=== PATIENT | male | born 1965 | race Caucasian/White ===

== ENCOUNTER 2018-06-12 12:19 | Emergency (ER) | payer MEDICARE, SELFPAY ==
[2018-06-12 12:20] VITALS: BP 162/106; PULSE 108; RESP 16; TEMP 36.9; O2SAT 100; BMI 25.8
[2018-06-12] MEDS: Diphth,Pertuss(Acell),Tet Vac 0.5 ML Vial IM (13:31)
[2018-06-12] MEDS: Lidocaine/Epi/Tetracaine 50 ML 1 APPLIC TOPICAL (13:32)
--- NOTE | 2018-06-12 15:15 | ED.VISSUMM ---
- ER Visit Summary Date of Service: 06/12/18 Chief Complaint: Left distal thigh laceration History of Present Illness: The patient is a 53 M was cutting wood with his brother when they slipped and the chainsaw lacerated his left lower thigh above the knee. This occurred within the last hour. He denies other injuries. Tetanus is not up-to-date. Physical Examination: Appearing middle-aged male. Vital signs are stable afebrile. H EENT exam unremarkable atraumatic. Neck nontender. Lungs clear to auscultation bilaterally. Heart regular rhythm no murmur. Rate about 100. Abdomen soft nontender. Normal bowel sounds no peritoneal signs. Patient is moving all 4 extremities are neurovascularly intact. He is a 5 cm jagged laceration to his left thigh distally above the knee. There is only mild oozing. There is no pulsatile bleeding. No obvious foreign body. He has full flexion-extension of the knee. It does not involve the suprapatellar tendon. It does not involve the joint. He has full range of motion of the knee. His foot is neurovascularly intact with dorsi and plantar flexion. Normal motor strength. Normal sensation. Strong DP pulse. Test Results: None Emergency Department Course and Treatment: Patient's tetanus was updated. Wound was locally anesthetized with topical LAT and then subcu lidocaine. Wound was cleaned with iodine thoroughly explored and washed with saline. Also irrigated with saline. No foreign bodies were noted. The laceration was closed using simple interrupted 5-0 Ethilon suture. Proper hemostasis and wound closure was obtained. The wound was approximately 5 cm in length. There were 6 5-0 Ethilon sutures used. Treatment Plan: Wound care. Clean daily. Sutures out in 10 days. Disposition: Discharge Impression: Acute left lower thigh laceration versus chain saw Laceration repair by ER 5 cm Tetanus updated This note was generated with [employer] dictation software. It may contain incorrect words, spelling, and punctuation that were not noted in review of the chart prior to signing ED Disposition - Plan for ED Patient: Chief Complaint: Laceration Referrals: Care Physician,No Primary [Primary Care Provider] -
--- NOTE | 2018-06-12 15:18 | ED.DEP ---
ED Disposition - Plan for ED Patient: Disposition: Home or Assisted Living Chief Complaint: Laceration Instructions: ED Laceration All Referrals: Carter Alvarado MD [STAFF PHYSICIAN] - 10 Day for suture removal Additional Instructions: Keep wound clean. Clean daily with soap and water or peroxide monitor. Tylenol and/or Motrin for pain. Ice to the wound. Apply antibiotic ointment daily. Suture removal in 10 days.
== END 2018-06-12 15:34 | disposition home or self-care (01) ==
PROVIDERS: Emergency Provider Emergency Medicine
DX: S71.112A Laceration without foreign body, left thigh, initial encounter (principal); Z23 Encounter for immunization; W29.3XXA Contact with powered garden and outdoor hand tools and machinery, initial encounter; Y93.89 Activity, other specified; Y92.009 Unspecified place in unspecified non-institutional (private) residence as the place of occurrence of the external cause; Y99.8 Other external cause status
CPT/HCPCS: 12002; 90471; 90715; 99284

== ENCOUNTER 2019-01-29 20:07 | Emergency (ER) | payer MEDICARE, SELFPAY ==
[2019-01-29 20:08] VITALS: BP 156/110; PULSE 133; RESP 18; TEMP 38.2; O2SAT 98; BMI 27.5
[2019-01-29 20:47] VITALS: PULSE 121; RESP 18; O2SAT 98
--- NOTE | 2019-01-29 20:54 | RAD_ITS ---
STUDY: X-RAY CHEST REASON FOR EXAM: Male, 53 years old. Cough. TECHNIQUE: PA and lateral views of the chest. COMPARISON: None. FINDINGS: Telemetry wires overlie the chest. Lungs are hypoexpanded. There is no focal mass or infiltrate. There is no demonstrated pleural abnormality. Normal size heart. Normal mediastinum and jeremi. Normal visualized pulmonary arteries. Normal visualized aortic arch and descending thoracic aorta. Degenerative changes and mild dextroscoliosis of the lumbar spine. There is an exaggerated thoracic kyphosis. Normal visualized ribs, clavicles, and shoulders. There is no demonstrated abnormality of the visualized soft tissue structures of the upper abdomen. RAD/Chest PA and Lateral IMPRESSION: No acute cardiopulmonary disease. Electronically Signed: Shahram Anderson DO at 21:06 EDT Tel [phone], Service support ,
[2019-01-29] MEDS: 0.9% Normal Saline 1,000 ML 1000 ML IV (21:01)
[2019-01-29] MEDS: Acetaminophen 500 MG Tablet 1000 MG PO (21:01)
[2019-01-29 21:21] LABS: Absolute Lymphocyte Count 1.02 X10^3/ul (0.83-4.51); Absolute Neutrophil Count 8.2 X10^3/uL (2.0-7.7); Basophil# 0.03 X10^3/uL; Basophil% 0.3 % (0-1); Eosinophil# 0.13 X10^3/uL; Eosinophils% 1.3 % (0-5); Hematocrit 46.3 % (40-54); Hemoglobin 15.4 g/dl (13.0-16.5); Lymphocyte # 1.02 X10^3/ul (4.0); Lymphocyte % 10.1 % (19-41); Mean Corp Hgb Conc 33.3 g/gl (32-36); Mean Corpuscular Hgb 28.9 pg (27.0-32.0); Mean Platelet Vol. 11.2 fl (6.2-12.0); Monocyte% 6.9 % (0-10); Neutrophil % 81.3 % (47-70); POSITIVE COUNT NO; POSITIVE DIFFERENTIAL NO; POSITIVE MORPHOLOGY NO; Platelet Count 239 K/mm3 (150-450); RBC Distribution Width CV 12.9 % (11.6-14.6); RBC Distribution Width SD 41.5 fl (35.1-43.9); Red Blood Count 5.32 M/mm3 (4.6-6.2); White Blood Count 10.1 K/mm3 (4.4-11.0)
[2019-01-29 21:45] LABS: Anion Gap 5 (5-15); BUN 16 mg/dL (7-18); BUN/Creat Ratio 12.8 RATIO (10-20); Calcium,Total 8.6 mg/dL (8.5-10.1); Chloride 108 mmol/L (98-107); Creatinine, Serum 1.25 mg/dL (0.70-1.30); EST Glomerular Filtration Rate 64 mL/min (>60); Est Glom Filt Rate - Afr Amer 77 mL/min (>60); Glucose 101 mg/dL (74-106); Potassium 3.7 mmol/L (3.5-5.1); Sodium Level 140 mmol/L (136-145)
[2019-01-29 21:47] LABS: Lactic Acid 1.3 mmol/L (0.4-2.0)
[2019-01-29 22:10] VITALS: PULSE 109; RESP 24; TEMP 38.2; O2SAT 95
--- NOTE | 2019-01-29 22:57 | ED.VISSUMM ---
- ER Visit Summary Date of Service: 01/29/19 Chief Complaint: [Cough and fever presents the emergency department complaint of a productive cough of] History of Present Illness: The patient is a 53 M [2 days. Patient is bringing up some white phlegm. He feels mildly short of breath. Patient was seen in urgent care today and referred to the emergency department. Patient is a type II diabetic and has history of hypertension. He denies recent travel or surgery. He denies any chest pain. He denies ear pain. He has had a mild sore throat. Physical Examination: [HEENT-PERRLA, EOMI. Cranial nerves II through XII grossly intact. TMs clear. Mucous membranes moist. No adenopathy. Pharynx slightly erythematous. No exudates. Uvula midline. No trismus. Cardiovascular-regular rate and rhythm without murmur or ectopy Lungs-clear to auscultation, chest wall stable without crepitus or subcu emphysema Abdomen-normoactive bowel sounds, soft, nontender, no rebound or rigidity, no peritoneal signs. Extremities-intact ?4, normal range of motion, normal pulses, atraumatic] Test Results: [Blood cultures ordered. CBC with differential obtained showing a 10.1, hemoglobin 15, hematocrit 46, placed 239. Chemistries unremarkable. Lactate was 1.3. Influenza was negative. Chest x-ray showed nothing acute.] Emergency Department Course and Treatment: [Patient received a gram of Tylenol for a temperature of 100.8. Patient's tachycardia improved from 133 down in the low 100s. Patient was given a dose of Zithromax and Tessalon Perle.] Treatment Plan: [Patient will be treated with Zithromax and Tessalon Perles for suspected bronchitis. 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 Patient advised to return if increasing shortness of breath or condition should worsen anyway.] Disposition: [Discharged home in stable condition] Impression: [Bronchitis] This note was generated with [employer] dictation software. It may contain incorrect words, spelling, and punctuation that were not noted in review of the chart prior to signing ED Disposition - Plan for ED Patient: Referrals: Care Physician,No Primary [Primary Care Provider] -
--- NOTE | 2019-01-29 23:00 | ED.DCSUM_ITS ---
- ER Visit Summary Date of Service: 01/29/19 Chief Complaint: [Cough and fever presents the emergency department complaint of a productive cough of] History of Present Illness: The patient is a 53 M [2 days. Patient is bringing up some white phlegm. He feels mildly short of breath. Patient was seen in [facility] today and referred to the emergency department. Patient is a type II diabetic and has history of hypertension. He denies recent travel or surgery. He denies any chest pain. He denies ear pain. He has had a mild sore throat. Physical Examination: [HEENT-PERRLA, EOMI. Cranial nerves II through XII grossly intact. TMs clear. Mucous membranes moist. No adenopathy. Pharynx slightly erythematous. No exudates. Uvula midline. No trismus. Cardiovascular-regular rate and rhythm without murmur or ectopy Lungs-clear to auscultation, chest wall stable without crepitus or subcu emphysema Abdomen-normoactive bowel sounds, soft, nontender, no rebound or rigidity, no peritoneal signs. Extremities-intact ?4, normal range of motion, normal pulses, atraumatic] Test Results: [Blood cultures ordered. CBC with differential obtained showing a 10.1, hemoglobin 15, hematocrit 46, placed 239. Chemistries unremarkable. Lactate was 1.3. Influenza was negative. Chest x-ray showed nothing acute.] Emergency Department Course and Treatment: [Patient received a gram of Tylenol for a temperature of 100.8. Patient's tachycardia improved from 133 down in the low 100s. Patient was given a dose of Zithromax and Tessalon Perle.] Treatment Plan: [Patient will be treated with Zithromax and Tessalon Perles for suspected bronchitis. 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 Patient advised to return if increasing shortness of breath or condition should worsen anyway.] Disposition: [Discharged home in stable condition] Impression: [Bronchitis] This note was generated with [employer] dictation software. It may contain incorrect words, spelling, and punctuation that were not noted in review of the chart prior to signing ED Disposition - Plan for ED Patient: Referrals: Care Physician,No Primary [Primary Care Provider] -
--- NOTE | 2019-01-29 23:00 | ED.DEP ---
ED Disposition - Plan for ED Patient: Instructions: ED Upper Resp Infec Abx Tx Prescriptions: Azithromycin [Zithromax] 250 mg PO DAILY #4 tab Benzonatate [Tessalon Perle] 200 mg PO TID PRN PRN #20 cap PRN Reason: Cough Referrals: Care Physician,No Primary [Primary Care Provider] - Donnie Lemus MD [STAFF PHYSICIAN] - 3-5 Days
[2019-01-29] MEDS: Azithromycin 250 MG Tablet 500 MG PO (23:04)
[2019-01-29] MEDS: Benzonatate 100 MG Capsule 200 MG PO (23:04)
[2019-01-29 23:05] VITALS: BP 139/106; PULSE 102
== END 2019-01-29 23:08 | disposition home or self-care (01) ==
LOC: ED 20:52
PROVIDERS: Emergency Provider Emergency Medicine
DX: J40 Bronchitis, not specified as acute or chronic (principal); E11.9 Type 2 diabetes mellitus without complications; I10 Essential (primary) hypertension
CPT/HCPCS: 36415; 71046; 80048; 83605; 85025; 87040; 87804; 96360; 99284; J7030

== ENCOUNTER 2019-05-13 10:16 | Emergency (ER) | payer MEDICARE, SELFPAY ==
[2019-05-13 10:17] VITALS: BP 163/116; PULSE 67; PULSE 82; RESP 18; TEMP 37.2; O2SAT 100; O2SAT 99; BMI 30.7
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
[2019-05-13 10:33] LABS: Absolute Lymphocyte Count 2.53 X10^3/uL (0.83-4.51); Absolute Neutrophil Count 4.6 X10^3/uL (2.0-7.7); Basophil# 0.05 X10^3/uL; Basophil% 0.6 % (0-1); Eosinophil# 0.13 X10^3/uL; Eosinophils% 1.6 % (0-5); Hematocrit 45.2 % (40-54); Hemoglobin 14.8 g/dL (13.0-16.5); Lymphocyte # 2.53 X10^3/ul (4.0); Lymphocyte % 31.5 % (19-41); Mean Corp Hgb Conc 32.7 g/dL (32-36); Mean Corpuscular Hgb 28.6 pg (27.0-32.0); Mean Corpuscular Volume 87.4 fL (80-94); Mean Platelet Vol. 10.9 fl (6.2-12.0); Monocyte# 0.71 X10^3/uL; Monocyte% 8.8 % (0-10); NRBC Flagged by Analyzer 0 % (0-5); Neutrophil % 57.4 % (47-70); Platelet Count 232 K/mm3 (150-450); RBC Distribution Width CV 12.7 % (11.6-14.6); RBC Distribution Width SD 40.2 fl (35.1-43.9); Red Blood Count 5.17 M/mm3 (4.6-6.2)
[2019-05-13] MEDS: Morphine 4 MG/ML Syringe IV (10:34)
[2019-05-13 10:47] LABS: Anion Gap 5 (5-15); BUN 15 mg/dL (7-18); BUN/Creat Ratio 12.1 RATIO (10-20); Calcium,Total 8.3 mg/dL (8.5-10.1); Chloride 112 mmol/L (98-107); Creatinine, Serum 1.24 mg/dL (0.70-1.30); EST Glomerular Filtration Rate 64 mL/min (>60); Est Glom Filt Rate - Afr Amer 78 mL/min (>60); Estimated Creatinine Clearance 60.03 ml/min; Glucose 98 mg/dL (74-106); Potassium 3.9 mmol/L (3.5-5.1); Sodium Level 142 mmol/L (136-145)
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
[2019-05-13 11:02] LABS: Alcohol, Blood (Medical)-Serum < 3.0 mg/dL
[2019-05-13 13:01] VITALS: BP 168/94; PULSE 66; RESP 16
== END 2019-05-13 13:02 | disposition home or self-care (01) ==
PROVIDERS: Emergency Provider Emergency Medicine
DX: S16.1XXA Strain of muscle, fascia and tendon at neck level, initial encounter (principal); S39.012A Strain of muscle, fascia and tendon of lower back, initial encounter; S20.212A Contusion of left front wall of thorax, initial encounter; V89.2XXA Person injured in unspecified motor-vehicle accident, traffic, initial encounter; Y93.89 Activity, other specified
CPT/HCPCS: 70450; 71250; 72125; 72131; 80048; 80320; 85025; 96374; 99285; J7030; A4216; G0480

== ENCOUNTER 2019-10-30 23:50 | Emergency (ER) | payer MEDICARE, SELFPAY ==
[2019-10-30 23:51] VITALS: BP 155/112; PULSE 97; RESP 18; TEMP 37; O2SAT 98; BMI 30.8
--- NOTE | 2019-10-31 00:26 | RAD_ITS ---
STUDY: X-RAY CHEST REASON FOR EXAM: Male, 54 years old. c/o cough and sob TECHNIQUE: PA and lateral chest COMPARISON: 01/02/2019 FINDINGS: There is a stable hiatal hernia. There is stable linear scarring within the left lower lobe.. There is no demonstrated pleural abnormality. There is no fracture of the right clavicle. There is a 1 cm curvilinear density projecting over the posterior soft tissues within the upper thoracic region. Normal size heart. Normal mediastinum and jeremi. Normal visualized pulmonary arteries. Normal visualized aortic arch and descending thoracic aorta. There are stable degenerative changes of the lower thoracic and lumbar spine.. There is stable likely old fracture deformity of the right scapula. There is no demonstrated abnormality of the visualized soft tissue structures of the upper abdomen. RAD/Chest PA and Lateral IMPRESSION: No acute findings Stable hiatal hernia Stable linear scarring within the left lower lobe Stable deformity of the right scapula due to old fracture 1 cm density projecting over the posterior soft tissues upper thoracic region this may be external to the patient or foreign body within the soft tissues Electronically Signed: Wesley Devine, at 1:40 EST Tel , Service support ,
[2019-10-31] MEDS: Ipratropium/Albuterol Sulfate 3 ML AMPUL.NEB INHALATION (00:37)
[2019-10-31] MEDS: Albuterol 2.5 MG/3 ML VIAL.NEB. INHALATION (00:37)
[2019-10-31 00:38] VITALS: PULSE 92; RESP 18
[2019-10-31 00:40] LABS: Bacteria 0 SEEN /hpf (None Seen); Mucous, Urine 0 SEEN /hpf (<or=2+); Red Blood Cells-Urine 0 SEEN /hpf (0-5); Squamous Epithelial Cells - UA 0 SEEN /hpf (0-5); White Blood Cells 0 SEEN /hpf (0-5)
[2019-10-31 00:50] LABS: Color, Urine Yellow (Yellow); Glucose, Dipstick Normal (Normal); Ketone-Dipstick 5 mg/dl (Negative); Leukocyte Esterase-Dipstick Negative /ul (Negative); Nitrite-Dipstick Negative (Negative); Occult Blood-Urine Negative /ul (Negative); Protein-Dipstick 15 mg/dl (Negative); Specific Gravity, Urine 1.025 (1.002-1.030); Urine Bilirubin Dipstick Negative (Negative); Urine Clarity Clear (Clear); Urine Urobilinogen 4 mg/dl (Normal)
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
[2019-10-31] MEDS: Acetaminophen 325 MG Tablet 650 MG PO (01:04)
[2019-10-31] MEDS: guaiFENesin Dm 10 ML UDC PO (01:04)
[2019-10-31] MEDS: predniSONE 20 MG Tablet 40 MG PO (02:04)
[2019-10-31 02:17] VITALS: BP 148/64; PULSE 89; RESP 16; O2SAT 97
== END 2019-10-31 02:17 | disposition home or self-care (01) ==
PROVIDERS: Emergency Provider Emergency Medicine
DX: J45.901 Unspecified asthma with (acute) exacerbation (principal); J06.9 Acute upper respiratory infection, unspecified; R30.0 Dysuria
CPT/HCPCS: 71046; 81001; 94640; 99283

== ENCOUNTER 2020-05-12 09:07 | Emergency (ER) | payer MEDICARE, SELFPAY ==
[2020-05-12 09:08] VITALS: BP 188/103; PULSE 71; RESP 18; TEMP 36.3; O2SAT 99; BMI 27.4
--- NOTE | 2020-05-12 09:30 | ED.DCSUM_ITS ---
History of Present Illness Chief Complaint: Shortness of Breath Narrative: This patient is a 55-year-old male who presents with shortness of breath. He does have a history of asthma. He uses a rescue inhaler 4 times a day regularly. He does not have a primary care physician. He is not on maintenance asthma medications. He states this morning he was unable to find his inhaler and became short of breath because it was hot in his house where he was sitting. He actually feels better now that he is in air conditioning. He denies recent infectious symptoms such as fevers congestion rhinorrhea sore throat vomiting diarrhea myalgias or arthralgias. He denies any pain. Past Medical History - Allergies and Home Meds Allergies/Adverse Reactions: Allergies No Known Allergies Allergy (Verified 05/12/20 09:10) Primary Care Physician: Care Physician,No Primary [Primary Care Provider] - Past Medical History: - - Asthma, history of hypertension?noncompliant, no longer sees a primary care physician Smoking Status: Never smoker Review of Systems All systems negative except as indicated General: Denies: Fever Eyes: Denies: Visual changes - bilaterally ENT: Denies: Bilateral ear pain Cardiovascular: Denies: Chest pain Respiratory: Reports: Dyspnea. Denies: Sputum Gastrointestinal: Denies: Nausea, Vomiting, Diarrhea Musculoskeletal: Denies: Myalgias, Arthralgias Skin: Denies: Rash Neurological: Denies: Headache Allergy: Denies: Uticaria Physical Exam Vital Signs/Narrative: Vital Signs Temp Pulse Resp BP Pulse Ox 05/12/20 09:08 97.4 F L 71 18 188/103 H 99 Inital Vital Signs reviewed: Yes General: Well nourished Head: Normocephalic Eyes: EOMI ENT: Moist mucous membranes Neck: Supple Cardiovascular: Regular rate, Regular rhythm Respiratory: No distress, Decreased Air Movement - Slightly. Negative for: Rales, Rhonchi, Wheezing Abdomen: Soft Skin: Normal color Neurological: Alert Psychological: Normal affect Diagnostic/Tx/Re-eval - Medical Decision Making Patient has a history of asthma and uses a rescue inhaler daily. He could not find his inhaler this morning and felt short of breath while sitting in a hot environment. He now feels better in the air conditioning. He does not have any infectious symptoms. I did advise that if he is needing to use a rescue inhaler daily he likely needs to be on maintenance medications. He was also advised that his blood pressure is elevated today. I stressed the importance of follow- up and establishing a primary care physician. I did provide a prescription for a new albuterol inhaler. Patient understands to return for new or worsening symptoms. He is agreeable to this plan. Patient was discharged. ED Disposition - Plan for ED Patient: Disposition: Home or Assisted Living Diagnosis: Asthma Instructions: ED REACTIVE AIRWAY DISEASE Adult Prescriptions: Albuterol Inhaler [Ventolin Hfa] 1 - 2 puff INHALATION Q4H PRN PRN #1 inhaler PRN Reason: Wheezing Prescription Printed Referrals: Care Physician,No Primary [Primary Care Provider] - Ying Guerin MD [STAFF PHYSICIAN] -
[2020-05-12 11:07] VITALS: RESP 16; RESP 20
== END 2020-05-12 11:08 | disposition home or self-care (01) ==
LOC: ED 10:41
PROVIDERS: Emergency Provider Emergency Medicine
DX: J45.909 Unspecified asthma, uncomplicated (principal)
CPT/HCPCS: 99282

== ENCOUNTER 2020-08-06 10:36 | Emergency (ER) | payer MEDICARE, SELFPAY ==
[2020-07-07 09:30] VITALS: BMI 27.4
[2020-08-06 10:37] VITALS: BP 172/105; PULSE 109; RESP 22; TEMP 36.8; O2SAT 98; BMI 26.8
[2020-08-06 10:43] VITALS: O2SAT 100
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
--- NOTE | 2020-08-06 10:50 | RAD_ITS ---
STUDY: X-RAY CHEST REASON FOR EXAM: Male, 55 years old. SOB, anxiety, asthma TECHNIQUE: Single AP portable view of the chest. COMPARISON: Comparison is made with prior examination of 06/17/2020. FINDINGS: Stable increased markings at the lung bases slightly more abundant on the left side suggestive of a linear atelectasis and/or scarring. There is no demonstrated pleural abnormality. Normal size heart. Normal mediastinum and jeremi. Normal visualized pulmonary arteries. There is atherosclerotic tortuosity of the aortic arch and descending thoracic aorta. There are diffuse degenerative changes of the visualized thoracic spine. Normal visualized ribs, clavicles, and shoulders. There is no demonstrated abnormality of the visualized soft tissue structures of the upper abdomen. RAD/Chest 1 View IMPRESSION: Stable mild increased markings at the lung bases suggestive of bibasilar scarring. Electronically Signed: Mike Kramer, at 11:22 EST , Service support ,
[2020-08-06] MEDS: LORazepam 0.5 MG Tablet PO (10:51)
[2020-08-06 10:57] VITALS: PULSE 97; RESP 16
[2020-08-06] MEDS: Ipratropium/Albuterol Sulfate 3 ML AMPUL.NEB INHALATION (10:57)
== END 2020-08-06 11:59 | disposition home or self-care (01) ==
PROVIDERS: Emergency Provider Emergency Medicine; PCP Nurse Practitioner
DX: F41.9 Anxiety disorder, unspecified (principal); J45.909 Unspecified asthma, uncomplicated
CPT/HCPCS: 71045; 94640; 99284

== ENCOUNTER → 2020-08-10 05:56 | Outpatient (CLI) | payer MEDICARE, SELFPAY ==
[2020-07-07 09:30] VITALS: BMI 27.4
[2020-08-06 10:37] VITALS: BMI 26.8
--- NOTE | 2020-08-10 09:08 | STRESSREP ---
Stress Test Report Pharmacologic myocardial perfusion stress test. Resting EKG demonstrates normal sinus rhythm with a rate of 76 bpm normal intervals are noted resting blood pressure 160/102 mmHg. 0.4 mg of regadenoson was infused per usual protocol followed by rapid venous saline flush injection continuous EKG monitoring was performed. The maximum heart rate attained was 113 bpm which is 69% of maximum predicted heart rate the maximum workload was 1 metabolic equivalent. At rest there were no ST or T wave changes noted to suggest abnormal flow reserve at peak infusion nonspecific ST-T wave changes were noted with no meet the criteria for ischemia. No clinical angina was noted. The final blood pressure was 152/104. Myocardial perfusion protocol. 11.2 mCi of technetium 99m sestamibi was injected at rest. 0.4 mg of regadenoson was infused per usual protocol. At peak infusion 31.1 mCi of technetium 99m sestamibi was injected stress images were obtained stress and rest images were reconstructed and compared in the short axis vertical long horizontal long axis. Gated images were also obtained per Perfusion SPECT analysis: Review of the stress images demonstrate normal uptake of tracer noted in all areas of the myocardium the resting images similar demonstrate normal uptake of tracer noted in all areas of the myocardium. No reversibility is noted suggest ischemia no previous infarct is noted. Gated SPECT analysis: The gated ejection fraction is 52%. Conclusion: Normal pharmacologic myocardial perfusion stress test. Preserved ejection fraction.
== END ==
LOC: CVS 05:57
PROVIDERS: PCP Nurse Practitioner; Referring Provider Nurse Practitioner; Visit Provider Nurse Practitioner
DX: R06.02 Shortness of breath (principal)
CPT/HCPCS: 78452; 93017; A9500; A4216; J2785

== ENCOUNTER → 2020-10-08 15:56 | Outpatient (CLI) | payer MEDICARE, SELFPAY ==
--- NOTE | 2020-10-08 15:59 | RAD_ITS ---
HISTORY: DYSPNEA, HX OF ASTHMA EXAM: XR Chest 2 Views: COMPARISON: August 06, 2020 FINDINGS: # of images incl. paperwork: 2 Rotoscoliosis persists. Pulmonary hypoexpansion persists Left lower lobe scarring is similar Heart is not enlarged. No acute osseous pathology perceived. Pulmonary vascularity is distinct. No effusions. RAD/Chest PA and Lateral IMPRESSION: No acute disease perceived. at 0246 Reported and signed by: Juan Gonzalez MD Electronically Signed: Juan Gonzalez MD at 2:45 EST Tel , Service support ,
== END ==
LOC: RAD 15:57
PROVIDERS: PCP Nurse Practitioner; Referring Provider Internal Medicine Pulmonary Disease; Visit Provider Internal Medicine Pulmonary Disease
DX: R06.00 Dyspnea, unspecified (principal)
CPT/HCPCS: 71046

== ENCOUNTER → 2021-01-20 09:08 | Outpatient (CLI) | payer MEDICARE, SELFPAY ==
--- NOTE | 2021-01-20 09:25 | RAD_ITS ---
PROCEDURE: Sniff test. DATE OF EXAMINATION: 01/20/2021 INDICATION: Male, 55 years old. Dyspnea. FLUOROSCOPY TIME (if supplied): (28 seconds) minutes/seconds. One image was obtained. A sniff test was obtained. There is normal movement of the hemidiaphragms. Hiatal hernia. Stable linear density at the left lung base. RAD/Fluoroscopy 1 Hr or Less IMPRESSION: Normal movement of the hemidiaphragms. Electronically Signed: Mike Kramer MD at 14:05 EDT , Service support ,
== END ==
PROVIDERS: PCP Nurse Practitioner; Referring Provider Internal Medicine Pulmonary Disease; Visit Provider Internal Medicine Pulmonary Disease
DX: R06.00 Dyspnea, unspecified (principal)
CPT/HCPCS: 76000

== ENCOUNTER → 2021-01-25 09:11 | Outpatient (CLI) | payer MEDICARE, SELFPAY ==
--- NOTE | 2021-01-25 09:14 | BI_ITS ---
MAMMOGRAPHY - BILATERAL DIAGNOSTIC REASON FOR EXAM: Male, 55 years old. 3 week history of left breast lump. PERTINENT HISTORY: Non-contributory. TECHNIQUE: Digital bilateral breast willis (3D mammographic acquisition) in the CC and MLO projections. 2-D mediolateral oblique (MLO) and craniocaudad (CC) views of both breasts were obtained. CAD: Full Field Digital Mammography with Computer Added Detection was performed. COMPARISON: None. Baseline examination. FINDINGS: Breast Composition: The breasts are almost entirely fatty. There are no dominant masses or suspicious calcifications. Small benign-appearing bilateral axillary lymph nodes. No other significant abnormalities are identified. BI/DIAG MAMM W/CAD, BILAT IMPRESSION: Negative diagnostic mammogram. With the patient''s history of a 3 week history of left breast lump, correlation with ultrasound is recommended. ASSESSMENT CATEGORY: BIRADS Category 0: Incomplete. Need additional imaging evaluation. A letter regarding these results will be sent to the patient by the facility within 30 days. Approximately 10% of breast cancers are not detected by mammography. A normal mammogram should not delay biopsy of a clinically suspicious abnormality. Electronically Signed: Mike Kramer MD at 10:03 EDT , Service support ,
--- NOTE | 2021-01-25 09:19 | US_ITS ---
STUDY: ULTRASOUND BREAST - LEFT REASON FOR EXAM: Male, 55 years old. Palpable lump left breast. TECHNIQUE: Axial and longitudinal images of the LEFT breast were performed with a high resolution ultrasound transducer. # OF IMAGES: 12 COMPARISON: Comparison is made with prior mammogram done earlier today. FINDINGS: LEFT Breast: The upper inner quadrant of the left breast was examined by ultrasound. No sonographic abnormality is seen. A rib is seen at the site of the palpable abnormality. US/Breast Limited Unilateral IMPRESSION: No ultrasonographic abnormality is seen. ASSESSMENT CATEGORY: BIRADS Category 2: Benign. A letter regarding these results will be sent to the patient by the facility within 30 days. Electronically Signed: Mike Kramer MD at 10:37 EDT , Service support ,
== END ==
LOC: OPBI 09:12
PROVIDERS: PCP Nurse Practitioner; Referring Provider Nurse Practitioner; Visit Provider Nurse Practitioner
DX: N63.22 Unspecified lump in the left breast, upper inner quadrant (principal)
CPT/HCPCS: 76642; 77062; 77066; G0279

== ENCOUNTER 2021-12-17 11:27 | Emergency (ER) | payer MEDICARE, SELFPAY ==
[2021-12-17 11:29] VITALS: BP 166/108; PULSE 100; RESP 18; TEMP 37.2; O2SAT 99; BMI 26.6
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
--- NOTE | 2021-12-17 13:28 | RAD_ITS ---
EXAM: XR LEFT RIBS AND AP CHEST, 3 OR MORE VIEWS : 1965 CLINICAL INDICATION: Injury TECHNIQUE: Frontal and oblique views of the left ribs and frontal view of the chest. This report was created using [employer] report generation technology. COMPARISON: None. FINDINGS: LUNGS AND PLEURAL SPACES: Unremarkable. No consolidation or edema. No pneumothorax. No effusion. HEART: Unremarkable. Cardiac silhouette not enlarged. MEDIASTINUM: Central airways and mediastinal contour are unremarkable. BONES/JOINTS: Unremarkable. No evidence of displaced rib fractures. RAD/Ribs Uni Min 3V w/PA Chest IMPRESSION: Negative chest and left ribs series. at 1502 Reported and signed by: Easton King MD Electronically Signed: Easton King MD at 15:01 EDT ,
--- NOTE | 2021-12-17 13:29 | CT_ITS ---
EXAM: CT CERVICAL SPINE WITHOUT INTRAVENOUS CONTRAST : 1965 CLINICAL INDICATION: Injury/Pain TECHNIQUE: Helically acquired images were obtained of the cervical spine without intravenous contrast. 2D reformatted images were reviewed. This CT exam was performed using one or more of the following dose reduction techniques: automated exposure control, adjustment of the mA and/or kV according to patient size, and/or use of iterative reconstruction technique. This report was created using [employer] report generation technology. COMPARISON: None. FINDINGS: VERTEBRAE: Unremarkable. No fracture. No traumatic subluxation. No discrete lytic or blastic abnormality. Normal alignment. Normal craniocervical junction and cervicothoracic junction. DISCS/SPINAL CANAL/NEURAL FORAMINA: Unremarkable. Disc heights are preserved. No critical stenosis. SOFT TISSUES: Unremarkable. No prevertebral soft tissue swelling. LYMPH NODES: Unremarkable. No cervical adenopathy. LUNG APICES: Unremarkable as visualized. Clear. CT/Spine Cervical without Contras IMPRESSION: No evidence of acute cervical spinal fracture or spondylolisthesis. Individualized dose optimization techniques were used for this CT. at 1438 Reported and signed by: Easton King MD Electronically Signed: Easton King MD at 14:37 EDT ,
--- NOTE | 2021-12-17 13:29 | RAD_ITS ---
EXAM: XR LEFT SHOULDER COMPLETE, 2 OR MORE VIEWS : 1965 CLINICAL INDICATION: Injury/Pain TECHNIQUE: Two or more views of the left shoulder. This report was created using [employer] report generation technology. COMPARISON: None. FINDINGS: BONES/JOINTS: Unremarkable. No acute fracture. No subluxation. Normal alignment. Preservation of the joint space. No sclerotic or destructive changes observed. SOFT TISSUES: Unremarkable. No soft tissue swelling or gas. No radiopaque foreign body. RAD/Shoulder min 2 Views IMPRESSION: Negative left shoulder x-rays. at 1502 Reported and signed by: Easton King MD Electronically Signed: Easton King MD at 15:01 EDT ,
--- NOTE | 2021-12-17 13:29 | CT_ITS ---
EXAM: CT HEAD WITHOUT INTRAVENOUS CONTRAST : 1965 CLINICAL INDICATION: Injury/Pain TECHNIQUE: Multiple axial images were obtained of the head without intravenous contrast. This CT exam was performed using one or more of the following dose reduction techniques: automated exposure control, adjustment of the mA and/or kV according to patient size, and/or use of iterative reconstruction technique. This report was created using [employer] report generation technology. COMPARISON: None. FINDINGS: BRAIN AND EXTRA-AXIAL SPACES: There is mild enlargement of the ventricular system and cortical sulci. There is encephalomalacia in the right frontal lobe compatible with remote infarct which is stable. There is hypoattenuation in the periventricular white matter. No intra- or extra-axial hemorrhage. No intracranial mass or mass effect. Posterior fossa structures are unremarkable. Basal cisterns are patent. BONES/JOINTS: Unremarkable. No discrete lytic or blastic abnormalities. SINUSES: Unremarkable as visualized. Clear. MASTOID AIR CELLS: Unremarkable. Clear. ORBITS: Visualized globes, extraocular muscles, optic nerves and retrobulbar fat appear unremarkable. CT/Brain/Head without Contrast IMPRESSION: 1. No acute intracranial abnormality. There has been no significant change from the reference examination. 2. Remote right frontal lobe infarct. There is stable underlying senescent change with small vessel ischemia. Individualized dose optimization techniques were used for this CT. at 1430 Reported and signed by: Easton King MD Electronically Signed: Easton King MD at 14:29 EDT ,
--- NOTE | 2021-12-17 13:29 | RAD_ITS ---
EXAM: XR LUMBOSACRAL SPINE, 2 OR 3 VIEWS : 1965 CLINICAL INDICATION: Injury/Pain TECHNIQUE: Frontal and lateral views of the lumbar spine and sacrum. This report was created using [employer] technology. COMPARISON: None. FINDINGS: VERTEBRAE: Unremarkable. Preserved vertebral body height. No fracture. No spondylolisthesis. Preservation of the normal lumbar lordosis. No significant facet arthropathy. DISC SPACES: No acute findings. Disc spaces are maintained. GASTROINTESTINAL TRACT: Unremarkable as visualized. Included bowel gas pattern is non-obstructive. RAD/Lumbar Spine 2 or 3 Views IMPRESSION: No evidence of lumbar spinal fracture or spondylolisthesis. at 1501 Reported and signed by: Easton King MD Electronically Signed: Easton King MD at 15:00 EDT ,
== END 2021-12-17 17:55 | disposition home or self-care (01) ==
PROVIDERS: Emergency Provider Emergency Medicine; PCP Nurse Practitioner; Visit Provider Emergency Medicine
DX: S09.90XA Unspecified injury of head, initial encounter (principal); S16.1XXA Strain of muscle, fascia and tendon at neck level, initial encounter; S39.012A Strain of muscle, fascia and tendon of lower back, initial encounter; S20.20XA Contusion of thorax, unspecified, initial encounter; S40.012A Contusion of left shoulder, initial encounter; Y04.8XXA Assault by other bodily force, initial encounter
CPT/HCPCS: 70450; 71101; 72100; 72125; 73030; 99284

== ENCOUNTER 2022-01-28 05:46 | Emergency (ER) | payer MEDICARE, SELFPAY ==
[2022-01-28 05:48] VITALS: BP 175/110; PULSE 98; RESP 18; TEMP 37; O2SAT 97; BMI 27.1
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
[2022-01-28] MEDS: HYDROcodone Bitartrate/Apap 5/325 Tablet PO (06:35)
== END 2022-01-28 06:37 | disposition home or self-care (01) ==
LOC: ED 06:27
PROVIDERS: Emergency Provider Student in an Organized Health Care Education/Training Program; PCP Internal Medicine; Visit Provider Student in an Organized Health Care Education/Training Program
DX: S16.1XXA Strain of muscle, fascia and tendon at neck level, initial encounter (principal); S96.919A Strain of unspecified muscle and tendon at ankle and foot level, unspecified foot, initial encounter; V89.2XXA Person injured in unspecified motor-vehicle accident, traffic, initial encounter
CPT/HCPCS: 99283

== ENCOUNTER 2022-05-05 10:25 | Emergency (ER) | payer MEDICARE, MEDICAID, SELFPAY ==
[2022-05-05 10:26] VITALS: BP 176/135; PULSE 88; RESP 14; TEMP 36.3; O2SAT 100; BMI 26.8
--- NOTE | 2022-05-05 10:39 | US_ITS ---
EXAM: US ABDOMEN LIMITED, RIGHT UPPER QUADRANT CLINICAL INDICATION: PAIN TECHNIQUE: Real-time ultrasound of the right upper quadrant with image documentation. This report was created using [employer] report generation technology. COMPARISON: None. FINDINGS: LIVER: Liver echogenicity appears increased suggesting diffuse parenchymal liver disease, likely steatosis. No intrahepatic biliary ductal dilation. GALLBLADDER: Multiple stones are present within a contracted gallbladder. No pericholecystic fluid. COMMON BILE DUCT: Unremarkable as visualized. The proximal common bile duct is within normal limits for the patient''s age. PANCREAS: Pancreas is obscured by overlying bowel gas. RIGHT KIDNEY: Normal. There is no hydronephrosis. No shadowing calculus. No focal lesion or perinephric collection is demonstrated. US/Gallbladder IMPRESSION: Cholelithiasis. Question parenchymal liver disease. Electronically Signed: Alex Godinez MD at 12:28 EDT ,
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
[2022-05-05] MEDS: 0.9% Normal Saline 1,000 ML 125 ML IV (10:47)
[2022-05-05] MEDS: Ondansetron 4 MG/2 ML Vial IV (10:51)
[2022-05-05] MEDS: Morphine 4 MG/ML Syringe IV ×2 (10:51→12:00)
[2022-05-05 10:58] LABS: Absolute Lymphocyte Count 2.02 X10^3/uL (0.83-4.51); Absolute Neutrophil Count 5.3 X10^3/uL (2.0-7.7); Basophil# 0.07 X10^3/uL; Basophil% 0.9 % (0-1); Eosinophil# 0.15 X10^3/uL; Eosinophils% 1.8 % (0-5); Hematocrit 45.5 % (40-54); Hemoglobin 14.9 g/dL (13.0-16.5); Lymphocyte # 2.02 X10^3/ul (0.83-4.51); Lymphocyte % 24.7 % (19-41); Mean Corp Hgb Conc 32.7 g/dL (32-36); Mean Corpuscular Hgb 28.5 pg (27.0-32.0); Mean Platelet Vol. 10.4 fl (6.2-12.0); Monocyte# 0.63 X10^3/uL; Monocyte% 7.7 % (0-10); NRBC Flagged by Analyzer 0 % (0-5); Neutrophil # 5.27 X10^3/uL (2.7-7.7); Neutrophil % 64.5 % (47-70); Platelet Count 289 K/mm3 (150-450); RBC Distribution Width CV 13.1 % (11.6-14.6); RBC Distribution Width SD 41.3 fl (35.1-43.9); Red Blood Count 5.23 M/mm3 (4.6-6.2); White Blood Count 8.2 K/mm3 (4.4-11.0)
[2022-05-05 11:11] LABS: AST(SGOT) 17 U/L (15-37); Alanine Aminotransfer ALT/SGPT 25 U/L (16-61); Albumin, Serum 3.4 g/dL (3.2-5.0); Alkaline Phosphatase 61 U/L (45-117); Anion Gap 4 (5-15); BUN 18 mg/dL (7-18); BUN/Creat Ratio 14.5 RATIO (10-20); Bilirubin, Direct 0.08 mg/dL (0.00-0.30); Calcium,Total 8.8 mg/dL (8.5-10.1); Chloride 110 mmol/L (98-107); Creatinine, Serum 1.24 mg/dL (0.70-1.30); EST Glomerular Filtration Rate 63 mL/min (>60); Est Glom Filt Rate - Afr Amer 77 mL/min (>60); Estimated Creatinine Clearance 62.06 ml/min; Globulin 4.2 g/dL (2.2-4.2); Glucose 116 mg/dL (74-106); Lipase 159 U/L (73-393); Potassium 3.9 mmol/L (3.5-5.1); Protein, Total 7.6 g/dL (6.4-8.2); Sodium Level 141 mmol/L (136-145)
[2022-05-05 12:59] VITALS: PULSE 98
== END 2022-05-05 13:12 | disposition home or self-care (01) ==
PROVIDERS: Emergency Provider Emergency Medicine; PCP Internal Medicine; Visit Provider Emergency Medicine
DX: K80.70 Calculus of gallbladder and bile duct without cholecystitis without obstruction (principal); R10.11 Right upper quadrant pain
CPT/HCPCS: 76705; 80048; 80076; 83690; 85025; 96374; 96375; 96376; 99283; J7030; A4216; J2405

== ENCOUNTER 2022-05-27 14:40 | Emergency (ER) | payer MEDICARE, MEDICAID, SELFPAY ==
[2022-05-27 14:41] VITALS: BP 172/115; PULSE 81; RESP 16; TEMP 36.8; O2SAT 100; BMI 26.7
--- NOTE | 2022-05-27 14:50 | EKG12_ITS ---
Test Reason : CP Blood Pressure : / mmHG Vent. Rate : 066 BPM Atrial Rate : 066 BPM P-R Int : 146 ms QRS Dur : 092 ms QT Int : 420 ms P-R-T Axes : 015 -25 004 degrees QTc Int : 440 ms Normal sinus rhythm Moderate voltage criteria for LVH, may be normal variant ( R in aVL , [place] product ) Borderline ECG Confirmed by BINA WOMACK, GIA ([id number]), editor trade journal LUISA HARE ([id number]) on 05/30/2022 9:37:59 AM Referred By: SABINA Confirmed By:CHRISTOPHER CURRAN MD
--- NOTE | 2022-05-27 14:58 | RAD_ITS ---
STUDY: X-RAY CHEST REASON FOR EXAM: Male, 57 years old. Chest pain TECHNIQUE: Single AP portable view of the chest. COMPARISON: Comparison is made with prior study 12/17/2021. FINDINGS: EKG electrodes are seen. Mild residual increased markings at the lung bases slightly worse on the left side suggestive of bibasilar atelectasis. There is no demonstrated pleural abnormality. Normal size heart. Normal mediastinum and jeremi. Normal visualized pulmonary arteries. There is atherosclerotic tortuosity of the aortic arch and descending thoracic aorta. Normal visualized thoracic spine. Normal visualized ribs, clavicles, and shoulders. There is no demonstrated abnormality of the visualized soft tissue structures of the upper abdomen. RAD/Chest 1 View (Portable) IMPRESSION: Mild increased markings at the lung bases slightly more prominent on the left side suggestive of bibasilar atelectasis. Electronically Signed: Mike Kramer MD at 15:10 EDT ,
[2022-05-27 15:01] VITALS: BP 177/108; PULSE 71; RESP 14; O2SAT 100
[2022-05-27] MEDS: Aspirin 81 MG TAB.CHEW 324 MG PO (15:15)
[2022-05-27 15:19] LABS: Absolute Lymphocyte Count 2.52 X10^3/uL (0.83-4.51); Absolute Neutrophil Count 4.9 X10^3/uL (2.0-7.7); Basophil# 0.05 X10^3/uL; Basophil% 0.6 % (0-1); Eosinophil# 0.09 X10^3/uL; Eosinophils% 1.1 % (0-5); Hematocrit 44.2 % (40-54); Hemoglobin 14.2 g/dL (13.0-16.5); Lymphocyte # 2.52 X10^3/ul (0.83-4.51); Lymphocyte % 30.3 % (19-41); Mean Corp Hgb Conc 32.1 g/dL (32-36); Mean Corpuscular Hgb 27.6 pg (27.0-32.0); Mean Platelet Vol. 10.6 fl (6.2-12.0); Monocyte# 0.78 X10^3/uL; Monocyte% 9.4 % (0-10); NRBC Flagged by Analyzer 0 % (0-5); Neutrophil # 4.86 X10^3/uL (2.7-7.7); Neutrophil % 58.4 % (47-70); Platelet Count 284 K/mm3 (150-450); RBC Distribution Width CV 12.9 % (11.6-14.6); RBC Distribution Width SD 39.9 fl (35.1-43.9); Red Blood Count 5.14 M/mm3 (4.6-6.2); White Blood Count 8.3 K/mm3 (4.4-11.0)
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
[2022-05-27 15:42] LABS: Anion Gap 8 (5-15); BUN 13 mg/dL (7-18); Calcium,Total 8.6 mg/dL (8.5-10.1); Chloride 109 mmol/L (98-107); Creatinine, Serum 1.08 mg/dL (0.70-1.30); EST Glomerular Filtration Rate 74 mL/min (>60); Est Glom Filt Rate - Afr Amer 90 mL/min (>60); Estimated Creatinine Clearance 71.25 ml/min; Glucose 92 mg/dL (74-106); Potassium 3.5 mmol/L (3.5-5.1); Sodium Level 140 mmol/L (136-145); Troponin-I HS 7 pg/mL (3.0-78.0)
[2022-05-27 16:49] VITALS: BP 173/104; PULSE 72; RESP 16; O2SAT 96
[2022-05-27] MEDS: hydrALAZINE 20 MG/ML Vial 10 MG IV (16:50)
== END 2022-05-27 16:58 | disposition home or self-care (01) ==
PROVIDERS: Emergency Provider Student in an Organized Health Care Education/Training Program; PCP Nurse Practitioner Family; Visit Provider Student in an Organized Health Care Education/Training Program
DX: I10 Essential (primary) hypertension (principal); R07.89 Other chest pain
CPT/HCPCS: 71045; 80048; 84484; 85025; 93005; 96374; 99282; A4216

== ENCOUNTER 2022-06-03 15:20 | Emergency (ER) | payer MEDICARE, MEDICAID, SELFPAY ==
[2022-06-03 15:23] VITALS: BP 154/102; PULSE 82; RESP 16; TEMP 37.1; O2SAT 99; BMI 24.3
--- NOTE | 2022-06-03 15:39 | EKG12_ITS ---
Test Reason : CP Blood Pressure : / mmHG Vent. Rate : 075 BPM Atrial Rate : 075 BPM P-R Int : 148 ms QRS Dur : 092 ms QT Int : 418 ms P-R-T Axes : 017 -25 001 degrees QTc Int : 466 ms Normal sinus rhythm Moderate voltage criteria for LVH, may be normal variant ( R in aVL , [place] product ) Borderline ECG Confirmed by BINA WOMACK, GIA ([id number]), restaurant expeditor LUISA HARE ([id number]) on 06/07/2022 9:02:24 AM Referred By: LUCINDA Confirmed By:CHRISTOPHER CURRAN MD
[2022-06-03 15:50] LABS: Bedside Glucose 116 mg/dL (74-106)
[2022-06-03 15:50] LABS: Absolute Lymphocyte Count 2.27 X10^3/uL (0.83-4.51); Absolute Neutrophil Count 4.3 X10^3/uL (2.0-7.7); Basophil# 0.05 X10^3/uL; Basophil% 0.6 % (0-1); Eosinophil# 0.34 X10^3/uL; Eosinophils% 4.4 % (0-5); Hematocrit 42.6 % (40-54); Hemoglobin 13.5 g/dL (13.0-16.5); Lymphocyte # 2.27 X10^3/ul (0.83-4.51); Lymphocyte % 29.4 % (19-41); Mean Corp Hgb Conc 31.7 g/dL (32-36); Mean Corpuscular Hgb 27.7 pg (27.0-32.0); Mean Corpuscular Volume 87.3 fL (80-94); Mean Platelet Vol. 10.6 fl (6.2-12.0); Monocyte# 0.79 X10^3/uL; Monocyte% 10.2 % (0-10); NRBC Flagged by Analyzer 0 % (0-5); Neutrophil # 4.26 X10^3/uL (2.7-7.7); Neutrophil % 55.1 % (47-70); Platelet Count 271 K/mm3 (150-450); RBC Distribution Width SD 41.3 fl (35.1-43.9); Red Blood Count 4.88 M/mm3 (4.6-6.2); White Blood Count 7.7 K/mm3 (4.4-11.0)
--- NOTE | 2022-06-03 15:50 | RAD_ITS ---
STUDY: X-RAY CHEST REASON FOR EXAM: Male, 57 years old. chest pain TECHNIQUE: 1 view COMPARISON: 05/27/2022 FINDINGS: Cardiomediastinal silhouette is unremarkable. Costophrenic angles are sharp. Linear opacities are again noted in the left lung base, likely linear scars. Lungs otherwise clear.. The trachea is midline. There is no pneumothorax. Moderate size hiatal hernia noted. The bones are grossly intact. RAD/Chest 1 View (Portable) IMPRESSION: No acute cardiopulmonary process. Moderate-sized hiatal hernia. Electronically Signed: Yosvany Sales MD at 16:22 EDT ,
[2022-06-03] MEDS: Aspirin 81 MG TAB.CHEW 324 MG PO (15:57)
[2022-06-03 16:01] LABS: Prothrombin Time (Protime)PT. 12.5 SECONDS (11.7-14.9)
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
[2022-06-03 16:16] LABS: AST(SGOT) 16 U/L (15-37); Alanine Aminotransfer ALT/SGPT 22 U/L (16-61); Albumin, Serum 3.1 g/dL (3.2-5.0); Alkaline Phosphatase 60 U/L (45-117); Bilirubin, Direct 0.08 mg/dL (0.00-0.30); Globulin 4.2 g/dL (2.2-4.2); Protein, Total 7.3 g/dL (6.4-8.2)
[2022-06-03 16:25] LABS: D-Dimer Quantitative (DVT/PE) 0.94 FEU/ug/m (0.27-0.49)
[2022-06-03 16:35] LABS: Anion Gap 6 (5-15); BUN 12 mg/dL (7-18); BUN/Creat Ratio 12.3 RATIO (10-20); Calcium,Total 8.5 mg/dL (8.5-10.1); Chloride 111 mmol/L (98-107); Creatinine, Serum 0.97 mg/dL (0.70-1.30); EST Glomerular Filtration Rate 84 mL/min (>60); Est Glom Filt Rate - Afr Amer 101 mL/min (>60); Estimated Creatinine Clearance 79.33 ml/min; Glucose 112 mg/dL (74-106); Magnesium 2.6 mg/dL (1.6-2.6); Potassium 3.5 mmol/L (3.5-5.1); Sodium Level 142 mmol/L (136-145); Troponin-I HS (w/2H Reflex) 7 pg/mL (3.0-78.0)
--- NOTE | 2022-06-03 16:42 | CT_ITS ---
STUDY: CTA CHEST REASON FOR EXAM: Male, 57 years old. chest pain, sob, elevated dimer RADIATION DOSAGE (If Supplied By Facility): CTDIvol = ( 23.96 ) mGy, DLP = ( 454.69 ) mGycm TECHNIQUE: The examination was performed with the intravenous administration of IV 100mL Isovue-370. Post-processing of the angiographic images was performed, with multiplanar reformation and 3D reconstruction. Individualized dose optimization techniques were used for this CT. COMPARISON: None. FINDINGS: Tubes and lines: 1. No life-support noted. CTA: PULMONARY ARTERIES: There is normal configuration and contrast opacification of pulmonary outflow tract, main pulmonary arteries, segmental and intersegmental pulmonary arteries bilaterally without evidence of intraluminal filling defects. AORTIC ARCH: The aortic arch and descending aorta have normal configuration. No evidence of dissection or aneurysmal dilatation. HEART: Cardiac contour is normal. No evidence pericardial effusion. CT CHEST: LUNGS: [Mild atelectasis and groundglass infiltrate at the LEFT lung base,/LEFT lower lobe. Minimal atelectasis in the lingular segment LEFT upper lobe. Remaining lung zones are clear.. No mass. No consolidation. PLEURAL SPACES: Unremarkable, no effusion or pneumothorax.. MEDIASTINUM AND LYMPH NODES: No evidence of masses or adenopathy mediastinum and hilar regions. There is a prominent hiatal hernia with surrounding fat... BONES: Unremarkable ABDOMEN: Hiatal hernia. Cholelithiasis also noted. Other: None IMPRESSIONS: 1. No CTA evidence of pulmonary embolism. 2. No CTA evidence of aortic aneurysm or dissection 3. Normal CT appearance of the heart and pericardium. 4. Diffuse groundglass infiltrate LEFT involving the lower lobe, minimal atelectasis in the lingula of the LEFT upper lobe. 5. Hiatal hernia. 6. Cholelithiasis. Electronically Signed: Christophe Starks MD at 17:52 EDT , CT/CTA Chest W/WO Contrast IMPRESSION: undefined
[2022-06-03 17:10] VITALS: BP 143/76; PULSE 62; RESP 15; O2SAT 99
[2022-06-03 17:45] LABS: Reflex Troponin-HS? (from REC) Y
[2022-06-03 18:00] VITALS: BP 147/78; PULSE 67; RESP 19; O2SAT 98
[2022-06-03 18:37] LABS: Troponin-I HS 7 pg/mL (3.0-78.0)
[2022-06-03 19:00] VITALS: BP 138/90; PULSE 77; RESP 20; O2SAT 94
== END 2022-06-03 19:41 | disposition home or self-care (01) ==
PROVIDERS: Emergency Provider Emergency Medicine; PCP Nurse Practitioner Family; Visit Provider Emergency Medicine
DX: J98.4 Other disorders of lung (principal); K44.9 Diaphragmatic hernia without obstruction or gangrene; R07.9 Chest pain, unspecified
CPT/HCPCS: 71045; 71275; 80048; 80076; 82962; 83735; 84484; 85025; 85379; 85610; 93005; 99285; Q9967; A4216

== ENCOUNTER → 2022-06-10 | Outpatient (CLI) | payer MEDICARE, MEDICAID, SELFPAY ==
[2022-06-10 14:39] LABS: Absolute Lymphocyte Count 2.51 X10^3/uL (0.83-4.51); Basophil# 0.05 X10^3/uL; Basophil% 0.6 % (0-1); Eosinophil# 0.27 X10^3/uL; Eosinophils% 3.2 % (0-5); Hematocrit 40.4 % (40-54); Hemoglobin 13.1 g/dL (13.0-16.5); Lymphocyte # 2.51 X10^3/ul (0.83-4.51); Lymphocyte % 29.3 % (19-41); Mean Corp Hgb Conc 32.4 g/dL (32-36); Mean Corpuscular Hgb 27.9 pg (27.0-32.0); Mean Corpuscular Volume 86.1 fL (80-94); Mean Platelet Vol. 10.2 fl (6.2-12.0); Monocyte# 0.75 X10^3/uL; Monocyte% 8.8 % (0-10); NRBC Flagged by Analyzer 0 % (0-5); Neutrophil # 4.97 X10^3/uL (2.7-7.7); Neutrophil % 57.9 % (47-70); Platelet Count 340 K/mm3 (150-450); RBC Distribution Width CV 12.8 % (11.6-14.6); RBC Distribution Width SD 39.9 fl (35.1-43.9); Red Blood Count 4.69 M/mm3 (4.6-6.2); White Blood Count 8.6 K/mm3 (4.4-11.0)
[2022-06-10 14:53] LABS: BNP,B-Type NATRIURETIC PEPTIDE 36.6 pg/mL (0-100)
[2022-06-10 16:14] LABS: Anion Gap 5 (5-15); BUN 13 mg/dL (7-18); BUN/Creat Ratio 13.1 RATIO (10-20); Calcium,Total 8.9 mg/dL (8.5-10.1); Chloride 110 mmol/L (98-107); EST Glomerular Filtration Rate 82 mL/min (>60); Est Glom Filt Rate - Afr Amer 99 mL/min (>60); Glucose 79 mg/dL (74-106); Potassium 3.6 mmol/L (3.5-5.1); Sodium Level 142 mmol/L (136-145)
== END | disposition home or self-care (01) ==
LOC: LAB 14:15
PROVIDERS: PCP Nurse Practitioner Family; Referring Provider Nurse Practitioner Family; Visit Provider Nurse Practitioner Family
DX: R06.02 Shortness of breath (principal)
CPT/HCPCS: 36415; 80048; 83880; 85025

== ENCOUNTER 2022-06-22 15:33 | Emergency (ER) | payer MEDICARE, MEDICAID, SELFPAY ==
[2022-06-22] VITALS (9 sets, daily range): BP systolic 124–142; BP diastolic 83–98; PULSE 71–101; RESP 11–22; TEMP 36.6–36.8; O2SAT 96–99; BMI 26.1
[2022-06-22 16:48] LABS: Absolute Lymphocyte Count 2.49 X10^3/uL (0.83-4.51); Absolute Neutrophil Count 4.3 X10^3/uL (2.0-7.7); Basophil# 0.06 X10^3/uL; Basophil% 0.8 % (0-1); Eosinophil# 0.14 X10^3/uL; Eosinophils% 1.8 % (0-5); Hematocrit 41.1 % (40-54); Hemoglobin 13.2 g/dL (13.0-16.5); Lymphocyte # 2.49 X10^3/ul (0.83-4.51); Lymphocyte % 32.1 % (19-41); Mean Corp Hgb Conc 32.1 g/dL (32-36); Mean Corpuscular Hgb 27.7 pg (27.0-32.0); Mean Corpuscular Volume 86.3 fL (80-94); Monocyte# 0.74 X10^3/uL; Monocyte% 9.5 % (0-10); NRBC Flagged by Analyzer 0 % (0-5); Neutrophil # 4.29 X10^3/uL (2.7-7.7); Neutrophil % 55.4 % (47-70); Platelet Count 313 K/mm3 (150-450); RBC Distribution Width CV 12.8 % (11.6-14.6); Red Blood Count 4.76 M/mm3 (4.6-6.2); White Blood Count 7.8 K/mm3 (4.4-11.0)
--- NOTE | 2022-06-22 16:58 | RAD_ITS ---
EXAM: XR CHEST, 2 VIEWS CLINICAL INDICATION: chest pain TECHNIQUE: Frontal and lateral views of the chest. This report was created using [email or web address] report generation technology. COMPARISON: 06/03/2022 FINDINGS: LUNGS AND PLEURAL SPACES: Unremarkable. No consolidation or edema. No pneumothorax. No effusion. HEART: Unremarkable. Cardiac silhouette not enlarged. MEDIASTINUM: There is a hiatal hernia. BONES/JOINTS: Unremarkable. SOFT TISSUES: Unremarkable. RAD/Chest PA and Lateral IMPRESSION: No acute findings in the chest. No change from reference exam. Electronically Signed: Easton King MD at 17:40 EDT ,
--- NOTE | 2022-06-22 17:02 | RAD_ITS ---
EXAM: XR RIGHT SCAPULA COMPLETE CLINICAL INDICATION: fall, pain TECHNIQUE: Frontal and Y-view of the right scapula. This report was created using [employer] report generation technology. COMPARISON: None. FINDINGS: BONES/JOINTS: There is deformity of the scapula which is unchanged from the reference exam and may be from old trauma. No acute fractures are identified. Preservation of the joint space. No sclerotic or destructive changes observed. SOFT TISSUES: Unremarkable. No soft tissue swelling or gas. No radiopaque foreign body. RAD/Scapula IMPRESSION: Deformity of the scapula which is likely from old trauma. There are no acute abnormalities. Electronically Signed: Easton King MD at 17:42 EDT ,
[2022-06-22 17:12] LABS: Anion Gap 8 (5-15); BUN 17 mg/dL (7-18); BUN/Creat Ratio 17.1 RATIO (10-20); Calcium,Total 8.8 mg/dL (8.5-10.1); Chloride 107 mmol/L (98-107); EST Glomerular Filtration Rate 82 mL/min (>60); Est Glom Filt Rate - Afr Amer 99 mL/min (>60); Estimated Creatinine Clearance 76.95 ml/min; Glucose 94 mg/dL (74-106); Potassium 3.5 mmol/L (3.5-5.1); Sodium Level 142 mmol/L (136-145); Troponin-I HS (w/2H Reflex) 6 pg/mL (3.0-78.0)
[2022-06-22 18:45] LABS: Reflex Troponin-HS? (from REC) Y
[2022-06-22 19:57] LABS: Troponin-I HS 4 pg/mL (3.0-78.0)
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
== END 2022-06-22 21:15 | disposition home or self-care (01) ==
PROVIDERS: Emergency Provider Emergency Medicine; PCP Nurse Practitioner Family; Visit Provider Emergency Medicine
DX: R07.9 Chest pain, unspecified (principal); I10 Essential (primary) hypertension; J45.909 Unspecified asthma, uncomplicated
CPT/HCPCS: 71046; 73010; 80048; 84484; 85025; 93005; 99284; A4216

== ENCOUNTER 2022-07-08 11:52 | Emergency (ER) | payer MEDICARE, MEDICAID, SELFPAY ==
[2022-07-08 11:53] VITALS: BP 161/118; PULSE 97; RESP 15; TEMP 36.3; O2SAT 98; BMI 28.0
--- NOTE | 2022-07-08 12:32 | CT_ITS ---
STUDY: CT BRAIN WITHOUT CONTRAST REASON FOR EXAM: Male, 57 years old. Dizziness. Fall. RADIATION DOSAGE (If Supplied By Facility): CTDIvol = ( 47.06 ) mGy, DLP = ( 907.97 ) mGycm TECHNIQUE: Transaxial CT imaging of the brain was performed without administration of intravenous contrast material. Individualized dose optimization techniques were used for this CT. COMPARISON: Comparison is made with prior study dated 12/17/2021. FINDINGS: Normal soft tissue structures. Normal calvarium. There is mild cerebral atrophy with widening of the extra-axial spaces and ventricular dilatation. There are areas of decreased attenuation within the white matter tracts of the supratentorial brain, consistent with microvascular disease changes. Stable encephalomalacia in the right frontotemporal lobes. This is unchanged. Normal basal ganglia and thalami. Normal brainstem. Normal cerebellum. There is no intracranial hemorrhage. There are no findings of an acute ischemic infarction. Normal visualized paranasal sinuses. CT/Brain/Head without Contrast IMPRESSION: Chronic involutional changes of the brain. 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 Electronically Signed: Mike Kramer MD at 13:08 EDT ,
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
[2022-07-08] MEDS: 0.9% Normal Saline 1,000 ML 1000 ML IV (12:38)
[2022-07-08 12:43] LABS: Absolute Lymphocyte Count 1.48 X10^3/uL (0.83-4.51); Absolute Neutrophil Count 3.8 X10^3/uL (2.0-7.7); Basophil# 0.06 X10^3/uL; Basophil% 0.9 % (0-1); Eosinophil# 0.03 X10^3/uL; Eosinophils% 0.5 % (0-5); Hematocrit 46.6 % (40-54); Lymphocyte # 1.48 X10^3/ul (0.83-4.51); Lymphocyte % 22.4 % (19-41); Mean Corp Hgb Conc 32.2 g/dL (32-36); Mean Corpuscular Hgb 27.3 pg (27.0-32.0); Mean Corpuscular Volume 84.7 fL (80-94); Mean Platelet Vol. 10.8 fl (6.2-12.0); Monocyte# 1.19 X10^3/uL; NRBC Flagged by Analyzer 0 % (0-5); Neutrophil # 3.83 X10^3/uL (2.7-7.7); Neutrophil % 57.9 % (47-70); Platelet Count 244 K/mm3 (150-450); RBC Distribution Width CV 13.5 % (11.6-14.6); RBC Distribution Width SD 41.7 fl (35.1-43.9); White Blood Count 6.6 K/mm3 (4.4-11.0)
--- NOTE | 2022-07-08 13:04 | RAD_ITS ---
STUDY: X-RAY CHEST REASON FOR EXAM: Male, 57 years old. Chest pain. TECHNIQUE: PA and lateral views of the chest. COMPARISON: Comparison is made with prior study dated 06/22/2022. FINDINGS: EKG electrodes are seen. Stable mild degree of increased linear markings at the suggestive of left basilar scarring. There is no demonstrated pleural abnormality. Normal size heart. Normal mediastinum and jeremi. Normal visualized pulmonary arteries. Normal visualized aortic arch and descending thoracic aorta. There are diffuse degenerative changes of the visualized thoracic spine. There is deformity of the right scapula in keeping with the prior healed fracture. Dextroscoliosis. Normal visualized ribs, clavicles, and shoulders. Moderate to large hiatal hernia. RAD/Chest PA and Lateral IMPRESSION: Stable mild increased linear markings at the left lung base suggestive of scarring. Moderate to large hiatal hernia. Electronically Signed: Mike Kramer MD at 13:48 EDT ,
[2022-07-08 13:06] LABS: Anion Gap 7 (5-15); BUN 17 mg/dL (7-18); BUN/Creat Ratio 13.2 RATIO (10-20); Chloride 106 mmol/L (98-107); Creatinine, Serum 1.29 mg/dL (0.70-1.30); EST Glomerular Filtration Rate 61 mL/min (>60); Est Glom Filt Rate - Afr Amer 73 mL/min (>60); Estimated Creatinine Clearance 55.64 ml/min; Glucose 89 mg/dL (74-106); Potassium 3.8 mmol/L (3.5-5.1); Sodium Level 138 mmol/L (136-145); Troponin-I HS (w/2H Reflex) 8 pg/mL (3.0-78.0)
[2022-07-08 13:11] LABS: BNP,B-Type NATRIURETIC PEPTIDE 13.7 pg/mL (0-100)
[2022-07-08 13:55] VITALS: BP 142/110; PULSE 75; RESP 18; O2SAT 97
[2022-07-08 14:37] LABS: Reflex Troponin-HS? (from REC) Y
[2022-07-08 15:12] LABS: Troponin-I HS 7 pg/mL (3.0-78.0)
[2022-07-08 15:31] VITALS: BP 135/96; PULSE 80; RESP 12; O2SAT 96
== END 2022-07-08 15:31 | disposition home or self-care (01) ==
PROVIDERS: Nurse Practitioner; Emergency Provider Emergency Medicine; PCP Nurse Practitioner Family; Visit Provider Emergency Medicine
DX: R07.9 Chest pain, unspecified (principal); R55 Syncope and collapse; I10 Essential (primary) hypertension
CPT/HCPCS: 70450; 71046; 80048; 83880; 84484; 85025; 93005; 96360; 99283; J7030; A4216

== ENCOUNTER → 2022-08-08 | Outpatient (CLI) | payer MEDICARE, MEDICAID, SELFPAY ==
--- NOTE | 2022-08-08 07:01 | ECHOD_ITS ---
Reason For Study: CHEST PAIN Procedure This was a 2D Doppler, Color Flow transthoracic echocardiogram. Pt refused definity due to light headedness. Exam performed in department. Left Ventricle Normal LV size. Left ventricular systolic function is normal. The estimated ejection fraction is 60 %. No regional wall motion abnormalities noted. Right Ventricle Normal RV size. Normal systolic function. Atria Normal left atrium. Normal right atrium. Mitral Valve Normal mitral valve. Tricuspid Valve Normal tricuspid valve. Aortic Valve Trisinus/trileaflet aortic valve. Pulmonic Valve Normal pulmonic valve. Great Vessels Normal aortic root. The pulmonary artery is normal size. Normal inferior vena cava. Pericardium/Pleural No pericardial effusion. MMode/2D Measurements & Calculations LVIDd: 4.5 cm IVSd: 1.1 cm Ao root diam: 3.4 cm LVIDs: 3.5 cm LVPWd: 1.4 cm RVDd: 2.9 cm FS: 22.1 % LAV(MOD-bp): 37.4 ml LVAd ap4: 28.3 cm2 SV(MOD-sp4): 35.3 ml LAV(MOD-bp) Indexed: 19.9 ml/m2 LVLd ap4: 8.3 cm LAV(MOD-sp2): 27.3 ml EDV(MOD-sp4): 80.1 ml LAV(MOD-sp4): 45.9 ml EDV(sp4-el): 81.9 ml LVAs ap4: 19.0 cm2 LVLs ap4: 6.7 cm ESV(MOD-sp4): 44.8 ml ESV(sp4-el): 45.5 ml EF(MOD-sp4): 44.1 % EF(sp4-el): 44.4 % SV(sp4-el): 36.3 ml LA A4 area: 17.5 cm2 LA dimension(2D): 3.8 cm RA A4 area: 10.0 cm2 Time Measurements MV dec time: 0.23 sec Doppler Measurements & Calculations MV E max geo: 62.3 cm/sec Lat Peak E' Geo: 12.2 cm/sec Med Peak E' Geo: 4.2 cm/sec MV A max geo: 55.9 cm/sec E/E' lat: 5.1 E/E' med: 14.8 MV E/A: 1.1 MV V2 max: 73.3 cm/sec Ao V2 max: 102.9 cm/sec MV max P.1 mmHg MV dec slope: 274.8 cm/sec2 Ao max P.2 mmHg MV V2 mean: 47.9 cm/sec Ao V2 mean: 72.2 cm/sec MV mean P.0 mmHg Ao mean P.4 mmHg MV V2 VTI: 25.3 cm Ao V2 VTI: 20.5 cm LV V1 max: 87.5 cm/sec MR max geo: 399.9 cm/sec PA V2 max: 104.7 cm/sec LV V1 max P.1 mmHg MR max P.0 mmHg PA V2 mean: 69.1 cm/sec LV V1 mean P.7 mmHg LV V1 mean: 60.5 cm/sec LV V1 VTI: 17.5 cm TR max geo: 227.5 cm/sec TR max P.7 mmHg ECHO/Echo Complete Interpretation Summary Normal LV size. Left ventricular systolic function is normal. The estimated ejection fraction is 60 %. Structurally normal valves. Ordering Physician: Marshall Grissom Referring Physician: Marshall Grissom Performed By: Mone Howe RCS
--- NOTE | 2022-08-08 18:29 | STRESSREP ---
Stress Test Report Pharmacologic myocardial perfusion stress test. 57-year-old man with a history of chest pain. Stress protocol: Resting EKG demonstrates normal sinus rhythm with a rate of 73 bpm resting blood pressure is 144/90 mmHg. The patient initially started on a regular John protocol for total duration of 21 seconds. The test was terminated due to the patient being unable to walk on the treadmill and getting dizzy and it was changed to a pharmacologic stress test. 0.4 mg of regadenoson was infused per usual protocol followed by rapid intravenous saline flush injection continuous EKG monitoring was performed. Maximum heart rate attained was 87 bpm which was 54% of max impacted heart rate the maximum workload was 1 metabolic equivalent. At rest there were no ST or T wave changes noted to suggest abnormal flow reserve and at peak infusion nonspecific ST-T wave changes were noted we did not meet the criteria for ischemia. Myocardial perfusion protocol. 11.1 mCi of technetium 99m sestamibi was injected at rest. 0.4 mg of regadenoson was infused per usual protocol. At peak infusion 33.7 mCi of technetium 99m sestamibi was injected stress images were obtained stress and rest images were reconstructed in comparing the short axis vertical long and horizontal long axis. Gated images were also obtained to Perfusion SPECT analysis: Review of the stress images demonstrate normal uptake of tracer noted in all areas of the myocardium. The resting images similar demonstrate normal uptake of tracer noted in all areas of the myocardium. No areas of reversibility are noted to suggest ischemia and no previous infarct is noted. Gated SPECT analysis: The gated ejection fraction is noted to be 52%. Conclusion: Normal pharmacologic myocardial perfusion stress test. Preserved ejection fraction.
== END | disposition home or self-care (01) ==
PROVIDERS: PCP Nurse Practitioner Family; Referring Provider Internal Medicine Cardiovascular Disease; Visit Provider Internal Medicine Cardiovascular Disease
DX: R07.9 Chest pain, unspecified (principal)
CPT/HCPCS: 78452; 93017; 93306; A9500; A4216; J2785

== ENCOUNTER 2023-02-08 21:07 | Emergency (ER) | payer MEDICARE, MEDICAID, SELFPAY ==
[2023-02-08 21:08] VITALS: BP 139/77; PULSE 102; RESP 15; TEMP 36.5; O2SAT 100; BMI 26.4
--- NOTE | 2023-02-08 21:17 | EKG12_ITS ---
Test Reason : CP Blood Pressure : / mmHG Vent. Rate : 094 BPM Atrial Rate : 094 BPM P-R Int : 146 ms QRS Dur : 098 ms QT Int : 356 ms P-R-T Axes : 023 -31 008 degrees QTc Int : 445 ms Normal sinus rhythm Left axis deviation Voltage criteria for left ventricular hypertrophy Abnormal ECG Confirmed by LUZMARIA WOMACK, JUAN FRANCISCO ([id number]), restaurant expeditor LUISA HARE ([id number]) on 02/13/2023 11:38:09 AM Referred By: ERICK Confirmed By:JUAN FRANCISCO DUTTA MD
[2023-02-08 21:41] LABS: Absolute Lymphocyte Count 2.17 X10^3/uL (0.83-4.51); Absolute Neutrophil Count 6.4 X10^3/uL (2.0-7.7); Basophil# 0.05 X10^3/uL; Basophil% 0.5 % (0-1); Eosinophil# 0.07 X10^3/uL; Eosinophils% 0.7 % (0-5); Hematocrit 44.9 % (40-54); Hemoglobin 14.2 g/dL (13.0-16.5); Lymphocyte # 2.17 X10^3/ul (0.83-4.51); Lymphocyte % 22.9 % (19-41); Mean Corp Hgb Conc 31.6 g/dL (32-36); Mean Corpuscular Hgb 26.9 pg (27.0-32.0); Mean Platelet Vol. 10.5 fl (6.2-12.0); Monocyte# 0.78 X10^3/uL; Monocyte% 8.2 % (0-10); NRBC Flagged by Analyzer 0 % (0-5); Neutrophil # 6.37 X10^3/uL (2.7-7.7); Neutrophil % 67.4 % (47-70); Platelet Count 314 K/mm3 (150-450); RBC Distribution Width CV 12.9 % (11.6-14.6); RBC Distribution Width SD 39.7 fl (35.1-43.9); Red Blood Count 5.28 M/mm3 (4.6-6.2); White Blood Count 9.5 K/mm3 (4.4-11.0)
[2023-02-08 21:54] VITALS: O2SAT 98
--- NOTE | 2023-02-08 21:58 | CT_ITS ---
EXAM: CT ANGIOGRAPHY CHEST WITHOUT AND WITH INTRAVENOUS CONTRAST CLINICAL INDICATION: Palpitations, dyspnea and elevated D-dimer TECHNIQUE: Helically acquired angiography images were obtained of the chest without and with intravenous contrast. This CT exam was performed using one or more of the following dose reduction techniques: automated exposure control, adjustment of the mA and/or kV according to patient size, and/or use of iterative reconstruction technique. MIP reconstructed images were created and reviewed. CONTRAST: IV 100mL Isovue-370 RADIATION DOSE: CTDIvol = 10.41 mGy, DLP = 414.59 mGy-cm COMPARISON: June 03, 2022 FINDINGS: PULMONARY ARTERIES: Unremarkable. Normal in caliber. No evidence of pulmonary embolism. AORTA: Unremarkable. Normal in caliber. No evidence of dissection. GREAT VESSELS OF AORTIC ARCH: Unremarkable. Normal in caliber. No evidence of dissection. LUNGS AND PLEURAL SPACES: Moderately elevated left hemidiaphragm mild left basilar atelectasis. No convincing infiltrates. No mass. No pleural effusion or thickening. No pneumothorax. HEART: Unremarkable. Heart size is normal. No pericardial effusion. No significant coronary artery calcifications. MEDIASTINUM: Moderate hiatal hernia, herniated gastric fundus, no obstruction, and prominent posterior mediastinal herniated fat similar to prior exam. No mediastinal or hilar adenopathy. Esophagus is unremarkable. THYROID: Unremarkable. No thyroid lesions. BONES/JOINTS: Mild vacuum disc at multiple thoracic levels, mild spondylosis.. No suspicious lytic or blastic abnormality. GALLBLADDER AND BILE DUCTS: Partially contracted gallbladder, filled with small stones, similar to the prior exam. No inflammatory changes. PANCREAS: Most of the pancreas, the adrenals, upper poles of kidneys aren''t included and appear unremarkable. Moderate fluid in the subdiaphragmatic portion of the stomach. STOMACH AND BOWEL: Moderate stool in the mid colon. CT/CTA Chest W/WO Contrast IMPRESSION: 1. No aortic aneurysm or dissection or PE. No specific acute abnormality. 2. Similar findings compared to prior exam. Large hiatal hernia, prominent posterior mediastinal fat, elevated left hemidiaphragm, mild left basilar atelectasis. Cholelithiasis. Moderate stool in the mid colon. Electronically Signed: Irma Nesbitt MD at 23:49 EDT ,
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
[2023-02-08 22:02] LABS: Anion Gap 9 (5-15); BUN 21 mg/dL (7-18); BUN/Creat Ratio 16.7 RATIO (10-20); Calcium,Total 9.2 mg/dL (8.5-10.1); Chloride 101 mmol/L (98-107); Creatinine, Serum 1.26 mg/dL (0.70-1.30); EST Glomerular Filtration Rate 62 mL/min (>60); Est Glom Filt Rate - Afr Amer 75 mL/min (>60); Estimated Creatinine Clearance 61.07 ml/min; Glucose 128 mg/dL (74-106); Potassium 3.6 mmol/L (3.5-5.1); Sodium Level 135 mmol/L (136-145); Troponin-I HS (w/2H Reflex) 8 pg/mL (3.0-78.0)
[2023-02-08 23:23] VITALS: PULSE 80; O2SAT 96
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
[2023-02-09 00:10] VITALS: PULSE 86; RESP 19; O2SAT 96
== END 2023-02-09 00:11 | disposition home or self-care (01) ==
PROVIDERS: Emergency Provider Emergency Medicine; PCP Nurse Practitioner Family; Visit Provider Emergency Medicine
DX: R00.2 Palpitations (principal); K44.9 Diaphragmatic hernia without obstruction or gangrene; I10 Essential (primary) hypertension; R06.00 Dyspnea, unspecified; R79.89 Other specified abnormal findings of blood chemistry; K80.20 Calculus of gallbladder without cholecystitis without obstruction; R07.9 Chest pain, unspecified; J45.909 Unspecified asthma, uncomplicated; Z79.899 Other long term (current) drug therapy
CPT/HCPCS: 36415; 71275; 80048; 80053; 83735; 84100; 84484; 85025; 85379; 86140; 93005; 99284; Q9967; A4216

== ENCOUNTER → 2023-02-08 | Outpatient (CLI) | payer MEDICARE, MEDICAID, SELFPAY ==
[2023-02-08 17:45] LABS: Absolute Lymphocyte Count 2.01 X10^3/uL (0.83-4.51); Absolute Neutrophil Count 6.8 X10^3/uL (2.0-7.7); Basophil# 0.07 X10^3/uL; Basophil% 0.7 % (0-1); Eosinophil# 0.07 X10^3/uL; Eosinophils% 0.7 % (0-5); Hematocrit 45.3 % (40-54); Hemoglobin 14.1 g/dL (13.0-16.5); Lymphocyte # 2.01 X10^3/ul (0.83-4.51); Mean Corp Hgb Conc 31.1 g/dL (32-36); Mean Corpuscular Hgb 26.9 pg (27.0-32.0); Mean Corpuscular Volume 86.3 fL (80-94); Mean Platelet Vol. 10.8 fl (6.2-12.0); Monocyte# 1.03 X10^3/uL; Monocyte% 10.2 % (0-10); NRBC Flagged by Analyzer 0 % (0-5); Neutrophil # 6.83 X10^3/uL (2.7-7.7); Neutrophil % 67.9 % (47-70); Platelet Count 334 K/mm3 (150-450); RBC Distribution Width CV 12.7 % (11.6-14.6); RBC Distribution Width SD 39.5 fl (35.1-43.9); Red Blood Count 5.25 M/mm3 (4.6-6.2); White Blood Count 10.1 K/mm3 (4.4-11.0)
[2023-02-08 18:33] LABS: ALB/GLOB Ratio 0.9 RATIO (0.9-2.4); AST(SGOT) 23 U/L (15-37); Alanine Aminotransfer ALT/SGPT 27 U/L (16-61); Albumin, Serum 3.7 g/dL (3.2-5.0); Alkaline Phosphatase 64 U/L (45-117); Anion Gap 4 (5-15); BUN 21 mg/dL (7-18); BUN/Creat Ratio 16.9 RATIO (10-20); CRP 3.41 mg/L (0.0-3.0); Chloride 103 mmol/L (98-107); Creatinine, Serum 1.24 mg/dL (0.70-1.30); EST Glomerular Filtration Rate 63 mL/min (>60); Est Glom Filt Rate - Afr Amer 77 mL/min (>60); Globulin 4.3 g/dL (2.2-4.2); Glucose 94 mg/dL (74-106); Magnesium 2.5 mg/dL (1.6-2.6); Phosphorus 2.1 mg/dL (2.5-4.9); Potassium 4.1 mmol/L (3.5-5.1); Sodium Level 133 mmol/L (136-145); Troponin-I HS 5 pg/mL (3.0-78.0)
[2023-02-08 19:06] LABS: D-Dimer Quantitative (DVT/PE) 1.08 FEU/ug/m (0.27-0.49)
== END | disposition home or self-care (01) ==
PROVIDERS: PCP Nurse Practitioner Family; Referring Provider Nurse Practitioner Family; Visit Provider Nurse Practitioner Family
DX: I10 Essential (primary) hypertension (principal); R07.9 Chest pain, unspecified
CPT/HCPCS: 36415; 80053; 83735; 84100; 84484; 85025; 85379; 86140

== ENCOUNTER 2023-04-14 10:40 | Emergency (ER) | payer MEDICARE, MEDICAID, SELFPAY ==
[2023-04-14 10:41] VITALS: BP 142/89; PULSE 76; RESP 14; TEMP 37; O2SAT 100; BMI 26.2
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
--- NOTE | 2023-04-14 11:27 | RAD_ITS ---
STUDY: X-RAY - RIGHT ELBOW REASON FOR EXAM: Male, 58 years old. Elbow pain following a recent fall TECHNIQUE: 3 view(s) of the elbow. COMPARISON: None. FINDINGS: Normal visualized humerus, radius and ulna. Normal radiocapitellar and ulnotrochlear articulations. The soft tissue structures are unremarkable. RAD/Elbow min 3 Views IMPRESSION: Normal x-ray examination of the elbow. Electronically Signed: Mike Kramer MD at 11:49 EDT ,
--- NOTE | 2023-04-14 11:27 | RAD_ITS ---
STUDY: X-RAY - LEFT KNEE REASON FOR EXAM: Male, 58 years old. Knee pain following a recent fall. TECHNIQUE: 2 view(s) of the knee. COMPARISON: None. FINDINGS: Normal visualized distal femur. Normal visualized proximal tibia and fibula. Normal proximal tibiofibular articulation. Normal medial femorotibial compartment. Normal lateral femorotibial compartment. Normal patellofemoral articulation. The soft tissue structures are unremarkable. RAD/Knee 1 or 2 Views IMPRESSION: Normal x-ray examination of the knee. Electronically Signed: Mike Kramer MD at 11:48 EDT ,
== END 2023-04-14 12:42 | disposition home or self-care (01) ==
PROVIDERS: Emergency Provider Emergency Medicine; PCP Nurse Practitioner Family; Visit Provider Emergency Medicine
DX: S80.02XA Contusion of left knee, initial encounter (principal); S50.00XA Contusion of unspecified elbow, initial encounter; W19.XXXA Unspecified fall, initial encounter
CPT/HCPCS: 73080; 73560; 99283

== ENCOUNTER 2023-06-16 10:54 | Emergency (ER) | payer MEDICARE, MEDICAID, SELFPAY ==
[2023-06-16 10:55] VITALS: BP 91/72; PULSE 100; RESP 18; TEMP 36.4; O2SAT 99; BMI 26.5
--- NOTE | 2023-06-16 11:12 | CT_ITS ---
STUDY: CT BRAIN WITHOUT CONTRAST REASON FOR EXAM: Male, 58 years old. syncope, [place] RADIATION DOSAGE (If Supplied By Facility): CTDIvol = ( 44.99 ) mGy, DLP = ( 812.98 ) mGycm TECHNIQUE: Transaxial CT imaging of the brain was performed without administration of intravenous contrast material. Individualized dose optimization techniques were used for this CT. COMPARISON: Comparison is made with prior study July 08, 2022. FINDINGS: Normal soft tissue structures. Normal calvarium. There is mild cerebral atrophy with widening of the extra-axial spaces and ventricular dilatation. There are areas of decreased attenuation within the white matter tracts of the supratentorial brain, consistent with microvascular disease changes. Stable focal subluxation the right temporal frontal lobe. Normal basal ganglia and thalami. Normal brainstem. Normal cerebellum. There is no intracranial hemorrhage. There are no findings of an acute ischemic infarction. Normal visualized paranasal sinuses. Nasal septal deviation toward the left side of the midline. CT/Brain/Head without Contrast IMPRESSION: Chronic involutional changes of the brain. Stable focal encephalomalacia in the right frontal temporal lobe. Electronically Signed: Mike Kramer MD at 12:33 EDT ,
--- NOTE | 2023-06-16 11:12 | EKG12_ITS ---
Test Reason : CHST PAINS Blood Pressure : / mmHG Vent. Rate : 082 BPM Atrial Rate : 082 BPM P-R Int : 150 ms QRS Dur : 088 ms QT Int : 364 ms P-R-T Axes : 014 -24 008 degrees QTc Int : 425 ms Normal sinus rhythm Minimal voltage criteria for LVH, may be normal variant ( R in aVL ) Borderline ECG When compared with ECG of 08-FEB-2023 21:19, No significant change was found Confirmed by LUZMARIA WOMACK, JUAN FRANCISCO ([id number]), newspaper or periodical editor RITU BILLY ([id number]) on 06/21/2023 10:19:39 AM Referred By: JORGE A Confirmed By:JUAN FRANCISCO DUTTA MD
[2023-06-16 11:33] LABS: Absolute Lymphocyte Count 2.32 X10^3/uL (0.83-4.51); Absolute Neutrophil Count 6.7 X10^3/uL (2.0-7.7); Basophil# 0.03 X10^3/uL; Basophil% 0.3 % (0-1); Eosinophil# 0.15 X10^3/uL; Eosinophils% 1.4 % (0-5); Hematocrit 41.2 % (40-54); Hemoglobin 13.1 g/dL (13.0-16.5); Lymphocyte # 2.32 X10^3/ul (0.83-4.51); Lymphocyte % 22.3 % (19-41); Mean Corp Hgb Conc 31.8 g/dL (32-36); Mean Corpuscular Hgb 27.6 pg (27.0-32.0); Mean Corpuscular Volume 86.9 fL (80-94); Mean Platelet Vol. 10.4 fl (6.2-12.0); Monocyte# 1.12 X10^3/uL; Monocyte% 10.8 % (0-10); NRBC Flagged by Analyzer 0 % (0-5); Neutrophil # 6.73 X10^3/uL (2.7-7.7); Neutrophil % 64.8 % (47-70); Platelet Count 241 K/mm3 (150-450); RBC Distribution Width CV 13.3 % (11.6-14.6); RBC Distribution Width SD 42.2 fl (35.1-43.9); Red Blood Count 4.74 M/mm3 (4.6-6.2); White Blood Count 10.4 K/mm3 (4.4-11.0)
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
[2023-06-16 11:46] LABS: BNP,B-Type NATRIURETIC PEPTIDE 4.3 pg/mL (0-100)
[2023-06-16 11:51] LABS: ALB/GLOB Ratio 0.8 RATIO (0.9-2.4); AST(SGOT) 12 U/L (15-37); Alanine Aminotransfer ALT/SGPT 15 U/L (16-61); Albumin, Serum 3.2 g/dL (3.2-5.0); Alkaline Phosphatase 52 U/L (45-117); Anion Gap 3 (5-15); BUN 24 mg/dL (7-18); BUN/Creat Ratio 15.1 RATIO (10-20); Calcium,Total 8.7 mg/dL (8.5-10.1); Chloride 107 mmol/L (98-107); Creatinine, Serum 1.59 mg/dL (0.70-1.30); EST Glomerular Filtration Rate 47 mL/min (>60); Est Glom Filt Rate - Afr Amer 57 mL/min (>60); Globulin 3.9 g/dL (2.2-4.2); Glucose 107 mg/dL (74-106); Lipase 47 U/L (13-75); Potassium 3.4 mmol/L (3.5-5.1); Protein, Total 7.1 g/dL (6.4-8.2); Sodium Level 137 mmol/L (136-145); Troponin-I HS 4 pg/mL (3.0-78.0)
[2023-06-16 12:07] VITALS: BP 112/72; PULSE 87; RESP 14; O2SAT 99
[2023-06-16] MEDS: 0.9% Normal Saline (1000mL) 1,000 ML 1000 ML IV (12:21)
[2023-06-16] MEDS: Metoclopramide 10 MG/2 ML Vial IV (12:21)
[2023-06-16] MEDS: Acetaminophen 325 MG Tablet 650 MG PO (12:21)
--- NOTE | 2023-06-16 13:10 | RAD_ITS ---
STUDY: X-RAY CHEST REASON FOR EXAM: Male, 58 years old. Syncope TECHNIQUE: Single AP portable view of the chest. COMPARISON: Comparison is made with prior study dated July 08, 2022. FINDINGS: EKG electrodes are seen. Increased markings at the left lung base with areas of the confluence suggestive of chronic scarring with superimposed left basilar atelectasis. There is no demonstrated pleural abnormality. Normal size heart. Normal mediastinum and jeremi. Normal visualized pulmonary arteries. Normal visualized aortic arch and descending thoracic aorta. Normal visualized thoracic spine. Deformity of the right scapula suggestive of old fracture. Hiatal hernia. RAD/Chest PA and Lateral IMPRESSION: Slight increase in the linear markings at the left lung base suggestive of atelectasis superimposed on scarring. Hiatal hernia. Electronically Signed: Mike Kramer MD at 13:43 EDT ,
[2023-06-16 13:24] VITALS: BP 118/74; PULSE 86; RESP 16; O2SAT 99
[2023-06-16] MEDS: 0.9% Normal Saline (1000mL) 1,000 ML 999 ML IV (13:26)
[2023-06-16] MEDS: Na Biphos/Potassium Phosphate PACKET 1 PACKET PO (13:26)
[2023-06-16 16:16] VITALS: BP 100/62; PULSE 81; RESP 16; O2SAT 99
== END 2023-06-16 16:19 | disposition home or self-care (01) ==
PROVIDERS: Emergency Provider Emergency Medicine; PCP Nurse Practitioner Family; Visit Provider Emergency Medicine
DX: R42 Dizziness and giddiness (principal); R55 Syncope and collapse; E86.0 Dehydration; E87.6 Hypokalemia
CPT/HCPCS: 70450; 71046; 80053; 83690; 83880; 84484; 85025; 93005; 96374; 99285; J7030; A4216

== ENCOUNTER 2023-09-23 17:42 | Emergency (ER) | payer MEDICARE, MEDICAID, SELFPAY ==
[2023-09-23 17:43] VITALS: BP 122/86; PULSE 124; RESP 16; TEMP 36.4; O2SAT 95
--- NOTE | 2023-09-23 17:56 | EKG12_ITS ---
Test Reason : CHEST PAIN Blood Pressure : / mmHG Vent. Rate : 105 BPM Atrial Rate : 105 BPM P-R Int : 148 ms QRS Dur : 086 ms QT Int : 344 ms P-R-T Axes : 029 -29 028 degrees QTc Int : 454 ms Sinus tachycardia Otherwise normal ECG Confirmed by LUZMARIA WOMACK, JUAN FRANCISCO ([id number]), television news video editor AUDREY PEPPER ([id number]) on 10/03/2023 9:05:20 AM Referred By: Confirmed By:JUAN FRANCISCO DUTTA MD
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
--- NOTE | 2023-09-23 18:20 | RAD_ITS ---
STUDY: X-RAY CHEST REASON FOR EXAM: Male, 58 years old. chest pain TECHNIQUE: Single AP portable view of the chest. COMPARISON: 06/16/2023 FINDINGS: EKG leads project over the chest. The lungs are clear and expanded. There is no demonstrated pleural abnormality. Normal size heart. Normal mediastinum and jeremi. Normal visualized pulmonary arteries. Normal visualized aortic arch and descending thoracic aorta. Normal visualized thoracic spine. Normal visualized ribs, clavicles, and shoulders. Large hiatal hernia. RAD/Chest 1 View (Portable) IMPRESSION: Stable, nonacute portable x-ray examination of the chest. Electronically Signed: Mickey Mota MD ([place]) at 18:39 EST ,
[2023-09-23 18:27] LABS: Absolute Neutrophil Count 7.4 X10^3/uL (2.0-7.7); Basophil% 0.9 % (0-1); Eosinophils% 1.7 % (0-5); Hematocrit 41.7 % (40-54); Hemoglobin 13.2 g/dL (13.0-16.5); Lymphocyte % 22.7 % (19-41); Mean Corp Hgb Conc 31.7 g/dL (32-36); Mean Corpuscular Hgb 27.2 pg (27.0-32.0); Mean Corpuscular Volume 85.8 fL (80-94); Mean Platelet Vol. 10.9 fl (6.2-12.0); Monocyte# 1.15 X10^3/uL; NRBC Flagged by Analyzer 0 % (0-5); Neutrophil # 7.37 X10^3/uL (2.7-7.7); Neutrophil % 64.4 % (47-70); Platelet Count 298 K/mm3 (150-450); RBC Distribution Width SD 40.5 fl (35.1-43.9); Red Blood Count 4.86 M/mm3 (4.6-6.2); White Blood Count 11.5 K/mm3 (4.4-11.0)
--- NOTE | 2023-09-23 18:37 | CT_ITS ---
STUDY: CTA CHEST REASON FOR EXAM: Male, 58 years old. chest pain RADIATION DOSAGE (If Supplied By Facility): CTDIvol = ( 10.8 ) mGy, DLP = ( 418.02 ) mGycm TECHNIQUE: The examination was performed with the intravenous administration of IV 100mL [id number]-370. Post-processing of the angiographic images was performed, with multiplanar reformation and 3D reconstruction. Individualized dose optimization techniques were used for this CT. COMPARISON: 02/08/2023 FINDINGS: Normal enhancement of the main pulmonary artery and right and left pulmonary arteries. Normal enhancement of the bilateral peripheral pulmonary arteries. There is no demonstrated pulmonary embolism. Normal thoracic aorta and visualized great vessels. There is no demonstrated aortic dissection. Normal heart and pericardium. Normal mediastinum. Normal hilar regions. Normal visualized trachea and bronchi. The lungs are well expanded. 4.5 mm nodule in the left lower lobe is stable. Normal pleura. Normal chest wall structures. There are degenerative changes of thoracic spine. Stable hiatal hernia. Gallstones. CT/CTA Chest W/WO Contrast IMPRESSION: 1. No central or segmental pulmonary embolism. 2. Stable chronic changes, as above. Electronically Signed: Mickey Mota MD ([place]) at 19:47 EST Reading Location ID and State: [facility] / [place] , Service support ,
[2023-09-23 18:40] LABS: Anion Gap 3 (5-15); BUN 20 mg/dL (7-18); BUN/Creat Ratio 17.5 RATIO (10-20); Calcium,Total 9.8 mg/dL (8.5-10.1); Chloride 107 mmol/L (98-107); Creatinine, Serum 1.14 mg/dL (0.70-1.30); EST Glomerular Filtration Rate 70 mL/min (>60); Est Glom Filt Rate - Afr Amer 84 mL/min (>60); Glucose 108 mg/dL (74-106); Potassium 3.7 mmol/L (3.5-5.1); Sodium Level 137 mmol/L (136-145); Troponin-I HS 8 pg/mL (3.0-78.0)
[2023-09-23] MEDS: 0.9% Normal Saline (1000mL) 1,000 ML 999 ML IV (19:00)
[2023-09-23 19:33] VITALS: BP 135/82; PULSE 90; RESP 18; O2SAT 100; BMI 27.4
[2023-09-23 21:04] VITALS: BP 120/78; PULSE 93; RESP 14; O2SAT 94
== END 2023-09-23 21:06 | disposition home or self-care (01) ==
PROVIDERS: Emergency Provider Student in an Organized Health Care Education/Training Program; PCP Nurse Practitioner Family; Visit Provider Student in an Organized Health Care Education/Training Program
DX: R07.9 Chest pain, unspecified (principal); I10 Essential (primary) hypertension; J45.909 Unspecified asthma, uncomplicated; Z79.82 Long term (current) use of aspirin; Z79.899 Other long term (current) drug therapy
CPT/HCPCS: 71045; 71275; 80048; 84484; 85025; 85379; 93005; 99284; J7030; Q9967; A4216

== ENCOUNTER 2024-02-25 08:34 | Emergency (ER) | payer MEDICARE, MEDICAID, SELFPAY ==
[2024-02-25 08:35] VITALS: BP 148/108; PULSE 72; RESP 17; TEMP 36.3; O2SAT 99; BMI 27.1
--- NOTE | 2024-02-25 09:02 | EKG12_ITS ---
Test Reason : CP Blood Pressure : / mmHG Vent. Rate : 079 BPM Atrial Rate : 079 BPM P-R Int : 148 ms QRS Dur : 090 ms QT Int : 404 ms P-R-T Axes : 032 -15 002 degrees QTc Int : 463 ms Normal sinus rhythm Minimal voltage criteria for LVH, may be normal variant ( R in aVL ) Borderline ECG Confirmed by BINA WOMACK, GIA ([id number]), technical writer and editor LUISA HARE ([id number]) on 02/29/2024 6:13:08 AM Referred By: KARIME Confirmed By:CHRISTOPHER CURRAN MD
--- NOTE | 2024-02-25 09:02 | RAD_ITS ---
STUDY: X-RAY CHEST REASON FOR EXAM: Male, 58 years old. chest pain TECHNIQUE: PA and lateral views of the chest. COMPARISON: 09/23/2023 FINDINGS: Lungs are mildly hyperexpanded with chronic interstitial changes, no superimposed infiltrate or effusion. Normal size heart. Normal mediastinum and jeremi. Normal visualized pulmonary arteries. Normal visualized aortic arch and descending thoracic aorta. There are diffuse degenerative changes of the visualized thoracic spine. Old healed right scapular fracture. There is no demonstrated abnormality of the visualized soft tissue structures of the upper abdomen. Previously noted retrocardiac hiatal hernia not appreciated on current study RAD/Chest PA and Lateral IMPRESSION: Hyperexpanded lungs, with chronic interstitial changes but no superimposed pulmonary process Electronically Signed: Tremaine Burns MD at 10:34 EDT ,
--- NOTE | 2024-02-25 09:13 | CT_ITS ---
STUDY: CT BRAIN WITHOUT CONTRAST REASON FOR EXAM: Male, 58 years old. Headache after a fall RADIATION DOSAGE (If Supplied By Facility): CTDIvol = ( 44.99 ) mGy, DLP = ( 829.85 ) mGycm TECHNIQUE: Transaxial CT imaging of the brain was performed without administration of intravenous contrast material. Individualized dose optimization techniques were used for this CT. COMPARISON: 06/16/2023 FINDINGS: Normal soft tissue structures. Normal calvarium. There is mild cerebral atrophy with widening of the extra-axial spaces and ventricular dilatation. There are areas of decreased attenuation within the white matter tracts of the supratentorial brain, consistent with microvascular disease changes. Normal basal ganglia and thalami. Normal brainstem. Normal cerebellum. There is no intracranial hemorrhage. Remote temporal lobe infarct. Normal visualized paranasal sinuses. CT/Brain/Head without Contrast IMPRESSION: Chronic involutional changes of the brain, no acute hemorrhage. No skull fracture or scalp hematoma Remote right temporal lobe infarct Electronically Signed: Tremaine Burns MD at 10:26 EDT ,
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
[2024-02-25 09:39] LABS: Absolute Lymphocyte Count 1.88 X10^3/uL (0.83-4.51); Absolute Neutrophil Count 4.2 X10^3/uL (2.0-7.7); Basophil# 0.04 X10^3/uL; Basophil% 0.6 % (0-1); Eosinophil# 0.15 X10^3/uL; Eosinophils% 2.2 % (0-5); Hematocrit 39.7 % (40-54); Hemoglobin 12.2 g/dL (13.0-16.5); Lymphocyte # 1.88 X10^3/ul (0.83-4.51); Lymphocyte % 27.4 % (19-41); Mean Corp Hgb Conc 30.7 g/dL (32-36); Mean Corpuscular Hgb 25.9 pg (27.0-32.0); Mean Corpuscular Volume 84.3 fL (80-94); Mean Platelet Vol. 10.3 fl (6.2-12.0); Monocyte# 0.62 X10^3/uL; NRBC Flagged by Analyzer 0 % (0-5); Neutrophil # 4.15 X10^3/uL (2.7-7.7); Neutrophil % 60.5 % (47-70); Platelet Count 293 K/mm3 (150-450); RBC Distribution Width CV 13.8 % (11.6-14.6); RBC Distribution Width SD 42.5 fl (35.1-43.9); Red Blood Count 4.71 M/mm3 (4.6-6.2); White Blood Count 6.9 K/mm3 (4.4-11.0)
[2024-02-25 10:01] LABS: Anion Gap 8 (5-15); BUN 15 mg/dL (7-18); Calcium,Total 8.3 mg/dL (8.5-10.1); Chloride 111 mmol/L (98-107); Creatinine, Serum 0.94 mg/dL (0.70-1.30); EST Glomerular Filtration Rate 87 mL/min (>60); Est Glom Filt Rate - Afr Amer 105 mL/min (>60); Estimated Creatinine Clearance 80.85 ml/min; Glucose 106 mg/dL (74-106); Potassium 3.6 mmol/L (3.5-5.1); Sodium Level 143 mmol/L (136-145); Troponin-I HS 7 pg/mL (3.0-78.0)
[2024-02-25 10:34] VITALS: BP 137/56; PULSE 61; RESP 16; O2SAT 97
[2024-02-25 12:00] VITALS: BP 161/98; PULSE 54; RESP 15
[2024-02-25 12:56] VITALS: BP 147/68; PULSE 66; RESP 14; TEMP 36.6; O2SAT 98
== END 2024-02-25 12:57 | disposition home or self-care (01) ==
PROVIDERS: Emergency Provider Emergency Medicine; PCP Nurse Practitioner Family; Visit Provider Emergency Medicine
DX: S54.21XA Injury of radial nerve at forearm level, right arm, initial encounter (principal); R07.9 Chest pain, unspecified; J45.909 Unspecified asthma, uncomplicated; Z79.82 Long term (current) use of aspirin; X58.XXXA Exposure to other specified factors, initial encounter
CPT/HCPCS: 70450; 71046; 80048; 84484; 85025; 93005; 99284; A4216

== ENCOUNTER 2024-08-15 14:48 | Emergency (ER) | payer MEDICARE, MEDICAID, SELFPAY ==
[2024-08-15 14:49] VITALS: BP 138/98; PULSE 97; RESP 20; TEMP 36.6; O2SAT 100
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
[2024-08-15 15:40] VITALS: O2SAT 98
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
[2024-08-15 16:21] VITALS: BP 150/79; PULSE 79; RESP 16; TEMP 36.6; O2SAT 100
== END 2024-08-15 16:22 | disposition home or self-care (01) ==
PROVIDERS: Emergency Provider Emergency Medicine; PCP Nurse Practitioner Family; Visit Provider Emergency Medicine
DX: S09.90XA Unspecified injury of head, initial encounter (principal); I42.8 Other cardiomyopathies; R55 Syncope and collapse; Y00.XXXA Assault by blunt object, initial encounter; I10 Essential (primary) hypertension; Y92.009 Unspecified place in unspecified non-institutional (private) residence as the place of occurrence of the external cause; J45.909 Unspecified asthma, uncomplicated; Z87.19 Personal history of other diseases of the digestive system; Z79.82 Long term (current) use of aspirin; Z79.899 Other long term (current) drug therapy
CPT/HCPCS: 70450; 99282

== ENCOUNTER 2024-11-11 12:18 | Emergency (ER) | payer MEDICARE, MEDICAID, SELFPAY ==
[2024-11-11 12:19] VITALS: BP 154/78; PULSE 78; RESP 16; TEMP 36.9; O2SAT 98; BMI 28.6
--- NOTE | 2024-11-11 13:22 | CT_ITS ---
PROCEDURE: ABDOMEN/PELVIS W IV CONT ONLY REASON FOR EXAM: Right-sided rib pain following cough. History of flu. Chronic cholecystitis. TECHNIQUE: Abdomen and pelvis CT with intravenous contrast. IV CONTRAST: 100 cc of Isovue 300. COMPARISON: None. FINDINGS: Lung bases: Minimal increased markings at the lung bases suggestive of atelectasis and/or scarring. Liver: Diffuse fatty infiltration. Gallbladder: Multiple small gallstones. Spleen: Unremarkable. Pancreas: Unremarkable. Adrenals: Unremarkable. Kidneys: Unremarkable. Bladder: Unremarkable. Reproductive Organs: Unremarkable. Bowel: Colonic diverticulosis without diverticulitis. Large hiatal hernia. Appendix: The appendix is not identified. There is no inflammatory process identified in the right lower quadrant to suggest appendicitis. Lymph nodes: No suspicious lymph node enlargement. Vasculature: Mild diffuse atherosclerotic calcifications are noted. Peritoneum / Retroperitoneum: No ascites. No free air. Bones: Degenerative changes of the spine. CT/Abdomen/Pelvis W IV Cont ONLY IMPRESSION: Multiple gallstones. Large hiatal hernia. Fatty infiltration of the liver. One or more dose reduction techniques were used (e.g., Automated exposure contr ol, adjustment of the mA and/or kV according to patient size, use of iterative reconstruction technique). Reading Location: [facility]
--- NOTE | 2024-11-11 13:22 | CT_ITS ---
PROCEDURE: CHEST WITHOUT CONTRAST REASON FOR EXAM: History of the flu. Right-sided rib pain following cough. TECHNIQUE: Chest CT without contrast. COMPARISON: None. FINDINGS: Hardware: None. Lymph nodes: No mediastinal hilar or axillary lymphadenopathy. Heart and Vasculature: Normal heart size. No pericardial effusion. Thoracic aorta and pulmonary arteries have normal contours; noncontrast technique limits evaluation. Coronary Artery Calcifications: Lungs and Airways: Findings suggestive of scarring with bronchiectasis in both lower lobes more prominent on the left lung base. No focal infiltrate is seen. Pleura: No pleural effusion. No pneumothorax. Upper Abdomen: Large hiatal hernia. Bones: Degenerative changes of the thoracic spine. Loss of height of lower dorsal vertebrae. No rib fracture seen. CT/Chest without Contrast IMPRESSION: Scarring at both lung bases worse on the left lung base with bronchiectasis. Large hiatal hernia. One or more dose reduction techniques were used (e.g., Automated exposure contr ol, adjustment of the mA and/or kV according to patient size, use of iterative reconstruction technique). Reading Location: [place] [id number]
--- NOTE | 2024-11-11 13:25 | EKG12_ITS ---
Test Reason : GENERAL Blood Pressure : */* mmHG Vent. Rate : 81 BPM Atrial Rate : 81 BPM P-R Int : 150 ms QRS Dur : 88 ms QT Int : 406 ms P-R-T Axes : 39 -17 -5 degrees QTcB Int : 471 ms Normal sinus rhythm Minimal voltage criteria for LVH, may be normal variant ( R in aVL ) Borderline ECG Confirmed by Mike Unger ([id number]), acquisition editor LUISA HARE ([id number]) on 11/12/2024 10:03:49 AM Referred By: Confirmed By: Mike Unger
[2024-11-11] MEDS: Morphine 2 MG/ML Syringe IV (13:34)
[2024-11-11] MEDS: Ondansetron 4 MG/2 ML Vial IV (13:34)
[2024-11-11] MEDS: 0.9% Normal Saline (500mL Bag) 500 ML 1000 ML IV (13:34)
[2024-11-11 13:42] LABS: Absolute Lymphocyte Count 1.58 X10^3/uL (0.83-4.51); Absolute Neutrophil Count 2.3 X10^3/uL (2.0-7.7); Basophil# 0.03 X10^3/uL; Basophil% 0.7 % (0-1); Eosinophil# 0.07 X10^3/uL; Eosinophils% 1.6 % (0-5); Hematocrit 34.7 % (40-54); Hemoglobin 10.3 g/dL (13.0-16.5); Lymphocyte # 1.58 X10^3/ul (0.83-4.51); Lymphocyte % 35.6 % (19-41); Mean Corp Hgb Conc 29.7 g/dL (32-36); Mean Corpuscular Hgb 21.8 pg (27.0-32.0); Mean Corpuscular Volume 73.5 fL (80-94); Mean Platelet Vol. 10.6 fl (6.2-12.0); Monocyte# 0.43 X10^3/uL; Monocyte% 9.7 % (0-10); NRBC Flagged by Analyzer 0 % (0-5); Neutrophil # 2.31 X10^3/uL (2.7-7.7); Neutrophil % 51.9 % (47-70); Platelet Count 281 K/mm3 (150-450); RBC Distribution Width CV 15.9 % (11.6-14.6); RBC Distribution Width SD 41.7 fl (35.1-43.9); Red Blood Count 4.72 M/mm3 (4.6-6.2); White Blood Count 4.4 K/mm3 (4.4-11.0)
[2024-11-11 14:01] LABS: Anion Gap 6 (5-15); BUN 15 mg/dL (7-18); BUN/Creat Ratio 14.3 RATIO (10-20); Calcium,Total 8.6 mg/dL (8.5-10.1); Chloride 108 mmol/L (98-107); Creatinine, Serum 1.05 mg/dL (0.70-1.30); EST Glomerular Filtration Rate 76 mL/min (>60); Est Glom Filt Rate - Afr Amer 92 mL/min (>60); Estimated Creatinine Clearance 78.61 ml/min; Glucose 92 mg/dL (74-106); Potassium 3.1 mmol/L (3.5-5.1); Sodium Level 140 mmol/L (136-145)
[2024-11-11 14:19] VITALS: BP 147/69
[2024-11-11 14:46] LABS: Troponin-I HS 10 pg/mL (3.0-78.0)
[2024-11-11 15:50] LABS: AST(SGOT) 26 U/L (15-37); Alanine Aminotransfer ALT/SGPT 23 U/L (16-61); Alkaline Phosphatase 49 U/L (45-117); Bilirubin, Direct 0.09 mg/dL (0.00-0.30)
[2024-11-11 16:00] VITALS: BP 122/85; PULSE 77
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
[2024-11-11] MEDS: Potassium Chloride Oral Tablet 20 MEQ PO (16:19)
[2024-11-11 17:16] LABS: Troponin-I HS 13 pg/mL (3.0-78.0)
== END 2024-11-11 17:26 | disposition home or self-care (01) ==
PROVIDERS: Emergency Provider Emergency Medicine; PCP Nurse Practitioner Family; Visit Provider Emergency Medicine
DX: S20.211A Contusion of right front wall of thorax, initial encounter (principal); W01.190A Fall on same level from slipping, tripping and stumbling with subsequent striking against furniture, initial encounter; K76.0 Fatty (change of) liver, not elsewhere classified; K44.9 Diaphragmatic hernia without obstruction or gangrene; K80.20 Calculus of gallbladder without cholecystitis without obstruction; I10 Essential (primary) hypertension; J45.909 Unspecified asthma, uncomplicated; Z87.19 Personal history of other diseases of the digestive system; Z87.442 Personal history of urinary calculi; Z79.82 Long term (current) use of aspirin; Z79.899 Other long term (current) drug therapy; Z79.51 Long term (current) use of inhaled steroids
CPT/HCPCS: 71250; 74177; 80048; 80076; 84484; 85025; 93005; 96361; 96374; 96375; 99284; Q9967; A4216; J2405

== ENCOUNTER 2025-03-26 09:00 | Emergency (ER) | payer MEDICARE, MEDICAID, SELFPAY ==
[2025-03-26] VITALS (9 sets, daily range): BP systolic 116–132; BP diastolic 74–88; PULSE 66–94; RESP 14–20; TEMP 36.6–36.7; O2SAT 96–100; BMI 27.7
--- NOTE | 2025-03-26 09:09 | RAD_ITS ---
PROCEDURE: CHEST PA AND LATERAL 03/26/2025 REASON FOR EXAM: CHEST PAIN TECHNIQUE: CHEST PA AND LATERAL COMPARISON: Chest x-ray 02/25/2024. RAD/Chest PA and Lateral IMPRESSION: Examination limited by AP portable technique, hypoinflation, and significant pa tient motion on both views. A prominent hiatal hernia is seen. Areas of bibasilar atelectasis are noted, [id number]; cannot entir daisy exclude the presence of pneumonitis. No evidence of pulmonary edema. No pleural effusion or pneumothorax is seen. The cardiomediastinal silhouette is stable, without evidence of cardiomegaly. Reading Location: [place] [id number]
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
--- NOTE | 2025-03-26 09:17 | CT_ITS ---
PROCEDURE: BRAIN/HEAD WITHOUT CONTRAST 03/26/2025 REASON FOR EXAM: LIGHTHEADED, HEADACHES, WEAK TECHNIQUE: BRAIN/HEAD WITHOUT CONTRAST Coronal and Sagittal reconstruction series were provided. One or more dose reduction techniques were used (e.g., Automated exposure control, adjustment of the mA and/or kV according to patient size, use of iterative reconstruction technique. RADIATION DOSE SUMMARY: CTDlvol: 44.99 mGy DLP: A 12.98 mGycm COMPARISON: Prior study dated August 15, 2024. FINDINGS: Brain: Low density in the periventricular white matter suggests mild chronic small vessel ischemic changes. Once again, focal encephalomalacia is seen in the right frontal lobe. Calcification of the cavernous portions of the internal carotid arteries bilaterally. No acute abnormality is seen. CSF Spaces: Mild generalized cerebral atrophy Sinuses/Mastoids: Clear at visualized levels Bones: Unremarkable CT/Brain/Head without Contrast IMPRESSION: CHRONIC CHANGES. NO ACUTE FINDINGS. Reading Location: [id number]
[2025-03-26] MEDS: 0.9% Normal Saline (1000mL) 1,000 ML 999 ML IV ×3 (09:38→12:12)
[2025-03-26 09:45] LABS: Absolute Lymphocyte Count 1.77 X10^3/uL (0.83-4.51); Absolute Neutrophil Count 6.7 X10^3/uL (2.0-7.7); Basophil# 0.05 X10^3/uL; Basophil% 0.5 % (0-1); Eosinophil# 0.22 X10^3/uL; Eosinophils% 2.3 % (0-5); Hematocrit 35.2 % (40-54); Hemoglobin 10.4 g/dL (13.0-16.5); Lymphocyte # 1.77 X10^3/ul (0.83-4.51); Lymphocyte % 18.2 % (19-41); Mean Corp Hgb Conc 29.5 g/dL (32-36); Mean Corpuscular Hgb 21.2 pg (27.0-32.0); Mean Corpuscular Volume 71.8 fL (80-94); Mean Platelet Vol. 10.1 fl (6.2-12.0); Monocyte# 0.96 X10^3/uL; Monocyte% 9.9 % (0-10); NRBC Flagged by Analyzer 0 % (0-5); Neutrophil # 6.67 X10^3/uL (2.7-7.7); Neutrophil % 68.8 % (47-70); Platelet Count 351 K/mm3 (150-450); RBC Distribution Width CV 17.1 % (11.6-14.6); RBC Distribution Width SD 43.3 fl (35.1-43.9); White Blood Count 9.7 K/mm3 (4.4-11.0)
[2025-03-26 09:57] LABS: Partial Thromboplast Time 24.2 Seconds (24.1-36.2)
[2025-03-26 10:17] LABS: ALB/GLOB Ratio 1.1 RATIO (0.9-2.4); AST(SGOT) 20 U/L (<=37); Alanine Aminotransfer ALT/SGPT 11 U/L (<=46); Albumin, Serum 3.8 g/dL (3.4-4.8); Alkaline Phosphatase 63 U/L (40-129); Anion Gap 13 (5-15); BUN 16 mg/dL (4-19); BUN/Creat Ratio 13.2 RATIO (10-20); Calcium,Total 9.7 mg/dL (7.6-11.0); Carbon Dioxide 20.5 mmol/L (21.0-32.0); Chloride 103 mmol/L (98-108); Creatinine, Serum 1.19 mg/dL (0.70-1.20); EST Glomerular Filtration Rate 69 (>60); Estimated Creatinine Clearance 68.34 ml/min (50-250); Globulin 3.6 g/dL (2.2-4.2); Glucose 105 mg/dL (70-99); Potassium 3.7 mmol/L (3.3-5.1); Protein, Total 7.4 g/dL (5.9-8.4); Sodium Level 137 mmol/L (133-145); Total Bilirubin 0.37 mg/dL (0.00-1.30); Troponin T High Sensitivity < 6 ng/L (<=22)
[2025-03-26 10:19] LABS: Lactic Acid 1.5 mmol/L (0.0-2.0)
[2025-03-26 12:50] LABS: Bacteria 0 SEEN /hpf (None Seen); Mucous, Urine 0 SEEN /hpf (<or=2+); Red Blood Cells-Urine 0 SEEN /hpf (0-5); Squamous Epithelial Cells - UA 0 SEEN /hpf (0-5); White Blood Cells 0 SEEN /hpf (0-5)
[2025-03-26 12:57] LABS: Color, Urine Yellow (Yellow); Glucose, Dipstick Normal (Normal); Ketone-Dipstick Negative (Negative); Leukocyte Esterase-Dipstick Negative /ul (Negative); Nitrite-Dipstick Negative (Negative); Occult Blood-Urine Negative /ul (Negative); Protein-Dipstick Negative (Negative); Specific Gravity, Urine 1.015 (1.002-1.030); Urine Bilirubin Dipstick Negative (Negative); Urine Clarity Clear (Clear); Urine Urobilinogen Normal (Normal)
[2025-03-26 13:24] LABS: Troponin T High Sens 2 HR < 6 ng/L (<=22)
== END 2025-03-26 14:22 | disposition home or self-care (01) ==
PROVIDERS: Emergency Provider Emergency Medicine; PCP Nurse Practitioner Family; Visit Provider Emergency Medicine
DX: R42 Dizziness and giddiness (principal); R53.1 Weakness; I10 Essential (primary) hypertension; K44.9 Diaphragmatic hernia without obstruction or gangrene; J45.909 Unspecified asthma, uncomplicated; Z87.19 Personal history of other diseases of the digestive system; Z87.442 Personal history of urinary calculi; Z79.82 Long term (current) use of aspirin; Z79.899 Other long term (current) drug therapy
CPT/HCPCS: 70450; 71046; 80053; 81001; 83605; 84484; 85025; 85610; 85730; 87040; 87086; 87631; 93005; 96360; 96361; 99285; A4216

== ENCOUNTER 2025-04-14 19:57 | Emergency (ER) | payer MEDICARE, MEDICAID, SELFPAY ==
[2025-04-14] VITALS (7 sets, daily range): BP systolic 108–134; BP diastolic 73–80; PULSE 59–91; RESP 15–18; TEMP 37; O2SAT 98–99; BMI 28.3
--- NOTE | 2025-04-14 20:48 | EKG12_ITS ---
Test Reason : CP Blood Pressure : */* mmHG Vent. Rate : 80 BPM Atrial Rate : 80 BPM P-R Int : 154 ms QRS Dur : 86 ms QT Int : 396 ms P-R-T Axes : 19 -23 1 degrees QTcB Int : 456 ms Normal sinus rhythm Minimal voltage criteria for LVH, may be normal variant ( R in aVL ) Borderline ECG Confirmed by Mike Unger ([id number]), farm operations manager AUDREY PEPPER ([id number]) on 04/16/2025 11:21:57 AM Referred By: ELIZABETH Confirmed By: Mike Unger
--- NOTE | 2025-04-14 21:02 | RAD_ITS ---
PROCEDURE: CHEST 1 VIEW (PORTABLE) 04/14/2025 REASON FOR EXAM: CHEST PAIN TECHNIQUE: Frontal view of the chest. COMPARISON: 03/26/2025 FINDINGS: Mild pulmonary vascular congestion. Question mild interstitial edema. No focal consolidations. No pleural effusion or pneumothorax. Stable cardiomegaly. Unchanged hiatal hernia. RAD/Chest 1 View (Portable) IMPRESSION: Mild pulmonary vascular congestion and question mild interstitial edema. Stabl e [id number] cardiomegaly. Unchanged hiatal hernia. No focal consolidations. Reading Location: [id number]
[2025-04-14 21:39] LABS: Anion Gap 13 (5-15); BUN 12 mg/dL (4-19); BUN/Creat Ratio 11.7 RATIO (10-20); Calcium,Total 8.8 mg/dL (7.6-11.0); Carbon Dioxide 19.5 mmol/L (21.0-32.0); Chloride 106 mmol/L (98-108); Estimated Creatinine Clearance 77.90 ml/min (50-250); Glucose 102 mg/dL (70-99); Potassium 4.0 mmol/L (3.3-5.1); Troponin T High Sensitivity < 6 ng/L (<=22)
[2025-04-14 21:40] LABS: Hematocrit 30.4 % (40-54); Hemoglobin 9.1 g/dL (13.0-16.5); Immature Granulocytes Count 0.040 X10^3/uL (0.0-0.0); Mean Corp Hgb Conc 29.9 g/dL (32-36); Mean Corpuscular Volume 71.9 fL (80-94); Mean Platelet Vol. 9.6 fl (6.2-12.0); NRBC Flagged by Analyzer 0 % (0-5); Platelet Count 350 K/mm3 (150-450); RBC Distribution Width CV 16.9 % (11.6-14.6); RBC Distribution Width SD 43.0 fl (35.1-43.9); Red Blood Count 4.23 M/mm3 (4.6-6.2); White Blood Count 8.9 K/mm3 (4.4-11.0)
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
[2025-04-14 23:23] LABS: Troponin T High Sens 2 HR 7 ng/L (<=22)
[2025-04-15 05:44] LABS: Xtra Tube EP Lab EXTRA TUBE
== END 2025-04-14 23:56 | disposition home or self-care (01) ==
PROVIDERS: Emergency Provider Emergency Medicine; PCP Nurse Practitioner Family; Visit Provider Emergency Medicine
DX: R07.9 Chest pain, unspecified (principal); I42.8 Other cardiomyopathies; D64.9 Anemia, unspecified; R05.9 Cough, unspecified; I10 Essential (primary) hypertension; E78.00 Pure hypercholesterolemia, unspecified; J45.909 Unspecified asthma, uncomplicated; Z87.19 Personal history of other diseases of the digestive system; Z79.82 Long term (current) use of aspirin; Z79.899 Other long term (current) drug therapy
CPT/HCPCS: 71045; 80048; 82274; 84484; 85025; 93005; 99284; A4216

== ENCOUNTER 2025-06-21 18:04 | Emergency (ER) | payer MEDICARE, MEDICAID, SELFPAY ==
[2025-06-21] VITALS (7 sets, daily range): BP systolic 97–131; BP diastolic 55–93; PULSE 76–109; RESP 16–20; TEMP 36.7; O2SAT 96–100; BMI 25.7
--- NOTE | 2025-06-21 18:26 | EKG12_ITS ---
Test Reason : CP Blood Pressure : */* mmHG Vent. Rate : 91 BPM Atrial Rate : 91 BPM P-R Int : 150 ms QRS Dur : 94 ms QT Int : 374 ms P-R-T Axes : 18 -25 6 degrees QTcB Int : 460 ms Normal sinus rhythm Moderate voltage criteria for LVH, may be normal variant ( R in aVL , [place] product ) Borderline ECG Confirmed by LUZMARIA WOMACK, JUAN FRANCISCO ([id number]), editorial intern AUDREY PEPPER ([id number]) on 06/23/2025 8:30:24 AM Referred By: Confirmed By: JUAN FRANCISCO DUTTA MD
--- NOTE | 2025-06-21 18:26 | RAD_ITS ---
PROCEDURE: CHEST PA AND LATERAL 06/21/2025 REASON FOR EXAM: LEFT-SIDED CHEST PAIN AND BACK PAIN TECHNIQUE: Procedure Code: RADCXR Modality: DX Procedure: CHEST PA AND LATERAL COMPARISON: Chest x-ray March 26, 2025. FINDINGS: Lungs: The left hemidiaphragm is slightly elevated compared to the right of indeterminate significance. Lung volumes are very low, particularly the left. Hazy airspace opacity seen at the left lung base possibly due to atelectasis or mild infiltrate/pneumonia. Clinical correlation and radiographic follow-up is advised to confirm resolution. For follow-up consider proper inspiration PA and lateral views. Pleura: No significant pleural effusion seen. There is no evidence of pneumothorax. Mediastinum: There is no mediastinal widening or mediastinal shift. Heart: The cardiac silhouette is not enlarged. 10.5 cm lucency overlying the cardiac shadow likely representing a distended gas-filled hiatal hernia. Vascular: Calcified aortic atherosclerosis. Kathryn: The pulmonary kathryn are not enlarged or retracted. Osseous: No acute fracture is seen. Scoliosis and degenerative changes of the spine. Deformity of the right scapula may be developmental or chronic posttraumatic. RAD/Chest PA and Lateral IMPRESSION: Mild opacity at the left lung base to be correlated for atelectasis versus infi ltrate/pneumonia. - 10.5 cm lucency overlying the cardiac shadow likely representing a gas-filled d istended hiatal hernia of indeterminate clinical significance. - Other findings discussed above. Reading Location: [id number]
[2025-06-21 18:42] LABS: Hematocrit 33.2 % (40-54); Hemoglobin 9.9 g/dL (13.0-16.5); Immature Granulocytes Count 0.040 X10^3/uL (0.0-0.0); Mean Corp Hgb Conc 29.8 g/dL (32-36); Mean Corpuscular Volume 72.0 fL (80-94); Mean Platelet Vol. 10.1 fl (6.2-12.0); NRBC Flagged by Analyzer 0 % (0-5); Platelet Count 346 K/mm3 (150-450); RBC Distribution Width CV 17.2 % (11.6-14.6); RBC Distribution Width SD 43.7 fl (35.1-43.9); Red Blood Count 4.61 M/mm3 (4.6-6.2); White Blood Count 9.4 K/mm3 (4.4-11.0)
--- OUTSIDE RECORDS SUMMARY | 2025-06-21 18:51 | XMS RPT_ITS | CCD ---
Author Organization [facility] Care Team Providers Care Rn Renal Name Role Phone Estela Alexandra E Unavailable Tamar Usman Unavailable Slarb, Keerthi Unavailable Unavailable Unavailable Unavailable Wesley Zhang Unavailable Jassi Stanley Unavailable Carlos Rosales Unavailable Unavailable Harper Lerma Unavailable Unavailable Jassi Stanley Unavailable Nasrin ALEX Jennifer Unavailable Tamar DO Usman Unavailable Wesley Zhang Unavailable Jassi Stanley MD Unavailable Carlos Rosales LPN Unavailable Unavailable Unavailable Unavailable Wesley Hdez MD Unavailable Nasrin Estela Unavailable Edin Patel Unavailable Tamar DO Usman Unavailable Gravius EVE, Evelia Unavailable Unavailable Kate Luna Unavailable Unavailable Unavailable Primary Care Provider Unavailabl e Nasrin Estela Unavailable Ting Marte LPN Unavailable Unavailable Shreya Cat CNP Unavailable Benito PRADO Kavina Unavailable Unavailable Shreya Cat CNP Unavailable Marshall Grissom MD Unavailable Slabillie SHEPHERD, Keerthi Unavailable Unavailable Yvette Hernandez MA Unavailable Unavailable ROBINA Cat Primary Care Provider Heidy Zafar Attending Provider Unavailable Emory, SURGICAL SALES REPRESENTATIVE-C Shreya Referring Provider Dr. Marshall Grissom Attending Provider Siria Beaver Attending Provider Unavailable Weston Perry Unavailable Awilda Garcia MD Primary Care Provider Johnnie Zuniga LPN Unavailable Unavailable Emory ALEX, Shreya Attending Unavailable Emory AUTOMATIC SHIRRING MACHINE OPERATOR, Shreya Referring Unavailable Emory AUTOMATIC SHIRRING MACHINE OPERATOR, Shreya Consulting Unavailable Emory, SURGICAL SALES REPRESENTATIVE-C Shreya Primary Care Provider Emory, SURGICAL SALES REPRESENTATIVE-C Shreya Referring Provider Gregg SURGICAL SALES REPRESENTATIVE, SURGICAL SALES REPRESENTATIVE-C Brinda Attending Provider LESLEY Marquez LPN Unavailable Unavailable Emory, SURGICAL SALES REPRESENTATIVE-C Shreya Primary Care Provider Emory, SURGICAL SALES REPRESENTATIVE-C Shreya Referring Provider Gregg DOYLE, SURGICAL SALES REPRESENTATIVE-C Brinda Attending Provider DAHBAR, MAZEN Referring Unavailable DAHBAR, MAZEN Primary Care Unavailable DAHBAR, MAZEN Referring Unavailable DAHBAR, MAZEN Primary Care Unavailable DAHBAR, MAZEN Referring Unavailable DAHBAR, MAZEN Primary Care Unavailable REUSCH, GENIA Attending Unavailable DAHBAR, MAZEN Referring Unavailable DAHBAR, MAZEN Primary Care Unavailable SESE, STEVENSON T Referring Unavailable DAHBAR, MAZEN Primary Care Unavailable LACAVAHORACELEYLA Referring Unavailable DAHBAR, MAZEN Primary Care Unavailable DAHBAR, MAZEN Referring Unavailable DAHBAR, MAZEN Primary Care Unavailable DAHBAR, MAZEN Referring Unavailable REUSCH, GENIA Attending Unavailable DAHBAR, MAZEN Primary Care Unavailable DAHBAR, MAZEN Referring Unavailable REUSCH, GENIA Attending Unavailable DAHBAR, MAZEN Primary Care Unavailable Dahbar Awilda WOMACK Primary Care Provider Naila Weber PA-C Unavailable Jeremy BISHOPN.AUTOMATIC SHIRRING MACHINE OPERATOR, Prashanth M Unavailable DAHBAR, MAZEN Primary Care Unavailable GEORGE NORIEGA Attending Unavailable NORIEGA, GEORGE Admitting Unavailable DAHBAR, MAZEN Primary Care Unavailable NORIEGA, GEORGE Referring Unavailable Emory SURGICAL SALES REPRESENTATIVE-C, Shreya Primary Care Provider Dr. Gavino Jeffery DO Emergency Provider [phone] Dr. Gavino Jeffery DO Attending Provider [phone] Dr. Harrison Mandujano DO Emergency Provider Harrison Mandujano Attending Unavailable Emory, Shreya Primary Care Unavailable Emory, Shreya Primary Care Unavailable Arash Pink Attending Unavailable Emory, Shreya Primary Care Unavailable Emory, Shreya Attending Unavailable Emory, Shreya Referring Unavailable Dawn Elizabeth Attending Unavailable Emory, Shreya Primary Care Unavailable Gavino Jeffery Attending Unavailable Emory, Shreya Primary Care Unavailable DAHBAR, MAZEN Attending Unavailable DAHBAR, MAZEN Primary Care Unavailable DAHBAR, MAZEN Primary Care Unavailable NORIEGA, GEORGE Attending Unavailable DAHBAR, MAZEN Referring Unavailable DAHBAR, MAZEN Primary Care Unavailable TRISTIAN CHAUDHARY Attending Unavailable DAHBAR, MAZEN Primary Care Unavailable SELF Referring Unavailable NORIEGA, GEORGE Attending Unavailable DAHBAR, MAZEN Primary Care Unavailable NORIEGA, GEORGE Attending Unavailable DAHBAR, MAZEN Primary Care Unavailable NORIEGA, GEORGE Referring Unavailable DAHBAR, MAZEN Primary Care Unavailable DAHBAR, MAZEN Attending Unavailable DAHBAR, MAZEN Primary Care Unavailable SELF Referring Unavailable Medications Current Medications Medication Drug Class(es) Dates Sig (Normalized) Sig (Original) [id number] actuat albuterol 0.09 mg/actuat metered dose inhaler (20 sources) beta2-Adrenergic Agonist Start: 04-26-2024 End: 03-03-2025 take 2 puff(s) by inhalation every four hours as needed for wheezing albuterol HFA (VENTOLIN HFA) 90 mcg/actuation inhaler Inhale 2 puffs as instructed every 4 hours as needed for wheezing/shortnes s of breath. 1 each 1 03/04/2025 Active Start: 02-20-2023 End: 04-24-2024 take 2 puff(s) by inhalation every four hours as needed for wheezing albuterol HFA (VENTOLIN HFA) 90 mcg/actuation inhaler Inhale 2 Puffs as instructed every 4 hours as needed for wheezing/shortness of breath. 1 Each 1 02/20/2023 04/24/2024 Discontinued Start: 09-19-2022 End: 05-31-2023 take 2 puff(s) by inhalation once daily Ventolin HFA 90 mcg/actuation inhalation HFA Aerosol with Adapter 2 (two) Puff daily for 0 days Quantity: 1 {Each} Refills: 4 Ordered: 31-May-2023 LESLEY Marquez LPN Start : 19-Sep-2022 End : 31-May-2023 Inactive Start: 07-27-2022 Albuterol Sulf ate 90 mcg/actuation HFA aerosol inhaler Active 2 NMA INHALATION Q4H as needed for SOB July 27, 2022 12:00am Start: 07-27-2022 take 1 puff(s) by in halation every six hours Albuterol Sulfate Active 2 PUFF INHALATION EVERY 6 HOURS July 26, 2022 11:00pm Start: 07-31-2020 End: 03-17-2021 take 2 puff(s) by inhalation once daily Ventolin HFA 108 (90 Base) MCG/ACT Inhalation Aerosol Solution 2 (two) Puff daily for 0 days Quantity: 2 {Inhaler} Refills: 1 Ordered: 17-Mar-2021 Carlos Rosales LPN Start : 31-Jul-2020 End : 17-Mar-2021 Inactive Start: 07-31-2020 End: 03-17-2021 take 2 puff(s) by inhalation once daily Ventolin HFA 108 (90 Base) MCG/ACT Inhalation Aerosol Solution 2 (two) Puff daily for 0 days Quantity: 2 {Inhaler} Refills: 1 Ordered: 17-Mar-2021 Carlos Rosales LPN Start : 31-Jul-2020 End : 17-Mar-2021 Inactive Start: 07-31-2020 take 2 puff(s) by in halation once daily Ventolin HFA 108 (90 Base) MCG/ACT Inhalation Aerosol Solution 2 (two) Puff daily for 0 days Quantity: 2 {Inhaler} Refills: 1 Ordered: 31-Jul-2020 Estela Alexandra CNP, CNP, Mary E Start : 31-Jul-2020 Active Start: 06-09-2020 take 2 puff(s) by in halation once daily Ventolin HFA 108 (90 Base) MCG/ACT Inhalation Aerosol Solution 2 (two) Puff daily for 0 days Quantity: 2 {Inhaler} Refills: 1 Ordered: 17-Jun-2020 Bobby SHEPHERDCarlos Start : 09-Jun-2020 Active Start: 10-31-2019 End: 07-07-2020 Albuterol Sulfate 1 INHALER inhaler Discontinued 1 - 2 NMA INHALATION EVERY 4 HOURS NEEDED as needed for Wheezing 1 May 12, 2020 12:00am July 07, 2020 9:47am Start: 10-31-2019 End: 07-07-2020 Albuterol Sulfate 18 GM HFA aerosol inhaler Discontinued 2 NMA IH NEEDED as needed for Sob &/Or Wheezing October 31, 2019 1:00am July 07, 2020 9:47am Start: 10-31-2019 End: 07-07-2020 Albuterol Sulfate Discontinu ed 2 PUFF IH NEEDED October 31, 2019 12:00am July 07, 2020 8:47am Start: 10-31-2019 End: 07-07-2020 take 1 puff(s) by inhalation every four hours as needed Albuterol Sulfate Discontinued 1 - 2 PUFF INHALATION EVERY 4 HOURS NEEDED May 11, 2020 11:00pm July 07, 2020 8:47am Start: 06-07-2019 take 2 puff(s) by in halation every four hours as needed for wheezing albuterol HFA (VENTOLIN HFA) 90 mcg/actuation inhaler Inhale 2 Puffs as instructed every 4 hours as needed for Wheezing/Shortness of Breath. 1 Inhaler 0 06/07/2019 Active Comment on above: Inhale 2 Puffs as in structed every 4 hours as needed for Wheezing/Shortness of Breath. amLODIPine 10 mg oral tablet (20 sources) Dihydropyridine Calcium Channel Kirstie Start: 12-04-19 25 End: 12-04-19 take 1 tablet by mouth once daily amLODIPine (NORVASC) 10 mg tablet Take 1 tablet by mouth once daily. 90 tablet 3 12/03/2024 12/03/2025 Active Start: 04-26-2024 End: 12-03-2024 take 2 tablets by mouth once daily amLODIPine (NORVASC) 10 mg tablet Take 2 tablets by mouth once daily. 180 tablet 08/20/2024 12/03/2024 Discontinued Start: 07-24-2023 take 1 tablet by papa th once daily amLODIPine 10 mg oral tablet 1 (one) Tablet one tab by mouth daily for 90 days Quantity: 90 {Tablet} Refills: 3 Ordered: 24-Jul-2023 Shreya Cat CNP Start : 24-Jul-2023 Active Comments: per Dr. Awilda Garcia ([facility] cardio?) Start: 02-20-2023 End: 04-24-2024 take 2 tablets by mouth once daily amLODIPine (NORVASC) 10 mg tablet Take 2 tablets by mouth once daily. 180 tablet 02/20/2023 04/24/2024 Discontinued Start: 12-15-2022 amLODIPine (NO RVASC) 10 mg tablet 20 mg. 0 12/15/2022 Active Start: 07-27-2022 take 1 tablet by papa th once daily Amlodipine 10 mg tablet Active 10 mg PO DAILY 90 3 July 27, 2022 3:04pm Start: 07-31-2020 End: 01-31-2023 take 1 tablet by mouth once daily Amlodipine 5 mg tablet Discontinued 5 mg PO DAILY July 14, 2022 12:00am July 27, 2022 3:05pm Comment on above: 20 mg. Take by mouth. Take 5 mg by mouth o nce daily. Take 2 tablets by mo uth once daily. per Dr. Awilda Garcia ([facility] cardio?) aspirin 81 mg delayed release oral tablet (20 sources) Platelet Aggregation Inhibitor, Nonsteroidal Anti-inflammatory Drug Start: 05-18-20 End: 08-20-20 24 take 1 tablet by mouth once daily aspirin, enteric coated (ASPIRIN, ENTERIC COATED) 81 mg EC tablet Indications: Hyperlipidemia, unspecified hyperlipidemia type Take 1 tablet by mouth once daily. 90 tablet 3 08/20/2024 Active Comment on above: Take 1 tablet by papa th once daily. famotidine 40 mg oral tablet (19 sources) Histamine-2 Receptor Antagonist Start: 11-13-19 take 1 tablet by mouth once daily at bedtime famotidine (PEPCID) 40 mg tablet Take 40 mg by mouth daily at bedtime. 11/13/2024 Active Start: 06-03-2022 End: 07-14-2022 take 1 tablet by mouth twice daily Famotidine (Pepcid) 20 mg tablet Discontinued 20 mg PO TWICE A DAY 30 0 June 03, 2022 12:00am July 14, 2022 3:48pm hydroCHLOROthiazide 12.5 mg / lisinopril 20 mg oral tablet (20 sources) Thiazide Diuretic, Angiotensin Converting Enzyme Inhibitor Start: 03-24-2025 End: 05-15-2025 take 1 tablet by mouth once daily lisinopril-hydroCHLOROthiazide (ZESTORETIC) 20-12.5 mg per tablet Take 1 tablet by mouth once daily. 30 tablet 5 05/16/2025 Active Start: 02-08-2023 End: 03-21-2025 take 1 tablet by mouth once daily lisinopril-hydroCHLOROthiazide (ZESTORET IC) 20-12.5 mg per tablet Take 1 tablet by mouth once daily. 90 tablet 2 08/20/2024 03/21/2025 Discontinued Start: 02-08-2023 take 1 tablet by papa th once daily Lisinopril-Hydrochlorothiazide Active 1 TABLET PO DAILY February 07, 2023 11:00pm Start: 01-31-2023 End: 02-02-2023 take 1 tablet by mouth once daily lisinopril-hydroCHLOROthiazide (ZESTORET IC) 20-12.5 mg per tablet take 1 tablet by mouth once daily 90 tablet 2 02/02/2023 Active Comment on above: Take 1 tablet by papa th once daily. take 1 tablet by papa th once daily Dr. Garcia polyethylene glycol 3350 276000 mg / potassium chloride 2970 mg / sodium bicarbonate 6740 mg / sodium chloride 5860 mg / sodium sulfate 40320 mg powder for oral solution (1 source) Osmotic Laxative Start: 5 peg 3350-Electrolytes (GOLYTELY) 236-22.74-6.74 -5.86 gram suspension Indications: Screening for colon cancer Refer to printed prep instructions from your provider. 4000 mL 05/02/2025 Active rosuvastatin calcium 20 mg oral tablet (20 sources) HMG-CoA Reductase Inhibitor Start: End: take 1 tablet by mouth once daily at bedtime rosuvastatin (CRESTOR) 20 mg tablet Indications: Hyperlipidemia, unspecified hyperlipidemia type Take 1 tablet by mouth daily at bedtime. 90 tablet 3 08/20/2024 08/20/2025 Active Comment on above: Take 1 tablet by papa th daily at bedtime. sucralfate 1000 mg oral tablet (10 sources) Aluminum Complex Start: take 1 tablet by mouth twice daily Sucralfate 1 gram tablet Active 1 g PO TWICE A DAY March 26, 2025 12:00am Start: 11-13-2024 take 1 tablet by papa th every twelve hours sucralfate (CARAFATE) 1 gram tablet Take 1 tablet by mouth every 12 hours. 11/13/2024 Active triamcinolone acetonide 5 mg/ml topical cream (19 sources) Corticosteroid Start: 12-22-2023 triamcinolone acetonide (KENALOG) 0.5 % cream Apply 1 application to affected area two times a day. 45 g 1 12/22/2023 Active Comment on above: Apply 1 application to affected area two times a day. Completed/Discontinued Medications Medication Drug Class(es) Dates Sig (Normalized) Sig (Original) Acetaminophen (20 sources) End: 07-18-2024 acetaminophen (TYLENOL EXTRA STRENGTH ORAL) Take by mouth. 07/18/2024 Discontinued (Course of therapy completed) acetaminophen (T YLENOL EXTRA STRENGTH ORAL) Take by mouth. Active acetaminophen (T YLENOL EXTRA STRENGTH ORAL) Take by mouth. 0 Active Comment on above: Take by mouth. acetaminophen 325 mg / HYDROcodone bitartrate 5 mg oral tablet (20 sources) Opioid Agonist Start: 11-11-2024 End: 03-26-2025 Hydrocodone-Acetaminophen 5-325 mg tablet Discontinued 1 {tbl} PO EVERY 6 HOURS NEEDED as needed for Pain 10 3 0 November 11, 2024 March 26, 2025 9:45am Contusion of rib Contusion of unspecified front wall of thorax, initial encounter Start: 01-28-2022 End: 04-14-2023 HYDROcodone-acetaminophen (N ORCO) 5-325 mg per tablet Take by mouth. 0 01/28/2022 04/14/2023 Discontinued Start: 01-28-2022 take 1 tablet by papa th every six hours Hydrocodone-Acetaminophen Active 1 TABLE T PO EVERY 6 HOURS 10 3 January 28, 2022 6:20am Comment on above: Take by mouth. amoxicillin 875 mg / clavulanate 125 mg oral tablet (20 sources) Penicillin-class Antibacterial Start: 2 End: 3 take 1 tablet by mouth twice daily amoxicillin-pot clavulanate 875-125 mg oral tablet 1 (one) Tablet bid for 0 days Quantity: 20 {Tablet} Refills: 0 Ordered: 21-Oct-2022 Yvette Hernandez MA Start : 28-Sep-2022 End : 21-Oct-2022 Inactive Start: 06-10-2022 End: 07-04-2022 take 1 tablet by mouth twice daily Amoxicillin-Pot Clavulanate 875-125 MG Oral Tablet 1 (one) Tablet bid for 0 days Quantity: 20 {Tablet} Refills: 0 Ordered: 04-Jul-2022 Keerthi Naranjo LPN Start : 10-Jun-2022 End : 04-Jul-2022 Inactive Comment on above: Take 1 tablet by papa th twice daily. azithromycin 250 mg oral tablet (9 sources) Macrolide Antimicrobial Start: 2 End: 2 Azithromycin (Zithromax Z-Isaiah) 250 mg tablet Discontinued 0 PO .COMPLEX 6 0 June 03, 2022 12:00am July 14, 2022 3:48pm For 250 mg dose pack: take 500 mg today (day 1), then 250 mg for 4 days (days 2-5) Blood Pressure Pill (12 sources) Start: 4 End: 7 take 1 dose by mouth once daily Blood Pressure Pill Discontinued PO DAILY January 04, 2014 6:15am September 19, 2017 10:33am Start: 01-04-2014 End: 09-19-2017 take 1 dose by mouth once daily Blood Pressure Pill Discontinued PO DAILY January 03, 2014 11:00pm September 19, 2017 9:33am Start: 01-04-2014 End: 09-19-2017 take 1 dose by mouth once daily Blood Pressure Pill Discontinued PO DAILY January 04, 2014 12:00am September 19, 2017 10:33am Budesonide-Formoterol [Budesonide-Formoterol Hfa 160 Mcg-4.5 Mcg/Actuation Aerosol Inhaler] (15 sources) Corticosteroid, beta2-Adrenergic Agonist Start: 09-23-2023 End: 03-26-2025 Budesonide-Formoterol [Budesonide-Formoterol Hfa 160 Mcg-4.5 Mcg/Actuation Aerosol Inhaler] (Budesonide-Formoterol Hfa 160 Mcg-4.5 Mcg/Actuation ) 160-4.5 mcg/actuation HFA aerosol inhaler Discontinued INHALATION September 23, 2023 1:00am March 26, 2025 9:44am Start: 09-23-2023 Budesonide-For moterol [Budesonide-Formoterol Hfa 160 Mcg-4.5 Mcg/Actuation Aerosol Inhaler] (Budesonide-Formoterol Hfa 160 Mcg-4.5 Mcg/Actuation ) 160-4.5 mcg/actuation HFA aerosol inhaler Active INHALATION September 23, 2023 12:00am Start: 05-15-2023 End: 11-06-2023 take 2 puff(s) by inhalation twice daily budesonide-formoterol (SYMBICORT) 160-4.5 mcg/actuation inhaler Inhale 2 Puffs as instructed twice daily. 30.6 g 3 05/15/2023 11/06/2023 Discontinued Start: 05-15-2023 take 2 puff(s) by in halation twice daily budesonide-formoterol (SYMBICORT) 160-4.5 mcg/actuation inhaler Inhale 2 Puffs as instructed twice daily. 30.6 g 3 05/15/2023 Active Symbicort 160-4. 5 mcg/actuation inhalation HFA Aerosol with Adapter 2 puffs bid (160-4.5 mcg/actuat) Active Comments: Leatha Comment on above: Inhale 2 Puffs as in structed twice daily. Leatha cetirizine hydrochloride 10 mg oral tablet (19 sources) Histamine-1 Receptor Antagonist Start: 3 End: take 1 tablet by mouth once daily Cetirizine 10 mg tablet Discontinued 10 mg PO DAILY September 23, 2023 1:00am March 26, 2025 9:45am allergies Start: 05-15-2023 take 1 tablet by papa th once daily cetirizine (ZYRTEC) 10 mg tablet Take 1 tablet by mouth once daily. 90 tablet 3 05/15/2023 Active Comment on above: Take 1 tablet by papa th once daily. erythromycin 0.005 mg/mg ophthalmic ointment (12 sources) Macrolide, Macrolide Antimicrobial Start: 01-05-20 End: 09-19-20 Erythromycin 1 GM ointment Discontinued 1 NMA EACH EYE THREE TIMES A DAY 1 0 January 04, 2014 12:00am September 19, 2017 10:33am X 4 DAYS 14 actuat fluticasone propionate 0.25 mg/actuat / salmeterol 0.05 mg/actuat dry powder inhaler (20 sources) Corticosteroid, beta2-Adrenergic Agonist Start: 03-17-20 End: 05-11-20 22 take 1 puff(s) by inhalation twice daily Advair Diskus 250-50 MCG/DOSE Inhalation Aerosol Powder Breath Activated 1 (one) Puff bid for 0 days Quantity: 1 {Inhalation} Refills: 0 Ordered: 11-May-2022 Isaak Marte LPNcy Start : 17-Mar-2021 End : 11-May-2022 Discontinued Comments: This order discontinued per [facility]. Start: 07-31-2020 End: 05-15-2023 take 1 puff(s) by inhalation four times daily fluticasone-salmeterol (ADVAIR, WIXELA) 250-50 mcg/dose inhaler Inhale 1 Puff as instructed four times daily. 07/31/2020 05/15/2023 Discontinued (Course of therapy completed) Start: 07-31-2020 End: 05-11-2022 take 1 puff(s) by inhalation twice daily Wixela Inhub 250-50 MCG/DOSE Inhalation Aerosol Powder Breath Activated 1 puff BID for 0 days Refills: 0 Ordered: 17-Mar-2021 Estela Alexandra Start : 31-Jul-2020 End : 17-Mar-2021 Inactive Start: 07-31-2020 End: 05-15-2023 take 1 puff(s) by inhalation four times daily fluticasone-salmeterol (ADVAIR, WIXELA) 250-50 mcg/dose inhaler Inhale 1 Puff as instructed four times daily. 0 07/31/2020 05/15/2023 Discontinued (Course of therapy completed) Start: 07-31-2020 fluticasone-sa lmeterol (ADVAIR, WIXELA) 250-50 mcg/dose inhaler Inhale as instructed. 0 07/31/2020 Active Comment on above: This order discontin ued per [facility]. Inhale as instructed . Inhale 1 Puff as ins tructed four times daily. 60 actuat formoterol fumarate 0.005 mg/actuat / mometasone furoate 0.2 mg/actuat metered dose inhaler (9 sources) Corticosteroid, beta2-Adrenergic Agonist Start: 11-06-19 End: 07-18-20 take 2 puff(s) by inhalation twice daily mometasone-formotero l (DULERA) 200-5 mcg/actuation inhaler Indications: Moderate persistent asthma without complication Inhale 2 Puffs as instructed two times a day. 18 g 5 11/06/2023 07/18/2024 Discontinued (Course of therapy completed) Comment on above: Inhale 2 Puffs as in structed two times a day. lisinopril 20 mg oral tablet (20 sources) Angiotensin Converting Enzyme Inhibitor Start: 07-27-20 End: 03-26-20 take 1 tablet by mouth once daily Lisinopril 20 mg tablet Discontinued 20 mg PO DAILY 90 July 27, 2022 3:04pm March 26, 2025 9:45am Start: 05-31-2022 End: 07-27-2022 take 1 tablet by mouth once daily Lisinopril 10 mg tablet Discontinued 10 mg PO DAILY July 14, 2022 12:00am July 27, 2022 3:05pm Comment on above: Take 1 tablet by papa th every afternoon. meloxicam 15 mg oral tablet (20 sources) Nonsteroidal Anti-inflammatory Drug Start: End: take 1 tablet by mouth once daily at mealtime Meloxicam 15 MG Oral Tablet 1 (one) Tablet daily with food for 0 days Quantity: 30 {Tablet} Refills: 0 Ordered: 17-Mar-2021 Carlos Rosales LPN Start : 15-Mar-2021 End : 17-Mar-2021 Inactive Comments: with food Start: 03-15-2021 End: 01-01-2021 take 1 tablet by mouth once daily at mealtime Meloxicam 15 MG Oral Tablet 1 (one) Tablet daily with food for 0 days Quantity: 30 {Tablet} Refills: 0 Ordered: 15-Mar-2021 Estela Alexandra CNP, CNP, Mary E Start : 15-Mar-2021 End : 01-Jan-2021 Active Comments: with food Start: 11-11-2020 End: 01-01-2021 take 1 tablet by mouth once daily at mealtime Meloxicam 15 MG Oral Tablet 1 (one) Tablet daily with food for 0 days Quantity: 30 {Tablet} Refills: 0 Ordered: 01-Jan-2021 Carlos Rosales LPN Start : 11-Nov-2020 End : 01-Jan-2021 Inactive Comments: with food Start: 09-07-2020 take 1 tablet by papa th once daily at mealtime Meloxicam 15 MG Oral Tablet 1 (one) Tablet daily with food for 0 days Quantity: 30 {Tablet} Refills: 0 Ordered: 07-Sep-2020 Estela Alexandra CNP, CNP, Mary E Start : 07-Sep-2020 Active Comments: with food Comment on above: with food 24 hr metoprolol succinate 25 mg extended release oral tablet (20 sources) beta-Adrenergic Kirstie Start: 09-23-2023 End: 03-26-2025 take 2 tablets by mouth every twenty-four hours Metoprolol Succinate 25 mg tablet extended release 24 hr Discontinued 12.5 mg PO Q24H September 23, 2023 1:00am March 26, 2025 9:45am tachycardia Start: 09-23-2023 take 12.5 mg by mout h every twenty-four hours Metoprolol Succinate Active 12.5 MG PO Q24H September 23, 2023 12:00am Start: 02-20-2023 End: 03-24-2026 take 0.5 tablet by mouth once daily metoprolol succinate ER (TOPROL XL) 25 mg 24 hr tablet Indications: Coronary artery disease of [place] artery of [place] heart with stable angina pectoris Take 0.5 tablets by mouth once daily. 45 tablet 3 08/20/2024 03/21/2025 Discontinued Comment on above: Take 0.5 tablets by mouth once daily. naproxen 500 mg oral tablet (20 sources) Nonsteroidal Anti-inflammatory Drug Start: 3 End: 3 take 1 tablet by mouth twice daily naproxen (NAPROSYN) 500 mg tablet Take 500 mg by mouth twice daily. 10/24/2022 04/25/2023 Discontinued Comment on above: Take 500 mg by mouth twice daily. omeprazole 40 mg delayed release oral capsule (20 sources) Proton Pump Inhibitor Start: 3 End: take 1 capsule by mouth twice daily Omeprazole 40 mg capsule,delayed release(DR/EC) Discontinued 40 mg PO TWICE A DAY September 23, 2023 1:00am March 26, 2025 9:44am Start: 04-14-2023 End: 07-13-2023 take 1 capsule by mouth once daily omeprazole (PRILOSEC) 40 mg capsule Indications: Esophageal dysphagia , Gastroesophageal reflux disease, unspecified whether esophagitis present , Hiatal hernia Take 1 capsule by mouth once daily. 30 capsule 2 04/14/2023 04/25/2023 Discontinued Start: 03-17-2021 End: 05-11-2022 take 1 tablet by mouth once daily before mealtime PriLOSEC OTC 20 MG Oral Tablet Delayed Release 1 (one) Tablet once daily before a meal for 0 days Quantity: 30 {Tablet} Refills: 0 Ordered: 11-May-2022 Ting Marte LPN Start : 17-Mar-2021 End : 11-May-2022 Inactive Start: 03-17-2021 End: 04-14-2023 omeprazole (PRILOSEC) 20 mg capsule Take by mouth. 0 03/17/2021 04/14/2023 Discontinued Comment on above: Take by mouth. Take 1 capsule by [facility] once daily. Take 1 capsule by [facility] twice daily. perflutren lipid microspheres 1.3 mL in NaCl (PF) 0.9% 10 mL injection (DEFINITY) (20 sources) Start: 3 End: 4 perflutren lipid microspheres 1.3 mL in NaCl (PF) 0.9% 10 mL injection (DEFINITY) predniSONE 20 mg oral tablet (20 sources) Start: 3 End: 3 take 2 tablets by mouth once daily predniSONE 20 mg oral tablet 2 (two) tablet daily for 5 days Quantity: 10 {Tablet} Refills: 0 Ordered: 31-May-2023 Shreya Cat CNP Start : 31-May-2023 End : 05-Jun-2023 Inactive Start: 10-31-2019 End: 07-07-2020 take 40 mg by mouth once daily at mealtime Prednisone Discontinued 40 MG PO DAILY October 31, 2019 12:00am July 07, 2020 8:47am With food Start: 06-07-2019 End: 01-31-2023 take 2 tablets by mouth once daily at mealtime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 Unclassified (6 sources) Shoulder impingement, left Unclassified (6 sources) Transient LOC (loss of consciousness) Unclassified (6 sources) Whiplash, initial encounter Unclassified (1 source) BMI 26.0-26.9,adult Unclassified (1 source) Cholelithiasis without cholecystitis Unclassified (1 source) Steatosis, liver Unclassified (20 sources) Unspecified Diagnosis 06-10-2022 Results Test Name Value Interpretation Reference Range Facility [facility] 05-08-2025 CNOV Office Visit ([facility] ) ----- CASH MICHEL ([id number]) 1965 [facility] Date Time Provider Department 05/08/25 3:30 PM TRISTIAN CHAUDHARY [facility] During your visit today, we recorded the following information about you: Temperature Pulse Blood pressure Weight 98.5 degrees 87/minute 130/82 82.8 kg Height 1.727 m Tristian Chaudhary MD 05/08/2025 4:16 PM Signed Subjective Cash Michel is a 60 year old male. Medication discussion HPI Medication Review: - Uncertain about continuing two medications prescribed by GI - Taking two sucralfate 1g tablets BID, unaware they were the same medication. - Taking a medication before meals to aid food passage through a rupture. - Current medications include: - Aspirin 81 mg daily. - Lisinopril-hydrochlorothi azide 20 mg/12.5 mg daily. - Amlodipine 10 mg daily. - Rosuvastatin 20 mg daily. - Famotidine 40 mg daily. Abdominal Pain: - Pain from umbilicus to neck, associated with a rupture. - Severe pain at times, believes it may contribute to constipation. - Advised by [facility] in [place] to have gallbladder removed; has not scheduled surgery yet. Chronic Constipation: - Lifelong history of constipation. - Delays addressing constipation, sometimes waiting up to a month before taking action. - Taking Miralax TID as recommended by PCP Colonoscopy: - Underwent colonoscopy due to abdominal pain and constipation. - Findings included diverticulosis, internal hemorrhoids, and a 3 mm polyp in the ascending colon, which was removed. - Advised to take medication and follow up with PCP to clear that stuff up. Endoscopy: - Endoscopy performed in 2022 revealed H. pylori infection, treated with antibiotics. - Previous endoscopy by GI found a growing rupture, advised that a fall could lead to severe bleeding. Chest Pain: - Recent ER visit on April 14 for chest pain. Review of Systems Gastrointestinal: Positive for constipation (chronic - taking Miralax). Negative for nausea and vomiting. All other systems reviewed and are negative. Objective BP 130/82 Pulse 87 Temp 36.9 ?C (98.5 ?F) (Temporal) Ht 172.7 cm (5' 8) Wt 82.8 kg (182 lb 9.6 oz) SpO2 99% BMI 27.76 kg/m? Physical Exam Vitals and nursing note reviewed. Cardiovascular: Rate and Rhythm: Normal rate and regular rhythm. Pulmonary: Effort: Pulmonary effort is normal. Breath sounds: Normal breath sounds. 1. Constipation, unspecified constipation type (K59.00) - History of chronic constipation; recent colonoscopy revealed diverticulosis, internal hemorrhoids, and a 3 mm polyp in the ascending colon, which was removed. - Advised to maintain adequate fiber intake and continue taking Metamucil as recommended by gastroenterology. - Reviewed current medications and clarified that only one sucralfate 1g BID prescription should be taken at a time, not both. - Advised to follow up with gastroenterology for further recommendations and pathology results. 2. Primary hypertension (I10) - Blood pressure today 130/82, well controlled. - Continue lisinopril-hydrochlorothi azide 20/12.5 mg daily and amlodipine 10 mg daily as prescribed. 3. Hyperlipidemia, unspecified hyperlipidemia type (E78.5) - Continue rosuvastatin 20 mg daily as prescribed. RTC LIMA Chaudhary MD Recording using [employer] software for draft documentation of the visit was discussed with the patient/authorized hospital insurance representative; all questions welcomed and answered. Patient/authorized hospital insurance representative agreed to proceed Referring Provider: SELF [200] Allergies As of Date: 05/08/2025 (No Known Allergies) Date Reviewed: 05/08/2025 Reviewed by: Asha Francisco MA - Fully Assessed Reason for Visit: Medication Follow-up [270] Cmt: WANT TO MAKE SURE HE'S TAKING ALL THE RIGHT MEDS Primary Visit Diagnosis:Constipation, unspecified constipation type [K59.00] Other Visit Diagnoses:Primary hypertension [I10] Hyperlipidemia, unspecified hyperlipidemia type [E78.5] Prescriptions as of 05/08/2025 - peg 3350-Electrolytes (GOLYTELY) 236-22.74-6.74 -5.86 gram suspension Refer to printed prep instructions from your provider. - metoprolol succinate ER (TOPROL XL) 25 mg 24 hr tablet Take 0.5 tablets by mouth once daily. - lisinopril-hydroCHLOROthi azide (ZESTORETIC) 20-12.5 mg per tablet Take 1 tablet by mouth once daily. - albuterol HFA (VENTOLIN HFA) 90 mcg/actuation inhaler Inhale 2 puffs as instructed every 4 hours as needed for wheezing/shortness of breath. - sucralfate (CARAFATE) 1 gram tablet Take 1 tablet by mouth every 12 hours. - famotidine (PEPCID) 40 mg tablet Take 40 mg by mouth daily at bedtime. - amLODIPine (NORVASC) 10 mg tablet Take 1 tablet by mouth once daily. - aspirin, enteric coated (ASPIRIN, ENTERIC COATED) 81 mg EC tablet Take 1 tablet by mouth once daily. - rosuvastat (more content not included)... Normal [facility] CBC W Auto Differential pane l (Bld)on 04-30-2025 Basophils (Bld) [#/Vol] 0.06 10*3/uL Normal <0.11 [facility] Comment on above: Order Comment: Speci men Type: BLOOD SPECIMENOrdering Facility: [facility] Address: [address] [place] [address] Performed By: #### 5 7021-8 ####[facility] [id number] [place] [address] [place] Basophils/100 WBC (Bld) 0.6 % Normal [facility] Comment on above: Order Comment: Speci men Type: BLOOD SPECIMENOrdering Facility: [facility] Address: [address] [place] [address] Performed By: #### 5 7021-8 ####[facility] [id number] [place] [address] [place] Differential cell count method Nom (Bld) Auto Normal [facility] Comment on above: Order Comment: Speci men Type: BLOOD SPECIMENOrdering Facility: [facility] Address: [address] [place] [address] Performed By: #### 5 7021-8 ####[facility] [id number] [place] [address] [place] Eosinophils (Bld) [#/Vol] 0.14 10*3/uL Normal <0.46 [facility] Comment on above: Order Comment: Speci men Type: BLOOD SPECIMENOrdering Facility: [facility] Address: [address] [place] [address] Performed By: #### 5 7021-8 ####[facility] [id number] [place] [address] [place] Eosinophils/100 WBC (Bld) 1.4 % Normal [facility] Comment on above: Order Comment: Speci men Type: BLOOD SPECIMENOrdering Facility: [facility] Address: [address] [place] [address] Performed By: #### 5 7021-8 ####[facility] [id number] [place] [address] [place] Erythrocyte distribution width (RBC) [Ratio] 16.8 % High 11.5-15.0 [facility] Comment on above: Order Comment: Speci men Type: BLOOD SPECIMENOrdering Facility: [facility] Address: [address] [place] [address] Performed By: #### 5 7021-8 ####[facility] [id number] [place] [address] [place] Hematocrit (Bld) [Volume fraction] 36.5 % Low 39.0-51.0 [facility] Comment on above: Order Comment: Speci men Type: BLOOD SPECIMENOrdering Facility: [facility] Address: [address] [place] [address] Performed By: #### 5 7021-8 ####[facility] [id number] [place] [address] [place] Hemoglobin (Bld) [Mass/Vol] 10.4 g/dL Low 13.0-17.0 [facility] Comment on above: Order Comment: Speci men Type: BLOOD SPECIMENOrdering Facility: [facility] Address: [address] [place] [address] Performed By: #### 5 7021-8 ####[facility] [id number] [place] [address] [place] Immature granulocytes (Bld) [#/Vol] 0.03 10*3/uL Normal <0.10 [facility] Comment on above: Order Comment: Speci men Type: BLOOD SPECIMENOrdering Facility: [facility] Address: [address] [place] [address] Performed By: #### 5 7021-8 ####[facility] [id number] [place] [address] [place] Immature granulocytes/100 WBC (Bld) 0.3 % Normal [facility] Comment on above: Order Comment: Speci men Type: BLOOD SPECIMENOrdering Facility: [facility] Address: [address] [place] [address] Performed By: #### 5 7021-8 ####[facility] [id number] [place] [address] [place] Lymphocytes (Bld) [#/Vol] 2.22 10*3/uL Normal 1.00-4.00 [facility] Comment on above: Order Comment: Speci men Type: BLOOD SPECIMENOrdering Facility: [facility] Address: [address] [place] [address] Performed By: #### 5 7021-8 ####[facility] [id number] [place] [address] [place] Lymphocytes/100 WBC (Bld) 22.8 % Normal [facility] Comment on above: Order Comment: Speci men Type: BLOOD SPECIMENOrdering Facility: [facility] Address: [address] [place] [address] Performed By: #### 5 7021-8 ####[facility] [id number] [place] [address] [place] MCH (RBC) [Entitic mass] 21.1 pg Low 26.0-34.0 [facility] Comment on above: Order Comment: Speci men Type: BLOOD SPECIMENOrdering Facility: [facility] Address: [address] [place] [address] Performed By: #### 5 7021-8 ####[facility] [id number] [place] [address] [place] MCHC (RBC) [Mass/Vol] 28.5 g/dL Low 30.5-36.0 [facility] Comment on above: Order Comment: Speci men Type: BLOOD SPECIMENOrdering Facility: [facility] Address: [address] [place] [address] Performed By: #### 5 7021-8 ####[facility] [id number] [place] [id number] [place] MCV (RBC) [Entitic vol] 73.9 fL Low 80.0-100.0 [facility] Comment on above: Order Comment: Speci men Type: BLOOD SPECIMENOrdering Facility: [facility] Address: [address] [place] [address] Performed By: #### 5 7021-8 ####[facility] [id number] [place] [id number] [place] Monocytes (Bld) [#/Vol] 0.79 10*3/uL Normal <0.87 [facility] Comment on above: Order Comment: Speci men Type: BLOOD SPECIMENOrdering Facility: [facility] Address: [address] [place] [address] Performed By: #### 5 7021-8 ####[facility] [id number] [facility] [place] [address] [place] Monocytes/100 WBC (Bld) 8.1 % Normal [facility] Comment on above: Order Comment: Speci men Type: BLOOD SPECIMENOrdering Facility: [facility] Address: [address] [place] [address] Performed By: #### 5 7021-8 ####[facility] [id number] [facility] [place] [address] [place] Neutrophils (Bld) [#/Vol] 6.51 10*3/uL Normal 1.45-7.50 [facility] Comment on above: Order Comment: Speci men Type: BLOOD SPECIMENOrdering Facility: [facility] Address: [address] [place] [address] Performed By: #### 5 7021-8 ####[facility] [id number] [facility] [address], [place] [address] [place] Neutrophils/100 WBC (Bld) 66.8 % Normal [facility] Comment on above: Order Comment: Speci men Type: BLOOD SPECIMENOrdering Facility: [facility] Address: [address] [place] [address] Performed By: #### 5 7021-8 ####[facility] [id number] [place] [address] [place] Nucleated RBC (Bld) [#/Vol] 10*3/uL Normal <0.01 [facility] Comment on above: Order Comment: Speci men Type: BLOOD SPECIMENOrdering Facility: [facility] Address: [address] [place] [address] Performed By: #### 5 7021-8 ####[facility] [id number] [place] [address] [place] Nucleated RBC/100 WBC (Bld) [Ratio] 0.0 /100 WBC Normal [facility] Comment on above: Order Comment: Speci men Type: BLOOD SPECIMENOrdering Facility: [facility] Address: [address] [place] [address] Performed By: #### 5 7021-8 ####[facility] [id number] [place] [address] [place] Platelet mean volume (Bld) [Entitic vol] 10.2 fL Normal 9.0-12.7 [facility] Comment on above: Order Comment: Speci men Type: BLOOD SPECIMENOrdering Facility: [facility] Address: [address] [place] [address] Performed By: #### 5 7021-8 ####[facility] [id number] [place] [address] [place] Platelets (Bld) [#/Vol] 428 10*3/uL High 150-400 [facility] Comment on above: Order Comment: Speci men Type: BLOOD SPECIMENOrdering Facility: [facility] Address: [address] [place] [address] Performed By: #### 5 7021-8 ####[facility] [id number] [place] [address] [place] RBC (Bld) [#/Vol] 4.94 10*6/uL Normal 4.20-6.00 [facility] Comment on above: Order Comment: Speci men Type: BLOOD SPECIMENOrdering Facility: [facility] Address: [address] [place] [address] Performed By: #### 5 7021-8 ####[facility] [id number] [place] [id number] [place] WBC (Bld) [#/Vol] 9.75 10*3/uL Normal 3.70-11.00 [facility] Comment on above: Order Comment: Speci men Type: BLOOD SPECIMENOrdering Facility: [facility] Address: [address] [place] [address] Performed By: #### 5 7021-8 ####[facility] [id number] [place] [id number] [place] CNOVon 04-30-2025 CNOV Office Visit ([facility] ) ----- TOMCASH A ([id number]) 1965 M [facility] Date Time Provider Department 04/30/25 1:30 PM AWILDA GARCIA [facility] During your visit today, we recorded the following information about you: Temperature Pulse Blood pressure Weight 97.3 degrees 77/minute 136/92 81.7 kg Height 1.727 m Awilda Garcia MD 04/30/2025 2:15 PM Signed Subjective Cash Michel is a 60 year old male. The history is provided by the patient. Blood Pressure This is a chronic problem. The current episode started more than 1 year ago. The problem is unchanged. The problem is controlled. Risk factors for coronary artery disease include family history and dyslipidemia. Past treatments include YURI inhibitors, calcium channel blockers, beta blockers and diuretics. The current treatment provides significant improvement. There are no compliance problems. Review of Systems All other systems reviewed and are negative. Past Medical history: PAST MEDICAL HISTORY Diagnosis Date Asthma (HCC) Body mass index 26.0-26.9, adult Breast lump on left side at 11 o'clock position Breast pain CAD (coronary artery disease) Chest pain syndrome Intermittent chest pain for long time Cholecystolithiasis Dysphagia Gallstones Gastroesophageal reflux disease Hearing loss in right ear Hemoptysis Hiatal hernia HTN (hypertension) Impingement syndrome of left shoulder Mixed hyperlipidemia Rib pain Shortness of breath Steatosis, liver Transient loss of consciousness Urinary hesitancy Past Surgical History: PAST SURGICAL HISTORY Procedure Laterality Date EGD W/O [facility] SPEC VARICIES INJ 04/25/2023 Gastric antral body type mucosa with mild chronic inactive gastritis, 5cm hiatal hernia RIGHT HEART CATHERIZATION 11/07/2003 Family History: FAMILY HISTORY Problem Relation Age of Onset Diabetes Mother Heart disease Mother other (CHF) Mother Hypertension Mother Kidney Disease Mother Heart disease Father 83 [place] at age 83 Hypertension Father Parkinson?s Disease Brother Social History: Social History Tobacco Use Smoking status: Never Smokeless tobacco: Never Vaping Use Vaping status: Never Used Substance Use Topics Alcohol use: Never Drug use: Never Current Medications: metoprolol succinate ER (TOPROL XL) 25 mg 24 hr tablet, Take 0.5 tablets by mouth once daily., Disp: 15 tablet, Rfl: 0 lisinopril-hydroCHLOROthi azide (ZESTORETIC) 20-12.5 mg per tablet, Take 1 tablet by mouth once daily., Disp: 30 tablet, Rfl: 0 albuterol HFA (VENTOLIN HFA) 90 mcg/actuation inhaler, Inhale 2 puffs as instructed every 4 hours as needed for wheezing/shortness of breath., Disp: 1 each, Rfl: 1 sucralfate (CARAFATE) 1 gram tablet, Take 1 tablet by mouth every 12 hours., Disp: , Rfl: amLODIPine (NORVASC) 10 mg tablet, Take 1 tablet by mouth once daily., Disp: 90 tablet, Rfl: 3 aspirin, enteric coated (ASPIRIN, ENTERIC COATED) 81 mg EC tablet, Take 1 tablet by mouth once daily., Disp: 90 tablet, Rfl: 3 rosuvastatin (CRESTOR) 20 mg tablet, Take 1 tablet by mouth daily at bedtime., Disp: 90 tablet, Rfl: 3 triamcinolone acetonide (KENALOG) 0.5 % cream, Apply 1 application to affected area two times a day., Disp: 45 g, Rfl: 1 famotidine (PEPCID) 40 mg tablet, Take 40 mg by mouth daily at bedtime. (Patient not taking: Reported on 04/30/2025), Disp: , Rfl: No facility-administered encounter medications on file as of 04/30/2025. Allergies: ALLERGIES No Known Allergies Vitals: BP 136/92 Pulse 77 Temp (Src) 97.3 (Temporal) Ht 5' 8 (1.73m) Wt 180 lb 1.9 oz (81.7kg) SpO2 99% BMI 27.39 kg/(m2). Objective BP 136/92 (BP Site: Right Arm, BP Position: Sitting, BP Cuff Size: Regular Adult) Pulse 77 Temp 36.3 ?C (97.3 ?F) (Temporal) Ht 172.7 cm (5' 8) Wt 81.7 kg (180 lb 1.9 oz) SpO2 99% BMI 27.39 kg/m? Physical Exam Constitutional: General: He is not in acute distress. HENT: Head: Normocephalic and atraumatic. Eyes: Conjunctiva/sclera: Conjunctivae normal. Pupils: Pupils are equal, round, and reactive to light. Cardiovascular: Rate and Rhythm: Normal rate and regular rhythm. Heart sounds: Normal heart sounds. No murmur heard. No friction rub. No gallop. Pulmonary: Effort: Pulmonary effort is normal. No respiratory distress. Breath sounds: Normal breath sounds. No wheezing or rales. Chest: Chest wall: No tenderness. Abdominal: General: Bowel sounds are normal. There is no distension. Palpations: Abdomen is soft. There is no mass. Tenderness: There is no abdominal tenderness. There is no guarding or rebound. Musculoskeletal: Cervical back: Normal range of motion and neck supple. Neurological: General: No focal deficit present. Mental Status: He is alert and oriented to person, place, and time. Psychiatric: Mood and Affect: Mood normal. Beh (more content not included)... Normal [facility] Comprehensive metabolic 2000 panelon 04-30-2025 Albumin [Mass/Vol] 4.2 g/dL Normal 3.9-4.9 [facility] Comment on above: Order Comment: Speci men Type: BLOOD SPECIMENOrdering Facility: [facility] Address: [address] [place] [address] Performed By: #### 2 4331-1, 86914-3 ####[facility] [id number] [address] [place] [address] [place] ALP [Catalytic activity/Vol] 57 U/L Normal 38-113 [facility] Comment on above: Order Comment: Speci men Type: BLOOD SPECIMENOrdering Facility: [facility] Address: [address] [place] [address] Performed By: #### 2 4331-1, ####[facility] [id number] [facility] [address] [place] [address] [place] ALT [Catalytic activity/Vol] 17 U/L Normal 10-54 [facility] Comment on above: Order Comment: Speci men Type: BLOOD SPECIMENOrdering Facility: [facility] Address: [address] [place] [address] Performed By: #### 2 4331-1, ####[facility] [id number] [place] [id number] [place] Anion gap [Moles/Vol] 11 mmol/L Normal 8-15 [facility] Comment on above: Order Comment: Speci men Type: BLOOD SPECIMENOrdering Facility: [facility] Address: [address] [place] [address] Performed By: #### 2 4331-1, ####[facility] [id number] [facility] [address], [facility] [place] AST [Catalytic activity/Vol] 20 U/L Normal 14-40 [facility] Comment on above: Order Comment: Speci men Type: BLOOD SPECIMENOrdering Facility: [facility] Address: [address] [place] [address] Performed By: #### 2 4331-1, ####[facility] [id number] [address] [place] [address] [place] Bilirubin [Mass/Vol] 0.4 mg/dL Normal 0.2-1.3 [facility] Comment on above: Order Comment: Speci men Type: BLOOD SPECIMENOrdering Facility: [facility] Address: [address] [place] [address] Performed By: #### 2 4331-1, ####[facility] [id number] [address] [address] [place] Calcium [Mass/Vol] 9.3 mg/dL Normal 8.5-10.2 [facility] Comment on above: Order Comment: Speci men Type: BLOOD SPECIMENOrdering Facility: [facility] Address: [address] [place], [place] [address] Performed By: #### 2 4331-1, ####[facility] [id number] [address] [address] [place] Chloride [Moles/Vol] 105 mmol/L Normal 98-107 [facility] Comment on above: Order Comment: Speci men Type: BLOOD SPECIMENOrdering Facility: [facility] Address: [address] [place], [place] [address] Performed By: #### 2 4331-1, ####[facility] [id number] [place] [id number] [place] CO2 [Moles/Vol] 23 mmol/L Normal 22-30 [facility] Comment on above: Order Comment: Speci men Type: BLOOD SPECIMENOrdering Facility: [facility] Address: [address] [place] [address] Performed By: #### 2 4331-1, 01442-1 ####[facility] [id number] [address] [address] [place] Creatinine [Mass/Vol] 0.99 mg/dL Normal 0.73-1.22 [facility] Comment on above: Order Comment: Speci men Type: BLOOD SPECIMENOrdering Facility: [facility] Address: [address] [place] [address] Performed By: #### 2 4331-1, 45744-3 ####[facility] [id number] [place] [address] [place] eGFRcr SerPlBld CKD-EPI 2020 86 mL/min/1.73m??? Normal >=60 [facility] Comment on above: Order Comment: Carlo howard Type: BLOOD SPECIMENOrdering Facility: [facility] Address: [address] [place] [address] Result Comment: Marie mated Glomerular Filtration Rate (eGFR) is calculated using the 2020 CKD-EPI creatinine equation. This equation utilizes serum creatinine, sex, and age as parameters. The creatinine assay has traceable calibration to isotope dilution-mass spectrometry. Refer to KDIGO guidelines for clinical interpretation. In patients with unstable renal function, e.g. those with acute kidney injury, the eGFR may not accurately reflect actual GFR. Performed By: #### 2 4331-1, 42652-7 ####[facility] [id number] [place] [address] [place] Glucose [Mass/Vol] 88 mg/dL Normal 74-99 [facility] Comment on above: Order Comment: Carlo howard Type: BLOOD SPECIMENOrdering Facility: [facility] Address: [address] [place] [address] Result Comment: The [place] [employer] (ADA) provides guidance for cutoff values for fasting glucose and random glucose. The ADA defines fasting as no caloric intake for at least 8 hours. Fasting plasma glucose results between 100 to 125 mg/dL indicate increased risk for diabetes (prediabetes). Fasting plasma glucose results greater than or equal to 126 mg/dL meet the criteria for diagnosis of diabetes. In the absence of unequivocal hyperglycemia, results should be confirmed by repeat testing. In a patient with classic symptoms of hyperglycemia or hyperglycemic crisis, random plasma glucose results greater than or equal to 200 mg/dL meet the criteria for diagnosis of diabetes. Reference: Standards of Medical Care in Diabetes 2016, [place] [employer] Association. Diabetes Care. 2016.39(Suppl 1). Performed By: #### 2 4331-1, 30604-4 ####[facility] [id number] [address] [place] [address] [place] Potassium [Moles/Vol] 4.6 mmol/L Normal 3.7-5.1 [facility] Comment on above: Order Comment: Speci men Type: BLOOD SPECIMENOrdering Facility: [facility] Address: [address] [place] [address] Performed By: #### 2 4331-1, 60902-2 ####[facility] [id number] [address] [address] [place] Protein [Mass/Vol] 7.6 g/dL Normal 6.3-8.0 [facility] Comment on above: Order Comment: Speci men Type: BLOOD SPECIMENOrdering Facility: [facility] Address: [address] [place] [address] Performed By: #### 2 4331-1, 55318-4 ####[facility] [id number] [place] [id number] [place] Sodium [Moles/Vol] 139 mmol/L Normal 136-144 [facility] Comment on above: Order Comment: Speci men Type: BLOOD SPECIMENOrdering Facility: [facility] Address: [address] [place] [address] Performed By: #### 2 4331-1, 22704-3 ####[facility] [id number] [place] [id number] [place] Urea nitrogen [Mass/Vol] 16 mg/dL Normal 9-24 [facility] Comment on above: Order Comment: Speci men Type: BLOOD SPECIMENOrdering Facility: [facility] Address: [address] [place] [address] Performed By: #### 2 4331-1, 82704-8 ####[facility] [id number] [address] [address] [place] HbA1c (Bld)on 04-30-2025 Average glucose Estimated from glycated hemoglobin (Bld) [Mass/Vol] 120 mg/dL Normal [facility] Comment on above: Order Comment: Speci men Type: BLOOD SPECIMENOrdering Facility: [facility] Address: [address] [place] [address] Result Comment: eAG: (Estimated average glucose) is a calculated value from HgbA1c and is hospital insurance representative of the average blood glucose level in the last 2-3 month period. Performed By: #### 5 5454-3 ####[facility] [id number] [place] [address] [place] HbA1c (Bld) [Mass fraction] 5.8 % High 4.3-5.6 [facility] Comment on above: Order Comment: Carlo howard Type: BLOOD SPECIMENOrdering Facility: [facility] Address: [address] [place] [address] Result Comment: [place] Diabetes Association guidelines indicate that patients with HgbA1c in the range 5.7-6.4% are at increased risk for development of diabetes, and intervention by lifestyle modification may be beneficial. HgbA1c greater or equal to 6.5% is considered diagnostic of diabetes. Performed By: #### 5 5454-3 ####[facility] [id number] [place] [address] [place] Lipid 1996 panelon 5 Cholesterol [Mass/Vol] 107 mg/dL Normal <200 [facility] Comment on above: Order Comment: Carlo men Type: BLOOD SPECIMENOrdering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 Jeffery on 03-26-2025 Globulin (S) [Mass/Vol] 3.6 g/dL 2.2-4.2 [facility] Serum glucose measurement (m ass/volume)Ordered By: Gavino Jeffery on 03-26-2025 Glucose [Mass/Vol] 105 mg/dL High 70-99 [facility] Serum or plasma alanine barahona otransferase (ALT) measurementOrdered By: Gavino Jeffery on 03-26-2025 ALT [Catalytic activity/Vol] 11 U/L <47 [facility] Serum or plasma albumin zunilda urement (mass/volume)Ordered By: Gavino Jeffery on 03-26-2025 Albumin [Mass/Vol] 3.8 g/dL 3.4-4.8 [facility] Serum or plasma albumin/glob ulin mass ratioOrdered By: Gavino Jeffery on 03-26-2025 Albumin/Globulin [Mass ratio] 1.1 {ratio} 0.9-2.4 [facility] Serum or plasma alkaline aditya sphatase measurementOrdered By: Gavino Jeffery on 03-26-2025 ALP [Catalytic activity/Vol] 63 U/L 40-129 [facility] Serum or plasma calcium zunilda urement (mass/volume)Ordered By: Gavino Jeffery on 03-26-2025 Calcium [Mass/Vol] 9.7 mg/dL 7.6-11.0 [facility] Serum or plasma urea nitroge n measurement (mass/volume)Ordered By: Gavino Jeffery on 03-26-2025 Urea nitrogen [Mass/Vol] 16 mg/dL 4-19 [facility] Sodium levelOrdered By: Jonny Jeffery on 03-26-2025 Sodium [Moles/Vol] 137 mmol/L 133-145 [facility] Squamous epithelial cells de tection in urine sediment by light microscopyOrdered By: Gavino Jeffery on 03-26-2025 Epithelial cells.squamous LM Ql (Urine sed) 0 SEEN /hpf 0-5 [facility] Total proteinOrdered By: Jonn Jeffery on 03-26-2025 Protein [Mass/Vol] 7.4 g/dL 5.9-8.4 [facility] Troponin T.cardiac [Mass/vol ume] in Serum or Plasma by High sensitivity methodOrdered By: Gavino Jeffery on 03-26-2025 Troponin T.cardiac High sensitivity method [Mass/Vol] < 6 ng/L <22 [facility] Troponin T.cardiac High sensitivity method [Mass/Vol] < 6 ng/L <22 [facility] Urinalysis, Completeon 03-26 BACTERIA 0 SEEN Normal None Seen [facility] Comment on above: Order Comment: BRODY CTOR TO SPECIFY Performed By: #### L 500.2500, L100.0100 #### [facility] [address] [place], [address] EPI,SQUAMOUS 0 SEEN Normal 0-5 [facility] Comment on above: Order Comment: BRODY CTOR TO SPECIFY Performed By: #### L 500.2500, L100.0100 #### [facility] [address] [place], [address] Mucus Ql (Urine sed) 0 SEEN Normal [facility] Comment on above: Order Comment: BRODY CTOR TO SPECIFY Performed By: #### L 500.2500, L100.0100 #### [facility] [address] [place], [address] RBC 0 SEEN Normal 0-5 [facility] Comment on above: Order Comment: BRODY CTOR TO SPECIFY Performed By: #### L 500.2500, L100.0100 #### [facility] [address] [place], [address] WBC 0 SEEN Normal 0-5 [facility] Comment on above: Order Comment: BRODY CTOR TO SPECIFY Performed By: #### L 500.2500, L100.0100 #### [facility] [address] [place], [address] Urine clarityOrdered By: Jonn Jeffery on 03-26-2025 Clarity (U) Clear Clear [facility] Urine color determinationOrd ered By: Gavino Jeffery on 03-26-2025 Color (U) Yellow Yellow [facility] Urine cultureOrdered By: Jonn Jeffery on 03-26-2025 Bacteria identified Cx Nom (U) Culture exhibits no growth. [facility] Urine glucose detectionOrder ed By: Gavino Jeffery on 03-26-2025 Glucose Ql (U) Normal mg/dl Normal [facility] Urine leukocyte esterase det ection by dipstickOrdered By: Gavino Jeffery on 03-26-2025 Leukocyte esterase Test strip Ql (U) Negative Negative [facility] Urine pHOrdered By: Gavino lam on 03-26-2025 pH (U) 6.0 [pH] 5.0 - 8.0 [facility] Urine sediment bacteria coun t by microscopy (number/high power field)Ordered By: Gavino Jeffery on 03-26-2025 Bacteria LM.HPF (Urine sed) [#/Area] 0 /[HPF] None Seen [facility] Urine specific gravity measu rementOrdered By: Gavino Jeffery on 03-26-2025 Specific gravity (U) [Rel density] 1.015 1.002-1.03 0 [facility] Urine urobilinogen measureme ntOrdered By: Gavino Jeffery on 03-26-2025 Urobilinogen Ql (U) Normal mg/dl Normal [facility] White blood cell (WBC) count Ordered By: Gavino Jeffery on 03-26-2025 WBC (Bld) [#/Vol] 9.7 10*3/uL 4.4-11.0 [facility] White blood cell countOrdere d By: Gavino Jeffery on 03-26-2025 White blood cell count 0 SEEN /hpf 0-5 [facility] CNPNon 12-04-2024 CNPN Telephone (PHIL) ----- CASH MICHEL ([id number]) 1965 M [facility] Date Time Provider Department 12/04/24 GEORGE NORIEGA During your visit today, we recorded the following information about you: Damari Cheney 12/04/2024 1:29 PM Signed Cash is calling George Noriega MD today asking for a call to clarify which medications he needs to be taking. Cash states that he thinks Dr. Noriega wanted him to stop taking one of his heart pills, but he isn't sure Please call to advise Patient has been identified by name and birthdate. Duration of symptoms: N/A Person calling: self Call patient at: on cell [phone] (home) [phone] (cell) Was an appointment scheduled: No Closing statement: Results or non-symptom based questions: Thank you for calling [facility], your call will be returned within the next business day. Kate Espinosa, IVAN 12/04/2024 4:25 PM Signed Attempted to call pt. Phone went to [employer] however wouldn't accept a voice message. Will send mychart. Noriega 12/03/24 IMPRESSION: Mr. Michel is a 59 year old male who initially presented with typical chest pain most likely stable coronary artery disease in setting of hypertension, which had improved with control of his hypertension on 2 antianginals, but now with recurrence despite antianginal therapy. Cardiac catheterization did not reveal any significant CAD. 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 Monitor for bradycardia, lightheadedness, dizziness, hypotension, hyperglycemia - Continue with amlodipine 10 mg p.o. daily as second antianginal and goal blood pressure less than 130/80 - Continue with hydrochlorothiazide/lisin opril combo pill as prescribed goal blood pressure less than 130/80 - Continue aspirin 81 mg p.o. daily and high intensity statin. Patient instructed to monitor for myalgias, right upper quadrant pain, urinary discoloration and bleeding diatheses Valorie Argueta 12/05/2024 8:36 AM Signed Patient called back. Relayed message below. No further questions. Allergies As of Date: 12/04/2024 (No Known Allergies) Date Reviewed: 12/03/2024 Reviewed by: David Jeffery II, IVAN - Fully Assessed Prescriptions as of 12/05/2024 - sucralfate (CARAFATE) 1 gram tablet Take 1 tablet by mouth every 12 hours. - famotidine (PEPCID) 40 mg tablet Take 40 mg by mouth daily at bedtime. - amLODIPine (NORVASC) 10 mg tablet Take 1 tablet by mouth once daily. - albuterol HFA (VENTOLIN HFA) 90 mcg/actuation inhaler Inhale 2 Puffs as instructed every 4 hours as needed for wheezing/shortness of breath. - aspirin, enteric coated (ASPIRIN, ENTERIC COATED) 81 mg EC tablet Take 1 tablet by mouth once daily. - lisinopril-hydroCHLOROthi azide (ZESTORETIC) 20-12.5 mg per tablet Take 1 tablet by mouth once daily. - metoprolol succinate ER (TOPROL XL) 25 mg 24 hr tablet Take 0.5 tablets by mouth once daily. - rosuvastatin (CRESTOR) 20 mg tablet Take 1 tablet by mouth daily at bedtime. - triamcinolone acetonide (KENALOG) 0.5 % cream Apply 1 application to affected area two times a day. Problem List As Of Date 12/04/2024 Noted Resolved HLD (hyperlipidemia) [E78.5] 07/13/2022 Benign prostatic hyperplasia without lower urin*07/13/2022 Vitamin D deficiency [E55.9] 07/13/2022 Neck pain [M54.2] 01/11/2023 Atherosclerosis of chilkat arteries of extremity*02/15/2023 BMI 26.0-26.9,adult [Z68.26] 04/07/2023 Anxiety [F41.9] 04/07/2023 Cholelithiasis without cholecystitis [K80.20] 04/07/2023 Asthma [J45.909] 04/07/2023 Breast lump on left side at 11 o'clock position*04/07/2023 Cardiomyopathy (HCC) [I42.9] 04/07/2023 05/18/2023 Dysphagia [R13.10] 04/07/2023 Transient loss of consciousness [R55] 04/07/2023 Steatosis of liver [K76.0] 04/07/2023 Shortness of breath [R06.02] 04/07/2023 Right upper quadrant abdominal pain [R10.11] 05/10/2022 Rib pain [R07.81] 04/07/2023 Photokeratitis [H16.139] 04/07/2023 Palpitations [R00.2] 04/07/2023 Olecranon bursitis of left elbow [M70.22] 04/07/2023 Non-smoker [Z78.9] 04/07/2023 Muscle spasm [M62.838] 04/07/2023 Impingement syndrome of left shoulder [M75.42] 04/07/2023 Gastroesophageal reflux disease with hiatal her*04/07/2023 Hemoptysis [R04.2] 04/07/2023 Hypertension [I10] 02/10/2023 Hearing loss of right ear [H91.91] 04/07/2023 Dysuria [R30.0] 04/07/2023 Dizziness [R42] 04/07/2023 Contusion of chest wall [S20.219A] 04/07/2023 Closed head injury [S09.90XA] 04/07/2023 Constipation [K59.00] 04/07/2023 Carotid artery stenosis [I65.29] 05/18/2023 Restrictive pattern present on pulmonary funct (more content not included)... Normal [facility] CNOVon 12-03-2024 CNOV Office Visit (CARINF ) ----- CASH MICHEL ([id number]) 1965 M [facility] Date Time Provider Department 12/03/24 3:00 PM GEORGE NORIEGA CARINF During your visit today, we recorded the following information about you: Pulse Blood pressure Weight Height 87/minute 128/96 81.3 kg 1.727 m George Noriega MD 12/03/2024 3:33 PM Signed [facility] [place] [facility] Department of Cardiovascular Medicine SECTION OF INTERVENTIONAL CARDIOLOGY OUTPATIENT VISIT DATE 12/03/2024 OUTPATIENT VISIT TYPE Established PRIMARY CARE PHYSICIAN: Awilda Garcia [address] [place] [address] REFERRING PHYSICIAN: Awilda Garcia [address] [facility] [address] CHIEF COMPLAINT: Patient presents with: Consult HISTORY OF PRESENT ILLNESS: Prior Visit 02/15/2023: Mr. Michel is a 57 year old male who presents today for evaluation of chest pain. Patient notes that every time he exerts himself he gets short of breath and has chest pain that radiates down the left jaw and left arm and is completely alleviated with rest after 10 to 15 minutes. The patient cannot accurately state when the symptom started, but he states that he has had the symptoms for months without having worsening or increasing frequency recently. Patient denies any chest pain at rest, diaphoresis, nausea or vomiting. He also notes that he has Palmer class III intermittent claudication worse in the left leg than the right. Prior Visit 05/18/2023: The patient reports marked improvement in his symptoms since being started on 2 antianginals. He denies any further chest heaviness with exertion. The patient also underwent nuclear stress testing that did not show evidence of ischemia and echocardiogram showed preserved ejection fraction without wall motion abnormalities. Furthermore his SCOTT PVR did not show evidence of peripheral vascular disease and his carotid duplex showed minimal carotid artery stenosis. Risk factors for coronary artery disease hypertension Prior Visit 07/18/2024: Patient reports two episodes of chest pain with exertion lasting 5 minutes despite dual antianginal therapy. Current Visit 12/03/2024: Underwent cardiac catheterization that did not reveal significant CAD, continues to have non specific chest pain. He denies orthopnea, PND, palpitations, lightheadedness, syncope, leg swelling, cough, and wheezing. Diet / Nutrition: Reports heart healthy diet Weight: no change since last visit Exercise: As above. SOCIAL HISTORY Social History Tobacco Use Smoking status: Never Smokeless tobacco: Never Substance Use Topics Alcohol use: Never Drug use: Never ALLERGIES: ALLERGIES No Known Allergies MEDICATIONS: lisinopril-hydroCHLOROthi azide (ZESTORETIC) 20-12.5 mg per tablettake 1 tablet by mouth once dailyDisp: 90 tabletRfl: 2 HYDROcodone-acetaminophen (NORCO) 5-325 mg per tabletTake by mouth.Disp: Rfl: naproxen (NAPROSYN) 500 mg tabletTake 500 mg by mouth twice daily.Disp: Rfl: amLODIPine (NORVASC) 10 mg [id number] mg.Disp: Rfl: omeprazole (PRILOSEC) 20 mg capsuleTake by mouth.Disp: Rfl: fluticasone-salmeterol (ADVAIR, WIXELA) 250-50 mcg/dose inhalerInhale as instructed.Disp: Rfl: acetaminophen (TYLENOL EXTRA STRENGTH ORAL)Take by mouth.Disp: Rfl: albuterol HFA (VENTOLIN HFA) 90 mcg/actuation inhalerInhale 2 Puffs as instructed every 4 hours as needed for Wheezing/Shortness of Breath.Disp: 1 InhalerRfl: 0 metoprolol succinate ER (TOPROL XL) 25 mg 24 hr tabletTake 0.5 tablets by mouth once daily.Disp: 45 tabletRfl: 3 REVIEW OF SYSTEMS: GENERAL: negative for: fevers, chills, and change in weight HEENT: negative for: headaches, hearing loss, difficulty swallowing, visual changes, nose bleeds, dentures, own teeth SKIN: rashes, lesions, and ulcers RESPIRATORY: SEE HPI CARDIOVASCULAR: See HPI GASTROINTESTINAL: negative for: abdominal pain, nausea, vomiting, difficulty or painful swallowing, and melanotic stools GENITOURINARY: negative for: dysuria, frequency, nocturia, and male potency MUSCULOSKELETAL: negative for: joint pain, joint swelling, muscle pain or myalgias, and pain with walking NEUROLOGIC: negative for: numbness, tingling, and sensation of pins and needles HEMATOLOGY: negative for: bruising easily, prolonged bleeding, anemia, and cancer ENDOCRINE: negative for: cold or heat intolerance, polyuria, polydipsia, goiter, diabetes, and thyroid disease PSYCH: negative for: sleep disturbance, mood disorders, and recent psychosocial stressors PHYSICAL EXAMINATION: 12/03/24 1459 BP: 128/96 BP Position: Sitting Pulse: 87 SpO2: 98% Weight: 81.3 kg (179 lb 3.7 oz) Height: 172.7 cm (5' 8) General: Well appearing, in no acute distress, speaking in complete sentences. Inapprop (more content not included)... Normal [facility] 12 Lead EKGon 11-11-2024 12 Lead EKG [facility] Cardiovascular Services [address] [place] [address] 12 Lead EKG 11/11/24 1336 MR#: [id number] Acct: [id number] Name: CASH MICHEL Rep #: [id number] : 1965 59 From: Mike Unger MD Attending Dr: Status: DEP ER Ordering Dr: Dawn Elizabeth MD Date: 11/11/24 Location: ED Sex: M C Admitted: Test Reason : GENERAL Blood Pressure : */* mmHG Vent. Rate : 81 BPM Atrial Rate : 81 BPM P-R Int : 150 ms QRS Dur : 88 ms QT Int : 406 ms P-R-T Axes : 39 -17 -5 degrees QTcB Int : 471 ms Normal sinus rhythm Minimal voltage criteria for LVH, may be normal variant ( R in aVL ) Borderline ECG Confirmed by Mike Unger ([id number]), editor continuity and script LUISA HARE ([id number]) on 11/12/2024 10:03:49 AM Referred By: Confirmed By: Mike Unger 11/12/24 1003 Date Mike Unger MD CC: SURGICAL SALES REPRESENTATIVE-C Shreya Cat; Dr. Dawn Elizabeth MD Signed Normal [facility] Abdomen/Pelvis W IV Cont ONL Yon 11-11-2024 Abdomen/Pelvis W IV Cont ONLY [facility] Imaging Services [address] [place] [address] Abdomen/Pelvis W IV Cont ONLY MR#: [id number] Acct: [id number] Name: CASH MICHEL Rep #: [id number] : 1965 M 59 From: Mike bailey MD PCP: TATYANA AnglinC Status: REG ER Study: Abdomen/Pelvis W IV Cont ONLY Date of Exam: Exam# [id number] Ordering Dr: Dawn Elizabeth MD PROCEDURE: ABDOMEN/PELVIS W IV CONT ONLY REASON FOR EXAM: Right-sided rib pain following cough. History of flu. Chronic cholecystitis. TECHNIQUE: Abdomen and pelvis CT with intravenous contrast. IV CONTRAST: 100 cc of Isovue 300. COMPARISON: None. FINDINGS: Lung bases: Minimal increased markings at the lung bases suggestive of atelectasis and/or scarring. Liver: Diffuse fatty infiltration. Gallbladder: Multiple small gallstones. Spleen: Unremarkable. Pancreas: Unremarkable. Adrenals: Unremarkable. Kidneys: Unremarkable. Bladder: Unremarkable. Reproductive Organs: Unremarkable. Bowel: Colonic diverticulosis without diverticulitis. Large hiatal hernia. Appendix: The appendix is not identified. There is no inflammatory process identified in the right lower quadrant to suggest appendicitis. Lymph nodes: No suspicious lymph node enlargement. Vasculature: Mild diffuse atherosclerotic calcifications are noted. Peritoneum / Retroperitoneum: No ascites. No free air. Bones: Degenerative changes of the spine. CT/Abdomen/Pelvis W IV Cont ONLY IMPRESSION: Multiple gallstones. Large hiatal hernia. Fatty infiltration of the liver. One or more dose reduction techniques were used (e.g., Automated exposure control, adjustment of the mA and/or kV according to patient size, use of iterative reconstruction technique). Reading Location: [place] [address] CC: ROBINA Cat; Dr. Dawn Elizabeth MD Landscape Gardener: Signed Normal [facility] Basic Metabolic Profile (BMP )on 11-11-2024 BUN/CRE 14.3 RATIO Normal 10-20 [facility] Comment on above: Performed By: #### L 500.2500, L100.0100 #### [facility] Laboratory [address] [place], [address] CA,Total 8.6 mg/dL Normal 8.5-10.1 [facility] Comment on above: Performed By: #### L 500.2500, L100.0100 #### [facility] [address] [place], [address] Chloride [Moles/Vol] 108 mmol/L High 98-107 [facility] Comment on above: Performed By: #### L 500.2500, L100.0100 #### [facility] [address] [place], [address] CO2 [Moles/Vol] 26.0 mmol/L Normal 21.0-32.0 [facility] Comment on above: Performed By: #### L 500.2500, L100.0100 #### [facility] [address] [place], [address] Creatinine [Mass/Vol] 1.05 mg/dL Normal 0.70-1.30 [facility] Comment on above: Result Comment: The validity of the calculated GFR GFRAA in patients over 70 years has not been determined. Clinical correlation is essential. Performed By: #### L 500.2500, L100.0100 #### [facility] [address] [place], [address] ECRCL 78.61 ml/min Normal [facility] Comment on above: Performed By: #### L 500.2500, L100.0100 #### [facility] [address] [place], [address] EST GFR - AA 92 mL/min Normal >60 [facility] Comment on above: Result Comment: Afri can Bermudian GFR Calc Performed By: #### L 500.2500, L100.0100 #### [facility] [address] [place], [address] GAP 6 Normal 5-15 [facility] Comment on above: Performed By: #### L 500.2500, L100.0100 #### [facility] [address] [place], [address] GFR/1.73 sq M.predicted among non-blacks MDRD (S/P/Bld) [Vol rate/Area] 76 mL/min/{1.73_m2} Normal >60 [facility] Comment on above: Result Comment: Non- GFR Calc Performed By: #### L 500.2500, L100.0100 #### [facility] [address] [place], [address] Glucose [Mass/Vol] 92 mg/dL Normal 74-106 [facility] Comment on above: Performed By: #### L 500.2500, L100.0100 #### [facility] [address] [place], [address] Potassium [Moles/Vol] 3.1 mmol/L Low 3.5-5.1 [facility] Comment on above: Performed By: #### L 500.2500, L100.0100 #### [facility] [address] [place], [address] Sodium [Moles/Vol] 140 mmol/L Normal 136-145 [facility] Comment on above: Performed By: #### L 500.2500, L100.0100 #### [facility] [address] [place], [address] Urea nitrogen [Mass/Vol] 15 mg/dL Normal 7-18 [facility] Comment on above: Performed By: #### L 500.2500, L100.0100 #### [facility] [address] [place], [address] CBC W/Diff, Automatedon 11-02 0-2024 Absolute Lymph 1.58 X10 3/uL Normal 0.83-4.51 [facility] Comment on above: Performed By: #### L 500.2500, L100.0100 #### [facility] [address] [place], [address] Absolute Neut 2.3 X10 3/uL Normal 2.0-7.7 [facility] Comment on above: Performed By: #### L 500.2500, L100.0100 #### [facility] [address] [place], [address] Basophils/100 WBC (Bld) 0.7 % Normal 0-1 [facility] Comment on above: Performed By: #### L 500.2500, L100.0100 #### [facility] [address] [place], [address] Eosinophils/100 WBC (Bld) 1.6 % Normal 0-5 [facility] Comment on above: Performed By: #### L 500.2500, L100.0100 #### [facility] [address] [place], [address] Erythrocyte distribution width (RBC) [Ratio] 15.9 % High 11.6-14.6 [facility] Comment on above: Performed By: #### L 500.2500, L100.0100 #### [facility] [address] [place], [address] Hematocrit (Bld) [Volume fraction] 34.7 % Low 40-54 [facility] Comment on above: Performed By: #### L 500.2500, L100.0100 #### [facility] [address] [place], [address] Hemoglobin (Bld) [Mass/Vol] 10.3 g/dL Low 13.0-16.5 [facility] Comment on above: Performed By: #### L 500.2500, L100.0100 #### [facility] [address] [place], [address] IG% 0.500 Normal 0.0-0.9 [facility] Comment on above: Result Comment: IG% - Immature Granulocytes (promyelocytes, myelocytes and metamyelocytes) > 1% indicates that a LEFT SHIFT is Present. Performed By: #### L 500.2500, L100.0100 #### [facility] [address] [place], [address] Lymphocytes/100 WBC (Bld) 35.6 % Normal 19-41 [facility] Comment on above: Performed By: #### L 500.2500, L100.0100 #### [facility] [address] [place], [address] MCH (RBC) [Entitic mass] 21.8 pg Low 27.0-32.0 [facility] Comment on above: Performed By: #### L 500.2500, L100.0100 #### [facility] [address] [place], [address] MCHC (RBC) [Mass/Vol] 29.7 g/dL Low 32-36 [facility] Comment on above: Performed By: #### L 500.2500, L100.0100 #### [facility] [address] [place], [address] MCV (RBC) [Entitic vol] 73.5 fL Low 80-94 [facility] Comment on above: Performed By: #### L 500.2500, L100.0100 #### [facility] [address] [place], [address] Monocytes/100 WBC (Bld) 9.7 % Normal 0-10 [facility] Comment on above: Performed By: #### L 500.2500, L100.0100 #### [facility] [address] [place], [address] Neutrophils/100 WBC (Bld) 51.9 % Normal 47-70 [facility] Comment on above: Performed By: #### L 500.2500, L100.0100 #### [facility] [address] [place], [address] Nucleated RBC (Bld) [#/Vol] 0 10*3/uL Normal 0-5 [facility] Comment on above: Performed By: #### L 500.2500, L100.0100 #### [facility] [address] [place], [address] Platelet mean volume (Bld) [Entitic vol] 10.6 fL Normal 6.2-12.0 [facility] Comment on above: Performed By: #### L 500.2500, L100.0100 #### [facility] [address] [place], [address] Platelets (Bld) [#/Vol] 281 10*3/uL Normal 150-450 [facility] Comment on above: Performed By: #### L 500.2500, L100.0100 #### [facility] [address] [place], [address] RBC (Bld) [#/Vol] 4.72 10*6/uL Normal 4.6-6.2 [facility] Comment on above: Performed By: #### L 500.2500, L100.0100 #### [facility] [address] [place], [address] RDW SD 41.7 fl Normal 35.1-43.9 [facility] Comment on above: Performed By: #### L 500.2500, L100.0100 #### [facility] [address] [place], [address] WBC (Bld) [#/Vol] 4.4 10*3/uL Normal 4.4-11.0 [facility] Comment on above: Performed By: #### L 500.2500, L100.0100 #### [facility] [address] [place], [address] Chest without Contraston Chest without Contrast [facility] Imaging Services [address] [place] [address] Chest without Contrast MR#: [id number] Acct: [id number] Name: CASH MICHEL Rep #: [id number] : 1965 M 59 From: Mike bailey MD PCP: Shreya Cat NP-C Status: REG ER Study: Chest without Contrast Date of Exam: 11/11/24 Exam# [id number] Ordering Dr: Dawn Elizabeth MD PROCEDURE: CHEST WITHOUT CONTRAST REASON FOR EXAM: History of the flu. Right-sided rib pain following cough. TECHNIQUE: Chest CT without contrast. COMPARISON: None. FINDINGS: Hardware: None. Lymph nodes: No mediastinal hilar or axillary lymphadenopathy. Heart and Vasculature: Normal heart size. No pericardial effusion. Thoracic aorta and pulmonary arteries have normal contours; noncontrast technique limits evaluation. Coronary Artery Calcifications: Lungs and Airways: Findings suggestive of scarring with bronchiectasis in both lower lobes more prominent on the left lung base. No focal infiltrate is seen. Pleura: No pleural effusion. No pneumothorax. Upper Abdomen: Large hiatal hernia. Bones: Degenerative changes of the thoracic spine. Loss of height of lower dorsal vertebrae. No rib fracture seen. CT/Chest without Contrast IMPRESSION: Scarring at both lung bases worse on the left lung base with bronchiectasis. Large hiatal hernia. One or more dose reduction techniques were used (e.g., Automated exposure control, adjustment of the mA and/or kV according to patient size, use of iterative reconstruction technique). Reading Location: [place] [address] CC: SURGICAL SALES REPRESENTATIVE-Margarita Cat; Dr. Dawn Elizabeth MD Landscape Gardener: Signed Normal [facility] Emergency Department Summary on 11-11-2024 Emergency Department Summary [facility] Medical Records Department [address] [place] [address] Emergency Department Summary 11/11/24 MR#: [id number] Acct: [id number] Name: CASH MICHEL Rep #: [id number] : 1965 59 From: Dawn Elizabeth MD PCP: ROBINA Anglin Status:REG ER Location: ED ADDENDUM by Dr. Aashish Winters DO on 11/11/24 at 1717 Patient signed out to me pending delta troponin. Results normal at 13, first 1 at 10. This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 [facility] Date Time Provider Department 07/18/24 3:00 PM GEORGE NORIEGA During your visit today, we recorded the following information about you: Pulse Blood pressure Weight Height 85/minute 146/86 83.6 kg 1.727 m George Noriega MD 07/18/2024 4:18 PM Signed [facility] [place] [facility] Department of Cardiovascular Medicine SECTION OF INTERVENTIONAL CARDIOLOGY OUTPATIENT VISIT DATE 07/18/2024 OUTPATIENT VISIT TYPE Established PRIMARY CARE PHYSICIAN: Awilda Garcia [address] [place] [address] REFERRING PHYSICIAN: Awilda Garcia [address] [facility] [address] CHIEF COMPLAINT: Patient presents with: Consult HISTORY OF PRESENT ILLNESS: Prior Visit 02/15/2023: Mr. Michel is a 57 year old male who presents today for evaluation of chest pain. Patient notes that every time he exerts himself he gets short of breath and has chest pain that radiates down the left jaw and left arm and is completely alleviated with rest after 10 to 15 minutes. The patient cannot accurately state when the symptom started, but he states that he has had the symptoms for months without having worsening or increasing frequency recently. Patient denies any chest pain at rest, diaphoresis, nausea or vomiting. He also notes that he has Palmer class III intermittent claudication worse in the left leg than the right. Prior Visit 05/18/2023: The patient reports marked improvement in his symptoms since being started on 2 antianginals. He denies any further chest heaviness with exertion. The patient also underwent nuclear stress testing that did not show evidence of ischemia and echocardiogram showed preserved ejection fraction without wall motion abnormalities. Furthermore his SCOTT PVR did not show evidence of peripheral vascular disease and his carotid duplex showed minimal carotid artery stenosis. Risk factors for coronary artery disease hypertension Current Visit 07/18/2024: Patient reports two episodes of chest pain with exertion lasting 5 minutes despite dual antianginal therapy. He denies orthopnea, PND, palpitations, lightheadedness, syncope, leg swelling, cough, and wheezing. Diet / Nutrition: Reports heart healthy diet Weight: no change since last visit Exercise: As above. SOCIAL HISTORY Social History Tobacco Use Smoking status: Never Smokeless tobacco: Never Substance Use Topics Alcohol use: Never Drug use: Never ALLERGIES: ALLERGIES No Known Allergies MEDICATIONS: lisinopril-hydroCHLOROthi azide (ZESTORETIC) 20-12.5 mg per tablettake 1 tablet by mouth once dailyDisp: 90 tabletRfl: 2 HYDROcodone-acetaminophen (NORCO) 5-325 mg per tabletTake by mouth.Disp: Rfl: naproxen (NAPROSYN) 500 mg tabletTake 500 mg by mouth twice daily.Disp: Rfl: amLODIPine (NORVASC) 10 mg mg.Disp: Rfl: omeprazole (PRILOSEC) 20 mg capsuleTake by mouth.Disp: Rfl: fluticasone-salmeterol (ADVAIR, WIXELA) 250-50 mcg/dose inhalerInhale as instructed.Disp: Rfl: acetaminophen (TYLENOL EXTRA STRENGTH ORAL)Take by mouth.Disp: Rfl: albuterol HFA (VENTOLIN HFA) 90 mcg/actuation inhalerInhale 2 Puffs as instructed every 4 hours as needed for Wheezing/Shortness of Breath.Disp: 1 InhalerRfl: 0 metoprolol succinate ER (TOPROL XL) 25 mg 24 hr tabletTake 0.5 tablets by mouth once daily.Disp: 45 tabletRfl: 3 REVIEW OF SYSTEMS: GENERAL: negative for: fevers, chills, and change in weight HEENT: negative for: headaches, hearing loss, difficulty swallowing, visual changes, nose bleeds, dentures, own teeth SKIN: rashes, lesions, and ulcers RESPIRATORY: SEE HPI CARDIOVASCULAR: See HPI GASTROINTESTINAL: negative for: abdominal pain, nausea, vomiting, difficulty or painful swallowing, and melanotic stools GENITOURINARY: negative for: dysuria, frequency, nocturia, and male potency MUSCULOSKELETAL: negative for: joint pain, joint swelling, muscle pain or myalgias, and pain with walking NEUROLOGIC: negative for: numbness, tingling, and sensation of pins and needles HEMATOLOGY: negative for: bruising easily, prolonged bleeding, anemia, and cancer ENDOCRINE: negative for: cold or heat intolerance, polyuria, polydipsia, goiter, diabetes, and thyroid disease PSYCH: negative for: sleep disturbance, mood disorders, and recent psychosocial stressors PHYSICAL EXAMINATION: 07/18/24 1528 BP: 146/86 BP Site: Left Arm BP Position: Sitting BP Cuff Size: Regular Adult Pulse: 85 Weight: 83.6 kg (184 lb 4.9 oz) Height: 172.7 cm (5' 8) General: Well appearing, in no acute distress, speaking in complete sentences. Inappropriate affect at times Skin: No clubbing, no cyanosis. Head/Eyes: Extra ocular movements intact (more content not included)... Normal [facility] Comprehensive metabolic 2000 panelon 07-18-2024 Albumin [Mass/Vol] 4.0 g/dL 3.9 - 4.9 g/dL [facility] ALP [Catalytic activity/Vol] 68 U/L 38 - 113 U/L [facility] ALT [Catalytic activity/Vol] 14 U/L 10 - 54 U/L [facility] Anion gap [Moles/Vol] 9 mmol/L 8 - 15 mmol/L [facility] AST [Catalytic activity/Vol] 21 U/L 14 - 40 U/L [facility] Bilirubin [Mass/Vol] 0.3 mg/dL 0.2 - 1 .3 mg/dL [facility] Calcium [Mass/Vol] 9.1 mg/dL 8.5 - 10. 2 mg/dL [facility] Chloride [Moles/Vol] 107 mmol/L 98 - 10 7 mmol/L [facility] CO2 [Moles/Vol] 25 mmol/L 22 - 30 mmol/L [facility] Creatinine [Mass/Vol] 1.02 mg/dL 0.73 - 1.22 mg/dL [facility] GFR/1.73 sq M.predicted among non-blacks MDRD (S/P/Bld) [Vol rate/Area] 84 mL/min/{1.73_m2} - PINF [facility] Comment on above: Estimated Glomerular Filtration Rate (eGFR) is calculated using the 2020 CKD-EPI creatinine equation. This equation utilizes serum creatinine, sex, and age as parameters. The creatinine assay has traceable calibration to isotope dilution-mass spectrometry. Refer to KDIGO guidelines for clinical interpretation. In patients with unstable renal function, e.g. those with acute kidney injury, the eGFR may not accurately reflect actual GFR. Glucose [Mass/Vol] 94 mg/dL 74 - 99 mg/dL [facility] Comment on above: The [place] Diab[employer] s Association (ADA) provides guidance for cutoff values for fasting glucose and random glucose. The ADA defines fasting as no caloric intake for at least 8 hours. Fasting plasma glucose results between 100 to 125 mg/dL indicate increased risk for diabetes (prediabetes). Fasting plasma glucose results greater than or equal to 126 mg/dL meet the criteria for diagnosis of diabetes. In the absence of unequivocal hyperglycemia, results should be confirmed by repeat testing. In a patient with classic symptoms of hyperglycemia or hyperglycemic crisis, random plasma glucose results greater than or equal to 200 mg/dL meet the criteria for diagnosis of diabetes. Reference: Standards of Medical Care in Diabetes 2016, [place] [employer] Association. Diabetes Care. 2016.39(Suppl 1). Interpretation and review of laboratory results Normal [facility] Potassium [Moles/Vol] 4.1 mmol/L 3.7 - 5.1 mmol/L [facility] Protein [Mass/Vol] 7.5 g/dL 6.3 - 8.0 g/dL [facility] Sodium [Moles/Vol] 141 mmol/L 136 - 144 mmol/L [facility] Urea nitrogen [Mass/Vol] 13 mg/dL 9 - 24 mg/dL [facility] Albumin [Mass/Vol] 4.0 g/dL Normal 3.9-4.9 [facility] Comment on above: Order Comment: Carlo howard Type: BLOOD SPECIMEN Ordering Facility: [facility] Address: [address] [place] [address] Performed By: #### 2 4323-8 #### [facility] CLIA [id number] [address] [facility] [place] [place] [address] [place] ALP [Catalytic activity/Vol] 68 U/L Normal 38-113 [facility] Comment on above: Order Comment: Carlo howard Type: BLOOD SPECIMEN Ordering Facility: [facility] Address: [address] [place] [address] Performed By: #### 2 4323-8 #### [facility] CLIA [id number] [place] [address] [place] ALT [Catalytic activity/Vol] 14 U/L Normal 10-54 [facility] Comment on above: Order Comment: Speci men Type: BLOOD SPECIMEN Ordering Facility: [facility] Address: [address] [place] [address] Performed By: #### 2 4323-8 #### [facility] CLIA [id number] [address] [place] [address] [place] Anion gap [Moles/Vol] 9 mmol/L Normal 8-15 [facility] Comment on above: Order Comment: Speci men Type: BLOOD SPECIMEN Ordering Facility: [facility] Address: [address] [place] [address] Performed By: #### 2 4323-8 #### [facility] IA [id number] [address] [place] [address] [place] AST [Catalytic activity/Vol] 21 U/L Normal 14-40 [facility] Comment on above: Order Comment: Speci men Type: BLOOD SPECIMEN Ordering Facility: [facility] Address: [address] [place] [address] Performed By: #### 2 4323-8 #### [facility] IA [id number] [address] [place] [address] [place] Bilirubin [Mass/Vol] 0.3 mg/dL Normal 0.2-1.3 [facility] Comment on above: Order Comment: Speci men Type: BLOOD SPECIMEN Ordering Facility: [facility] Address: [address] [place] [address] Performed By: #### 2 4323-8 #### [facility] IA [id number] [address] [place] [address] [place] Calcium [Mass/Vol] 9.1 mg/dL Normal 8.5-10.2 [facility] Comment on above: Order Comment: Speci men Type: BLOOD SPECIMEN Ordering Facility: [facility] Address: [address] [place] [address] Performed By: #### 2 4323-8 #### [facility] CLIA [id number] [address] [place] [address] [place] Chloride [Moles/Vol] 107 mmol/L Normal 98-107 [facility] Comment on above: Order Comment: Speci men Type: BLOOD SPECIMEN Ordering Facility: [facility] Address: [address] [place] [address] Performed By: #### 2 4323-8 #### [facility] CLIA [id number] [address] [place] [address] [place] CO2 [Moles/Vol] 25 mmol/L Normal 22-30 [facility] Comment on above: Order Comment: Speci men Type: BLOOD SPECIMEN Ordering Facility: [facility] Address: [address] [place] [address] Performed By: #### 2 4323-8 #### [facility] CLIA [id number] [address] [place] [address] [place] Creatinine [Mass/Vol] 1.02 mg/dL Normal 0.73-1.22 [facility] Comment on above: Order Comment: Speci men Type: BLOOD SPECIMEN Ordering Facility: [facility] Address: [address] [place] [address] Performed By: #### 2 4323-8 #### [facility] CLIA [id number] [address] [place] [address] [facility] [place] Creatinine and Glomerular filtration rate.predicted panel (S/P/Bld) 84 mL/min/1.73m??? Normal >=60 [facility] Comment on above: Order Comment: Speci men Type: BLOOD SPECIMEN Ordering Facility: [facility] Address: [address] [place] [address] Result Comment: Marie mated Glomerular Filtration Rate (eGFR) is calculated using the 2020 CKD-EPI creatinine equation. This equation utilizes serum creatinine, sex, and age as parameters. The creatinine assay has traceable calibration to isotope dilution-mass spectrometry. Refer to KDIGO guidelines for clinical interpretation. In patients with unstable renal function, e.g. those with acute kidney injury, the eGFR may not accurately reflect actual GFR. Performed By: #### 2 4323-8 #### [facility] IA [id number] [address] [place] [address] [place] Glucose [Mass/Vol] 94 mg/dL Normal 74-99 [facility] Comment on above: Order Comment: Carlo howard Type: BLOOD SPECIMEN Ordering Facility: [facility] Address: [address] [place] [address] Result Comment: The [place] Diabetes Association (ADA) provides guidance for cutoff values for fasting glucose and random glucose. The ADA defines fasting as no caloric intake for at least 8 hours. Fasting plasma glucose results between 100 to 125 mg/dL indicate increased risk for diabetes (prediabetes). Fasting plasma glucose results greater than or equal to 126 mg/dL meet the criteria for diagnosis of diabetes. In the absence of unequivocal hyperglycemia, results should be confirmed by repeat testing. In a patient with classic symptoms of hyperglycemia or hyperglycemic crisis, random plasma glucose results greater than or equal to 200 mg/dL meet the criteria for diagnosis of diabetes. Reference: Standards of Medical Care in Diabetes 2016, [place] [employer]. Diabetes Care. 2016.39(Suppl 1). Performed By: #### 2 4323-8 #### [facility] IA [id number] [address] [place] [address] [place] Potassium [Moles/Vol] 4.1 mmol/L Normal 3.7-5.1 [facility] Comment on above: Order Comment: Carlo howard Type: BLOOD SPECIMEN Ordering Facility: [facility] Address: [address] [place] [address] Performed By: #### 2 4323-8 #### [facility] CLIA [id number] [address] [place] [address] [place] Protein [Mass/Vol] 7.5 g/dL Normal 6.3-8.0 [facility] Comment on above: Order Comment: Carlo howard Type: BLOOD SPECIMEN Ordering Facility: [facility] Address: [address] [place], [place] [address] Performed By: #### 2 4323-8 #### [facility] CLIA [id number] [address] [place] [address] [place] Sodium [Moles/Vol] 141 mmol/L Normal 136-144 [facility] Comment on above: Order Comment: Speci men Type: BLOOD SPECIMEN Ordering Facility: [facility] Address: [address] [place] [address] Performed By: #### 2 4323-8 #### [facility] CLIA [id number] [address] [place] [address] [place] Urea nitrogen [Mass/Vol] 13 mg/dL Normal 9-24 [facility] Comment on above: Order Comment: Speci men Type: BLOOD SPECIMEN Ordering Facility: [facility] Address: [address] [place], [place] [address] Performed By: #### 2 4323-8 #### [facility] CLIA [id number] [address] [place] [address] [facility] [place] [id number] 07-18-2024 ECG01 Ventricular Rate : 8 5 BPM Atrial Rate : 85 BPM P-R Interval : 150 ms QRS Duration : 86 ms Q-T Interval : 370 ms QTC Calculation(Bazett) : 440 ms Calculated P Moran : 32 degrees Calculated R Moran : -10 degrees Calculated T Moran : 0 degrees NORMAL SINUS RHYTHM MINIMAL VOLTAGE CRITERIA FOR LVH, MAY BE NORMAL VARIANT ( R in aVL ) BORDERLINE ECG Confirmed by DEREK POLANCO MD ([id number]) on 07/19/2024 2:04:28 PM NAME : CASH MICHEL PID : [id number] : 1965 Gender : Male Race : ORD : Procedure Date : Jul 18 2024 15:34:55 Edit Date : Jul 19 2024 14:04:29 Diagnosis: NORMAL SINUS RHYTHM MINIMAL VOLTAGE CRITERIA FOR LVH, MAY BE NORMAL VARIANT ( R in aVL ) BORDERLINE ECG Confirmed by DEREK POLANCO MD ([id number]) on 07/19/2024 2:04:28 PM Test Reason : Location : 192 : AVCRD Overread By : DEREK POLANCO MD Edited By : DEREK POLANCO MD Referred By : , Acquired by : , Normal [facility] Absolute lymphocyte countOrd ered By: Nathanael Copeland on 09-23-2023 Lymphocytes Auto (Unsp spec) [#/Vol] 2.60 10*3/uL 0.83-4.51 [facility] Basophil percentageOrdered B y: Nathanael Copeland on 09-23-2023 Basophils/100 WBC (Bld) 0.9 % 0-1 [facility] Chloride [Moles/Vol] 107 mmol/L 98-107 [facility] Eosinophils/100 WBC (Bld) 1.7 % 0-5 [facility] Glucose [Mass/Vol] 108 mg/dL 74-106 [facility] Comment on above: Fasting Glucose resu lt from 100 to 125 mg/dL suggests IMPAIRED HOMEOSTASIS per A.D.A. criteria. Neutrophils (Bld) [#/Vol] 7.4 10*3/uL 2.0-7.7 [facility] Neutrophils/100 WBC (Bld) 64.4 % 47-70 [facility] Potassium [Moles/Vol] 3.7 mmol/L 3.5-5.1 [facility] Sodium [Moles/Vol] 137 mmol/L 136-145 [facility] WBC (Bld) [#/Vol] 11.5 10*3/uL 4.4-11.0 [facility] Blood erythrocytes count (nu mber/volume)Ordered By: Nathanael Copeland on 09-23-2023 RBC (Bld) [#/Vol] 4.86 10*6/uL 4.6-6.2 [facility] Blood hemoglobin measurement (mass/volume)Ordered By: Nathanael Copeland on 09-23-2023 Hemoglobin (Bld) [Mass/Vol] 13.2 g/dL 13.0-16.5 [facility] Blood lymphocytes/100 leukoc ytesOrdered By: Nathanael Copeland on 09-23-2023 Lymphocytes/100 WBC (Bld) 22.7 % 19-41 [facility] Blood monocytes/100 leukocyt esOrdered By: Nathanael Copeland on 09-23-2023 Monocytes/100 WBC (Bld) 10.0 % 0-10 [facility] Blood platelet mean volumeOr dered By: Nathanael Copeland on 09-23-2023 Platelet mean volume (Bld) [Entitic vol] 10.9 fL 6.2-12.0 [facility] Determination of erythrocyte mean corpuscular volume (MCV)Ordered By: Nathanael Copeland on 09-23-2023 MCV (RBC) [Entitic vol] 85.8 fL 80-94 [facility] Hematocrit Auto (Bld) [Volum e fraction]Ordered By: Nathanael Copeland on 09-23-2023 Hematocrit (Bld) [Volume fraction] 41.7 % 40-54 [facility] Laboratory - Chemistry and C hemistry - challengeOrdered By: Nathanael Copeland on 09-23-2023 CO2 [Moles/Vol] 27.0 mmol/L 21.0-32.0 [facility] Urea nitrogen/Creatinine [Mass ratio] 17.5 mg/mg 10-20 [facility] Laboratory - Hematology and Cell countsOrdered By: Nathanael Copeland on 09-23-2023 Erythrocyte distribution width (RBC) [Entitic vol] 40.5 fL 35.1-43.9 [facility] Erythrocyte distribution width (RBC) [Ratio] 13.0 % 11.6-14.6 [facility] Immature granulocytes/100 WBC (Bld) 0.300 % 0.0-0.9 [facility] Comment on above: IG% - Immature Granu locytes (promyelocytes, myelocytes and metamyelocytes) > 1% indicates that a LEFT SHIFT is Present. MCH (RBC) [Entitic mass] 27.2 pg 27.0-32.0 [facility] Nucleated RBC/100 WBC (Bld) [Ratio] 0 % 0-5 [facility] MCHC Auto (RBC) [Mass/Vol]Or dered By: Nathanael Copeland on 09-23-2023 MCHC (RBC) [Mass/Vol] 31.7 g/dL 32-36 [facility] No Panel InformationOrdered By: Nathanael Copeland on 09-23-2023 D-Dimer Quantitative (PE/DVT) 1.30 FEU/ug/m 0.27-0.49 [facility] Comment on above: D-Dimer ELEVATED (>0 .49): Additional studies and clinicalassessments are indicated to conclude diagnosis of:Deep Vein Thrombosis (DVT) or Pulmonary Embolism (PE)CRITICAL VALUE VERIFIED. CALLED TO [id number] Dianne Hamm.RESULTS READ BACK BY SAME . Estimated GFR (MDRD) Amer 84 mL/min >60 [facility] Comment on above: GFR Calc Estimated GFR (MDRD) Non-Af Amer 70 mL/min >60 [facility] Comment on above: Non- GFR Calc Troponin I High Sensitivity 8 pg/mL 3.0-78.0 [facility] Comment on above: Please Note: New [place] t Units and Gender Specific Reference Ranges. For more information see Policy Stat Procedure [place] High Sensitivity Troponin (TNIH) and attachments. Platelets bldOrdered By: Richard Copeland on 09-23-2023 Platelets (Bld) [#/Vol] 298 10*3/uL 150-450 [facility] Serum or plasma calcium zunilda urement (mass/volume)Ordered By: Nathanael Copeland on 09-23-2023 Calcium [Mass/Vol] 9.8 mg/dL 8.5-10.1 [facility] Serum or plasma creatinine m easurement (mass/volume)Ordered By: Nathanael Copeland on 09-23-2023 Creatinine [Mass/Vol] 1.14 mg/dL 0.70-1.30 [facility] Comment on above: The validity of the calculated GFR & GFRAA in patients over 70 years has not been determined. Clinical correlation is essential. Serum or plasma urea nitroge n measurement (mass/volume)Ordered By: Nathanael Copeland on 09-23-2023 Urea nitrogen [Mass/Vol] 20 mg/dL 7-18 [facility] Thin prep Papanicolaou smear with manual screeningOrdered By: Nathanael Copeland on 09-23-2023 Thin prep Papanicolaou smear with manual screening 3 5-15 [facility] Absolute lymphocyte countOrd ered By: Ant Alvarez on 06-16-2023 Lymphocytes Auto (Unsp spec) [#/Vol] 2.32 10*3/uL 0.83-4.51 [facility] Basophil percentageOrdered B y: Ant Alvarez on 06-16-2023 Basophils/100 WBC (Bld) 0.3 % 0-1 [facility] Bilirubin [Mass/Vol] 0.60 mg/dL 0.20-1.00 [facility] Comment on above: For patients on eltr ombopag therapy, use of Dimension [place] TBIL is not recommended. Chloride [Moles/Vol] 107 mmol/L 98-107 [facility] Eosinophils/100 WBC (Bld) 1.4 % 0-5 [facility] Glucose [Mass/Vol] 107 mg/dL 74-106 [facility] Comment on above: Fasting Glucose resu lt from 100 to 125 mg/dL suggests IMPAIRED HOMEOSTASIS per A.D.A. criteria. Neutrophils (Bld) [#/Vol] 6.7 10*3/uL 2.0-7.7 [facility] Neutrophils/100 WBC (Bld) 64.8 % 47-70 [facility] Potassium [Moles/Vol] 3.4 mmol/L 3.5-5.1 [facility] Protein [Mass/Vol] 7.1 g/dL 6.4-8.2 [facility] Sodium [Moles/Vol] 137 mmol/L 136-145 [facility] WBC (Bld) [#/Vol] 10.4 10*3/uL 4.4-11.0 [facility] Blood erythrocytes count (nu mber/volume)Ordered By: Ant Alvarez on 06-16-2023 RBC (Bld) [#/Vol] 4.74 10*6/uL 4.6-6.2 [facility] Blood hemoglobin measurement (mass/volume)Ordered By: Ant Alvarez on 06-16-2023 Hemoglobin (Bld) [Mass/Vol] 13.1 g/dL 13.0-16.5 [facility] Blood lymphocytes/100 leukoc ytesOrdered By: Ant Alvarez on 06-16-2023 Lymphocytes/100 WBC (Bld) 22.3 % 19-41 [facility] Blood monocytes/100 leukocyt esOrdered By: Ant Alvarez on 06-16-2023 Monocytes/100 WBC (Bld) 10.8 % 0-10 [facility] Blood platelet mean volumeOr dered By: Ant Alvarez on 06-16-2023 Platelet mean volume (Bld) [Entitic vol] 10.4 fL 6.2-12.0 [facility] Determination of erythrocyte mean corpuscular volume (MCV)Ordered By: Ant Alvarez on 06-16-2023 MCV (RBC) [Entitic vol] 86.9 fL 80-94 [facility] Hematocrit Auto (Bld) [Volum e fraction]Ordered By: Ant Alvarez on 06-16-2023 Hematocrit (Bld) [Volume fraction] 41.2 % 40-54 [facility] Laboratory - Chemistry and C hemistry - challengeOrdered By: Ant Alvarez on 06-16-2023 ALP [Catalytic activity/Vol] 52 U/L 45-117 [facility] ALT [Catalytic activity/Vol] 15 U/L 16-61 [facility] CO2 [Moles/Vol] 27.0 mmol/L 21.0-32.0 [facility] Globulin (S) [Mass/Vol] 3.9 g/dL 2.2-4.2 [facility] Lipase [Catalytic activity/Vol] 47 U/L 13-75 [facility] Comment on above: Please note:LIPASE r evised reference range effective 23. New Lipase methodology. Expected to produce lower values than the previous assay method. NEW Reference Range: 13 - 75 U/L Natriuretic peptide B (Bld) [Mass/Vol] 4.3 pg/mL 0-100 [facility] Urea nitrogen/Creatinine [Mass ratio] 15.1 mg/mg 10-20 [facility] Laboratory - Hematology and Cell countsOrdered By: Ant Alvarez on 06-16-2023 Erythrocyte distribution width (RBC) [Entitic vol] 42.2 fL 35.1-43.9 [facility] Erythrocyte distribution width (RBC) [Ratio] 13.3 % 11.6-14.6 [facility] Immature granulocytes/100 WBC (Bld) 0.400 % 0.0-0.9 [facility] Comment on above: IG% - Immature Granu locytes (promyelocytes, myelocytes and metamyelocytes) > 1% indicates that a LEFT SHIFT is Present. MCH (RBC) [Entitic mass] 27.6 pg 27.0-32.0 [facility] Nucleated RBC/100 WBC (Bld) [Ratio] 0 % 0-5 [facility] MCHC Auto (RBC) [Mass/Vol]Or dered By: Ant Alvarez on 06-16-2023 MCHC (RBC) [Mass/Vol] 31.8 g/dL 32-36 [facility] No Panel InformationOrdered By: Ant Alvarez on 06-16-2023 Estimated Creatinine Clearance Calc 47.80 ml/min [facility] Estimated GFR (MDRD) Amer 57 mL/min >60 [facility] Comment on above: GFR Calc Estimated GFR (MDRD) Non-Af Amer 47 mL/min >60 [facility] Comment on above: Non- GFR Calc Troponin I High Sensitivity 4 pg/mL 3.0-78.0 [facility] Comment on above: Please Note: New [place] t Units and Gender Specific Reference Ranges. For more information see Policy Stat Procedure [place] High Sensitivity Troponin (TNIH) and attachments. Platelets bldOrdered By: Pj medina Antonio on 06-16-2023 Platelets (Bld) [#/Vol] 241 10*3/uL 150-450 [facility] Serum or plasma albumin zunilda urement (mass/volume)Ordered By: Ant Alvarez on 06-16-2023 Albumin [Mass/Vol] 3.2 g/dL 3.2-5.0 [facility] Serum or plasma albumin/glob ulin mass ratioOrdered By: Ant Alvarez on 06-16-2023 Albumin/Globulin [Mass ratio] 0.8 {ratio} 0.9-2.4 [facility] Serum or plasma calcium zunilda urement (mass/volume)Ordered By: Ant Alvarez on 06-16-2023 Calcium [Mass/Vol] 8.7 mg/dL 8.5-10.1 [facility] Serum or plasma creatinine m easurement (mass/volume)Ordered By: Ant Alvarez on 06-16-2023 Creatinine [Mass/Vol] 1.59 mg/dL 0.70-1.30 [facility] Comment on above: The validity of the calculated GFR & GFRAA in patients over 70 years has not been determined. Clinical correlation is essential. Serum or plasma urea nitroge n measurement (mass/volume)Ordered By: Ant Alvarez on 06-16-2023 Urea nitrogen [Mass/Vol] 24 mg/dL 7-18 [facility] Thin prep Papanicolaou smear with manual screeningOrdered By: Ant Alvarez on 06-16-2023 Thin prep Papanicolaou smear with manual screening 12 U/L 15-37 [facility] Thin prep Papanicolaou smear with manual screening 3 5-15 [facility] COVID 19 (ONLY) RAPID ([id number] )Ordered By: LESLEY Marquez on 05-31-2023 SARS-CoV-2 (COVID-19) RNA BRISEIDA+probe Ql (Unsp spec) Negative Normal [facility] Work Phone: Rapid Flu ([phone] x [phone])Ordered By: LESLEY Marquez on 05-31-2023 FLUAV Ag IA Ql (Throat) Negative Normal [facility]; [facility] Work Phone: CBC W Auto Differential pane l (Bld)on 05-15-2023 Basophils (Bld) [#/Vol] 0.07 10*3/uL Normal <0.11 [facility] Comment on above: Order Comment: Speci men Type: BLOOD SPECIMENOrdering Facility: [facility] Address: [address] [place] [address] Performed By: #### 5 7021-8 ####ROSS LABORATORYCLIA [id number] [place] [address] [place] Basophils/100 WBC (Bld) 0.8 % Normal [facility] Comment on above: Order Comment: Speci men Type: BLOOD SPECIMENOrdering Facility: [facility] Address: [address] [place] [address] Performed By: #### 5 7021-8 ####ROSS LABORATORYCLIA [id number] [place] [address] [place] Differential cell count method Nom (Bld) Auto Normal [facility] Comment on above: Order Comment: Speci men Type: BLOOD SPECIMENOrdering Facility: [facility] Address: [address] [address] Performed By: #### 5 7021-8 ####ROSS LABORATORYCLIA [id number] [place] [address] [place] Eosinophils (Bld) [#/Vol] 0.07 10*3/uL Normal <0.46 [facility] Comment on above: Order Comment: Speci men Type: BLOOD SPECIMENOrdering Facility: [facility] Address: [address] [place] [address] Performed By: #### 5 7021-8 ####ROSS LABORATORYCLIA [id number] [address] [place] Eosinophils/100 WBC (Bld) 0.8 % Normal [facility] Comment on above: Order Comment: Speci men Type: BLOOD SPECIMENOrdering Facility: [facility] Address: [address] [place] [address] Performed By: #### 5 7021-8 ####ROSS LABORATORYCLIA [id number] [address] [place] Erythrocyte distribution width (RBC) [Ratio] 13.2 % Normal 11.5-15.0 [facility] Comment on above: Order Comment: Speci men Type: BLOOD SPECIMENOrdering Facility: [facility] Address: [address] [place] [address] Performed By: #### 5 7021-8 ####ROSS LABORATORYCLIA [id number] [address] [place] Hematocrit (Bld) [Volume fraction] 41.8 % Normal 39.0-51.0 [facility] Comment on above: Order Comment: Speci men Type: BLOOD SPECIMENOrdering Facility: [facility] Address: [address] [place] [address] Performed By: #### 5 7021-8 ####ROSS LABORATORYCLIA [id number] [address] [place] Hemoglobin (Bld) [Mass/Vol] 13.4 g/dL Normal 13.0-17.0 [facility] Comment on above: Order Comment: Speci men Type: BLOOD SPECIMENOrdering Facility: [facility] Address: [address] [place] [address] Performed By: #### 5 7021-8 ####ROSS LABORATORYCLIA [id number] [address] Immature granulocytes (Bld) [#/Vol] 0.03 10*3/uL Normal <0.10 [facility] Comment on above: Order Comment: Speci men Type: BLOOD SPECIMENOrdering Facility: [facility] Address: [address] [place] [address] Performed By: #### 5 7021-8 ####ROSS LABORATORYCLIA [id number] [address] Immature granulocytes/100 WBC (Bld) 0.3 % Normal [facility] Comment on above: Order Comment: Speci men Type: BLOOD SPECIMENOrdering Facility: [facility] Address: [address] [place] [address] Performed By: #### 5 7021-8 ####ROSS LABORATORYCLIA [id number] [place] [address] [place] Lymphocytes (Bld) [#/Vol] 2.57 10*3/uL Normal 1.00-4.00 [facility] Comment on above: Order Comment: Speci men Type: BLOOD SPECIMENOrdering Facility: [facility] Address: [address] [place] [address] Performed By: #### 5 7021-8 ####ROSS LABORATORYCLIA [id number] [address] Lymphocytes/100 WBC (Bld) 28.3 % Normal [facility] Comment on above: Order Comment: Speci men Type: BLOOD SPECIMENOrdering Facility: [facility] Address: [address] [place] [address] Performed By: #### 5 7021-8 ####ROSS LABORATORYCLIA [id number] [address] [place] MCH (RBC) [Entitic mass] 27.1 pg Normal 26.0-34.0 [facility] Comment on above: Order Comment: Speci men Type: BLOOD SPECIMENOrdering Facility: [facility] Address: [address] [place] [address] Performed By: #### 5 7021-8 ####ROSS LABORATORYCLIA [id number] [address] MCHC (RBC) [Mass/Vol] 32.1 g/dL Normal 30.5-36.0 [facility] Comment on above: Order Comment: Speci men Type: BLOOD SPECIMENOrdering Facility: [facility] Address: [address] [place] [address] Performed By: #### 5 7021-8 ####ROSS LABORATORYCLIA [id number] [place] [address] [place] MCV (RBC) [Entitic vol] 84.4 fL Normal 80.0-100.0 [facility] Comment on above: Order Comment: Speci men Type: BLOOD SPECIMENOrdering Facility: [facility] Address: [address] [place] [address] Performed By: #### 5 7021-8 ####ROSS LABORATORYCLIA [id number] [place] [address] [place] Monocytes (Bld) [#/Vol] 0.77 10*3/uL Normal <0.87 [facility] Comment on above: Order Comment: Speci men Type: BLOOD SPECIMENOrdering Facility: [facility] Address: [address] [place] [address] Performed By: #### 5 7021-8 ####ROSS LABORATORYCLIA [id number] [address] [place] Monocytes/100 WBC (Bld) 8.5 % Normal [facility] Comment on above: Order Comment: Speci men Type: BLOOD SPECIMENOrdering Facility: [facility] Address: [address] [place] [address] Performed By: #### 5 7021-8 ####ROSS LABORATORYCLIA [id number] [place] [address] [place] Neutrophils (Bld) [#/Vol] 5.57 10*3/uL Normal 1.45-7.50 [facility] Comment on above: Order Comment: Speci men Type: BLOOD SPECIMENOrdering Facility: [facility] Address: [address] [place] [address] Performed By: #### 5 7021-8 ####ROSS LABORATORYCLIA [id number] [address] OF [place] Neutrophils/100 WBC (Bld) 61.3 % Normal [facility] Comment on above: Order Comment: Speci men Type: BLOOD SPECIMENOrdering Facility: [facility] Address: [address] [address] Performed By: #### 5 7021-8 ####ROSS LABORATORYCLIA [id number] [address] Nucleated RBC (Bld) [#/Vol] 10*3/uL Normal <0.01 [facility] Comment on above: Order Comment: Speci men Type: BLOOD SPECIMENOrdering Facility: [facility] Address: [address] [address] Performed By: #### 5 7021-8 ####ROSS LABORATORYCLIA [id number] [address] Nucleated RBC/100 WBC (Bld) [Ratio] 0.0 /100 WBC Normal [facility] Comment on above: Order Comment: Speci men Type: BLOOD SPECIMENOrdering Facility: [facility] Address: [address] [address] Performed By: #### 5 7021-8 ####ROSS LABORATORYCLIA [id number] [place] [address] [place] Platelet mean volume (Bld) [Entitic vol] 10.7 fL Normal 9.0-12.7 [facility] Comment on above: Order Comment: Speci men Type: BLOOD SPECIMENOrdering Facility: [facility] Address: [address] [address] Performed By: #### 5 7021-8 ####ROSS LABORATORYCLIA [id number] [address] [place] Platelets (Bld) [#/Vol] 270 10*3/uL Normal 150-400 [facility] Comment on above: Order Comment: Speci men Type: BLOOD SPECIMENOrdering Facility: [facility] Address: [address] [address] Performed By: #### 5 7021-8 ####ROSS LABORATORYCLIA [id number] [place] [address] [place] RBC (Bld) [#/Vol] 4.95 10*6/uL Normal 4.20-6.00 [facility] Comment on above: Order Comment: Speci men Type: BLOOD SPECIMENOrdering Facility: [facility] Address: [address] [address] Performed By: #### 5 7021-8 ####ORSS LABORATORYCLIA [id number] [address] OF [facility] WBC (Bld) [#/Vol] 9.08 10*3/uL Normal 3.70-11.00 [facility] Comment on above: Order Comment: Speci men Type: BLOOD SPECIMENOrdering Facility: [facility] Address: [address] [address] Performed By: #### 5 7021-8 ####ROSS LABORATORYCLIA [id number] [address] STATES OF [facility] Basophils (Bld) [#/Vol] 0.07 10*3/uL <0.11 k/uL [facility] Basophils/100 WBC (Bld) 0.8 % [facility] Differential cell count method Nom (Bld) Auto [facility] Eosinophils (Bld) [#/Vol] 0.07 10*3/uL <0.46 k/uL [facility] Eosinophils/100 WBC (Bld) 0.8 % [facility] Erythrocyte distribution width (RBC) [Ratio] 13.2 % 11.5 - 15.0 % [facility] Hematocrit (Bld) [Volume fraction] 41.8 % 39.0 - 51.0 % [facility] Hemoglobin (Bld) [Mass/Vol] 13.4 g/dL 13.0 - 17.0 g/dL [facility] Immature granulocytes (Bld) [#/Vol] 0.03 10*3/uL <0.10 k/uL [facility] Immature granulocytes/100 WBC (Bld) 0.3 % [facility] Lymphocytes (Bld) [#/Vol] 2.57 10*3/uL 1.00 - 4.00 k/uL [facility] Lymphocytes/100 WBC (Bld) 28.3 % [facility] MCH (RBC) [Entitic mass] 27.1 pg 26.0 - 34.0 pg [facility] MCHC (RBC) [Mass/Vol] 32.1 g/dL 30.5 - 36.0 g/dL [facility] MCV (RBC) [Entitic vol] 84.4 fL 80.0 - 100.0 fL [facility] Monocytes (Bld) [#/Vol] 0.77 10*3/uL <0.87 k/uL [facility] Monocytes/100 WBC (Bld) 8.5 % [facility] Neutrophils (Bld) [#/Vol] 5.57 10*3/uL 1.45 - 7.50 k/uL [facility] Neutrophils/100 WBC (Bld) 61.3 % [facility] Nucleated RBC (Bld) [#/Vol] <0.01 k/uL [facility] Nucleated RBC/100 WBC (Bld) [Ratio] 0.0 /100 WBC [facility] Platelet mean volume (Bld) [Entitic vol] 10.7 fL 9.0 - 12.7 fL [facility] Platelets (Bld) [#/Vol] 270 10*3/uL 150 - 400 k/uL [facility] RBC (Bld) [#/Vol] 4.95 10*6/uL 4.20 - 6.00 m/uL [facility] WBC (Bld) [#/Vol] 9.08 10*3/uL 3.70 - 11.00 k/uL [facility] IgE SerPl-aCncon 05-15-2023 IgE Qn 7.7 kU/l Normal <114.0 [facility] Comment on above: Order Comment: Speci men Type: BLOOD SPECIMENOrdering Facility: [facility] Address: [address] [place], [place] [address] Performed By: #### 1 9113-0 ####[facility] LABCLIA [id number] [facility] [id number] [place] [id number] [place] SPIROMETRY - BASELINE AND PO ST DILATORon 05-15-2023 MCJ23-80% POST (L/S) 2.58 L/S [facility]% PRE (L/S) 1.51 L/S [place] [facility] FEV1 PRE (L) 1.82 L [facility] FEV1/FVC POST (%) 76 [facility] PRE (%) 75 % [facility] FEV1_POST (L) 2.22 L [facility] FVC POST (L) 2.91 L [facility] FVC PRE (L) 2.43 L [facility] PEF POST (L/S) 3.33 L/S [facility] PEF PRE (L/S) 3.13 L/S [facility] SURGICAL PATHOLOGYOrdered By : Rios Tracy on 04-26-2023 Case Report Surgical Pathology R eport Case: [id number] Authorizing Provider: Roby Mock, Collected: 04/25/2023 10:40 AM Ordering Location: Ambulatory Surgery Received: 04/25/2023 09:43 PM Pathologist: Rios Tracy MD Specimen: ANTRUM (STOMACH) BIOPSY [facility] Work Phone: Diagnosis Comment d8pzsYIbDAKflCRbZPMx Mlxhb iTcRXKezQUuU9AtiibcNAubFP 4dFX9jlVherUJhqXEyOOPeAfH ax0jta894lODni6tdROALbfle uUt5uWqnQ25ax5Z4CjqkI76tg ZAxTIX9BHHsSDUqqPXhAJDoWP V8BFGhxXDyQ5tsKUEpGP6bppn pEYehEVydGAItdXG1UDLlsZZc M5HpUUUiNWgdEMXjpfq6BkQvG p2iqJTbtHweDLoyPTWhSPUxYE ngPKRdAiXgDR0fFa3ajKltgy0 sqjrkqngbmSUvI82acCX0nKSj ZLB6eZIuNRcwlLwdq1GvE8Ooq iBQeWxvcmkgbGlrZSBvcmdhbm cvmPDkLVJiMXebDJ68zZUjXCN sAgibcq77fFkkHXHEDjOrs4Nt xH5hIRNyOCN8jY1jgu7alIEty Q== [facility] Work Phone: FINAL DIAGNOSIS v7pbxMUrNZWbyFKzVGLf Mlxhb zGsVEQfyYJhK6MlchpjWUoiSC 6iQH5ceHbtmCNvoLIaEUByElZ nv3omh351hUFrd9iiKIEAugjp qQh5iHdqK80qj8S4ZhwwW30ei RTrDHC6JKLaNTCcoWAaKOQtKB U3JRZoiAJaW5omTYSfMD7bjhm aIBrqMCkjCYLfsBL4TCBpyGQq E6CmFGZjZPqhTBUsydc1FiPkO r4gaNWiaElvLIwzFIUcCQUoFS bfQHGlMaViTG2aFLW5q49qP4s kBZNnxZS9mYqtYawmyVQ6Oamq JGYwSWGNKGG6gxumTIKilCLsv GGpr3G1ZLN5vDUfjLSwm1RjPN dpdGggbWlsZCBjaHJvbmljIGl yLUI3dTGsSHicc6PvrRJkwnpf v2UdQFSpiU4inoFoFMIoms9= [facility] Work Phone: Gross Description j0chdPFsIMLfpZXCHIK4 MDFcY W9ooEstfXa2aRxrSPNldaW0cC WwUFskg7xnCTB7u0dsqxJYPgs nQABmUP1xINbgTBQkUP6lCbAm XGRlZmYxXHBhcGVydzEyMjQwX FCpwYNpdYB0CSMiPH3bigrmSJ ciTIlhMULrljO3VISvyNYwY5W wIPDuMH7nmrqmGZK9FSTJMsht Cf6lvMUbhRnoCkAvLwDtPOScN IAzWVVnzGllPTDfOGw0fU2IOg xlWSX5BWXDCsafXgbvcHjuz8X jdCBcXHNnIFxcaWQgNTEwMDAg YOibNjWQGrKgBwZrUhS5VYL6F mCyQEj9CQejDcCWRGjgMOB0SH PaWWi6EMohPOesoUByOTZlBDP xPSIsLCkcykI1y9ztIAHudZFb DMT6PWntz4nyQFxzBNU8ZDCfE jXlNJPeBI5USkRuLST4MQMkME D1TfH1IBa5HFAAGyYpKqGkTxY 1BTh8QtBrRZz0ROy9YQaXFkEb LCa3REA9GPi2VBK4KGm6LWZlG HQgMiBcXHNzIDMgXFxmbCBcXG 3tkBvkIZNpBH1FUKWaOHlsFFS iEvUuAO6dUX4HTaWBAPdPVN8T YKFEARROCL1ZH1xgiEWaJ8hie UVzSJ1NUTPokuPnAQotcBaklG 3yeIArM6ybIoUeQanglTzjTuZ zdERvYzEgDQpcbHRycGFyXGxp bjBccmluMCANClxmczIwIFJlY 1QobgJbDXvgWJXdov8bpZdlQY NqGKNngNe5eWTrKGCmeDMlQZD iq3WghYVjHWZwq9O9YLSnu5O0 TMHjS6npINjkrIajTkN4duOnD eHgjAXyJlEquLUsGyGrQ11eUY KnyZNmdUwlu5FbqPn9cVIdQEg oVE6sTCUhLLJnXAC7MM2wSFEw vsQQXoozWFVwSBkJjx7bnsQny WPrlB3arCcrggVrDLNwq8SiYY TsNJWdY3ubbkPsVR5kLJQgcS9 pYywgOTUwMCBFdWNsaWQgQXZl ApxkW4uqewKfEP6dBCAQNLB3V EX3WUixUCYfCJsiaVYuCC5EHj HrDJciZbHjJnDpDeCpQfI4YPI NXHBhciANClxzYTMwXGVwaWNY e7NrAYISNjgzgXerAzWsvWVsX aH4HEJteRIxBRJ0OF2qtWpbPM CvN3PnH8UbiaS7MSWkohABQjn jVCWeTR1OODYnApMqGAu7 [facility] Work Phone: Performing Lab z7szfFUkUBGhqNXhKtGy MDAwX KWwo2sqCRPqdDJqWzMoUjVjKp DlGtvqaSZkHLAqRbBhc3yhb52 8bHRvm6peDVWrQkL0dWSfBVRk zCBcL843NDCeLRlui3wdo6UgU SSfaPWvl4I5UDSVxkriaSp1dF pcC38dy3A4NkgrS4fpXLIjOCL qV2HyRV0gXVUyOqu3BBE2MLW9 BXAkOFVcY6YhMT3zFWOjlKYaZ Pn8t3nnwKpfAWTcWNV6k4hgVE pcilQgRD6zgf5alBg3r5dvqvT zVEZeMIXmlXKCPTQuQ4OodWkf Jx3inVr3gHpqRdtuIPJ0Jqy1J K4afu73nco3xXvfNFNqtccoEy N0LVbxHCGtfabpEXl9LLlwIWV cbAO2GTCafHCjW8XaTVAmYB9h mzj2HIU5TIlbFSHfPmZ1VBXjz QEoAAKvsOysARfjj939UJI8Wy OkUN4iJ4Uay6X4dI5gmPUfRDN ttELuYiOtYXGwzm6bgKFdSEoj u1AaPCE2fvK3iOFovLObTENtS G21Mwusm4SeMfoxf2CtL76ybF V2LTrrk9vwFU1aVgD4hkMoSQu nt4mstY1ySdM1PUghFJ2nWZ3s JUVxwV4ussopDTAoRuWtovxtJ MXshNvzauQjJi0clMgrXOI7IU nqE2enxH3pHkM8SWriQ4qehN2 pHFf2XKpejTX2ZGGqrF4xVQ9v dzequ8xqBInaSVzxPSZtbaO4e aT5LDYwpJSzB5XfwR9rTDWhUS 1vojwnh6zaFPW3CWzqMLSuMTS 2PuSxBJHmi8Sgkkl1ZsWnh7Xw dLGyGYfqL89nz885CTFbuoDdT 1xwbGFpblxwbGFpblxmMFxmcz M7AYJoSOUvMScdVMAlSTEkCqW cbGFuZzEwMzNcaGljaFxmMVxk AxCbYLQbHOvzV2xbEbYcUsWyG eYDeOZrjl3atYfdNFflrNEuuZ LpdYE4tT0gZNMrevDktm9nPBI fkYYAxZO0VIumggQzK7fxpavy IQFevRKyAMYmpI06YGXBu1Gju XRhbCwgMjAwMDAgSGFydmFyZC elO3RanfKwf8XppSlbRMu0enY KRGS7VRTxFaTpEJIXRZmJXhSb XqRjZtZ6PkSpIVDszjzxUPGmc SPeSQsqxCCoohgiCIpuhgC1KQ BsYWluXGYxXGZzMjJcbGFuZzE wMzNcaGljaFxmMVxkYmNoXGYx VOjlQ1fhOrZxT5AsYRGtCfJjf ZVmF3nqAIQki2YgpQ3nkFWtpE sebA7wTmBdCvOaUaziNO9tZKJ yO8ubnGJfIQCqQTTrC8hmRvXs mM1lfBvyLGyaphLqIKRtdlZpw U1yUzEXHZDzeVqaZ1H9lvFvmI FuLCBNLkQuXHBhcn0= [facility] Work Phone: [facility] Work Phone: EGD Study observation Narrat ivzeenat 04-25-2023 [facility] Patient Name: Cash Michel Procedure Date: 04/25/2023 10:29 AM Date of : 1965 Admit Type: Outpatient Age: 58 Room: [place] [address] Gender: Male Note Status: Finalized Attending MD: Roby Mock MD Procedure: Upper GI endoscopy Indications: Dysphagia Providers: Roby Mock MD Referring Physician: Sebastian Abdalla Jr, DO (Referring MD) Medicines: Propofol per Anesthesia Complications: No immediate complications. Requesting Provider: Procedure: Pre-Anesthesia Assessment: - Prior to the procedure, a History and Physical was performed, and patient medications and allergies were reviewed. The patient's tolerance of previous anesthesia was also reviewed. The risks and benefits of the procedure and the sedation options and risks were discussed with the patient. All questions were answered, and informed consent was obtained. Prior Anticoagulants: The patient has taken no anticoagulant or antiplatelet agents. ASA Grade Assessment: III - A patient with severe systemic disease. After reviewing the risks and benefits, the patient was deemed in satisfactory condition to undergo the procedure. After obtaining informed consent, the endoscope was passed under direct vision. Throughout the procedure, the patient's blood pressure, pulse, and oxygen saturations were monitored continuously. The Endoscope was introduced through the mouth, and advanced to the second part of duodenum. I was present and participated during the entire procedure, including non-gomes portions, and during the administration and monitoring of Moderate Sedation. The upper GI endoscopy was accomplished without difficulty. The patient tolerated the procedure well. Moderate Sedation: MAC anesthesia was administered by the anesthesia team. Findings: The Z-line was irregular and was found 37 cm from the incisors. LA Grade B (one or more mucosal breaks greater than 5 mm, not extending between the tops of two mucosal folds) esophagitis with no bleeding was found 37 cm from the incisors. A 5 cm hiatal hernia was present. The gastric fundus and gastric body were normal. Localized mildly erythematous mucosa without bleeding was found in the gastric antrum. Biopsies were taken with a cold forceps for histology. The duodenal bulb and second portion of the duodenum were normal. Impression: - Z-line irregular, 37 cm from the incisors. - LA Grade B reflux esophagitis with no bleeding. - 5 cm hiatal hernia. - Normal gastric fundus and gastric body. - Erythematous mucosa in the antrum. Biopsied. - Normal duodenal bulb and second portion of the duodenum. Recommendation: - Resume previous diet. - Continue present medications. - Await pathology results. - The patient is not currently taking anticoagulant or antiplatelet agents. - No aspirin, ibuprofen, naproxen, or other non-steroidal anti-inflammatory drugs avoid to prevent stomach ulcers. - Use Prilosec (omeprazole) 40 mg PO BID daily for about 2 months, then by mouth once daily as maintenance medication - Patient has a contact number available for emergencies. The signs and symptoms of potential delayed complications were discussed with the patient. Return to normal activities tomorrow. Written discharge instructions were provided to the patient. Procedure Code(s): --- Professional --- 39810, Esophagogastroduodenoscop y, flexible, transoral; with biopsy, single or multiple CPT copyright 2020 [employer] (more content not included)... PROVATION [facility] Radiology Study observation (narrative) [facility] CARDIAC PERF STRESS[facility] C[facility] Telephone (PTMDRG) ----- CASH MICHEL ([id number]) 1965 [facility] Date Time Provider Department 04/05/23 ABIMBOLA PARTIDA PTMDRG During your visit today, we recorded the following information about you: Abimbola Partida PTA 04/05/2023 3:20 PM Signed Attempted to call patient regarding 3 no shows and policy to cancel future appointments. Phone number does not work Allergies As of Date: 04/05/2023 (No Known Allergies) Date Reviewed: 02/20/2023 Reviewed by: Evert Lauren MA - Fully Assessed Reason for Visit: No Show [[id number]] Cmt: Attempted to call patient regarding 3 no shows and policy to cancel future appointments. Phone number does not work Prescriptions as of 04/05/2023 - amLODIPine (NORVASC) 10 mg tablet Take 2 tablets by mouth once daily. - lisinopril-hydroCHLOROthi azide (ZESTORETIC) 20-12.5 mg per tablet Take 1 tablet by mouth once daily. - metoprolol succinate ER (TOPROL XL) 25 mg 24 hr tablet Take 0.5 tablets by mouth once daily. - albuterol HFA (VENTOLIN HFA) 90 mcg/actuation inhaler Inhale 2 Puffs as instructed every 4 hours as needed for wheezing/shortness of breath. - HYDROcodone-acetaminophen (NORCO) 5-325 mg per tablet Take by mouth. - naproxen (NAPROSYN) 500 mg tablet Take 500 mg by mouth twice daily. - omeprazole (PRILOSEC) 20 mg capsule Take by mouth. - fluticasone-salmeterol (ADVAIR, WIXELA) 250-50 mcg/dose inhaler Inhale as instructed. - acetaminophen (TYLENOL EXTRA STRENGTH ORAL) Take by mouth. Facility-Administered Medications as of 04/05/2023 - perflutren lipid microspheres 1.3 mL in NaCl (PF) 0.9% 10 mL injection (DEFINITY) - sodium chloride 0.9 % (flush) 10 mL (BD POSIFLUSH) Problem List As Of Date 04/05/2023 Noted Resolved HLD (hyperlipidemia) [E78.5] 07/13/2022 Benign prostatic hyperplasia without lower urin*07/13/2022 Vitamin D deficiency [E55.9] 07/13/2022 Neck pain [M54.2] 01/11/2023 Atherosclerosis of chilkat arteries of extremity*02/15/2023 Encounter Status:Closed [facility]OLA PART[facility]PTMDRG) ----- CASH MICHEL ([id number]) 1965 M T Date Time Provider Department 03/29/23 GENIA CASTAÑEDA PTMDRG During your visit today, we recorded the following information about you: Genia Castañeda, PT 03/29/2023 10:10 AM Signed Attempted to call pt to schedule recheck visit as he did not schedule upon departure yesterday. Phone listed is not active. Allergies As of Date: 03/29/2023 (No Known Allergies) Date Reviewed: 02/20/2023 Reviewed by: Evert Lauren MA - Fully Assessed Reason for Visit: Appointment [[id number]] Prescriptions as of 03/29/2023 - amLODIPine (NORVASC) 10 mg tablet Take 2 tablets by mouth once daily. - lisinopril-hydroCHLOROthi azide (ZESTORETIC) 20-12.5 mg per tablet Take 1 tablet by mouth once daily. - metoprolol succinate ER (TOPROL XL) 25 mg 24 hr tablet Take 0.5 tablets by mouth once daily. - albuterol HFA (VENTOLIN HFA) 90 mcg/actuation inhaler Inhale 2 Puffs as instructed every 4 hours as needed for wheezing/shortness of breath. - HYDROcodone-acetaminophen (NORCO) 5-325 mg per tablet Take by mouth. - naproxen (NAPROSYN) 500 mg tablet Take 500 mg by mouth twice daily. - omeprazole (PRILOSEC) 20 mg capsule Take by mouth. - fluticasone-salmeterol (ADVAIR, WIXELA) 250-50 mcg/dose inhaler Inhale as instructed. - acetaminophen (TYLENOL EXTRA STRENGTH ORAL) Take by mouth. Facility-Administered Medications as of 03/29/2023 - perflutren lipid microspheres 1.3 mL in NaCl (PF) 0.9% 10 mL injection (DEFINITY) - sodium chloride 0.9 % (flush) 10 mL (BD POSIFLUSH) Problem List As Of Date 03/29/2023 Noted Resolved HLD (hyperlipidemia) [E78.5] 07/13/2022 Benign prostatic hyperplasia without lower urin*07/13/2022 Vitamin D deficiency [E55.9] 07/13/2022 Neck pain [M54.2] 01/11/2023 Atherosclerosis of chilkat arteries of extremity*02/15/2023 Encounter Status:Closed by GENIA CASTAÑEDA on 03/29/23 [facility] CNTHERAPYon 03-28-2023 CNTHERAPY OT/PT/Speech Visit (PTMDRG) ----- CASH MICHEL ([id number]) 1965 M CHT Date Time Provider Department 03/28/23 2:45 PM ABIMBOLA PARTIDA PTMDRG Date Time Provider Department Center 03/28/2023 2:45 PM [id number], SUSAN PTMDRG [facility] Reason for Visit: Physical Therapy [503] PT Discharge [752] Primary Visit Diagnosis:Neck pain [M54.2] Allergies As of Date: 03/28/2023 (No Known Allergies) Date Reviewed: 02/20/2023 Reviewed by: Evert Lauren MA - Fully Assessed Prescriptions as of 10/10/2023 - cetirizine (ZYRTEC) 10 mg tablet Take 1 tablet by mouth once daily. - aspirin, enteric coated (ECOTRIN LOW STRENGTH) 81 mg EC tablet Take 1 tablet by mouth once daily. - rosuvastatin (CRESTOR) 20 mg tablet Take 1 tablet by mouth daily at bedtime. - budesonide-formoterol (SYMBICORT) 160-4.5 mcg/actuation inhaler Inhale 2 Puffs as instructed twice daily. - omeprazole (PRILOSEC) 40 mg capsule Take 1 capsule by mouth twice daily. - amLODIPine (NORVASC) 10 mg tablet Take 2 tablets by mouth once daily. - lisinopril-hydroCHLOROthi azide (ZESTORETIC) 20-12.5 mg per tablet Take 1 tablet by mouth once daily. - metoprolol succinate ER (TOPROL XL) 25 mg 24 hr tablet Take 0.5 tablets by mouth once daily. - albuterol HFA (VENTOLIN HFA) 90 mcg/actuation inhaler Inhale 2 Puffs as instructed every 4 hours as needed for wheezing/shortness of breath. - acetaminophen (TYLENOL EXTRA STRENGTH ORAL) Take by mouth. Facility-Administered Medications as of 10/10/2023 - lidocaine (PF) 10 mg/mL (1 %) 1-2 mg injection (XYLOCAINE) - lactated ringers iv infusion - perflutren lipid microspheres 1.3 mL in NaCl (PF) 0.9% 10 mL injection (DEFINITY) - sodium chloride 0.9 % (flush) 10 mL (BD POSIFLUSH) ----- [facility] CNTHERAPYon 03-01-2023 CNTHERAPY OT/PT/Speech Visit (PTMDRG) ----- CASH MICHEL ([id number]) 1965 M T Date Time Provider Department 03/01/23 6:00 PM GENIA CASTAÑEDA PTMDRG Date Time Provider Department Center 03/01/2023 6:00 PM [id number] CASTAÑEDA PTMDRG [facility] Reason for Visit: PT Progress Note [9256] Primary Visit Diagnosis:Neck pain [M54.2] Other Visit Diagnosis:Chronic left shoulder pain [M25.512, G89.29] Allergies As of Date: 03/01/2023 (No Known Allergies) Date Reviewed: 02/20/2023 Reviewed by: Evert Lauren MA - Fully Assessed Prescriptions as of 03/01/2023 - amLODIPine (NORVASC) 10 mg tablet Take 2 tablets by mouth once daily. - lisinopril-hydroCHLOROthi azide (ZESTORETIC) 20-12.5 mg per tablet Take 1 tablet by mouth once daily. - metoprolol succinate ER (TOPROL XL) 25 mg 24 hr tablet Take 0.5 tablets by mouth once daily. - albuterol HFA (VENTOLIN HFA) 90 mcg/actuation inhaler Inhale 2 Puffs as instructed every 4 hours as needed for wheezing/shortness of breath. - HYDROcodone-acetaminophen (NORCO) 5-325 mg per tablet Take by mouth. - naproxen (NAPROSYN) 500 mg tablet Take 500 mg by mouth twice daily. - omeprazole (PRILOSEC) 20 mg capsule Take by mouth. - fluticasone-salmeterol (ADVAIR, WIXELA) 250-50 mcg/dose inhaler Inhale as instructed. - acetaminophen (TYLENOL EXTRA STRENGTH ORAL) Take by mouth. Facility-Administered Medications as of 03/01/2023 - perflutren lipid microspheres 1.3 mL in NaCl (PF) 0.9% 10 mL injection (DEFINITY) - sodium chloride 0.9 % (flush) 10 mL (BD POSIFLUSH) ----- [facility] Absolute lymphocyte countOrd ered By: ED PROVIDER on 02-08-2023 Lymphocytes Auto (Unsp spec) [#/Vol] 2.17 10*3/uL 0.83-4.51 [facility] Absolute lymphocyte countOrd ered By: Shreya Cat on 02-08-2023 Lymphocytes Auto (Unsp spec) [#/Vol] 2.01 10*3/uL 0.83-4.51 [facility] Basophil percentageOrdered B y: ED PROVIDER on 02-08-2023 Basophils/100 WBC (Bld) 0.5 % 0-1 [facility] Chloride [Moles/Vol] 101 mmol/L 98-107 [facility] Eosinophils/100 WBC (Bld) 0.7 % 0-5 [facility] Glucose [Mass/Vol] 128 mg/dL 74-106 [facility] Comment on above: Fasting Glucose resu lt greater than or equal to 126 mg/dL suggests DIABETES MELLITUS per A.D.A. criteria. Neutrophils (Bld) [#/Vol] 6.4 10*3/uL 2.0-7.7 [facility] Neutrophils/100 WBC (Bld) 67.4 % 47-70 [facility] Potassium [Moles/Vol] 3.6 mmol/L 3.5-5.1 [facility] Sodium [Moles/Vol] 135 mmol/L 136-145 [facility] WBC (Bld) [#/Vol] 9.5 10*3/uL 4.4-11.0 [facility] Basophil percentageOrdered B y: Shreya Cat on 02-08-2023 Basophil percentage 2.1 mg/dL 2.5-4.9 [facility] Basophils/100 WBC (Bld) 0.7 % 0-1 [facility] Bilirubin [Mass/Vol] 0.30 mg/dL 0.20-1.00 [facility] Comment on above: For patients on eltr ombopag therapy, use of Dimension [place] TBIL is not recommended. Chloride [Moles/Vol] 103 mmol/L 98-107 [facility] Eosinophils/100 WBC (Bld) 0.7 % 0-5 [facility] Glucose [Mass/Vol] 94 mg/dL 74-106 [facility] Neutrophils (Bld) [#/Vol] 6.8 10*3/uL 2.0-7.7 [facility] Neutrophils/100 WBC (Bld) 67.9 % 47-70 [facility] Potassium [Moles/Vol] 4.1 mmol/L 3.5-5.1 [facility] Protein [Mass/Vol] 8.0 g/dL 6.4-8.2 [facility] Sodium [Moles/Vol] 133 mmol/L 136-145 [facility] WBC (Bld) [#/Vol] 10.1 10*3/uL 4.4-11.0 [facility] Blood erythrocytes count (nu mber/volume)Ordered By: ED PROVIDER on 02-08-2023 RBC (Bld) [#/Vol] 5.28 10*6/uL 4.6-6.2 [facility] Blood erythrocytes count (nu mber/volume)Ordered By: Shreya Cat on 02-08-2023 RBC (Bld) [#/Vol] 5.25 10*6/uL 4.6-6.2 [facility] Blood hemoglobin measurement (mass/volume)Ordered By: ED PROVIDER on 02-08-2023 Hemoglobin (Bld) [Mass/Vol] 14.2 g/dL 13.0-16.5 [facility] Blood hemoglobin measurement (mass/volume)Ordered By: Shreya Cat on 02-08-2023 Hemoglobin (Bld) [Mass/Vol] 14.1 g/dL 13.0-16.5 [facility] Blood lymphocytes/100 leukoc ytesOrdered By: ED PROVIDER on 02-08-2023 Lymphocytes/100 WBC (Bld) 22.9 % 19-41 [facility] Blood lymphocytes/100 leukoc ytesOrdered By: Shreya Cat on 02-08-2023 Lymphocytes/100 WBC (Bld) 20.0 % - [facility] Blood monocytes/100 leukocyt esOrdered By: ED PROVIDER on 02-08-2023 Monocytes/100 WBC (Bld) 8.2 % 0-10 [facility] Blood monocytes/100 leukocyt esOrdered By: Shreya Cat on 02-08-2023 Monocytes/100 WBC (Bld) 10.2 % 0-10 [facility] Blood platelet mean volumeOr dered By: ED PROVIDER on 02-08-2023 Platelet mean volume (Bld) [Entitic vol] 10.5 fL 6.2-12.0 [facility] Blood platelet mean volumeOr dered By: Shreya Cat on 02-08-2023 Platelet mean volume (Bld) [Entitic vol] 10.8 fL 6.2-12.0 [facility] Determination of erythrocyte mean corpuscular volume (MCV)Ordered By: ED PROVIDER on 02-08-2023 MCV (RBC) [Entitic vol] 85.0 fL 80-94 [facility] Determination of erythrocyte mean corpuscular volume (MCV)Ordered By: Shreya Cat on 02-08-2023 MCV (RBC) [Entitic vol] 86.3 fL 80-94 [facility] Hematocrit Auto (Bld) [Volum e fraction]Ordered By: ED PROVIDER on 02-08-2023 Hematocrit (Bld) [Volume fraction] 44.9 % 40-54 [facility] Hematocrit Auto (Bld) [Volum e fraction]Ordered By: Shreya Cat on 02-08-2023 Hematocrit (Bld) [Volume fraction] 45.3 % 40-54 [facility] Laboratory - Chemistry and C hemistry - challengeOrdered By: ED PROVIDER on 02-08-2023 CO2 [Moles/Vol] 25.0 mmol/L 21.0-32.0 [facility] Urea nitrogen/Creatinine [Mass ratio] 16.7 mg/mg 07-21 [facility] Laboratory - Chemistry and C hemistry - challengeOrdered By: Shreya Cat on 02-08-2023 ALP [Catalytic activity/Vol] 64 U/L 45-117 [facility] ALT [Catalytic activity/Vol] 27 U/L 16-61 [facility] CO2 [Moles/Vol] 26.0 mmol/L 21.0-32.0 [facility] Globulin (S) [Mass/Vol] 4.3 g/dL 2.2-4.2 [facility] Magnesium [Mass/Vol] 2.5 mg/dL 1.6-2.6 [facility] Urea nitrogen/Creatinine [Mass ratio] 16.9 mg/mg 10 [facility] Laboratory - Hematology and Cell countsOrdered By: ED PROVIDER on 02-08-2023 Erythrocyte distribution width (RBC) [Entitic vol] 39.7 fL 35.1-43.9 [facility] Erythrocyte distribution width (RBC) [Ratio] 12.9 % 11.6-14.6 [facility] Immature granulocytes/100 WBC (Bld) 0.300 % 0.0-0.9 [facility] Comment on above: IG% - Immature Granu locytes (promyelocytes, myelocytes and metamyelocytes) > 1% indicates that a LEFT SHIFT is Present. MCH (RBC) [Entitic mass] 26.9 pg 27.0-32.0 [facility] Nucleated RBC/100 WBC (Bld) [Ratio] 0 % 0-5 [facility] Laboratory - Hematology and Cell countsOrdered By: Shreya Cat on 02-08-2023 Erythrocyte distribution width (RBC) [Entitic vol] 39.5 fL 35.1-43.9 [facility] Erythrocyte distribution width (RBC) [Ratio] 12.7 % 11.6-14.6 [facility] Immature granulocytes/100 WBC (Bld) 0.500 % 0.0-0.9 [facility] Comment on above: IG% - Immature Granu locytes (promyelocytes, myelocytes and metamyelocytes) > 1% indicates that a LEFT SHIFT is Present. MCH (RBC) [Entitic mass] 26.9 pg 27.0-32.0 [facility] Nucleated RBC/100 WBC (Bld) [Ratio] 0 % 0-5 [facility] MCHC Auto (RBC) [Mass/Vol]Or dered By: ED PROVIDER on 02-08-2023 MCHC (RBC) [Mass/Vol] 31.6 g/dL 32-36 [facility] MCHC Auto (RBC) [Mass/Vol]Or dered By: Shreya Cat on 02-08-2023 MCHC (RBC) [Mass/Vol] 31.1 g/dL 32-36 [facility] No Panel InformationOrdered By: ED PROVIDER on 02-08-2023 Estimated Creatinine Clearance Calc 61.07 ml/min [facility] Estimated GFR (MDRD) Amer 75 mL/min >60 [facility] Comment on above: GFR Calc Estimated GFR (MDRD) Non-Af Amer 62 mL/min >60 [facility] Comment on above: Non- GFR Calc Troponin I High Sensitivity 8 pg/mL 3.0-78.0 [facility] Comment on above: Please Note: New Leigh t Units and Gender Specific Reference Ranges. For more information see Policy Stat Procedure [place] High Sensitivity Troponin (TNIH) and attachments. No Panel InformationOrdered By: Shreya Cat on 02-08-2023 D-Dimer Quantitative (PE/DVT) 1.08 FEU/ug/m 0.27-0.49 [facility] Comment on above: D-Dimer ELEVATED (>0 .49): Additional studies and clinicalassessments are indicated to conclude diagnosis of:Deep Vein Thrombosis (DVT) or Pulmonary Embolism (PE)CRITICAL VALUE VERIFIED. CALLED TO DR. [id number] Dianne Hamm.RESULTS READ BACK BY SAME . Estimated GFR (MDRD) Amer 77 mL/min >60 [facility] Comment on above: GFR Calc Estimated GFR (MDRD) Non-Af Amer 63 mL/min >60 [facility] Comment on above: Non- GFR Calc Troponin I High Sensitivity 5 pg/mL 3.0-78.0 [facility] Comment on above: Please Note: New Leigh t Units and Gender Specific Reference Ranges. For more information see Policy Stat Procedure [place] High Sensitivity Troponin (TNIH) and attachments. Platelets bldOrdered By: ED PROVIDER on 02-08-2023 Platelets (Bld) [#/Vol] 314 10*3/uL 150-450 [facility] Platelets bldOrdered By: Pipo Cat on 02-08-2023 Platelets (Bld) [#/Vol] 334 10*3/uL 150-450 [facility] Serum or plasma C reactive p rotein measurement (mass/volume)Ordered By: Shreya Cat on 02-08-2023 CRP [Mass/Vol] 3.41 mg/L 0.0-3.0 [facility] Comment on above: C-Reactive Protein ( CRP) provides useful information for thediagnosis, therapy and monitoring of inflammatory processesand associated diseases. For the evaluation of Relative Riskfor Cardiovascular Disease, a High Sensitivity CRP (HSCRP)should be ordered. Serum or plasma albumin zunilda urement (mass/volume)Ordered By: Shreya Cat on 02-08-2023 Albumin [Mass/Vol] 3.7 g/dL 3.2-5.0 [facility] Serum or plasma albumin/glob ulin mass ratioOrdered By: Shreya Cat on 02-08-2023 Albumin/Globulin [Mass ratio] 0.9 {ratio} 0.9-2.4 [facility] Serum or plasma calcium zunilda urement (mass/volume)Ordered By: ED PROVIDER on 02-08-2023 Calcium [Mass/Vol] 9.2 mg/dL 8.5-10.1 [facility] Serum or plasma calcium zunilda urement (mass/volume)Ordered By: Shreya Cat on 02-08-2023 Calcium [Mass/Vol] 9.0 mg/dL 8.5-10.1 [facility] Serum or plasma creatinine m easurement (mass/volume)Ordered By: ED PROVIDER on 02-08-2023 Creatinine [Mass/Vol] 1.26 mg/dL 0.70-1.30 [facility] Comment on above: The validity of the calculated GFR & GFRAA in patients over 70 years has not been determined. Clinical correlation is essential. Serum or plasma creatinine m easurement (mass/volume)Ordered By: Shreya Cat on 02-08-2023 Creatinine [Mass/Vol] 1.24 mg/dL 0.70-1.30 [facility] Comment on above: The validity of the calculated GFR & GFRAA in patients over 70 years has not been determined. Clinical correlation is essential. Serum or plasma urea nitroge n measurement (mass/volume)Ordered By: ED PROVIDER on 02-08-2023 Urea nitrogen [Mass/Vol] 21 mg/dL 04-18 [facility] Serum or plasma urea nitroge n measurement (mass/volume)Ordered By: Shreya Cat on 02-08-2023 Urea nitrogen [Mass/Vol] 21 mg/dL 04-18 [facility] Thin prep Papanicolaou smear with manual screeningOrdered By: ED PROVIDER on 02-08-2023 Thin prep Papanicolaou smear with manual screening 9 5- [facility] Thin prep Papanicolaou smear with manual screeningOrdered By: Shreya Cat on 02-08-2023 Thin prep Papanicolaou smear with manual screening 23 U/L 15-37 [facility] Thin prep Papanicolaou smear with manual screening 4 5-15 [facility] CBC W Auto Differential pane l (Bld)on 01-31-2023 Basophils (Bld) [#/Vol] 0.09 10*3/uL <0.11 k/uL [facility] Basophils/100 WBC (Bld) 1.1 % [facility] Differential cell count method Nom (Bld) Auto [facility] Eosinophils (Bld) [#/Vol] 0.11 10*3/uL <0.46 k/uL [facility] Eosinophils/100 WBC (Bld) 1.4 % [facility] Erythrocyte distribution width (RBC) [Ratio] 13.2 % 11.5 - 15.0 % [facility] Hematocrit (Bld) [Volume fraction] 46.8 % 39.0 - 51.0 % [facility] Hemoglobin (Bld) [Mass/Vol] 14.8 g/dL 13.0 - 17.0 g/dL [facility] Immature granulocytes (Bld) [#/Vol] <0.10 k/uL [facility] Immature granulocytes/100 WBC (Bld) 0.3 % [facility] Lymphocytes (Bld) [#/Vol] 2.58 10*3/uL 1.00 - 4.00 k/uL [facility] Lymphocytes/100 WBC (Bld) 32.3 % [facility] MCH (RBC) [Entitic mass] 27.7 pg 26.0 - 34.0 pg [facility] MCHC (RBC) [Mass/Vol] 31.6 g/dL 30.5 - 36.0 g/dL [facility] MCV (RBC) [Entitic vol] 87.5 fL 80.0 - 100.0 fL [facility] Monocytes (Bld) [#/Vol] 0.68 10*3/uL <0.87 k/uL [facility] Monocytes/100 WBC (Bld) 8.5 % [facility] Neutrophils (Bld) [#/Vol] 4.52 10*3/uL 1.45 - 7.50 k/uL [facility] Neutrophils/100 WBC (Bld) 56.4 % [facility] Nucleated RBC (Bld) [#/Vol] <0.01 k/uL [facility] Nucleated RBC/100 WBC (Bld) [Ratio] 0.0 /100 WBC [facility] Platelet mean volume (Bld) [Entitic vol] 10.7 fL 9.0 - 12.7 fL [facility] Platelets (Bld) [#/Vol] 329 10*3/uL 150 - 400 k/uL [facility] RBC (Bld) [#/Vol] 5.35 10*6/uL 4.20 - 6.00 m/uL [facility] WBC (Bld) [#/Vol] 8.00 10*3/uL 3.70 - 11.00 k/uL [facility] CNTHERAPYon 01-27-2023 CNTHERAPY OT/PT/Speech Visit (PTMDRG) ----- CASH MICHEL ([id number]) 1965 M T Date Time Provider Department 01/27/23 11:00 AM GENIA CASTAÑEDA PTMDRG Date Time Provider Department Center 01/27/2023 11:00 AM [id number] CASTAÑEDA PTMDRG [facility] Reason for Visit: Physical Therapy [503] Primary Visit Diagnosis:Neck pain [M54.2] Allergies As of Date: 01/27/2023 (No Known Allergies) Date Reviewed: 01/06/2023 Reviewed by: Mildred Cat - Fully Assessed Prescriptions as of 01/27/2023 - HYDROcodone-acetaminophen (NORCO) 5-325 mg per tablet Take by mouth. - naproxen (NAPROSYN) 500 mg tablet Take 500 mg by mouth twice daily. - amoxicillin-clavulanic acid (AUGMENTIN) 875-125 mg per tablet Take 1 tablet by mouth twice daily. - amLODIPine (NORVASC) 10 mg tablet 20 mg. - amLODIPine (NORVASC) 5 mg tablet Take by mouth. - amLODIPine (NORVASC) 5 mg tablet Take 5 mg by mouth once daily. - lisinopril (ZESTRIL) 20 mg tablet - omeprazole (PRILOSEC) 20 mg capsule Take by mouth. - fluticasone-salmeterol (ADVAIR, WIXELA) 250-50 mcg/dose inhaler Inhale as instructed. - acetaminophen (TYLENOL EXTRA STRENGTH ORAL) Take by mouth. - predniSONE (DELTASONE) 20 mg tablet 2 pills daily x 3 days, then 1 pill daily x 4 days, then 1/2 pill daily x 4 days. - albuterol HFA (VENTOLIN HFA) 90 mcg/actuation inhaler Inhale 2 Puffs as instructed every 4 hours as needed for Wheezing/Shortness of Breath. ----- [facility] CNTHERAPYon 01-23-2023 CNTHERAPY OT/PT/Speech Visit (PTMDRG) ----- CASH MICHEL ([id number]) 1965 M CHT Date Time Provider Department 01/23/23 10:30 AM USMAN AVENDAÑO Date Time Provider Department Center 01/23/2023 10:30 AM [id number] AVENDAÑO PTMGRETA [facility] Reason for Visit: Physical Therapy [503] Primary Visit Diagnosis:Neck pain [M54.2] Allergies As of Date: 01/23/2023 (No Known Allergies) Date Reviewed: 01/06/2023 Reviewed by: Mildred Cat - Fully Assessed Prescriptions as of 01/23/2023 - HYDROcodone-acetaminophen (NORCO) 5-325 mg per tablet Take by mouth. - naproxen (NAPROSYN) 500 mg tablet Take 500 mg by mouth twice daily. - amoxicillin-clavulanic acid (AUGMENTIN) 875-125 mg per tablet Take 1 tablet by mouth twice daily. - amLODIPine (NORVASC) 10 mg tablet 20 mg. - amLODIPine (NORVASC) 5 mg tablet Take by mouth. - amLODIPine (NORVASC) 5 mg tablet Take 5 mg by mouth once daily. - lisinopril (ZESTRIL) 20 mg tablet - omeprazole (PRILOSEC) 20 mg capsule Take by mouth. - fluticasone-salmeterol (ADVAIR, WIXELA) 250-50 mcg/dose inhaler Inhale as instructed. - acetaminophen (TYLENOL EXTRA STRENGTH ORAL) Take by mouth. - predniSONE (DELTASONE) 20 mg tablet 2 pills daily x 3 days, then 1 pill daily x 4 days, then 1/2 pill daily x 4 days. - albuterol HFA (VENTOLIN HFA) 90 mcg/actuation inhaler Inhale 2 Puffs as instructed every 4 hours as needed for Wheezing/Shortness of Breath. ----- [facility] CNTHERAPYon 01-13-2023 CNTHERAPY OT/PT/Speech Visit (PTMDRG) ----- CASH MICHEL ([id number]) 1965 M [facility] Date Time Provider Department 01/13/23 10:00 AM USMAN AVENDAÑO Date Time Provider Department [place] 01/13/2023 10:00 AM [id number] AVENDAÑO PTMGRETA [facility] Reason for Visit: Physical Therapy [503] Primary Visit Diagnosis:Neck pain [M54.2] Allergies As of Date: 01/13/2023 (No Known Allergies) Date Reviewed: 01/06/2023 Reviewed by: Mildred Cat - Fully Assessed Prescriptions as of 01/13/2023 - HYDROcodone-acetaminophen (NORCO) 5-325 mg per tablet Take by mouth. - naproxen (NAPROSYN) 500 mg tablet Take 500 mg by mouth twice daily. - amoxicillin-clavulanic acid (AUGMENTIN) 875-125 mg per tablet Take 1 tablet by mouth twice daily. - amLODIPine (NORVASC) 10 mg tablet 20 mg. - amLODIPine (NORVASC) 5 mg tablet Take by mouth. - amLODIPine (NORVASC) 5 mg tablet Take 5 mg by mouth once daily. - lisinopril (ZESTRIL) 20 mg tablet - omeprazole (PRILOSEC) 20 mg capsule Take by mouth. - fluticasone-salmeterol (ADVAIR, WIXELA) 250-50 mcg/dose inhaler Inhale as instructed. - acetaminophen (TYLENOL EXTRA STRENGTH ORAL) Take by mouth. - predniSONE (DELTASONE) 20 mg tablet 2 pills daily x 3 days, then 1 pill daily x 4 days, then 1/2 pill daily x 4 days. - albuterol HFA (VENTOLIN HFA) 90 mcg/actuation inhaler Inhale 2 Puffs as instructed every 4 hours as needed for Wheezing/Shortness of Breath. ----- [facility] CNTHERAPYon 01-11-2023 CNTHERAPY OT/PT/Speech Visit (PTMDRG) ----- CASH MICHEL ([id number]) 1965 M T Date Time Provider Department 01/11/23 4:00 PM USMAN AVENDAÑO Date Time Provider Department [place] 01/11/2023 4:00 PM [id number] AVENDAÑO PTMGRETA [facility] Reason for Visit: Physical Therapy [503] Primary Visit Diagnosis:Neck pain [M54.2] Allergies As of Date: 01/11/2023 (No Known Allergies) Date Reviewed: 01/06/2023 Reviewed by: Mildred Cat - Fully Assessed Prescriptions as of 01/11/2023 - HYDROcodone-acetaminophen (NORCO) 5-325 mg per tablet Take by mouth. - naproxen (NAPROSYN) 500 mg tablet Take 500 mg by mouth twice daily. - amoxicillin-clavulanic acid (AUGMENTIN) 875-125 mg per tablet Take 1 tablet by mouth twice daily. - amLODIPine (NORVASC) 10 mg tablet 20 mg. - amLODIPine (NORVASC) 5 mg tablet Take by mouth. - amLODIPine (NORVASC) 5 mg tablet Take 5 mg by mouth once daily. - lisinopril (ZESTRIL) 20 mg tablet - omeprazole (PRILOSEC) 20 mg capsule Take by mouth. - fluticasone-salmeterol (ADVAIR, WIXELA) 250-50 mcg/dose inhaler Inhale as instructed. - acetaminophen (TYLENOL EXTRA STRENGTH ORAL) Take by mouth. - predniSONE (DELTASONE) 20 mg tablet 2 pills daily x 3 days, then 1 pill daily x 4 days, then 1/2 pill daily x 4 days. - albuterol HFA (VENTOLIN HFA) 90 mcg/actuation inhaler Inhale 2 Puffs as instructed every 4 hours as needed for Wheezing/Shortness of Breath. ----- [facility] CNTHERAPYon 01-05-2023 CNTHERAPY OT/PT/Speech Visit (PTMDRG) ----- JING MICHELNETH A ([id number]) 1965 M CHT Date Time Provider Department 01/05/23 1:45 PM GENIA CASTAÑEDA PTMDRG Date Time Provider Department Center 01/05/2023 1:45 PM [id number] CASTAÑEDA PTMDRG [facility] Reason for Visit: PT Eval [747] Patient Education [91] Visit Diagnosis:Neck pain [M54.2] Allergies As of Date: 01/05/2023 (No Known Allergies) Date Reviewed: 12/20/2022 Reviewed by: Evert Lauren MA - Fully Assessed Prescriptions as of 01/05/2023 - HYDROcodone-acetaminophen (NORCO) 5-325 mg per tablet Take by mouth. - naproxen (NAPROSYN) 500 mg tablet Take 500 mg by mouth twice daily. - amoxicillin-clavulanic acid (AUGMENTIN) 875-125 mg per tablet Take 1 tablet by mouth twice daily. - amLODIPine (NORVASC) 10 mg tablet 20 mg. - amLODIPine (NORVASC) 5 mg tablet Take by mouth. - amLODIPine (NORVASC) 5 mg tablet Take 5 mg by mouth once daily. - lisinopril (ZESTRIL) 20 mg tablet - omeprazole (PRILOSEC) 20 mg capsule Take by mouth. - fluticasone-salmeterol (ADVAIR, WIXELA) 250-50 mcg/dose inhaler Inhale as instructed. - acetaminophen (TYLENOL EXTRA STRENGTH ORAL) Take by mouth. - predniSONE (DELTASONE) 20 mg tablet 2 pills daily x 3 days, then 1 pill daily x 4 days, then 1/2 pill daily x 4 days. - albuterol HFA (VENTOLIN HFA) 90 mcg/actuation inhaler Inhale 2 Puffs as instructed every 4 hours as needed for Wheezing/Shortness of Breath. ----- [facility] XR Cervical spine AP and Lat eral and obliqueon 12-29-2022 IMPRESSION: Mild degenerative disc disease and facet joint arthropathy. If there is persistent clinical concern for nondisplaced fracture, then CT or MRI is suggested. Landscape Gardener: CRISTAL Transcribe Date/Time: Dec 29 2022 12:07P Dictated by : CA REED MD This examination was interpreted and the report reviewed and electronically signed by: CA REED MD on Dec 29 2022 12:09PM [facility] DIVISION OF RADIOLOGY * * *Final Report* * * DATE OF EXAM: Dec 20 2022 2:35PM [id number] - XR CERVICAL 4V AP/LAT/OBL / PROCEDURE REASON: Neck pain * * * * Physician Interpretation * * * * EXAMINATION: XR CERVICAL 4V AP/LAT/OBL HISTORY: neck pain, dizziness, pt. fell Neck pain . TECHNIQUE: XR CERVICAL 4V AP/LAT/OBL COMPARISON: CT cervical spine on 03/19/2021 RESULT: No fracture or traumatic malalignment identified. Mild disc height loss at C3-4 and C4-5. Mild facet joint arthropathy throughout the cervical spine. No moderate or severe osseous neural foraminal stenosis. The prevertebral soft tissues are unremarkable. DIVISION OF RADIOLOGY Provider, [facility] Zaira [facility] - 12/29/2022 * * *Final Report* * * DATE OF EXAM: Dec 20 2022 2:35PM [id number] - XR CERVICAL 4V AP/LAT/OBL / PROCEDURE REASON: Neck pain * * * * Physician Interpretation * * * * EXAMINATION: XR CERVICAL 4V AP/LAT/OBL HISTORY: neck pain, dizziness, pt. fell Neck pain . TECHNIQUE: XR CERVICAL 4V AP/LAT/OBL COMPARISON: CT cervical spine on 03/19/2021 RESULT: No fracture or traumatic malalignment identified. Mild disc height loss at C3-4 and C4-5. Mild facet joint arthropathy throughout the cervical spine. No moderate or severe osseous neural foraminal stenosis. The prevertebral soft tissues are unremarkable. IMPRESSION IMPRESSION: Mild degenerative disc disease and facet joint arthropathy. If there is persistent clinical concern for nondisplaced fracture, then CT or MRI is suggested. Landscape Gardener: PSC[facility] Transcribe Date/Time: Dec 29 2022 12:07P Dictated by : CA REED MD This examination was interpreted and the report reviewed and electronically signed by: CA REED MD on Dec 29 2022 12:09PM EST [facility] No Panel InformationOrdered By: Ccf Provider on 12-20-2022 [facility] No Panel Informationon 12-20 Radiology Study observation (narrative) [facility] XR ELBOW GENERAL 2V AP/LAT L EFTon 12-20-2022 [facility] XR Elbow - left AP and Later corey 12-20-2022 IMPRESSION: No acute osseous injury. Findings suggestive olecranon bursitis. Landscape Gardener[facility] Transcribe Date/Time: Dec 20 2022 2:43P Dictated by : LARRY SAUCEDO MD This examination was interpreted and the report reviewed and electronically signed by: LARRY SAUCEDO MD on Dec 20 2022 2:44PM EST DIVISION OF RADIOLOGY * * *Final Report* * * DATE OF EXAM: Dec 20 2022 2:37PM [id number] - XR ELBOW 2V AP/LAT LT / PROCEDURE REASON: Left elbow pain * * * * Physician Interpretation * * * * HISTORY: Left elbow pain TECHNIQUE: XR ELBOW 2V AP/LAT LT COMPARISON: None RESULT: No acute fracture or dislocation. Joint spaces are maintained. No elbow joint effusion. Prominent soft tissue swelling adjacent to the olecranon process may reflect bursitis. DIVISION OF RADIOLOGY Provider, [facility] - 12/20/2022 * * *Final Report* * * DATE OF EXAM: Dec 20 2022 2:37PM [id number] [id number] - XR ELBOW 2V AP/LAT LT / PROCEDURE REASON: Left elbow pain * * * * Physician Interpretation * * * * HISTORY: Left elbow pain TECHNIQUE: XR ELBOW 2V AP/LAT LT COMPARISON: None RESULT: No acute fracture or dislocation. Joint spaces are maintained. No elbow joint effusion. Prominent soft tissue swelling adjacent to the olecranon process may reflect bursitis. IMPRESSION IMPRESSION: No acute osseous injury. Findings suggestive olecranon bursitis. Landscape Gardener: [facility] Transcribe Date/Time: Dec 20 2022 2:43P Dictated by : LARRY SAUCEDO MD This examination was interpreted and the report reviewed and electronically signed by: LARRY SAUCEDO MD on Dec 20 2022 2:44PM EST [facility] XR SHOULDER GENERAL 3V OR MO RE AP/TRUE AP/OTHER LEFTon 12-20-2022 [facility] XR Shoulder - left 3 Viewson 12-20-2022 IMPRESSION: No acute osseous abnormality. Landscape Gardener: [facility] Transcribe Date/Time: Dec 20 2022 2:45P Dictated by : LARRY SAUCEDO MD This examination was interpreted and the report reviewed and electronically signed by: LARRY SAUCEDO MD on Dec 20 2022 2:45PM EST DIVISION OF RADIOLOGY * * *Final Report* * * DATE OF EXAM: Dec 20 2022 2:35PM [id number] - XR SHLDR >/=3V AP/STEPHY AP/OTHR LT / PROCEDURE REASON: multiple diagnoses * * * * Physician Interpretation * * * * LEFT SHOULDER RADIOGRAPHS: CLINICAL HISTORY: Chronic left shoulder pain Chronic left shoulder pain TECHNIQUE: 3 views of the left shoulder were obtained. COMPARISON: No available comparisons RESULT: No acute fracture or dislocation. Glenohumeral joint space is maintained. Acromiohumeral interval is normal. Acromioclavicular joint is intact. DIVISION OF RADIOLOGY Provider, [facility] - 12/20/2022 * * *Final Report* * * DATE OF EXAM: Dec 20 2022 2:35PM [id number] - XR SHLDR >/=3V AP/STEPHY AP/OTHR LT / PROCEDURE REASON: multiple diagnoses * * * * Physician Interpretation * * * * LEFT SHOULDER RADIOGRAPHS: CLINICAL HISTORY: Chronic left shoulder pain Chronic left shoulder pain TECHNIQUE: 3 views of the left shoulder were obtained. COMPARISON: No available comparisons RESULT: No acute fracture or dislocation. Glenohumeral joint space is maintained. Acromiohumeral interval is normal. Acromioclavicular joint is intact. IMPRESSION IMPRESSION: No acute osseous abnormality. Landscape Gardener: [facility] Transcribe Date/Time: Dec 20 2022 2:45P Dictated by : LARRY SAUCEDO MD This examination was interpreted and the report reviewed and electronically signed by: LARRY SAUCEDO MD on Dec 20 2022 2:45PM [facility] INHOUSE COVID 19 (ONLY) RAPI D ([id number])Ordered By: Yvette Hernandez on 09-28-2022 SARS-CoV-2 (COVID-19) RNA BRISEIDA+probe Ql (Unsp spec) Negative Normal [facility]; [facility] Work Phone: Inhouse FLU A+B DIRECT AG, ( RAPID) ([id number])Ordered By: Yvette Hernandez on 09-28-2022 FLUAV+FLUBV Ag Ql (Unsp spec) Negative Normal [facility]; [facility] Work Phone: Absolute lymphocyte counton 07-08-2022 Lymphocytes Auto (Unsp spec) [#/Vol] 1.48 10*3/uL 0.83-4.51 [facility] Work Phone: Basophil percentageon 2021 Basophils/100 WBC (Bld) 0.9 % 0-1 [facility] Work Phone: Chloride [Moles/Vol] 106 mmol/L 98-107 [facility] Work Phone: Eosinophils/100 WBC (Bld) 0.5 % 0-5 [facility] Work Phone: Glucose [Mass/Vol] 89 mg/dL 74-106 [facility] Work Phone: Neutrophils (Bld) [#/Vol] 3.8 10*3/uL 2.0-7.7 [facility] Work Phone: Neutrophils/100 WBC (Bld) 57.9 % 47-70 [facility] Work Phone: Potassium [Moles/Vol] 3.8 mmol/L 3.5-5.1 [facility] Work Phone: Sodium [Moles/Vol] 138 mmol/L 136-145 [facility] Work Phone: WBC (Bld) [#/Vol] 6.6 10*3/uL 4.4-11.0 [facility] Work Phone: Blood erythrocytes count (nu mber/volume)on 07-08-2022 RBC (Bld) [#/Vol] 5.50 10*6/uL 4.6-6.2 [facility] Work Phone: Blood hemoglobin measurement (mass/volume)on 07-08-2022 Hemoglobin (Bld) [Mass/Vol] 15.0 g/dL 13.0-16.5 [facility] Work Phone: Blood lymphocytes/100 leukoc yteson 07-08-2022 Lymphocytes/100 WBC (Bld) 22.4 % 19-41 [facility] Work Phone: Blood monocytes/100 leukocyt eson 07-08-2022 Monocytes/100 WBC (Bld) 18.0 % 0-10 [facility] Work Phone: Blood platelet mean volumeon 07-08-2022 Platelet mean volume (Bld) [Entitic vol] 10.8 fL 6.2-12.0 [facility] Work Phone: Determination of erythrocyte mean corpuscular volume (MCV)on 07-08-2022 MCV (RBC) [Entitic vol] 84.7 fL 80-94 [facility] Work Phone: Hematocrit Auto (Bld) [Volum e fraction]on 07-08-2022 Hematocrit (Bld) [Volume fraction] 46.6 % 40-54 [facility] Work Phone: Laboratory - Chemistry and C hemistry - challengeon 07-08-2022 CO2 [Moles/Vol] 25.0 mmol/L 21.0-32.0 [facility] Work Phone: Natriuretic peptide B (Bld) [Mass/Vol] 13.7 pg/mL 0-100 [facility] Work Phone: Urea nitrogen/Creatinine [Mass ratio] 13.2 mg/mg 10-20 [facility] Work Phone: Laboratory - Hematology and Cell countson 07-08-2022 Erythrocyte distribution width (RBC) [Entitic vol] 41.7 fL 35.1-43.9 [facility] Work Phone: Erythrocyte distribution width (RBC) [Ratio] 13.5 % 11.6-14.6 [facility] Work Phone: Immature granulocytes/100 WBC (Bld) 0.300 % 0.0-0.9 [facility] Work Phone: Comment on above: IG% - Immature Granu locytes (promyelocytes, myelocytes and metamyelocytes) > 1% indicates that a LEFT SHIFT is Present. MCH (RBC) [Entitic mass] 27.3 pg 27.0-32.0 [facility] Work Phone: Nucleated RBC/100 WBC (Bld) [Ratio] 0 % 0-5 [facility] Work Phone: MCHC Auto (RBC) [Mass/Vol]on 07-08-2022 MCHC (RBC) [Mass/Vol] 32.2 g/dL 32-36 [facility] Work Phone: No Panel Informationon 07-08 Troponin I High Sensitivity 7 pg/mL 3.0-78.0 [facility] Work Phone: Comment on above: Please Note: [place] t Units and Gender Specific Reference Ranges. For more information see Policy Stat Procedure [place] High Sensitivity Troponin (TNIH) and attachments. Estimated Creatinine Clearance Calc 55.64 ml/min [facility] Work Phone: Estimated GFR (MDRD) Amer 73 mL/min >60 [facility] Work Phone: Comment on above: GFR Calc Estimated GFR (MDRD) Non-Af Amer 61 mL/min >60 [facility] Work Phone: Comment on above: Non- GFR Calc Platelets bldon 07-08-2022 Platelets (Bld) [#/Vol] 244 10*3/uL 150-450 [facility] Work Phone: Serum or plasma calcium zunilda urement (mass/volume)on 07-08-2022 Calcium [Mass/Vol] 9.0 mg/dL 8.5-10.1 [facility] Work Phone: Serum or plasma creatinine m easurement (mass/volume)on 07-08-2022 Creatinine [Mass/Vol] 1.29 mg/dL 0.70-1.30 [facility] Work Phone: Comment on above: The validity of the calculated GFR & GFRAA in patients over 70 years has not been determined. Clinical correlation is essential. Serum or plasma urea nitroge n measurement (mass/volume)on 07-08-2022 Urea nitrogen [Mass/Vol] 17 mg/dL 7-18 [facility] Work Phone: Thin prep Papanicolaou smear with manual screeningon 07-08-2022 Thin prep Papanicolaou smear with manual screening 7 5-15 [facility] Work Phone: Absolute lymphocyte counton 06-22-2022 Lymphocytes Auto (Unsp spec) [#/Vol] 2.49 10*3/uL 0.83-4.51 [facility] Work Phone: Basophil percentageon 2021 Basophils/100 WBC (Bld) 0.8 % 0-1 [facility] Work Phone: Chloride [Moles/Vol] 107 mmol/L 98-107 [facility] Work Phone: Eosinophils/100 WBC (Bld) 1.8 % 0-5 [facility] Work Phone: Glucose [Mass/Vol] 94 mg/dL 74-106 [facility] Work Phone: Neutrophils (Bld) [#/Vol] 4.3 10*3/uL 2.0-7.7 [facility] Work Phone: Neutrophils/100 WBC (Bld) 55.4 % 47-70 [facility] Work Phone: Potassium [Moles/Vol] 3.5 mmol/L 3.5-5.1 [facility] Work Phone: Sodium [Moles/Vol] 142 mmol/L 136-145 [facility] Work Phone: WBC (Bld) [#/Vol] 7.8 10*3/uL 4.4-11.0 [facility] Work Phone: Blood erythrocytes count (nu mber/volume)on 06-22-2022 RBC (Bld) [#/Vol] 4.76 10*6/uL 4.6-6.2 [facility] Work Phone: Blood hemoglobin measurement (mass/volume)on 06-22-2022 Hemoglobin (Bld) [Mass/Vol] 13.2 g/dL 13.0-16.5 [facility] Work Phone: Blood lymphocytes/100 leukoc yteson 06-22-2022 Lymphocytes/100 WBC (Bld) 32.1 % 19-41 [facility] Work Phone: Blood monocytes/100 leukocyt eson 06-22-2022 Monocytes/100 WBC (Bld) 9.5 % 0-10 [facility] Work Phone: Blood platelet mean volumeon 06-22-2022 Platelet mean volume (Bld) [Entitic vol] 11.0 fL 6.2-12.0 [facility] Work Phone: Determination of erythrocyte mean corpuscular volume (MCV)on 06-22-2022 MCV (RBC) [Entitic vol] 86.3 fL 80-94 [facility] Work Phone: Hematocrit Auto (Bld) [Volum e fraction]on 06-22-2022 Hematocrit (Bld) [Volume fraction] 41.1 % 40-54 [facility] Work Phone: Laboratory - Chemistry and C hemistry - challengeon 06-22-2022 CO2 [Moles/Vol] 27.0 mmol/L 21.0-32.0 [facility] Work Phone: Urea nitrogen/Creatinine [Mass ratio] 17.1 mg/mg 10-20 [facility] Work Phone: Laboratory - Hematology and Cell countson 06-22-2022 Erythrocyte distribution width (RBC) [Entitic vol] 40.0 fL 35.1-43.9 [facility] Work Phone: Erythrocyte distribution width (RBC) [Ratio] 12.8 % 11.6-14.6 [facility] Work Phone: Immature granulocytes/100 WBC (Bld) 0.400 % 0.0-0.9 [facility] Work Phone: Comment on above: IG% - Immature Granu locytes (promyelocytes, myelocytes and metamyelocytes) > 1% indicates that a LEFT SHIFT is Present. MCH (RBC) [Entitic mass] 27.7 pg 27.0-32.0 [facility] Work Phone: Nucleated RBC/100 WBC (Bld) [Ratio] 0 % 0-5 [facility] Work Phone: MCHC Auto (RBC) [Mass/Vol]on 06-22-2022 MCHC (RBC) [Mass/Vol] 32.1 g/dL 32-36 [facility] Work Phone: No Panel Informationon 06-22 Troponin I High Sensitivity 4 pg/mL 3.0-78.0 [facility] Work Phone: Comment on above: Please Note: [place] t Units and Gender Specific Reference Ranges. For more information see Policy Stat Procedure [place] High Sensitivity Troponin (TNIH) and attachments. Estimated Creatinine Clearance Calc 76.95 ml/min [facility] Work Phone: Estimated GFR (MDRD) Amer 99 mL/min >60 [facility] Work Phone: Comment on above: GFR Calc Estimated GFR (MDRD) Non-Af Amer 82 mL/min >60 [facility] Work Phone: Comment on above: Non- GFR Calc Platelets bldon 06-22-2022 Platelets (Bld) [#/Vol] 313 10*3/uL 150-450 [facility] Work Phone: Serum or plasma calcium zunilda urement (mass/volume)on 06-22-2022 Calcium [Mass/Vol] 8.8 mg/dL 8.5-10.1 [facility] Work Phone: Serum or plasma creatinine m easurement (mass/volume)on 06-22-2022 Creatinine [Mass/Vol] 1.00 mg/dL 0.70-1.30 [facility] Work Phone: Comment on above: The validity of the calculated GFR & GFRAA in patients over 70 years has not been determined. Clinical correlation is essential. Serum or plasma urea nitroge n measurement (mass/volume)on 06-22-2022 Urea nitrogen [Mass/Vol] 17 mg/dL 7-18 [facility] Work Phone: Thin prep Papanicolaou smear with manual screeningon 06-22-2022 Thin prep Papanicolaou smear with manual screening 8 5-15 [facility] Work Phone: Absolute lymphocyte counton 06-10-2022 Lymphocytes Auto (Unsp spec) [#/Vol] 2.51 10*3/uL 0.83-4.51 [facility] Work Phone: Basophil percentageon 2021 Basophils/100 WBC (Bld) 0.6 % 0-1 [facility] Work Phone: Chloride [Moles/Vol] 110 mmol/L 98-107 [facility] Work Phone: Eosinophils/100 WBC (Bld) 3.2 % 0-5 [facility] Work Phone: Glucose [Mass/Vol] 79 mg/dL 74-106 [facility] Work Phone: Neutrophils (Bld) [#/Vol] 5.0 10*3/uL 2.0-7.7 [facility] Work Phone: Neutrophils/100 WBC (Bld) 57.9 % 47-70 [facility] Work Phone: Potassium [Moles/Vol] 3.6 mmol/L 3.5-5.1 [facility] Work Phone: Sodium [Moles/Vol] 142 mmol/L 136-145 [facility] Work Phone: WBC (Bld) [#/Vol] 8.6 10*3/uL 4.4-11.0 [facility] Work Phone: Blood erythrocytes count (nu mber/volume)on 06-10-2022 RBC (Bld) [#/Vol] 4.69 10*6/uL 4.6-6.2 [facility] Work Phone: Blood hemoglobin measurement (mass/volume)on 06-10-2022 Hemoglobin (Bld) [Mass/Vol] 13.1 g/dL 13.0-16.5 [facility] Work Phone: Blood lymphocytes/100 leukoc yteson 06-10-2022 Lymphocytes/100 WBC (Bld) 29.3 % 19-41 [facility] Work Phone: Blood monocytes/100 leukocyt eson 06-10-2022 Monocytes/100 WBC (Bld) 8.8 % 0-10 [facility] Work Phone: Blood platelet mean volumeon 06-10-2022 Platelet mean volume (Bld) [Entitic vol] 10.2 fL 6.2-12.0 [facility] Work Phone: Determination of erythrocyte mean corpuscular volume (MCV)on 06-10-2022 MCV (RBC) [Entitic vol] 86.1 fL 80-94 [facility] Work Phone: Hematocrit Auto (Bld) [Volum e fraction]on 06-10-2022 Hematocrit (Bld) [Volume fraction] 40.4 % 40-54 [facility] Work Phone: Laboratory - Chemistry and C hemistry - challengeon 06-10-2022 CO2 [Moles/Vol] 27.0 mmol/L 21.0-32.0 [facility] Work Phone: Natriuretic peptide B (Bld) [Mass/Vol] 36.6 pg/mL 0-100 [facility] Work Phone: Urea nitrogen/Creatinine [Mass ratio] 13.1 mg/mg 10-20 [facility] Work Phone: Laboratory - Hematology and Cell countson 06-10-2022 Erythrocyte distribution width (RBC) [Entitic vol] 39.9 fL 35.1-43.9 [facility] Work Phone: Erythrocyte distribution width (RBC) [Ratio] 12.8 % 11.6-14.6 [facility] Work Phone: Immature granulocytes/100 WBC (Bld) 0.200 % 0.0-0.9 [facility] Work Phone: Comment on above: IG% - Immature Granu locytes (promyelocytes, myelocytes and metamyelocytes) > 1% indicates that a LEFT SHIFT is Present. MCH (RBC) [Entitic mass] 27.9 pg 27.0-32.0 [facility] Work Phone: Nucleated RBC/100 WBC (Bld) [Ratio] 0 % 0-5 [facility] Work Phone: MCHC Auto (RBC) [Mass/Vol]on 06-10-2022 MCHC (RBC) [Mass/Vol] 32.4 g/dL 32-36 [facility] Work Phone: No Panel Informationon 06-10 Estimated GFR (MDRD) Amer 99 mL/min >60 [facility] Work Phone: Comment on above: GFR Calc Estimated GFR (MDRD) Non-Af Amer 82 mL/min >60 [facility] Work Phone: Comment on above: Non- GFR Calc Platelets bldon 06-10-2022 Platelets (Bld) [#/Vol] 340 10*3/uL 150-450 [facility] Work Phone: Serum or plasma calcium zunilda urement (mass/volume)on 06-10-2022 Calcium [Mass/Vol] 8.9 mg/dL 8.5-10.1 [facility] Work Phone: Serum or plasma creatinine m easurement (mass/volume)on 06-10-2022 Creatinine [Mass/Vol] 1.00 mg/dL 0.70-1.30 [facility] Work Phone: Comment on above: The validity of the calculated GFR & GFRAA in patients over 70 years has not been determined. Clinical correlation is essential. Serum or plasma urea nitroge n measurement (mass/volume)on 06-10-2022 Urea nitrogen [Mass/Vol] 13 mg/dL 7-18 [facility] Work Phone: Thin prep Papanicolaou smear with manual screeningon 06-10-2022 Thin prep Papanicolaou smear with manual screening 5 5-15 [facility] Work Phone: Absolute lymphocyte counton 06-03-2022 Lymphocytes Auto (Unsp spec) [#/Vol] 2.27 10*3/uL 0.83-4.51 [facility] Work Phone: Basophil percentageon 2021 Basophils/100 WBC (Bld) 0.6 % 0-1 [facility] Work Phone: Bilirubin [Mass/Vol] 0.20 mg/dL 0.20-1.00 [facility] Work Phone: Comment on above: For patients on eltr ombopag therapy, use of Dimension [place] TBIL is not recommended. Chloride [Moles/Vol] 111 mmol/L 98-107 [facility] Work Phone: Eosinophils/100 WBC (Bld) 4.4 % 0-5 [facility] Work Phone: Glucose [Mass/Vol] 112 mg/dL 74-106 [facility] Work Phone: Comment on above: Fasting Glucose resu lt from 100 to 125 mg/dL suggests IMPAIRED HOMEOSTASIS per A.D.A. criteria. Neutrophils (Bld) [#/Vol] 4.3 10*3/uL 2.0-7.7 [facility] Work Phone: Neutrophils/100 WBC (Bld) 55.1 % 47-70 [facility] Work Phone: Potassium [Moles/Vol] 3.5 mmol/L 3.5-5.1 [facility] Work Phone: Protein [Mass/Vol] 7.3 g/dL 6.4-8.2 [facility] Work Phone: Sodium [Moles/Vol] 142 mmol/L 136-145 [facility] Work Phone: WBC (Bld) [#/Vol] 7.7 10*3/uL 4.4-11.0 [facility] Work Phone: Blood erythrocytes count (nu mber/volume)on 06-03-2022 RBC (Bld) [#/Vol] 4.88 10*6/uL 4.6-6.2 [facility] Work Phone: Blood hemoglobin measurement (mass/volume)on 06-03-2022 Hemoglobin (Bld) [Mass/Vol] 13.5 g/dL 13.0-16.5 [facility] Work Phone: Blood lymphocytes/100 leukoc yteson 06-03-2022 Lymphocytes/100 WBC (Bld) 29.4 % 19-41 [facility] Work Phone: Blood monocytes/100 leukocyt eson 06-03-2022 Monocytes/100 WBC (Bld) 10.2 % 0-10 [facility] Work Phone: Blood platelet mean volumeon 06-03-2022 Platelet mean volume (Bld) [Entitic vol] 10.6 fL 6.2-12.0 [facility] Work Phone: Determination of erythrocyte mean corpuscular volume (MCV)on 06-03-2022 MCV (RBC) [Entitic vol] 87.3 fL 80-94 [facility] Work Phone: Direct bilirubinon Bilirubin.direct [Mass/Vol] 0.08 mg/dL 0.00-0.30 [facility] Work Phone: Glucose Glucometer (BldC) [M ass/Vol]on 06-03-2022 Glucose [Mass/Vol] 116 mg/dL 74-106 [facility] Work Phone: Comment on above: MANAGEMENT OF PATIEN T CARE PER NURSING PROTOCOL Hematocrit Auto (Bld) [Volum e fraction]on 06-03-2022 Hematocrit (Bld) [Volume fraction] 42.6 % 40-54 [facility] Work Phone: INR in Blood by Coagulation assayon 06-03-2022 INR Coag (Bld) [Relative time] 1.0 {INR} [facility] Work Phone: Laboratory - Chemistry and C hemistry - challengeon 06-03-2022 ALP [Catalytic activity/Vol] 60 U/L 45-117 [facility] Work Phone: ALT [Catalytic activity/Vol] 22 U/L 16-61 [facility] Work Phone: CO2 [Moles/Vol] 25.0 mmol/L 21.0-32.0 [facility] Work Phone: Globulin (S) [Mass/Vol] 4.2 g/dL 2.2-4.2 [facility] Work Phone: Magnesium [Mass/Vol] 2.6 mg/dL 1.6-2.6 [facility] Work Phone: Urea nitrogen/Creatinine [Mass ratio] 12.3 mg/mg 10-20 [facility] Work Phone: Laboratory - Coagulationon 0 06-03-2022 PT Coag (PPP) [Time] 12.5 s 11.7-14.9 [facility] Work Phone: Laboratory - Hematology and Cell countson 06-03-2022 Erythrocyte distribution width (RBC) [Entitic vol] 41.3 fL 35.1-43.9 [facility] Work Phone: Erythrocyte distribution width (RBC) [Ratio] 13.0 % 11.6-14.6 [facility] Work Phone: Immature granulocytes/100 WBC (Bld) 0.300 % 0.0-0.9 [facility] Work Phone: Comment on above: IG% - Immature Granu locytes (promyelocytes, myelocytes and metamyelocytes) > 1% indicates that a LEFT SHIFT is Present. MCH (RBC) [Entitic mass] 27.7 pg 27.0-32.0 [facility] Work Phone: Nucleated RBC/100 WBC (Bld) [Ratio] 0 % 0-5 [facility] Work Phone: MCHC Auto (RBC) [Mass/Vol]on 06-03-2022 MCHC (RBC) [Mass/Vol] 31.7 g/dL 32-36 [facility] Work Phone: No Panel Informationon 06-03 Troponin I High Sensitivity 7 pg/mL 3.0-78.0 [facility] Work Phone: Comment on above: Please Note: [place] t Units and Gender Specific Reference Ranges. For more information see Policy Stat Procedure [place] High Sensitivity Troponin (TNIH) and attachments. D-Dimer Quantitative (PE/DVT) 0.94 FEU/ug/m 0.27-0.49 [facility] Work Phone: Comment on above: D-Dimer ELEVATED (>0 .49): Additional studies and clinicalassessments are indicated to conclude diagnosis of:Deep Vein Thrombosis (DVT) or Pulmonary Embolism (PE)CRITICAL VALUE VERIFIED. CALLED TO YPSNNM39/02/22 1625 Dianne Hamm.RESULTS READ BACK BY SAME . Estimated Creatinine Clearance Calc 79.33 ml/min [facility] Work Phone: Estimated GFR (MDRD) Amer 101 mL/min >60 [facility] Work Phone: Comment on above: GFR Calc Estimated GFR (MDRD) Non-Af Amer 84 mL/min >60 [facility] Work Phone: Comment on above: Non- GFR Calc Platelets bldon 06-03-2022 Platelets (Bld) [#/Vol] 271 10*3/uL 150-450 [facility] Work Phone: Serum or plasma albumin zunilda urement (mass/volume)on 06-03-2022 Albumin [Mass/Vol] 3.1 g/dL 3.2-5.0 [facility] Work Phone: Serum or plasma calcium zunilda urement (mass/volume)on 06-03-2022 Calcium [Mass/Vol] 8.5 mg/dL 8.5-10.1 [facility] Work Phone: Serum or plasma creatinine m easurement (mass/volume)on 06-03-2022 Creatinine [Mass/Vol] 0.97 mg/dL 0.70-1.30 [facility] Work Phone: Comment on above: The validity of the calculated GFR & GFRAA in patients over 70 years has not been determined. Clinical correlation is essential. Serum or plasma urea nitroge n measurement (mass/volume)on 06-03-2022 Urea nitrogen [Mass/Vol] 12 mg/dL 7-18 [facility] Work Phone: Thin prep Papanicolaou smear with manual screeningon 06-03-2022 Thin prep Papanicolaou smear with manual screening 16 U/L 15-37 [facility] Work Phone: Thin prep Papanicolaou smear with manual screening 6 5-15 [facility] Work Phone: 2018 Novel Coronavirus (COVI D-19), BRISEIDA ([id number])Ordered By: Small Animal Veterinarian on 05-31-20222018 Novel Coronavirus (COVID-19), BRISEIDA ([id number]) Not detected Normal [facility]; [facility] Work Phone: Comment on above: This nucleic acid am plification test was developed and its performancecharacteristics determined by [employer]. Nucleic acidamplification tests include RT-PCR and TMA. This test has not beenFDA cleared or approved. This test has been authorized by FDA underan Emergency Use Authorization (EUA). This test is only authorizedfor the duration of time the declaration that circumstances existjustifying the authorization of the emergency use of in vitrodiagnostic tests for detection of SARS-CoV-2 virus and/or diagnosisof COVID-19 infection under section 564(b)(1) of the Act, 21 U.S.C.360bbb-3(b) (1), unless the authorization is terminated or revokedsooner.When diagnostic testing is negative, the possibility of a falsenegative result should be considered in the context of a patient'srecent exposures and the presence of clinical signs and symptomsconsistent with COVID-19. An individual without symptoms of COVID-19and who is not shedding SARS-CoV-2 virus would expect to have anegative (not detected) result in this assay. PATIENT NOT FASTINGP ERFORMED BY: [facility][id number] [facility] [id number] INHOUSE COVID 19 (ONLY) CARIDAD Joy ([id number])Ordered By: Yvette Hernandez on 05-31-2022 SARS-CoV-2 (COVID-19) RNA BRISEIDA+probe Ql (Unsp spec) Negative Normal [facility]; [facility] Work Phone: Absolute lymphocyte counton 05-27-2022 Lymphocytes Auto (Unsp spec) [#/Vol] 2.52 10*3/uL 0.83-4.51 [facility] Work Phone: Basophil percentageon 2021 Basophils/100 WBC (Bld) 0.6 % 0-1 [facility] Work Phone: Chloride [Moles/Vol] 109 mmol/L 98-107 [facility] Work Phone: Eosinophils/100 WBC (Bld) 1.1 % 0-5 [facility] Work Phone: Glucose [Mass/Vol] 92 mg/dL 74-106 [facility] Work Phone: Neutrophils (Bld) [#/Vol] 4.9 10*3/uL 2.0-7.7 [facility] Work Phone: Neutrophils/100 WBC (Bld) 58.4 % 47-70 [facility] Work Phone: Potassium [Moles/Vol] 3.5 mmol/L 3.5-5.1 [facility] Work Phone: Sodium [Moles/Vol] 140 mmol/L 136-145 [facility] Work Phone: WBC (Bld) [#/Vol] 8.3 10*3/uL 4.4-11.0 [facility] Work Phone: Blood erythrocytes count (nu mber/volume)on 05-27-2022 RBC (Bld) [#/Vol] 5.14 10*6/uL 4.6-6.2 [facility] Work Phone: Blood hemoglobin measurement (mass/volume)on 05-27-2022 Hemoglobin (Bld) [Mass/Vol] 14.2 g/dL 13.0-16.5 [facility] Work Phone: Blood lymphocytes/100 leukoc yteson 05-27-2022 Lymphocytes/100 WBC (Bld) 30.3 % 19-41 [facility] Work Phone: Blood monocytes/100 leukocyt eson 05-27-2022 Monocytes/100 WBC (Bld) 9.4 % 0-10 [facility] Work Phone: Blood platelet mean volumeon 05-27-2022 Platelet mean volume (Bld) [Entitic vol] 10.6 fL 6.2-12.0 [facility] Work Phone: Determination of erythrocyte mean corpuscular volume (MCV)on 05-27-2022 MCV (RBC) [Entitic vol] 86.0 fL 80-94 [facility] Work Phone: Hematocrit Auto (Bld) [Volum e fraction]on 05-27-2022 Hematocrit (Bld) [Volume fraction] 44.2 % 40-54 [facility] Work Phone: Laboratory - Chemistry and C hemistry - challengeon 05-27-2022 CO2 [Moles/Vol] 23.0 mmol/L 21.0-32.0 [facility] Work Phone: Urea nitrogen/Creatinine [Mass ratio] 12.0 mg/mg 10-20 [facility] Work Phone: Laboratory - Hematology and Cell countson 05-27-2022 Erythrocyte distribution width (RBC) [Entitic vol] 39.9 fL 35.1-43.9 [facility] Work Phone: Erythrocyte distribution width (RBC) [Ratio] 12.9 % 11.6-14.6 [facility] Work Phone: Immature granulocytes/100 WBC (Bld) 0.200 % 0.0-0.9 [facility] Work Phone: Comment on above: IG% - Immature Granu locytes (promyelocytes, myelocytes and metamyelocytes) > 1% indicates that a LEFT SHIFT is Present. MCH (RBC) [Entitic mass] 27.6 pg 27.0-32.0 [facility] Work Phone: Nucleated RBC/100 WBC (Bld) [Ratio] 0 % 0-5 [facility] Work Phone: MCHC Auto (RBC) [Mass/Vol]on 05-27-2022 MCHC (RBC) [Mass/Vol] 32.1 g/dL 32-36 [facility] Work Phone: No Panel Informationon 05-27 Estimated Creatinine Clearance Calc 71.25 ml/min [facility] Work Phone: Estimated GFR (MDRD) Amer 90 mL/min >60 [facility] Work Phone: Comment on above: GFR Calc Estimated GFR (MDRD) Non-Af Amer 74 mL/min >60 [facility] Work Phone: Comment on above: Non- GFR Calc Troponin I High Sensitivity 7 pg/mL 3.0-78.0 [facility] Work Phone: Comment on above: Please Note: New Leigh t Units and Gender Specific Reference Ranges. For more information see Policy Stat Procedure [place] High Sensitivity Troponin (TNIH) and attachments. Platelets bldon 05-27-2022 Platelets (Bld) [#/Vol] 284 10*3/uL 150-450 [facility] Work Phone: Serum or plasma calcium zunilda urement (mass/volume)on 05-27-2022 Calcium [Mass/Vol] 8.6 mg/dL 8.5-10.1 [facility] Work Phone: Serum or plasma creatinine m easurement (mass/volume)on 05-27-2022 Creatinine [Mass/Vol] 1.08 mg/dL 0.70-1.30 [facility] Work Phone: Comment on above: The validity of the calculated GFR & GFRAA in patients over 70 years has not been determined. Clinical correlation is essential. Serum or plasma urea nitroge n measurement (mass/volume)on 05-27-2022 Urea nitrogen [Mass/Vol] 13 mg/dL 7-18 [facility] Work Phone: Thin prep Papanicolaou smear with manual screeningon 05-27-2022 Thin prep Papanicolaou smear with manual screening 8 5-15 [facility] Work Phone: Absolute lymphocyte counton 05-05-2022 Lymphocytes Auto (Unsp spec) [#/Vol] 2.02 10*3/uL 0.83-4.51 [facility] Work Phone: Basophil percentageon 2021 Basophils/100 WBC (Bld) 0.9 % 0-1 [facility] Work Phone: Bilirubin [Mass/Vol] 0.30 mg/dL 0.20-1.00 [facility] Work Phone: Comment on above: For patients on eltr ombopag therapy, use of Dimension [place] TBIL is not recommended. Chloride [Moles/Vol] 110 mmol/L 98-107 [facility] Work Phone: Eosinophils/100 WBC (Bld) 1.8 % 0-5 [facility] Work Phone: Glucose [Mass/Vol] 116 mg/dL 74-106 [facility] Work Phone: Comment on above: Fasting Glucose resu lt from 100 to 125 mg/dL suggests IMPAIRED HOMEOSTASIS per A.D.A. criteria. Neutrophils (Bld) [#/Vol] 5.3 10*3/uL 2.0-7.7 [facility] Work Phone: Neutrophils/100 WBC (Bld) 64.5 % 47-70 [facility] Work Phone: Potassium [Moles/Vol] 3.9 mmol/L 3.5-5.1 [facility] Work Phone: Protein [Mass/Vol] 7.6 g/dL 6.4-8.2 [facility] Work Phone: Sodium [Moles/Vol] 141 mmol/L 136-145 [facility] Work Phone: WBC (Bld) [#/Vol] 8.2 10*3/uL 4.4-11.0 [facility] Work Phone: Blood erythrocytes count (nu mber/volume)on 05-05-2022 RBC (Bld) [#/Vol] 5.23 10*6/uL 4.6-6.2 [facility] Work Phone: Blood hemoglobin measurement (mass/volume)on 05-05-2022 Hemoglobin (Bld) [Mass/Vol] 14.9 g/dL 13.0-16.5 [facility] Work Phone: Blood lymphocytes/100 leukoc yteson 05-05-2022 Lymphocytes/100 WBC (Bld) 24.7 % 19-41 [facility] Work Phone: Blood monocytes/100 leukocyt eson 05-05-2022 Monocytes/100 WBC (Bld) 7.7 % 0-10 [facility] Work Phone: Blood platelet mean volumeon 05-05-2022 Platelet mean volume (Bld) [Entitic vol] 10.4 fL 6.2-12.0 [facility] Work Phone: Determination of erythrocyte mean corpuscular volume (MCV)on 05-05-2022 MCV (RBC) [Entitic vol] 87.0 fL 80-94 [facility] Work Phone: Direct bilirubinon Bilirubin.direct [Mass/Vol] 0.08 mg/dL 0.00-0.30 [facility] Work Phone: Hematocrit Auto (Bld) [Volum e fraction]on 05-05-2022 Hematocrit (Bld) [Volume fraction] 45.5 % 40-54 [facility] Work Phone: Laboratory - Chemistry and C hemistry - challengeon 05-05-2022 ALP [Catalytic activity/Vol] 61 U/L 45-117 [facility] Work Phone: ALT [Catalytic activity/Vol] 25 U/L 16-61 [facility] Work Phone: CO2 [Moles/Vol] 27.0 mmol/L 21.0-32.0 [facility] Work Phone: Globulin (S) [Mass/Vol] 4.2 g/dL 2.2-4.2 [facility] Work Phone: Lipase [Catalytic activity/Vol] 159 U/L 73-393 [facility] Work Phone: Urea nitrogen/Creatinine [Mass ratio] 14.5 mg/mg 10-20 [facility] Work Phone: Laboratory - Hematology and Cell countson 05-05-2022 Erythrocyte distribution width (RBC) [Entitic vol] 41.3 fL 35.1-43.9 [facility] Work Phone: Erythrocyte distribution width (RBC) [Ratio] 13.1 % 11.6-14.6 [facility] Work Phone: Immature granulocytes/100 WBC (Bld) 0.400 % 0.0-0.9 [facility] Work Phone: Comment on above: IG% - Immature Granu locytes (promyelocytes, myelocytes and metamyelocytes) > 1% indicates that a LEFT SHIFT is Present. MCH (RBC) [Entitic mass] 28.5 pg 27.0-32.0 [facility] Work Phone: Nucleated RBC/100 WBC (Bld) [Ratio] 0 % 0-5 [facility] Work Phone: MCHC Auto (RBC) [Mass/Vol]on 05-05-2022 MCHC (RBC) [Mass/Vol] 32.7 g/dL 32-36 [facility] Work Phone: No Panel Informationon 05-05 Estimated Creatinine Clearance Calc 62.06 ml/min [facility] Work Phone: Estimated GFR (MDRD) Amer 77 mL/min >60 [facility] Work Phone: Comment on above: GFR Calc Estimated GFR (MDRD) Non-Af Amer 63 mL/min >60 [facility] Work Phone: Comment on above: Non- GFR Calc Platelets bldon 05-05-2022 Platelets (Bld) [#/Vol] 289 10*3/uL 150-450 [facility] Work Phone: Serum or plasma albumin zunilda urement (mass/volume)on 05-05-2022 Albumin [Mass/Vol] 3.4 g/dL 3.2-5.0 [facility] Work Phone: Serum or plasma calcium zunilda urement (mass/volume)on 05-05-2022 Calcium [Mass/Vol] 8.8 mg/dL 8.5-10.1 [facility] Work Phone: Serum or plasma creatinine m easurement (mass/volume)on 05-05-2022 Creatinine [Mass/Vol] 1.24 mg/dL 0.70-1.30 [facility] Work Phone: Comment on above: The validity of the calculated GFR & GFRAA in patients over 70 years has not been determined. Clinical correlation is essential. Serum or plasma urea nitroge n measurement (mass/volume)on 05-05-2022 Urea nitrogen [Mass/Vol] 18 mg/dL 7-18 [facility] Work Phone: Thin prep Papanicolaou smear with manual screeningon 05-05-2022 Thin prep Papanicolaou smear with manual screening 17 U/L 15-37 [facility] Work Phone: Thin prep Papanicolaou smear with manual screening 4 5-15 [facility] Work Phone: CBC W Auto Differential pane l (Bld)on 03-08-2022 Abs Immature Gran 0.03 k/uL <0.10 k/uL [facility] Basophils (Bld) [#/Vol] 0.04 10*3/uL <0.11 k/uL [facility] Basophils/100 WBC (Bld) 0.5 % [facility] Differential cell count method Nom (Bld) Auto [facility] Eosinophils (Bld) [#/Vol] 0.08 10*3/uL <0.46 k/uL [facility] Eosinophils/100 WBC (Bld) 0.9 % [facility] Erythrocyte distribution width (RBC) [Ratio] 13.0 % 11.5 - 15.0 % [facility] Hematocrit (Bld) [Volume fraction] 46.6 % 39.0 - 51.0 % [facility] Hemoglobin (Bld) [Mass/Vol] 15.0 g/dL 13.0 - 17.0 g/dL [facility] Immature Gran % 0.3 % [facility] Lymphocytes (Bld) [#/Vol] 2.32 10*3/uL 1.00 - 4.00 k/uL [facility] Lymphocytes/100 WBC (Bld) 26.5 % [facility] MCH (RBC) [Entitic mass] 27.7 pg 26.0 - 34.0 pg [facility] MCHC (RBC) [Mass/Vol] 32.2 g/dL 30.5 - 36.0 g/dL [facility] MCV (RBC) [Entitic vol] 86.0 fL 80.0 - 100.0 fL [facility] Monocytes (Bld) [#/Vol] 0.68 10*3/uL <0.87 k/uL [facility] Monocytes/100 WBC (Bld) 7.8 % [facility] Neutrophils (Bld) [#/Vol] 5.62 10*3/uL 1.45 - 7.50 k/uL [facility] Neutrophils/100 WBC (Bld) 64.0 % [facility] Nucleated RBC (Bld) [#/Vol] 10*3/uL <0.01 k/uL [facility] Nucleated RBC/100 WBC (Bld) [Ratio] 0.0 /100 WBC [facility] Platelet mean volume (Bld) [Entitic vol] 10.6 fL 9.0 - 12.7 fL [facility] Platelets (Bld) [#/Vol] 300 10*3/uL 150 - 400 k/uL [facility] RBC (Bld) [#/Vol] 5.42 10*6/uL 4.20 - 6.00 m/uL [facility] WBC (Bld) [#/Vol] 8.77 10*3/uL 3.70 - 11.00 k/uL [facility] Comprehensive metabolic 2000 panelon 03-08-2022 Albumin [Mass/Vol] 4.1 g/dL 3.9 - 4.9 g/dL [facility] ALP [Catalytic activity/Vol] 70 U/L 38 - 113 U/L [facility] ALT [Catalytic activity/Vol] 18 U/L 10 - 54 U/L [facility] Anion gap [Moles/Vol] 11 mmol/L 9 - 18 mmol/L [facility] AST [Catalytic activity/Vol] 19 U/L 14 - 40 U/L [facility] Bilirubin [Mass/Vol] 0.5 mg/dL 0.2 - 1 .3 mg/dL [facility] Calcium [Mass/Vol] 9.1 mg/dL 8.5 - 10. 2 mg/dL [facility] Chloride [Moles/Vol] 104 mmol/L 97 - 10 5 mmol/L [facility] CO2 [Moles/Vol] 24 mmol/L 22 - 30 mmol/L [facility] Creatinine [Mass/Vol] 1.13 mg/dL 0.73 - 1.22 mg/dL [facility] Estimated Glomerular Filtration Rate 75 mL/min/1.73m >=60 mL/min/1.7 3m [facility] Glucose [Mass/Vol] 97 mg/dL 74 - 99 mg/dL [facility] Potassium [Moles/Vol] 3.5 mmol/L Low 3.7 - 5.1 mmol/L [facility] Protein [Mass/Vol] 7.3 g/dL 6.3 - 8.0 g/dL [facility] Sodium [Moles/Vol] 139 mmol/L 136 - 144 mmol/L [facility] Urea nitrogen [Mass/Vol] 9 mg/dL 9 - 24 mg/dL [facility] LIPID PANEL BASICon 03-08-20 22 Cholesterol [Mass/Vol] 182 mg/dL <200 mg/dL [facility] Cholesterol in HDL [Mass/Vol] 41 mg/dL >39 mg/dL [facility] Cholesterol in LDL [Mass/Vol] 122 mg/dL High <100 mg/dL [facility] Cholesterol in LDL/Cholesterol in HDL [Mass ratio] 2.98 {ratio} High <2.54 [facility] Cholesterol in VLDL [Mass/Vol] 19 mg/dL <30 mg/dL [facility] Cholesterol non HDL [Mass/Vol] 141 mg/dL High <130 mg/dL [facility] Cholesterol.total/Cho lesterol in HDL [Mass ratio] 4.44 {ratio} <5.10 [facility] Fasting Time 0 hrs [facility] Triglyceride [Mass/Vol] 94 mg/dL <150 mg/dL [facility] C-Reactive Protein ([id number])Or dered By: Small Animal Veterinarian on 01-01-2021 CRP [Mass/Vol] 4 mg/L Normal 0-10 [facility]; [facility] Work Phone: Comment on above: PATIENT NOT FASTINGP ERFORMED BY: CB [facility] [id number] [facility] [id number] D-Dimer ([id number])Ordered By: Arabella ystem Retail Property Manager on 01-01-2021 Fibrin D-dimer FEU (PPP) [Mass/Vol] 0.39 {mg/L_FEU} Normal 0.00-0.49 [facility]; [facility] Work Phone: Comment on above: According to the ass ay cocoa bean cleaner's published package insert, anormal (<0.50 mg/L FEU) D-dimer result in conjunction with a non-highclinical probability assessment, excludes deep vein thrombosis (DVT)and pulmonary embolism (PE) with high sensitivity. .D-dimer values increase with age and this can make VTE exclusion ofan older population difficult. To address this, the [employer] [employer], based on best available evidence and recent guidelines,recommends that clinicians use age-adjusted D-dimer thresholds inpatients greater than 50 years of age with: a) a low probability ofPE who do not meet all Pulmonary Embolism Rule Out Criteria, orb) in those with intermediate probability of PE. The formula for anage-adjusted D-dimer cut-off is age/100. For example, a 60 year oldpatient would have an age-adjusted cut-off of 0.60 mg/L FEU and an80 year old 0.80 mg/L FEU. PATIENT NOT FASTINGP ERFORMED BY: CB [facility] [id number] [facility] CommerceAt[facility] [id number] CBC, PLATELETS & AUT DIFF ([id number])Ordered By: Small Animal Veterinarian on 06-09-2020 Basophils (Bld) [#/Vol] 0.1 {x10E3/uL} Normal 0.0-0.2 [facility] Work Phone: Comment on above: PATIENT NOT FASTINGP ERFORMED BY: CB [facility] [id number] [address] [employer] CommerceErlanger [facility]in [place] [id number] Basophils (Bld) [#/Vol] 0.1 10*3/uL Normal 0.0-0.2 [facility]; [facility] Work Phone: Comment on above: PATIENT NOT FASTINGP ERFORMED BY: CB [facility] [id number] [address] [employer] CommerceErlanger [facility] [place] [id number] Basophils/100 WBC (Bld) 1 % Normal [facility] Work Phone: Comment on above: PATIENT NOT FASTINGP ERFORMED BY: CB [facility] [id number] [place] [employer] [employer] CommerceAt[facility] [id number] Eosinophils (Bld) [#/Vol] 0.1 {x10E3/uL} Normal 0.0-0.4 [facility] Work Phone: Comment on above: PATIENT NOT FASTINGP ERFORMED BY: CB [facility] [id number] [address] [facility] [id number] Eosinophils (Bld) [#/Vol] 0.1 10*3/uL Normal 0.0-0.4 [facility]; [facility] Work Phone: Comment on above: PATIENT NOT FASTINGP ERFORMED BY: KIMI [employer] [id number] [address] [place] [id number] Eosinophils/100 WBC (Bld) 1 % Normal [facility] Work Phone: Comment on above: PATIENT NOT FASTINGP ERFORMED BY: [facility] [id number] [place] [facility] [id number] Erythrocyte distribution width (RBC) [Ratio] 12.1 % Normal 11.6-15.4 [facility] Work Phone: Comment on above: PATIENT NOT FASTINGP ERFORMED BY: KIMI [facility] [id number] [place] [facility] [id number] Hematocrit (Bld) [Volume fraction] 46.0 % Normal 37.5-51.0 [facility] Work Phone: Comment on above: PATIENT NOT FASTINGP ERFORMED BY: [facility] [id number] [place] [facility] [id number] Hemoglobin (Bld) [Mass/Vol] 15.2 g/dL Normal 13.0-17.7 [facility] Work Phone: Comment on above: PATIENT NOT FASTINGP ERFORMED BY: [facility] [id number] [address] [facility] [place] [id number] Immature granulocytes (Bld) [#/Vol] 0.0 {x10E3/uL} Normal 0.0-0.1 [facility] Work Phone: Comment on above: PATIENT NOT FASTINGP ERFORMED BY: [facility] [id number] [address] [facility] [place] [id number] Immature granulocytes (Bld) [#/Vol] 0.0 10*3/uL Normal 0.0-0.1 [facility]; [facility] Work Phone: Comment on above: PATIENT NOT FASTINGP ERFORMED BY: KIMI [facility] [id number] [address] RoadDublin [place] [id number] Immature granulocytes/100 WBC (Bld) 0 % Normal [facility] Work Phone: Comment on above: PATIENT NOT FASTINGP ERFORMED BY: KIMI Millerlin6[address] RoadDublin [place] [id number] Lymphocytes (Bld) [#/Vol] 2.2 {x10E3/uL} Normal 0.7-3.1 [facility] Work Phone: Comment on above: PATIENT NOT FASTINGP ERFORMED BY: [facility] [id number] [address] RoadDublin [place] [id number] Lymphocytes (Bld) [#/Vol] 2.2 10*3/uL Normal 0.7-3.1 [facility]; [facility] Work Phone: Comment on above: PATIENT NOT FASTINGP ERFORMED BY: KIMI [facility] [id number] [address] [place] [id number] Lymphocytes/100 WBC (Bld) 28 % Normal [facility] Work Phone: Comment on above: PATIENT NOT FASTINGP ERFORMED BY: [facility] [id number] [address] [facility] [place] [id number] MCH (RBC) [Entitic mass] 28.6 pg Normal 26.6-33.0 [facility] Work Phone: Comment on above: PATIENT NOT FASTINGP ERFORMED BY: [facility][id number] [address] [facility] [place] [id number] MCHC (RBC) [Mass/Vol] 33.0 g/dL Normal 31.5-35.7 [facility] Work Phone: Comment on above: PATIENT NOT FASTINGP ERFORMED BY: [facility] [id number] [address] [facility] [place] [id number] MCV (RBC) [Entitic vol] 87 fL Normal 79-97 [facility] Work Phone: Comment on above: PATIENT NOT FASTINGP ERFORMED BY: [facility] [id number] [address]Dublin [place] [id number] Monocytes (Bld) [#/Vol] 0.6 {x10E3/uL} Normal 0.1-0.9 [facility] Work Phone: Comment on above: PATIENT NOT FASTINGP ERFORMED BY: KIMI LabCoesperanza [id number] [address]Dublin [place] [id number] Monocytes (Bld) [#/Vol] 0.6 10*3/uL Normal 0.1-0.9 [facility]; [facility] Work Phone: Comment on above: PATIENT NOT FASTINGP ERFORMED BY: KIMI [facility] Beoprn9956 [address] [place] [id number] Monocytes/100 WBC (Bld) 8 % Normal [facility] Work Phone: Comment on above: PATIENT NOT FASTINGP ERFORMED BY: KIMI Manuelesperanza MillerUmheto7851 [address]Dublin [place] [id number] Neutrophils (Bld) [#/Vol] 5.1 {x10E3/uL} Normal 1.4-7.0 [facility] Work Phone: Comment on above: PATIENT NOT FASTINGP ERFORMED BY: KIMI LabCoesperanza MillerTmjluz3289 [address] RoadDublin [place] [id number] Neutrophils (Bld) [#/Vol] 5.1 10*3/uL Normal 1.4-7.0 [facility]; [facility] Work Phone: Comment on above: PATIENT NOT FASTINGP ERFORMED BY: CB [facility] Dhowlb7484 [address] [place] [id number] Neutrophils/100 WBC (Bld) 62 % Normal [facility] Work Phone: Comment on above: PATIENT NOT FASTINGP ERFORMED BY: CB [facility] Dhrnpt7220 [address] [place] [id number] Platelets (Bld) [#/Vol] 273 {x10E3/uL} Normal 150-450 [facility] Work Phone: Comment on above: PATIENT NOT FASTINGP ERFORMED BY: CB [facility] Xxkolz6948 [address]Dublin [place] [id number] Platelets (Bld) [#/Vol] 273 10*3/uL Normal 150-450 [facility]; [facility] Work Phone: Comment on above: PATIENT NOT FASTINGP ERFORMED BY: CB [facility] Hughxb4884 [address]Dublin [place] [id number] RBC (Bld) [#/Vol] 5.32 {x10E6/uL} Normal 4.14-5.80 [facility] Internal Medicine Work Phone: Comment on above: PATIENT NOT FASTINGP ERFORMED BY: CB [facility] Jusvsc2017 [address] [place] [id number] RBC (Bld) [#/Vol] 5.32 10*6/uL Normal 4.14-5.80 [facility]; [facility] Work Phone: Comment on above: PATIENT NOT FASTINGP ERFORMED BY: CB [facility] Wtmjwx0509 [address] [place] [id number] WBC (Bld) [#/Vol] 8.1 {x10E3/uL} Normal 3.4-10.8 [facility] Internal Medicine Work Phone: Comment on above: PATIENT NOT FASTINGP ERFORMED BY: CB [facility] Itjken4118 [address] [place] [id number] WBC (Bld) [#/Vol] 8.1 10*3/uL Normal 3.4-10.[address] [facility] Internal Medicine; [facility] Work Phone: Comment on above: PATIENT NOT FASTINGP ERFORMED BY: CB [facility] Kuvdhl8964 [address] [place] [id number] METABOLIC PANEL, COMPREHENSI VE ([id number])Ordered By: Small Animal Veterinarian on 06-09-2020 Albumin [Mass/Vol] 4.1 g/dL Normal 3.8-4.[address] [facility] Internal Medicine Work Phone: Comment on above: PATIENT NOT FASTINGP ERFORMED BY: CB [facility] Htuite0431 [address] [place] [id number] Albumin/Globulin [Mass ratio] 1.5 {ratio} Normal 1.2-2.2 [facility] Work Phone: Comment on above: PATIENT NOT FASTINGP ERFORMED BY: CB [facility] Qwexlv3525 [address] [place] [id number] ALP [Catalytic activity/Vol] 61 [iU]/L Normal 39-117 [facility] Work Phone: Comment on above: PATIENT NOT FASTINGP ERFORMED BY: CB [facility] Ridtdp8865 [address] [place] [id number] ALP [Catalytic activity/Vol] 61 U/L Normal 39-117 [facility]; [facility] Work Phone: Comment on above: PATIENT NOT FASTINGP ERFORMED BY: CB [facility] Nlvdmw7775 [address] [place] [id number] ALT [Catalytic activity/Vol] 16 [iU]/L Normal 0-44 [facility] Work Phone: Comment on above: PATIENT NOT FASTINGP ERFORMED BY: CB [facility] Huyxpa9226 [address]Dublin [place] [id number] ALT [Catalytic activity/Vol] 16 U/L Normal 0-44 [facility]; [facility] Work Phone: Comment on above: PATIENT NOT FASTINGP ERFORMED BY: [facility] Twbchb4077 [address]Dublin [place] [id number] AST [Catalytic activity/Vol] 18 [iU]/L Normal 0-40 [facility] Work Phone: Comment on above: PATIENT NOT FASTINGP ERFORMED BY: CB [facility] Whpdeh1082 [address] [place] [id number] AST [Catalytic activity/Vol] 18 U/L Normal 0-40 [facility]; [facility] Work Phone: Comment on above: PATIENT NOT FASTINGP ERFORMED BY: CB [facility] Ypyijw2241 [address] [place] [id number] Bilirubin [Mass/Vol] 0.3 mg/dL Normal 0.0-1.2 [facility] Work Phone: Comment on above: PATIENT NOT FASTINGP ERFORMED BY: CB [facility] Qfzwnk9308 [address]Dublin [place] [id number] Calcium [Mass/Vol] 9.1 mg/dL Normal 8.7-10.2 [email or web address] Internal Medicine Work Phone: Comment on above: PATIENT NOT FASTINGP ERFORMED BY: CB [facility] Zbtyws8579 [address] [place] [id number] Chloride [Moles/Vol] 106 mmol/L Normal 96-106 [facility] Work Phone: Comment on above: PATIENT NOT FASTINGP ERFORMED BY: CB [facility] Iprnpz4438 [address] [place] [id number] CO2 [Moles/Vol] 22 mmol/L Normal 20-29 [facility] Internal Medicine Work Phone: Comment on above: PATIENT NOT FASTINGP ERFORMED BY: CB [facility] Kwwfle3638 [address] [place] [id number] Creatinine [Mass/Vol] 1.13 mg/dL Normal 0.76-1.27 [facility] Work Phone: Comment on above: PATIENT NOT FASTINGP ERFORMED BY: CB [facility] Ofzynu5547 [address] RoadD[address] [place] [id number] GFR/1.73 sq M predicted among blacks CKD-EPI (S/P/Bld) [Vol rate/Area] 83 mL/min/1.73 Normal [facility] Work Phone: Comment on above: PATIENT NOT FASTINGP ERFORMED BY: CB [facility] Owpxif7050 [address] [place] [id number] GFR/1.73 sq M predicted among non-blacks CKD-EPI (S/P/Bld) [Vol rate/Area] 72 mL/min/1.73 Normal [facility] Work Phone: Comment on above: PATIENT NOT FASTINGP ERFORMED BY: CB [facility] Ngciaj4167 [address] [place] [id number] Globulin (S) [Mass/Vol] 2.8 g/dL Normal 1.5-4.5 [facility] Work Phone: Comment on above: PATIENT NOT FASTINGP ERFORMED BY: CB [facility] Hvsmpe4385 [address] RoadDublin [place] [id number] Glucose [Mass/Vol] 94 mg/dL Normal 65-[address] [facility] Internal Medicine Work Phone: Comment on above: PATIENT NOT FASTINGP ERFORMED BY: CB [facility] Btueoc6915 [address] [place] [id number] Potassium [Moles/Vol] 4.5 mmol/L Normal 3.5-5.2 [facility] Internal Medicine Work Phone: Comment on above: PATIENT NOT FASTINGP ERFORMED BY: CB [facility] Scoawo1535 [address] [place] [id number] Protein [Mass/Vol] 6.9 g/dL Normal 6.0-8.[address] [facility] Internal Medicine Work Phone: Comment on above: PATIENT NOT FASTINGP ERFORMED BY: CB [facility] Idkcwp1626 [address] [place] [id number] Sodium [Moles/Vol] 141 mmol/L Normal 134-[address] [facility] Internal Medicine Work Phone: Comment on above: PATIENT NOT FASTINGP ERFORMED BY: CB [facility] Ntfjmh3516 [address] [place] [id number] Urea nitrogen [Mass/Vol] 13 mg/dL Normal 6-24 [facility] Work Phone: Comment on above: PATIENT NOT FASTINGP ERFORMED BY: CB [facility] Beucxk5086 [address] RoadDublin [place] [id number] Urea nitrogen/Creatinine [Mass ratio] 12 mg/mg Normal 9-20 [facility] Work Phone: Comment on above: PATIENT NOT FASTINGP ERFORMED BY: CB [facility] Apcnfa2644 [address]D[place] [id number] MICROALBUMINOrdered By: Syst em Retail Property Manager on 06-09-2020 Albumin DL <= 20 mg/L (U) [Mass/Vol] 4.7 ug/mL Normal [facility] Work Phone: Comment on above: PATIENT NOT FASTINGP ERFORMED BY: KIMI KeyNeuro[employer] Pharmaceuticalsesperanza MillerUijvch6420 [facility] MedicalCritical access hospital [id number] Information: SRC:UC Albumin/Creatinine (U) [Mass ratio] 3 {mg/g_creat} Normal 0-29 [facility] Work Phone: Comment on above: Normal: 0 - 29 Moder ately increased: 30 - 300 Severely increased: >300 Please note reference interval change PATIENT NOT FASTINGP ERFORMED BY: KIMI Mozes Fobxun2620 [facility] [id number] Information: SRC:UC Creatinine (U) [Mass/Vol] 156.0 mg/dL Normal [facility] Work Phone: Comment on above: PATIENT NOT FASTINGP ERFORMED BY: KIMI [employer] 3D70 [facility] MedicalCritical access hospital [id number] Information: SRC:UC PSA (PROSTATE SPECIFIC ANTIG EN) (V76.44)Ordered By: Small Animal Veterinarian on 06-09-2020 Prostate specific Ag [Mass/Vol] 0.9 ng/mL Normal 0.0-4.0 [facility] Work Phone: Comment on above: Hublished ECLIA methodol ogy. .According to the [place] [employer], Serum PSA shoulddecrease and remain at undetectable levels after radicalprostatectomy. The AUA defines biochemical recurrence as an initialPSA value 0.2 ng/mL or greater followed by a subsequent confirmatoryPSA value 0.2 ng/mL or greater.Values obtained with different assay methods or kits cannot be usedinterchangeably. Results cannot be interpreted as absolute evidenceof the presence or absence of malignant disease. PATIENT NOT FASTINGP ERFORMED BY: KIMI Coupon Wallet6370 [facility] MedicalCritical access hospital [id number] TSH (THYROID STIMULATING HOR RITESH) ([id number])Ordered By: Small Animal Veterinarian on 06-09-2020 TSH Qn 2.040 {uIU/mL} Normal 0.450-4.50 0 [facility] Work Phone: Comment on above: PATIENT NOT FASTINGP ERFORMED BY: CB [facility] Eydjcs[address] [place] [id number] URINE ARTURO CULTURE-IDENTIFICA [place] ([id number])Ordered By: Small Animal Veterinarian on 06-09-2020 Bacteria identified Cx Nom (U) NG36 Normal [facility] Work Phone: Comment on above: No growth in 36 - 48 hours. PATIENT NOT FASTINGP ERFORMED BY: CB [facility] Eqkgdj7[address] [place] [id number] Bacteria identified Cx Nom (U) Final report Normal [facility] Work Phone: Comment on above: PATIENT NOT FASTINGP ERFORMED BY: CB [facility] Saezsa[address] [place] [id number] Urinalysis, Office ([id number])Or dered By: Keerthi Naranjo on 06-09-2020 Bilirubin Ql (U) Negative Normal [facility] Work Phone: Bilirubin Ql (U) Negative Normal [facility]; [facility] Work Phone: Glucose Test strip (U) [Mass/Vol] Negative Normal [facility] Work Phone: Glucose Test strip (U) [Mass/Vol] Negative Normal [facility]; [facility] Work Phone: Hemoglobin Ql (U) Negative Normal Compre[facility] ens[facility] Work Phone: Hemoglobin Ql (U) Negative Normal Compre[facility] ens[facility]; [facility] Work Phone: Ketones Ql (U) Negative Normal Comprehens [facility] Work Phone: Ketones Ql (U) Negative Normal [facility]; [facility] Work Phone: Leukocyte esterase Test strip Ql (U) Negative Normal [facility] Work Phone: Leukocyte esterase Test strip Ql (U) Negative Normal [facility]; [facility] Work Phone: Nitrite Ql (U) Negative Normal [facility] Work Phone: Nitrite Ql (U) Negative Normal [facility]; [facility] Work Phone: pH (U) 5.0 [pH] Normal [facility] Work Phone: Comment on above: 5.5 Protein Ql (U) Negative Normal [facility] Work Phone: Protein Ql (U) Negative Normal [facility]; [facility] Work Phone: Specific gravity (U) [Rel density] 1.030 1 Abnormal [facility] Work Phone: Urobilinogen (24H U) [Mass/Time] Normal Normal [facility] Work Phone: ALLERGEN SKIN TEST-INHALANT 20 [facility] Vital Signs Date Time Vital Sign Value Performing Clinician Facility 04-30-2025 13:43-0400 Diastolic blood pressure 92 mm[Hg] Awilda Garcia MD Work Phone: [facility] 04-30-2025 13:43-0400 Systolic blood pressure 136 mm[Hg] Awilda Gacria MD Work Phone: [facility] 04-30-2025 13:25-0400 Body height 172.7 cm Awilda Garcia MD Work Phone: [facility] 04-30-2025 13:25-0400 Body mass index (BMI) [Ratio] 27.39 kg/m2 Awilda Garcia MD Work Phone: [facility] 04-30-2025 13:25-0400 Body temperature 97.3 [degF] wAilda Garcia MD Work Phone: [facility] 04-30-2025 13:25-0400 Body weight 81.7 kg Awilda Garcia MD Work Phone: [facility] 04-30-2025 13:25-0400 Heart rate 77 /min Awilda Garcia MD Work Phone: [facility] 04-30-2025 13:25-0400 SaO2% (BldA) [Mass fraction] 99 % Awilda Garcia MD Work Phone: [facility] 04-14-2025 23:51-0400 Body temperature 98.6 [degF] Shreya Emory SURGICAL SALES REPRESENTATIVE-C Work Phone: [facility] 04-14-2025 23:51-0400 Diastolic blood pressure 74 mm[Hg] Shreya Emory SURGICAL SALES REPRESENTATIVE-C Work Phone: [facility] 04-14-2025 23:51-0400 Heart rate 59 /min Shreya Emory SURGICAL SALES REPRESENTATIVE-C Work Phone: [facility] 04-14-2025 23:51-0400 Respiratory rate 17 /min Shreya Emory SURGICAL SALES REPRESENTATIVE-C Work Phone: [facility] 04-14-2025 23:51-0400 SaO2% (BldA) [Mass fraction] 98 % Shreya Emory SURGICAL SALES REPRESENTATIVE-C Work Phone: [facility] 04-14-2025 23:51-0400 Systolic blood pressure 108 mm[Hg] Shreya Emory SURGICAL SALES REPRESENTATIVE-C Work Phone: [facility] 04-14-2025 19:57-0400 Body height 172.72 cm Shreya Emory SURGICAL SALES REPRESENTATIVE-C Work Phone: [facility] 04-14-2025 19:57-0400 Body mass index (BMI) [Ratio] 28.3 kg/m2 Shreya Emory SURGICAL SALES REPRESENTATIVE-C Work Phone: [facility] 04-14-2025 19:57-0400 Body weight 84.36 kg Shreya Emory SURGICAL SALES REPRESENTATIVE-C Work Phone: [facility] 03-26-2025 14:21-0400 Body temperature 98 [degF] Shreya Emory SURGICAL SALES REPRESENTATIVE-C Work Phone: [facility] 03-26-2025 14:21-0400 Diastolic blood pressure 84 mm[Hg] Shreya Emory SURGICAL SALES REPRESENTATIVE-C Work Phone: [facility] 03-26-2025 14:21-0400 Heart rate 67 /min Shreya Cat SURGICAL SALES REPRESENTATIVE-C Work Phone: [facility] 03-26-2025 14:21-0400 Respiratory rate 14 /min Shreya Cat SURGICAL SALES REPRESENTATIVE-C Work Phone: [facility] 03-26-2025 14:21-0400 SaO2% (BldA) [Mass fraction] 99 % Shreya Cat SURGICAL SALES REPRESENTATIVE-C Work Phone: [facility] 03-26-2025 14:21-0400 Systolic blood pressure 128 mm[Hg] Shreya Cat SURGICAL SALES REPRESENTATIVE-C Work Phone: [facility] 03-26-2025 09:01-0400 Body height 172.72 cm Shreya Cat SURGICAL SALES REPRESENTATIVE-C Work Phone: [facility] 03-26-2025 09:01-0400 Body mass index (BMI) [Ratio] 27.7 kg/m2 Shreya Cat SURGICAL SALES REPRESENTATIVE-C Work Phone: [facility] 03-26-2025 09:01-0400 Body weight 82.7 kg Shreya Cat SURGICAL SALES REPRESENTATIVE-C Work Phone: [facility] 12-03-2024 14:59-0500 Body height 172.7 cm George Noriega MD Work Phone: [facility] 12-03-2024 14:59-0500 Body mass index (BMI) [Ratio] 27.25 kg/m2 George Noriega MD Work Phone: [facility] 12-03-2024 14:59-0500 Body weight 81.3 kg George Noriega MD Work Phone: [facility] 12-03-2024 14:59-0500 Diastolic blood pressure 96 mm[Hg] George Noriega MD Work Phone: [facility] 12-03-2024 14:59-0500 Heart rate 87 /min George Noriega MD Work Phone: [facility] 12-03-2024 14:59-0500 SaO2% (BldA) [Mass fraction] 98 % George Noriega MD Work Phone: [facility] 12-03-2024 14:59-0500 Systolic blood pressure 128 mm[Hg] George Noriega MD Work Phone: [facility] 08-20-2024 13:27-0500 Diastolic blood pressure 94 mm[Hg] Awilda Garcia MD Work Phone: [facility] 08-20-2024 13:27-0500 Systolic blood pressure 132 mm[Hg] Awilda Garcia MD Work Phone: [facility] 08-20-2024 12:50-0500 Body height 172.7 cm Awilda Garcia MD Work Phone: [facility] 08-20-2024 12:50-0500 Body mass index (BMI) [Ratio] 27.76 kg/m2 Awilda Garcia MD Work Phone: [facility] 08-20-2024 12:50-0500 Body temperature 99.1 [degF] Awilda Garcia MD Work Phone: [facility] 08-20-2024 12:50-0500 Body weight 82.8 kg Awilda Garcia MD Work Phone: [facility] 08-20-2024 12:50-0500 Heart rate 85 /min Awilda Garcia MD Work Phone: [facility] 08-20-2024 12:50-0500 SaO2% (BldA) [Mass fraction] 98 % Awilda Garcia MD Work Phone: [facility] 07-18-2024 15:28-0400 Body height 172.7 cm George Noriega MD Work Phone: [facility] 07-18-2024 15:28-0400 Body mass index (BMI) [Ratio] 28.02 kg/m2 George Noriega MD Work Phone: [facility] 07-18-2024 15:28-0400 Body weight 83.6 kg George Noriega MD Work Phone: [facility] 07-18-2024 15:28-0400 Diastolic blood pressure 86 mm[Hg] George Noriega MD Work Phone: [facility] 07-18-2024 15:28-0400 Heart rate 85 /min George Noriega MD Work Phone: [facility] 07-18-2024 15:28-0400 Systolic blood pressure 146 mm[Hg] George Noriega MD Work Phone: [facility] 12-22-2023 14:03-0400 Diastolic blood pressure 84 mm[Hg] Awilda Garcia MD Work Phone: [facility] 12-22-2023 14:03-0400 Systolic blood pressure 137 mm[Hg] Awilda Garcia MD Work Phone: [facility] 12-22-2023 13:50-0400 Body height 167.6 cm Awilda Garcia MD Work Phone: [facility] 12-22-2023 13:50-0400 Body temperature 97.9 [degF] Awilda Garcia MD Work Phone: [facility] 12-22-2023 13:50-0400 Body weight 81.5 kg Awilda Garcia MD Work Phone: [facility] 12-22-2023 13:50-0400 Heart rate 83 /min Awilda Garcia MD Work Phone: [facility] 12-22-2023 13:50-0400 Respiratory rate 18 /min Awilda Garcia MD Work Phone: [facility] 12-22-2023 13:50-0400 SaO2% (BldA) [Mass fraction] 98 % Awilda Garcia MD Work Phone: [facility] 11-06-2023 15:48-0500 Body temperature 97.81 [degF] Kee Duffy MD Work Phone: [facility] 11-06-2023 15:48-0500 Body weight 80.1 kg Kee Duffy MD Work Phone: [facility] 11-06-2023 15:48-0500 Diastolic blood pressure 97 mm[Hg] Kee Duffy MD Work Phone: [facility] 11-06-2023 15:48-0500 Heart rate 74 /min Kee Duffy MD Work Phone: [facility] 11-06-2023 15:48-0500 Respiratory rate 18 /min Kee Duffy MD Work Phone: [facility] 11-06-2023 15:48-0500 SaO2% (BldA) [Mass fraction] 99 % Kee Duffy MD Work Phone: [facility] 11-06-2023 15:48-0500 Systolic blood pressure 160 mm[Hg] Kee Duffy MD Work Phone: [facility] 11-03-2023 10:27-0500 Diastolic blood pressure 80 mm[Hg] Stevenson Dunn MD Work Phone: [facility] 11-03-2023 10:27-0500 Heart rate 77 /min Stevenson Dunn MD Work Phone: [facility] 11-03-2023 10:27-0500 Systolic blood pressure 130 mm[Hg] Stevenson Dunn MD Work Phone: [facility] 09-23-2023 21:04-0500 Diastolic blood pressure 78 mm[Hg] [facility] 09-23-2023 21:04-0500 Heart rate 93 /min [facility] 09-23-2023 21:04-0500 Respiratory rate 14 /min [facility] 09-23-2023 21:04-0500 SaO2% (BldA) [Mass fraction] 94 % [facility] 09-23-2023 21:04-0500 Systolic blood pressure 120 mm[Hg] [facility] 09-23-2023 19:33-0500 Body mass index (BMI) [Ratio] 27.4 kg/m2 [facility] 09-23-2023 19:33-0500 Body weight 81.8 kg [facility] 09-23-2023 17:43-0500 Body height 172.72 cm [facility] 09-23-2023 17:43-0500 Body temperature 97.5 [degF] [facility] 08-23-2023 13:12-0500 Body height 172.7 cm Awilda Garcia MD Work Phone: [facility] 08-23-2023 13:12-0500 Body temperature 98.4 [degF] Awilda Garcia MD Work Phone: [facility] 08-23-2023 13:12-0500 Body weight 80.1 kg Awilda Garcia MD Work Phone: [facility] 08-23-2023 13:12-0500 Diastolic blood pressure 88 mm[Hg] Awilda Garcia MD Work Phone: [facility] 08-23-2023 13:12-0500 Heart rate 101 /min Awilda Garcia MD Work Phone: [facility] 08-23-2023 13:12-0500 Respiratory rate 16 /min Awilda Garcia MD Work Phone: [facility] 08-23-2023 13:12-0500 SaO2% (BldA) [Mass fraction] 99 % Awilda Garcia MD Work Phone: [facility] 08-23-2023 13:12-0500 Systolic blood pressure 125 mm[Hg] Awilda Garcia MD Work Phone: [facility] 06-19-2023 14:30-0400 Body height 172.72 cm Keerthi Vega [facility]; [facility] Work Phone: 06-19-2023 14:30-0400 Body mass index (BMI) [Ratio] 26.15 kg/m2 Keerthi Slarb METAL HANDLER [facility]; [facility] Work Phone: 06-19-2023 14:30-0400 Body surface area Derived from formula 1.92 m2 Keerthi Slarb METAL HANDLER [facility]; [facility] Work Phone: 06-19-2023 14:30-0400 Body temperature 97.3 [degF] Keerthi Slarb METAL HANDLER [facility]; [facility] Work Phone: Comment on above: Method: Temporal 06-19-2023 14:30-0400 Body weight 78.02 kg Keerthi Slarb METAL HANDLER [facility]; [facility] Work Phone: 06-19-2023 14:30-0400 Diastolic blood pressure 78 mm[Hg] Keerthi Slarb METAL HANDLER [facility]; [facility] Work Phone: Comment on above: Patient Position: Sitting; Cuff Location : Left Arm; Cuff Size: Standard 06-19-2023 14:30-0400 Heart rate 93 /min Keerthi Slarb METAL HANDLER [facility]; [facility] Work Phone: Comment on above: Pattern: Regular 06-19-2023 14:30-0400 Respiratory rate 16 /min Keerthi Slarb METAL HANDLER [facility]; [facility] Work Phone: Comment on above: Pattern: Unlabored 06-19-2023 14:30-0400 SaO2% (BldA) [Mass fraction] 98 % Keerthi Slarb METAL HANDLER [facility]; [facility] Work Phone: Comment on above: Room air 06-19-2023 14:30-0400 Systolic blood pressure 126 mm[Hg] Keerthi Slarb METAL HANDLER [facility]; [facility] Work Phone: Comment on above: Patient Position: Sitting; Cuff Location : Left Arm; Cuff Size: Standard 06-16-2023 16:16-0400 Diastolic blood pressure 62 mm[Hg] ROBINA Cat Work Phone: [facility] 06-16-2023 16:16-0400 Heart rate 81 /min SURGICAL SALES REPRESENTATIVEArmando Cat Work Phone: [facility] 06-16-2023 16:16-0400 Respiratory rate 16 /min SURGICAL SALES REPRESENTATIVE-C Shreya Cat Work Phone: [facility] 06-16-2023 16:16-0400 SaO2% (BldA) [Mass fraction] 99 % SURGICAL SALES REPRESENTATIVE-C Shreya Cat Work Phone: [facility] 06-16-2023 16:16-0400 Systolic blood pressure 100 mm[Hg] SURGICAL SALES REPRESENTATIVE-C Shreya Cat Work Phone: [facility] 06-16-2023 10:55-0400 Body height 172.72 cm SURGICAL SALES REPRESENTATIVE-C Shreya Cat Work Phone: [facility] 06-16-2023 10:55-0400 Body mass index (BMI) [Ratio] 26.5 kg/m2 SURGICAL SALES REPRESENTATIVE-C Shreya Cat Work Phone: [facility] 06-16-2023 10:55-0400 Body temperature 97.5 [degF] SURGICAL SALES REPRESENTATIVE-C Shreya Cat Work Phone: [facility] 06-16-2023 10:55-0400 Body weight 79.19 kg SURGICAL SALES REPRESENTATIVE-C Shreya Cat Work Phone: [facility] 05-31-2023 14:25-0400 Body height 172.72 cm LESLEY Marquze LPN [facility] Work Phone: 05-31-2023 14:25-0400 Body mass index (BMI) [Ratio] 26.15 kg/m2 LESLEY Marquez LPN [facility]; [facility] Work Phone: 05-31-2023 14:25-0400 Body surface area Derived from formula 1.92 m2 LESLEY Marquez LPN [facility]; [facility] Work Phone: 05-31-2023 14:25-0400 Body temperature 97.6 [degF] LESLEY Marquez LPN [facility]; [facility] Work Phone: Comment on above: Method: Temporal 05-31-2023 14:25-0400 Body weight 78.02 kg LESLEY Marquez LPN [facility]; [facility] Work Phone: 05-31-2023 14:25-0400 Diastolic blood pressure 78 mm[Hg] LESLEY Jimmy SHEPHERD [facility] Work Phone: Comment on above: Patient Position: Sitting; Cuff Location : Left Arm; Cuff Size: Standard 05-31-2023 14:25-0400 Heart rate 90 /min LESLEY Marquez LPN [facility]; [facility] Work Phone: Comment on above: Pattern: Regular 05-31-2023 14:25-0400 Respiratory rate 20 /min LESLEY Marquez LPN [facility]; [facility] Work Phone: Comment on above: Pattern: Unlabored 05-31-2023 14:25-0400 SaO2% (BldA) [Mass fraction] 97 % LESLEY Marquez LPN [facility]; [facility] Work Phone: Comment on above: Room air 05-31-2023 14:25-0400 Systolic blood pressure 122 mm[Hg] LESLEY Marquez LPN [facility]; [facility] Work Phone: Comment on above: Patient Position: Sitting; Cuff Location : Left Arm; Cuff Size: Standard 05-19-2023 10:56-0400 Body mass index (BMI) [Ratio] 27.2 kg/m2 SURGICAL SALES REPRESENTATIVE-Margarita Cat Work Phone: [facility] 05-19-2023 10:56-0400 Body weight 81.19 kg SURGICAL SALES REPRESENTATIVE-Margarita Cat Work Phone: [facility] 05-19-2023 10:56-0400 Diastolic blood pressure 82 mm[Hg] VIVEK-Margarita Cat Work Phone: [facility] 05-19-2023 10:56-0400 Heart rate 91 /min ROBINA Cat Work Phone: [facility] 05-19-2023 10:56-0400 Respiratory rate 18 /min SURGICAL SALES REPRESENTATIVE-C Shreya Cat Work Phone: [facility] 05-19-2023 10:56-0400 SaO2% (BldA) [Mass fraction] 99 % SURGICAL SALES REPRESENTATIVE-C Shreya Cat Work Phone: [facility] 05-19-2023 10:56-0400 Systolic blood pressure 123 mm[Hg] SURGICAL SALES REPRESENTATIVE-C Shreya Cat Work Phone: [facility] 05-15-2023 14:09-0400 Body weight 79.38 kg Leyla Tam MD Work Phone: [facility] 05-15-2023 14:09-0400 Diastolic blood pressure 82 mm[Hg] Leyla Tam MD Work Phone: [facility] 05-15-2023 14:09-0400 Heart rate 89 /min Leyla Tam MD Work Phone: [facility] 05-15-2023 14:09-0400 SaO2% (BldA) [Mass fraction] 98 % Leyla Tam MD Work Phone: [facility] 05-15-2023 14:09-0400 Systolic blood pressure 120 mm[Hg] Leyla Tam MD Work Phone: [facility] 04-25-2023 11:36-0400 Diastolic blood pressure 80 mm[Hg] Roby Mock MD Work Phone: [facility] 04-25-2023 11:36-0400 Heart rate 70 /min Roby Mock MD Work Phone: [facility] 04-25-2023 11:36-0400 Respiratory rate 18 /min Roby Mock MD Work Phone: [facility] 04-25-2023 11:36-0400 SaO2% (BldA) [Mass fraction] 98 % Roby Mock MD Work Phone: [facility] 04-25-2023 11:36-0400 Systolic blood pressure 119 mm[Hg] Roby Mock MD Work Phone: [facility] 04-25-2023 10:48-0400 Body temperature 97.2 [degF] Roby Mock MD Work Phone: [facility] 04-25-2023 10:22-0400 Body height 167.6 cm Roby Mock MD Work Phone: [facility] 04-25-2023 10:22-0400 Body mass index (BMI) [Ratio] 28.25 kg/m2 Roby Mock MD Work Phone: [facility] 04-25-2023 10:22-0400 Body weight 79.38 kg Roby Mock MD Work Phone: [facility] 04-14-2023 14:23-0400 Body weight 79.38 kg Sebastain Abdalla Jr., DO Work Phone: [facility] 04-14-2023 14:23-0400 Diastolic blood pressure 84 mm[Hg] Sebastian Abdalla Jr., DO Work Phone: [facility] 04-14-2023 14:23-0400 Heart rate 72 /min Sebastian Abdalla Jr., DO Work Phone: [facility] 04-14-2023 14:23-0400 SaO2% (BldA) [Mass fraction] 99 % Sebastian Abdalla Jr., DO Work Phone: [facility] 04-14-2023 14:23-0400 Systolic blood pressure 124 mm[Hg] Sebastian Abdalla Jr., DO Work Phone: [facility] 04-14-2023 10:41-0400 Body height 172.72 cm [facility] 04-14-2023 10:41-0400 Body mass index (BMI) [Ratio] 26.2 kg/m2 [facility] 04-14-2023 10:41-0400 Body temperature 98.6 [degF] [facility] 04-14-2023 10:41-0400 Body weight 78.38 kg [facility] 04-14-2023 10:41-0400 Diastolic blood pressure 89 mm[Hg] [facility] 04-14-2023 10:41-0400 Heart rate 76 /min [facility] 04-14-2023 10:41-0400 Respiratory rate 14 /min [facility] 04-14-2023 10:41-0400 SaO2% (BldA) [Mass fraction] 100 % [facility] 04-14-2023 10:41-0400 Systolic blood pressure 142 mm[Hg] [facility] 04-10-2023 15:51-0400 Body height 167.6 cm Jassi Wilson MD Work Phone: [facility] 04-10-2023 15:51-0400 Body temperature 98.1 [degF] Jassi Wilson MD Work Phone: [facility] 04-10-2023 15:51-0400 Body weight 78.29 kg Jassi Wilson MD Work Phone: [facility] 04-10-2023 15:51-0400 Diastolic blood pressure 80 mm[Hg] Jassi Wilson MD Work Phone: [facility] 04-10-2023 15:51-0400 Heart rate 99 /min Jassi Wilson MD Work Phone: [facility] 04-10-2023 15:51-0400 SaO2% (BldA) [Mass fraction] 99 % Jassi Wilson MD Work Phone: [facility] 04-10-2023 15:51-0400 Systolic blood pressure 130 mm[Hg] Jassi Wilson MD Work Phone: [facility] 03-07-2023 14:46-0400 Body height 172.72 cm Keerthi Naranjo LPN [facility]; [facility] Work Phone: 03-07-2023 14:46-0400 Body mass index (BMI) [Ratio] 26.23 kg/m2 Keerthi Naranjo LPN [facility]; [facility] Work Phone: 03-07-2023 14:46-0400 Body surface area Derived from formula 1.92 m2 Keerthi Slarb METAL HANDLER [facility]; [facility] Work Phone: 03-07-2023 14:46-0400 Body temperature 97.6 [degF] Keerthi Slarb METAL HANDLER [facility]; [facility] Work Phone: Comment on above: Method: Temporal 03-07-2023 14:46-0400 Body weight 78.25 kg Keerthi Slarb METAL HANDLER [facility]; [facility] Work Phone: 03-07-2023 14:46-0400 Diastolic blood pressure 78 mm[Hg] Keerthi Slarb METAL HANDLER [facility]; [facility] Work Phone: Comment on above: Patient Position: Sitting; Cuff Location : Left Arm; Cuff Size: Standard 03-07-2023 14:46-0400 Heart rate 76 /min Keerthi Slarb METAL HANDLER [facility]; [facility] Work Phone: Comment on above: Pattern: Regular 03-07-2023 14:46-0400 Respiratory rate 15 /min Keerthi Slarb METAL HANDLER [facility]; [facility] Work Phone: Comment on above: Pattern: Unlabored 03-07-2023 14:46-0400 SaO2% (BldA) [Mass fraction] 97 % Keerthi Slarb METAL HANDLER [facility]; [facility] Work Phone: Comment on above: Room air 03-07-2023 14:46-0400 Systolic blood pressure 128 mm[Hg] Keerthi Slarb METAL HANDLER [facility]; [facility] Work Phone: Comment on above: Patient Position: Sitting; Cuff Location : Left Arm; Cuff Size: Standard 02-09-2023 00:10-0400 Heart rate 86 /min SURGICAL SALES REPRESENTATIVE-C Shreya Cat Work Phone: [facility] 02-09-2023 00:10-0400 Respiratory rate 19 /min SURGICAL SALES REPRESENTATIVE-Margarita Cat Work Phone: [facility] 02-09-2023 00:10-0400 SaO2% (BldA) [Mass fraction] 96 % SURGICAL SALES REPRESENTATIVE-C Shreya Cat Work Phone: [facility] 02-08-2023 21:08-0400 Body height 172.72 cm SURGICAL SALES REPRESENTATIVE-C Shreya Cat Work Phone: [facility] 02-08-2023 21:08-0400 Body mass index (BMI) [Ratio] 26.4 kg/m2 SURGICAL SALES REPRESENTATIVE-C Shreya Cat Work Phone: [facility] 02-08-2023 21:08-0400 Body temperature 97.7 [degF] SURGICAL SALES REPRESENTATIVE-C Shreya Cat Work Phone: [facility] 02-08-2023 21:08-0400 Body weight 78.92 kg SURGICAL SALES REPRESENTATIVE-C Shreya Cat Work Phone: [facility] 02-08-2023 21:08-0400 Diastolic blood pressure 77 mm[Hg] SURGICAL SALES REPRESENTATIVE-C Shreya Cat Work Phone: [facility] 02-08-2023 21:08-0400 Systolic blood pressure 139 mm[Hg] SURGICAL SALES REPRESENTATIVE-C Shreya Cat Work Phone: [facility] 02-08-2023 14:22-0400 Body height 172.72 cm [facility] Work Phone: 02-08-2023 14:22-0400 Body mass index (BMI) [Ratio] 26.23 kg/m2 [facility] Work Phone: 02-08-2023 14:22-0400 Body surface area Derived from formula 1.92 m2 [facility] Work Phone: 02-08-2023 14:22-0400 Body temperature 97.2 [degF] [facility] Work Phone: 02-08-2023 14:22-0400 Body weight 78.25 kg [facility] Work Phone: 02-08-2023 14:22-0400 Diastolic blood pressure 82 mm[Hg] [place] [facility] Work Phone: Comment on above: Patient Position: Sitting; Cuff Location : Left Arm; Cuff Size: Standard 02-08-2023 14:22-0400 Heart rate 113 /min [place] [facility] Work Phone: Comment on above: Pattern: Regular 02-08-2023 14:22-0400 Respiratory rate 17 /[facility] Work Phone: Comment on above: Pattern: Unlabored 02-08-2023 14:22-0400 SaO2% (BldA) [Mass fraction] 99 % [facility]; [facility] Work Phone: Comment on above: Room air 02-08-2023 14:22-0400 Systolic blood pressure 126 mm[Hg] [facility] Work Phone: Comment on above: Patient Position: Sitting; Cuff Location : Left Arm; Cuff Size: Standard 01-31-2023 13:57-0400 Body height 175.3 cm Prashanth Luna APRN.AUTOMATIC SHIRRING MACHINE OPERATOR Work Phone: [facility] 01-31-2023 13:57-0400 Body weight 78.47 kg Prashanth Luna APRN.AUTOMATIC SHIRRING MACHINE OPERATOR Work Phone: [facility] 01-31-2023 13:57-0400 Diastolic blood pressure 118 mm[Hg] Prashanth Luna APRN.AUTOMATIC SHIRRING MACHINE OPERATOR Work Phone: [facility] 01-31-2023 13:57-0400 Heart rate 88 /min Prashanth Luna APRN.AUTOMATIC SHIRRING MACHINE OPERATOR Work Phone: [facility] 01-31-2023 13:57-0400 SaO2% (BldA) [Mass fraction] 99 % Prashanth Luna APRN.AUTOMATIC SHIRRING MACHINE OPERATOR Work Phone: [facility] 01-31-2023 13:57-0400 Systolic blood pressure 159 mm[Hg] Prashanth Luna WORM 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 Work Phone: [facility] 01-23-2023 10:00-0400 Diastolic blood pressure 110 mm[Hg] Usman O'Polacca PHOTOGRAPHIC SUPERVISOR Work Phone: [facility] 01-23-2023 10:00-0400 Heart rate 99 /min Usman O'Polacca PHOTOGRAPHIC SUPERVISOR Work Phone: [facility] 01-23-2023 10:00-0400 Systolic blood pressure 164 mm[Hg] Usman O'Polacca PHOTOGRAPHIC SUPERVISOR Work Phone: [facility] 12-20-2022 13:49-0400 Diastolic blood pressure 75 mm[Hg] Awilda Garcia MD Work Phone: [facility] 12-20-2022 13:49-0400 Systolic blood pressure 125 mm[Hg] Awilda Garcia MD Work Phone: [facility] 12-20-2022 13:08-0400 Body height 175.3 cm Awilda Garcia MD Work Phone: [facility] 12-20-2022 13:08-0400 Body weight 77.56 kg Awilda Garcia MD Work Phone: [facility] 12-20-2022 13:08-0400 Heart rate 90 /min Awilda Garcia MD Work Phone: [facility] 12-20-2022 13:08-0400 SaO2% (BldA) [Mass fraction] 99 % Awilda Garcia MD Work Phone: [facility] 11-23-2022 08:40-0500 Body mass index (BMI) [Ratio] 28 kg/m2 SURGICAL SALES REPRESENTATIVEArmando Cat Work Phone: [facility] 11-23-2022 08:40-0500 Body weight 78.69 kg SURGICAL SALES REPRESENTATIVE-Margarita Cat Work Phone: [facility] 11-23-2022 08:40-0500 Diastolic blood pressure 100 mm[Hg] SURGICAL SALES REPRESENTATIVE-C Shreya Cat Work Phone: [facility] 11-23-2022 08:40-0500 Heart rate 71 /min SURGICAL SALES REPRESENTATIVE-C Shreya Cat Work Phone: [facility] 11-23-2022 08:40-0500 Respiratory rate 18 /min SURGICAL SALES REPRESENTATIVE-C Shreya Cat Work Phone: [facility] 11-23-2022 08:40-0500 SaO2% (BldA) [Mass fraction] 99 % SURGICAL SALES REPRESENTATIVE-C Shreya Cat Work Phone: [facility] 11-23-2022 08:40-0500 Systolic blood pressure 170 mm[Hg] SURGICAL SALES REPRESENTATIVE-C Shreya Cat Work Phone: [facility] 10-21-2022 11:07-0500 Body height 172.72 cm Yvette Hernandez MA [facility]; [facility] Work Phone: 10-21-2022 11:07-0500 Body mass index (BMI) [Ratio] 26.23 kg/m2 Yvette Hernandez MA [facility]; [facility] Work Phone: 10-21-2022 11:07-0500 Body surface area Derived from formula 1.92 m2 Yvette Hernandez MA [facility]; [facility] Work Phone: 10-21-2022 11:07-0500 Body temperature 98.6 [degF] Yvette Hernandez MA [facility]; [facility] Work Phone: 10-21-2022 11:07-0500 Body weight 78.25 kg Yvette Hernandez MA [facility]; [facility] Work Phone: 10-21-2022 11:07-0500 Diastolic blood pressure 90 mm[Hg] Yvette Hernandez MA [facility]; [facility] Work Phone: Comment on above: Patient Position: Sitting; Cuff Location : Left Arm; Cuff Size: Standard 10-21-2022 11:07-0500 Heart rate 91 /min Yvette Hernandez MA [facility]; [facility] Work Phone: Comment on above: Pattern: Regular 10-21-2022 11:07-0500 Respiratory rate 18 /min Yvette Hernandez MA [facility]; [facility] Work Phone: Comment on above: Pattern: Unlabored 10-21-2022 11:07-0500 SaO2% (BldA) [Mass fraction] 98 % Yvette Hernandez MA [facility]; [facility] Work Phone: Comment on above: Room air 10-21-2022 11:07-0500 Systolic blood pressure 142 mm[Hg] Yvette Hernandez MA [facility]; [facility] Work Phone: Comment on above: Patient Position: Sitting; Cuff Location : Left Arm; Cuff Size: Standard 09-28-2022 11:56-0500 Body height 172.72 cm Yvette Hernandez MA [facility]; [facility] Work Phone: 09-28-2022 11:56-0500 Body mass index (BMI) [Ratio] 26.23 kg/m2 Yvette Hernandez MA [facility]; [facility] Work Phone: 09-28-2022 11:56-0500 Body surface area Derived from formula 1.92 m2 Yvette Hernandez MA [facility]; [facility] Work Phone: 09-28-2022 11:56-0500 Body temperature 98.6 [degF] Yvette Hernandez MA [facility]; [facility] Work Phone: 09-28-2022 11:56-0500 Body weight 78.25 kg Yvette Hernandez MA [facility]; [facility] Work Phone: 09-28-2022 11:56-0500 Diastolic blood pressure 90 mm[Hg] Yvette Hernandez MA [facility]; [facility] Work Phone: Comment on above: Patient Position: Sitting; Cuff Location : Left Arm; Cuff Size: Standard 09-28-2022 11:56-0500 Heart rate 50 /min Yvette Hernandez MA [facility]; [facility] Work Phone: Comment on above: Pattern: Regular 09-28-2022 11:56-0500 SaO2% (BldA) [Mass fraction] 97 % Yvette Hernandez MA [facility]; [facility] Work Phone: Comment on above: Room air 09-28-2022 11:56-0500 Systolic blood pressure 130 mm[Hg] Yvette Hernandez MA [facility]; [facility] Work Phone: Comment on above: Patient Position: Sitting; Cuff Location : Left Arm; Cuff Size: Standard 09-19-2022 08:22-0500 Body height 172.72 cm Yvette Hernandez MA [facility]; [facility] Work Phone: 09-19-2022 08:22-0500 Body mass index (BMI) [Ratio] 26.23 kg/m2 Yvette Hernandez MA [facility]; [facility] Work Phone: 09-19-2022 08:22-0500 Body surface area Derived from formula 1.92 m2 Yvette Hernandez MA [facility]; [facility] Work Phone: 09-19-2022 08:22-0500 Body temperature 96.7 [degF] Yvette Hernandez MA [facility]; [facility] Work Phone: 09-19-2022 08:22-0500 Body weight 78.25 kg Yvette Hernandez MA [facility]; [facility] Work Phone: 09-19-2022 08:22-0500 Diastolic blood pressure 80 mm[Hg] Yvette Hernandez MA [facility]; [facility] Work Phone: Comment on above: Patient Position: Sitting; Cuff Location : Left Arm; Cuff Size: Standard 09-19-2022 08:22-0500 Heart rate 93 /min Yvette Hernandez MA [facility]; [facility] Work Phone: Comment on above: Pattern: Regular 09-19-2022 08:22-0500 Respiratory rate 16 /min Yvette Hernanedz MA [facility]; [facility] Work Phone: Comment on above: Pattern: Unlabored 09-19-2022 08:22-0500 SaO2% (BldA) [Mass fraction] 96 % Yvette Hernandez MA [facility]; [facility] Work Phone: Comment on above: Room air 09-19-2022 08:22-0500 Systolic blood pressure 130 mm[Hg] Yvette Hernandez MA [facility]; [facility] Work Phone: Comment on above: Patient Position: Sitting; Cuff Location : Left Arm; Cuff Size: Standard 07-27-2022 12:35-0400 Body height 167.64 cm SURGICAL SALES REPRESENTATIVE-C Shreya Emory Work Phone: [facility] Work Phone: 07-27-2022 12:35-0400 Body mass index (BMI) [Ratio] 27.7 kg/m2 SURGICAL SALES REPRESENTATIVE-C Shreya Emory Work Phone: [facility] Work Phone: 07-27-2022 12:35-0400 Body weight 78.01 kg SURGICAL SALES REPRESENTATIVE-C Shreya Emory Work Phone: [facility] Work Phone: 07-27-2022 12:35-0400 Diastolic blood pressure 104 mm[Hg] SURGICAL SALES REPRESENTATIVE-C Shreya Emory Work Phone: [facility] Work Phone: 07-27-2022 12:35-0400 Heart rate 82 /min SURGICAL SALES REPRESENTATIVE-C Shreya Emory Work Phone: [facility] Work Phone: 07-27-2022 12:35-0400 Respiratory rate 16 /min SURGICAL SALES REPRESENTATIVE-C Shreya Emory Work Phone: [facility] Work Phone: 07-27-2022 12:35-0400 SaO2% (BldA) [Mass fraction] 100 % SURGICAL SALES REPRESENTATIVE-C Shreya Cat Work Phone: [facility] Work Phone: 07-27-2022 12:35-0400 Systolic blood pressure 148 mm[Hg] SURGICAL SALES REPRESENTATIVE-C Shreya Cat Work Phone: [facility] Work Phone: 07-13-2022 15:21-0400 Body height 172.72 cm Keerthi Slarb METAL HANDLER [facility] Work Phone: 07-13-2022 15:21-0400 Body mass index (BMI) [Ratio] 26.19 kg/m2 Keerthi Slarb METAL HANDLER [facility] Work Phone: 07-13-2022 15:21-0400 Body surface area Derived from formula 1.92 m2 Keerthi Slarb METAL HANDLER [facility] Work Phone: 07-13-2022 15:21-0400 Body temperature 97.1 [degF] Keerthi Slarb METAL HANDLER [facility] Work Phone: 07-13-2022 15:21-0400 Body weight 78.13 kg Keerthi Slarb METAL HANDLER [facility] Work Phone: 07-13-2022 15:21-0400 Diastolic blood pressure 98 mm[Hg] Keerthi Slarb METAL HANDLER [facility] Work Phone: Comment on above: Patient Position: Sitting; Cuff Location : Left Arm; Cuff Size: Standard 07-13-2022 15:21-0400 Heart rate 103 /min Keerthi Slarb METAL HANDLER [facility] Work Phone: Comment on above: Pattern: Regular 07-13-2022 15:21-0400 Respiratory rate 16 /min Keerthi Slarb METAL HANDLER [facility] Work Phone: Comment on above: Pattern: Unlabored 07-13-2022 15:21-0400 SaO2% (BldA) [Mass fraction] 98 % Keerthi Naranjo METAL HANDLER [facility]; [facility] Work Phone: Comment on above: Room air 07-13-2022 15:21-0400 Systolic blood pressure 162 mm[Hg] Keerthi Naranjo METAL HANDLER [facility] Work Phone: Comment on above: Patient Position: Sitting; Cuff Location : Left Arm; Cuff Size: Standard 07-08-2022 15:31-0400 Diastolic blood pressure 96 mm[Hg] [facility] Work Phone: 07-08-2022 15:31-0400 Heart rate 80 /min [facility] Work Phone: 07-08-2022 15:31-0400 Respiratory rate 12 /min [facility] Work Phone: 07-08-2022 15:31-0400 SaO2% (BldA) [Mass fraction] 96 % [facility] Work Phone: 07-08-2022 15:31-0400 Systolic blood pressure 135 mm[Hg] [facility] Work Phone: 07-08-2022 11:53-0400 Body height 167.64 cm [facility] Work Phone: 07-08-2022 11:53-0400 Body mass index (BMI) [Ratio] 28 kg/m2 [facility] Work Phone: 07-08-2022 11:53-0400 Body temperature 97.4 [degF] [facility] Work Phone: 07-08-2022 11:53-0400 Body weight 78.8 kg [facility] Work Phone: 06-22-2022 21:11-0400 Diastolic blood pressure 95 mm[Hg] [facility] Work Phone: 06-22-2022 21:11-0400 Heart rate 71 /min [facility] Work Phone: 06-22-2022 21:11-0400 Respiratory rate 15 /min [facility] Work Phone: 06-22-2022 21:11-0400 SaO2% (BldA) [Mass fraction] 98 % [facility] Work Phone: 06-22-2022 21:11-0400 Systolic blood pressure 133 mm[Hg] [facility] Work Phone: 06-22-2022 18:03-0400 Body temperature 97.8 [degF] [facility] Work Phone: 06-22-2022 15:34-0400 Body height 172.72 cm [facility] Work Phone: 06-22-2022 15:34-0400 Body mass index (BMI) [Ratio] 26.1 kg/m2 [facility] Work Phone: 06-22-2022 15:34-0400 Body weight 78.01 kg [facility] Work Phone: 06-15-2022 10:25-0400 Body height 172.72 cm Ting Marte LPN [facility] Work Phone: 06-15-2022 10:25-0400 Body mass index (BMI) [Ratio] 26.19 kg/m2 Ting Marte LPN [facility] Work Phone: 06-15-2022 10:25-0400 Body surface area Derived from formula 1.92 m2 Tign Marte LPN [facility] Work Phone: 06-15-2022 10:25-0400 Body temperature 97.8 [degF] Ting Marte LPN [facility] Work Phone: 06-15-2022 10:25-0400 Body weight 78.13 kg Ting Marte LPN [facility]; [facility] Work Phone: 06-15-2022 10:25-0400 Diastolic blood pressure 90 mm[Hg] Ting Marte LPN [facility]; [facility] Work Phone: Comment on above: Patient Position: Sitting; Cuff Location : Left Arm; Cuff Size: Standard 06-15-2022 10:25-0400 Heart rate 104 /min Ting Marte [employer] [facility] Work Phone: Comment on above: Pattern: Regular 06-15-2022 10:25-0400 Respiratory rate 16 /min Tnig Marte LPN [facility]; [facility] Work Phone: Comment on above: Pattern: Unlabored 06-15-2022 10:25-0400 SaO2% (BldA) [Mass fraction] 95 % Ting Marte LPN [facility]; [facility] Work Phone: Comment on above: Room air 06-15-2022 10:25-0400 Systolic blood pressure 120 mm[Hg] Ting Marte LPN [facility]; [facility] Work Phone: Comment on above: Patient Position: Sitting; Cuff Location : Left Arm; Cuff Size: Standard 06-03-2022 19:00-0400 Diastolic blood pressure 90 mm[Hg] [facility] Work Phone: 06-03-2022 19:00-0400 Heart rate 77 /min [facility] Work Phone: 06-03-2022 19:00-0400 Respiratory rate 20 /min [facility] Work Phone: 06-03-2022 19:00-0400 SaO2% (BldA) [Mass fraction] 94 % [facility] Work Phone: 06-03-2022 19:00-0400 Systolic blood pressure 138 mm[Hg] [facility] Work Phone: 06-03-2022 15:23-0400 Body mass index (BMI) [Ratio] 24.3 kg/m2 [facility] Work Phone: 06-03-2022 15:23-0400 Body temperature 98.7 [degF] [facility] Work Phone: 06-03-2022 15:23-0400 Body weight 72.57 kg [facility] Work Phone: 05-31-2022 13:38-0400 Body height 172.72 cm Ting Marte LPN [facility] Work Phone: 05-31-2022 13:38-0400 Body mass index (BMI) [Ratio] 26.68 kg/m2 Ting Marte LPN [facility] Work Phone: 05-31-2022 13:38-0400 Body surface area Derived from formula 1.93 m2 Ting Marte LPN [facility]; [facility] Work Phone: 05-31-2022 13:38-0400 Body temperature 99.9 [degF] Ting Marte LPN [facility] Work Phone: 05-31-2022 13:38-0400 Body weight 79.61 kg Ting Marte LPN [facility]; [facility] Work Phone: 05-31-2022 13:38-0400 Diastolic blood pressure 98 mm[Hg] Ting Marte LPN [facility]; [facility] Work Phone: Comment on above: Patient Position: Sitting; Cuff Location : Left Arm; Cuff Size: Standard 05-31-2022 13:38-0400 Heart rate 98 /min Ting Marte LPN [facility]; [facility] Work Phone: Comment on above: Pattern: Regular 05-31-2022 13:38-0400 Respiratory rate 16 /min Ting Marte LPN [facility] Work Phone: Comment on above: Pattern: Unlabored 05-31-2022 13:38-0400 SaO2% (BldA) [Mass fraction] 99 % Ting Marte LPN [facility]; [facility] Work Phone: Comment on above: Room air 05-31-2022 13:38-0400 Systolic blood pressure 140 mm[Hg] Ting Marte LPN [facility]; [facility] Work Phone: Comment on above: Patient Position: Sitting; Cuff Location : Left Arm; Cuff Size: Standard 05-30-2022 17:44-0400 Body height 172.72 cm Yvette Hernandez MA [facility] Work Phone: 05-30-2022 17:44-0400 Body mass index (BMI) [Ratio] 26.68 kg/m2 Yvette Hernandez MA [facility]; [facility] Work Phone: 05-30-2022 17:44-0400 Body surface area Derived from formula 1.93 m2 Yvette Hernandez MA [facility]; [facility] Work Phone: 05-30-2022 17:44-0400 Body weight 79.61 kg Yvette Hernandez MA [facility]; [facility] Work Phone: 05-27-2022 16:49-0400 Diastolic blood pressure 104 mm[Hg] [facility] Work Phone: 05-27-2022 16:49-0400 Heart rate 72 /min [facility] Work Phone: 05-27-2022 16:49-0400 Respiratory rate 16 /min [facility] Work Phone: 05-27-2022 16:49-0400 SaO2% (BldA) [Mass fraction] 96 % [facility] Work Phone: 05-27-2022 16:49-0400 Systolic blood pressure 173 mm[Hg] [facility] Work Phone: 05-27-2022 14:41-0400 Body height 172.72 cm [facility] Work Phone: 05-27-2022 14:41-0400 Body mass index (BMI) [Ratio] 26.7 kg/m2 [facility] Work Phone: 05-27-2022 14:41-0400 Body temperature 98.2 [degF] [facility] Work Phone: 05-27-2022 14:41-0400 Body weight 79.83 kg [facility] Work Phone: 05-27-2022 08:27-0400 Body height 172.72 cm Keerthi Slarb [employer] [facility] Work Phone: 05-27-2022 08:27-0400 Body mass index (BMI) [Ratio] 26.68 kg/m2 Keerthi Slarb [employer] [facility]; [facility] Work Phone: 05-27-2022 08:27-0400 Body surface area Derived from formula 1.93 m2 Keerthi Slarb [employer] [facility]; [facility] Work Phone: 05-27-2022 08:27-0400 Body temperature 97.5 [degF] Keerthi Slarb [employer] [facility] Work Phone: 05-27-2022 08:27-0400 Body weight 79.61 kg Keerthi Slarb [employer] [facility] Work Phone: 05-27-2022 08:27-0400 Diastolic blood pressure 96 mm[Hg] Keerthi Slarb [employer] [facility]; [facility] Work Phone: Comment on above: Patient Position: Sitting; Cuff Location : Left Arm; Cuff Size: Standard 05-27-2022 08:27-0400 Heart rate 79 /min Keerthi Slarb [employer] [facility] Work Phone: Comment on above: Pattern: Regular 05-27-2022 08:27-0400 Respiratory rate 16 /min Keerthi Slarb [employer] [facility] Work Phone: Comment on above: Pattern: Unlabored 05-27-2022 08:27-0400 SaO2% (BldA) [Mass fraction] 99 % Keerthi Slarb [employer] [facility]; [facility] Work Phone: Comment on above: Room air 05-27-2022 08:27-0400 Systolic blood pressure 158 mm[Hg] Keerthi Naranjo CORA [facility]; [facility] Work Phone: Comment on above: Patient Position: Sitting; Cuff Location : Left Arm; Cuff Size: Standard 05-11-2022 13:44-0400 Body height 172.72 cm Ting Marte CORA [facility] Work Phone: 05-11-2022 13:44-0400 Body mass index (BMI) [Ratio] 26.68 kg/m2 Ting Marte CORA [facility]; [facility] Work Phone: 05-11-2022 13:44-0400 Body surface area Derived from formula 1.93 m2 Tingjuve Floresharoldo SHEPHERD [facility]; [facility] Work Phone: 05-11-2022 13:44-0400 Body temperature 97.9 [degF] Ting Marte COR[facility] Work Phone: 05-11-2022 13:44-0400 Body weight 79.61 kg Ting Marte COR[facility] Work Phone: 05-11-2022 13:44-0400 Diastolic blood pressure 100 mm[Hg] Ting Marte COR[facility]; [facility] Work Phone: Comment on above: Patient Position: Sitting; Cuff Location : Left Arm; Cuff Size: Standard 05-11-2022 13:44-0400 Heart rate 89 /min Ting Marte COR[facility]; [facility] Work Phone: Comment on above: Pattern: Regular 05-11-2022 13:44-0400 Respiratory rate 16 /min Ting Marte COR[facility]; [facility] Work Phone: Comment on above: Pattern: Unlabored 05-11-2022 13:44-0400 SaO2% (BldA) [Mass fraction] 98 % Ting Marte COR[facility]; [facility] Work Phone: Comment on above: Room air 05-11-2022 13:44-0400 Systolic blood pressure 130 mm[Hg] Ting Marte [employer] [facility]; [facility] Work Phone: Comment on above: Patient Position: Sitting; Cuff Location : Left Arm; Cuff Size: Standard 05-05-2022 12:59-0400 Heart rate 98 /min [facility] Work Phone: 05-05-2022 10:26-0400 Body height 172.72 cm [facility] Work Phone: 05-05-2022 10:26-0400 Body mass index (BMI) [Ratio] 26.8 kg/m2 [facility] Work Phone: 05-05-2022 10:26-0400 Body temperature 97.3 [degF] [facility] Work Phone: 05-05-2022 10:26-0400 Body weight 80.1 kg [facility] Work Phone: 05-05-2022 10:26-0400 Diastolic blood pressure 135 mm[Hg] [facility] Work Phone: 05-05-2022 10:26-0400 Respiratory rate 14 /min [facility] Work Phone: 05-05-2022 10:26-0400 SaO2% (BldA) [Mass fraction] 100 % [facility] Work Phone: 05-05-2022 10:26-0400 Systolic blood pressure 176 mm[Hg] [facility] Work Phone: 03-08-2022 14:12-0400 Body height 175.3 cm Awilda Garcia MD Work Phone: [facility] 03-08-2022 14:12-0400 Body temperature 97.7 [degF] Awilda Garcia MD Work Phone: [facility] 03-08-2022 14:12-0400 Body weight 78.56 kg Awilda Garcia MD Work Phone: [facility] 03-08-2022 14:12-0400 Diastolic blood pressure 82 mm[Hg] Awilda Garcia MD Work Phone: [facility] 03-08-2022 14:12-0400 Heart rate 88 /min Awilda Garcia MD Work Phone: [facility] 03-08-2022 14:12-0400 SaO2% (BldA) [Mass fraction] 95 % Awilda Garcia MD Work Phone: [facility] 03-08-2022 14:12-0400 Systolic blood pressure 130 mm[Hg] Awilda Garcia MD Work Phone: [facility] 01-28-2022 05:48-0400 Body height 172.72 cm [facility] Work Phone: 01-28-2022 05:48-0400 Body mass index (BMI) [Ratio] 27.1 kg/m2 [facility] Work Phone: 01-28-2022 05:48-0400 Body temperature 98.6 [degF] [facility] Work Phone: 01-28-2022 05:48-0400 Body weight 80.8 kg [facility] Work Phone: 01-28-2022 05:48-0400 Diastolic blood pressure 110 mm[Hg] [facility] Work Phone: 01-28-2022 05:48-0400 Heart rate 98 /min [facility] Work Phone: 01-28-2022 05:48-0400 Respiratory rate 18 /min [facility] Work Phone: 01-28-2022 05:48-0400 SaO2% (BldA) [Mass fraction] 97 % [facility] Work Phone: 01-28-2022 05:48-0400 Systolic blood pressure 175 mm[Hg] [facility] Work Phone: 01-26-2022 14:49-0400 Body height 172.72 cm Evelia Geronimo CMA [facility]; [facility] Work Phone: 01-26-2022 14:49-0400 Body mass index (BMI) [Ratio] 27.37 kg/m2 Evelia Geronimo CMA [facility]; [facility] Work Phone: 01-26-2022 14:49-0400 Body surface area Derived from formula 1.95 m2 Evelia Geronimo CMA [facility]; [facility] Work Phone: 01-26-2022 14:49-0400 Body temperature 97.3 [degF] Evelia Geronimo CMA [facility] Work Phone: Comment on above: Method: Infrared 01-26-2022 14:49-0400 Body weight 81.65 kg Evelia Geronimo CMA [facility]; [facility] Work Phone: 01-26-2022 14:49-0400 Diastolic blood pressure 82 mm[Hg] Evelia Geronimo CMA [facility]; [facility] Work Phone: Comment on above: Patient Position: Sitting; Cuff Location : Left Arm; Cuff Size: Standard 01-26-2022 14:49-0400 Heart rate 86 /min Evelia Geronimo [employer]OSING MANAGER [facility]; [facility] Work Phone: Comment on above: Pattern: Regular 01-26-2022 14:49-0400 Respiratory rate 16 /min Evelia Geronimo CMA [facility] Work Phone: Comment on above: Pattern: Unlabored 01-26-2022 14:49-0400 SaO2% (BldA) [Mass fraction] 99 % Evelia Geronimo CLOSING MANAGER [facility]; [facility] Work Phone: Comment on above: Room air 01-26-2022 14:49-0400 Systolic blood pressure 138 mm[Hg] Evelia Geronimo [facility] Work Phone: Comment on above: Patient Position: Sitting; Cuff Location : Left Arm; Cuff Size: Standard 12-17-2021 11:29-0400 Body mass index (BMI) [Ratio] 26.6 kg/m2 [facility] Work Phone: 12-17-2021 11:29-0400 Body temperature 98.9 [degF] [facility] Work Phone: 12-17-2021 11:29-0400 Body weight 79.37 kg [facility] Work Phone: 12-17-2021 11:29-0400 Diastolic blood pressure 108 mm[Hg] [facility] Work Phone: 12-17-2021 11:29-0400 Heart rate 100 /min [facility] Work Phone: 12-17-2021 11:29-0400 Respiratory rate 18 /min [facility] Work Phone: 12-17-2021 11:29-0400 SaO2% (BldA) [Mass fraction] 99 % [facility] Work Phone: 12-17-2021 11:29-0400 Systolic blood pressure 166 mm[Hg] [facility] Work Phone: 03-17-2021 08:00-0400 Body height 172.72 cm Carlos Rosales LPN [facility]; [facility] Work Phone: 03-17-2021 08:00-0400 Body mass index (BMI) [Ratio] 27.37 kg/m2 Carlos Rosales LPN [facility]; [facility] Work Phone: 03-17-2021 08:00-0400 Body surface area Derived from formula 1.95 m2 Carlos Rosales LPN [facility]; [facility] Work Phone: 03-17-2021 08:00-0400 Body temperature 97.8 [degF] Carlos Rosales LPN [facility]; [facility] Work Phone: Comment on above: Method: Infrared 03-17-2021 08:00-0400 Body weight 81.65 kg Carlos Rosales LPN [facility]; [facility] Work Phone: 03-17-2021 08:00-0400 Diastolic blood pressure 78 mm[Hg] Carlos Rosales LPN [facility]; [facility] Work Phone: Comment on above: Patient Position: Sitting; Cuff Location : Left Arm; Cuff Size: Standard 03-17-2021 08:00-0400 Heart rate 75 /min Carlos Rosales LPN [facility]; [facility] Work Phone: Comment on above: Pattern: Regular 03-17-2021 08:00-0400 Respiratory rate 16 /min Carlos Rosales LPN [facility]; [facility] Work Phone: Comment on above: Pattern: Unlabored 03-17-2021 08:00-0400 SaO2% (BldA) [Mass fraction] 99 % Carlos Rosales LPN [facility]; [facility] Work Phone: Comment on above: Room air 03-17-2021 08:00-0400 Systolic blood pressure 160 mm[Hg] Carlos Rosales LPN [facility]; [facility] Work Phone: Comment on above: Patient Position: Sitting; Cuff Location : Left Arm; Cuff Size: Standard 01-12-2021 08:48-0400 BMI (Body Mass Index) 27.83 kg/m2 Est[facility] Work Phone: 01-12-2021 08:48-0400 Body weight 83.02 kg Estela Alexandra [facility]; [facility] Work Phone: 01-12-2021 08:48-0400 BSA (Body Surface Area) 1.97 m2 Estela Alexandra [facility]; [facility] Work Phone: 01-12-2021 08:48-0400 Height 172.72 cm Estela Vega [facility]; [facility] Work Phone: 01-01-2021 09:32-0400 BMI (Body Mass Index) 27.83 kg/m2 Carlos Rosales LPN [facility]; [facility] Work Phone: 01-01-2021 09:32-0400 Body Temperature 97.8 [degF] Carlos Rosales LPN [facility]; [facility] Work Phone: Comment on above: Method: Infrared 01-01-2021 09:32-0400 Body weight 83.02 kg Carlos Rosales LPN [facility]; [facility] Work Phone: 01-01-2021 09:32-0400 BP Diastolic 90 mm[Hg] Carlos Rosales LPN [facility]; [facility] Work Phone: Comment on above: Patient Position: Sitting; Cuff Location : Left Arm; Cuff Size: Standard 01-01-2021 09:32-0400 BP Systolic 150 mm[Hg] Carlos Rosales LPN [facility]; [facility] Work Phone: Comment on above: Patient Position: Sitting; Cuff Location : Left Arm; Cuff Size: Standard 01-01-2021 09:32-0400 BSA (Body Surface Area) 1.97 m2 Carlos Rosales LPN [facility]; [facility] Work Phone: 01-01-2021 09:32-0400 Height 172.72 cm Carlos Rosales LPN [facility]; [facility] Work Phone: 01-01-2021 09:32-0400 Pulse (Heart Rate) 94 /min Carlos Rosales LPN [facility]; [facility] Work Phone: Comment on above: Pattern: Regular 01-01-2021 09:32-0400 Pulse Oximetry 97 % Estela Alexandra [facility]; [facility] Work Phone: Comment on above: Room air 01-01-2021 09:32-0400 Respiratory Rate 18 /min Carlos Rosales LPN [facility]; [facility] Work Phone: Comment on above: Pattern: Unlabored 01-01-2021 09:32-0400 SaO2% (BldA) [Mass fraction] 97 % Carlos Rosales LPN [facility]; [facility] Work Phone: Comment on above: Room air 09-07-2020 08:05-0500 BMI (Body Mass Index) 27.83 kg/m2 Carlos Rosales LPN [facility]; [facility] Work Phone: 09-07-2020 08:05-0500 Body weight 83.01 kg Carlos Rosales LPN [facility]; [facility] Work Phone: 09-07-2020 08:05-0500 BSA (Body Surface Area) 1.97 m2 Carlos Rosales LPN [facility]; [facility] Work Phone: 09-07-2020 08:05-0500 Height 172.72 cm Carlos Rosales LPN [facility]; [facility] Work Phone: 08-31-2020 09:16-0500 BMI (Body Mass Index) 27.83 kg/m2 Carlos Rosales LPN [facility] Work Phone: 08-31-2020 09:16-0500 Body weight 83.01 kg Carlos Rosales LPN [facility] Work Phone: 08-31-2020 09:16-0500 BSA (Body Surface Area) 1.97 m2 Carlos Rosales LPN [facility] Work Phone: 08-31-2020 09:16-0500 Height 172.72 cm Carlos Rosales LPN [facility] Work Phone: 07-31-2020 07:54-0400 BMI (Body Mass Index) 27.83 kg/m2 Carlos Rosales LPN [facility] Work Phone: 07-31-2020 07:54-0400 Body Temperature 97.6 [degF] Carlos Rosales LPN [facility] Work Phone: Comment on above: Method: Infrared 07-31-2020 07:54-0400 Body weight 83.01 kg Carlos Rosales LPN [facility] Work Phone: 07-31-2020 07:54-0400 BP Diastolic 80 mm[Hg] Carlos Rosales LPN [facility] Work Phone: Comment on above: Patient Position: Sitting; Cuff Location : Left Arm; Cuff Size: Standard 07-31-2020 07:54-0400 BP Systolic 132 mm[Hg] Carlos Rosales LPN [facility] Work Phone: Comment on above: Patient Position: Sitting; Cuff Location : Left Arm; Cuff Size: Standard 07-31-2020 07:54-0400 BSA (Body Surface Area) 1.97 m2 Carlos Rosales LPN [facility] Work Phone: 07-31-2020 07:54-0400 Height 172.72 cm Carlos Rosales LPN [facility] Work Phone: 07-31-2020 07:54-0400 Pulse (Heart Rate) 80 /min Carlos Rosales LPN [facility] Work Phone: Comment on above: Pattern: Regular 07-31-2020 07:54-0400 Pulse Oximetry 98 % Estela Alexandra [facility] Work Phone: Comment on above: Room air 07-31-2020 07:54-0400 Respiratory Rate 16 /min Carlos Rosales LPN [facility] Work Phone: Comment on above: Pattern: Unlabored 07-31-2020 07:54-0400 SaO2% (BldA) [Mass fraction] 98 % Carlos Rosales LPN [facility]; [facility] Work Phone: Comment on above: Room air 06-17-2020 12:55-0400 BMI (Body Mass Index) 27.68 kg/m2 Carlos Rosales LPN [facility] Work Phone: 06-17-2020 12:55-0400 Body Temperature 97.3 [degF] Carlos Rosales LPN [facility] Work Phone: Comment on above: Method: Infrared 06-17-2020 12:55-0400 Body weight 82.56 kg Carlos Rosales LPN [facility] Work Phone: 06-17-2020 12:55-0400 BP Diastolic 84 mm[Hg] Carlos Rosales LPN [facility] Work Phone: Comment on above: Patient Position: Sitting; Cuff Location : Left Arm; Cuff Size: Standard 06-17-2020 12:55-0400 BP Systolic 152 mm[Hg] Carlos Rosales LPN [facility] Work Phone: Comment on above: Patient Position: Sitting; Cuff Location : Left Arm; Cuff Size: Standard 06-17-2020 12:55-0400 BSA (Body Surface Area) 1.96 m2 Carlos Rosales LPN [facility] Work Phone: 06-17-2020 12:55-0400 Height 172.72 cm Carlos Rosales LPN [facility] Internal Medicine Work Phone: 06-17-2020 12:55-0400 Pulse (Heart Rate) 90 /min Carlos Rosales LPN Comprehensiv e Internal Medicine Work Phone: Comment on above: Pattern: Regular 06-17-2020 12:55-0400 Pulse Oximetry 98 % Estela Alexandra [facility] Internal [facility] Work Phone: Comment on above: Room air 06-17-2020 12:55-0400 Respiratory Rate 21 /min Carlos Rosales LPN [facility] Work Phone: Comment on above: Pattern: Unlabored 06-17-2020 12:55-0400 SaO2% (BldA) [Mass fraction] 98 % Carlos Rosales LPN [facility] Internal [facility]; [facility] Work Phone: Comment on above: Room air 06-09-2020 09:41-0400 BMI (Body Mass Index) 27.67 kg/m2 Keerthi Naranjo [facility] Internal Medicine Work Phone: 06-09-2020 09:41-0400 Body Temperature 97.5 [degF] Keerthi Naranjo [facility] Work Phone: 06-09-2020 09:41-0400 Body weight 82.56 kg Keerthi Naranjo [facility] Internal Medicine Work Phone: 06-09-2020 09:41-0400 BP Diastolic 90 mm[Hg] Keerthi Naranjo [facility] Internal Medicine Work Phone: Comment on above: Patient Position: Sitting; Cuff Location : Left Arm; Cuff Size: Standard 06-09-2020 09:41-0400 BP Systolic 142 mm[Hg] Keerthi Naranjo METAL HANDLER [facility] Work Phone: Comment on above: Patient Position: Sitting; Cuff Location : Left Arm; Cuff Size: Standard 06-09-2020 09:41-0400 BSA (Body Surface Area) 1.96 m2 Keerthi Naranjo METAL HANDLER [facility] Work Phone: 06-09-2020 09:41-0400 Height 172.72 cm Keerthi Naranjo METAL HANDLER [facility] Work Phone: 06-09-2020 09:41-0400 Pulse (Heart Rate) 89 /min Keerthi Naranjo METAL HANDLER Comprehensiv e Internal Medicine Work Phone: Comment on above: Pattern: Regular 06-09-2020 09:41-0400 Pulse Oximetry 90 % Estela Alexandra [facility] Work Phone: Comment on above: Room air 06-09-2020 09:41-0400 Respiratory Rate 16 /min Keerthi Naranjo METAL HANDLER [facility] Work Phone: Comment on above: Pattern: Unlabored 06-09-2020 09:41-0400 SaO2% (BldA) [Mass fraction] 90 % Keerthidavid Naranjo METAL HANDLER [facility]; [facility] Work Phone: Comment on above: Room air Encounters Encounter Date Encounter Type Care Provider Facility Start: 05-15-2025 End: 05-16-2025 Refill Awilda Garcia MD Work Phone: Internal Medicine [facility] Comment on above: Refill Request Start: 05-08-2025 End: 05-08-2025 ambulatory TRISTIAN CHAUDHARY Facility:[facility] Start: 04-30-2025 End: 04-30-2025 Office outpatient visit 25 minutes Awilda Garcia MD Work Phone: [facility] Medicine [facility] Comment on above: Essential hypertensi on (Primary Dx); Mixed hyperlipidemia; Hyperglycemia; Screen for colon cancer Start: 04-30-2025 End: 04-30-2025 ambulatory AWILDA GARCIA Facility:[facility] Start: 04-14-2025 End: 04-14-2025 Emergency department patient visit Shreya Emory QUARLES Work Phone: -Emergency Department Work Phone: Start: 04-08-2025 End: 04-08-2025 ambulatory Awilda Garcia MD Work Phone: Internal [facility] Start: 03-26-2025 End: 03-26-2025 Emergency department patient visit Shreya Emory JOEC Work Phone: -Emergency Department Work Phone: Start: 03-21-2025 End: 06-04-2025 Refill Awilda Garcia MD Work Phone: [place] Comment on above: Refill Request Start: 03-03-2025 End: 03-04-2025 Refill Awilda Garcia MD Work Phone: [place] Comment on above: Refill Request Start: 12-04-2024 End: 12-04-2024 Telephone encounter George Noriega MD Work Phone: Cardiology Start: 12-03-2024 End: 12-03-2024 ambulatory AWILDA GARCIA Facility:[facility] Start: 12-03-2024 End: 12-03-2024 Office outpatient visit 25 minutes George Noriega MD Work Phone: Cardiology Comment on above: Essential hypertensi on (Primary Dx); Mixed hyperlipidemia Start: 11-26-2024 End: 11-26-2024 ambulatory Awilda Garcia MD Work Phone: [facility] Start: 11-13-2024 End: 11-13-2024 ambulatory Jovana Sexton RN Clerical Stock Inspector Maria Luisa ramos Start: 11-11-2024 End: 11-11-2024 Emergency department patient visit [facility] [place] Start: 10-22-2024 End: 10-22-2024 ambulatory AWILDA GARCIA Facility:[facility] Start: 10-21-2024 End: 10-21-2024 ambulatory GEORGE NORIEGA Facility:[facility] Start: 10-18-2024 End: 10-18-2024 [facility] Start: 09-18-2024 End: 09-18-2024 Telephone encounter George Noriega MD Work Phone: Cardiology Comment on above: Procedure (Reschedul ing heart cath) Start: 09-03-2024 ambulatory [facility] Facility :[facility] Start: 08-21-2024 End: 08-21-2024 Refill Awilda Garcia MD Work Phone: [address] [place] [address] Comment on above: Refill Request; Erro neous encounter-disregard Start: 08-20-2024 End: 08-20-2024 ambulatory AWILDA FONTANAJOSSIE Facility:[facility] Start: 08-20-2024 End: 08-20-2024 Patient encounter procedure Awilda Garcia MD Work Phone: Internal Medicine [facility] Comment on above: Essential hypertensi on (Primary Dx); Encounter for immunization; Hyperlipidemia, unspecified hyperlipidemia type; 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) Start: 08-15-2024 End: 08-15-2024 Emergency department patient visit Shreya Gould Facility:[facility] Start: 07-22-2024 End: 07-22-2024 Telephone encounter George Noriega MD Work Phone: Cardiology Comment on above: Procedure (Heart cat h) Start: 07-18-2024 End: 07-18-2024 ambulatory AWILDA [facility] Facility[facility] Start: 07-18-2024 End: 07-18-2024 Office outpatient visit 40 minutes George Noriega MD Work Phone: Cardiology Comment on above: Coronary artery dise ase 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); Hyperlipidemia, unspecified hyperlipidemia type Start: 06-27-2024 End: 06-27-2024 Refill George Noriega MD Work Phone: Cardiology Comment on above: Refill Request Start: 06-06-2024 End: 06-07-2024 Refill George Noriega MD Work Phone: Cardiology Comment on above: Refill Request Start: 04-24-2024 Refill Awilda Joy Work Phone: [address] [place] [address] Comment on above: Refill Request Start: 12-22-2023 End: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 Expires: 03/05/2024 [facility] Work Phone: Comment on above: Expected: 12/05/2023, Expires: Start: 10-02-2023 Depression Assessment Depression Assessment [facility] Start: 09-23-2023 [facility] Start: 09-23-2023 [facility] Start: 06-26-2023 Provider Instructions for Treatment [facility]; [facility] Work Phone: Start: 06-19-2023 Procedure Education Eprescribed prescriptions (G8553) [facility]; [facility] Work Phone: Start: 06-19-2023 Provider Instructions for Treatment Follow up - Make appt after diagnostic tests [facility]; [facility] Work Phone: Start: 06-06-2023 End: 08-06-2023 Lipid 1996 panel - Serum or Plasma LIPID PANEL BASIC Lab Routine HLD (hyperlipidemia) Expected: 06/06/2023, Expires: 08/06/2023 [facility] Work Phone: Comment on above: Expected: 06/06/2023, Expires: 3 Start: 06-06-2023 End: 08-06-2023 PSA/PROSTSPECAG SCRN PSA/PROSTSPECAG SCRN Lab Routine Screening for prostate cancer Expected: 06/06/2023, Expires: 08/06/2023 [facility] Work Phone: Comment on above: Expected: 06/06/2023, Expires: 3 Start: 06-02-2023 Covid-19 Vaccine ( season) Covid-19 Vaccine ( season) [facility] Start: 06-02-2023 Influenza vaccination [facility] Start: 05-15-2023 End: 07-15-2023 IgE [Units/volume] in Serum or Plasma [facility] Work Phone: Comment on above: Expected: 05/15/2023, Expires: 3 Start: 05-04-2023 End: 05-02-2024 NITRIC OXIDE, EXHALED NITRIC OXIDE, EXHALED PFT Routine Persistent asthma with status asthmaticus, unspecified asthma severity Expected: 05/04/2023, Expires: 05/02/2024 [facility] Work Phone: Comment on above: Expected: 05/04/2023, Expires: 4 Start: 2023 RSV Vaccine (1 - 1-dose 60+ series) RSV Vaccine (1 - 1-dose 60+ series) [facility] Start: 2023 RSV Vaccine (1 - Risk 60-74 years 1-dose series) RSV Vaccine (1 - Risk 60-74 years 1-dose series) [facility] Start: 03-09-2023 Provider Instructions for Treatment [facility]; [facility] Work Phone: Start: 03-08-2023 Hepatitis B surface antibody level LDL CHOLESTEROL [facility] Start: 03-07-2023 Patient Education [facility]; [facility] Work Phone: Start: 03-07-2023 Procedure Education Eprescribed prescriptions (G8553) [facility]; [facility] Work Phone: Start: 03-07-2023 Provider Instructions for Treatment Follow up in 4 months [facility]; [facility] Work Phone: Start: 02-08-2023 [facility] Start: 02-08-2023 Assay of magnesium Magnesium (04733) [facility]; [facility] Work Phone: Start: 02-08-2023 Assay of phosphorus inorganic Phosphorus (90307) [facility]; [facility] Work Phone: Start: 02-08-2023 Assay of troponin quantitative Troponin I (65943) [facility]; [facility] Work Phone: Start: 02-08-2023 Blood count complete auto&auto difrntl wbc CBC, PLATELETS & AUT DIFF (86879) [facility]; [facility] Work Phone: Start: 02-08-2023 C-reactive protein C-REACTIVE PROTEIN (85527) [facility]; [facility] Work Phone: Start: 02-08-2023 Comprehensive metabolic panel METABOLIC PANEL, COMPREHENSIVE (98855) [facility]; [facility] Work Phone: Start: 02-08-2023 Fibrin dgradj products d-dimer quantitative D-Dimer (68151) [facility]; [facility] Work Phone: Start: 02-08-2023 Procedure Education Eprescribed prescriptions (G8553) [facility]; [facility] Work Phone: Start: 02-08-2023 Provider Instructions for Treatment Follow up [facility]; [facility] Work Phone: Start: 01-31-2023 End: 04-02-2023 Comprehensive metabolic 2000 panel - Serum or Plasma [facility] Work Phone: Comment on above: Expected: 01/31/2023, Expires: 3 Start: 01-31-2023 End: 04-02-2023 Thyrotropin [Units/volume] in Serum or Plasma [facility] Work Phone: Comment on above: Expected: 01/31/2023, Expires: 3 Start: 01-31-2023 End: 04-02-2023 Urinalysis complete panel - Urine [facility] Work Phone: Comment on above: Expected: 01/31/2023, Expires: 3 Start: 10-21-2022 Patient Education [facility]; [facility] Work Phone: Start: 10-21-2022 Procedure Education Eprescribed prescriptions (G8553) [facility]; [facility] Work Phone: Start: 10-21-2022 Provider Instructions for Treatment Follow up in 3 months [facility]; [facility] Work Phone: Start: 10-02-2022 DEPRESSION ASSESSMENT DEPRESSION ASSESSMENT [facility] Start: 09-28-2022 Procedure Education Eprescribed prescriptions (G8553) [facility]; [facility] Work Phone: Start: 09-19-2022 Patient Education Bursitis: olecranon bursitis [facility]; [facility] Work Phone: Start: 09-19-2022 Procedure Education Eprescribed prescriptions (G8553) [facility]; [facility] Work Phone: Start: 09-19-2022 Provider Instructions for Treatment Follow up if no improvement or if symptoms worsen [facility]; [facility] Work Phone: Start: 07-26-2022 Patient Education [facility]; [facility] Work Phone: Start: 07-26-2022 Provider Instructions for Treatment [facility]; [facility] Work Phone: Start: 07-13-2022 Procedure Education Eprescribed prescriptions (G8553) [facility]; [facility] Work Phone: Start: 07-13-2022 Provider Instructions for Treatment Follow up in 3 months [facility]; [facility] Work Phone: Start: 07-08-2022 [facility] Work Phone: Start: 07-04-2022 Procedure Education Eprescribed prescriptions (G8553) [facility]; [facility] Work Phone: Start: 06-22-2022 [facility] Work Phone: Start: 06-15-2022 Procedure Education Eprescribed prescriptions (G8553) [facility]; [facility] Work Phone: Start: 06-15-2022 Provider Instructions for Treatment Follow up in 4 months [facility]; [facility] Work Phone: Start: 06-10-2022 Basic metabolic panel calcium total METABOLIC PANEL, BASIC (32105) [facility]; [facility] Work Phone: Start: 06-10-2022 Natriuretic peptide BNTP (14053) [facility]; [facility] Work Phone: Start: 06-10-2022 Blood count complete auto&auto difrntl wbc CBC, PLATELETS & AUT DIFF (35014) [facility]; [facility] Work Phone: Start: 06-03-2022 [facility] Work Phone: Start: 06-02-2022 Influenza vaccination [facility] Start: 05-31-2022 Procedure Education Eprescribed prescriptions (G8553) [facility]; [facility] Work Phone: Start: 05-31-2022 Provider Instructions for Treatment Follow up in 4 weeks [facility]; [facility] Work Phone: Start: 05-31-2022 Lipid panel LIPID PANEL (66838) [facility]; [facility] Work Phone: Start: 05-27-2022 [facility] Work Phone: Start: 05-27-2022 Procedure Education Eprescribed prescriptions (G8553) [facility]; [facility] Work Phone: Start: 05-11-2022 Procedure Education Eprescribed prescriptions (G8553) [facility]; [facility] Work Phone: Start: 05-11-2022 Provider Instructions for Treatment Follow up in 2 weeks [facility]; [facility] Work Phone: Start: 03-08-2022 End: 05-08-2022 PSA/PROSTSPECAG SCRN [facility] Work Phone: Comment on above: Expected: 03/08/2022, Expires: 2 Start: 01-26-2022 Procedure Education Eprescribed prescriptions (G8553) [facility]; [facility] Work Phone: Start: 01-26-2022 Provider Instructions for Treatment [facility]; [facility] Work Phone: Start: 07-15-2021 COVID-19 VACCINE (3 - Booster for Pfizer series) COVID-19 VACCINE (3 - Booster for Pfizer series) [facility] Start: 04-09-2021 COVID-19 VACCINE (3 - Booster for Pfizer series) COVID-19 VACCINE (3 - Booster for Pfizer series) [facility] Start: 04-09-2021 COVID-19 VACCINE (3 - Pfizer series) COVID-19 VACCINE (3 - Pfizer series) [facility] Start: 03-17-2021 Procedure Education Eprescribed prescriptions (G8553) [facility]; [facility] Work Phone: Start: 03-17-2021 Provider Instructions for Treatment [facility]; [facility] Work Phone: Start: 01-12-2021 Procedure Education Eprescribed prescriptions (G8553) [facility]; [facility] Work Phone: Start: 01-12-2021 Provider Instructions for Treatment COVID SCREENING FORM [facility]; [facility] Work Phone: Start: 01-01-2021 Procedure Education Eprescribed prescriptions (G8553) [facility]; [facility] Work Phone: Start: 01-01-2021 Provider Instructions for Treatment [facility]; [facility] Work Phone: Start: 09-07-2020 Procedure Education Eprescribed prescriptions (G8553) [facility] Work Phone: Start: 09-07-2020 Provider Instructions for Treatment Follow up if no improvement or if symptoms worsen [facility] Work Phone: Start: 08-31-2020 Procedure Education Eprescribed prescriptions (G8553) [facility] Work Phone: Start: 08-31-2020 Provider Instructions for Treatment Follow up in 1 week for virtual apt [facility] Work Phone: Start: 07-31-2020 Procedure Education Eprescribed prescriptions (G8553) [facility] Work Phone: Start: 07-31-2020 Provider Instructions for Treatment Follow up in 1 month [facility] Work Phone: Start: 06-17-2020 Procedure Education Eprescribed prescriptions (G8553) [facility] Work Phone: Start: 06-17-2020 Provider Instructions for Treatment [facility] Work Phone: Start: 06-09-2020 Procedure Education Eprescribed prescriptions (G8553) [facility] Work Phone: Start: 06-09-2020 Provider Instructions for Treatment [facility] Work Phone: Start: 06-09-2020 TSH Qn TSH (THYROID STIMULATING HORMONE) (35353) [facility] Work Phone: Start: 06-09-2020 Assay of prostate specific antigen total PSA (PROSTATE SPECIFIC ANTIGEN) (V76.44) [facility] Work Phone: Start: 06-09-2020 Blood count complete auto&auto difrntl wbc CBC, PLATELETS & AUT DIFF (98753) [facility] Work Phone: Start: 06-09-2020 Comprehensive metabolic panel METABOLIC PANEL, COMPREHENSIVE (26617) [facility] Work Phone: Start: 06-09-2020 Assay of prostate specific antigen total PSA (PROSTATE SPECIFIC ANTIGEN) (V76.44) [facility] Work Phone: Start: 06-09-2020 Blood count complete auto&auto difrntl wbc CBC, Platelets & Auto Diff (46407) [facility] Work Phone: Start: 06-09-2020 Comprehensive metabolic panel Metabolic Panel, Comprehensive (55594) [facility] Work Phone: Start: 06-09-2020 Assay of thyroid stimulating hormone tsh TSH (36358) [facility] Work Phone: Start: 06-09-2020 TSH Qn TSH (90344) [facility] Work Phone: Start: 06-09-2020 Urine albumin quantitative MICROALBUMIN: CREATININE RATIO (79022) AND (80590) [facility] Work Phone: Start: 06-09-2020 Culture bct isol&prsmptv id isolate ea urine URINE ARTURO CULTURE-IDENTIFICATN (48239) [facility] Work Phone: Start: 2018 PROSTATE CANCER SCREENING DISCUSSION PROSTATE CANCER SCREENING DISCUSSION [facility] Start: 2013 SHINGRIX VACCINE (1 of 2) SHINGRIX VACCINE (1 of 2) [facility] Start: 2008 COLOGUARD (FIT-DNA) COLOGUARD (FIT-DNA) [facility] Start: 2008 Colonoscopy COLONOSCOPY [facility] Start: 2008 COLORECTAL CANCER SCREENING COLORECTAL CANCER SCREENING [facility] Start: [address] COLONOGRAPHY [facility] Start: 2008 FECAL OCCULT BLOOD FECAL OCCULT BLOOD [facility] Start: 2008 Screening for malignant neoplasm of colon [facility] Start: 2008 SIGMOIDOSCOPY SIGMOIDOSCOPY [facility] Start: 1981 BP CONTROLLED (<130/80) BP CONTROLLED (<130/80) [facility] Start: 1981 Depression Screening Depression Screening [facility] Start: 1981 HEPATITIS C SCREENING HEPATITIS C SCREENING [facility] Start: 1981 Hepatitis C screening Hepatitis C Screening [facility] Start: 1981 HIV SCREENING HIV SCREENING [facility] Start: 1981 HIV screening HIV Screening [facility] Start: 1981 SPIROMETRY SPIROMETRY [facility] Start: 1975 Adult depression screening assessment DEPRESSION SCREENING [facility] Start: 1969 PNEUMOCOCCAL (1 - PCV) PNEUMOCOCCAL (1 - PCV) [facility] ic Start: 1969 Pneumococcal vaccination Pneumococcal Vaccine (1 - PCV) [facility] Bilirubin measuremen t, urine [facility] COLOGUARD COLOGUARD Lab Ro utine Screen for colon cancer Ordered: 03/08/2022 [facility] Work Phone: Comment on above: Ordered: 03/08/2022 COLOGUARD COLOGUARD Lab Ro utine Screen for colon cancer Ordered: 12/22/2023 [facility] Work Phone: Comment on above: Ordered: 12/22/2023 End: 02-01-2024 ECG COMPLETE ECG COMPLETE ECG Routine Other chest pain 1 Occurrences starting 01/31/2023 until 02/01/2024 [facility] Work Phone: Comment on above: 1 Occurrences starting 01/31/2023 until 02/01/2024 ECG COMPLETE ECG COMPLETE ECG 01/31/2023 2:31 PM EDT [facility] ECG COMPLETE [facility] Work Phone: Comment on above: Ordered: 07/18/2024 End: 04-14-2024 EGD DIAGNOSTIC EGD DIAGNOSTIC Endoscopy Routine Esophageal dysphagia Gastroesophageal reflux disease, unspecified whether esophagitis present Hiatal hernia 1 Occurrences starting 04/14/2023 until 04/14/2024 [facility] Work Phone: Comment on above: 1 Occurrences starting 04/14/2023 until 04/14/2024 EPIL EEG ROUTINE EPIL EEG ROUTIN E NEUROLOGY Routine Syncope, unspecified syncope type Convulsive syncope Ordered: 11/03/2023 [facility] Work Phone: Comment on above: Ordered: 11/03/2023 Hemoglobin [Presence ] in Urine [facility] End: 06-13-2024 LUNG DIFFUSION CAPACITY (DLCO) LUNG DIFFUSION CAPACITY (DLCO) PFT Routine Hypoxemia Restrictive pattern present on pulmonary function testing Atelectasis Shortness of breath 1 Occurrences starting 05/15/2023 until 06/13/2024 [facility] Work Phone: Comment on above: 1 Occurrences starting 05/15/2023 until 06/13/2024 End: 06-13-2024 LUNG VOLUMES LUNG VOLUMES PFT Routine Hypoxemia Restrictive pattern present on pulmonary function testing Atelectasis Shortness of breath 1 Occurrences starting 05/15/2023 until 06/13/2024 [facility] Work Phone: Comment on above: 1 Occurrences starting 05/15/2023 until 06/13/2024 Measurement of keton es in urine using dipstick [facility] Microscopic urinalysis [facility] Patient Education [facility] Work Phone: Patient referral [facility] Work Phone: pH of Urine [facility] PT PLAN OF CARE CERTIFICATION PT PLAN OF CARE CERTIFICATION Procedures Routine Neck pain Ordered: 01/05/2023 [facility] Work Phone: Comment on above: Ordered: 01/05/2023 PT PLAN OF CARE CERTIFICATION PT PLAN OF CARE CERTIFICATION Procedures Routine Neck pain Chronic left shoulder pain Ordered: 03/01/2023 [facility] Work Phone: Comment on above: Ordered: 03/01/2023 End: 01-19-2024 Radex spine cervical 4 or 5 views XR CERV OTHER 4V AP/LAT/OBL Radiology Routine Neck pain 1 Occurrences starting 12/20/2022 until 01/19/2024 [facility] Work Phone: Comment on above: 1 Occurrences starting 12/20/2022 until 01/19/2024 Radex spine cervical 4 or 5 views XR CERV OTHER 4V AP/LAT/OBL Radiology Routine Neck pain 12/20/2022 2:35 PM EDT [facility] Work Phone: Specific gravity of Urine [facility] End: 05-02-2024 SPIROMETRY - BASELINE AND POST DILATOR SPIROMETRY - BASELINE AND POST DILATOR PFT Routine Persistent asthma with status asthmaticus, unspecified asthma severity 1 Occurrences starting 04/03/2023 until 05/02/2024 [facility] Work Phone: Comment on above: 1 Occurrences starting 04/03/2023 until 05/02/2024 End: 06-13-2024 SPIROMETRY WITH DILATOR IF OBSTRUCTED SPIROMETRY WITH DILATOR IF OBSTRUCTED PFT Routine Hypoxemia Restrictive pattern present on pulmonary function testing Atelectasis Shortness of breath 1 Occurrences starting 05/15/2023 until 06/13/2024 [facility] Work Phone: Comment on above: 1 Occurrences starting 05/15/2023 until 06/13/2024 End: 09-26-2024 SPIROMETRY WITH DILATOR IF OBSTRUCTED SPIROMETRY WITH DILATOR IF OBSTRUCTED PFT Routine Shortness of breath 1 Occurrences starting 08/30/2023 until 09/26/2024 [facility] Work Phone: Comment on above: 1 Occurrences starting 08/30/2023 until 09/26/2024 SPIROMETRY WITH DILATOR IF OBSTRUCTED SPIROMETRY WITH DILATOR IF OBSTRUCTED PFT Routine Shortness of breath 11/06/2023 2:52 PM EST [facility] Work Phone: Urinalysis, blood, qualitative [facility] Urine culture [facility] Urine dipstick for glucose [facility] Urine dipstick for leukocyte esterase [facility] Urine dipstick for nitrite [facility] Urine dipstick for protein [facility] Urine examination [facility] Urine microscopy: epithelial cells [facility] Urine Microscopy: white cells [facility] Urobilinogen [Presence] in Urine [facility] US Carotid arteries [facility] Work Phone: [facility] Work Phone: [facility] Work Phone: [facility] Work Phone: [facility] Work Phone: [facility] Work Phone: [facility] Work Phone: [facility] Work Phone: [facility] Work Phone: [facility]; [facility] Work Phone[facility] Work Phone: [facility]; [facility] Work Phone: [facility] nternal Medicine; [facility] Work Phone: [facility] Immunizations Immunization Date Immunization Notes Care Provider Fa [facility] 08-20-2024 COVID-19 vaccine, ag e 12+ yr (SIRS-Lab-BIONTABS Medical [facility]) Awilda Garcia MD Work Phone: [facility] 08-20-2024 influenza, seasonal, injectable Awilda Garcia MD Work Phone: [facility] 08-20-2024 influenza virus vacc ine, unspecified formulation Awilda Garcia MD Work Phone: [facility] 08-07-2023 pneumococcal (PCV20) vaccine, 20 valent (PREVNAR 20) Awilda Garcia MD Work Phone: [facility] 06-23-2023 influenza, injectabl e, quadrivalent, contains preservative Awilda Garcia MD Work Phone: [facility] 06-23-2023 influenza virus vacc ine, unspecified formulation Awilda Garcia MD Work Phone: [facility] 02-12-2021 COVID-19 vaccine, ag e 12+ yr (PFIZER-BIONTECH - PURPLE TOP) Awilda Garcia MD Work Phone: [facility] 01-22-2021 COVID-19 vaccine, ag e 12+ yr (PFIZER-BIONTECH - PURPLE TOP) Awilda Garcia MD Work Phone: [facility] 06-12-2018 tetanus toxoid, redu nunu diphtheria toxoid, and acellular pertussis vaccine, adsorbed [facility] Payers Date Payer Category Payer Self-pay [id number] 2019 Medicaid [id number] 2019 Medicaid [id number] 2018 Medicare (Managed Care) PAT [employer] HMO Member Subscriber Plan / Payer (Effective 2018-Present) Name: Cash Michel Relation to Subscriber: Self Name: Cash Michel Payer ID: [id number] (NAIC) Group ID: [id number] Type: HMO Address: [address] [place] [id number] 2018 Unknown 2018 Unknown PAT GARCIA CR[employer] S [employer] BLUE [employer]IELD ANTHMONISHA MEDIBLUE O [id number] 2018-Present [phone] [address] [place] [address] [facility] [id number] 2018 Medicare [id number] 1965 Unknown [id number] Medicare [id number] Medicare [id number] Unknown [id number] Unknown [id number] Unknown [id number] Unknown [id number] Unknown [id number] Social History Date Type Detail Facility Alcohol Use: Alcohol Use: [facility] Work Phone: Tobacco Use: Tobacco Use: [facility] Work Phone: Alcohol Use: Alcohol Use: [facility] Work Phone: Tobacco Use: Tobacco Use: [facility] Work Phone: Start: 01-28-2022 End: 09-23-2023 Tobacco smoking status MAIS Unknown if ever smoked [facility] Start: 10-31-2019 Alone [facility] Start: 1965 Sex Assigned At Male [facility] Start: 04-16-2015 End: 12-20-2022 Tobacco smoking status NHIS Never smoked tobacco [facility] Work Phone: Start: 04-16-2015 End: 12-20-2022 Tobacco use and exposure Smokeless tobacco non-user [facility] Work Phone: Start: 03-08-2022 End: 10-18-2024 Alcohol intake Lifetime non-drinker (finding) [facility] Start: 03-20-2021 History SDOH Alcohol Frequency 1 [facility] Start: 1965 Sex Assigned At Not on file [facility] Start: 02-26-2022 End: 03-08-2022 Exposure to SARS-CoV-2 (event) Not sure [facility] Start: 04-10-2023 End: 05-08-2025 History of Social function [facility] Work Phone: Start: 04-10-2023 End: 05-08-2025 Tobacco use panel [facility] Work Phone: Start: 09-02-2012 National Score (1-100), lower number is lower risk 65 [facility] Work Phone: Goals Date Patient Goal Desired Activity /State Personal health goal Functional Status Date Assessment Result Facility 04-16-2015 Are you deaf, or do you have serious difficulty hearing No 04/16/2015 6:24 PM EDT Mishel Vega MA No [facility] 04-16-2015 Are you blind, or do you have serious difficulty seeing, even when wearing glasses No 04/16/2015 6:24 PM EDT Mishel Vega MA No [facility] 04-16-2015 Do you have serious difficulty walking or climbing stairs No 04/16/2015 6:24 PM EDT Mishel Vega MA No [facility] 04-16-2015 Do you have difficul ty dressing or bathing No 04/16/2015 6:24 PM EDT Mishel Vega MA No [facility] 04-16-2015 Because of a physica l, mental, or emotional condition, do you have difficulty doing errands alone such as visiting a physician's office or shopping No 04/16/2015 6:24 PM EDT Mishel Vega MA [facility] Mental Status Date Assessment Result Facility 04-14-2025 Cognitive function Voice/Name [facility] Work Phone: 03-26-2025 Cognitive function Voice/Name [facility] Work Phone: 09-23-2023 Cognitive function Voice/Name [facility] Work Phone: 06-16-2023 Cognitive function Voice/Name [facility] Work Phone: 02-08-2023 Cognitive function Level Of Cons ciousness Awake;Alert;Appropriate [facility] Work Phone: 07-08-2022 Cognitive function Level Of Cons ciousness Awake;Alert;Appropriate;Fol lows Commands [facility] Work Phone: 06-22-2022 Cognitive function Voice/Name [facility] Work Phone: 06-03-2022 Cognitive function Awake;Alert;A ppropriate;Fol lows Commands [facility] Work Phone: 05-27-2022 Cognitive function Awake;Alert;A ppropriate;Fol lows Commands [facility] Work Phone: 01-28-2022 Cognitive function Level Of Cons ciousness Awake;Alert;Appropriate;Fol lows Commands [facility] Work Phone: 12-17-2021 Cognitive function Level Of Cons ciousness Awake;Alert;Appropriate;Fol lows Commands [facility] Work Phone: 04-16-2015 Because of a physica l, mental, or emotional condition, do you have serious difficulty concentrating, remembering, or making decisions No 04/16/2015 6:24 PM EDT Mishel Vega MA No [facility] Clinical Notes 03-08-2022 to 05-15-2025 Telephone Encounter - Kailee Kaiser - 05/15/2025 11:20 AM EDTTelephone Encounter - Kailee Kaiser - 05/15/2025 11:20 AM EDTAwilda Garcia MD - 04/30/2025 2:11 PM EDT Note Date & Type Note Facility 05-15-2025 Telephone encounter Note Prescription Refill Information The patient has been identified by name and date of : Yes Caregiver verified no other encounters exist for this prescription request: Yes Caregiver confirmed with patient/requestor that no other refills are due, in the near future, with this provider at this time: Yes The last office visit in the department: 04/30/25 Does the patient have a future office visit with this provider/department: Yes Requested Prescriptions Pending Prescriptions Disp Refills lisinopril-hydroCHLOROthiazide (ZESTORETIC) 20-12.5 mg per tablet 30 tablet 0 Sig: Take 1 tablet by mouth once daily. Kailee Kaiser May 15, 2025 11:20 AM [facility] 05-15-2025 Miscellaneous Notes Prescription Refill Information The patient has been identified by name and date of : Yes Caregiver verified no other encounters exist for this prescription request: Yes Caregiver confirmed with patient/requestor that no other refills are due, in the near future, with this provider at this time: Yes The last office visit in the department: 04/30/25 Does the patient have a future office visit with this provider/department: Yes Requested Prescriptions Pending Prescriptions Disp Refills lisinopril-hydroCHLOROthiazide (ZESTORETIC) 20-12.5 mg per tablet 30 tablet 0 Sig: Take 1 tablet by mouth once daily. Kailee Kaiser May 15, 2025 11:20 AM documented in this encounter [facility] 05-08-2025 Note HNO ID: [id number] Author: TRISTIAN CHAUDHARY MD Service: ? Author Type: Physician Type: Progress Notes Filed: 05/08/2025 16:16 Note Text: Subjective Cash Michel is a 60 year old male. Medication discussion HPI Medication Review: - Uncertain about continuing two medications prescribed by GI - Taking two sucralfate 1g tablets BID, unaware they were the same medication. - Taking a medication before meals to aid food passage through a rupture. - Current medications include: - Aspirin 81 mg daily. - Lisinopril-hydrochlorothiazide 20 mg/12.5 mg daily. - Amlodipine 10 mg daily. - Rosuvastatin 20 mg daily. - Famotidine 40 mg daily. Abdominal Pain: - Pain from umbilicus to neck, associated with a rupture. - Severe pain at times, believes it may contribute to constipation. - Advised by [facility] in [place] to have gallbladder removed; has not scheduled surgery yet. Chronic Constipation: - Lifelong history of constipation. - Delays addressing constipation, sometimes waiting up to a month before taking action. - Taking Miralax TID as recommended by PCP Colonoscopy: - Underwent colonoscopy due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 technique, hypoinflation, and significant patient motion on both views. A prominent hiatal hernia is seen. Areas of bibasilar atelectasis are noted, rxctd-baamdey-qkcx-left; cannot entirely exclude the presence of pneumonitis. No evidence of pulmonary edema. No pleural effusion or pneumothorax is seen. The cardiomediastinal silhouette is stable, without evidence of cardiomegaly. Reading Location: [facility]-[address] 03/26/25 09:17 IMPRESSION: CHRONIC CHANGES. NO ACUTE FINDINGS. Reading Location: [id number] Discharge Plan Triage Chief Complaint: Dizziness ED Provider: Gavino Jeffery Dx/Rx/DC Orders Clinical Impression: Lightheadedness, Generalized weakness Prescriptions: No Action albuterol sulfate 90 mcg/actuation HFA aerosol inhaler 2 puff inhalation Q4H PRN (Reason: SOB) amlodipine 10 mg tablet 10 mg PO DAILY Qty: 90 3RF lisinopril-hydrochlorothiazide 20-12.5 mg tablet 1 tab PO DAILY aspirin 81 mg tablet,delayed release (DR/EC) 81 mg PO DAILY rosuvastatin 20 mg tablet 20 mg PO QHS sucralfate 1 gram tablet 1 g PO BID famotidine 40 mg tablet 40 mg PO QPM Primary Care Provider: Shreya Cat Referrals: Shreya Cat NP-C [Primary Care Provider] - Activity Restrictions/Additional Instructions: Follow-up with your doctor in the outpatient setting. Ensure that you are drinking plenty of fluids. Return with worsening symptoms or other concerns. Print Language: Welsh Disposition Disposition: Home, Self Care What to do if you have Problems For any increased pain, shortness of breath, bleeding, nausea or vomiting, chestpain, or any unexpected problems, contact your Primary Care Provider. Call [facility] ([phone]) or report to the closest Emergency Room. Call 911 if necessary. 03/26/25 1411 <Electronically signed by Gavino Jeffery DO> Cosigner Signature (if applicable): CC: ROBINA Cat ~ Signed [facility] Work Phone: [phone]) 285-200206-25-2025 Radiology Diagnostic study note [facility] Imaging Services [address] [place] [address] [id number] Brain/Head without Contrast MR#: [id number] Acct: [id number] Name: CASH MICHEL Rep #: [id number] : 1965 M 59 From: To Kramer MD PCP: ROBINA Anglin Status: REG E R Study:Brain/Head without Contrast Date of Exa m: 03/26/25 Exam# [id number] Ordering Dr: Mariana Jeffery DO PROCEDURE: BRAIN/HEAD WITHOUT CONTRAST 03/26/2025 REASON FOR EXAM: LIGHTHEADED, HEADACHES, WEAK TECHNIQUE: BRAIN/HEAD WITHOUT CONTRAST Coronal and Sagittal reconstruction series were provided. One or more dose reduction techniques were used (e.g., Automated exposure control, adjustment of the mA and/or kV according to patient size, use of iterative reconstruction technique. RADIATION DOSE SUMMARY: CTDlvol: 44.99 mGy DLP: A 12.98 mGycm COMPARISON: Prior study dated August 15, 2024. FINDINGS: Brain: Low density in the periventricular white matter suggests mild chronic small vessel ischemic changes. Once again, focal encephalomalacia is seen in the right frontal lobe. Calcification of the cavernous portions of the internal carotid arteries bilaterally. No acute abnormality is seen. CSF Spaces: Mild generalized cerebral atrophy Sinuses/Mastoids: Clear at visualized levels Bones: Unremarkable CT/Brain/Head without Contrast IMPRESSION: CHRONIC CHANGES. NO ACUTE FINDINGS. Reading Location: [id number] CC: ROBINA Cat; Dr. Gavino Jeffery DO ~ Landscape Gardener: Signed [facility]06-25-2025 Radiology Diagnostic study note [facility] Imaging Services [address] [place], [place] [id number] Chest PA and Lateral MR#: [id number] Acct: [id number] Name: CASH MICHEL Rep #: [id number] : 1965 M 59 From: Faustino Mendoza MD PCP: ROBINA Anglin Status: REG E R Study:Chest PA and Lateral Date of Exam: 03/26/25 Exam# [id number] Ordering Dr: Mariana Jeffery DO PROCEDURE: CHEST PA AND LATERAL 03/26/2025 REASON FOR EXAM: CHEST PAIN TECHNIQUE: CHEST PA AND LATERAL COMPARISON: Chest x-ray 02/25/2024. RAD/Chest PA and Lateral IMPRESSION: Examination limited by AP portable technique, hypoinflation, and significant patient motion on bothviews. A prominent hiatal hernia is seen. Areas of bibasilar atelectasis are noted, [id number]; cannot entirely exclude the presence of pneumonitis. No evidence of pulmonary edema. No pleural effusion or pneumothorax is seen. The cardiomediastinal silhouette is stable, without evidence of cardiomegaly. Reading Location: [facility] CC: ROBINA Cat; Dr. Gavino Jeffery DO ~ Landscape Gardener: Signed [facility]06-23-2025 Telephone encounter Note* Telephone Encounter - Usman Gomez - 03/24/2025 2:16 PM EDT Spot to pt, he is scheduled for April 22 [facility]06-23-2025 Miscellaneous Notes* Telephone Encounter - Usman Gomez - 03/24/2025 2:16 PM EDT Spot to pt, he is scheduled for April 22 * Telephone Encounter - Prashanth Luna APRN.CNP - 03/24/2025 9:07 AM EDT Will send 30-day supply, however, patient was a no-show to last appointment and is due for visit. Please call to schedule with Dr. Garcia. Prashanth Luna APRN.CNP * Telephone Encounter - Noelle Mejia - 03/21/2025 1:30 PM EDT Prescription Refill Information The patient has been identified by name and date of : Yes Caregiver verified no other encounters exist for this prescription request: Yes Caregiver confirmed with patient/requestor that no other refills are due, in the near future, with this provider at this time: Yes The last office visit in the department: 11/26/2024 Does the patient have a future office visit with this provider/department: No Requested Prescriptions Pending Prescriptions Disp Refills metoprolol succinate ER (TOPROL XL) 25 mg 24 hr tablet 45 tablet 3 Sig: Take 0.5 tablets by mouth once daily. lisinopril-hydroCHLOROthiazide (ZESTORETIC) 20-12.5 mg per tablet 90 tablet 2 Sig: Take 1 tablet by mouth once daily. Noelle Mejia March 21, 2025 1:30 PM documented in this encounterK[facility] Telephone encounter Note * Telephone Encounter - Prashanth Luna APRN.CNP - 03/24/2025 9:07 AM EDT Will send 30-day supply, however, patient was a no-show to last appointment and is due for visit. Please call to schedule with Dr. Garcia. Prashanth Luna APRN.CNP [facility]06-20-2025 Telephone encounter Note* Telephone Encounter - Noelle Mejia - 03/21/2025 1:30 PM EDT Prescription Refill Information The patient has been identified by name and date of : Yes Caregiver verified no other encounters exist for this prescription request: Yes Caregiver confirmed with patient/requestor that no other refills are due, in the near future, with this provider at this time: Yes The last office visit in the department: 11/26/2024 Does the patient have a future office visit with this provider/department: No Requested Prescriptions Pending Prescriptions Disp Refills metoprolol succinate ER (TOPROL XL) 25 mg 24 hr tablet 45 tablet 3 Sig: Take 0.5 tablets by mouth once daily. lisinopril-hydroCHLOROthiazide (ZESTORETIC) 20-12.5 mg per tablet 90 tablet 2 Sig: Take 1 tablet by mouth once daily. Noelle Mejia March 21, 2025 1:30 PM [facility]06-20-2025 Telephone encounter Note* Telephone Encounter - Noelle Mejia - 03/21/2025 1:29 PM EDT Prescription Refill Information The patient has been identified by name and date of : Yes Caregiver verified no other encounters exist for this prescription request: Yes Caregiver confirmed with patient/requestor that no other refills are due, in the near future, with this provider at this time: Yes The last office visit in the department: 12/03/2024 Does the patient have a future office visit with this provider/department: No Requested Prescriptions Pending Prescriptions Disp Refills amLODIPine (NORVASC) 10 mg tablet 90 tablet 3 Sig: Take 1 tablet by mouth once daily. Noelle Mejia March 21, 2025 1:29 PM [facility]06-20-2025 Miscellaneous Notes* Telephone Encounter - Noelle Mejia - 03/21/2025 1:29 PM EDT Prescription Refill Information The patient has been identified by name and date of : Yes Caregiver verified no other encounters exist for this prescription request: Yes Caregiver confirmed with patient/requestor that no other refills are due, in the near future, with this provider at this time: Yes The last office visit in the department: 12/03/2024 Does the patient have a future office visit with this provider/department: No Requested Prescriptions Pending Prescriptions Disp Refills amLODIPine (NORVASC) 10 mg tablet 90 tablet 3 Sig: Take 1 tablet by mouth once daily. Noelle Mejia March 21, 2025 1:29 PM documented in this encounterK[facility]06-[facility] Telephone encounter Note * Telephone Encounter - Chrissy Brunson - 03/03/2025 4:28 PM EDT Patient calling to check the status of this. Patient stated he loss his. Please advise. [facility]06-02-2025 Miscellaneous Notes* Telephone Encounter - Chrissy Brunson - 03/03/2025 4:28 PM EDT Patient calling to check the status of this. Patient stated he loss his. Please advise. * Telephone Encounter - Misty Rivas - 03/03/2025 2:02 PM EDT Prescription Refill Information The patient has been identified by name and date of : Yes Caregiver verified no other encounters exist for this prescription request: Yes Caregiver confirmed with patient/requestor that no other refills are due, in the near future, with this provider at this time: Yes The last office visit in the department: 08/20/24 Does the patient have a future office visit with this provider/department: Yes Requested Prescriptions Pending Prescriptions Disp Refills albuterol HFA (VENTOLIN HFA) 90 mcg/actuation inhaler 1 each 1 Sig: Inhale 2 puffs as instructed every 4 hours as needed for wheezing/shortness of breath. Misty Rivas March 03, 2025 2:02 PM documented in this encounterK[facility]06-[facility] Telephone encounter Note * Telephone Encounter - Misty Rivas - 03/03/2025 2:02 PM EDT Prescription Refill Information The patient has been identified by name and date of : Yes Caregiver verified no other encounters exist for this prescription request: Yes Caregiver confirmed with patient/requestor that no other refills are due, in the near future, with this provider at this time: Yes The last office visit in the department: 08/20/24 Does the patient have a future office visit with this provider/department: Yes Requested Prescriptions Pending Prescriptions Disp Refills albuterol HFA (VENTOLIN HFA) 90 mcg/actuation inhaler 1 each 1 Sig: Inhale 2 puffs as instructed every 4 hours as needed for wheezing/shortness of breath. Misty Rivas March 03, 2025 2:02 PM [facility]03-17-2025 NoteHNO ID: [id number] Author: GEORGE NORIEGA MD Service: ? Author Type: Physician Type: Progress Notes Filed: 12/16/2024 09:39 Note Text: Heart, Vascular and Thoracic [place] [facility] De [facility] Bower Department of Cardiovascular Medicine Patient is scheduled for cardiac cath on 10/22/2024, wishes not to be seen today [facility]03-05-2025 Telephone encounter Note* Telephone Encounter - Kate Márquez RN - 12/04/2024 4:04 PM EST Attempted to call pt. Phone went to [employer] however wouldn't accept a voice message. Will send mychart. Noriega 12/03/24 IMPRESSION: Mr. Michel is a 59 year old male who initially presented with typical chest pain most likely stable coronary artery disease in setting of hypertension, which had improved with control of his hypertension on 2 antianginals, but now with recurrence despite antianginal therapy. Cardiac catheterization did not reveal any significant CAD. 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 Monitor for bradycardia, lightheadedness, dizziness, hypotension, hyperglycemia - Continue with amlodipine 10 mg p.o. daily as second antianginal and goal blood pressure less [id number] - Continue with hydrochlorothiazide/lisinopril combo pill as prescribed goal blood pressure less than 130/80 - Continue aspirin 81 mg p.o. daily and high intensity statin. Patient instructed to monitor for myalgias, right upper quadrant pain, urinary discoloration and bleeding diatheses [facility]03-05-2025 Miscellaneous Notes* Telephone Encounter - Kate Márquez RN - 12/04/2024 4:04 PM EST Attempted to call pt. Phone went to [employer] however wouldn't accept a voice message. Will send mychart. Noriega 12/03/24 IMPRESSION: Mr. Michel is a 59 year old male who initially presented with typical chest pain most likely stable coronary artery disease in setting of hypertension, which had improved with control of his hypertension on 2 antianginals, but now with recurrence despite antianginal therapy. Cardiac catheterization did not reveal any significant CAD. 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 Monitor for bradycardia, lightheadedness, dizziness, hypotension, hyperglycemia - Continue with amlodipine 10 mg p.o. daily as second antianginal and goal blood pressure less [id number] - Continue with hydrochlorothiazide/lisinopril combo pill as prescribed goal blood pressure less than 130/80 - Continue aspirin 81 mg p.o. daily and high intensity statin. Patient instructed to monitor for myalgias, right upper quadrant pain, urinary discoloration and bleeding diatheses * Telephone Encounter - Damari Cheney - 12/04/2024 1:28 PM EST Cash is calling George Noriega MD today asking for a call to clarify which medications he needsto be taking. Cash states that he thinks Dr. Noriega wanted him to stop taking one of his heart pills, but he isn't sure Please call to advise Patient has been identified by name and birthdate. Duration of symptoms: N/A Person calling: self Call patient at: on cell [phone] (home) [phone] (cell) Was an appointment scheduled: No Closing statement: Results or non-symptom based questions: Thank you for calling [facility], your call will be returned within the next business day. Damari Cheney documented in this encounterK[facility]03-05-2025 Telephone encounter Note * Telephone Encounter - Damari Cheney - 12/04/2024 1:28 PM EST Cash is calling George Noriega MD today asking for a call to clarify which medications he needsto be taking. Cash states that he thinks Dr. Noriega wanted him to stop taking one of his heart pills, but he isn't sure Please call to advise Patient has been identified by name and birthdate. Duration of symptoms: N/A Person calling: self Call patient at: on cell [phone] (home) [phone] (cell) Was an appointment scheduled: No Closing statement: Results or non-symptom based questions: Thank you for calling [facility], your call will be returned within the next business day. Damari Cheney [facility]03-04-2025 History of Present illness Narrative* George Noriega MD - 12/03/2024 3:20 PM EST Images from the original note were not included. Heart, Vascular and Thoracic [place] [facility] Department of Cardiovascular Medicine SECTION OF INTERVENTIONAL CARDIOLOGY OUTPATIENT VISIT DATE 12/03/2024 OUTPATIENT VISIT TYPE Established PRIMARY CARE PHYSICIAN: Awilda Garcia [address] [place], [place] [id number] REFERRING PHYSICIAN: Awilda Garcia [address] [place], [place] [address] [id number] CHIEF COMPLAINT: Patient presents with: Consult HISTORY OF PRESENT ILLNESS: Prior Visit 02/15/2023: Mr. Michel is a 57 year old male who presents today for evaluation of chest pain. Patient notesthat every time he exerts himself he gets short of breath and has chest pain that radiates down theleft jaw and left arm and is completely alleviated with rest after 10 to 15 minutes. The patient cannot accurately state when the symptom started, but he states that he has had the symptoms for months without having worsening or increasing frequency recently. Patient denies any chest pain at rest, diaphoresis, nausea or vomiting. He also notes that he has Palmer class III intermittent claudication worse in the left leg than the right. Prior Visit 05/18/2023: The patient reports marked improvement in his symptoms since being started on 2 antianginals. He denies any further chest heaviness with exertion. The patient also underwent nuclear stress testing that did not show evidence of ischemia and echocardiogram showed preserved ejection fraction without wall motion abnormalities. Furthermore his SCOTT PVR did not show evidence of peripheral vascular disease and his carotid duplex showed minimal carotid artery stenosis. Risk factors for coronary artery disease hypertension Prior Visit 07/18/2024: Patient reports two episodes of chest pain with exertion lasting 5 minutes despite dual antianginaltherapy. Current Visit 12/03/2024: Underwent cardiac catheterization that did not reveal significant CAD, continues to have non specific chest pain. He denies orthopnea, PND, palpitations, lightheadedness, syncope, leg swelling, cough, and wheezing. Diet / Nutrition: Reports heart healthy diet Weight: no change since last visit Exercise: As above. SOCIAL HISTORY Social History Tobacco Use Smoking status: Never Smokeless tobacco: Never Substance Use Topics Alcohol use: Never Drug use: Never ALLERGIES: ALLERGIES No Known Allergies MEDICATIONS: lisinopril-hydroCHLOROthiazide (ZESTORETIC) 20-12.5 mg per tablet^take 1 tablet by mouth once daily^Disp: 90 tablet^Rfl: 2 HYDROcodone-acetaminophen (NORCO) 5-325 mg per tablet^Take by mouth.^Disp: ^Rfl: naproxen (NAPROSYN) 500 mg tablet^Take 500 mg by mouth twice daily.^Disp: ^Rfl: amLODIPine (NORVASC) 10 mg tablet^20 mg.^Disp: ^Rfl: omeprazole (PRILOSEC) 20 mg capsule^Take by mouth.^Disp: ^Rfl: fluticasone-salmeterol (ADVAIR, WIXELA) 250-50 mcg/dose inhaler^Inhale as instructed.^Disp: ^Rfl: acetaminophen (TYLENOL EXTRA STRENGTH ORAL)^Take by mouth.^Disp: ^Rfl: albuterol HFA (VENTOLIN HFA) 90 mcg/actuation inhaler^Inhale 2 Puffs as instructed every 4 hours asneeded for Wheezing/Shortness of Breath.^Disp: 1 Inhaler^Rfl: 0 metoprolol succinate ER (TOPROL XL) 25 mg 24 hr tablet^Take 0.5 tablets by mouth once daily.^Disp: 45 tablet^Rfl: 3 REVIEW OF SYSTEMS: GENERAL: negative for: fevers, chills, and change in weight HEENT: negative for: headaches, hearing loss, difficulty swallowing, visual changes, nose bleeds, dentures, own teeth SKIN: rashes, lesions, and ulcers RESPIRATORY: SEE HPI CARDIOVASCULAR: See HPI GASTROINTESTINAL: negative for: abdominal pain, nausea, vomiting, difficulty or painful swallowing,and melanotic stools GENITOURINARY: negative for: dysuria, frequency, nocturia, and male potency MUSCULOSKELETAL: negative for: joint pain, joint swelling, muscle pain or myalgias, and pain with walking NEUROLOGIC: negative for: numbness, tingling, and sensation of pins and needles HEMATOLOGY: negative for: bruising easily, prolonged bleeding, anemia, and cancer ENDOCRINE: negative for: cold or heat intolerance, polyuria, polydipsia, goiter, diabetes, and thyroid disease PSYCH: negative for: sleep disturbance, mood disorders, and recent psychosocial stressors PHYSICAL EXAMINATION: 12/03/24 1459 BP: 128/96 BP Position: Sitting Pulse: 87 SpO2: 98% Weight: 81.3 kg (179 lb 3.7 oz) Height: 172.7 cm (5' 8) General: Well appearing, in no acute distress, speaking in complete sentences. Inappropriate affectat times Skin: No clubbing, no cyanosis. Head/Eyes: Extra ocular movements intact Mouth: poor dentition Neck: No jugular venous distention, positive right-sided carotid bruits, carotids have a normal upstroke, no palpable thyromegaly. Lungs: Clear to auscultation and no rales Heart: Regular rhythm, PMI not displaced, S1, S2 normal, no S3, no S4, no heaves, no rub and no murmur. Abdomen: Soft, nontender, bowel sounds normal, no palpable organomegaly, no bruits. Musculoskeletal: Normal gait and ambulation Neuro: Oriented to time, place and person Peripheral Arterial Exam Location Right Left Carotid + Bruit No Bruit Femoral 2+/2+ 2+/2+ Popliteal 2+/2+ 2+/2+ Dorsalis Pedis 1+/2+ 1/2+ Posterior Tibial 1+/2+ 2+/2+ High Abdomen No bruit Low Abdomen No Bruit CARDIOVASCULAR MEDICINE TESTING: Cardiac catheterization Electrocardiogram: normal sinus rhythm, LVH Laboratory: LDL 122, total cholesterol 182, creatinine 1.14, hemoglobin 14.8, platelets 329 Nuclear Stress test : CONCLUSIONS:04/17/2023 1. SPECT Perfusion Study: Normal. 2. There is no scintigraphic evidence for inducible ischemia. 3. No evidence of scarred myocardium. 4. Left ventricle is normal in size. The left ventricle systolic function is normal. 5. Right ventricle is normal in size. The right ventricle systolic function is normal. 6. This is a low risk scan. Gated Stress FBP LVEF % 63 Carotid duplex: IMPRESSION RIGHT SIDE Common carotid artery: Plaque visualized without evidence of hemodynamically significant stenosis. Internal carotid artery: 20-39% stenosis. Vertebral artery: Patent and antegrade flow noted. Subclavian artery: Plaque visualized without evidence of hemodynamically significant stenosis. LEFT SIDE Common carotid artery: Plaque visualized without evidence of hemodynamically significant stenosis. Internal carotid artery: 20-39% stenosis. Vertebral artery: Patent and antegrade flow noted. High resistive signal suggests non-dominant vessel or more distal disease; clinical correlation is suggested. Technologist: Yvette Romeo RVT Ordering physician: GEORGE NORIEGA Interpreting physician: Ben Devine MD, RVT T/PVR: IMPRESSION RIGHT SIDE Resting right ankle brachial index: 1.15 Normal ankle brachial index at rest in the right leg. Right ankle: Normal at rest. Right small vessel disease versus vasoconstriction. LEFT SIDE Resting left ankle brachial index: 1.10 Normal ankle brachial index at rest in the left leg. Left ankle: Normal at rest. Technologist: Yvette Romeo RVT Ordering physician: GEORGE NORIEGA Interpreting physician: Ben Devine MD, RVT I have personally reviewed the Electrocardiogram, nuclear stress test nonpatent, SCOTT/PVR, carotid duplex and Laboratory Testing. IMPRESSION: Mr. Michel is a 59 year old male who initially presented with typical chest pain most likely stable coronary artery disease in setting of hypertension, which had improved with control of his hypertension on 2 antianginals, but now with recurrence despite antianginal therapy. Cardiac catheterization did not reveal any significant CAD. 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 Monitor for bradycardia, lightheadedness, dizziness, hypotension, hyperglycemia - Continue with amlodipine 10 mg p.o. daily as second antianginal and goal blood pressure less [id number] - Continue with hydrochlorothiazide/lisinopril combo pill as prescribed goal blood pressure less than 130/80 - Continue aspirin 81 mg p.o. daily and high intensity statin. Patient instructed to monitor for myalgias, right upper quadrant pain, urinary discoloration and bleeding diatheses -Heart healthy diet counseling performed -age and risk appropriate malignancy screening per PCP -if patient has recurrent or worsening symptoms, patient is instructed to come to the ED or call 911 -patient understands and agrees with the plan - Return to clinic as needed CONTACT INFORMATION: George Noriega M.D. Section of Interventional Cardiology & Endovascular Interventions [facility] De [facility] Bower Department of Cardiovascular Medicine Heart, Vascular and Thoracic [place] [facility] Office Office Pager [phone] This note was partially generated using [employer] voice recognition system, and there may be some incorrect words, spellings, and punctuation that were not noted in checking the note before saving documented in this encounterKettering [facility]03-04-2025 NoteHNO ID: [id number] Author: GEORGE NORIEGA MD Service: ? Author Type: Physician Type: Progress Notes Filed: 12/03/2024 15:33 Note Text: Heart, Vascular and Thoracic [facility] Wendi Barrett Department of Cardiovascular Medicine SECTION OF INTERVENTIONAL CARDIOLOGY OUTPATIENT VISIT DATE 12/03/2024 OUTPATIENT VISIT TYPE Established PRIMARY CARE PHYSICIAN: Awilda Garcia [address] [place] [address] REFERRING PHYSICIAN: Awilda Garcia [address] [facility] [id number] CHIEF COMPLAINT: Patient presents with: Consult HISTORY OF PRESENT ILLNESS: Prior Visit 02/15/2023: Mr. Michel is a 57 year old male who presents today for evaluation of chest pain. Patient notes that every time he exerts himself he gets short of breath and has chest pain that radiates down the left jaw and left arm and is completely alleviated with rest after 10 to 15 minutes. The patient cannot accurately state when the symptom started, but he states that he has had the symptoms for months without having worsening or increasing frequency recently. Patient denies any chest pain at rest, diaphoresis, nausea or vomiting. He also notes that he has Mathew class III intermittent claudication worse in the left leg than the right. Prior Visit 05/18/2023: The patient reports marked improvement in his symptoms since being started on 2 antianginals. He denies any further chest heaviness with exertion. The patient also underwent nuclear stress testing that did not show evidence of ischemia and echocardiogram showed preserved ejection fraction without wall motion abnormalities. Furthermore his SCOTT PVR did not show evidence of peripheral vascular disease and his carotid duplex showed minimal carotid artery stenosis. Risk factors for coronary artery disease hypertension Prior Visit 07/18/2024: Patient reports two episodes of chest pain with exertion lasting 5 minutes despite dual antianginal therapy. Current Visit 12/03/2024: Underwent cardiac catheterization that did not reveal significant CAD, continues to have non specific chest pain. He denies orthopnea, PND, palpitations, lightheadedness, syncope, leg swelling, cough, and wheezing. Diet / Nutrition: Reports heart healthy diet Weight: no change since last visit Exercise: As above. SOCIAL HISTORY Social History Tobacco Use Smoking status: Never Smokeless tobacco: Never Substance Use Topics Alcohol use: Never Drug use: Never ALLERGIES: ALLERGIES No Known Allergies MEDICATIONS: lisinopril-hydroCHLOROthiazide (ZESTORETIC) 20-12.5 mg per tablettake 1 tablet by mouth once dailyDisp: 90 tabletRfl: 2 HYDROcodone-acetaminophen (NORCO) 5-325 mg per tabletTake by mouth.Disp: Rfl: naproxen (NAPROSYN) 500 mg tabletTake 500 mg by mouth twice daily.Disp: Rfl: amLODIPine (NORVASC) 10 mg [id number] mg.Disp: Rfl: omeprazole (PRILOSEC) 20 mg capsuleTake by mouth.Disp: Rfl: fluticasone-salmeterol (ADVAIR, WIXELA) 250-50 mcg/dose inhalerInhale as instructed.Disp: Rfl: acetaminophen (TYLENOL EXTRA STRENGTH ORAL)Take by mouth.Disp: Rfl: albuterol HFA (VENTOLIN HFA) 90 mcg/actuation inhalerInhale 2 Puffs as instructed every 4 hours as needed for Wheezing/Shortness of Breath.Disp: 1 InhalerRfl: 0 metoprolol succinate ER (TOPROL XL) 25 mg 24 hr tabletTake 0.5 tablets by mouth once daily.Disp: 45 tabletRfl: 3 REVIEW OF SYSTEMS: GENERAL: negative for: fevers, chills, and change in weight HEENT: negative for: headaches, hearing loss, difficulty swallowing, visual changes, nose bleeds, dentures, own teeth SKIN: rashes, lesions, and ulcers RESPIRATORY: SEE HPI CARDIOVASCULAR: See HPI GASTROINTESTINAL: negative for: abdominal pain, nausea, vomiting, difficulty or painful swallowing, and melanotic stools GENITOURINARY: negative for: dysuria, frequency, nocturia, and male potency MUSCULOSKELETAL: negative for: joint pain, joint swelling, muscle pain or myalgias, and pain with walking NEUROLOGIC: negative for: numbness, tingling, and sensation of pins and needles HEMATOLOGY: negative for: bruising easily, prolonged bleeding, anemia, and cancer ENDOCRINE: negative for: cold or heat intolerance, polyuria, polydipsia, goiter, diabetes, and thyroid disease PSYCH: negative for: sleep disturbance, mood disorders, and recent psychosocial stressors PHYSICAL EXAMINATION: 12/03/24 1459 BP: 128/96 BP Position: Sitting Pulse: 87 SpO2: 98% Weight: 81.3 kg (179 lb 3.7 oz) Height: 172.7 cm (5' 8) General: Well appearing, in no acute distress, speaking in complete sentences. Inappropriate affect at times Skin: No clubbing, no cyanosis. Head/Eyes: Extra ocular movements intact Mouth: poor dentition Neck: No jugular venous distention, positive right-sided carotid bruits, carotids have a normal upstroke, no palpable thyromegaly. Lungs: Clear to au (more content not included)...[facility] 11-26-2024 NotePatient Outreach (INTMMN) CASH MICHEL ([id number]) 1965 M T Date Time Provider Department 11/26/24 AWILDA GARCIA INTMMN During your visit today, we recorded the following information about you: Allergies As of Date: 11/26/2024 (No Known Allergies) Date Reviewed: 10/22/2024 Reviewed by: Serina Garcia RN - Fully Assessed Primary Visit Diagnosis:Screening for prostate cancer [Z12.5] Other Visit Diagnosis:HLD (hyperlipidemia) [E78.5] Order(s):LIPID PANEL BASIC [SQLIPB] Order #: [id number] FUTURE PSA/PROSTATE SPECIFIC ANTIGEN SCREENING [SQPSAS1] Order #: [id number] FUTURE Prescriptions as of 11/26/2024 - amLODIPine (NORVASC) 10 mg tablet Take 2 tablets by mouth once daily. - albuterol HFA (VENTOLIN HFA) 90 mcg/actuation inhaler Inhale 2 Puffs as instructed every 4 hours as needed for wheezing/shortness of breath. - aspirin, enteric coated (ASPIRIN, ENTERIC COATED) 81 mg EC tablet Take 1 tablet by mouth once daily. - lisinopril-hydroCHLOROthiazide (ZESTORETIC) 20-12.5 mg per tablet Take 1 tablet by mouth once daily. - metoprolol succinate ER (TOPROL XL) 25 mg 24 hr tablet Take 0.5 tablets by mouth once daily. - rosuvastatin (CRESTOR) 20 mg tablet Take 1 tablet by mouth daily at bedtime. - triamcinolone acetonide (KENALOG) 0.5 % cream Apply 1 application to affected area two times a day. Problem List As Of Date 11/26/2024 Noted Resolved HLD (hyperlipidemia) [E78.5] 07/13/2022 Benign prostatic hyperplasia without lower urin*07/13/2022 Vitamin D deficiency [E55.9] 07/13/2022 Neck pain [M54.2] 01/11/2023 Atherosclerosis of chilkat arteries of extremity*02/15/2023 BMI 26.0-26.9,adult [Z68.26] 04/07/2023 Anxiety [F41.9] 04/07/2023 Cholelithiasis without cholecystitis [K80.20] 04/07/2023 Asthma [J45.909] 04/07/2023 Breast lump on left side at 11 o'clock position*04/07/2023 Cardiomyopathy (HCC) [I42.9] 04/07/2023 05/18/2023 Dysphagia [R13.10] 04/07/2023 Transient loss of consciousness [R55] 04/07/2023 Steatosis of liver [K76.0] 04/07/2023 Shortness of breath [R06.02] 04/07/2023 Right upper quadrant abdominal pain [R10.11] 05/10/2022 Rib pain [R07.81] 04/07/2023 Photokeratitis [H16.139] 04/07/2023 Palpitations [R00.2] 04/07/2023 Olecranon bursitis of left elbow [M70.22] 04/07/2023 Non-smoker [Z78.9] 04/07/2023 Muscle spasm [M62.838] 04/07/2023 Impingement syndrome of left shoulder [M75.42] 04/07/2023 Gastroesophageal reflux disease with hiatal her*04/07/2023 Hemoptysis [R04.2] 04/07/2023 Hypertension [I10] 02/10/2023 Hearing loss of right ear [H91.91] 04/07/2023 Dysuria [R30.0] 04/07/2023 Dizziness [R42] 04/07/2023 Contusion of chest wall [S20.219A] 04/07/2023 Closed head injury [S09.90XA] 04/07/2023 Constipation [K59.00] 04/07/2023 Carotid artery stenosis [I65.29] 05/18/2023 Restrictive pattern present on pulmonary functi*08/07/2023 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 Service: ? Author Type: ? Type: Progress Notes Filed: 11/20/2024 15:02 Note Text: [facility] [facility] NoteHNO ID: [id number] Author: ?, ?, ? Service: ? Author Type: ? Type: Progress Notes Filed: 11/18/2024 14:08 Note Text: Tried to call 2nd attempt no answer no VM set up.[facility] 11-15-2024 NoteHNO ID: [id number] Author: ?, ?, ? Service: ? Author Type: ? Type: Progress Notes Filed: 11/15/2024 15:31 Note Text: Placed call to patient no answer no vm set up. Will send My Chart. The last time they logged on to My Chart was in September.[facility]02-12-2025 NoteHNO ID: [id number] Author: JOVANA SEXTON RN Service: ? Author Type: Registered Nurse Type: Progress Notes Filed: 11/13/2024 11:30 Note Text: ED Follow-Up Note FYI - OUTREACH OUTCOME: OUTREACH COMPLETED Outreach was completed via telephone regarding the member's recent OON ED visit. Member denies any concerning symptoms or current medical or social needs. The member was encouraged to contact their primary care provider (PCP) to schedule a follow up appointment and ask any questions related to their ongoing care within 7 days of the ED visit. Member stated understanding. Call completed by: RN Patient seen in ED: Out of Network ED Contact made with Patient: Yes The patient was identified by Name and Date of . Discussed Care with: patient Patient was seen in the Emergency Department (ED) Location: [place] Date: 11/11/24 Reason for ED Visit: Injured Right side of body-Had subsequent Chest Pain ED Intervention: MRI only New Medications: Pain medication (narcotic) for 3 days. Patient was in route to his GI MD appt. and could not remember the name of the Narcotic that he is taking. Medication Changes: No Does patient understand medication changes: Yes Can patient afford medication changes: Yes Patient educated on worsening symptoms and when and where to seek additional care: Yes Patient Education Provided including treatment plan and new orders. Patient provided with appropriate counseling: Yes Based on spring former, the following disposition is advised: No symptoms or symptoms present, not severe. Routed to: No Action Needed MARISOL Education Provided this Outreach: No Jovana Sexton RN November 13, 2024 11:17 [facility]02-12-2025 History of Present illness Narrative* Jovana Sexton RN - 11/13/2024 11:11 AM EST ED Follow-Up Note FYI - OUTREACH OUTCOME: OUTREACH COMPLETED Outreach was completed via telephone regarding the member's recent OON ED visit. Member denies any concerning symptoms or current medical or social needs. The member was encouraged to contact their primary care provider (PCP) to schedule a follow up appointment and ask any questions related to their ongoing care within 7 days of the ED visit. Member stated understanding. Call completed by: RN Patient seen in ED: Out of Network ED Contact made with Patient: Yes The patient was identified by Name and Date of . Discussed Care with: patient Patient was seen in the Emergency Department (ED) Location: [place] Date: 11/11/24 Reason for ED Visit: Injured Right side of body-Had subsequent Chest Pain ED Intervention: MRI only New Medications: Pain medication (narcotic) for 3 days. Patient was in route to his GI MD appt. andcould not remember the name of the Narcotic that he is taking. Medication Changes: No Does patient understand medication changes: Yes Can patient afford medication changes: Yes Patient educated on worsening symptoms and when and where to seek additional care: Yes Patient Education Provided including treatment plan and new orders. Patient provided with appropriate counseling: Yes Based on spring former, the following disposition is advised: No symptoms or symptoms present, not severe. Routed to: No Action Needed MARISOL Education Provided this Outreach: No Jovana Sexton RN November 13, 2024 11:17 AM documented in [facility] NotePatient Outreach ([facility]) ACSH MICHEL ([id number]) 1965 M [facility] Date Time Provider Department 11/13/[facility] your visit today, we recorded the following information about you: Jovana Sexton RN 11/13/2024 11:30 AM Signed ED Follow-Up Note FYI - OUTREACH OUTCOME: OUTREACH COMPLETED Outreach was completed via telephone regarding the member's recent OON ED visit. Member denies any concerning symptoms or current medical or social needs. The member was encouraged to contact their primary care provider (PCP) to schedule a follow up appointment and ask any questions related to their ongoing care within 7 days of the ED visit. Member stated understanding. Call completed by: RN Patient seen in ED: Out of Network ED Contact made with Patient: Yes The patient was identified by Name and Date of . Discussed Care with: patient Patient was seen in the Emergency Department (ED) Location: [place] Date: 11/11/24 Reason for ED Visit: Injured Right side of body-Had subsequent Chest Pain ED Intervention: MRI only New Medications: Pain medication (narcotic) for 3 days. Patient was in route to his GI MD appt. and could not remember the name of the Narcotic that he is taking. Medication Changes: No Does patient understand medication changes: Yes Can patient afford medication changes: Yes Patient educated on worsening symptoms and when and where to seek additional care: Yes Patient Education Provided including treatment plan and new orders. Patient provided with appropriate counseling: Yes Based on spring former, the following disposition is advised: No symptoms or symptoms present, not severe. Routed to: No Action Needed MARISOL Education Provided this Outreach: No Jovana Sexton RN November 13, 2024 11:17 AM Mel Wu 11/15/2024 3:31 PM Signed Placed call to patient no answer no vm set up. Will send My Chart. The last time they logged on to My Chart was in September. Mel Wu 11/18/2024 2:08 PM Signed Tried to call 2nd attempt no answer no VM set up. Clau Wilks 11/20/2024 3:02 PM Signed Appointment 12/13/[address] Garcia Allergies As of Date: 11/13/2024 (No Known Allergies) Date Reviewed: 10/22/2024 Reviewed by: Green, Serina, RN - Fully Assessed Prescriptions as of 11/20/2024 - amLODIPine (NORVASC) 10 mg tablet Take 2 tablets by mouth once daily. - albuterol HFA (VENTOLIN HFA) 90 mcg/actuation inhaler Inhale 2 Puffs as instructed every 4 hours as needed for wheezing/shortness of breath. - aspirin, enteric coated (ASPIRIN, ENTERIC COATED) 81 mg EC tablet Take 1 tablet by mouth once daily. - lisinopril-hydroCHLOROthiazide (ZESTORETIC) 20-12.5 mg per tablet Take 1 tablet by mouth once daily. - metoprolol succinate ER (TOPROL XL) 25 mg 24 hr tablet Take 0.5 tablets by mouth once daily. - rosuvastatin (CRESTOR) 20 mg tablet Take 1 tablet by mouth daily at bedtime. - triamcinolone acetonide (KENALOG) 0.5 % cream Apply 1 application to affected area two times a day. Problem List As Of Date 11/13/2024 Noted Resolved HLD (hyperlipidemia) [E78.5] 07/13/2022 Benign prostatic hyperplasia without lower urin*07/13/2022 Vitamin D deficiency [E55.9] 07/13/2022 Neck pain [M54.2] 01/11/2023 Atherosclerosis of chilkat arteries of extremity*02/15/2023 BMI 26.0-26.9,adult [Z68.26] 04/07/2023 Anxiety [F41.9] 04/07/2023 Cholelithiasis without cholecystitis [K80.20] 04/07/2023 Asthma [J45.909] 04/07/2023 Breast lump on left side at 11 o'clock position*04/07/2023 Cardiomyopathy (HCC) [I42.9] 04/07/2023 05/18/2023 Dysphagia [R13.10] 04/07/2023 Transient loss of consciousness [R55] 04/07/2023 Steatosis of liver [K76.0] 04/07/2023 Shortness of breath [R06.02] 04/07/2023 Right upper quadrant abdominal pain [R10.11] 05/10/2022 Rib pain [R07.81] 04/07/2023 Photokeratitis [H16.139] 04/07/2023 Palpitations [R00.2] 04/07/2023 Olecranon bursitis of left elbow [M70.22] 04/07/2023 Non-smoker [Z78.9] 04/07/2023 Muscle spasm [M62.838] 04/07/2023 Impingement syndrome of left shoulder [M75.42] 04/07/2023 Gastroesophageal reflux disease with hiatal her*04/07/2023 Hemoptysis [R04.2] 04/07/2023 Hypertension [I10] 02/10/2023 Hearing loss of right ear [H91.91] 04/07/2023 Dysuria [R30.0] 04/07/2023 Dizziness [R42] 04/07/2023 Contusion of chest wall [S20.219A] 04/07/2023 Closed head injury [S09.90XA] 04/07/2023 Constipation [K59.00] 04/07/2023 Carotid artery stenosis [I65.29] 05/18/2023 Restrictive pattern present on pulmonary functi*08/07/2023 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 George Noriega. Called patient, who shared he would like to reschedule into October. Opted for 10/22/2024 date. He would like to keep the existing 10/18/[address] Noriega to review any questions that arise. Will have lab work drawn after the appointment at [facility]. Procedure instructions submitted via ImageTag for patient's review. [facility] Work Phone: [phone]) 182-709912-18-2024 Miscellaneous Notes* Telephone Encounter - Sincere Jacobo - 09/18/2024 2:59 PM EST Received notification that patient cancelled his originally scheduled heart catheterization at [facility] with Dr. George Noriega. Called patient, who shared he would like to reschedule into October. Opted for 10/22/2024 date. He would like to keep the existing 10/18/[address] Noriega to review any questions that arise. Will have lab work drawn after the appointment at [facility]. Procedure instructions submitted via ImageTag for patient's review. documented in this encounterK[facility]11-20-2024 Telephone encounter Note * Telephone Encounter - Diamond Mendiola - 08/21/2024 11:07 AM EST error [facility]11-20-2024 Miscellaneous Notes* Telephone Encounter - Diamond Mendiola - 08/21/2024 11:07 AM EST error documented in this encounterK[facility]11-19-2024 NoteHNO ID: [id number] Author: AWILDA GARCIA MD Service: ? Author Type: Physician Type: Progress Notes Filed: 08/20/2024 14:38 Note Text: This note was created using [employer]. Subjective Cash Michel is a 59 year old male. The history is provided by the patient. Blood Pressure This is a chronic problem. The current episode started more than 1 year ago. The problem is unchanged. The problem is controlled. Risk factors for coronary artery disease include family history and dyslipidemia. Past treatments include YURI inhibitors, calcium channel blockers, beta blockers and diuretics. The current treatment provides significant improvement. There are no compliance problems. Review of Systems All other systems reviewed and are negative. Past Medical history: PAST MEDICAL HISTORY Diagnosis Date Asthma Body mass index 26.0-26.9, adult Breast lump on left side at 11 o'clock position Breast pain CAD (coronary artery disease) Chest pain syndrome Intermittent chest pain for long time Cholecystolithiasis Dysphagia Gallstones Gastroesophageal reflux disease Hearing loss in right ear Hemoptysis Hiatal hernia HTN (hypertension) Impingement syndrome of left shoulder Mixed hyperlipidemia Rib pain Shortness of breath Steatosis, liver Transient loss of consciousness Urinary hesitancy Past Surgical History: PAST SURGICAL HISTORY Procedure Laterality Date EGD W/O [facility] SPEC VARICIES INJ 04/25/2023 Gastric antral body type mucosa with mild chronic inactive gastritis, 5cm hiatal hernia RIGHT HEART CATHERIZATION 11/07/2003 Family History: FAMILY HISTORY Problem Relation Age of Onset Diabetes Mother Heart disease Mother other (CHF) Mother Hypertension Mother Kidney Disease Mother Heart disease Father 83 [place] at age 83 Hypertension Father Parkinson?s Disease Brother Social History: Social History Tobacco Use Smoking status: Never Smokeless tobacco: Never Vaping Use Vaping status: Never Used Substance Use Topics Alcohol use: Never Drug use: Never Current Medications: triamcinolone acetonide (KENALOG) 0.5 % cream, Apply 1 application to affected area two times a day., Disp: 45 g, Rfl: 1 amLODIPine (NORVASC) 10 mg tablet, Take 2 tablets by mouth once daily., Disp: 180 tablet, Rfl: 0 albuterol HFA (VENTOLIN HFA) 90 mcg/actuation inhaler, Inhale 2 Puffs as instructed every 4 hours as needed for wheezing/shortness of breath., Disp: 1 Each, Rfl: 1 aspirin, enteric coated (ASPIRIN, ENTERIC COATED) 81 mg EC tablet, Take 1 tablet by mouth once daily., Disp: 90 tablet, Rfl: 3 lisinopril-hydroCHLOROthiazide (ZESTORETIC) 20-12.5 mg per tablet, Take 1 tablet by mouth once daily., Disp: 90 tablet, Rfl: 2 metoprolol succinate ER (TOPROL XL) 25 mg 24 hr tablet, Take 0.5 tablets by mouth once daily., Disp: 45 tablet, Rfl: 3 rosuvastatin (CRESTOR) 20 mg tablet, Take 1 tablet by mouth daily at bedtime., Disp: 90 tablet, Rfl: 3 [DISCONTINUED] metoprolol succinate ER (TOPROL XL) 25 mg 24 hr tablet, Take 0.5 tablets by mouth once daily., Disp: 45 tablet, Rfl: 3 [DISCONTINUED] rosuvastatin (CRESTOR) 20 mg tablet, Take 1 tablet by mouth daily at bedtime., Disp: 90 tablet, Rfl: 3 [DISCONTINUED] aspirin, enteric coated (ASPIRIN, ENTERIC COATED) 81 mg EC tablet, take one tablet by mouth daily, Disp: 90 tablet, Rfl: 3 [DISCONTINUED] amLODIPine (NORVASC) 10 mg tablet, Take 2 tablets by mouth once daily., Disp: 180 tablet, Rfl: 0 [DISCONTINUED] albuterol HFA (VENTOLIN HFA) 90 mcg/actuation inhaler, Inhale 2 Puffs as instructed every 4 hours as needed for wheezing/shortness of breath., Disp: 1 Each, Rfl: 1 [DISCONTINUED] lisinopril-hydroCHLOROthiazide (ZESTORETIC) 20-12.5 mg per tablet, Take 1 tablet by mouth once daily., Disp: 90 tablet, Rfl: 2 No facility-administered encounter medications on file as of 08/20/2024. Allergies: ALLERGIES No Known Allergies Vitals: BP 132/94 Pulse 85 Temp (Src) 99.1 (Temporal) Ht 5' 8 (1.73m) Wt 182 lb 8.7 oz (82.8kg) SpO2 98% BMI 27.76 kg/(m2). Objective BP 132/94 (BP Site: Right Arm, BP Position: Sitting, BP Cuff Size: Regular Adult) Pulse 85 Temp 37.3 ?C (99.1 ?F) (Temporal) Ht 172.7 cm (5' 8) Wt 82.8 kg (182 lb 8.7 oz) SpO2 98% BMI 27.76 kg/m? Physical Exam Constitutional: General: He is not in acute distress. HENT: Head: Normocephalic and atraumatic. Eyes: Conjunctiva/sclera: Conjunctivae normal. Pupils: Pupils are equal, round, and reactive to light. Cardiovascular: Rate and Rhythm: Normal rate and regular rhythm. Heart sounds: Normal heart sounds. No murmur heard. No friction rub. No gallop. Pulmonary: Effort: Pulmonary effort is normal. No respiratory distress. Breath sounds: Normal breath sounds. No wheezing or rales. Chest: Chest wall: No tenderness. Abdominal: General: Bowel sounds are normal. There is no distension. Palpations: Abdomen is (more content not included)...[facility] 08-20-2024 History of Present illness Narrative* Awilda Garcia MD - 08/20/2024 2:37 PM EST This note was created using NoteWriter. Subjective Cash Michel is a 59 year old male. The history is provided by the patient. Blood Pressure This is a chronic problem. The current episode started more than 1 year ago. The problem is unchanged. The problem is controlled. Risk factors for coronary artery disease include family history and dyslipidemia. Past treatments include YURI inhibitors, calcium channel blockers, beta blockers and diuretics. The current treatment provides significant improvement. There are no compliance problems. Review of Systems All other systems reviewed and are negative. Past Medical history: PAST MEDICAL HISTORY Diagnosis Date Asthma Body mass index 26.0-26.9, adult Breast lump on left side at 11 o'clock position Breast pain CAD (coronary artery disease) Chest pain syndrome Intermittent chest pain for long time Cholecystolithiasis Dysphagia Gallstones Gastroesophageal reflux disease Hearing loss in right ear Hemoptysis Hiatal hernia HTN (hypertension) Impingement syndrome of left shoulder Mixed hyperlipidemia Rib pain Shortness of breath Steatosis, liver Transient loss of consciousness Urinary hesitancy Past Surgical History: PAST SURGICAL HISTORY Procedure Laterality Date [facility]IC[facility] INJ 04/25/2023 Gastric antral body type mucosa with mild chronic inactive gastritis, 5cm hiatal hernia RIGHT HEART CATHERIZATION 11/07/2003 Family History: FAMILY HISTORY Problem Relation Age of Onset Diabetes Mother Heart disease Mother other (CHF) Mother Hypertension Mother Kidney Disease Mother Heart disease Father 83 [place] at age 83 Hypertension Father Parkinson s Disease Brother Social History: Social History Tobacco Use Smoking status: Never Smokeless tobacco: Never Vaping Use Vaping status: Never Used Substance Use Topics Alcohol use: Never Drug use: Never Current Medications: triamcinolone acetonide (KENALOG) 0.5 % cream, Apply 1 application to affectedarea two times a day., Disp: 45 g, Rfl: 1 amLODIPine (NORVASC) 10 mg tablet, Take 2 tablets by mouth once daily., Disp: 180 tablet, Rfl: 0 albuterol HFA (VENTOLIN HFA) 90 mcg/actuation inhaler, Inhale 2 Puffs as instructed every 4 hours as needed for wheezing/shortness of breath., Disp: 1 Each, Rfl: 1 aspirin, enteric coated (ASPIRIN, ENTERIC COATED) 81 mg EC tablet, Take 1 tablet by mouth once daily., Disp: 90 tablet, Rfl: 3 lisinopril-hydroCHLOROthiazide (ZESTORETIC) 20-12.5 mg per tablet, Take 1 tablet by mouth once daily., Disp: 90 tablet, Rfl: 2 metoprolol succinate ER (TOPROL XL) 25 mg 24 hr tablet, Take 0.5 tablets by mouth once daily., Disp: 45 tablet, Rfl: 3 rosuvastatin (CRESTOR) 20 mg tablet, Take 1 tablet by mouth daily at bedtime., Disp: 90 tablet, Rfl: 3 [DISCONTINUED] metoprolol succinate ER (TOPROL XL) 25 mg 24 hr tablet, Take 0.5 tablets by mouth once daily., Disp: 45 tablet, Rfl: 3 [DISCONTINUED] rosuvastatin (CRESTOR) 20 mg tablet, Take 1 tablet by mouth daily at bedtime., Disp:90 tablet, Rfl: 3 [DISCONTINUED] aspirin, enteric coated (ASPIRIN, ENTERIC COATED) 81 mg EC tablet, take one tablet by mouth daily, Disp: 90 tablet, Rfl: 3 [DISCONTINUED] amLODIPine (NORVASC) 10 mg tablet, Take 2 tablets by mouth once daily., Disp: 180 tablet, Rfl: 0 [DISCONTINUED] albuterol HFA (VENTOLIN HFA) 90 mcg/actuation inhaler, Inhale 2 Puffs as instructed every 4 hours as needed for wheezing/shortness of breath., Disp: 1 Each, Rfl: 1 [DISCONTINUED] lisinopril-hydroCHLOROthiazide (ZESTORETIC) 20-12.5 mg per tablet, Take 1 tablet by mouth once daily., Disp: 90 tablet, Rfl: 2 No facility-administered encounter medications on file as of 08/20/2024. Allergies: ALLERGIES No Known Allergies Vitals: BP 132/94 Pulse 85 Temp (Src) 99.1 (Temporal) Ht 5' 8 (1.73m) Wt 182 lb 8.7 oz (82.8kg) SpO2 98% BMI 27.76 kg/(m^2). Objective BP 132/94 (BP Site: Right Arm, BP Position: Sitting, BP Cuff Size: Regular Adult) Pulse 85 Temp37.3 C (99.1 F) (Temporal) Ht 172.7 cm (5' 8) Wt 82.8 kg (182 lb 8.7 oz) SpO2 98% BMI 27.76 kg/m Physical Exam Constitutional: General: He is not in acute distress. HENT: Head: Normocephalic and atraumatic. Eyes: Conjunctiva/sclera: Conjunctivae normal. Pupils: Pupils are equal, round, and reactive to light. Cardiovascular: Rate and Rhythm: Normal rate and regular rhythm. Heart sounds: Normal heart sounds. No murmur heard. No friction rub. No gallop. Pulmonary: Effort: Pulmonary effort is normal. No respiratory distress. Breath sounds: Normal breath sounds. No wheezing or rales. Chest: Chest wall: No tenderness. Abdominal: General: Bowel sounds are normal. There is no distension. Palpations: Abdomen is soft. There is no mass. Tenderness: There is no abdominal tenderness. There is no guarding or rebound. Musculoskeletal: Cervical back: Normal range of motion and neck supple. Neurological: General: No focal deficit present. Mental Status: He is alert and oriented to person, place, and time. Psychiatric: Mood and Affect: Mood normal. Behavior: Behavior normal. Assessment and Plan ASSESSMENT/PLAN: 1. Essential hypertension - ICD9: 401.9, ICD10: I10 (primary diagnosis) Patient compliant with current medications. Discussed risk, benefits, and alternatives of medications. Explained the importance of risk factor modification and the importance of compliance for betteroutcomes. Emphasized the importance of diet and exercise, and avoiding salt and saturated fat in the diet. 2. Encounter for immunization - ICD9: V03.89, ICD10: Z23 - INFLUENZA VACCINE, AGE 6MO-64YR, TRIVALENT (AFLURIA, FLULAVAL, FLUVIRIN, FLUZONE) - 77 Pieces COVID-19 VACCINE AGE 12+ YR (COMIRNATY) 3. Hyperlipidemia, unspecified hyperlipidemia type - ICD9: 272.4, ICD10: E78.5 - ASPIRIN 81 MG TABLET,DELAYED RELEASE - ROSUVASTATIN 20 MG TABLET 4. 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 [facility]ie[facility] patient, obtain his voice mail, left a message with imaging scheduler's direct phone number and to also refer to [employer] regarding dates of availability. [facility] Work Phone: [phone] Miscellaneous Notes* Telephone Encounter - Sincere Jacobo - 07/22/2024 3:06 PM EDT A request has been received from Dr. George Noriega to assist in scheduling a heart [facility]. Called patient, obtain his voice mail, left a message with imaging scheduler's direct phone number and to also refer to [employer] regarding dates of availability. documented in this encounterK[facility]10-17-2024 NoteHNO ID: [id number] Author: GEORGE NORIEGA MD Service: ? Author Type: Physician Type: Progress Notes Filed: 07/18/2024 16:18 Note Text: Heart, Vascular and Thoracic [place] [facility] Department of Cardiovascular Medicine SECTION OF INTERVENTIONAL CARDIOLOGY OUTPATIENT VISIT DATE 07/18/2024 OUTPATIENT VISIT TYPE Established PRIMARY CARE PHYSICIAN: Awilda Garcia [address] [place] [address] REFERRING PHYSICIAN: Awilda Garcia [address] [facility] [address] CHIEF COMPLAINT: Patient presents with: Consult HISTORY OF PRESENT ILLNESS: Prior Visit 02/15/2023: Mr. Michel is a 57 year old male who presents today for evaluation of chest pain. Patient notes that every time he exerts himself he gets short of breath and has chest pain that radiates down the left jaw and left arm and is completely alleviated with rest after 10 to 15 minutes. The patient cannot accurately state when the symptom started, but he states that he has had the symptoms for months without having worsening or increasing frequency recently. Patient denies any chest pain at rest, diaphoresis, nausea or vomiting. He also notes that he has Palmer class III intermittent claudication worse in the left leg than the right. Prior Visit 05/18/2023: The patient reports marked improvement in his symptoms since being started on 2 antianginals. He denies any further chest heaviness with exertion. The patient also underwent nuclear stress testing that did not show evidence of ischemia and echocardiogram showed preserved ejection fraction without wall motion abnormalities. Furthermore his SCOTT PVR did not show evidence of peripheral vascular disease and his carotid duplex showed minimal carotid artery stenosis. Risk factors for coronary artery disease hypertension Current Visit 07/18/2024: Patient reports two episodes of chest pain with exertion lasting 5 minutes despite dual antianginal therapy. He denies orthopnea, PND, palpitations, lightheadedness, syncope, leg swelling, cough, and wheezing. Diet / Nutrition: Reports heart healthy diet Weight: no change since last visit Exercise: As above. SOCIAL HISTORY Social History Tobacco Use Smoking status: Never Smokeless tobacco: Never Substance Use Topics Alcohol use: Never Drug use: Never ALLERGIES: ALLERGIES No Known Allergies MEDICATIONS: lisinopril-hydroCHLOROthiazide (ZESTORETIC) 20-12.5 mg per tablettake 1 tablet by mouth once dailyDisp: 90 tabletRfl: 2 HYDROcodone-acetaminophen (NORCO) 5-325 mg per tabletTake by mouth.Disp: Rfl: naproxen (NAPROSYN) 500 mg tabletTake 500 mg by mouth twice daily.Disp: Rfl: amLODIPine (NORVASC) 10 mg [id number] mg.Disp: Rfl: omeprazole (PRILOSEC) 20 mg capsuleTake by mouth.Disp: Rfl: fluticasone-salmeterol (ADVAIR, WIXELA) 250-50 mcg/dose inhalerInhale as instructed.Disp: Rfl: acetaminophen (TYLENOL EXTRA STRENGTH ORAL)Take by mouth.Disp: Rfl: albuterol HFA (VENTOLIN HFA) 90 mcg/actuation inhalerInhale 2 Puffs as instructed every 4 hours as needed for Wheezing/Shortness of Breath.Disp: 1 InhalerRfl: 0 metoprolol succinate ER (TOPROL XL) 25 mg 24 hr tabletTake 0.5 tablets by mouth once daily.Disp: 45 tabletRfl: 3 REVIEW OF SYSTEMS: GENERAL: negative for: fevers, chills, and change in weight HEENT: negative for: headaches, hearing loss, difficulty swallowing, visual changes, nose bleeds, dentures, own teeth SKIN: rashes, lesions, and ulcers RESPIRATORY: SEE HPI CARDIOVASCULAR: See HPI GASTROINTESTINAL: negative for: abdominal pain, nausea, vomiting, difficulty or painful swallowing, and melanotic stools GENITOURINARY: negative for: dysuria, frequency, nocturia, and male potency MUSCULOSKELETAL: negative for: joint pain, joint swelling, muscle pain or myalgias, and pain with walking NEUROLOGIC: negative for: numbness, tingling, and sensation of pins and needles HEMATOLOGY: negative for: bruising easily, prolonged bleeding, anemia, and cancer ENDOCRINE: negative for: cold or heat intolerance, polyuria, polydipsia, goiter, diabetes, and thyroid disease PSYCH: negative for: sleep disturbance, mood disorders, and recent psychosocial stressors PHYSICAL EXAMINATION: 07/18/24 1528 BP: 146/86 BP Site: Left Arm BP Position: Sitting BP Cuff Size: Regular Adult Pulse: 85 Weight: 83.6 kg (184 lb 4.9 oz) Height: 172.7 cm (5' 8) General: Well appearing, in no acute distress, speaking in complete sentences. Inappropriate affect at times Skin: No clubbing, no cyanosis. Head/Eyes: Extra ocular movements intact Mouth: poor dentition Neck: No jugular venous distention, positive right-sided carotid bruits, carotids have a normal upstroke, no palpable thyromegaly. Lungs: Clear to auscultation and no rales Heart: Regular rhythm, PMI not displaced, S1, S2 normal, no S3, no S4, no (more content not included)...[facility]10-17-2024 History of Present illness Narrative* George Noriega MD - 07/18/2024 3:41 PM EDT Images from the original note were not included. Heart, Vascular and Thoracic [place] [facility] Department of Cardiovascular Medicine SECTION OF INTERVENTIONAL CARDIOLOGY OUTPATIENT VISIT DATE 07/18/2024 OUTPATIENT VISIT TYPE Established PRIMARY CARE PHYSICIAN: Awilda Garcia [address] [place] [address] REFERRING PHYSICIAN: Awilda Garcia [address] [facility] [address] CHIEF COMPLAINT: Patient presents with: Consult HISTORY OF PRESENT ILLNESS: Prior Visit 02/15/2023: Mr. Michel is a 57 year old male who presents today for evaluation of chest pain. Patient notesthat every time he exerts himself he gets short of breath and has chest pain that radiates down theleft jaw and left arm and is completely alleviated with rest after 10 to 15 minutes. The patient cannot accurately state when the symptom started, but he states that he has had the symptoms for months without having worsening or increasing frequency recently. Patient denies any chest pain at rest, diaphoresis, nausea or vomiting. He also notes that he has Palmer class III intermittent claudication worse in the left leg than the right. Prior Visit 05/18/2023: The patient reports marked improvement in his symptoms since being started on 2 antianginals. He denies any further chest heaviness with exertion. The patient also underwent nuclear stress testing that did not show evidence of ischemia and echocardiogram showed preserved ejection fraction without wall motion abnormalities. Furthermore his SCOTT PVR did not show evidence of peripheral vascular disease and his carotid duplex showed minimal carotid artery stenosis. Risk factors for coronary artery disease hypertension Current Visit 07/18/2024: Patient reports two episodes of chest pain with exertion lasting 5 minutes despite dual antianginaltherapy. He denies orthopnea, PND, palpitations, lightheadedness, syncope, leg swelling, cough, and wheezing. Diet / Nutrition: Reports heart healthy diet Weight: no change since last visit Exercise: As above. SOCIAL HISTORY Social History Tobacco Use Smoking status: Never Smokeless tobacco: Never Substance Use Topics Alcohol use: Never Drug use: Never ALLERGIES: ALLERGIES No Known Allergies MEDICATIONS: lisinopril-hydroCHLOROthiazide (ZESTORETIC) 20-12.5 mg per tablet^take 1 tablet by mouth once daily^Disp: 90 tablet^Rfl: 2 HYDROcodone-acetaminophen (NORCO) 5-325 mg per tablet^Take by mouth.^Disp: ^Rfl: naproxen (NAPROSYN) 500 mg tablet^Take 500 mg by mouth twice daily.^Disp: ^Rfl: amLODIPine (NORVASC) 10 mg tablet^20 mg.^Disp: ^Rfl: omeprazole (PRILOSEC) 20 mg capsule^Take by mouth.^Disp: ^Rfl: fluticasone-salmeterol (ADVAIR, WIXELA) 250-50 mcg/dose inhaler^Inhale as instructed.^Disp: ^Rfl: acetaminophen (TYLENOL EXTRA STRENGTH ORAL)^Take by mouth.^Disp: ^Rfl: albuterol HFA (VENTOLIN HFA) 90 mcg/actuation inhaler^Inhale 2 Puffs as instructed every 4 hours asneeded for Wheezing/Shortness of Breath.^Disp: 1 Inhaler^Rfl: 0 metoprolol succinate ER (TOPROL XL) 25 mg 24 hr tablet^Take 0.5 tablets by mouth once daily.^Disp: 45 tablet^Rfl: 3 REVIEW OF SYSTEMS: GENERAL: negative for: fevers, chills, and change in weight HEENT: negative for: headaches, hearing loss, difficulty swallowing, visual changes, nose bleeds, dentures, own teeth SKIN: rashes, lesions, and ulcers RESPIRATORY: SEE HPI CARDIOVASCULAR: See HPI GASTROINTESTINAL: negative for: abdominal pain, nausea, vomiting, difficulty or painful swallowing,and melanotic stools GENITOURINARY: negative for: dysuria, frequency, nocturia, and male potency MUSCULOSKELETAL: negative for: joint pain, joint swelling, muscle pain or myalgias, and pain with walking NEUROLOGIC: negative for: numbness, tingling, and sensation of pins and needles HEMATOLOGY: negative for: bruising easily, prolonged bleeding, anemia, and cancer ENDOCRINE: negative for: cold or heat intolerance, polyuria, polydipsia, goiter, diabetes, and thyroid disease PSYCH: negative for: sleep disturbance, mood disorders, and recent psychosocial stressors PHYSICAL EXAMINATION: 07/18/24 1528 BP: 146/86 BP Site: Left Arm BP Position: Sitting BP Cuff Size: Regular Adult Pulse: 85 Weight: 83.6 kg (184 lb 4.9 oz) Height: 172.7 cm (5' 8) General: Well appearing, in no acute distress, speaking in complete sentences. Inappropriate affectat times Skin: No clubbing, no cyanosis. Head/Eyes: Extra ocular movements intact Mouth: poor dentition Neck: No jugular venous distention, positive right-sided carotid bruits, carotids have a normal upstroke, no palpable thyromegaly. Lungs: Clear to auscultation and no rales Heart: Regular rhythm, PMI not displaced, S1, S2 normal, no S3, no S4, no heaves, no rub and no murmur. Abdomen: Soft, nontender, bowel sounds normal, no palpable organomegaly, no bruits. Musculoskeletal: Normal gait and ambulation Neuro: Oriented to time, place and person Peripheral Arterial Exam Location Right Left Carotid + Bruit No Bruit Femoral 2+/2+ 2+/2+ Popliteal 2+/2+ 2+/2+ Dorsalis Pedis 1+/2+ 1/2+ Posterior Tibial 1+/2+ 2+/2+ High Abdomen No bruit Low Abdomen No Bruit CARDIOVASCULAR MEDICINE TESTING: Electrocardiogram: normal sinus rhythm, LVH Laboratory: LDL 122, total cholesterol 182, creatinine 1.14, hemoglobin 14.8, platelets 329 Nuclear Stress test : CONCLUSIONS:04/17/2023 1. SPECT Perfusion Study: Normal. 2. There is no scintigraphic evidence for inducible ischemia. 3. No evidence of scarred myocardium. 4. Left ventricle is normal in size. The left ventricle systolic function is normal. 5. Right ventricle is normal in size. The right ventricle systolic function is normal. 6. This is a low risk scan. Gated Stress FBP LVEF % 63 Carotid duplex: IMPRESSION RIGHT SIDE Common carotid artery: Plaque visualized without evidence of hemodynamically significant stenosis. Internal carotid artery: 20-39% stenosis. Vertebral artery: Patent and antegrade flow noted. Subclavian artery: Plaque visualized without evidence of hemodynamically significant stenosis. LEFT SIDE Common carotid artery: Plaque visualized without evidence of hemodynamically significant stenosis. Internal carotid artery: 20-39% stenosis. Vertebral artery: Patent and antegrade flow noted. High resistive signal suggests non-dominant vessel or more distal disease; clinical correlation is suggested. Technologist: Yvette Romeo RVT Ordering physician: GEORGE NORIEGA Interpreting physician: Ben Devine MD, RVT T/PVR: IMPRESSION RIGHT SIDE Resting right ankle brachial index: 1.15 Normal ankle brachial index at rest in the right leg. Right ankle: Normal at rest. Right small vessel disease versus vasoconstriction. LEFT SIDE Resting left ankle brachial index: 1.10 Normal ankle brachial index at rest in the left leg. Left ankle: Normal at rest. Technologist: Yvette Romeo RVT Ordering physician: GEORGE NORIEGA Interpreting physician: Ben Devine MD, RVT I have personally reviewed the Electrocardiogram, nuclear stress test nonpatent, SCOTT/PVR, carotid duplex and Laboratory Testing. IMPRESSION: Mr. Michel is a 59 year old male who initially presented with typical chest pain most likely stable coronary artery disease in setting of hypertension, which had improved with control of his hypertension on 2 antianginals, but now with recurrence despite antianginal therapy. Will need cardiac catheterization at this time to further define the anatomy. 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 Monitor for bradycardia, lightheadedness, dizziness, hypotension, hyperglycemia - Continue with amlodipine 10 mg p.o. daily as second antianginal and goal blood pressure less demx164/80 - Continue with hydrochlorothiazide/lisinopril combo pill as prescribed goal blood pressure less than 130/80 - Continue aspirin 81 mg p.o. daily and high intensity statin. Patient instructed to monitor for myalgias, right upper quadrant pain, urinary discoloration and bleeding diatheses - Patient not willing to be further evaluated by psychiatry -Heart healthy diet counseling performed -age and risk appropriate malignancy screening per PCP -if patient has recurrent or worsening symptoms, patient is instructed to come to the ED or call 911 -patient understands and agrees with the plan - Return to clinic in 3 months CONTACT INFORMATION: George Noriega M.D. Section of Interventional Cardiology & Endovascular Interventions [facility] Department of Cardiovascular Medicine Heart, Vascular and Thoracic [place] [facility] Office Office Pager [phone] This note was partially generated using [employer] voice recognition system, and there may be some incorrect words, spellings, and punctuation that were not noted in checking the note before saving documented in this encounterK[facility]09-26-2024 Telephone encounter Note * Telephone Encounter - Liana Daly OCCA - 06/27/2024 4:[address] Shreya Cat's office asks if Dr Noriega is not going to refill this medication for patient, please advise if they should take over managing medication for patient. [phone]. OK to leave a detailed VM. Received request for refill of the following medications: Requested Prescriptions Pending Prescriptions Disp Refills rosuvastatin (CRESTOR) 20 mg tablet 90 tablet 3 Sig: Take 1 tablet by mouth daily at bedtime. Patient requested a 90 day refill. Pharmacy verified and updated accordingly. Patient was last seen in cardiology office: 05-18-2023. Upcoming appointment scheduled: 07-18-2024. Labs: Hemoglobin (g/dL) Date Value 12/22/2023 13.0 Hematocrit (%) Date Value 12/22/2023 42.5 WBC (k/uL) Date Value 12/22/2023 8.40 Platelet Count (k/uL) Date Value 12/22/2023 285 Creatinine Date Value Ref Range Status 12/22/2023 0.99 0.73 - 1.22 mg/dL Final 01/31/2023 1.14 0.73 - 1.22 mg/dL Final [facility]09-26-20[facility] Miscellaneous Notes* Telephone Encounter - Liana Daly OCCA - 06/27/2024 4:[address] Shreya Cat's office asks if Dr Noriega is not going to refill this medication for patient, please advise if they should take over managing medication for patient. [phone]. OK to leave a detailed VM. Received request for refill of the following medications: Requested Prescriptions Pending Prescriptions Disp Refills rosuvastatin (CRESTOR) 20 mg tablet 90 tablet 3 Sig: Take 1 tablet by mouth daily at bedtime. Patient requested a 90 day refill. Pharmacy verified and updated accordingly. Patient was last seen in cardiology office: 05-18-2023. Upcoming appointment scheduled: 07-18-2024. Labs: Hemoglobin (g/dL) Date Value 12/22/2023 13.0 Hematocrit (%) Date Value 12/22/2023 42.5 WBC (k/uL) Date Value 12/22/2023 8.40 Platelet Count (k/uL) Date Value 12/22/2023 285 Creatinine Date Value Ref Range Status 12/22/2023 0.99 0.73 - 1.22 mg/dL Final 01/31/2023 1.14 0.73 - 1.22 mg/dL Final * Telephone Encounter - Brinda Reddy - 06/27/2024 2:20 PM EDT Prescription Refill Information Dr Shreya Cat's office asks if Dr Noriega is not going to refill this medication for patient, please advise if they should take over managing medication for patient. [phone]. OK to leave a detailed VM. The patient has been identified by name and date of : Yes Caregiver verified no other encounters exist for this prescription request: Yes Caregiver confirmed with patient/requestor that no other refills are due, in the near future, with this provider at this time: Yes The last office visit in the department: 05/18/23 Does the patient have a future office visit with this provider/department: Yes Requested Prescriptions Pending Prescriptions Disp Refills rosuvastatin (CRESTOR) 20 mg tablet 90 tablet 3 Sig: Take 1 tablet by mouth daily at bedtime. Brinda Reddy June 27, 2024 2:23 PM documented in this encounterK[facility]09-26-2024 Telephone encounter Note * Telephone Encounter - Brinda Reddy - 06/27/2024 2:20 PM EDT Prescription Refill Information Dr Shreya Cat's office asks if Dr Noriega is not going to refill this medication for patient, please advise if they should take over managing medication for patient. [phone]. OK to leave a detailed VM. The patient has been identified by name and date of : Yes Caregiver verified no other encounters exist for this prescription request: Yes Caregiver confirmed with patient/requestor that no other refills are due, in the near future, with this provider at this time: Yes The last office visit in the department: 05/18/23 Does the patient have a future office visit with this provider/department: Yes Requested Prescriptions Pending Prescriptions Disp Refills rosuvastatin (CRESTOR) 20 mg tablet 90 tablet 3 Sig: Take 1 tablet by mouth daily at bedtime. Brinda Reddy June 27, 2024 2:23 PM [facility]09-06-2024 Telephone encounter Note* Telephone Encounter - Liana Daly OCCA - 06/07/2024 9:39 AM EDT Received request for refill of the following medications: Requested Prescriptions Pending Prescriptions Disp Refills aspirin, enteric coated (ASPIRIN, ENTERIC COATED) 81 mg EC tablet [Pharmacy Med Name: ASPIRIN EC 81MG TABLET] 90 tablet 4 Sig: take one tablet by mouth daily Patient requested a 90 day refill. Pharmacy verified and updated accordingly. Patient was last seen in cardiology office: 05-18-2023. Upcoming appointment scheduled: 07-18-2024. Labs: Hemoglobin (g/dL) Date Value 12/22/2023 13.0 Hematocrit (%) Date Value 12/22/2023 42.5 WBC (k/uL) Date Value 12/22/2023 8.40 Platelet Count (k/uL) Date Value 12/22/2023 285 Creatinine Date Value Ref Range Status 12/22/2023 0.99 0.73 - 1.22 mg/dL Final 01/31/2023 1.14 0.73 - 1.22 mg/dL Final [facility]09-06-2024 Miscellaneous Notes* Telephone Encounter - Liana Daly OCCA - 06/07/2024 9:39 AM EDT Received request for refill of the following medications: Requested Prescriptions Pending Prescriptions Disp Refills aspirin, enteric coated (ASPIRIN, ENTERIC COATED) 81 mg EC tablet [Pharmacy Med Name: ASPIRIN EC 81MG TABLET] 90 tablet 4 Sig: take one tablet by mouth daily Patient requested a 90 day refill. Pharmacy verified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 albuterol HFA (VENTOLIN HFA) 90 mcg/actuation inhaler^Inhale 2 Puffs as instructed every 4 hours asneeded for wheezing/shortness of breath.^Disp: 1 Each^Rfl: 1 fluticasone-salmeterol (ADVAIR, WIXELA) 250-50 mcg/dose inhaler^Inhale as instructed.^Disp: ^Rfl: acetaminophen (TYLENOL EXTRA STRENGTH ORAL)^Take by mouth.^Disp: ^Rfl: REVIEW OF SYSTEMS: HEENT: See HPI RESPIRATORY: See HPI CONSTITUTIONAL: No acute distress. No weight loss or gain, no fevers or chills CARDIOVASCULAR: negative for chest pain, leg swelling or palpitations. GASTROINTESTINAL: Negative for abdominal discomfort, No blood in stools or black stools MUSCULOSKELETAL: negative for joint pain or swelling, back pain or muscle pain. NEUROLOGIC:Negative for focal numbness or weakness, headaches and dizziness or syncope. DERM/SKIN: no new rashes, hives, or skin eruptions. PSYCHIATRIC: Negative for sleep disturbance, mood disorder and recent psychosocial stressors HEMATOLOGIC/LYMPHATIC/IMMUNOLOGIC:Negative for cold or heat intolerance, polyuria, polydipsia and goiter. PHYSICAL EXAM: BP 120/82 Pulse 89 Wt 175 lb (79.4kg) SpO2 98% General: Awake, alert, cooperative, NAD Head: Normocephalic, atraumatic Eyes: PERRL, EOMI, no exudates, no hemorrhage, no scleral injection, no icterus, no allergic shiners Ears: Ear canals clear, TM's clear bilaterally with normal light reflex Nose: No external lesions, septum midline, normal mucosa, clear drainage, no traverse nasal crease,no polyps noted, sinuses non tender on palpation Oropharynx: MMM, no cobblestoning of mucosa, no tonsillar hypertrophy or erythema, uvula midline, no tongue swelling, no ulcerations Neck: Supple, no lymphadenopathy Lung: Breathing comfortably, diminished air movement bilaterally, no wheezes, no crackles Cardiovascular: RRR, normal S1 and S2, no murmur Abdomen: Soft, non-tender, nondistended Extremities: Warm and well perfused Skin: Normal turgor, no rashes Neuropsych: Alert, oriented x3, normal gait DATA: CBC Latest Ref Rng & Units 01/08/2022 03/08/2022 01/31/2023 WBC 3.70 - 11.00 k/uL 9.23 8.77 8.00 RBC 4.20 - 6.00 m/uL 5.19 5.42 5.35 HEMOGLOBIN 13.0 - 17.0 g/dL 14.8 15.0 14.8 HEMATOCRIT 39.0 - 51.0 % 45.4 46.6 46.8 MCV 80.0 - 100.0 fL 87.5 86.0 87.5 MCH 26.0 - 34.0 pg 28.5 27.7 27.7 MCHC 30.5 - 36.0 g/dL 32.6 32.2 31.6 RDW-CV 11.5 - 15.0 % 12.8 13.0 13.2 PLATELETS 150 - 400 k/uL 262 300 329 MPV 9.0 - 12.7 fL 10.9 10.6 10.7 BASO% % 0.5 0.5 1.1 ABS NEUT (ANC) 1.45 - 7.50 k/uL 4.54 5.62 4.52 ABS LYMPH 1.00 - 4.00 k/uL 3.59 2.32 2.58 ABS MONO <0.87 k/uL 0.80 0.68 0.68 ABS EOSIN <0.46 k/uL 0.21 0.08 0.11 ABS BASO <0.11 k/uL 0.05 0.04 0.09 NRBC /100 WBC 0.0 0.0 0.0 CBC Latest Ref Rng & Units 01/08/2022 03/08/2022 01/31/2023 WBC 3.70 - 11.00 k/uL 9.23 8.77 8.00 RBC 4.20 - 6.00 m/uL 5.19 5.42 5.35 HEMOGLOBIN 13.0 - 17.0 g/dL 14.8 15.0 14.8 HEMATOCRIT 39.0 - 51.0 % 45.4 46.6 46.8 MCV 80.0 - 100.0 fL 87.5 86.0 87.5 MCH 26.0 - 34.0 pg 28.5 27.7 27.7 MCHC 30.5 - 36.0 g/dL 32.6 32.2 31.6 RDW-CV 11.5 - 15.0 % 12.8 13.0 13.2 PLATELETS 150 - 400 k/uL 262 300 329 MPV 9.0 - 12.7 fL 10.9 10.6 10.7 BASO% % 0.5 0.5 1.1 ABS NEUT (ANC) 1.45 - 7.50 k/uL 4.54 5.62 4.52 ABS LYMPH 1.00 - 4.00 k/uL 3.59 2.32 2.58 ABS MONO <0.87 k/uL 0.80 0.68 0.68 ABS EOSIN <0.46 k/uL 0.21 0.08 0.11 ABS BASO <0.11 k/uL 0.05 0.04 0.09 NRBC /100 WBC 0.0 0.0 0.0 Allergy Skin Testing I personally reviewed this patient's results and interpreted the results as follows: 05/15/2023 Prick testing positive to weeds. Pulmonary Function Testing 05/15/2023 IMPRESSION: Spirometry shows no obstruction. The reduced FVC suggests restriction. CTA Chest W/WO Contrast 02/08/2023: NM CARDIAC STRESS/PHARM: CONCLUSIONS: 1. SPECT Perfusion Study: Normal. 2. There is no scintigraphic evidence for inducible ischemia. 3. No evidence of scarred myocardium. 4. Left ventricle is normal in size. The left ventricle systolic function is normal. 5. Right ventricle is normal in size. The right ventricle systolic function is normal. 6. This is a low risk scan. Gated Stress FBP LVEF % 63 Assessment/Recommendations: 1. Shortness of breath 2. Dyspnea on exertion 3. Asthma 4. Reduced FVC 5. History of blunt trauma to chest, subsequent encounter 6. Atelectasis 7. Hypoxemia Comment: His respiratory symptoms are likely multifactorial. Asthma seems to be partially responsible. Spirometry has reduced FVC which will need further evaluation with full PFTs. He does have a history of chest wall trauma in the which could be responsible for extrinsic pulmonary restriction and atelectasis noted on recent CT chest. -Start Symbicort 160-4.5 2 puffs twice daily via spacer -Check full PFTs with DLCO -Check IGE BLD; CBC + DIFF -CONSULT TO PULM/CRITICAL CARE -Continue Albuterol 2 puffs every 4 hours as needed 7. Gastroesophageal reflux disease with esophagitis without hemorrhage 8. Hiatal hernia -Follows with GI -Continue PPI BID 9. Allergic rhinitis due to weed pollen -Start Cetirizine 10 mg daily 10. Immunization counseling -Give PCV20 at next visit Follow-up in 6 weeks - patient will return sooner should new symptoms or problems arise. I spent a total of 65 minutes on the date of the service which included preparing to see the patient, [id number] patient care, completing clinical documentation, obtaining and/or reviewing separately obtained history, performing a medically appropriate examination, counseling and educating the pat ient/family/caregiver, ordering medications, tests, or procedures, communicating with other HCPs (not separately reported), independently interpreting results (not separately reported), communicatingresults to the patient/family/caregiver, and care coordination (not separately reported). Leyla Tam M.D. Allergy and Clinical Immunology [facility] documented in this encounterK[facility]08-14-[facility]23 History of Present illness Narrative* Jose Case RRT - 05/15/2023 1:58 PM EDT Pt unable to perform exhaled nitric oxide test despite multiple attempts. documented in this encounterK[facility]08-14-2023 History of Present illness Narrative* Jose Case RRT - 05/15/2023 1:50 PM EDT PULM FUNCTION SMARTBLOCK: Provider: Leyla Tam MD Assisting Tech: Jose Case RRT Spirometry w/BD: 1 documented in this encounterK[facility]07-28-2023 Miscellaneous Notes* Telephone Encounter - Mireya Handy RN - 04/28/2023 11:39 AM EDT No microorganisms compatible with Helicobacter Pylori like organisms are identified by routine H&E-stained sections. Further advised pt the HP stain was negative. Another physician had advised him otherwise. Pt states understanding this is truly negative. Please set up non-urgent follow up office visit. Thank you Mireya Handy RN * Telephone Encounter - Mireya Handy RN - 04/28/2023 11:39 AM EDT ----- Message from Sebastian Abdalla Jr., DO sent at 04/27/2023 12:51 PM EDT ----- Maintain omeprazole for gastritis, h.pylori appears negative, followup office. Sebastian L Hykes Jr., DO ----- Message ----- From: Edith Camarena MA Sent: 04/27/2023 12:47 PM EDT To: Sebastian Abdalla Jr., DO Hi Dr. Abdalla We just wanted to make sure this reached you. Thanks ----- Message ----- From: Roby Mock MD Sent: 04/26/2023 3:15 PM EDT To: [facility] [place] I had called patient and advises that EGD was abnormal, please informed patient stomach biopsies are positive for H. Pylori, patient to contact his GI doctor to discuss treatment. Roby Mock MD documented in this encounterK[facility]07-25-2023 Nurse Note* Mel Rizvi RN - 04/25/2023 11:35 AM EDT Emili at bedside to speak with patient [facility]07-25-2023 Nurse Note* Mel Rizvi RN - 04/25/2023 11:35 AM EDT Emili at bedside to speak with patient documented in this encounterK[facility]07-25-2023 History and physical note * Roby Mock MD - 04/25/2023 10:45 AM EDT HISTORY AND PHYSICAL Cash Michel, 58 year old male here for EGD to evaluate dysphagia and history of hiatal hernia Current history and physical on file: Yes Is a new History and Physical required for today's visit? Yes Indication for procedure: Dysphagia PROCEDURE(S) SCHEDULED FOR: Esophago gastro duodenoscopy with herapy BASELINE BEHAVIOR: Calm BASELINE ORIENTATION: A & O x3 All medications and allergies reviewed: Yes Skin Assessment: Warm dry muscus membranes pink Airway/Respiratory Assessment: Airway: visualization of the uvula- Yes Mouth: opening greater than 2 fingerbreadths- Yes Neck: full range of motion- Yes Breath sounds clear/equal- Yes Cardiac Assessment: Regular rate and rhythm without murmur Abdominal Assessment: Abdomen soft, non-tender, no masses or organomegaly. Sedation Plan: Deep Additional Comments: None Roby Mock MD [facility]07-25-2023 History and physical note* Roby Mock MD - 04/25/2023 10:45 AM EDT HISTORY AND PHYSICAL Cash Michel, 58 year old male here for EGD to evaluate dysphagia and history of hiatal hernia Current history and physical on file: Yes Is a new History and Physical required for today's visit? Yes Indication for procedure: Dysphagia PROCEDURE(S) SCHEDULED FOR: Esophago gastro duodenoscopy with herapy BASELINE BEHAVIOR: Calm BASELINE ORIENTATION: A & O x3 All medications and allergies reviewed: Yes Skin Assessment: Warm dry muscus membranes pink Airway/Respiratory Assessment: Airway: visualization of the uvula- Yes Mouth: opening greater than 2 fingerbreadths- Yes Neck: full range of motion- Yes Breath sounds clear/equal- Yes Cardiac Assessment: Regular rate and rhythm without murmur Abdominal Assessment: Abdomen soft, non-tender, no masses or organomegaly. Sedation Plan: Deep Additional Comments: None Roby Mock MD documented in this encounterK[facility]07-25-2023 Miscellaneous Notes* Result Encounter Note - Roby Mock MD - 04/25/2023 10:45 AM EDT I had called patient and advises that EGD was abnormal, please informed patient stomach biopsies are positive for H. Pylori, patient to contact his GI doctor to discuss treatment. Roby Mock MD documented in this encounter[address]25-2023 Progress note* Result Encounter Note - Roby Mock MD - 04/25/2023 10:45 AM EDT I had called patient and advises that EGD was abnormal, please informed patient stomach biopsies are positive for H. Pylori, patient to contact his GI doctor to discuss treatment. Roby Mock MD [facility]07-14-2023 Instructions* Patient Instructions* Sebastian Abdalla Jr., DO - 04/14/2023 2:42 PM EDT Increase omeprazole to 40 mg daily Setup for EGD documented in this encounterK[facility]07-14-2023 History of Present illness Narrative* Sebastian Abdalla Jr., DO - 04/14/2023 2:30 PM EDT Consultation requested by Awilda Garcia for an opinion regarding dysphagia. My final recommendationswill be communicated back to the requesting physician by way of shared Medical record or letter to requesting physician via US mail. Patient presents with: Throat Problem HPI: Cash Michel, 58 year old male, presents in the office today for dysphagia. History ofGERD and hiatal hernia having esophageal dysphagia at distal esophagus for the past year. Denies weight loss. Omeprazole provides some benefit. Never had an EGD or colonoscopy before. Family history of ulcer disease (father). Last CT scan was one year ago showing hiatal hernia. Past GI workup 12-20-2022 Dr Awilda Garcia Other dysphagia - ICD9: 787.29, ICD10: R13.19 - CONSULT TO GASTROENTEROLOGY Component Latest Ref Rng & Units 01/31/2023 WBC 3.70 - 11.00 k/uL 8.00 RBC 4.20 - 6.00 m/uL 5.35 Hemoglobin 13.0 - 17.0 g/dL 14.8 Hematocrit 39.0 - 51.0 % 46.8 MCV 80.0 - 100.0 fL 87.5 MCH 26.0 - 34.0 pg 27.7 MCHC 30.5 - 36.0 g/dL 31.6 RDW-CV 11.5 - 15.0 % 13.2 Platelet Count 150 - 400 k/uL 329 MPV 9.0 - 12.7 fL 10.7 Neut% % 56.4 Abs Neut (ANC) 1.45 - 7.50 k/uL 4.52 Lymph% % 32.3 Abs Lymph 1.00 - 4.00 k/uL 2.58 [place]% % 8.5 Abs [place] <0.87 k/uL 0.68 Eosin% % 1.4 Abs Eosin <0.46 k/uL 0.11 Baso% % 1.1 Abs Baso <0.11 k/uL 0.09 Immature Gran % % 0.3 IMMATURE GRANS (ABS) <0.10 k/uL <0.03 NRBC /100 WBC 0.0 Absolute nRBC <0.01 k/uL <0.01 DTYPE Auto Protein, Total 6.3 - 8.0 g/dL 7.5 Albumin 3.9 - 4.9 g/dL 4.2 Calcium 8.5 - 10.2 mg/dL 9.7 Bilirubin, Total 0.2 - 1.3 mg/dL 0.3 Alkaline Phosphatase 38 - 113 U/L 70 AST 14 - 40 U/L 19 ALT 10 - 54 U/L 16 Glucose 74 - 99 mg/dL 88 BUN 9 - 24 mg/dL 17 Creatinine 0.73 - 1.22 mg/dL 1.14 Sodium 136 - 144 mmol/L 139 Potassium 3.7 - 5.1 mmol/L 4.6 Chloride 97 - 105 mmol/L 106 (H) CO2 22 - 30 mmol/L 22 Anion Gap 9 - 18 mmol/L 11 eGFR >=60 mL/min/1.73m 74 TSH 0.270 - 4.200 mIU/L 1.860 PAST MEDICAL HISTORY Diagnosis Date Asthma Body mass index 26.0-26.9, adult Breast lump on left side at 11 o'clock position Breast pain CAD (coronary artery disease) Chest pain syndrome Intermittent chest pain for long time Cholecystolithiasis Dysphagia Gallstones Gastroesophageal reflux disease Hearing loss in right ear Hemoptysis Hiatal hernia HTN (hypertension) Impingement syndrome of left shoulder Mixed hyperlipidemia Rib pain Shortness of breath Steatosis, liver Transient loss of consciousness Urinary hesitancy PAST SURGICAL HISTORY Procedure Laterality Date RIGHT HEART CATHERIZATION 11/07/2003 Current Outpatient Medications on File Prior to Visit Medication Sig amLODIPine (NORVASC) 10 mg tablet Take 2 tablets by mouth once daily. lisinopril-hydroCHLOROthiazide (ZESTORETIC) 20-12.5 mg per tablet Take 1 tablet by mouth once daily. metoprolol succinate ER (TOPROL XL) 25 mg 24 hr tablet Take 0.5 tablets by mouth once daily. albuterol HFA (VENTOLIN HFA) 90 mcg/actuation inhaler Inhale 2 Puffs as instructed every 4 hours asneeded for wheezing/shortness of breath. HYDROcodone-acetaminophen (NORCO) 5-325 mg per tablet Take by mouth. naproxen (NAPROSYN) 500 mg tablet Take 500 mg by mouth twice daily. omeprazole (PRILOSEC) 20 mg capsule Take by mouth. fluticasone-salmeterol (ADVAIR, WIXELA) 250-50 mcg/dose inhaler Inhale as instructed. acetaminophen (TYLENOL EXTRA STRENGTH ORAL) Take by mouth. Current Facility-Administered Medications on File Prior to Visit Medication perflutren lipid microspheres 1.3 mL in NaCl (PF) 0.9% 10 mL injection (DEFINITY) sodium chloride 0.9 % (flush) 10 mL (BD POSIFLUSH) Allergies: No Known Allergies Review of Systems Constitutional: Negative for chills, fatigue and fever. HENT: Positive for trouble swallowing. Negative for hearing loss, nosebleeds and tinnitus. Eyes: Negative for visual disturbance. Respiratory: Negative for cough, shortness of breath and wheezing. Cardiovascular: Negative for chest pain and palpitations. Gastrointestinal: Negative for abdominal distention, abdominal pain, blood in stool, constipation, diarrhea, nausea and vomiting. Endocrine: Negative for polyphagia. Genitourinary: Negative for dysuria, frequency and hematuria. Musculoskeletal: Negative for arthralgias and joint swelling. Skin: Negative for pallor and rash. Neurological: Negative for dizziness, tremors, seizures, syncope and headaches. Hematological: Does not bruise/bleed easily. BP 124/84 Pulse 72 Wt 79.4 kg (175 lb) SpO2 99% BMI 28.25 kg/m Physical Exam Constitutional: General: He is not in acute distress. HENT: Mouth/Throat: Pharynx: Oropharynx is clear. Eyes: Conjunctiva/sclera: Conjunctivae normal. Cardiovascular: Rate and Rhythm: Normal rate and regular rhythm. Pulmonary: Effort: Pulmonary effort is normal. Breath sounds: Normal breath sounds. Abdominal: General: Bowel sounds are normal. There is no distension. Palpations: Abdomen is soft. Tenderness: There is no abdominal tenderness. There is no guarding or rebound. Musculoskeletal: General: No swelling. Skin: General: Skin is warm and dry. Coloration: Skin is not jaundiced. Neurological: Mental Status: He is alert. Mental status is at baseline. ASSESSMENT/PLAN: 58 y/o male with esophageal dysphagia, GERD, hiatal hernia. Increase omeprazole to 40 mg daily, proceed with EGD. Discussed colorectal cancer screening but he refuses aware of risks and benefits. 1. Hiatal hernia - ICD9: 553.3, ICD10: K44.9 (primary diagnosis) - OMEPRAZOLE 40 MG CAPSULE,DELAYED RELEASE - EGD DIAGNOSTIC 2. Esophageal dysphagia - ICD9: 787.29, ICD10: R13.19 - OMEPRAZOLE 40 MG CAPSULE,DELAYED RELEASE - EGD DIAGNOSTIC 3. Gastroesophageal reflux disease, unspecified whether esophagitis present - ICD9: 530.81, ICD10: K21.9 - OMEPRAZOLE 40 MG CAPSULE,DELAYED RELEASE - EGD DIAGNOSTIC 4. Screening for colorectal cancer - ICD9: V76.51, V76.41, ICD10: Z12.11, Z12.12 - recommended but patient refused Sebastian Abdalla Jr. documented in this encounterK[facility] History of Present illness Narrative* Jassi Wilson MD - 04/10/2023 3:59 PM EDT HISTORY AND PHYSICAL Cash Michel 1965 REFERRING PHYSICIAN: Shreya Cat, SURGICAL SALES REPRESENTATIVE-C [address] [address] CHIEF COMPLAINT: Consult (Gallstones referral) HPI: Cash is a 58 year old male with a complaint of right upper quadrant pain. The patient has had symptoms of right upper quadrant pain for few months. The symptoms have maintained, over the pastfew months. The pain does radiate to the back. Food does aggravate his symptoms. Alleviating factors include: none. The patient is being seen by me today at the request of Dr. Cat for my opinion and advice regarding Calculus of gallbladder with chronic cholecystitis without obstruction (primary encounter diagnosis) Ruq pain. SIGNIFICANT MEDICAL PROBLEMS: PAST MEDICAL HISTORY Diagnosis Date Asthma Body mass index 26.0-26.9, adult Breast lump on left side at 11 o'clock position Breast pain CAD (coronary artery disease) Chest pain syndrome Intermittent chest pain for long time Cholecystolithiasis Dysphagia Gallstones Gastroesophageal reflux disease Hearing loss in right ear Hemoptysis Hiatal hernia HTN (hypertension) Impingement syndrome of left shoulder Mixed hyperlipidemia Rib pain Shortness of breath Steatosis, liver Transient loss of consciousness Urinary hesitancy OPERATIONS: PAST SURGICAL HISTORY Procedure Laterality Date RIGHT HEART CATHERIZATION 11/07/2003 CURRENT MEDICATIONS: Current Outpatient Medications Medication Sig Dispense Refill amLODIPine (NORVASC) 10 mg tablet Take 2 tablets by mouth once daily. 180 tablet 0 lisinopril-hydroCHLOROthiazide (ZESTORETIC) 20-12.5 mg per tablet Take 1 tablet by mouth once daily. 90 tablet 2 metoprolol succinate ER (TOPROL XL) 25 mg 24 hr tablet Take 0.5 tablets by mouth once daily. 45 tablet 3 albuterol HFA (VENTOLIN HFA) 90 mcg/actuation inhaler Inhale 2 Puffs as instructed every 4 hours asneeded for wheezing/shortness of breath. 1 Each 1 HYDROcodone-acetaminophen (NORCO) 5-325 mg per tablet Take by mouth. naproxen (NAPROSYN) 500 mg tablet Take 500 mg by mouth twice daily. omeprazole (PRILOSEC) 20 mg capsule Take by mouth. fluticasone-salmeterol (ADVAIR, WIXELA) 250-50 mcg/dose inhaler Inhale as instructed. acetaminophen (TYLENOL EXTRA STRENGTH ORAL) Take by mouth. Current Facility-Administered Medications Medication Dose Route Frequency Provider Last Rate Last Admin perflutren lipid microspheres 1.3 mL in NaCl (PF) 0.9% 10 mL injection (DEFINITY) INTRAVENOUS DIRECTED PRN George Noriega MD sodium chloride 0.9 % (flush) 10 mL (BD POSIFLUSH) 10 mL INTRAVENOUS DIRECTED PRN George Noriega MD ALLERGIES: Patient has no known allergies. PERSONAL HISTORY: Social History Tobacco Use Smoking status: Never Smokeless tobacco: Never Vaping Use Vaping Use: Never used Substance Use Topics Alcohol use: Never Drug use: Never FAMILY HISTORY: FAMILY HISTORY Problem Relation Age of Onset Diabetes Mother Heart disease Mother other (CHF) Mother Hypertension Mother Kidney Disease Mother Heart disease Father [address] [place] at age 83 Hypertension Father Parkinson s Disease Brother REVIEW OF SYMPTOMS: The review of systems data was entered by the nurse and reviewed by me There are no exam notes on file for this visit. PHYSICAL EXAMINATION: General: The patient is 58 year old male, well nourished, well hydrated in no acute distress. The patient is oriented to time, place, and person. VITALS: Blood pressure 130/80, pulse 99, temperature 36.7 C (98.1 F), height 167.6 cm (5' 6), weight 78.3 kg (172 lb 9.6 oz), SpO2 99 %. Body mass index is 27.86 kg/m . HEENT: Normal cephalic, ataumatic, pupils are equally round, sclera are anicteric, mucous membranesare moist, oropharynx is clear. Neck has no masses, asymmetry or lymphadenopathy. Thyroid is unremarkable. Respiratory: Clear to auscultation and percussion. Normal respiratory excursion and pattern. Cardiac: Examination is regular rate and rhythm. Abdominal exam: Normoactive bowel sounds, Soft, tender in the right upper quadrant negative Macdonald's sign, with no palpable masses. No hepatosplenomegaly. No palpable hernias. Rectal exam: exam deferred Extremities: no clubbing, cyanosis or edema. No adenopathy. Other: LABORATORY VALUES: As Noted RADIOLOGIC STUDIES: As Noted Above Assessment IMPRESSION: Calculus of gallbladder with chronic cholecystitis without obstruction (primary encounter diagnosis) Ruq pain PLAN: My plan is to perform a laparoscopic cholecystectomy with intraoperative choleangiogram. The planned surgical procedure was discussed extensively with the patient. The risks, benefits, anticipated outcomes and possible complications were mentioned. My staff has also explained the procedure in understandable terms and the patient was given the option to take printed material concerning the planned procedure. The patient had the opportunity to ask questions concerning the planned procedure.The patient freely consents to the planned procedure. Planned Procedure: LAPAROSCOPIC CHOLECYSTECTOMY WITHOUT INTRAOPERATIVE CHOLEANGIOGRAM - [id number] Planned antibiotic: Ancef 2gm IVPB inspector heating and refrigeration to OR SCDs needed - Yes Scaffold Worker Needed - Yes Diagnoses: (K80.10) Calculus of gallbladder with chronic cholecystitis without obstruction (primaryencounter diagnosis) (R10.11) RUQ pain A letter was sent to Dr. Cat indicating the above finding for this patient. Jassi Wilson III, MD documented in this encounterK[facility] History of Past illness Narrative* Problem Noted Date Diagnosed Date Resolved Date Cardiomyopathy 04/07/2023 05/18/2023 documented as of this encounter (statuses as of 06/06/2023) [address]07-2023 History of Past illness Narrative* Problem Noted Date Diagnosed Date Resolved Date Cardiomyopathy 04/07/2023 05/18/2023 documented as of this encounter (statuses as of 08/06/2023) [address]07-2023 History of Past illness Narrative* Problem Noted Date Diagnosed Date Resolved Date Cardiomyopathy 04/07/2023 05/18/2023 documented as of this encounter (statuses as of 08/23/2023) [facility]07-07-[facility] History of Past illness Narrative* Problem Noted Date Diagnosed Date Resolved Date Cardiomyopathy 04/07/2023 05/18/2023 documented as of this encounter (statuses as of 08/30/2023) [address]07-2023 History of Past illness Narrative* Problem Noted Date Diagnosed Date Resolved Date Cardiomyopathy 04/07/2023 05/18/2023 documented as of this encounter (statuses as of 11/03/2023) [address]07-2023 History of Past illness Narrative* Problem Noted Date Diagnosed Date Resolved Date Cardiomyopathy 04/07/2023 05/18/2023 documented as of this encounter (statuses as of 11/07/2023) [address]07-2023 History of Past illness Narrative* Problem Noted Date Diagnosed Date Resolved Date Cardiomyopathy 04/07/2023 05/18/2023 documented as of this encounter (statuses as of 11/07/2023) [address]07-2023 History of Past illness Narrative* Problem Noted Date Diagnosed Date Resolved Date Cardiomyopathy 04/07/2023 05/18/2023 documented as of this encounter (statuses as of 11/07/2023) [address]07-2023 History of Past illness Narrative* Problem Noted Date Diagnosed Date Resolved Date Cardiomyopathy 04/07/2023 05/18/2023 documented as of this encounter (statuses as of 11/09/2023) [address]07-2023 History of Past illness Narrative* Problem Noted Date Diagnosed Date Resolved Date Cardiomyopathy 04/07/2023 05/18/2023 documented as of this encounter (statuses as of 11/09/2023) [address]07-2023 History of Past illness Narrative* Problem Noted Date Diagnosed Date Resolved Date Cardiomyopathy 04/07/2023 05/18/2023 documented as of this encounter (statuses as of 12/08/2023) [address]07-2023 History of Past illness Narrative* Problem Noted Date Diagnosed Date Resolved Date Cardiomyopathy 04/07/2023 05/18/2023 documented as of this encounter (statuses as of 12/22/2023) [facility]07-05-2023 Miscellaneous Notes* Telephone Encounter - Abimbola Partida PTA - 04/05/2023 3:17 PM EDT Attempted to call patient regarding 3 no shows and policy to cancel future appointments. Phone number does not work documented in this encounterK[facility]07-03-[facility] History of Present illness Narrative* Nia Clay - 04/03/2023 5:03 PM EDT Opened in error documented in this encounterKet[facility]07-03-2023 Miscellaneous Notes* Telephone Encounter - Paradise Jackson Ma - 04/03/2023 4:30 PM EDT Left message with brother to call office back and schedule below. Please contact the patient to schedule an appointment. Appointment specifications include: WHY does the patient need to be seen? pulm WHO should the patient schedule the appointment with? First provider available WHAT specific type of appointment is needed? consult WHEN should the patient be seen? First available appointment WHERE should the patient be seen? No Preference * Telephone Encounter - Prashanth Luna APRN.CNP - 04/02/2023 10:06 AM EDT Referral placed to pulm; please assist with scheduling. Prashanth Luna APRN.CNP * Telephone Encounter - Viviane Clay - 2023 10:24 AM EDT Cash David Michel is calling Awilda Garcia MD today to request Referral Request to be seen by pulmonology. Patient has been identified by name and birthdate. Duration of symptoms: N/A Person calling: self Call patient at: on cell [phone] (home) [phone] (cell) Was an appointment scheduled: No Closing statement: Results or non-symptom based questions: Thank you for calling [facility], your call will be returned within the next business day. Viviane Junior Pss documented in this encounterK[facility]06-28-2023 Miscellaneous Notes* Telephone Encounter - Genia Castañeda PT - 03/29/2023 10:09 AM EDT Attempted to call pt to schedule recheck visit as he did not schedule upon departure yesterday. Phone listed is not active. documented in this encounterKettering [facility]06-27-2023 NoteHNO ID: [id number] Author: Abimbola Partida PTA Service: ? Author Type: Repair Table Operator Type: Progress Notes Filed: 03/28/2023 5:20 PM Note Text: Episode Visit Count: 7 Therapist That Will Accept/Oversee The Plan Of Care: Genia Castañeda Start of Care Date: 01/05/23 Plan of Care Certification Date: 03/01/23 Next Certification Due Date: 04/30/23 Patient Identified by Name and Date of : Yes REHABILITATION AND SPORTS THERAPY PHYSICAL THERAPY TREATMENT NOTE ASSESSMENT: Cash A Erikayocasta tolerated the session with expected muscle soreness. Patient is unable to retract cervical spine to touch wall when scapula and hips are against wall. He demonstrated difficulty with performing resisted rows and active left shoulder flexion . The patient will continue to benefit from ongoing skilled physical therapy to progress toward set goals. PLAN FOR NEXT VISIT: Patient is instructed to schedule a recheck for next visit SUBJECTIVE: Patient Reason for Visit: Patient reports I am feeling better. I am on two new medications. I am still going to have more cardiac test. Difficulty with reaching overhead and limited for how long I can keep them up. Pain: Pain Pain Level: 4 Pain Location: Shoulder - Left Description: (nagging) Post Treatment Pain Post Treatment Pain Level: 5 OBJECTIVE MEASURES WITH LEVEL OF FUNCTION: BP134/95 TREATMENT: Therapeutic Exercise: 1: Scifit, seat 7, 5 minutes, change at half 2: Standing postural stretch withback against door x 8 3: corner pec stretch 3 x 15 seconds 4: B ER with yellow 10 x 5: B active shoulder flexion to 90 degrees x 10 6: B shoulder abduction to 90 degree x 10 Skilled Intervention: Patient was educated in proper exercise technique and purpose for exercises. Skilled judgment was provided in selection of appropriate interventions. Correct performance of therapeutic exercises was facilitated with verbal and visual cuing. Billing Therapeutic Exercise Treatment Minutes: 41 Total Treatment Time Minutes (timed/untimed): 41 Abimbola Partida [facility]06-27-2023 History of Present illness Narrative* Abimbola Partida [facility] - 03/28/2023 2:57 PM EDT Episode Visit Count: 7 Therapist That Will Accept/Oversee The Plan Of Care: Genia Castañeda Start of Care Date: 01/05/23 Plan of Care Certification Date: 03/01/23 Next Certification Due Date: 04/30/23 Patient Identified by Name and Date of : Yes REHABILITATION AND SPORTS THERAPY PHYSICAL THERAPY TREATMENT NOTE ASSESSMENT: Cash Michel tolerated the session with expected muscle soreness. Patient is unable to retract cervical spine to touch wall when scapula and hips are against wall. He demonstrateddifficulty with performing resisted rows and active left shoulder flexion . The patient will continue to benefit from ongoing skilled physical therapy to progress toward set goals. PLAN FOR NEXT VISIT: Patient is instructed to schedule a recheck for next visit SUBJECTIVE: Patient Reason for Visit: Patient reports I am feeling better. I am on two new medications. I am still going to have more cardiac test. Difficulty with reaching overhead and limited for how long I can keep them up. Pain: Pain Pain Level: 4 Pain Location: Shoulder - Left Description: (nagging) Post Treatment Pain Post Treatment Pain Level: 5 OBJECTIVE MEASURES WITH LEVEL OF FUNCTION: BP134/95 TREATMENT: Therapeutic Exercise: 1: Scifit, seat 7, 5 minutes, change at half 2: Standing postural stretch withback against door x 8 3: corner pec stretch 3 x 15 seconds 4: B ER with yellow 10 x 5: B active shoulder flexion to 90 degrees x 10 6: B shoulder abduction to 90 degree x 10 Skilled Intervention: Patient was educated in proper exercise technique and purpose for exercises. Skilled judgment was provided in selection of appropriate interventions. Correct performance of therapeutic exercises was facilitated with verbal and visual cuing. Billing Therapeutic Exercise Treatment Minutes: 41 Total Treatment Time Minutes (timed/untimed): 41 Abimbola Partida PTA documented in this encounterK[facility]06-07-2023 Miscellaneous Notes* Telephone Encounter - Alysa Reddy LPN - 03/08/2023 9:12 AM EDT Tried calling patient, went straight to [employer]. No message left. Patient referral has been scanned in [employer] 02/16/23, appointment was scheduled with Dr. Wilson for 04/10/23. Alysa Reddy LPN * Telephone Encounter - Linsey Smith RN - 03/07/2023 3:52 PM EDT Patient calls to ask if referral has been received from Emily Cat CNP at [facility]. Patient reports the referral is for patient to see Dr. Wilson for gallstones. Patient requesting call back at [phone]. Linsey Smith RN documented in this encounterK[facility]05-31-2023 NoteHNO ID: [id number] Author: Genia Castañeda PT Service: ? Author Type: Physical Therapist Type: Progress Notes Filed: 03/01/2023 6:55 PM Note Text: Episode Visit Count: 6 Therapist That Will Accept/Oversee The Plan Of Care: Genia Castañeda Start of Care Date: 01/05/23 Plan of Care Certification Date: 03/01/23 Next Certification Due Date: 04/30/23 REHABILITATION AND SPORTS THERAPY PHYSICAL THERAPY PROGRESS REPORT PLAN OF CARE UPDATE: Assessment: Previous hold on therapy due to cardiac/BP issues. BP now stable. Is still having additional cardial work up. Appropriate to resume PT. Neck pain overall better, but not fully resolved. Still also noting continued shoulder pain. Does demonstrates weakness UE's this date but difficult to fully assess due to intermittent give way weakness. Continued notable postural deficits and minor cervical motion restrictions. Current prognosis is Good due to: current objective clinical presentation Fair due to: chronic nature of impairments . He will benefit from continued skilled therapy services to meet the updated goals for this plan of care as noted below. Goals for Episode of Care: created on 01/05/23 through 03/06/23 Updated 03/01/2023-resume therapy [place] in home exercise program. Patient will decrease pain rating by 2 points to meet minimal clinical important difference for numeric pain rating scale. Patient will increase active ROM of cervical region to minimal restriction or better with trace to no pain to allow pt to to improve postural alignment, to improve performance of ADLs, and to improve gait mechanics / gait pattern . Patient will demonstrate increase in DNF, scapular, postural strength in order to improve function for prior functional tasks with trace to no pain. Patient will increase flexibility of pectorals and B geneva cervical soft tissue to WNL to improve ability to maintain proper posture, improve mechanics, and decrease pain. Improve postural awareness. Planned Interventions, Frequency, and Duration: 2x/week (decreasing to 1 x per week as able), 8 weeks Total Number of Visits Planned: 10 Patient to be seen for Therapeutic exercise (02999), Neuromuscular re-education (21975), Manual therapy (52745), Therapeutic activities (15096), Self-jail management (44391), Gait Training (42058) PLAN FOR NEXT VISIT: Resume therapy. Monitor vitals as appropriate. Having additional cardiac work up. Emphasis on postural re-ed, scapular stability, gentle cervical and postural stretching, and GH/RTC strength. SUBJECTIVE: Patient Reason for Visit: Followed up with PCP. Referred to buying intern and workforce development vice president. Will be having additional heart testing in new future. Updated BP meds. Blood pressure better and feeling pretty good. Not aware of any restrictions. Still getting cramps L side of neck and L shoulder. Neck pain now 4/10 toothache constant. Feels like a strain. Doing everything would normally do now. Parasthesias left arm less often. Intermittent L shoulder pain with lifting can get pain or with repetitive usage push/pull 4/10 toothache. Pain: see above PROMIS Scales T-scores: mean of general population = 50. 5 points is clinically meaningfully difference Percentiles provide an indication of how the patient's score ranks in relation to the general population. Higher percentile rankings indicate better function/quality of life. 50th percentile is the average of the general population and indicates half of respondents had a worse score. OBJECTIVE MEASURES WITH LEVEL OF FUNCTION: Posture / Alignment Posture: (cervical protraction with upper cervical extn, notabl thoracic and scapular protraction) Cervical Spine ROM Cervical Retraction AROM: Moderate limitation Cervical Flexion AROM: Normal Cervical Extension AROM: Minimal limitation (minor L neck pain) Cervical Side-Bend Right AROM: Normal Cervical Side-Bend Left AROM: Normal Cervical Rotation Right AROM: Minimal limitation Cervical Rotation Left AROM: Normal (pain) UE AROM L UE AROM: grossly symmetric to right except IR/ER visually 90% UE and Cervical Strength Strength Tested: Shoulder All, Distal UE, Hand R UE Strength: difficult to fully assess MMT due to give way weakness at times R Shoulder Flexion: 4+/5 R Shoulder Abduction (C5): 4+/5 R Shoulder Internal Rotation: 4+/5 R Shoulder External Rotation: 4-/5 R Middle Trapezius: (scap stability grossly 3+) R Elbow Extension (C7): 4-/5 R Elbow Flexion (C6): 4/5 R Wrist Extension: 4/5 R Wrist Flexion: 4-/5 L Shoulder Flexion: 4/5 L Shoulder Abduction (C5): 4-/5 L Shoulder Internal Rotation: 4/5 L Shoulder External Rotation: 4+/5 L Middle Trapezius: (scap stability grossly 3+) L Elbow Extension (C7): 4-/5 L Elbow Flexion (C6): 4-/5 L Wrist Extension: 4-/5 L Wrist Flexion: 4-/5 Special Tests - Hip and Spine Special Test Comments: shoulder impingement positive L, (more content not included)...[id number] History of Present illness Narrative* Genia Castañeda, PT - 03/01/2023 6:02 PM EDT Episode Visit Count: 6 Therapist That Will Accept/Oversee The Plan Of Care: Genia Castañeda Start of Care Date: 01/05/23 Plan of Care Certification Date: 03/01/23 Next Certification Due Date: 04/30/23 REHABILITATION AND SPORTS THERAPY PHYSICAL THERAPY PROGRESS REPORT PLAN OF CARE UPDATE: Assessment: Previous hold on therapy due to cardiac/BP issues. BP now stable. Is still having additional cardial work up. Appropriate to resume PT. Neck pain overall better, but not fully resolved. Still also noting continued shoulder pain. Does demonstrates weakness UE's this date but difficult to fully assess due to intermittent give way weakness. Continued notable postural deficits and minor cervical motion restrictions. Current prognosis is Good due to: current objective clinical presentation Fair due to: chronic nature of impairments . He will benefit from continued skilled therapy services to meet the updated goals for this plan of care as noted below. Goals for Episode of Care: created on 01/05/23 through 03/06/23 Updated 03/01/2023-resume therapy [place] in home exercise program. Patient will decrease pain rating by 2 points to meet minimal clinical important difference for numeric pain rating scale. Patient will increase active ROM of cervical region to minimal restriction or better with trace to no pain to allow pt to to improve postural alignment, to improve performance of ADLs, and to improve gait mechanics / gait pattern . Patient will demonstrate increase in DNF, scapular, postural strength in order to improve function for prior functional tasks with trace to no pain. Patient will increase flexibility of pectorals and B geneva cervical soft tissue to WNL to improve ability to maintain proper posture, improve mechanics, and decrease pain. Improve postural awareness. Planned Interventions, Frequency, and Duration: 2x/week (decreasing to 1 x per week as able), 8 weeks Total Number of Visits Planned: 10 Patient to be seen for Therapeutic exercise (99493), Neuromuscular re-education (67703), Manual therapy (08952), Therapeutic activities (11053), Self-jail management (91988), Gait Training (66501) PLAN FOR NEXT VISIT: Resume therapy. Monitor vitals as appropriate. Having additional cardiac work up. Emphasis on postural re-ed, scapular stability, gentle cervical and postural stretching, and GH/RTC strength. SUBJECTIVE: Patient Reason for Visit: Followed up with PCP. Referred to buying intern and workforce development vice president. Will be having additional heart testing in new future. Updated BP meds. Blood pressure better and feeling pretty good. Not aware of any restrictions. Still getting cramps L side of neck and L shoulder. Neck pain now 4/10 toothache constant. Feels like a strain. Doing everything would normally do now. Parasthesias left arm less often. Intermittent L shoulder pain with lifting can get pain or with repetitive usage push/pull 4/10 toothache. Pain: see above PROMIS Scales T-scores: mean of general population = 50. 5 points is clinically meaningfully difference Percentiles provide an indication of how the patient's score ranks in relation to the general population. Higher percentile rankings indicate better function/quality of life. 50th percentile is the average of the general population and indicates half of respondents had a worse score. OBJECTIVE MEASURES WITH LEVEL OF FUNCTION: Posture / Alignment Posture: (cervical protraction with upper cervical extn, notabl thoracic and scapular protraction) Cervical Spine ROM Cervical Retraction AROM: Moderate limitation Cervical Flexion AROM: Normal Cervical Extension AROM: Minimal limitation (minor L neck pain) Cervical Side-Bend Right AROM: Normal Cervical Side-Bend Left AROM: Normal Cervical Rotation Right AROM: Minimal limitation Cervical Rotation Left AROM: Normal (pain) UE AROM L UE AROM: grossly symmetric to right except IR/ER visually 90% UE and Cervical Strength Strength Tested: Shoulder All, Distal UE, Hand R UE Strength: difficult to fully assess MMT due to give way weakness at times R Shoulder Flexion: 4+/5 R Shoulder Abduction (C5): 4+/5 R Shoulder Internal Rotation: 4+/5 R Shoulder External Rotation: 4-/5 R Middle Trapezius: (scap stability grossly 3+) R Elbow Extension (C7): 4-/5 R Elbow Flexion (C6): 4/5 R Wrist Extension: 4/5 R Wrist Flexion: 4-/5 L Shoulder Flexion: 4/5 L Shoulder Abduction (C5): 4-/5 L Shoulder Internal Rotation: 4/5 L Shoulder External Rotation: 4+/5 L Middle Trapezius: (scap stability grossly 3+) L Elbow Extension (C7): 4-/5 L Elbow Flexion (C6): 4-/5 L Wrist Extension: 4-/5 L Wrist Flexion: 4-/5 Special Tests - Hip and Spine Special Test Comments: shoulder impingement positive L, cervical compression and spurlings negative TREATMENT: Therapeutic Exercise: 1: recheck per above 2: *B ER vs yellow tband 2 x 10 3: *mid rows yellow 2 x 10 4: *shoulder extn yellow 2 x 10 Skilled Intervention: Patient was educated in proper exercise technique and purpose for exercises. Skilled judgment was provided in selection of appropriate interventions. Provided written instruction for home exercise program to facilitate proper performance and compliance. Correct performance of therapeutic exercises was facilitated with verbal and visual cuing. Self-Group Home Management: 1: recheck findings, HEP and parameters Skilled Intervention: Skilled judgment in the selection of proper modification for activity of daily living/home management based on clinical presentation, deficits, and needs. Billing Therapeutic Exercise Treatment Minutes: 35 Self-Care/Home Management Treatment Minutes: 5 Total Treatment Time Minutes (timed/untimed): 45 Genia Castañeda PT documented in this encounterK[facility]05-09-2023 Miscellaneous Notes* Telephone Encounter - Dorota Larkin MA - 02/07/2023 10:26 AM EDT Attempted to call pt, left a vm giving the message below and advised to return ronal with any questions. Dorota Larkin MA * Telephone Encounter - Perri Humphreys MA - 02/03/2023 3:07 PM EDT Attempted to reach patient and unable to leave a message. Please relay when patient returns the call. Perri Humphreys MA * Telephone Encounter - Prashanth Luna APRN.CNP - 02/03/2023 2:58 PM EDT Please notify patient his labs and urine test are in the normal range. Prashanth Luna APRN.CNP documented in this encounterK[facility]tering [facility]05-04-2023 Miscellaneous Notes* Telephone Encounter - Prashanth Alberts PA-C - 02/02/2023 4:44 PM EDT The following approved medication requests have been transmitted electronically. Requested Prescriptions Pending Prescriptions Disp Refills lisinopril-hydroCHLOROthiazide (ZESTORETIC) 20-12.5 mg per tablet [Pharmacy Med Name: LISINOPRIL-HCTZ 20-12.5 MG TAB] 90 tablet 2 Sig: take 1 tablet by mouth once daily Prashanth Alberts PA-C * Telephone Encounter - Michelle Cohen MA - 02/02/2023 11:33 AM EDT Requesting 90 day supply. Michelle Cohen MA February 02, 2023 11:33 AM documented in this encounterKettering [facility]05-02-2023 History of Present illness Narrative* Prashanth Luna APRN.CNP - 01/31/2023 2:49 PM EDT Jamil Castrejon presents with complaints of elevated blood pressure and recurrent chest pain. States that his blood pressure has been elevated at his recent physical therapy visits. States he is adherent to lisinopril and amlodipine as prescribed. He is not checking home readings. He does feel dizzy with position changes. He also reports intermittent chest discomfort, occurring approximately 2-3 times per day over the last year. He does not necessarily feel that it is worse but is concerned that it is persistent. He states the pain usually comes on when he is active, pushing himself to do something physical. States it feels like a tightness, does radiate to his left arm and is associated with a sense of numbness to the fingers of his left hand. States that usually lasts around 4 minutes. He denies associated nausea, vomiting, palpitations or shortness of breath. States he was previously evaluated through [facility] for same, had nuclear stress test around August, was told that only 60% of his heart is working. He has an appointment scheduled with cardiology in April. Patient is a non-smoker, does have family history of CAD. Review of Systems Constitutional: Negative for chills, fever, malaise/fatigue and weight loss. HENT: Negative for congestion, ear pain, hearing loss, nosebleeds and sore throat. Eyes: Negative for blurred vision, double vision, photophobia and pain. Respiratory: Negative for cough, shortness of breath and wheezing. Cardiovascular: Positive for chest pain. Negative for palpitations, claudication and leg swelling. Gastrointestinal: Negative for abdominal pain, blood in stool, constipation, diarrhea, melena, nausea and vomiting. Genitourinary: Negative for dysuria, flank pain and hematuria. Skin: Negative for itching and rash. Neurological: Negative for tremors, sensory change, speech change, focal weakness and headaches. Past Medical history: No past medical history on file. Past Surgical History: No past surgical history on file. Family History: No family history on file. Social History: Social History Tobacco Use Smoking status: Never Smokeless tobacco: Never Substance Use Topics Alcohol use: Never Drug use: Never Current Medications: HYDROcodone-acetaminophen (NORCO) 5-325 mg per tablet, Take by mouth., Disp: ,Rfl: naproxen (NAPROSYN) 500 mg tablet, Take 500 mg by mouth twice daily., Disp: , Rfl: amLODIPine (NORVASC) 10 mg tablet, 20 mg., Disp: , Rfl: omeprazole (PRILOSEC) 20 mg capsule, Take by mouth., Disp: , Rfl: fluticasone-salmeterol (ADVAIR, WIXELA) 250-50 mcg/dose inhaler, Inhale as instructed., Disp: , Rfl: acetaminophen (TYLENOL EXTRA STRENGTH ORAL), Take by mouth., Disp: , Rfl: albuterol HFA (VENTOLIN HFA) 90 mcg/actuation inhaler, Inhale 2 Puffs as instructed every 4 hours as needed for Wheezing/Shortness of Breath., Disp: 1 Inhaler, Rfl: 0 lisinopril-hydroCHLOROthiazide (ZESTORETIC) 20-12.5 mg per tablet, Take 1 tablet by mouth once daily., Disp: 30 tablet, Rfl: 2 [DISCONTINUED] amoxicillin-clavulanic acid (AUGMENTIN) 875-125 mg per tablet, Take 1 tablet by mouth twice daily., Disp: , Rfl: [DISCONTINUED] amLODIPine (NORVASC) 5 mg tablet, Take by mouth., Disp: , Rfl: [DISCONTINUED] amLODIPine (NORVASC) 5 mg tablet, Take 5 mg by mouth once daily., Disp: , Rfl: [DISCONTINUED] lisinopril (ZESTRIL) 20 mg tablet, , Disp: , Rfl: [DISCONTINUED] predniSONE (DELTASONE) 20 mg tablet, 2 pills daily x 3 days, then 1 pill daily x 4 days, then 1/2 pill daily x 4 days., Disp: 12 tablet, Rfl: 0 No facility-administered encounter medications on file as of 01/31/2023. Allergies: ALLERGIES No Known Allergies Vitals: BP 159/118 Pulse 88 Ht 5' 9 (1.75m) Wt 173 lb (78.5kg) SpO2 99% BMI 25.54 kg/(m^2). Objective Physical Exam Constitutional: Appearance: Normal appearance. HENT: Head: Normocephalic and atraumatic. Eyes: General: No scleral icterus. Conjunctiva/sclera: Conjunctivae normal. Cardiovascular: Rate and Rhythm: Normal rate and regular rhythm. Heart sounds: No murmur heard. Pulmonary: Effort: Pulmonary effort is normal. No respiratory distress. Breath sounds: Normal breath sounds. Abdominal: General: There is no distension. Tenderness: There is no abdominal tenderness. Skin: General: Skin is warm and dry. Neurological: General: No focal deficit present. Mental Status: He is alert and oriented to person, place, and time. ASSESSMENT/PLAN: 1. Primary hypertension - ICD9: 401.9, ICD10: I10 (primary diagnosis) Recommend changing lisinopril to lisinopril with hydrochlorothiazide. Continue healthy lifestyle modifications with diet and exercise. Recommend labs and urinalysis today. Close follow-up in 2 weeks with PCP. - CBC + DIFF - COMP METABOLIC PANEL - TSH BLD - URINALYSIS, WITH MICROSCOPIC 2. Other chest pain - ICD9: 786.59, ICD10: R07.89 EKG obtained, no changes from previous. Patient scheduled to see cardiology, will attempt to move appointment sooner. Patient to go to ER for any worsening. Will obtain labs and attempt to gain better control of blood pressure. - ECG COMPLETE - CBC + DIFF - COMP METABOLIC PANEL - TSH BLD Prashanth Luna APRN.AUTOMATIC SHIRRING MACHINE OPERATOR documented in this encounterKettering Health [facility]05-02-2023 Instructions* Patient Instructions* Dorota Larkin MA - 01/31/2023 2:01 PM EDT [facility] FACTS Please visit our lab at least 3-5 days before your scheduled appointment to have your lab work drawn, if lab work is ordered. This will allow us the ability to review your lab work results with you during your scheduled visit. [facility] HOURS: Lab is open Monday - Monday from 6:30am to 5pm and open 8am -12pm on Saturdays. [facility]: Monday- 7:30am to 5:30pm. Fridays 7:30-5:00pm and Monday 8:00am to 12:00 pm. Routine Lab Orders 60 days after they are entered. If your lab orders , you may be required to wait in the lab while they are reinstated FUTURE ORDERS are lab tests to be completed on the EXPECTED date. These orders 60 days afterthe expected date. STANDING ORDERS are recurring orders with an expiration date. The interval will indicate how often the test should be completed. [facility] LAB means nothing to eat or drink (except water) 10-12 hours before your blood is drawn. CT/MRI/IVP If you have one of these radiology exams ordered along with blood work, please complete the blood work at least one day prior to the scheduled exam. My Chart Schedule My Appointment enables you to view your established primary care provider's open schedule and book an appointment online in real-time. This feature is available in internal medicine, family medicine, or pediatrics at any of our [facility] locations and main campus. documented in this encounterKettering Health [facility]04-28-2023 NoteHNO ID: [id number] Author: Genia Castañeda PT Service: ? Author Type: Physical Therapist Type: Progress Notes Filed: 01/27/2023 11:43 AM Note Text: Episode Visit Count: 5 Therapist That Will Accept/Oversee The Plan Of Care: Genia Castañeda Start of Care Date: 01/05/23 Plan of Care Certification Date: 01/05/23 Next Certification Due Date: 03/06/23 REHABILITATION AND SPORTS THERAPY PHYSICAL THERAPY TREATMENT NOTE ASSESSMENT: Patient continues to report high and fluctuating levels of neck pain. 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 He also complains of intermittent SOB, chest pain, and dizziness. Elevated BP and MAP readings in clinic persist. Pt states sx's are chronic and no new sx's today, declines ED. Recommended pt follow up with physician to discuss status. Will have pt return to PT pending physician recommendations. Patient agreeable with plan. Reviewed red flags and when to seek medical attention. PLAN FOR NEXT VISIT: Hold on pending pending physician recommendations SUBJECTIVE: Patient Reason for Visit: Neck pain fluctuates with weather. Exercises do help for a while but then comes back. L anterolateral neck pain, back side of neck pain. Pain 10/10, but does not need to go to emergency room. Bad day with weather. Pain down to 5/10 at times. Heat/ice can help a little bit. Pain: see above OBJECTIVE MEASURES WITH LEVEL OF FUNCTION: Posture / Alignment Posture: (cervical protraction with upper cervical extn) Start of session BP 157/109, HR 90, MAP 125 BP 155/109, HR 85, MAP 124 -mild whooziness, notes no atypical sx's states has at baseline, declines TREATMENT: Therapeutic Exercise: 1: Vitals 2: can continue with HEP in interim as long as no adverse sx's Skilled Intervention: Skilled judgment was provided in selection of appropriate interventions. Self-Group Home Management: 1: discussed status at length, elevated BP concerns, red flags, need to follow up with PCP, continued high pain levels Skilled Intervention: Skilled judgment in the selection of proper modification for activity of daily living/home management based on clinical presentation, deficits, and needs. Billing Therapeutic Exercise Treatment Minutes: 10 Self-Care/Home Management Treatment Minutes: 15 Total Treatment Time Minutes (timed/untimed): 30 [facility] Cast[facility]eda [id number] History of Present illness Narrative * Genia Castañeda, PT - 01/27/2023 11:05 AM EDT Episode Visit Count: 5 Therapist That Will Accept/Oversee The Plan Of Care: Genia Castañeda Start of Care Date: 01/05/23 Plan of Care Certification Date: 01/05/23 Next Certification Due Date: 03/06/23 REHABILITATION AND SPORTS THERAPY PHYSICAL THERAPY TREATMENT NOTE ASSESSMENT: Patient continues to report high and fluctuating levels of neck pain. 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 He also complains of intermittent SOB, chest pain, and dizziness. Elevated BP and MAP readings in clinic persist. Pt states sx's are chronic and no new sx's today, declines ED. Recommended pt follow up with physician to discuss status. Will have ptreturn to PT pending physician recommendations. Patient agreeable with plan. Reviewed red flags andwhen to seek medical attention. PLAN FOR NEXT VISIT: Hold on pending pending physician recommendations SUBJECTIVE: Patient Reason for Visit: Neck pain fluctuates with weather. Exercises do help for a while but then comes back. L anterolateral neck pain, back side of neck pain. Pain 10/10, but does notneed to go to emergency room. Bad day with weather. Pain down to 5/10 at times. Heat/ice can help alittle bit. Pain: see above OBJECTIVE MEASURES WITH LEVEL OF FUNCTION: Posture / Alignment Posture: (cervical protraction with upper cervical extn) Start of session BP 157/109, HR 90, MAP 125 BP 155/109, HR 85, MAP 124 -mild whooziness, notes no atypical sx's states has at baseline, declines TREATMENT: Therapeutic Exercise: 1: Vitals 2: can continue with HEP in interim as long as no adverse sx's Skilled Intervention: Skilled judgment was provided in selection of appropriate interventions. Self-Group Home Management: 1: discussed status at length, elevated BP concerns, red flags, need to follow up with PCP, continued high pain levels Skilled Intervention: Skilled judgment in the selection of proper modification for activity of daily living/home management based on clinical presentation, deficits, and needs. Billing Therapeutic Exercise Treatment Minutes: 10 Self-Care/Home Management Treatment Minutes: 15 Total Treatment Time Minutes (timed/untimed): 30 Genia Castañeda PT documented [facility]04-24-2023 NoteHNO ID: [id number] Author: Usman Avendaño PTA Service: ? Author Type: Repair Table Operator Type: Progress Notes Filed: 01/23/2023 11:41 AM Note Text: Episode Visit Count: 4 Therapist That Will Accept/Oversee The Plan Of Care: Genia Castañeda Start of Care Date: 01/05/23 Plan of Care Certification Date: 01/05/23 Next Certification Due Date: 03/06/23 Patient Identified by Name and Date of : Yes REHABILITATION AND SPORTS THERAPY PHYSICAL THERAPY TREATMENT NOTE ASSESSMENT: Cash Michel tolerated the session with decreased symptoms. He demonstrated difficulty with active neck ROM and shoulder flexion with pullys due to L shoulder pain. Requires continues cues for body mechanics during exercises, and redirection to stay on task throughout session.The patient will continue to benefit from ongoing skilled physical therapy to progress toward set goals. PLAN FOR NEXT VISIT: Continue with gentle stretching and strengthening as tolerated. SUBJECTIVE: Patient Reason for Visit: Pt in a lot of pain today, tries to not take any pain pills if he doesnt have to. Pain is in anterior shoulder today. He has a cut on back of neck due to hitting his neck on a dresser in his room. Pain: Pain Pain Level: 10 Pain Location: Shoulder - Left Description: Aching Frequency: Continuous Post Treatment Pain Post Treatment Pain Level: 6 Post Treatment Pain Location: Shoulder - Left Post Treatment Pain Description: Aching OBJECTIVE MEASURES WITH LEVEL OF FUNCTION: Pt arrived appearing unsteady with increased swaying with gait. Painful L shoulder with flexion activity. TREATMENT: Therapeutic Exercise: 1: cervical retractions 10x hold 5 sec. 2: supine wand flexion 10x 3: chest press 12x with wand 4: shoulder protraction 5: *scap squeezes 12x 6: *AROM flex/ext/lat/rotation B 5x each (painful with rotation both sides) 7: *hands clasped head down hold 10 sec. 8: Jose Elias flexion (to tolerance) abd 2 min each cues for posture and to keep head neutral. 9: red band rows x 10 10: red band shoulder ext 12x Skilled Intervention: Patient was educated in proper exercise technique and purpose for exercises. Skilled judgment was provided in selection of appropriate interventions. Provided written instruction for home exercise program to facilitate proper performance and compliance. Correct performance of therapeutic exercises was facilitated with verbal cuing. Manual Therapy: 1: massage gun 5 min to anterior shoulder and L UT for pain relief Skilled Intervention: Manual skills to improve joint mobility, ROM, and decrease pain. Utilized anatomy knowledge of the therapist, and assessment of patient's response to intervention. Billing Therapeutic Exercise Treatment Minutes: 42 Manual TherapyTreatment Minutes: 6 Self-Care/Home Management Treatment Minutes: 6 Total Treatment Time Minutes (timed/untimed): 54 Usman Avendaño, [facility]04-24-2023 History of Present illness Narrative* Usman Avendaño, [facility] - 01/23/2023 10:41 AM EDT Episode Visit Count: 4 Therapist That Will Accept/Oversee The Plan Of Care: Genia Castañeda Start of Care Date: 01/05/23 Plan of Care Certification Date: 01/05/23 Next Certification Due Date: 03/06/23 Patient Identified by Name and Date of : Yes REHABILITATION AND SPORTS THERAPY PHYSICAL THERAPY TREATMENT NOTE ASSESSMENT: Cash Michel tolerated the session with decreased symptoms. He demonstrated difficulty with active neck ROM and shoulder flexion with pullys due to L shoulder pain. Requires continues cues for body mechanics during exercises, and redirection to stay on task throughout session.The patient will continue to benefit from ongoing skilled physical therapy to progress toward set goals. PLAN FOR NEXT VISIT: Continue with gentle stretching and strengthening as tolerated. SUBJECTIVE: Patient Reason for Visit: Pt in a lot of pain today, tries to not take any pain pills if he doesnt have to. Pain is in anterior shoulder today. He has a cut on back of neck due to hittinghis neck on a dresser in his room. Pain: Pain Pain Level: 10 Pain Location: Shoulder - Left Description: Aching Frequency: Continuous Post Treatment Pain Post Treatment Pain Level: 6 Post Treatment Pain Location: Shoulder - Left Post Treatment Pain Description: Aching OBJECTIVE MEASURES WITH LEVEL OF FUNCTION: Pt arrived appearing unsteady with increased swaying with gait. Painful L shoulder with flexion activity. TREATMENT: Therapeutic Exercise: 1: cervical retractions 10x hold 5 sec. 2: supine wand flexion 10x 3: chest press 12x with wand 4: shoulder protraction 5: *scap squeezes 12x 6: *AROM flex/ext/lat/rotation B 5x each (painful with rotation both sides) 7: *hands clasped head down hold 10 sec. 8: Jose Elias flexion (to tolerance) abd 2 min each cues for posture and to keep head neutral. 9: red band rows x 10 10: red band shoulder ext 12x Skilled Intervention: Patient was educated in proper exercise technique and purpose for exercises. Skilled judgment was provided in selection of appropriate interventions. Provided written instruction for home exercise program to facilitate proper performance and compliance. Correct performance of therapeutic exercises was facilitated with verbal cuing. Manual Therapy: 1: massage gun 5 min to anterior shoulder and L UT for pain relief Skilled Intervention: Manual skills to improve joint mobility, ROM, and decrease pain. Utilized anatomy knowledge of the therapist, and assessment of patient's response to intervention. Billing Therapeutic Exercise Treatment Minutes: 42 Manual TherapyTreatment Minutes: 6 Self-Care/Home Management Treatment Minutes: 6 Total Treatment Time Minutes (timed/untimed): 54 Usman Avendaño PTA documented in this [facility]04-14-2023 NoteHNO ID: [id number] Author: Usman Avendaño PTA Service: ? Author Type: Repair Table Operator Type: Progress Notes Filed: 01/13/2023 11:11 AM Note Text: Episode Visit Count: 3 Therapist That Will Accept/Oversee The Plan Of Care: Genia Castañeda Start of Care Date: 01/05/23 Plan of Care Certification Date: 01/05/23 Next Certification Due Date: 03/06/23 Patient Identified by Name and Date of : Yes REHABILITATION AND SPORTS THERAPY PHYSICAL THERAPY TREATMENT NOTE ASSESSMENT: Cash Michel tolerated the session with expected muscle soreness. Requires cues to stay on task throughout session. Pt requested to stay and rest after session, reporting today is not a good day. Took vitals again (Map 128, 148/109). End of session vitals taken again (157/114). Issued HEP, pt left on table The patient will continue to benefit from ongoing skilled physical therapy to progress toward set goals. PLAN FOR NEXT VISIT: Continue with gentle stretching and strengthening as tolerated. SUBJECTIVE: Patient Reason for Visit: Pt sore today, about the same as last session. Pt reports when questioned, he is supposed to be taking his BP at home and be on BP meds, but it not. BP taken 2x today. Reading high. Pain: Pain Pain Level: 6 Pain Location: Neck Description: Aching Frequency: Continuous Post Treatment Pain Post Treatment Pain Level: No Change OBJECTIVE MEASURES WITH LEVEL OF FUNCTION: Rounded shoulders forward head. TREATMENT: Therapeutic Exercise: 1: cervical retractions 10x hold 5 sec. 2: *supine wand flexion 10x 3: chest press wand 2# 10x 0# 10x (L shoulder discomfort) 4: *Scap squeezes x 10 5: supine cervical rotation 2x supine (began getting R rib area discomfort) 6: *AROM flex/ext/lat/rotation B 5x each 7: red band rows x 10 8: red band shoulder ext. 9: *low V doorway stretch 2 x 15 sec. 10: anterior shoulder doorway stretch too painful- caused wooziness Skilled Intervention: Patient was educated in proper exercise technique and purpose for exercises. Provided written instruction for home exercise program to facilitate proper performance and compliance. Correct performance of therapeutic exercises was facilitated with verbal and visual cuing. Billing Therapeutic Exercise Treatment Minutes: 40 Self-Care/Home Management Treatment Minutes: 5 Total Treatment Time Minutes (timed/untimed): 50 Usman Avendaño PTACommunity [facility] [id number] NoteHNO ID: [id number] Author: Usman Avendaño PTA Service: ? Author Type: Repair Table Operator Type: Progress Notes Filed: 01/11/2023 4:50 PM Note Text: Episode Visit Count: 2 Therapist That Will Accept/Oversee The Plan Of Care: Genia Sandraandrew Start of Care Date: 01/05/23 Plan of Care Certification Date: 01/05/23 Next Certification Due Date: 03/06/23 Patient Identified by Name and Date of : Yes REHABILITATION AND SPORTS THERAPY PHYSICAL THERAPY TREATMENT NOTE ASSESSMENT: Cash Michel tolerated the session with decreased symptoms. He demonstrated difficulty with exercises today, most causing pain to R side of ribs. Manual cervical traction felt good. Instructed to try his current HEP prior to next session. The patient will continue to benefit from ongoing skilled physical therapy to progress toward set goals. PLAN FOR NEXT VISIT: Continue with gentle stretching and strengthening as tolerated. SUBJECTIVE: Patient Reason for Visit: Pt reports he had a blower on his back and he fell, had dificulty getting back up. Having a bad day today. Has not had time to complete his HEP. Pain: Pain Pain Level: 7 Pain Location: Neck Description: Aching Frequency: Continuous Post Treatment Pain Post Treatment Pain Level: 4 Post Treatment Pain Location: Neck Post Treatment Pain Description: Aching OBJECTIVE MEASURES WITH LEVEL OF FUNCTION: Pt limited with ther ex due to pain in left side, under axilla. TREATMENT: Therapeutic Exercise: 1: cervical retractions 10x hold 5 sec. 2: supine wand flexion 1# 10x 3: chest press wand 1# 4: shoulder shrugs x 10 5: scap squeezes x 10 6: backwards shoulder rolls (attempted) 7: scap squeezes x 2 (bothered L side rib cage/under neath axilla) 8: L UT stretch 1 x 15 sec 9: hands clasped chin tuck x 15 sec. Skilled Intervention: Patient was educated in proper exercise technique and purpose for exercises. Skilled judgment was provided in selection of appropriate interventions. Correct performance of therapeutic exercises was facilitated with visual cuing. Manual Therapy: 1: passive UT stretch B 2: cervical manual traction x 8 min 3: massage gun to L side of neck/ UT x 5 min Skilled Intervention: Manual skills to improve joint mobility, ROM, and decrease pain. Utilized anatomy knowledge of the therapist, and assessment of patient's response to intervention. Billing Therapeutic Exercise Treatment Minutes: 23 Manual TherapyTreatment Minutes: 15 Self-Care/Home Management Treatment Minutes: 5 Total Treatment Time Minutes (timed/untimed): 43 Usman Avendaño, [facility]04-12-2023 History of Present illness Narrative* Usman Avendaño, PHOTOGRAPHIC SUPERVISOR - 01/11/2023 3:44 PM EDT Episode Visit Count: 2 Therapist That Will Accept/Oversee The Plan Of Care: Genia Castañeda Start of Care Date: 01/05/23 Plan of Care Certification Date: 01/05/23 Next Certification Due Date: 03/06/23 Patient Identified by Name and Date of : Yes REHABILITATION AND SPORTS THERAPY PHYSICAL THERAPY TREATMENT NOTE ASSESSMENT: Cash Michel tolerated the session with decreased symptoms. He demonstrated difficulty with exercises today, most causing pain to R side of ribs. Manual cervical traction felt good. Instructed to try his current HEP prior to next session. The patient will continue to benefit from ongoing skilled physical therapy to progress toward set goals. PLAN FOR NEXT VISIT: Continue with gentle stretching and strengthening as tolerated. SUBJECTIVE: Patient Reason for Visit: Pt reports he had a blower on his back and he fell, had dificulty getting back up. Having a bad day today. Has not had time to complete his HEP. Pain: Pain Pain Level: 7 Pain Location: Neck Description: Aching Frequency: Continuous Post Treatment Pain Post Treatment Pain Level: 4 Post Treatment Pain Location: Neck Post Treatment Pain Description: Aching OBJECTIVE MEASURES WITH LEVEL OF FUNCTION: Pt limited with ther ex due to pain in left side, under axilla. TREATMENT: Therapeutic Exercise: 1: cervical retractions 10x hold 5 sec. 2: supine wand flexion 1# 10x 3: chest press wand 1# 4: shoulder shrugs x 10 5: scap squeezes x 10 6: backwards shoulder rolls (attempted) 7: scap squeezes x 2 (bothered L side rib cage/under neath axilla) 8: L UT stretch 1 x 15 sec 9: hands clasped chin tuck x 15 sec. Skilled Intervention: Patient was educated in proper exercise technique and purpose for exercises. Skilled judgment was provided in selection of appropriate interventions. Correct performance of therapeutic exercises was facilitated with visual cuing. Manual Therapy: 1: passive UT stretch B 2: cervical manual traction x 8 min 3: massage gun to L side of neck/ UT x 5 min Skilled Intervention: Manual skills to improve joint mobility, ROM, and decrease pain. Utilized anatomy knowledge of the therapist, and assessment of patient's response to intervention. Billing Therapeutic Exercise Treatment Minutes: 23 Manual TherapyTreatment Minutes: 15 Self-Care/Home Management Treatment Minutes: 5 Total Treatment Time Minutes (timed/untimed): 43 Usman Avendaño PTA documented in this encounterK[facility]04-10-2023 History of Present illness Narrative* Jonathan Stone MD - 01/09/2023 2:11 PM EDT Images from the original note were not included. ORTHOPAEDIC SHOULDER & ELBOW SERVICE HISTORY & PHYSICAL EXAM REFERRING PROVIDER: Awilda Garcia [address] [facility] [id number] CHIEF COMPLAINT: Left shoulder pain PAIN EVALUATION 01/06/2023 1415 Pain Level: 7 Pain Location: Shoulder-Left Description: Aching;Sore;Throbbing Duration Amount of Time: 1 Duration Units: Years Frequency: Continuous Intervention/Comfort measure: -- tylenol Cash Michel is a 57 year old man who presents with pain in the left shoulder today. He hasbeen referred by his primary care doctor and has been doing physical therapy which just recently started. There is no injury that he can recall which precipitated the pain. He has pain both at rest and with use of the arm. He finds it difficult to sleep due to pain in the shoulder. He feels he is having weakness as a result of his pain. Treatments and therapies to-date include: Activity modification/changes to daily activities: Yes Medical management (Tylenol, NSAIDs): Yes Physical therapy within the past 6 months for at least 4 weeks: Currently doing physical therapy Corticosteroid Injection: Has done in the past without good relief of symptoms PAST MEDICAL HISTORY: No past medical history on file. PAST SURGICAL HISTORY: No past surgical history on file. SOCIAL HISTORY: Social History Tobacco Use Smoking status: Never Smokeless tobacco: Never Substance Use Topics Alcohol use: Never Drug use: Never ALLERGIES: ALLERGIES No Known Allergies MEDICATIONS: Current Outpatient Medications on File Prior to Visit Medication Sig HYDROcodone-acetaminophen (NORCO) 5-325 mg per tablet Take by mouth. naproxen (NAPROSYN) 500 mg tablet Take 500 mg by mouth twice daily. amoxicillin-clavulanic acid (AUGMENTIN) 875-125 mg per tablet Take 1 tablet by mouth twice daily. amLODIPine (NORVASC) 10 mg tablet 20 mg. amLODIPine (NORVASC) 5 mg tablet Take by mouth. amLODIPine (NORVASC) 5 mg tablet Take 5 mg by mouth once daily. lisinopril (ZESTRIL) 20 mg tablet omeprazole (PRILOSEC) 20 mg capsule Take by mouth. fluticasone-salmeterol (ADVAIR, WIXELA) 250-50 mcg/dose inhaler Inhale as instructed. acetaminophen (TYLENOL EXTRA STRENGTH ORAL) Take by mouth. predniSONE (DELTASONE) 20 mg tablet 2 pills daily x 3 days, then 1 pill daily x 4 days, then 1/2 pill daily x 4 days. albuterol HFA (VENTOLIN HFA) 90 mcg/actuation inhaler Inhale 2 Puffs as instructed every 4 hours asneeded for Wheezing/Shortness of Breath. No current facility-administered medications on file prior to visit. PHYSICAL EXAMINATION: There were no vitals taken for this visit. EXAM: Shoulder Musculoskeletal Exam Inspection Left Ecchymosis: none Peripheral edema: none Atrophy: none Symmetry: symmetric Masses: none Skin tenting: none Prior incision: none Palpation Left Crepitus: mild Increased warmth: none Tenderness: present Anterior shoulder: mild Posterior shoulder: mild Clavicle: none AC joint: none Sternoclavicular joint: none Rotator cuff: mild Greater tuberosity: none Trapezius: mild Medial scapula: none Superior pole of scapula: none Inferior pole of scapula: none Bicipital groove: moderate Proximal biceps: moderate Distal biceps: none Lateral arm: none Elbow: none Range of Motion Left Active forward elevation: 150. Passive forward elevation: 150. Shoulder active abduction: 150. Passive abduction: 150. Active external rotation at side: 60. Active external rotation in abduction: 80. Passive external rotation in abduction: 80. Active internal rotation in abduction: 40. Passive internal rotation in abduction: 40. Internal rotation: T12 and L1. Strength Left External rotation: 5/5. Internal rotation: 5/5. Abduction: 5/5. Neurovascular Left Left shoulder nerve sensation is normal. Scapula Left Left shoulder scapula is normal. Special Tests Left Rotator Cuff Signs Neer's test: negative Miramontes test: positive External rotation lag sign: negative Supraspinatus: negative Belly press test: negative Painful arc test: positive Lift-off sign: negative Bear hug test: negative Drop arm test: negative Biceps/danyelle Signs Jefferson Davis's test: positive Clicking/popping: positive Speed's test: positive AC Joint Signs Active horizontal adduction pain: negative Single finger test: negative General Constitutional: appears stated age Labored breathing: no Psychiatric: normal mood and affect and no acute distress Neurological: alert and oriented x3 Skin: intact IMAGING: I reviewed radiographs of his left shoulder today showing normal alignment of the glenohumeral joint without significant degenerative change. There is no fracture or other acute process visible MEDICAL DECISION MAKING: (M67.108) Left shoulder pain, unspecified chronicity Comment: This is a 57-year-old man with pain in the left shoulder with maintained strength. He is likely dealing with rotator cuff and biceps tendon pathology based on exam findings today. Recommend he continue with his physical therapy for a period of 6 to 8 weeks and return to see me for repeat evaluation. If he fails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 this encounterKettering [facility] MemorialEvaluation noteNo assessment information availableWMagruder Hospital Work Phone: Evaluation note* Diagnosis Chronic fatigue- Primary Other malaise and fatigue Mixed hyperlipidemia Benign prostatic hyperplasia without lower urinary tract symptoms Screen for colon cancer Special screening for malignant neoplasms, colon documented in [facility] encounter [facility]* Diagnosis No-show for appointment- Primary documented in this encounter [facility] note* Diagnosis Onset Date Resolution Status Chest pain acute Essential hypertension chron ic Non-ischemic cardiomyopathy resolved [facility] Work Phone: Evaluation note* Diagnosis Left elbow pain- Primary Pain in joint, upper arm Chronic left shoulder pain Pain in joint, shoulder region Chest pain, unspecified type Neck pain Cervicalgia Other dysphagia documented in this encounter [facility] note* Diagnosis Neck pain Cervicalgia documented in this encounter [facility] note* Diagnosis Left shoulder pain, unspecified chronicity documented in this encounter [facility] note* Diagnosis Neck pain- Primary Cervicalgia documented in this encounter [facility] note* Diagnosis Neck pain- Primary Cervicalgia documented in this encounter [facility] note* Diagnosis Neck pain- Primary Cervicalgia documented in this encounter [facility] note* Diagnosis Primary hypertension- Primary Unspecified essential hypertension Other chest pain documented in this encounter [facility] note* Diagnosis Onset Date Resolution Status Chest pain acute Dizziness acute Essential hypertension chron ic Non-ischemic cardiomyopathy resolved [facility] Work Phone: Evaluation note* Diagnosis Neck pain- Primary Cervicalgia Chronic left shoulder pain Pain in joint, shoulder region documented in this encounter [facility] note* Diagnosis Neck pain- Primary Cervicalgia documented in this encounter [facility] note* Diagnosis Persistent asthma with status asthmaticus, unspecified asthma severity- Primary documented in this encounter [facility] note* Diagnosis Mild intermittent asthma, unspecified whether complicated- Primary documented in this encounter [facility] note* Diagnosis Mild intermittent asthma without complication- Primary Unspecified asthma documented in this encounter [facility] note* Diagnosis Calculus of gallbladder with chronic cholecystitis without obstruction- Primary Calculus of gallbladder with other cholecystitis, without mention of obstruction RUQ pain Abdominal pain, right upper quadrant documented in this encounter [facility] note* Diagnosis Hiatal hernia- Primary Diaphragmatic hernia without mention of obstruction or gangrene Esophageal dysphagia Dysphagia, pharyngoesophageal phase Gastroesophageal reflux disease, unspecified whether esophagitis present Screening for colorectal cancer Special screening for malignant neoplasms, colon [facility] Diagnosis Persistent asthma with status asthmaticus, unspecified asthma severity [facility]* Diagnosis Shortness of breath- Primary Blunt trauma to chest, initial encounter Atelectasis Pulmonary collapse Restrictive pattern present on pulmonary function testing Hypoxemia Uncomplicated asthma, unspecified asthma severity, unspecified whether persistent Gastroesophageal reflux disease with esophagitis without hemorrhage Hiatal hernia Diaphragmatic hernia without mention of obstruction or gangrene Allergic rhinitis due to weed pollen Immunization counseling Other specified counseling Severe persistent asthma without complication Gastroesophageal reflux disease without esophagitis Esophageal reflux Nocturnal hypoxemia Hypoxemia [facility]* Diagnosis Screening for prostate cancer- Primary Special screening for malignant neoplasm of prostate HLD (hyperlipidemia) Other and unspecified hyperlipidemia documented in this encounter [facility] note* Diagnosis Onset Date Resolution Status Dizziness acute Essential hypertension chron ic Non-ischemic cardiomyopathy resolved [facility] Work [facility]* Diagnosis Essential hypertension- Primary Unspecified essential hypertension Mixed hyperlipidemia Gastroesophageal reflux disease without esophagitis Esophageal reflux documented in this encounter [facility] note* Diagnosis Shortness of breath- Primary documented in this encounter [facility] note* Diagnosis Convulsive syncope- Primary Syncope and collapse Syncope, unspecified syncope type documented in this encounter [facility] note* Diagnosis Shortness of breath- Primary documented in this encounter [facility] note* Diagnosis Moderate persistent asthma without complication- Primary Unspecified asthma documented in this encounter [facility] note* Diagnosis Hypertension Unspecified essential hypertension [facility]* Diagnosis Essential hypertension- Primary Unspecified essential hypertension Mixed hyperlipidemia Screen for colon cancer Special screening for malignant neoplasms, colon documented in this encounter [facility] note* Diagnosis Hyperlipidemia, unspecified hyperlipidemia type documented in this encounter [facility] note* Diagnosis Esophageal dysphagia Dysphagia, pharyngoesophageal phase Gastroesophageal reflux disease, unspecified whether esophagitis present Hiatal hernia Diaphragmatic hernia without mention of obstruction or gangrene documented in this encounter [facility] note* Diagnosis Chronic left shoulder pain Pain in joint, shoulder region Left elbow pain Pain in joint, upper arm Neck pain Cervicalgia documented in this encounter [facility] note* Diagnosis Hyperlipidemia, unspecified hyperlipidemia type documented in this encounter [facility] note* Diagnosis 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) Hyperlipidemia, unspecified hyperlipidemia type documented in this encounter [facility] note* Diagnosis Essential hypertension- Primary Unspecified essential hypertension Encounter for immunization Need for other specified prophylactic vaccination against single bacterial disease Hyperlipidemia, unspecified hyperlipidemia type 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) [facility] Screening for prostate cancer- Primary Special screening for malignant neoplasm of prostate HLD (hyperlipidemia) Other and unspecified [facility]lipidemia [facility] Essential hypertension- Primary Unspecified essential hypertension Mixed hyperlipidemia [facility] Diagnosis Coronary artery disease of chil[place] artery of [place]ilkat heart with stable angina pectoris [facility] Diagnosis Essential hypertension- Primary Unspecified essential hypertension HLD (hyperlipidemia) Other and unspecified hyperlipidemia Screening for prostate cancer Special screening for malignant neoplasm of prostate Hyperglycemia Other abnormal glucose [facility] Diagnosis Essential hypertension- Primary Unspecified essential hypertension Mixed hyperlipidemia Hyperglycemia Other abnormal glucose Screen for colon cancer Special screening for malignant neoplasms, colon [facility] Dis[facility] instructions Additional Instructions The cause of your chest pain is not clear. It seemed to improve most with breathing treatment. Please follow-up with your primary care doctor for further evaluation of this. No signs of a heart attack or pneumonia today. Use the inhaler you were given 1 to 2 puffs every 4-6 hours as needed for shortness of breath or wheezing.[facility] Work Phone: Hospital Discharge instructions Additional Instructions Please follow-up with your PCP regarding your blood pressure as well as outpatient stress test.[facility] Work Phone: Hospital Discharge instructions Additional Instructions Thank you for trusting us with your care today! Please take Tylenol (2 pills, 650 mg), ibuprofen (2 pills, 400 mg) every 6 hours as needed for pain and fever control. Please return to the emergency department if your symptoms change or worsen. Please follow with your primary care physician for further outpatient evaluation and management.[facility] Work Phone: Hospital Discharge instructions Additional Instructions Increase fluids at home. Take daily multivitamins. Increase fluids with Gatorade or Powerade. Follow-up with PCP for further testing if you have another near syncopal/passing out episode. Use Tylenol as needed for headache.[facility] Work Phone: Hospital Discharge instructions Additional Instructions Follow-up with your doctor in the outpatient setting. Ensure that you are drinking plenty of fluids. Return with worsening symptoms or other concerns.[facility] Work Phone: Instructions* Name Dates Details Patient Instructions Indication:Nonsmoker Start:01-Jan-2021 Instruction Type:Provider Instructions for Treatment How to Access Health Informa tion Online using Patient Portal and [employer] Apps Indication:Nonsmoker Start:01-Jan-2021 Instruction Type:Patient Education How to access health informa tion online Indication:BMI 27.0-27.9,adult Start:07-Sep-2020 Instruction Type:Patient Education How to access health informa tion online - Detail Indication:BMI 27.0-27.9,adult Start:07-Sep-2020 Instruction Type:Patient Education Patient Instructions Indication:BMI 27.0-27.9,adult Start:07-Sep-2020 Instruction Type:Provider Instructions for Treatment How to access health informa tion online Indication:Nonsmoker Start:31-Aug-2020 Instruction Type:Patient Education How to access health informa tion online - Detail Indication:Nonsmoker Start:31-Aug-2020 Instruction Type:Patient Education Patient Instructions Indication:Nonsmoker Start:31-Aug-2020 Instruction Type:Provider Instructions for Treatment How to access health informa tion online Indication:Nonsmoker Start:31-Jul-2020 Instruction Type:Patient Education How to access health informa tion online - Detail Indication:Nonsmoker Start:31-Jul-2020 Instruction Type:Patient Education Patient Instructions Indication:Nonsmoker Start:31-Jul-2020 Instruction Type:Provider Instructions for Treatment How to access health informa tion online Indication:Nonsmoker Start:17-Jun-2020 Instruction Type:Patient Education How to access health informa tion online - Detail Indication:Nonsmoker Start:17-Jun-2020 Instruction Type:Patient Education Patient Instructions Indication:BMI 27.0-27.9,adult Start:17-Jun-2020 Instruction Type:Provider Instructions for Treatment How to access health informa tion online Indication:Nonsmoker Start:09-Jun-2020 Instruction Type:Patient Education How to access health informa tion online - Detail Indication:Nonsmoker Start:09-Jun-2020 Instruction Type:Patient Education Patient Instructions Indication:Nonsmoker Start:09-Jun-2020 Instruction Type:Provider Instructions for Treatment [facility]; [facility] Work Phone: Instructions* Name Dates Details Patient Instructions Indication:Nonsmoker Start:01-Jan-2021 Instruction Type:Provider Instructions for Treatment How to Access Health Informa tion Online using Patient Portal and [employer] Apps Indication:Nonsmoker Start:01-Jan-2021 Instruction Type:Patient Education How to access health informa tion online Indication:BMI 27.0-27.9,adult Start:07-Sep-2020 Instruction Type:Patient Education How to access health informa tion online - Detail Indication:BMI 27.0-27.9,adult Start:07-Sep-2020 Instruction Type:Patient Education Patient Instructions Indication:BMI 27.0-27.9,adult Start:07-Sep-2020 Instruction Type:Provider Instructions for Treatment How to access health informa tion online Indication:Nonsmoker Start:31-Aug-2020 Instruction Type:Patient Education How to access health informa tion online - Detail Indication:Nonsmoker Start:31-Aug-2020 Instruction Type:Patient Education Patient Instructions Indication:Nonsmoker Start:31-Aug-2020 Instruction Type:Provider Instructions for Treatment How to access health informa tion online Indication:Nonsmoker Start:31-Jul-2020 Instruction Type:Patient Education How to access health informa tion online - Detail Indication:Nonsmoker Start:31-Jul-2020 Instruction Type:Patient Education Patient Instructions Indication:Nonsmoker Start:31-Jul-2020 Instruction Type:Provider Instructions for Treatment How to access health informa tion online Indication:Nonsmoker Start:17-Jun-2020 Instruction Type:Patient Education How to access health informa tion online - Detail Indication:Nonsmoker Start:17-Jun-2020 Instruction Type:Patient Education Patient Instructions Indication:BMI 27.0-27.9,adult Start:17-Jun-2020 Instruction Type:Provider Instructions for Treatment How to access health informa tion online Indication:Nonsmoker Start:09-Jun-2020 Instruction Type:Patient Education How to access health informa tion online - Detail Indication:Nonsmoker Start:09-Jun-2020 Instruction Type:Patient Education Patient Instructions Indication:Nonsmoker Start:09-Jun-2020 Instruction Type:Provider Instructions for Treatment [facility]; [facility] Work Phone: Instructions* Name Dates Details Patient Instructions Indication:BMI 27.0-27.9,adult Start:17-Mar-2021 Instruction Type:Provider Instructions for Treatment How to Access Health Informa tion Online using Patient Portal and [employer] Apps Indication:Nonsmoker Start:17-Mar-2021 Instruction Type:Patient Education Patient Instructions Indication:Nonsmoker Start:01-Jan-2021 Instruction Type:Provider Instructions for Treatment How to Access Health Informa tion Online using Patient Portal and [employer] Apps Indication:Nonsmoker Start:01-Jan-2021 Instruction Type:Patient Education How to access health informa tion online Indication:BMI 27.0-27.9,adult Start:07-Sep-2020 Instruction Type:Patient Education How to access health informa tion online - Detail Indication:BMI 27.0-27.9,adult Start:07-Sep-2020 Instruction Type:Patient Education Patient Instructions Indication:BMI 27.0-27.9,adult Start:07-Sep-2020 Instruction Type:Provider Instructions for Treatment How to access health informa tion online Indication:Nonsmoker Start:31-Aug-2020 Instruction Type:Patient Education How to access health informa tion online - Detail Indication:Nonsmoker Start:31-Aug-2020 Instruction Type:Patient Education Patient Instructions Indication:Nonsmoker Start:31-Aug-2020 Instruction Type:Provider Instructions for Treatment How to access health informa tion online Indication:Nonsmoker Start:31-Jul-2020 Instruction Type:Patient Education How to access health informa tion online - Detail Indication:Nonsmoker Start:31-Jul-2020 Instruction Type:Patient Education Patient Instructions Indication:Nonsmoker Start:31-Jul-2020 Instruction Type:Provider Instructions for Treatment How to access health informa tion online Indication:Nonsmoker Start:17-Jun-2020 Instruction Type:Patient Education How to access health informa tion online - Detail Indication:Nonsmoker Start:17-Jun-2020 Instruction Type:Patient Education Patient Instructions Indication:BMI 27.0-27.9,adult Start:17-Jun-2020 Instruction Type:Provider Instructions for Treatment How to access health informa tion online Indication:Nonsmoker Start:09-Jun-2020 Instruction Type:Patient Education How to access health informa tion online - Detail Indication:Nonsmoker Start:09-Jun-2020 Instruction Type:Patient Education Patient Instructions Indication:Nonsmoker Start:09-Jun-2020 Instruction Type:Provider Instructions for Treatment [facility]; [facility] Work Phone: Instructions* Name Dates Details Patient Instructions Indication:BMI 27.0-27.9,adult Start:26-Jan-2022 Instruction Type:Provider Instructions for Treatment How to Access Health Informa tion Online using Patient Portal and [employer] Apps Indication:BMI 27.0-27.9,adult Start:26-Jan-2022 Instruction Type:Patient Education Patient Instructions Indication:BMI 27.0-27.9,adult Start:17-Mar-2021 Instruction Type:Provider Instructions for Treatment How to Access Health Informa tion Online using Patient Portal and [employer] Apps Indication:Nonsmoker Start:17-Mar-2021 Instruction Type:Patient Education Patient Instructions Indication:Nonsmoker Start:01-Jan-2021 Instruction Type:Provider Instructions for Treatment How to Access Health Informa tion Online using Patient Portal and [employer] Apps Indication:Nonsmoker Start:01-Jan-2021 Instruction Type:Patient Education How to access health informa tion online Indication:BMI 27.0-27.9,adult Start:07-Sep-2020 Instruction Type:Patient Education How to access health informa tion online - Detail Indication:BMI 27.0-27.9,adult Start:07-Sep-2020 Instruction Type:Patient Education Patient Instructions Indication:BMI 27.0-27.9,adult Start:07-Sep-2020 Instruction Type:Provider Instructions for Treatment How to access health informa tion online Indication:Nonsmoker Start:31-Aug-2020 Instruction Type:Patient Education How to access health informa tion online - Detail Indication:Nonsmoker Start:31-Aug-2020 Instruction Type:Patient Education Patient Instructions Indication:Nonsmoker Start:31-Aug-2020 Instruction Type:Provider Instructions for Treatment How to access health informa tion online Indication:Nonsmoker Start:31-Jul-2020 Instruction Type:Patient Education How to access health informa tion online - Detail Indication:Nonsmoker Start:31-Jul-2020 Instruction Type:Patient Education Patient Instructions Indication:Nonsmoker Start:31-Jul-2020 Instruction Type:Provider Instructions for Treatment How to access health informa tion online Indication:Nonsmoker Start:17-Jun-2020 Instruction Type:Patient Education How to access health informa tion online - Detail Indication:Nonsmoker Start:17-Jun-2020 Instruction Type:Patient Education Patient Instructions Indication:BMI 27.0-27.9,adult Start:17-Jun-2020 Instruction Type:Provider Instructions for Treatment How to access health informa tion online Indication:Nonsmoker Start:09-Jun-2020 Instruction Type:Patient Education How to access health informa tion online - Detail Indication:Nonsmoker Start:09-Jun-2020 Instruction Type:Patient Education Patient Instructions Indication:Nonsmoker Start:09-Jun-2020 Instruction Type:Provider Instructions for Treatment [facility]; [facility] Work Phone: Instructions* Name Dates Details Patient Instructions Indication:BMI 27.0-27.9,adult Start:26-Jan-2022 Instruction Type:Provider Instructions for Treatment How to Access Health Informa tion Online using Patient Portal and [employer] Apps Indication:BMI 27.0-27.9,adult Start:26-Jan-2022 Instruction Type:Patient Education Patient Instructions Indication:BMI 27.0-27.9,adult Start:17-Mar-2021 Instruction Type:Provider Instructions for Treatment How to Access Health Informa tion Online using Patient Portal and [employer] Apps Indication:Nonsmoker Start:17-Mar-2021 Instruction Type:Patient Education Patient Instructions Indication:Nonsmoker Start:01-Jan-2021 Instruction Type:Provider Instructions for Treatment How to Access Health Informa tion Online using Patient Portal and [employer] Apps Indication:Nonsmoker Start:01-Jan-2021 Instruction Type:Patient Education How to access health informa tion online Indication:BMI 27.0-27.9,adult Start:07-Sep-2020 Instruction Type:Patient Education How to access health informa tion online - Detail Indication:BMI 27.0-27.9,adult Start:07-Sep-2020 Instruction Type:Patient Education Patient Instructions Indication:BMI 27.0-27.9,adult Start:07-Sep-2020 Instruction Type:Provider Instructions for Treatment How to access health informa tion online Indication:Nonsmoker Start:31-Aug-2020 Instruction Type:Patient Education How to access health informa tion online - Detail Indication:Nonsmoker Start:31-Aug-2020 Instruction Type:Patient Education Patient Instructions Indication:Nonsmoker Start:31-Aug-2020 Instruction Type:Provider Instructions for Treatment How to access health informa tion online Indication:Nonsmoker Start:31-Jul-2020 Instruction Type:Patient Education How to access health informa tion online - Detail Indication:Nonsmoker Start:31-Jul-2020 Instruction Type:Patient Education Patient Instructions Indication:Nonsmoker Start:31-Jul-2020 Instruction Type:Provider Instructions for Treatment How to access health informa tion online Indication:Nonsmoker Start:17-Jun-2020 Instruction Type:Patient Education How to access health informa tion online - Detail Indication:Nonsmoker Start:17-Jun-2020 Instruction Type:Patient Education Patient Instructions Indication:BMI 27.0-27.9,adult Start:17-Jun-2020 Instruction Type:Provider Instructions for Treatment How to access health informa tion online Indication:Nonsmoker Start:09-Jun-2020 Instruction Type:Patient Education How to access health informa tion online - Detail Indication:Nonsmoker Start:09-Jun-2020 Instruction Type:Patient Education Patient Instructions Indication:Nonsmoker Start:09-Jun-2020 Instruction Type:Provider Instructions for Treatment [facility]; [facility] Work Phone: Instructions* Name Dates Details Patient Instructions Indication:BMI 27.0-27.9,adult Start:26-Jan-2022 Instruction Type:Provider Instructions for Treatment How to Access Health Informa tion Online using Patient Portal and [employer] Apps Indication:BMI 27.0-27.9,adult Start:26-Jan-2022 Instruction Type:Patient Education Patient Instructions Indication:BMI 27.0-27.9,adult Start:17-Mar-2021 Instruction Type:Provider Instructions for Treatment How to Access Health Informa tion Online using Patient Portal and [employer] Apps Start:17-Mar-2021 Instruction Type:Patient Education Patient Instructions Start:01-Jan-2021 Instruction Type:Provider Instructions for Treatment How to Access Health Informa tion Online using Patient Portal and [employer] Apps Start:01-Jan-2021 Instruction Type:Patient Education How to access health informa tion online Indication:BMI 27.0-27.9,adult Start:07-Sep-2020 Instruction Type:Patient Education How to access health informa tion online - Detail Indication:BMI 27.0-27.9,adult Start:07-Sep-2020 Instruction Type:Patient Education Patient Instructions Indication:BMI 27.0-27.9,adult Start:07-Sep-2020 Instruction Type:Provider Instructions for Treatment How to access health informa tion online Start:31-Aug-2020 Instruction Type:Patient Education How to access health informa tion online - Detail Start:31-Aug-2020 Instruction Type:Patient Education Patient Instructions Start:31-Aug-2020 Instruction Type:Provider Instructions for Treatment How to access health informa tion online Start:31-Jul-2020 Instruction Type:Patient Education How to access health informa tion online - Detail Start:31-Jul-2020 Instruction Type:Patient Education Patient Instructions Start:31-Jul-2020 Instruction Type:Provider Instructions for Treatment How to access health informa tion online Start:17-Jun-2020 Instruction Type:Patient Education How to access health informa tion online - Detail Start:17-Jun-2020 Instruction Type:Patient Education Patient Instructions Indication:BMI 27.0-27.9,adult Start:17-Jun-2020 Instruction Type:Provider Instructions for Treatment How to access health informa tion online Start:09-Jun-2020 Instruction Type:Patient Education How to access health informa tion online - Detail Start:09-Jun-2020 Instruction Type:Patient Education Patient Instructions Start:09-Jun-2020 Instruction Type:Provider Instructions for Treatment [facility]; [facility] Work Phone: Instructions* Name Dates Details Patient Instructions Indication:BMI 26.0-26.9,adult Start:11-May-2022 Instruction Type:Provider Instructions for Treatment How to Access Health Informa tion Online using Patient Portal and [employer] Apps Indication:BMI 26.0-26.9,adult Start:11-May-2022 Instruction Type:Patient Education Patient Instructions Indication:BMI 27.0-27.9,adult Start:26-Jan-2022 Instruction Type:Provider Instructions for Treatment How to Access Health Informa tion Online using Patient Portal and [employer] Apps Indication:BMI 27.0-27.9,adult Start:26-Jan-2022 Instruction Type:Patient Education Patient Instructions Indication:BMI 27.0-27.9,adult Start:17-Mar-2021 Instruction Type:Provider Instructions for Treatment How to Access Health Informa tion Online using Patient Portal and [employer] Apps Indication:Nonsmoker Start:17-Mar-2021 Instruction Type:Patient Education Patient Instructions Indication:Nonsmoker Start:2-Apr-2021 Instruction Type:Provider Instructions for Treatment How to Access Health Informa tion Online using Patient Portal and [employer] Apps Indication:Nonsmoker Start:01-Jan-2021 Instruction Type:Patient Education How to access health informa tion online Indication:BMI 27.0-27.9,adult Start:07-Sep-2020 Instruction Type:Patient Education How to access health informa tion online - Detail Indication:BMI 27.0-27.9,adult Start:07-Sep-2020 Instruction Type:Patient Education Patient Instructions Indication:BMI 27.0-27.9,adult Start:07-Sep-2020 Instruction Type:Provider Instructions for Treatment How to access health informa tion online Indication:Nonsmoker Start:31-Aug-2020 Instruction Type:Patient Education How to access health informa tion online - Detail Indication:Nonsmoker Start:31-Aug-2020 Instruction Type:Patient Education Patient Instructions Indication:Nonsmoker Start:31-Aug-2020 Instruction Type:Provider Instructions for Treatment How to access health informa tion online Indication:Nonsmoker Start:31-Jul-2020 Instruction Type:Patient Education How to access health informa tion online - Detail Indication:Nonsmoker Start:31-Jul-2020 Instruction Type:Patient Education Patient Instructions Indication:Nonsmoker Start:31-Jul-2020 Instruction Type:Provider Instructions for Treatment How to access health informa tion online Indication:Nonsmoker Start:17-Jun-2020 Instruction Type:Patient Education How to access health informa tion online - Detail Indication:Nonsmoker Start:17-Jun-2020 Instruction Type:Patient Education Patient Instructions Indication:BMI 27.0-27.9,adult Start:17-Jun-2020 Instruction Type:Provider Instructions for Treatment How to access health informa tion online Indication:Nonsmoker Start:09-Jun-2020 Instruction Type:Patient Education How to access health informa tion online - Detail Indication:Nonsmoker Start:09-Jun-2020 Instruction Type:Patient Education Patient Instructions Indication:Nonsmoker Start:09-Jun-2020 Instruction Type:Provider Instructions for Treatment [facility]; [facility] Work Phone: Instructions* Name Dates Details Patient Instructions Indication:Hypertension Start:04-Jul-2022 Instruction Type:Provider Instructions for Treatment How to Access Health Informa tion Online using Patient Portal and [employer] Apps Indication:Hypertension Start:04-Jul-2022 Instruction Type:Patient Education Patient Instructions Indication:BMI 26.0-26.9,adult Start:15-Jun-2022 Instruction Type:Provider Instructions for Treatment How to Access Health Informa tion Online using Patient Portal and [employer] Apps Indication:BMI 26.0-26.9,adult Start:15-Jun-2022 Instruction Type:Patient Education How to Access Health Informa tion Online using Patient Portal and [employer] Apps Indication:Nonsmoker Start:31-May-2022 Instruction Type:Patient Education Patient Instructions Indication:Nonsmoker Start:31-May-2022 Instruction Type:Provider Instructions for Treatment Patient Instructions Indication:BMI 26.0-26.9,adult Start:27-May-2022 Instruction Type:Provider Instructions for Treatment How to Access Health Informa tion Online using Patient Portal and [employer] Apps Indication:BMI 26.0-26.9,adult Start:27-May-2022 Instruction Type:Patient Education Patient Instructions Indication:BMI 26.0-26.9,adult Start:11-May-2022 Instruction Type:Provider Instructions for Treatment How to Access Health Informa tion Online using Patient Portal and [employer] Apps Indication:BMI 26.0-26.9,adult Start:11-May-2022 Instruction Type:Patient Education Patient Instructions Indication:BMI 27.0-27.9,adult Start:26-Jan-2022 Instruction Type:Provider Instructions for Treatment How to Access Health Informa tion Online using Patient Portal and [employer] Apps Indication:BMI 27.0-27.9,adult Start:26-Jan-2022 Instruction Type:Patient Education Patient Instructions Indication:BMI 27.0-27.9,adult Start:17-Mar-2021 Instruction Type:Provider Instructions for Treatment How to Access Health Informa tion Online using Patient Portal and [employer] Apps Indication:Nonsmoker Start:17-Mar-2021 Instruction Type:Patient Education Patient Instructions Indication:Nonsmoker Start:01-Jan-2021 Instruction Type:Provider Instructions for Treatment How to Access Health Informa tion Online using Patient Portal and [employer] Apps Indication:Nonsmoker Start:01-Jan-2021 Instruction Type:Patient Education How to access health informa tion online Indication:BMI 27.0-27.9,adult Start:07-Sep-2020 Instruction Type:Patient Education How to access health informa tion online - Detail Indication:BMI 27.0-27.9,adult Start:07-Sep-2020 Instruction Type:Patient Education Patient Instructions Indication:BMI 27.0-27.9,adult Start:07-Sep-2020 Instruction Type:Provider Instructions for Treatment How to access health informa tion online Indication:Nonsmoker Start:31-Aug-2020 Instruction Type:Patient Education How to access health informa tion online - Detail Indication:Nonsmoker Start:31-Aug-2020 Instruction Type:Patient Education Patient Instructions Indication:Nonsmoker Start:31-Aug-2020 Instruction Type:Provider Instructions for Treatment How to access health informa tion online Indication:Nonsmoker Start:31-Jul-2020 Instruction Type:Patient Education How to access health informa tion online - Detail Indication:Nonsmoker Start:31-Jul-2020 Instruction Type:Patient Education Patient Instructions Indication:Nonsmoker Start:31-Jul-2020 Instruction Type:Provider Instructions for Treatment How to access health informa tion online Indication:Nonsmoker Start:17-Jun-2020 Instruction Type:Patient Education How to access health informa tion online - Detail Indication:Nonsmoker Start:17-Jun-2020 Instruction Type:Patient Education Patient Instructions Indication:BMI 27.0-27.9,adult Start:17-Jun-2020 Instruction Type:Provider Instructions for Treatment How to access health informa tion online Indication:Nonsmoker Start:09-Jun-2020 Instruction Type:Patient Education How to access health informa tion online - Detail Indication:Nonsmoker Start:09-Jun-2020 Instruction Type:Patient Education Patient Instructions Indication:Nonsmoker Start:09-Jun-2020 Instruction Type:Provider Instructions for Treatment [facility]; [facility] Work Phone: Instructions* Name Dates Details Patient Instructions Indication:BMI 26.0-26.9,adult Start:15-Jun-2022 Instruction Type:Provider Instructions for Treatment How to Access Health Informa tion Online using Patient Portal and [employer] Apps Indication:BMI 26.0-26.9,adult Start:15-Jun-2022 Instruction Type:Patient Education How to Access Health Informa tion Online using Patient Portal and [employer] Apps Indication:Nonsmoker Start:31-May-2022 Instruction Type:Patient Education Patient Instructions Indication:Nonsmoker Start:31-May-2022 Instruction Type:Provider Instructions for Treatment Patient Instructions Indication:BMI 26.0-26.9,adult Start:27-May-2022 Instruction Type:Provider Instructions for Treatment How to Access Health Informa tion Online using Patient Portal and [employer] Apps Indication:BMI 26.0-26.9,adult Start:27-May-2022 Instruction Type:Patient Education Patient Instructions Indication:BMI 26.0-26.9,adult Start:11-May-2022 Instruction Type:Provider Instructions for Treatment How to Access Health Informa tion Online using Patient Portal and [employer] Apps Indication:BMI 26.0-26.9,adult Start:11-May-2022 Instruction Type:Patient Education Patient Instructions Indication:BMI 27.0-27.9,adult Start:26-Jan-2022 Instruction Type:Provider Instructions for Treatment How to Access Health Informa tion Online using Patient Portal and [employer] Apps Indication:BMI 27.0-27.9,adult Start:26-Jan-2022 Instruction Type:Patient Education Patient Instructions Indication:BMI 27.0-27.9,adult Start:17-Mar-2021 Instruction Type:Provider Instructions for Treatment How to Access Health Informa tion Online using Patient Portal and [employer] Apps Indication:Nonsmoker Start:17-Mar-2021 Instruction Type:Patient Education Patient Instructions Indication:Nonsmoker Start:01-Jan-2021 Instruction Type:Provider Instructions for Treatment How to Access Health Informa tion Online using Patient Portal and [employer]rd [employer] Apps Indication:Nonsmoker Start:01-Jan-2021 Instruction Type:Patient Education How to access health informa tion online Indication:BMI 27.0-27.9,adult Start:07-Sep-2020 Instruction Type:Patient Education How to access health informa tion online - Detail Indication:BMI 27.0-27.9,adult Start:07-Sep-2020 Instruction Type:Patient Education Patient Instructions Indication:BMI 27.0-27.9,adult Start:07-Sep-2020 Instruction Type:Provider Instructions for Treatment How to access health informa tion online Indication:Nonsmoker Start:31-Aug-2020 Instruction Type:Patient Education How to access health informa tion online - Detail Indication:Nonsmoker Start:31-Aug-2020 Instruction Type:Patient Education Patient Instructions Indication:Nonsmoker Start:31-Aug-2020 Instruction Type:Provider Instructions for Treatment How to access health informa tion online Indication:Nonsmoker Start:31-Jul-2020 Instruction Type:Patient Education How to access health informa tion online - Detail Indication:Nonsmoker Start:31-Jul-2020 Instruction Type:Patient Education Patient Instructions Indication:Nonsmoker Start:31-Jul-2020 Instruction Type:Provider Instructions for Treatment How to access health informa tion online Indication:Nonsmoker Start:17-Jun-2020 Instruction Type:Patient Education How to access health informa tion online - Detail Indication:Nonsmoker Start:17-Jun-2020 Instruction Type:Patient Education Patient Instructions Indication:BMI 27.0-27.9,adult Start:17-Jun-2020 Instruction Type:Provider Instructions for Treatment How to access health informa tion online Indication:Nonsmoker Start:09-Jun-2020 Instruction Type:Patient Education How to access health informa tion online - Detail Indication:Nonsmoker Start:09-Jun-2020 Instruction Type:Patient Education Patient Instructions Indication:Nonsmoker Start:09-Jun-2020 Instruction Type:Provider Instructions for Treatment [facility]; [facility] Work Phone: Instructions* Name Dates Details Patient Instructions Indication:BMI 26.0-26.9,adult Start:13-Jul-2022 Instruction Type:Provider Instructions for Treatment How to Access Health Informa tion Online using Patient Portal and [employer] Apps Indication:BMI 26.0-26.9,adult Start:13-Jul-2022 Instruction Type:Patient Education Patient Instructions Indication:BMI 26.0-26.9,adult Start:15-Jun-2022 Instruction Type:Provider Instructions for Treatment How to Access Health Informa tion Online using Patient Portal and [employer] Apps Indication:BMI 26.0-26.9,adult Start:15-Jun-2022 Instruction Type:Patient Education How to Access Health Informa tion Online using Patient Portal and [employer] Apps Indication:Nonsmoker Start:31-May-2022 Instruction Type:Patient Education Patient Instructions Indication:Nonsmoker Start:31-May-2022 Instruction Type:Provider Instructions for Treatment Patient Instructions Indication:BMI 26.0-26.9,adult Start:27-May-2022 Instruction Type:Provider Instructions for Treatment How to Access Health Informa tion Online using Patient Portal and [employer] Apps Indication:BMI 26.0-26.9,adult Start:27-May-2022 Instruction Type:Patient Education Patient Instructions Indication:BMI 26.0-26.9,adult Start:11-May-2022 Instruction Type:Provider Instructions for Treatment How to Access Health Informa tion Online using Patient Portal and [employer] Apps Indication:BMI 26.0-26.9,adult Start:11-May-2022 Instruction Type:Patient Education Patient Instructions Indication:BMI 27.0-27.9,adult Start:26-Jan-2022 Instruction Type:Provider Instructions for Treatment How to Access Health Informa tion Online using Patient Portal and [employer] Apps Indication:BMI 27.0-27.9,adult Start:26-Jan-2022 Instruction Type:Patient Education Patient Instructions Indication:BMI 27.0-27.9,adult Start:17-Mar-2021 Instruction Type:Provider Instructions for Treatment How to Access Health Informa tion Online using Patient Portal and [employer] Apps Indication:Nonsmoker Start:17-Mar-2021 Instruction Type:Patient Education Patient Instructions Indication:Nonsmoker Start:01-Jan-2021 Instruction Type:Provider Instructions for Treatment How to Access Health Informa tion Online using Patient Portal and [employer] Apps Indication:Nonsmoker Start:01-Jan-2021 Instruction Type:Patient Education How to access health informa tion online Indication:BMI 27.0-27.9,adult Start:07-Sep-2020 Instruction Type:Patient Education How to access health informa tion online - Detail Indication:BMI 27.0-27.9,adult Start:07-Sep-2020 Instruction Type:Patient Education Patient Instructions Indication:BMI 27.0-27.9,adult Start:07-Sep-2020 Instruction Type:Provider Instructions for Treatment How to access health informa tion online Indication:Nonsmoker Start:31-Aug-2020 Instruction Type:Patient Education How to access health informa tion online - Detail Indication:Nonsmoker Start:31-Aug-2020 Instruction Type:Patient Education Patient Instructions Indication:Nonsmoker Start:31-Aug-2020 Instruction Type:Provider Instructions for Treatment How to access health informa tion online Indication:Nonsmoker Start:31-Jul-2020 Instruction Type:Patient Education How to access health informa tion online - Detail Indication:Nonsmoker Start:31-Jul-2020 Instruction Type:Patient Education Patient Instructions Indication:Nonsmoker Start:31-Jul-2020 Instruction Type:Provider Instructions for Treatment How to access health informa tion online Indication:Nonsmoker Start:17-Jun-2020 Instruction Type:Patient Education How to access health informa tion online - Detail Indication:Nonsmoker Start:17-Jun-2020 Instruction Type:Patient Education Patient Instructions Indication:BMI 27.0-27.9,adult Start:17-Jun-2020 Instruction Type:Provider Instructions for Treatment How to access health informa tion online Indication:Nonsmoker Start:09-Jun-2020 Instruction Type:Patient Education How to access health informa tion online - Detail Indication:Nonsmoker Start:09-Jun-2020 Instruction Type:Patient Education Patient Instructions Indication:Nonsmoker Start:09-Jun-2020 Instruction Type:Provider Instructions for Treatment [facility]; [facility] Work Phone: Instructions* Name Dates Details Patient Instructions Indication:BMI 26.0-26.9,adult Start:13-Jul-2022 Instruction Type:Provider Instructions for Treatment How to Access Health Informa tion Online using Patient Portal and [employer]rd [employer] Apps Indication:BMI 26.0-26.9,adult Start:13-Jul-2022 Instruction Type:Patient Education Patient Instructions Indication:BMI 26.0-26.9,adult Start:15-Jun-2022 Instruction Type:Provider Instructions for Treatment How to Access Health Informa tion Online using Patient Portal and [employer] Apps Indication:BMI 26.0-26.9,adult Start:15-Jun-2022 Instruction Type:Patient Education How to Access Health Informa tion Online using Patient Portal and [employer] Apps Indication:Nonsmoker Start:31-May-2022 Instruction Type:Patient Education Patient Instructions Indication:Nonsmoker Start:31-May-2022 Instruction Type:Provider Instructions for Treatment Patient Instructions Indication:BMI 26.0-26.9,adult Start:27-May-2022 Instruction Type:Provider Instructions for Treatment How to Access Health Informa tion Online using Patient Portal and [employer] Apps Indication:BMI 26.0-26.9,adult Start:27-May-2022 Instruction Type:Patient Education Patient Instructions Indication:BMI 26.0-26.9,adult Start:11-May-2022 Instruction Type:Provider Instructions for Treatment How to Access Health Informa tion Online using Patient Portal and [employer] Apps Indication:BMI 26.0-26.9,adult Start:11-May-2022 Instruction Type:Patient Education Patient Instructions Indication:BMI 27.0-27.9,adult Start:26-Jan-2022 Instruction Type:Provider Instructions for Treatment How to Access Health Informa tion Online using Patient Portal and [employer] Apps Indication:BMI 27.0-27.9,adult Start:26-Jan-2022 Instruction Type:Patient Education Patient Instructions Indication:BMI 27.0-27.9,adult Start:17-Mar-2021 Instruction Type:Provider Instructions for Treatment How to Access Health Informa tion Online using Patient Portal and [employer] Apps Indication:Nonsmoker Start:17-Mar-2021 Instruction Type:Patient Education Patient Instructions Indication:Nonsmoker Start:01-Jan-2021 Instruction Type:Provider Instructions for Treatment How to Access Health Informa tion Online using Patient Portal and [employer] Apps Indication:Nonsmoker Start:01-Jan-2021 Instruction Type:Patient Education How to access health informa tion online Indication:BMI 27.0-27.9,adult Start:07-Sep-2020 Instruction Type:Patient Education How to access health informa tion online - Detail Indication:BMI 27.0-27.9,adult Start:07-Sep-2020 Instruction Type:Patient Education Patient Instructions Indication:BMI 27.0-27.9,adult Start:07-Sep-2020 Instruction Type:Provider Instructions for Treatment How to access health informa tion online Indication:Nonsmoker Start:31-Aug-2020 Instruction Type:Patient Education How to access health informa tion online - Detail Indication:Nonsmoker Start:31-Aug-2020 Instruction Type:Patient Education Patient Instructions Indication:Nonsmoker Start:31-Aug-2020 Instruction Type:Provider Instructions for Treatment How to access health informa tion online Indication:Nonsmoker Start:31-Jul-2020 Instruction Type:Patient Education How to access health informa tion online - Detail Indication:Nonsmoker Start:31-Jul-2020 Instruction Type:Patient Education Patient Instructions Indication:Nonsmoker Start:31-Jul-2020 Instruction Type:Provider Instructions for Treatment How to access health informa tion online Indication:Nonsmoker Start:17-Jun-2020 Instruction Type:Patient Education How to access health informa tion online - Detail Indication:Nonsmoker Start:17-Jun-2020 Instruction Type:Patient Education Patient Instructions Indication:BMI 27.0-27.9,adult Start:17-Jun-2020 Instruction Type:Provider Instructions for Treatment How to access health informa tion online Indication:Nonsmoker Start:09-Jun-2020 Instruction Type:Patient Education How to access health informa tion online - Detail Indication:Nonsmoker Start:09-Jun-2020 Instruction Type:Patient Education Patient Instructions Indication:Nonsmoker Start:09-Jun-2020 Instruction Type:Provider Instructions for Treatment [facility]; [facility] Work Phone: Instructions* Name Dates Details Patient Instructions Indication:BMI 26.0-26.9,adult Start:13-Jul-2022 Instruction Type:Provider Instructions for Treatment How to Access Health Informa tion Online using Patient Portal and [employer] Apps Indication:BMI 26.0-26.9,adult Start:13-Jul-2022 Instruction Type:Patient Education Patient Instructions Indication:BMI 26.0-26.9,adult Start:15-Jun-2022 Instruction Type:Provider Instructions for Treatment How to Access Health Informa tion Online using Patient Portal and [employer] Apps Indication:BMI 26.0-26.9,adult Start:15-Jun-2022 Instruction Type:Patient Education How to Access Health Informa tion Online using Patient Portal and [employer] Apps Indication:Nonsmoker Start:31-May-2022 Instruction Type:Patient Education Patient Instructions Indication:Nonsmoker Start:31-May-2022 Instruction Type:Provider Instructions for Treatment Patient Instructions Indication:BMI 26.0-26.9,adult Start:27-May-2022 Instruction Type:Provider Instructions for Treatment How to Access Health Informa tion Online using Patient Portal and [employer] Apps Indication:BMI 26.0-26.9,adult Start:27-May-2022 Instruction Type:Patient Education Patient Instructions Indication:BMI 26.0-26.9,adult Start:11-May-2022 Instruction Type:Provider Instructions for Treatment How to Access Health Informa tion Online using Patient Portal and [employer] Apps Indication:BMI 26.0-26.9,adult Start:11-May-2022 Instruction Type:Patient Education Patient Instructions Indication:BMI 27.0-27.9,adult Start:26-Jan-2022 Instruction Type:Provider Instructions for Treatment How to Access Health Informa tion Online using Patient Portal and [employer] Apps Indication:BMI 27.0-27.9,adult Start:26-Jan-2022 Instruction Type:Patient Education Patient Instructions Indication:BMI 27.0-27.9,adult Start:17-Mar-2021 Instruction Type:Provider Instructions for Treatment How to Access Health Informa tion Online using Patient Portal and [employer] Apps Indication:Nonsmoker Start:17-Mar-2021 Instruction Type:Patient Education Patient Instructions Indication:Nonsmoker Start:01-Jan-2021 Instruction Type:Provider Instructions for Treatment How to Access Health Informa tion Online using Patient Portal and [employer] Apps Indication:Nonsmoker Start:01-Jan-2021 Instruction Type:Patient Education How to access health informa tion online Indication:BMI 27.0-27.9,adult Start:07-Sep-2020 Instruction Type:Patient Education How to access health informa tion online - Detail Indication:BMI 27.0-27.9,adult Start:07-Sep-2020 Instruction Type:Patient Education Patient Instructions Indication:BMI 27.0-27.9,adult Start:07-Sep-2020 Instruction Type:Provider Instructions for Treatment How to access health informa tion online Indication:Nonsmoker Start:31-Aug-2020 Instruction Type:Patient Education How to access health informa tion online - Detail Indication:Nonsmoker Start:31-Aug-2020 Instruction Type:Patient Education Patient Instructions Indication:Nonsmoker Start:31-Aug-2020 Instruction Type:Provider Instructions for Treatment How to access health informa tion online Indication:Nonsmoker Start:31-Jul-2020 Instruction Type:Patient Education How to access health informa tion online - Detail Indication:Nonsmoker Start:31-Jul-2020 Instruction Type:Patient Education Patient Instructions Indication:Nonsmoker Start:31-Jul-2020 Instruction Type:Provider Instructions for Treatment How to access health informa tion online Indication:Nonsmoker Start:17-Jun-2020 Instruction Type:Patient Education How to access health informa tion online - Detail Indication:Nonsmoker Start:17-Jun-2020 Instruction Type:Patient Education Patient Instructions Indication:BMI 27.0-27.9,adult Start:17-Jun-2020 Instruction Type:Provider Instructions for Treatment How to access health informa tion online Indication:Nonsmoker Start:09-Jun-2020 Instruction Type:Patient Education How to access health informa tion online - Detail Indication:Nonsmoker Start:09-Jun-2020 Instruction Type:Patient Education Patient Instructions Indication:Nonsmoker Start:09-Jun-2020 Instruction Type:Provider Instructions for Treatment [facility]; [facility] Work Phone: Instructions* Name Dates Details Patient Instructions Indication:BMI 26.0-26.9,adult Start:13-Jul-2022 Instruction Type:Provider Instructions for Treatment How to Access Health Informa tion Online using Patient Portal and [employer]rd [employer] Apps Indication:BMI 26.0-26.9,adult Start:13-Jul-2022 Instruction Type:Patient Education Patient Instructions Indication:BMI 26.0-26.9,adult Start:15-Jun-2022 Instruction Type:Provider Instructions for Treatment How to Access Health Informa tion Online using Patient Portal and [employer]rd [employer] Apps Indication:BMI 26.0-26.9,adult Start:15-Jun-2022 Instruction Type:Patient Education How to Access Health Informa tion Online using Patient Portal and [employer]rd [employer] Apps Indication:Nonsmoker Start:31-May-2022 Instruction Type:Patient Education Patient Instructions Indication:Nonsmoker Start:31-May-2022 Instruction Type:Provider Instructions for Treatment Patient Instructions Indication:BMI 26.0-26.9,adult Start:27-May-2022 Instruction Type:Provider Instructions for Treatment How to Access Health Informa tion Online using Patient Portal and [employer]rd [employer] Apps Indication:BMI 26.0-26.9,adult Start:27-May-2022 Instruction Type:Patient Education Patient Instructions Indication:BMI 26.0-26.9,adult Start:11-May-2022 Instruction Type:Provider Instructions for Treatment How to Access Health Informa tion Online using Patient Portal and [employer]rd [employer] Apps Indication:BMI 26.0-26.9,adult Start:11-May-2022 Instruction Type:Patient Education Patient Instructions Indication:BMI 27.0-27.9,adult Start:26-Jan-2022 Instruction Type:Provider Instructions for Treatment How to Access Health Informa tion Online using Patient Portal and 3rd [employer] Apps Indication:BMI 27.0-27.9,adult Start:26-Jan-2022 Instruction Type:Patient Education Patient Instructions Indication:BMI 27.0-27.9,adult Start:17-Mar-2021 Instruction Type:Provider Instructions for Treatment How to Access Health Informa tion Online using Patient Portal and [employer]rd [employer] Apps Indication:Nonsmoker Start:17-Mar-2021 Instruction Type:Patient Education Patient Instructions Indication:Nonsmoker Start:01-Jan-2021 Instruction Type:Provider Instructions for Treatment How to Access Health Informa tion Online using Patient Portal and [employer]rd [employer] Apps Indication:Nonsmoker Start:01-Jan-2021 Instruction Type:Patient Education How to access health informa tion online Indication:BMI 27.0-27.9,adult Start:07-Sep-2020 Instruction Type:Patient Education How to access health informa tion online - Detail Indication:BMI 27.0-27.9,adult Start:07-Sep-2020 Instruction Type:Patient Education Patient Instructions Indication:BMI 27.0-27.9,adult Start:07-Sep-2020 Instruction Type:Provider Instructions for Treatment How to access health informa tion online Indication:Nonsmoker Start:31-Aug-2020 Instruction Type:Patient Education How to access health informa tion online - Detail Indication:Nonsmoker Start:31-Aug-2020 Instruction Type:Patient Education Patient Instructions Indication:Nonsmoker Start:31-Aug-2020 Instruction Type:Provider Instructions for Treatment How to access health informa tion online Indication:Nonsmoker Start:31-Jul-2020 Instruction Type:Patient Education How to access health informa tion online - Detail Indication:Nonsmoker Start:31-Jul-2020 Instruction Type:Patient Education Patient Instructions Indication:Nonsmoker Start:31-Jul-2020 Instruction Type:Provider Instructions for Treatment How to access health informa tion online Indication:Nonsmoker Start:17-Jun-2020 Instruction Type:Patient Education How to access health informa tion online - Detail Indication:Nonsmoker Start:17-Jun-2020 Instruction Type:Patient Education Patient Instructions Indication:BMI 27.0-27.9,adult Start:17-Jun-2020 Instruction Type:Provider Instructions for Treatment How to access health informa tion online Indication:Nonsmoker Start:09-Jun-2020 Instruction Type:Patient Education How to access health informa tion online - Detail Indication:Nonsmoker Start:09-Jun-2020 Instruction Type:Patient Education Patient Instructions Indication:Nonsmoker Start:09-Jun-2020 Instruction Type:Provider Instructions for Treatment [facility]; [facility] Work Phone: Instructions* Name Dates Details Patient Instructions Indication:BMI 26.0-26.9,adult Start:19-Sep-2022 Instruction Type:Provider Instructions for Treatment How to Access Health Informa tion Online using Patient Portal and [employer]rd [employer] Apps Indication:BMI 26.0-26.9,adult Start:19-Sep-2022 Instruction Type:Patient Education Patient Instructions Indication:BMI 26.0-26.9,adult Start:13-Jul-2022 Instruction Type:Provider Instructions for Treatment How to Access Health Informa tion Online using Patient Portal and [employer]rd [employer] Apps Indication:BMI 26.0-26.9,adult Start:13-Jul-2022 Instruction Type:Patient Education Patient Instructions Indication:BMI 26.0-26.9,adult Start:15-Jun-2022 Instruction Type:Provider Instructions for Treatment How to Access Health Informa tion Online using Patient Portal and [employer]rd [employer] Apps Indication:BMI 26.0-26.9,adult Start:15-Jun-2022 Instruction Type:Patient Education How to Access Health Informa tion Online using Patient Portal and [employer]rd [employer] Apps Indication:Nonsmoker Start:31-May-2022 Instruction Type:Patient Education Patient Instructions Indication:Nonsmoker Start:31-May-2022 Instruction Type:Provider Instructions for Treatment Patient Instructions Indication:BMI 26.0-26.9,adult Start:27-May-2022 Instruction Type:Provider Instructions for Treatment How to Access Health Informa tion Online using Patient Portal and [employer]rd [employer] Apps Indication:BMI 26.0-26.9,adult Start:27-May-2022 Instruction Type:Patient Education Patient Instructions Indication:BMI 26.0-26.9,adult Start:11-May-2022 Instruction Type:Provider Instructions for Treatment How to Access Health Informa tion Online using Patient Portal and [employer]rd [employer] Apps Indication:BMI 26.0-26.9,adult Start:11-May-2022 Instruction Type:Patient Education Patient Instructions Indication:BMI 27.0-27.9,adult Start:26-Jan-2022 Instruction Type:Provider Instructions for Treatment How to Access Health Informa tion Online using Patient Portal and [employer]rd [employer] Apps Indication:BMI 27.0-27.9,adult Start:26-Jan-2022 Instruction Type:Patient Education Patient Instructions Indication:BMI 27.0-27.9,adult Start:17-Mar-2021 Instruction Type:Provider Instructions for Treatment How to Access Health Informa tion Online using Patient Portal and [employer]rd [employer] Apps Indication:Nonsmoker Start:17-Mar-2021 Instruction Type:Patient Education Patient Instructions Indication:Nonsmoker Start:01-Jan-2021 Instruction Type:Provider Instructions for Treatment How to Access Health Informa tion Online using Patient Portal and [employer]rd [employer] Apps Indication:Nonsmoker Start:01-Jan-2021 Instruction Type:Patient Education How to access health informa tion online Indication:BMI 27.0-27.9,adult Start:07-Sep-2020 Instruction Type:Patient Education How to access health informa tion online - Detail Indication:BMI 27.0-27.9,adult Start:07-Sep-2020 Instruction Type:Patient Education Patient Instructions Indication:BMI 27.0-27.9,adult Start:07-Sep-2020 Instruction Type:Provider Instructions for Treatment How to access health informa tion online Indication:Nonsmoker Start:31-Aug-2020 Instruction Type:Patient Education How to access health informa tion online - Detail Indication:Nonsmoker Start:31-Aug-2020 Instruction Type:Patient Education Patient Instructions Indication:Nonsmoker Start:31-Aug-2020 Instruction Type:Provider Instructions for Treatment How to access health informa tion online Indication:Nonsmoker Start:31-Jul-2020 Instruction Type:Patient Education How to access health informa tion online - Detail Indication:Nonsmoker Start:31-Jul-2020 Instruction Type:Patient Education Patient Instructions Indication:Nonsmoker Start:31-Jul-2020 Instruction Type:Provider Instructions for Treatment How to access health informa tion online Indication:Nonsmoker Start:17-Jun-2020 Instruction Type:Patient Education How to access health informa tion online - Detail Indication:Nonsmoker Start:17-Jun-2020 Instruction Type:Patient Education Patient Instructions Indication:BMI 27.0-27.9,adult Start:17-Jun-2020 Instruction Type:Provider Instructions for Treatment How to access health informa tion online Indication:Nonsmoker Start:09-Jun-2020 Instruction Type:Patient Education How to access health informa tion online - Detail Indication:Nonsmoker Start:09-Jun-2020 Instruction Type:Patient Education Patient Instructions Indication:Nonsmoker Start:09-Jun-2020 Instruction Type:Provider Instructions for Treatment [facility]; [facility] Work Phone: Instructions* Name Dates Details Patient Instructions Indication:BMI 26.0-26.9,adult Start:28-Sep-2022 Instruction Type:Provider Instructions for Treatment How to Access Health Informa tion Online using Patient Portal and [employer]rd [employer] Apps Indication:BMI 26.0-26.9,adult Start:28-Sep-2022 Instruction Type:Patient Education Patient Instructions Indication:BMI 26.0-26.9,adult Start:19-Sep-2022 Instruction Type:Provider Instructions for Treatment How to Access Health Informa tion Online using Patient Portal and [employer]rd [employer] Apps Indication:BMI 26.0-26.9,adult Start:19-Sep-2022 Instruction Type:Patient Education Patient Instructions Indication:BMI 26.0-26.9,adult Start:13-Jul-2022 Instruction Type:Provider Instructions for Treatment How to Access Health Informa tion Online using Patient Portal and [employer]rd [employer] Apps Indication:BMI 26.0-26.9,adult Start:13-Jul-2022 Instruction Type:Patient Education Patient Instructions Indication:BMI 26.0-26.9,adult Start:15-Jun-2022 Instruction Type:Provider Instructions for Treatment How to Access Health Informa tion Online using Patient Portal and [employer]rd [employer] Apps Indication:BMI 26.0-26.9,adult Start:15-Jun-2022 Instruction Type:Patient Education How to Access Health Informa tion Online using Patient Portal and [employer]rd [employer] Apps Indication:Nonsmoker Start:31-May-2022 Instruction Type:Patient Education Patient Instructions Indication:Nonsmoker Start:31-May-2022 Instruction Type:Provider Instructions for Treatment Patient Instructions Indication:BMI 26.0-26.9,adult Start:27-May-2022 Instruction Type:Provider Instructions for Treatment How to Access Health Informa tion Online using Patient Portal and [employer]rd [employer] Apps Indication:BMI 26.0-26.9,adult Start:27-May-2022 Instruction Type:Patient Education Patient Instructions Indication:BMI 26.0-26.9,adult Start:11-May-2022 Instruction Type:Provider Instructions for Treatment How to Access Health Informa tion Online using Patient Portal and [employer]rd [employer] Apps Indication:BMI 26.0-26.9,adult Start:11-May-2022 Instruction Type:Patient Education Patient Instructions Indication:BMI 27.0-27.9,adult Start:26-Jan-2022 Instruction Type:Provider Instructions for Treatment How to Access Health Informa tion Online using Patient Portal and [employer]rd [employer] Apps Indication:BMI 27.0-27.9,adult Start:26-Jan-2022 Instruction Type:Patient Education Patient Instructions Indication:BMI 27.0-27.9,adult Start:17-Mar-2021 Instruction Type:Provider Instructions for Treatment How to Access Health Informa tion Online using Patient Portal and [employer]rd [employer] Apps Indication:Nonsmoker Start:17-Mar-2021 Instruction Type:Patient Education Patient Instructions Indication:Nonsmoker Start:01-Jan-2021 Instruction Type:Provider Instructions for Treatment How to Access Health Informa tion Online using Patient Portal and [employer]rd [employer] Apps Indication:Nonsmoker Start:01-Jan-2021 Instruction Type:Patient Education How to access health informa tion online Indication:BMI 27.0-27.9,adult Start:07-Sep-2020 Instruction Type:Patient Education How to access health informa tion online - Detail Indication:BMI 27.0-27.9,adult Start:07-Sep-2020 Instruction Type:Patient Education Patient Instructions Indication:BMI 27.0-27.9,adult Start:07-Sep-2020 Instruction Type:Provider Instructions for Treatment How to access health informa tion online Indication:Nonsmoker Start:31-Aug-2020 Instruction Type:Patient Education How to access health informa tion online - Detail Indication:Nonsmoker Start:31-Aug-2020 Instruction Type:Patient Education Patient Instructions Indication:Nonsmoker Start:31-Aug-2020 Instruction Type:Provider Instructions for Treatment How to access health informa tion online Indication:Nonsmoker Start:31-Jul-2020 Instruction Type:Patient Education How to access health informa tion online - Detail Indication:Nonsmoker Start:31-Jul-2020 Instruction Type:Patient Education Patient Instructions Indication:Nonsmoker Start:31-Jul-2020 Instruction Type:Provider Instructions for Treatment How to access health informa tion online Indication:Nonsmoker Start:17-Jun-2020 Instruction Type:Patient Education How to access health informa tion online - Detail Indication:Nonsmoker Start:17-Jun-2020 Instruction Type:Patient Education Patient Instructions Indication:BMI 27.0-27.9,adult Start:17-Jun-2020 Instruction Type:Provider Instructions for Treatment How to access health informa tion online Indication:Nonsmoker Start:09-Jun-2020 Instruction Type:Patient Education How to access health informa tion online - Detail Indication:Nonsmoker Start:09-Jun-2020 Instruction Type:Patient Education Patient Instructions Indication:Nonsmoker Start:09-Jun-2020 Instruction Type:Provider Instructions for Treatment [facility]; [facility] Work Phone: Instructions* Name Dates Details Patient Instructions Indication:BMI 26.0-26.9,adult Start:28-Sep-2022 Instruction Type:Provider Instructions for Treatment How to Access Health Informa tion Online using Patient Portal and [employer]rd [employer] Apps Indication:BMI 26.0-26.9,adult Start:28-Sep-2022 Instruction Type:Patient Education Patient Instructions Indication:BMI 26.0-26.9,adult Start:19-Sep-2022 Instruction Type:Provider Instructions for Treatment How to Access Health Informa tion Online using Patient Portal and [employer]rd [employer] Apps Indication:BMI 26.0-26.9,adult Start:19-Sep-2022 Instruction Type:Patient Education Patient Instructions Indication:BMI 26.0-26.9,adult Start:13-Jul-2022 Instruction Type:Provider Instructions for Treatment How to Access Health Informa tion Online using Patient Portal and [employer]rd [employer] Apps Indication:BMI 26.0-26.9,adult Start:13-Jul-2022 Instruction Type:Patient Education Patient Instructions Indication:BMI 26.0-26.9,adult Start:15-Jun-2022 Instruction Type:Provider Instructions for Treatment How to Access Health Informa tion Online using Patient Portal and [employer]rd [employer] Apps Indication:BMI 26.0-26.9,adult Start:15-Jun-2022 Instruction Type:Patient Education How to Access Health Informa tion Online using Patient Portal and [employer]rd [employer] Apps Indication:Nonsmoker Start:31-May-2022 Instruction Type:Patient Education Patient Instructions Indication:Nonsmoker Start:31-May-2022 Instruction Type:Provider Instructions for Treatment Patient Instructions Indication:BMI 26.0-26.9,adult Start:27-May-2022 Instruction Type:Provider Instructions for Treatment How to Access Health Informa tion Online using Patient Portal and [employer]rd [employer] Apps Indication:BMI 26.0-26.9,adult Start:27-May-2022 Instruction Type:Patient Education Patient Instructions Indication:BMI 26.0-26.9,adult Start:11-May-2022 Instruction Type:Provider Instructions for Treatment How to Access Health Informa tion Online using Patient Portal and [employer]rd [employer] Apps Indication:BMI 26.0-26.9,adult Start:11-May-2022 Instruction Type:Patient Education Patient Instructions Indication:BMI 27.0-27.9,adult Start:26-Jan-2022 Instruction Type:Provider Instructions for Treatment How to Access Health Informa tion Online using Patient Portal and [employer]rd [employer] Apps Indication:BMI 27.0-27.9,adult Start:26-Jan-2022 Instruction Type:Patient Education Patient Instructions Indication:BMI 27.0-27.9,adult Start:17-Mar-2021 Instruction Type:Provider Instructions for Treatment How to Access Health Informa tion Online using Patient Portal and 3rd [employer] Apps Indication:Nonsmoker Start:17-Mar-2021 Instruction Type:Patient Education Patient Instructions Indication:Nonsmoker Start:01-Jan-2021 Instruction Type:Provider Instructions for Treatment How to Access Health Informa tion Online using Patient Portal and 3rd [employer] Apps Indication:Nonsmoker Start:01-Jan-2021 Instruction Type:Patient Education How to access health informa tion online Indication:BMI 27.0-27.9,adult Start:07-Sep-2020 Instruction Type:Patient Education How to access health informa tion online - Detail Indication:BMI 27.0-27.9,adult Start:07-Sep-2020 Instruction Type:Patient Education Patient Instructions Indication:BMI 27.0-27.9,adult Start:07-Sep-2020 Instruction Type:Provider Instructions for Treatment How to access health informa tion online Indication:Nonsmoker Start:31-Aug-2020 Instruction Type:Patient Education How to access health informa tion online - Detail Indication:Nonsmoker Start:31-Aug-2020 Instruction Type:Patient Education Patient Instructions Indication:Nonsmoker Start:31-Aug-2020 Instruction Type:Provider Instructions for Treatment How to access health informa tion online Indication:Nonsmoker Start:31-Jul-2020 Instruction Type:Patient Education How to access health informa tion online - Detail Indication:Nonsmoker Start:31-Jul-2020 Instruction Type:Patient Education Patient Instructions Indication:Nonsmoker Start:31-Jul-2020 Instruction Type:Provider Instructions for Treatment How to access health informa tion online Indication:Nonsmoker Start:17-Jun-2020 Instruction Type:Patient Education How to access health informa tion online - Detail Indication:Nonsmoker Start:17-Jun-2020 Instruction Type:Patient Education Patient Instructions Indication:BMI 27.0-27.9,adult Start:17-Jun-2020 Instruction Type:Provider Instructions for Treatment How to access health informa tion online Indication:Nonsmoker Start:09-Jun-2020 Instruction Type:Patient Education How to access health informa tion online - Detail Indication:Nonsmoker Start:09-Jun-2020 Instruction Type:Patient Education Patient Instructions Indication:Nonsmoker Start:09-Jun-2020 Instruction Type:Provider Instructions for Treatment [facility]; [facility] Work Phone: Instructions* Name Dates Details How to Access Health Informa tion Online using Patient Portal and [employer]rd [employer] Apps Indication:Nonsmoker Start:21-Oct-2022 Instruction Type:Patient Education Patient Instructions Indication:Nonsmoker Start:21-Oct-2022 Instruction Type:Provider Instructions for Treatment Patient Instructions Indication:BMI 26.0-26.9,adult Start:28-Sep-2022 Instruction Type:Provider Instructions for Treatment How to Access Health Informa tion Online using Patient Portal and [employer]rd [employer] Apps Indication:BMI 26.0-26.9,adult Start:28-Sep-2022 Instruction Type:Patient Education Patient Instructions Indication:BMI 26.0-26.9,adult Start:19-Sep-2022 Instruction Type:Provider Instructions for Treatment How to Access Health Informa tion Online using Patient Portal and [employer]rd [employer] Apps Indication:BMI 26.0-26.9,adult Start:19-Sep-2022 Instruction Type:Patient Education Patient Instructions Indication:BMI 26.0-26.9,adult Start:13-Jul-2022 Instruction Type:Provider Instructions for Treatment How to Access Health Informa tion Online using Patient Portal and 3rd [employer] Apps Indication:BMI 26.0-26.9,adult Start:13-Jul-2022 Instruction Type:Patient Education Patient Instructions Indication:BMI 26.0-26.9,adult Start:15-Jun-2022 Instruction Type:Provider Instructions for Treatment How to Access Health Informa tion Online using Patient Portal and [employer]rd [employer] Apps Indication:BMI 26.0-26.9,adult Start:15-Jun-2022 Instruction Type:Patient Education How to Access Health Informa tion Online using Patient Portal and [employer]rd [employer] Apps Indication:Nonsmoker Start:31-May-2022 Instruction Type:Patient Education Patient Instructions Indication:Nonsmoker Start:31-May-2022 Instruction Type:Provider Instructions for Treatment Patient Instructions Indication:BMI 26.0-26.9,adult Start:27-May-2022 Instruction Type:Provider Instructions for Treatment How to Access Health Informa tion Online using Patient Portal and [employer]rd [employer] Apps Indication:BMI 26.0-26.9,adult Start:27-May-2022 Instruction Type:Patient Education Patient Instructions Indication:BMI 26.0-26.9,adult Start:11-May-2022 Instruction Type:Provider Instructions for Treatment How to Access Health Informa tion Online using Patient Portal and [employer]rd [employer] Apps Indication:BMI 26.0-26.9,adult Start:11-May-2022 Instruction Type:Patient Education Patient Instructions Indication:BMI 27.0-27.9,adult Start:26-Jan-2022 Instruction Type:Provider Instructions for Treatment How to Access Health Informa tion Online using Patient Portal and [employer]rd [employer] Apps Indication:BMI 27.0-27.9,adult Start:26-Jan-2022 Instruction Type:Patient Education Patient Instructions Indication:BMI 27.0-27.9,adult Start:17-Mar-2021 Instruction Type:Provider Instructions for Treatment How to Access Health Informa tion Online using Patient Portal and [employer]rd [employer] Apps Indication:Nonsmoker Start:17-Mar-2021 Instruction Type:Patient Education Patient Instructions Indication:Nonsmoker Start:01-Jan-2021 Instruction Type:Provider Instructions for Treatment How to Access Health Informa tion Online using Patient Portal and [employer]rd [employer] Apps Indication:Nonsmoker Start:01-Jan-2021 Instruction Type:Patient Education How to access health informa tion online Indication:BMI 27.0-27.9,adult Start:07-Sep-2020 Instruction Type:Patient Education How to access health informa tion online - Detail Indication:BMI 27.0-27.9,adult Start:07-Sep-2020 Instruction Type:Patient Education Patient Instructions Indication:BMI 27.0-27.9,adult Start:07-Sep-2020 Instruction Type:Provider Instructions for Treatment How to access health informa tion online Indication:Nonsmoker Start:31-Aug-2020 Instruction Type:Patient Education How to access health informa tion online - Detail Indication:Nonsmoker Start:31-Aug-2020 Instruction Type:Patient Education Patient Instructions Indication:Nonsmoker Start:31-Aug-2020 Instruction Type:Provider Instructions for Treatment How to access health informa tion online Indication:Nonsmoker Start:31-Jul-2020 Instruction Type:Patient Education How to access health informa tion online - Detail Indication:Nonsmoker Start:31-Jul-2020 Instruction Type:Patient Education Patient Instructions Indication:Nonsmoker Start:31-Jul-2020 Instruction Type:Provider Instructions for Treatment How to access health informa tion online Indication:Nonsmoker Start:17-Jun-2020 Instruction Type:Patient Education How to access health informa tion online - Detail Indication:Nonsmoker Start:17-Jun-2020 Instruction Type:Patient Education Patient Instructions Indication:BMI 27.0-27.9,adult Start:17-Jun-2020 Instruction Type:Provider Instructions for Treatment How to access health informa tion online Indication:Nonsmoker Start:09-Jun-2020 Instruction Type:Patient Education How to access health informa tion online - Detail Indication:Nonsmoker Start:09-Jun-2020 Instruction Type:Patient Education Patient Instructions Indication:Nonsmoker Start:09-Jun-2020 Instruction Type:Provider Instructions for Treatment [facility]; [facility] Medicine Work Phone: Instructions* Name Dates Details How to Access Health Informa tion Online using Patient Portal and [employer] Apps Indication:Nonsmoker Start:21-Oct-2022 Instruction Type:Patient Education Patient Instructions Indication:Nonsmoker Start:21-Oct-2022 Instruction Type:Provider Instructions for Treatment Patient Instructions Indication:BMI 26.0-26.9,adult Start:28-Sep-2022 Instruction Type:Provider Instructions for Treatment How to Access Health Informa tion Online using Patient Portal and [employer] Apps Indication:BMI 26.0-26.9,adult Start:28-Sep-2022 Instruction Type:Patient Education Patient Instructions Indication:BMI 26.0-26.9,adult Start:19-Sep-2022 Instruction Type:Provider Instructions for Treatment How to Access Health Informa tion Online using Patient Portal and [employer] Apps Indication:BMI 26.0-26.9,adult Start:19-Sep-2022 Instruction Type:Patient Education Patient Instructions Indication:BMI 26.0-26.9,adult Start:13-Jul-2022 Instruction Type:Provider Instructions for Treatment How to Access Health Informa tion Online using Patient Portal and [employer] Apps Indication:BMI 26.0-26.9,adult Start:13-Jul-2022 Instruction Type:Patient Education Patient Instructions Indication:BMI 26.0-26.9,adult Start:15-Jun-2022 Instruction Type:Provider Instructions for Treatment How to Access Health Informa tion Online using Patient Portal and [employer] Apps Indication:BMI 26.0-26.9,adult Start:15-Jun-2022 Instruction Type:Patient Education How to Access Health Informa tion Online using Patient Portal and [employer] Apps Indication:Nonsmoker Start:31-May-2022 Instruction Type:Patient Education Patient Instructions Indication:Nonsmoker Start:31-May-2022 Instruction Type:Provider Instructions for Treatment Patient Instructions Indication:BMI 26.0-26.9,adult Start:27-May-2022 Instruction Type:Provider Instructions for Treatment How to Access Health Informa tion Online using Patient Portal and [employer] Apps Indication:BMI 26.0-26.9,adult Start:27-May-2022 Instruction Type:Patient Education Patient Instructions Indication:BMI 26.0-26.9,adult Start:11-May-2022 Instruction Type:Provider Instructions for Treatment How to Access Health Informa tion Online using Patient Portal and [employer] Apps Indication:BMI 26.0-26.9,adult Start:11-May-2022 Instruction Type:Patient Education Patient Instructions Indication:BMI 27.0-27.9,adult Start:26-Jan-2022 Instruction Type:Provider Instructions for Treatment How to Access Health Informa tion Online using Patient Portal and [employer] Apps Indication:BMI 27.0-27.9,adult Start:26-Jan-2022 Instruction Type:Patient Education Patient Instructions Indication:BMI 27.0-27.9,adult Start:17-Mar-2021 Instruction Type:Provider Instructions for Treatment How to Access Health Informa tion Online using Patient Portal and [employer] Apps Indication:Nonsmoker Start:17-Mar-2021 Instruction Type:Patient Education Patient Instructions Indication:Nonsmoker Start:01-Jan-2021 Instruction Type:Provider Instructions for Treatment How to Access Health Informa tion Online using Patient Portal and [employer] Apps Indication:Nonsmoker Start:01-Jan-2021 Instruction Type:Patient Education How to access health informa tion online Indication:BMI 27.0-27.9,adult Start:07-Sep-2020 Instruction Type:Patient Education How to access health informa tion online - Detail Indication:BMI 27.0-27.9,adult Start:07-Sep-2020 Instruction Type:Patient Education Patient Instructions Indication:BMI 27.0-27.9,adult Start:07-Sep-2020 Instruction Type:Provider Instructions for Treatment How to access health informa tion online Indication:Nonsmoker Start:31-Aug-2020 Instruction Type:Patient Education How to access health informa tion online - Detail Indication:Nonsmoker Start:31-Aug-2020 Instruction Type:Patient Education Patient Instructions Indication:Nonsmoker Start:31-Aug-2020 Instruction Type:Provider Instructions for Treatment How to access health informa tion online Indication:Nonsmoker Start:31-Jul-2020 Instruction Type:Patient Education How to access health informa tion online - Detail Indication:Nonsmoker Start:31-Jul-2020 Instruction Type:Patient Education Patient Instructions Indication:Nonsmoker Start:31-Jul-2020 Instruction Type:Provider Instructions for Treatment How to access health informa tion online Indication:Nonsmoker Start:17-Jun-2020 Instruction Type:Patient Education How to access health informa tion online - Detail Indication:Nonsmoker Start:17-Jun-2020 Instruction Type:Patient Education Patient Instructions Indication:BMI 27.0-27.9,adult Start:17-Jun-2020 Instruction Type:Provider Instructions for Treatment How to access health informa tion online Indication:Nonsmoker Start:09-Jun-2020 Instruction Type:Patient Education How to access health informa tion online - Detail Indication:Nonsmoker Start:09-Jun-2020 Instruction Type:Patient Education Patient Instructions Indication:Nonsmoker Start:09-Jun-2020 Instruction Type:Provider Instructions for Treatment [facility] Work Phone: Instructions* Name Dates Details How to Access Health Informa tion Online using Patient Portal and [employer] Apps Indication:Nonsmoker Start:21-Oct-2022 Instruction Type:Patient Education Patient Instructions Indication:Nonsmoker Start:21-Oct-2022 Instruction Type:Provider Instructions for Treatment Patient Instructions Indication:BMI 26.0-26.9,adult Start:28-Sep-2022 Instruction Type:Provider Instructions for Treatment How to Access Health Informa tion Online using Patient Portal and [employer] Apps Indication:BMI 26.0-26.9,adult Start:28-Sep-2022 Instruction Type:Patient Education Patient Instructions Indication:BMI 26.0-26.9,adult Start:19-Sep-2022 Instruction Type:Provider Instructions for Treatment How to Access Health Informa tion Online using Patient Portal and [employer] Apps Indication:BMI 26.0-26.9,adult Start:19-Sep-2022 Instruction Type:Patient Education Patient Instructions Indication:BMI 26.0-26.9,adult Start:13-Jul-2022 Instruction Type:Provider Instructions for Treatment How to Access Health Informa tion Online using Patient Portal and [employer] Apps Indication:BMI 26.0-26.9,adult Start:13-Jul-2022 Instruction Type:Patient Education Patient Instructions Indication:BMI 26.0-26.9,adult Start:15-Jun-2022 Instruction Type:Provider Instructions for Treatment How to Access Health Informa tion Online using Patient Portal and [employer] Apps Indication:BMI 26.0-26.9,adult Start:15-Jun-2022 Instruction Type:Patient Education How to Access Health Informa tion Online using Patient Portal and [employer] Apps Indication:Nonsmoker Start:31-May-2022 Instruction Type:Patient Education Patient Instructions Indication:Nonsmoker Start:31-May-2022 Instruction Type:Provider Instructions for Treatment Patient Instructions Indication:BMI 26.0-26.9,adult Start:27-May-2022 Instruction Type:Provider Instructions for Treatment How to Access Health Informa tion Online using Patient Portal and [employer] Apps Indication:BMI 26.0-26.9,adult Start:27-May-2022 Instruction Type:Patient Education Patient Instructions Indication:BMI 26.0-26.9,adult Start:11-May-2022 Instruction Type:Provider Instructions for Treatment How to Access Health Informa tion Online using Patient Portal and [employer] Apps Indication:BMI 26.0-26.9,adult Start:11-May-2022 Instruction Type:Patient Education Patient Instructions Indication:BMI 27.0-27.9,adult Start:26-Jan-2022 Instruction Type:Provider Instructions for Treatment How to Access Health Informa tion Online using Patient Portal and [employer] Apps Indication:BMI 27.0-27.9,adult Start:26-Jan-2022 Instruction Type:Patient Education Patient Instructions Indication:BMI 27.0-27.9,adult Start:17-Mar-2021 Instruction Type:Provider Instructions for Treatment How to Access Health Informa tion Online using Patient Portal and [employer] Apps Indication:Nonsmoker Start:17-Mar-2021 Instruction Type:Patient Education Patient Instructions Indication:Nonsmoker Start:01-Jan-2021 Instruction Type:Provider Instructions for Treatment How to Access Health Informa tion Online using Patient Portal and [employer] Apps Indication:Nonsmoker Start:01-Jan-2021 Instruction Type:Patient Education How to access health informa tion online Indication:BMI 27.0-27.9,adult Start:07-Sep-2020 Instruction Type:Patient Education How to access health informa tion online - Detail Indication:BMI 27.0-27.9,adult Start:07-Sep-2020 Instruction Type:Patient Education Patient Instructions Indication:BMI 27.0-27.9,adult Start:07-Sep-2020 Instruction Type:Provider Instructions for Treatment How to access health informa tion online Indication:Nonsmoker Start:31-Aug-2020 Instruction Type:Patient Education How to access health informa tion online - Detail Indication:Nonsmoker Start:31-Aug-2020 Instruction Type:Patient Education Patient Instructions Indication:Nonsmoker Start:31-Aug-2020 Instruction Type:Provider Instructions for Treatment How to access health informa tion online Indication:Nonsmoker Start:31-Jul-2020 Instruction Type:Patient Education How to access health informa tion online - Detail Indication:Nonsmoker Start:31-Jul-2020 Instruction Type:Patient Education Patient Instructions Indication:Nonsmoker Start:31-Jul-2020 Instruction Type:Provider Instructions for Treatment How to access health informa tion online Indication:Nonsmoker Start:17-Jun-2020 Instruction Type:Patient Education How to access health informa tion online - Detail Indication:Nonsmoker Start:17-Jun-2020 Instruction Type:Patient Education Patient Instructions Indication:BMI 27.0-27.9,adult Start:17-Jun-2020 Instruction Type:Provider Instructions for Treatment How to access health informa tion online Indication:Nonsmoker Start:09-Jun-2020 Instruction Type:Patient Education How to access health informa tion online - Detail Indication:Nonsmoker Start:09-Jun-2020 Instruction Type:Patient Education Patient Instructions Indication:Nonsmoker Start:09-Jun-2020 Instruction Type:Provider Instructions for Treatment [facility] Work Phone: Instructions* Name Dates Details How to Access Health Informa tion Online using Patient Portal and [employer] Apps Indication:Nonsmoker Start:21-Oct-2022 Instruction Type:Patient Education Patient Instructions Indication:Nonsmoker Start:21-Oct-2022 Instruction Type:Provider Instructions for Treatment Patient Instructions Indication:BMI 26.0-26.9,adult Start:28-Sep-2022 Instruction Type:Provider Instructions for Treatment How to Access Health Informa tion Online using Patient Portal and [employer] Apps Indication:BMI 26.0-26.9,adult Start:28-Sep-2022 Instruction Type:Patient Education Patient Instructions Indication:BMI 26.0-26.9,adult Start:19-Sep-2022 Instruction Type:Provider Instructions for Treatment How to Access Health Informa tion Online using Patient Portal and [employer] Apps Indication:BMI 26.0-26.9,adult Start:19-Sep-2022 Instruction Type:Patient Education Patient Instructions Indication:BMI 26.0-26.9,adult Start:13-Jul-2022 Instruction Type:Provider Instructions for Treatment How to Access Health Informa tion Online using Patient Portal and [employer] Apps Indication:BMI 26.0-26.9,adult Start:13-Jul-2022 Instruction Type:Patient Education Patient Instructions Indication:BMI 26.0-26.9,adult Start:15-Jun-2022 Instruction Type:Provider Instructions for Treatment How to Access Health Informa tion Online using Patient Portal and [employer] Apps Indication:BMI 26.0-26.9,adult Start:15-Jun-2022 Instruction Type:Patient Education How to Access Health Informa tion Online using Patient Portal and [employer] Apps Indication:Nonsmoker Start:31-May-2022 Instruction Type:Patient Education Patient Instructions Indication:Nonsmoker Start:31-May-2022 Instruction Type:Provider Instructions for Treatment Patient Instructions Indication:BMI 26.0-26.9,adult Start:27-May-2022 Instruction Type:Provider Instructions for Treatment How to Access Health Informa tion Online using Patient Portal and [employer] Apps Indication:BMI 26.0-26.9,adult Start:27-May-2022 Instruction Type:Patient Education Patient Instructions Indication:BMI 26.0-26.9,adult Start:11-May-2022 Instruction Type:Provider Instructions for Treatment How to Access Health Informa tion Online using Patient Portal and [employer] Apps Indication:BMI 26.0-26.9,adult Start:11-May-2022 Instruction Type:Patient Education Patient Instructions Indication:BMI 27.0-27.9,adult Start:26-Jan-2022 Instruction Type:Provider Instructions for Treatment How to Access Health Informa tion Online using Patient Portal and [employer] Apps Indication:BMI 27.0-27.9,adult Start:26-Jan-2022 Instruction Type:Patient Education Patient Instructions Indication:BMI 27.0-27.9,adult Start:17-Mar-2021 Instruction Type:Provider Instructions for Treatment How to Access Health Informa tion Online using Patient Portal and [employer] Apps Indication:Nonsmoker Start:17-Mar-2021 Instruction Type:Patient Education Patient Instructions Indication:Nonsmoker Start:01-Jan-2021 Instruction Type:Provider Instructions for Treatment How to Access Health Informa tion Online using Patient Portal and [employer] Apps Indication:Nonsmoker Start:01-Jan-2021 Instruction Type:Patient Education How to access health informa tion online Indication:BMI 27.0-27.9,adult Start:07-Sep-2020 Instruction Type:Patient Education How to access health informa tion online - Detail Indication:BMI 27.0-27.9,adult Start:07-Sep-2020 Instruction Type:Patient Education Patient Instructions Indication:BMI 27.0-27.9,adult Start:07-Sep-2020 Instruction Type:Provider Instructions for Treatment How to access health informa tion online Indication:Nonsmoker Start:31-Aug-2020 Instruction Type:Patient Education How to access health informa tion online - Detail Indication:Nonsmoker Start:31-Aug-2020 Instruction Type:Patient Education Patient Instructions Indication:Nonsmoker Start:31-Aug-2020 Instruction Type:Provider Instructions for Treatment How to access health informa tion online Indication:Nonsmoker Start:31-Jul-2020 Instruction Type:Patient Education How to access health informa tion online - Detail Indication:Nonsmoker Start:31-Jul-2020 Instruction Type:Patient Education Patient Instructions Indication:Nonsmoker Start:31-Jul-2020 Instruction Type:Provider Instructions for Treatment How to access health informa tion online Indication:Nonsmoker Start:17-Jun-2020 Instruction Type:Patient Education How to access health informa tion online - Detail Indication:Nonsmoker Start:17-Jun-2020 Instruction Type:Patient Education Patient Instructions Indication:BMI 27.0-27.9,adult Start:17-Jun-2020 Instruction Type:Provider Instructions for Treatment How to access health informa tion online Indication:Nonsmoker Start:09-Jun-2020 Instruction Type:Patient Education How to access health informa tion online - Detail Indication:Nonsmoker Start:09-Jun-2020 Instruction Type:Patient Education Patient Instructions Indication:Nonsmoker Start:09-Jun-2020 Instruction Type:Provider Instructions for Treatment [facility]; [facility] Work Phone: Instructions* Name Dates Details Patient Instructions Indication:Chest pain Start:08-Feb-2023 Instruction Type:Provider Instructions for Treatment How to Access Health Informa tion Online using Patient Portal and [employer] Apps Indication:Chest pain Start:08-Feb-2023 Instruction Type:Patient Education How to Access Health Informa tion Online using Patient Portal and [employer] Apps Indication:Nonsmoker Start:21-Oct-2022 Instruction Type:Patient Education Patient Instructions Indication:Nonsmoker Start:21-Oct-2022 Instruction Type:Provider Instructions for Treatment Patient Instructions Indication:BMI 26.0-26.9,adult Start:28-Sep-2022 Instruction Type:Provider Instructions for Treatment How to Access Health Informa tion Online using Patient Portal and [employer] Apps Indication:BMI 26.0-26.9,adult Start:28-Sep-2022 Instruction Type:Patient Education Patient Instructions Indication:BMI 26.0-26.9,adult Start:19-Sep-2022 Instruction Type:Provider Instructions for Treatment How to Access Health Informa tion Online using Patient Portal and [employer] Apps Indication:BMI 26.0-26.9,adult Start:19-Sep-2022 Instruction Type:Patient Education Patient Instructions Indication:BMI 26.0-26.9,adult Start:13-Jul-2022 Instruction Type:Provider Instructions for Treatment How to Access Health Informa tion Online using Patient Portal and [employer] Apps Indication:BMI 26.0-26.9,adult Start:13-Jul-2022 Instruction Type:Patient Education Patient Instructions Indication:BMI 26.0-26.9,adult Start:15-Jun-2022 Instruction Type:Provider Instructions for Treatment How to Access Health Informa tion Online using Patient Portal and [employer] Apps Indication:BMI 26.0-26.9,adult Start:15-Jun-2022 Instruction Type:Patient Education How to Access Health Informa tion Online using Patient Portal and [employer] Apps Indication:Nonsmoker Start:31-May-2022 Instruction Type:Patient Education Patient Instructions Indication:Nonsmoker Start:31-May-2022 Instruction Type:Provider Instructions for Treatment Patient Instructions Indication:BMI 26.0-26.9,adult Start:27-May-2022 Instruction Type:Provider Instructions for Treatment How to Access Health Informa tion Online using Patient Portal and [employer] Apps Indication:BMI 26.0-26.9,adult Start:27-May-2022 Instruction Type:Patient Education Patient Instructions Indication:BMI 26.0-26.9,adult Start:11-May-2022 Instruction Type:Provider Instructions for Treatment How to Access Health Informa tion Online using Patient Portal and [employer] Apps Indication:BMI 26.0-26.9,adult Start:11-May-2022 Instruction Type:Patient Education Patient Instructions Indication:BMI 27.0-27.9,adult Start:26-Jan-2022 Instruction Type:Provider Instructions for Treatment How to Access Health Informa tion Online using Patient Portal and [employer] Apps Indication:BMI 27.0-27.9,adult Start:26-Jan-2022 Instruction Type:Patient Education Patient Instructions Indication:BMI 27.0-27.9,adult Start:17-Mar-2021 Instruction Type:Provider Instructions for Treatment How to Access Health Informa tion Online using Patient Portal and [employer] Apps Indication:Nonsmoker Start:17-Mar-2021 Instruction Type:Patient Education Patient Instructions Indication:Nonsmoker Start:01-Jan-2021 Instruction Type:Provider Instructions for Treatment How to Access Health Informa tion Online using Patient Portal and [employer] Apps Indication:Nonsmoker Start:01-Jan-2021 Instruction Type:Patient Education How to access health informa tion online Indication:BMI 27.0-27.9,adult Start:07-Sep-2020 Instruction Type:Patient Education How to access health informa tion online - Detail Indication:BMI 27.0-27.9,adult Start:07-Sep-2020 Instruction Type:Patient Education Patient Instructions Indication:BMI 27.0-27.9,adult Start:07-Sep-2020 Instruction Type:Provider Instructions for Treatment How to access health informa tion online Indication:Nonsmoker Start:31-Aug-2020 Instruction Type:Patient Education How to access health informa tion online - Detail Indication:Nonsmoker Start:31-Aug-2020 Instruction Type:Patient Education Patient Instructions Indication:Nonsmoker Start:31-Aug-2020 Instruction Type:Provider Instructions for Treatment How to access health informa tion online Indication:Nonsmoker Start:31-Jul-2020 Instruction Type:Patient Education How to access health informa tion online - Detail Indication:Nonsmoker Start:31-Jul-2020 Instruction Type:Patient Education Patient Instructions Indication:Nonsmoker Start:31-Jul-2020 Instruction Type:Provider Instructions for Treatment How to access health informa tion online Indication:Nonsmoker Start:17-Jun-2020 Instruction Type:Patient Education How to access health informa tion online - Detail Indication:Nonsmoker Start:17-Jun-2020 Instruction Type:Patient Education Patient Instructions Indication:BMI 27.0-27.9,adult Start:17-Jun-2020 Instruction Type:Provider Instructions for Treatment How to access health informa tion online Indication:Nonsmoker Start:09-Jun-2020 Instruction Type:Patient Education How to access health informa tion online - Detail Indication:Nonsmoker Start:09-Jun-2020 Instruction Type:Patient Education Patient Instructions Indication:Nonsmoker Start:09-Jun-2020 Instruction Type:Provider Instructions for Treatment [facility]; [facility] Work Phone: Instructions* Name Dates Details Patient Instructions Indication:Chest pain Start:08-Feb-2023 Instruction Type:Provider Instructions for Treatment How to Access Health Informa tion Online using Patient Portal and [employer] Apps Indication:Chest pain Start:08-Feb-2023 Instruction Type:Patient Education How to Access Health Informa tion Online using Patient Portal and [employer] Apps Indication:Nonsmoker Start:21-Oct-2022 Instruction Type:Patient Education Patient Instructions Indication:Nonsmoker Start:21-Oct-2022 Instruction Type:Provider Instructions for Treatment Patient Instructions Indication:BMI 26.0-26.9,adult Start:28-Sep-2022 Instruction Type:Provider Instructions for Treatment How to Access Health Informa tion Online using Patient Portal and [employer] Apps Indication:BMI 26.0-26.9,adult Start:28-Sep-2022 Instruction Type:Patient Education Patient Instructions Indication:BMI 26.0-26.9,adult Start:19-Sep-2022 Instruction Type:Provider Instructions for Treatment How to Access Health Informa tion Online using Patient Portal and [employer] Apps Indication:BMI 26.0-26.9,adult Start:19-Sep-2022 Instruction Type:Patient Education Patient Instructions Indication:BMI 26.0-26.9,adult Start:13-Jul-2022 Instruction Type:Provider Instructions for Treatment How to Access Health Informa tion Online using Patient Portal and [employer] Apps Indication:BMI 26.0-26.9,adult Start:13-Jul-2022 Instruction Type:Patient Education Patient Instructions Indication:BMI 26.0-26.9,adult Start:15-Jun-2022 Instruction Type:Provider Instructions for Treatment How to Access Health Informa tion Online using Patient Portal and [employer] Apps Indication:BMI 26.0-26.9,adult Start:15-Jun-2022 Instruction Type:Patient Education How to Access Health Informa tion Online using Patient Portal and [employer] Apps Indication:Nonsmoker Start:31-May-2022 Instruction Type:Patient Education Patient Instructions Indication:Nonsmoker Start:31-May-2022 Instruction Type:Provider Instructions for Treatment Patient Instructions Indication:BMI 26.0-26.9,adult Start:27-May-2022 Instruction Type:Provider Instructions for Treatment How to Access Health Informa tion Online using Patient Portal and [employer] Apps Indication:BMI 26.0-26.9,adult Start:27-May-2022 Instruction Type:Patient Education Patient Instructions Indication:BMI 26.0-26.9,adult Start:11-May-2022 Instruction Type:Provider Instructions for Treatment How to Access Health Informa tion Online using Patient Portal and [employer] Apps Indication:BMI 26.0-26.9,adult Start:11-May-2022 Instruction Type:Patient Education Patient Instructions Indication:BMI 27.0-27.9,adult Start:26-Jan-2022 Instruction Type:Provider Instructions for Treatment How to Access Health Informa tion Online using Patient Portal and [employer] Apps Indication:BMI 27.0-27.9,adult Start:26-Jan-2022 Instruction Type:Patient Education Patient Instructions Indication:BMI 27.0-27.9,adult Start:17-Mar-2021 Instruction Type:Provider Instructions for Treatment How to Access Health Informa tion Online using Patient Portal and [employer] Apps Indication:Nonsmoker Start:17-Mar-2021 Instruction Type:Patient Education Patient Instructions Indication:Nonsmoker Start:01-Jan-2021 Instruction Type:Provider Instructions for Treatment How to Access Health Informa tion Online using Patient Portal and [employer] Apps Indication:Nonsmoker Start:01-Jan-2021 Instruction Type:Patient Education How to access health informa tion online Indication:BMI 27.0-27.9,adult Start:07-Sep-2020 Instruction Type:Patient Education How to access health informa tion online - Detail Indication:BMI 27.0-27.9,adult Start:07-Sep-2020 Instruction Type:Patient Education Patient Instructions Indication:BMI 27.0-27.9,adult Start:07-Sep-2020 Instruction Type:Provider Instructions for Treatment How to access health informa tion online Indication:Nonsmoker Start:31-Aug-2020 Instruction Type:Patient Education How to access health informa tion online - Detail Indication:Nonsmoker Start:31-Aug-2020 Instruction Type:Patient Education Patient Instructions Indication:Nonsmoker Start:31-Aug-2020 Instruction Type:Provider Instructions for Treatment How to access health informa tion online Indication:Nonsmoker Start:31-Jul-2020 Instruction Type:Patient Education How to access health informa tion online - Detail Indication:Nonsmoker Start:31-Jul-2020 Instruction Type:Patient Education Patient Instructions Indication:Nonsmoker Start:31-Jul-2020 Instruction Type:Provider Instructions for Treatment How to access health informa tion online Indication:Nonsmoker Start:17-Jun-2020 Instruction Type:Patient Education How to access health informa tion online - Detail Indication:Nonsmoker Start:17-Jun-2020 Instruction Type:Patient Education Patient Instructions Indication:BMI 27.0-27.9,adult Start:17-Jun-2020 Instruction Type:Provider Instructions for Treatment How to access health informa tion online Indication:Nonsmoker Start:09-Jun-2020 Instruction Type:Patient Education How to access health informa tion online - Detail Indication:Nonsmoker Start:09-Jun-2020 Instruction Type:Patient Education Patient Instructions Indication:Nonsmoker Start:09-Jun-2020 Instruction Type:Provider Instructions for Treatment [facility]; [facility] Work Phone: Instructions* Name Dates Details Patient Instructions Indication:Chest pain Start:08-Feb-2023 Instruction Type:Provider Instructions for Treatment How to Access Health Informa tion Online using Patient Portal and 3rd [employer] Apps Indication:Chest pain Start:08-Feb-2023 Instruction Type:Patient Education How to Access Health Informa tion Online using Patient Portal and [employer]rd [employer] Apps Indication:Nonsmoker Start:21-Oct-2022 Instruction Type:Patient Education Patient Instructions Indication:Nonsmoker Start:21-Oct-2022 Instruction Type:Provider Instructions for Treatment Patient Instructions Indication:BMI 26.0-26.9,adult Start:28-Sep-2022 Instruction Type:Provider Instructions for Treatment How to Access Health Informa tion Online using Patient Portal and [employer]rd [employer] Apps Indication:BMI 26.0-26.9,adult Start:28-Sep-2022 Instruction Type:Patient Education Patient Instructions Indication:BMI 26.0-26.9,adult Start:19-Sep-2022 Instruction Type:Provider Instructions for Treatment How to Access Health Informa tion Online using Patient Portal and 3rd [employer] Apps Indication:BMI 26.0-26.9,adult Start:19-Sep-2022 Instruction Type:Patient Education Patient Instructions Indication:BMI 26.0-26.9,adult Start:13-Jul-2022 Instruction Type:Provider Instructions for Treatment How to Access Health Informa tion Online using Patient Portal and 3rd [employer] Apps Indication:BMI 26.0-26.9,adult Start:13-Jul-2022 Instruction Type:Patient Education Patient Instructions Indication:BMI 26.0-26.9,adult Start:15-Jun-2022 Instruction Type:Provider Instructions for Treatment How to Access Health Informa tion Online using Patient Portal and [employer]rd [employer] Apps Indication:BMI 26.0-26.9,adult Start:15-Jun-2022 Instruction Type:Patient Education How to Access Health Informa tion Online using Patient Portal and [employer]rd [employer] Apps Indication:Nonsmoker Start:31-May-2022 Instruction Type:Patient Education Patient Instructions Indication:Nonsmoker Start:31-May-2022 Instruction Type:Provider Instructions for Treatment Patient Instructions Indication:BMI 26.0-26.9,adult Start:27-May-2022 Instruction Type:Provider Instructions for Treatment How to Access Health Informa tion Online using Patient Portal and 3rd [employer] Apps Indication:BMI 26.0-26.9,adult Start:27-May-2022 Instruction Type:Patient Education Patient Instructions Indication:BMI 26.0-26.9,adult Start:11-May-2022 Instruction Type:Provider Instructions for Treatment How to Access Health Informa tion Online using Patient Portal and [employer]rd [employer] Apps Indication:BMI 26.0-26.9,adult Start:11-May-2022 Instruction Type:Patient Education Patient Instructions Indication:BMI 27.0-27.9,adult Start:26-Jan-2022 Instruction Type:Provider Instructions for Treatment How to Access Health Informa tion Online using Patient Portal and [employer]rd [employer] Apps Indication:BMI 27.0-27.9,adult Start:26-Jan-2022 Instruction Type:Patient Education Patient Instructions Indication:BMI 27.0-27.9,adult Start:17-Mar-2021 Instruction Type:Provider Instructions for Treatment How to Access Health Informa tion Online using Patient Portal and [employer]rd [employer] Apps Indication:Nonsmoker Start:17-Mar-2021 Instruction Type:Patient Education Patient Instructions Indication:Nonsmoker Start:01-Jan-2021 Instruction Type:Provider Instructions for Treatment How to Access Health Informa tion Online using Patient Portal and [employer]rd [employer] Apps Indication:Nonsmoker Start:01-Jan-2021 Instruction Type:Patient Education How to access health informa tion online Indication:BMI 27.0-27.9,adult Start:07-Sep-2020 Instruction Type:Patient Education How to access health informa tion online - Detail Indication:BMI 27.0-27.9,adult Start:07-Sep-2020 Instruction Type:Patient Education Patient Instructions Indication:BMI 27.0-27.9,adult Start:07-Sep-2020 Instruction Type:Provider Instructions for Treatment How to access health informa tion online Indication:Nonsmoker Start:31-Aug-2020 Instruction Type:Patient Education How to access health informa tion online - Detail Indication:Nonsmoker Start:31-Aug-2020 Instruction Type:Patient Education Patient Instructions Indication:Nonsmoker Start:31-Aug-2020 Instruction Type:Provider Instructions for Treatment How to access health informa tion online Indication:Nonsmoker Start:31-Jul-2020 Instruction Type:Patient Education How to access health informa tion online - Detail Indication:Nonsmoker Start:31-Jul-2020 Instruction Type:Patient Education Patient Instructions Indication:Nonsmoker Start:31-Jul-2020 Instruction Type:Provider Instructions for Treatment How to access health informa tion online Indication:Nonsmoker Start:17-Jun-2020 Instruction Type:Patient Education How to access health informa tion online - Detail Indication:Nonsmoker Start:17-Jun-2020 Instruction Type:Patient Education Patient Instructions Indication:BMI 27.0-27.9,adult Start:17-Jun-2020 Instruction Type:Provider Instructions for Treatment How to access health informa tion online Indication:Nonsmoker Start:09-Jun-2020 Instruction Type:Patient Education How to access health informa tion online - Detail Indication:Nonsmoker Start:09-Jun-2020 Instruction Type:Patient Education Patient Instructions Indication:Nonsmoker Start:09-Jun-2020 Instruction Type:Provider Instructions for Treatment [facility]; [facility] Work Phone: Instructions* Name Dates Details Patient Instructions Indication:Nonsmoker Start:07-Mar-2023 Instruction Type:Provider Instructions for Treatment How to Access Health Informa tion Online using Patient Portal and [employer]rd [employer] Apps Indication:Nonsmoker Start:07-Mar-2023 Instruction Type:Patient Education Patient Instructions Indication:Chest pain Start:08-Feb-2023 Instruction Type:Provider Instructions for Treatment How to Access Health Informa tion Online using Patient Portal and [employer]rd [employer] Apps Indication:Chest pain Start:08-Feb-2023 Instruction Type:Patient Education How to Access Health Informa tion Online using Patient Portal and [employer]rd [employer] Apps Indication:Nonsmoker Start:21-Oct-2022 Instruction Type:Patient Education Patient Instructions Indication:Nonsmoker Start:21-Oct-2022 Instruction Type:Provider Instructions for Treatment Patient Instructions Indication:BMI 26.0-26.9,adult Start:28-Sep-2022 Instruction Type:Provider Instructions for Treatment How to Access Health Informa tion Online using Patient Portal and [employer]rd [employer] Apps Indication:BMI 26.0-26.9,adult Start:28-Sep-2022 Instruction Type:Patient Education Patient Instructions Indication:BMI 26.0-26.9,adult Start:19-Sep-2022 Instruction Type:Provider Instructions for Treatment How to Access Health Informa tion Online using Patient Portal and [employer]rd [employer] Apps Indication:BMI 26.0-26.9,adult Start:19-Sep-2022 Instruction Type:Patient Education Patient Instructions Indication:BMI 26.0-26.9,adult Start:13-Jul-2022 Instruction Type:Provider Instructions for Treatment How to Access Health Informa tion Online using Patient Portal and [employer]rd [employer] Apps Indication:BMI 26.0-26.9,adult Start:13-Jul-2022 Instruction Type:Patient Education Patient Instructions Indication:BMI 26.0-26.9,adult Start:15-Jun-2022 Instruction Type:Provider Instructions for Treatment How to Access Health Informa tion Online using Patient Portal and [employer]rd [employer] Apps Indication:BMI 26.0-26.9,adult Start:15-Jun-2022 Instruction Type:Patient Education How to Access Health Informa tion Online using Patient Portal and [employer]rd [employer] Apps Indication:Nonsmoker Start:31-May-2022 Instruction Type:Patient Education Patient Instructions Indication:Nonsmoker Start:31-May-2022 Instruction Type:Provider Instructions for Treatment Patient Instructions Indication:BMI 26.0-26.9,adult Start:27-May-2022 Instruction Type:Provider Instructions for Treatment How to Access Health Informa tion Online using Patient Portal and [employer]rd [employer] Apps Indication:BMI 26.0-26.9,adult Start:27-May-2022 Instruction Type:Patient Education Patient Instructions Indication:BMI 26.0-26.9,adult Start:11-May-2022 Instruction Type:Provider Instructions for Treatment How to Access Health Informa tion Online using Patient Portal and [employer]rd [employer] Apps Indication:BMI 26.0-26.9,adult Start:11-May-2022 Instruction Type:Patient Education Patient Instructions Indication:BMI 27.0-27.9,adult Start:26-Jan-2022 Instruction Type:Provider Instructions for Treatment How to Access Health Informa tion Online using Patient Portal and [employer]rd [employer] Apps Indication:BMI 27.0-27.9,adult Start:26-Jan-2022 Instruction Type:Patient Education Patient Instructions Indication:BMI 27.0-27.9,adult Start:17-Mar-2021 Instruction Type:Provider Instructions for Treatment How to Access Health Informa tion Online using Patient Portal and [employer]rd [employer] Apps Indication:Nonsmoker Start:17-Mar-2021 Instruction Type:Patient Education Patient Instructions Indication:Nonsmoker Start:01-Jan-2021 Instruction Type:Provider Instructions for Treatment How to Access Health Informa tion Online using Patient Portal and [employer]rd [employer] Apps Indication:Nonsmoker Start:01-Jan-2021 Instruction Type:Patient Education How to access health informa tion online Indication:BMI 27.0-27.9,adult Start:07-Sep-2020 Instruction Type:Patient Education How to access health informa tion online - Detail Indication:BMI 27.0-27.9,adult Start:07-Sep-2020 Instruction Type:Patient Education Patient Instructions Indication:BMI 27.0-27.9,adult Start:07-Sep-2020 Instruction Type:Provider Instructions for Treatment How to access health informa tion online Indication:Nonsmoker Start:31-Aug-2020 Instruction Type:Patient Education How to access health informa tion online - Detail Indication:Nonsmoker Start:31-Aug-2020 Instruction Type:Patient Education Patient Instructions Indication:Nonsmoker Start:31-Aug-2020 Instruction Type:Provider Instructions for Treatment How to access health informa tion online Indication:Nonsmoker Start:31-Jul-2020 Instruction Type:Patient Education How to access health informa tion online - Detail Indication:Nonsmoker Start:31-Jul-2020 Instruction Type:Patient Education Patient Instructions Indication:Nonsmoker Start:31-Jul-2020 Instruction Type:Provider Instructions for Treatment How to access health informa tion online Indication:Nonsmoker Start:17-Jun-2020 Instruction Type:Patient Education How to access health informa tion online - Detail Indication:Nonsmoker Start:17-Jun-2020 Instruction Type:Patient Education Patient Instructions Indication:BMI 27.0-27.9,adult Start:17-Jun-2020 Instruction Type:Provider Instructions for Treatment How to access health informa tion online Indication:Nonsmoker Start:09-Jun-2020 Instruction Type:Patient Education How to access health informa tion online - Detail Indication:Nonsmoker Start:09-Jun-2020 Instruction Type:Patient Education Patient Instructions Indication:Nonsmoker Start:09-Jun-2020 Instruction Type:Provider Instructions for Treatment [facility]; [facility] Work Phone: Instructions* Name Dates Details Patient Instructions Indication:Nonsmoker Start:07-Mar-2023 Instruction Type:Provider Instructions for Treatment How to Access Health Informa tion Online using Patient Portal and [employer]rd [employer] Apps Indication:Nonsmoker Start:07-Mar-2023 Instruction Type:Patient Education Patient Instructions Indication:Chest pain Start:08-Feb-2023 Instruction Type:Provider Instructions for Treatment How to Access Health Informa tion Online using Patient Portal and [employer]rd [employer] Apps Indication:Chest pain Start:08-Feb-2023 Instruction Type:Patient Education How to Access Health Informa tion Online using Patient Portal and [employer]rd [employer] Apps Indication:Nonsmoker Start:21-Oct-2022 Instruction Type:Patient Education Patient Instructions Indication:Nonsmoker Start:21-Oct-2022 Instruction Type:Provider Instructions for Treatment Patient Instructions Indication:BMI 26.0-26.9,adult Start:28-Sep-2022 Instruction Type:Provider Instructions for Treatment How to Access Health Informa tion Online using Patient Portal and [employer]rd [employer] Apps Indication:BMI 26.0-26.9,adult Start:28-Sep-2022 Instruction Type:Patient Education Patient Instructions Indication:BMI 26.0-26.9,adult Start:19-Sep-2022 Instruction Type:Provider Instructions for Treatment How to Access Health Informa tion Online using Patient Portal and [employer]rd [employer] Apps Indication:BMI 26.0-26.9,adult Start:19-Sep-2022 Instruction Type:Patient Education Patient Instructions Indication:BMI 26.0-26.9,adult Start:13-Jul-2022 Instruction Type:Provider Instructions for Treatment How to Access Health Informa tion Online using Patient Portal and 3rd [employer] Apps Indication:BMI 26.0-26.9,adult Start:13-Jul-2022 Instruction Type:Patient Education Patient Instructions Indication:BMI 26.0-26.9,adult Start:15-Jun-2022 Instruction Type:Provider Instructions for Treatment How to Access Health Informa tion Online using Patient Portal and [employer]rd [employer] Apps Indication:BMI 26.0-26.9,adult Start:15-Jun-2022 Instruction Type:Patient Education How to Access Health Informa tion Online using Patient Portal and [employer]rd [employer] Apps Indication:Nonsmoker Start:31-May-2022 Instruction Type:Patient Education Patient Instructions Indication:Nonsmoker Start:31-May-2022 Instruction Type:Provider Instructions for Treatment Patient Instructions Indication:BMI 26.0-26.9,adult Start:27-May-2022 Instruction Type:Provider Instructions for Treatment How to Access Health Informa tion Online using Patient Portal and [employer]rd [employer] Apps Indication:BMI 26.0-26.9,adult Start:27-May-2022 Instruction Type:Patient Education Patient Instructions Indication:BMI 26.0-26.9,adult Start:11-May-2022 Instruction Type:Provider Instructions for Treatment How to Access Health Informa tion Online using Patient Portal and [employer]rd [employer] Apps Indication:BMI 26.0-26.9,adult Start:11-May-2022 Instruction Type:Patient Education Patient Instructions Indication:BMI 27.0-27.9,adult Start:26-Jan-2022 Instruction Type:Provider Instructions for Treatment How to Access Health Informa tion Online using Patient Portal and [employer]rd [employer] Apps Indication:BMI 27.0-27.9,adult Start:26-Jan-2022 Instruction Type:Patient Education Patient Instructions Indication:BMI 27.0-27.9,adult Start:17-Mar-2021 Instruction Type:Provider Instructions for Treatment How to Access Health Informa tion Online using Patient Portal and 3rd [employer] Apps Indication:Nonsmoker Start:17-Mar-2021 Instruction Type:Patient Education Patient Instructions Indication:Nonsmoker Start:01-Jan-2021 Instruction Type:Provider Instructions for Treatment How to Access Health Informa tion Online using Patient Portal and 3rd [employer] Apps Indication:Nonsmoker Start:01-Jan-2021 Instruction Type:Patient Education How to access health informa tion online Indication:BMI 27.0-27.9,adult Start:07-Sep-2020 Instruction Type:Patient Education How to access health informa tion online - Detail Indication:BMI 27.0-27.9,adult Start:07-Sep-2020 Instruction Type:Patient Education Patient Instructions Indication:BMI 27.0-27.9,adult Start:07-Sep-2020 Instruction Type:Provider Instructions for Treatment How to access health informa tion online Indication:Nonsmoker Start:31-Aug-2020 Instruction Type:Patient Education How to access health informa tion online - Detail Indication:Nonsmoker Start:31-Aug-2020 Instruction Type:Patient Education Patient Instructions Indication:Nonsmoker Start:31-Aug-2020 Instruction Type:Provider Instructions for Treatment How to access health informa tion online Indication:Nonsmoker Start:31-Jul-2020 Instruction Type:Patient Education How to access health informa tion online - Detail Indication:Nonsmoker Start:31-Jul-2020 Instruction Type:Patient Education Patient Instructions Indication:Nonsmoker Start:31-Jul-2020 Instruction Type:Provider Instructions for Treatment How to access health informa tion online Indication:Nonsmoker Start:17-Jun-2020 Instruction Type:Patient Education How to access health informa tion online - Detail Indication:Nonsmoker Start:17-Jun-2020 Instruction Type:Patient Education Patient Instructions Indication:BMI 27.0-27.9,adult Start:17-Jun-2020 Instruction Type:Provider Instructions for Treatment How to access health informa tion online Indication:Nonsmoker Start:09-Jun-2020 Instruction Type:Patient Education How to access health informa tion online - Detail Indication:Nonsmoker Start:09-Jun-2020 Instruction Type:Patient Education Patient Instructions Indication:Nonsmoker Start:09-Jun-2020 Instruction Type:Provider Instructions for Treatment [facility]; [facility] Work Phone: Instructions* Name Dates Details Patient Instructions Indication:Nonsmoker Start:07-Mar-2023 Instruction Type:Provider Instructions for Treatment How to Access Health Informa tion Online using Patient Portal and [employer]rd [employer] Apps Indication:Nonsmoker Start:07-Mar-2023 Instruction Type:Patient Education Patient Instructions Indication:Chest pain Start:08-Feb-2023 Instruction Type:Provider Instructions for Treatment How to Access Health Informa tion Online using Patient Portal and [employer]rd [employer] Apps Indication:Chest pain Start:08-Feb-2023 Instruction Type:Patient Education How to Access Health Informa tion Online using Patient Portal and [employer]rd [employer] Apps Indication:Nonsmoker Start:21-Oct-2022 Instruction Type:Patient Education Patient Instructions Indication:Nonsmoker Start:21-Oct-2022 Instruction Type:Provider Instructions for Treatment Patient Instructions Indication:BMI 26.0-26.9,adult Start:28-Sep-2022 Instruction Type:Provider Instructions for Treatment How to Access Health Informa tion Online using Patient Portal and [employer]rd [employer] Apps Indication:BMI 26.0-26.9,adult Start:28-Sep-2022 Instruction Type:Patient Education Patient Instructions Indication:BMI 26.0-26.9,adult Start:19-Sep-2022 Instruction Type:Provider Instructions for Treatment How to Access Health Informa tion Online using Patient Portal and 3rd [employer] Apps Indication:BMI 26.0-26.9,adult Start:19-Sep-2022 Instruction Type:Patient Education Patient Instructions Indication:BMI 26.0-26.9,adult Start:13-Jul-2022 Instruction Type:Provider Instructions for Treatment How to Access Health Informa tion Online using Patient Portal and 3rd [employer] Apps Indication:BMI 26.0-26.9,adult Start:13-Jul-2022 Instruction Type:Patient Education Patient Instructions Indication:BMI 26.0-26.9,adult Start:15-Jun-2022 Instruction Type:Provider Instructions for Treatment How to Access Health Informa tion Online using Patient Portal and [employer]rd [employer] Apps Indication:BMI 26.0-26.9,adult Start:15-Jun-2022 Instruction Type:Patient Education How to Access Health Informa tion Online using Patient Portal and 3rd [employer] Apps Indication:Nonsmoker Start:31-May-2022 Instruction Type:Patient Education Patient Instructions Indication:Nonsmoker Start:31-May-2022 Instruction Type:Provider Instructions for Treatment Patient Instructions Indication:BMI 26.0-26.9,adult Start:27-May-2022 Instruction Type:Provider Instructions for Treatment How to Access Health Informa tion Online using Patient Portal and [employer]rd [employer] Apps Indication:BMI 26.0-26.9,adult Start:27-May-2022 Instruction Type:Patient Education Patient Instructions Indication:BMI 26.0-26.9,adult Start:11-May-2022 Instruction Type:Provider Instructions for Treatment How to Access Health Informa tion Online using Patient Portal and [employer]rd [employer] Apps Indication:BMI 26.0-26.9,adult Start:11-May-2022 Instruction Type:Patient Education Patient Instructions Indication:BMI 27.0-27.9,adult Start:26-Jan-2022 Instruction Type:Provider Instructions for Treatment How to Access Health Informa tion Online using Patient Portal and [employer]rd [employer] Apps Indication:BMI 27.0-27.9,adult Start:26-Jan-2022 Instruction Type:Patient Education Patient Instructions Indication:BMI 27.0-27.9,adult Start:17-Mar-2021 Instruction Type:Provider Instructions for Treatment How to Access Health Informa tion Online using Patient Portal and 3rd [employer] Apps Indication:Nonsmoker Start:17-Mar-2021 Instruction Type:Patient Education Patient Instructions Indication:Nonsmoker Start:01-Jan-2021 Instruction Type:Provider Instructions for Treatment How to Access Health Informa tion Online using Patient Portal and [employer]rd [employer] Apps Indication:Nonsmoker Start:01-Jan-2021 Instruction Type:Patient Education How to access health informa tion online Indication:BMI 27.0-27.9,adult Start:07-Sep-2020 Instruction Type:Patient Education How to access health informa tion online - Detail Indication:BMI 27.0-27.9,adult Start:07-Sep-2020 Instruction Type:Patient Education Patient Instructions Indication:BMI 27.0-27.9,adult Start:07-Sep-2020 Instruction Type:Provider Instructions for Treatment How to access health informa tion online Indication:Nonsmoker Start:31-Aug-2020 Instruction Type:Patient Education How to access health informa tion online - Detail Indication:Nonsmoker Start:31-Aug-2020 Instruction Type:Patient Education Patient Instructions Indication:Nonsmoker Start:31-Aug-2020 Instruction Type:Provider Instructions for Treatment How to access health informa tion online Indication:Nonsmoker Start:31-Jul-2020 Instruction Type:Patient Education How to access health informa tion online - Detail Indication:Nonsmoker Start:31-Jul-2020 Instruction Type:Patient Education Patient Instructions Indication:Nonsmoker Start:31-Jul-2020 Instruction Type:Provider Instructions for Treatment How to access health informa tion online Indication:Nonsmoker Start:17-Jun-2020 Instruction Type:Patient Education How to access health informa tion online - Detail Indication:Nonsmoker Start:17-Jun-2020 Instruction Type:Patient Education Patient Instructions Indication:BMI 27.0-27.9,adult Start:17-Jun-2020 Instruction Type:Provider Instructions for Treatment How to access health informa tion online Indication:Nonsmoker Start:09-Jun-2020 Instruction Type:Patient Education How to access health informa tion online - Detail Indication:Nonsmoker Start:09-Jun-2020 Instruction Type:Patient Education Patient Instructions Indication:Nonsmoker Start:09-Jun-2020 Instruction Type:Provider Instructions for Treatment [facility] Work Phone: Instructions* Name Dates Details Patient Instructions Indication:Nonsmoker Start:07-Mar-2023 Instruction Type:Provider Instructions for Treatment How to Access Health Informa tion Online using Patient Portal and [employer]rd [employer] Apps Indication:Nonsmoker Start:07-Mar-2023 Instruction Type:Patient Education Patient Instructions Indication:Chest pain Start:08-Feb-2023 Instruction Type:Provider Instructions for Treatment How to Access Health Informa tion Online using Patient Portal and [employer]rd [employer] Apps Indication:Chest pain Start:08-Feb-2023 Instruction Type:Patient Education How to Access Health Informa tion Online using Patient Portal and [employer] Apps Indication:Nonsmoker Start:21-Oct-2022 Instruction Type:Patient Education Patient Instructions Indication:Nonsmoker Start:21-Oct-2022 Instruction Type:Provider Instructions for Treatment Patient Instructions Indication:BMI 26.0-26.9,adult Start:28-Sep-2022 Instruction Type:Provider Instructions for Treatment How to Access Health Informa tion Online using Patient Portal and [employer]rd [employer] Apps Indication:BMI 26.0-26.9,adult Start:28-Sep-2022 Instruction Type:Patient Education Patient Instructions Indication:BMI 26.0-26.9,adult Start:19-Sep-2022 Instruction Type:Provider Instructions for Treatment How to Access Health Informa tion Online using Patient Portal and [employer]rd [employer] Apps Indication:BMI 26.0-26.9,adult Start:19-Sep-2022 Instruction Type:Patient Education Patient Instructions Indication:BMI 26.0-26.9,adult Start:13-Jul-2022 Instruction Type:Provider Instructions for Treatment How to Access Health Informa tion Online using Patient Portal and [employer]rd [employer] Apps Indication:BMI 26.0-26.9,adult Start:13-Jul-2022 Instruction Type:Patient Education Patient Instructions Indication:BMI 26.0-26.9,adult Start:15-Jun-2022 Instruction Type:Provider Instructions for Treatment How to Access Health Informa tion Online using Patient Portal and [employer] Apps Indication:BMI 26.0-26.9,adult Start:15-Jun-2022 Instruction Type:Patient Education How to Access Health Informa tion Online using Patient Portal and [employer]rd [employer] Apps Indication:Nonsmoker Start:31-May-2022 Instruction Type:Patient Education Patient Instructions Indication:Nonsmoker Start:31-May-2022 Instruction Type:Provider Instructions for Treatment Patient Instructions Indication:BMI 26.0-26.9,adult Start:27-May-2022 Instruction Type:Provider Instructions for Treatment How to Access Health Informa tion Online using Patient Portal and [employer]rd [employer] Apps Indication:BMI 26.0-26.9,adult Start:27-May-2022 Instruction Type:Patient Education Patient Instructions Indication:BMI 26.0-26.9,adult Start:11-May-2022 Instruction Type:Provider Instructions for Treatment How to Access Health Informa tion Online using Patient Portal and [employer]rd [employer] Apps Indication:BMI 26.0-26.9,adult Start:11-May-2022 Instruction Type:Patient Education Patient Instructions Indication:BMI 27.0-27.9,adult Start:26-Jan-2022 Instruction Type:Provider Instructions for Treatment How to Access Health Informa tion Online using Patient Portal and [employer] Apps Indication:BMI 27.0-27.9,adult Start:26-Jan-2022 Instruction Type:Patient Education Patient Instructions Indication:BMI 27.0-27.9,adult Start:17-Mar-2021 Instruction Type:Provider Instructions for Treatment How to Access Health Informa tion Online using Patient Portal and [employer] Apps Indication:Nonsmoker Start:17-Mar-2021 Instruction Type:Patient Education Patient Instructions Indication:Nonsmoker Start:01-Jan-2021 Instruction Type:Provider Instructions for Treatment How to Access Health Informa tion Online using Patient Portal and [employer]rd [employer] Apps Indication:Nonsmoker Start:01-Jan-2021 Instruction Type:Patient Education How to access health informa tion online Indication:BMI 27.0-27.9,adult Start:07-Sep-2020 Instruction Type:Patient Education How to access health informa tion online - Detail Indication:BMI 27.0-27.9,adult Start:07-Sep-2020 Instruction Type:Patient Education Patient Instructions Indication:BMI 27.0-27.9,adult Start:07-Sep-2020 Instruction Type:Provider Instructions for Treatment How to access health informa tion online Indication:Nonsmoker Start:31-Aug-2020 Instruction Type:Patient Education How to access health informa tion online - Detail Indication:Nonsmoker Start:31-Aug-2020 Instruction Type:Patient Education Patient Instructions Indication:Nonsmoker Start:31-Aug-2020 Instruction Type:Provider Instructions for Treatment How to access health informa tion online Indication:Nonsmoker Start:31-Jul-2020 Instruction Type:Patient Education How to access health informa tion online - Detail Indication:Nonsmoker Start:31-Jul-2020 Instruction Type:Patient Education Patient Instructions Indication:Nonsmoker Start:31-Jul-2020 Instruction Type:Provider Instructions for Treatment How to access health informa tion online Indication:Nonsmoker Start:17-Jun-2020 Instruction Type:Patient Education How to access health informa tion online - Detail Indication:Nonsmoker Start:17-Jun-2020 Instruction Type:Patient Education Patient Instructions Indication:BMI 27.0-27.9,adult Start:17-Jun-2020 Instruction Type:Provider Instructions for Treatment How to access health informa tion online Indication:Nonsmoker Start:09-Jun-2020 Instruction Type:Patient Education How to access health informa tion online - Detail Indication:Nonsmoker Start:09-Jun-2020 Instruction Type:Patient Education Patient Instructions Indication:Nonsmoker Start:09-Jun-2020 Instruction Type:Provider Instructions for Treatment [facility]; [facility] Work Phone: Instructions* Name Dates Details Patient Instructions Indication:Nonsmoker Start:31-May-2023 Instruction Type:Provider Instructions for Treatment How to Access Health Informa tion Online using Patient Portal and [employer]rd [employer] Apps Indication:Nonsmoker Start:31-May-2023 Instruction Type:Patient Education Patient Instructions Indication:Nonsmoker Start:07-Mar-2023 Instruction Type:Provider Instructions for Treatment How to Access Health Informa tion Online using Patient Portal and [employer] Apps Indication:Nonsmoker Start:07-Mar-2023 Instruction Type:Patient Education Patient Instructions Indication:Chest pain Start:08-Feb-2023 Instruction Type:Provider Instructions for Treatment How to Access Health Informa tion Online using Patient Portal and [employer]rd [employer] Apps Indication:Chest pain Start:08-Feb-2023 Instruction Type:Patient Education How to Access Health Informa tion Online using Patient Portal and [employer] Apps Indication:Nonsmoker Start:21-Oct-2022 Instruction Type:Patient Education Patient Instructions Indication:Nonsmoker Start:21-Oct-2022 Instruction Type:Provider Instructions for Treatment Patient Instructions Indication:BMI 26.0-26.9,adult Start:28-Sep-2022 Instruction Type:Provider Instructions for Treatment How to Access Health Informa tion Online using Patient Portal and [employer]rd [employer] Apps Indication:BMI 26.0-26.9,adult Start:28-Sep-2022 Instruction Type:Patient Education Patient Instructions Indication:BMI 26.0-26.9,adult Start:19-Sep-2022 Instruction Type:Provider Instructions for Treatment How to Access Health Informa tion Online using Patient Portal and [employer] Apps Indication:BMI 26.0-26.9,adult Start:19-Sep-2022 Instruction Type:Patient Education Patient Instructions Indication:BMI 26.0-26.9,adult Start:13-Jul-2022 Instruction Type:Provider Instructions for Treatment How to Access Health Informa tion Online using Patient Portal and [employer] Apps Indication:BMI 26.0-26.9,adult Start:13-Jul-2022 Instruction Type:Patient Education Patient Instructions Indication:BMI 26.0-26.9,adult Start:15-Jun-2022 Instruction Type:Provider Instructions for Treatment How to Access Health Informa tion Online using Patient Portal and [employer] Apps Indication:BMI 26.0-26.9,adult Start:15-Jun-2022 Instruction Type:Patient Education How to Access Health Informa tion Online using Patient Portal and [employer] Apps Indication:Nonsmoker Start:31-May-2022 Instruction Type:Patient Education Patient Instructions Indication:Nonsmoker Start:31-May-2022 Instruction Type:Provider Instructions for Treatment Patient Instructions Indication:BMI 26.0-26.9,adult Start:27-May-2022 Instruction Type:Provider Instructions for Treatment How to Access Health Informa tion Online using Patient Portal and [employer] Apps Indication:BMI 26.0-26.9,adult Start:27-May-2022 Instruction Type:Patient Education Patient Instructions Indication:BMI 26.0-26.9,adult Start:11-May-2022 Instruction Type:Provider Instructions for Treatment How to Access Health Informa tion Online using Patient Portal and [employer] Apps Indication:BMI 26.0-26.9,adult Start:11-May-2022 Instruction Type:Patient Education Patient Instructions Indication:BMI 27.0-27.9,adult Start:26-Jan-2022 Instruction Type:Provider Instructions for Treatment How to Access Health Informa tion Online using Patient Portal and [employer] Apps Indication:BMI 27.0-27.9,adult Start:26-Jan-2022 Instruction Type:Patient Education Patient Instructions Indication:BMI 27.0-27.9,adult Start:17-Mar-2021 Instruction Type:Provider Instructions for Treatment How to Access Health Informa tion Online using Patient Portal and [employer] Apps Indication:Nonsmoker Start:17-Mar-2021 Instruction Type:Patient Education Patient Instructions Indication:Nonsmoker Start:01-Jan-2021 Instruction Type:Provider Instructions for Treatment How to Access Health Informa tion Online using Patient Portal and [employer] Apps Indication:Nonsmoker Start:01-Jan-2021 Instruction Type:Patient Education How to access health informa tion online Indication:BMI 27.0-27.9,adult Start:07-Sep-2020 Instruction Type:Patient Education How to access health informa tion online - Detail Indication:BMI 27.0-27.9,adult Start:07-Sep-2020 Instruction Type:Patient Education Patient Instructions Indication:BMI 27.0-27.9,adult Start:07-Sep-2020 Instruction Type:Provider Instructions for Treatment How to access health informa tion online Indication:Nonsmoker Start:31-Aug-2020 Instruction Type:Patient Education How to access health informa tion online - Detail Indication:Nonsmoker Start:31-Aug-2020 Instruction Type:Patient Education Patient Instructions Indication:Nonsmoker Start:31-Aug-2020 Instruction Type:Provider Instructions for Treatment How to access health informa tion online Indication:Nonsmoker Start:31-Jul-2020 Instruction Type:Patient Education How to access health informa tion online - Detail Indication:Nonsmoker Start:31-Jul-2020 Instruction Type:Patient Education Patient Instructions Indication:Nonsmoker Start:31-Jul-2020 Instruction Type:Provider Instructions for Treatment How to access health informa tion online Indication:Nonsmoker Start:17-Jun-2020 Instruction Type:Patient Education How to access health informa tion online - Detail Indication:Nonsmoker Start:17-Jun-2020 Instruction Type:Patient Education Patient Instructions Indication:BMI 27.0-27.9,adult Start:17-Jun-2020 Instruction Type:Provider Instructions for Treatment How to access health informa tion online Indication:Nonsmoker Start:09-Jun-2020 Instruction Type:Patient Education How to access health informa tion online - Detail Indication:Nonsmoker Start:09-Jun-2020 Instruction Type:Patient Education Patient Instructions Indication:Nonsmoker Start:09-Jun-2020 Instruction Type:Provider Instructions for Treatment [facility]; [facility] Work Phone: Instructions* Name Dates Details Patient Instructions Indication:Nonsmoker Start:31-May-2023 Instruction Type:Provider Instructions for Treatment How to Access Health Informa tion Online using Patient Portal and [employer]rd [employer] Apps Indication:Nonsmoker Start:31-May-2023 Instruction Type:Patient Education Patient Instructions Indication:Nonsmoker Start:07-Mar-2023 Instruction Type:Provider Instructions for Treatment How to Access Health Informa tion Online using Patient Portal and [employer] Apps Indication:Nonsmoker Start:07-Mar-2023 Instruction Type:Patient Education Patient Instructions Indication:Chest pain Start:08-Feb-2023 Instruction Type:Provider Instructions for Treatment How to Access Health Informa tion Online using Patient Portal and [employer] Apps Indication:Chest pain Start:08-Feb-2023 Instruction Type:Patient Education How to Access Health Informa tion Online using Patient Portal and [employer] Apps Indication:Nonsmoker Start:21-Oct-2022 Instruction Type:Patient Education Patient Instructions Indication:Nonsmoker Start:21-Oct-2022 Instruction Type:Provider Instructions for Treatment Patient Instructions Indication:BMI 26.0-26.9,adult Start:28-Sep-2022 Instruction Type:Provider Instructions for Treatment How to Access Health Informa tion Online using Patient Portal and [employer] Apps Indication:BMI 26.0-26.9,adult Start:28-Sep-2022 Instruction Type:Patient Education Patient Instructions Indication:BMI 26.0-26.9,adult Start:19-Sep-2022 Instruction Type:Provider Instructions for Treatment How to Access Health Informa tion Online using Patient Portal and [employer] Apps Indication:BMI 26.0-26.9,adult Start:19-Sep-2022 Instruction Type:Patient Education Patient Instructions Indication:BMI 26.0-26.9,adult Start:13-Jul-2022 Instruction Type:Provider Instructions for Treatment How to Access Health Informa tion Online using Patient Portal and [employer] Apps Indication:BMI 26.0-26.9,adult Start:13-Jul-2022 Instruction Type:Patient Education Patient Instructions Indication:BMI 26.0-26.9,adult Start:15-Jun-2022 Instruction Type:Provider Instructions for Treatment How to Access Health Informa tion Online using Patient Portal and [employer] Apps Indication:BMI 26.0-26.9,adult Start:15-Jun-2022 Instruction Type:Patient Education How to Access Health Informa tion Online using Patient Portal and [employer] Apps Indication:Nonsmoker Start:31-May-2022 Instruction Type:Patient Education Patient Instructions Indication:Nonsmoker Start:31-May-2022 Instruction Type:Provider Instructions for Treatment Patient Instructions Indication:BMI 26.0-26.9,adult Start:27-May-2022 Instruction Type:Provider Instructions for Treatment How to Access Health Informa tion Online using Patient Portal and [employer] Apps Indication:BMI 26.0-26.9,adult Start:27-May-2022 Instruction Type:Patient Education Patient Instructions Indication:BMI 26.0-26.9,adult Start:11-May-2022 Instruction Type:Provider Instructions for Treatment How to Access Health Informa tion Online using Patient Portal and [employer] Apps Indication:BMI 26.0-26.9,adult Start:11-May-2022 Instruction Type:Patient Education Patient Instructions Indication:BMI 27.0-27.9,adult Start:26-Jan-2022 Instruction Type:Provider Instructions for Treatment How to Access Health Informa tion Online using Patient Portal and [employer] Apps Indication:BMI 27.0-27.9,adult Start:26-Jan-2022 Instruction Type:Patient Education Patient Instructions Indication:BMI 27.0-27.9,adult Start:17-Mar-2021 Instruction Type:Provider Instructions for Treatment How to Access Health Informa tion Online using Patient Portal and [employer] Apps Indication:Nonsmoker Start:17-Mar-2021 Instruction Type:Patient Education Patient Instructions Indication:Nonsmoker Start:01-Jan-2021 Instruction Type:Provider Instructions for Treatment How to Access Health Informa tion Online using Patient Portal and [employer] Apps Indication:Nonsmoker Start:01-Jan-2021 Instruction Type:Patient Education How to access health informa tion online Indication:BMI 27.0-27.9,adult Start:07-Sep-2020 Instruction Type:Patient Education How to access health informa tion online - Detail Indication:BMI 27.0-27.9,adult Start:07-Sep-2020 Instruction Type:Patient Education Patient Instructions Indication:BMI 27.0-27.9,adult Start:07-Sep-2020 Instruction Type:Provider Instructions for Treatment How to access health informa tion online Indication:Nonsmoker Start:31-Aug-2020 Instruction Type:Patient Education How to access health informa tion online - Detail Indication:Nonsmoker Start:31-Aug-2020 Instruction Type:Patient Education Patient Instructions Indication:Nonsmoker Start:31-Aug-2020 Instruction Type:Provider Instructions for Treatment How to access health informa tion online Indication:Nonsmoker Start:31-Jul-2020 Instruction Type:Patient Education How to access health informa tion online - Detail Indication:Nonsmoker Start:31-Jul-2020 Instruction Type:Patient Education Patient Instructions Indication:Nonsmoker Start:31-Jul-2020 Instruction Type:Provider Instructions for Treatment How to access health informa tion online Indication:Nonsmoker Start:17-Jun-2020 Instruction Type:Patient Education How to access health informa tion online - Detail Indication:Nonsmoker Start:17-Jun-2020 Instruction Type:Patient Education Patient Instructions Indication:BMI 27.0-27.9,adult Start:17-Jun-2020 Instruction Type:Provider Instructions for Treatment How to access health informa tion online Indication:Nonsmoker Start:09-Jun-2020 Instruction Type:Patient Education How to access health informa tion online - Detail Indication:Nonsmoker Start:09-Jun-2020 Instruction Type:Patient Education Patient Instructions Indication:Nonsmoker Start:09-Jun-2020 Instruction Type:Provider Instructions for Treatment [facility]; [facility] Work Phone: Instructions* Name Dates Details Patient Instructions Indication:Nonsmoker Start:19-Jun-2023 Instruction Type:Provider Instructions for Treatment How to Access Health Informa tion Online using Patient Portal and [employer] Apps Indication:Nonsmoker Start:19-Jun-2023 Instruction Type:Patient Education Patient Instructions Indication:Nonsmoker Start:31-May-2023 Instruction Type:Provider Instructions for Treatment How to Access Health Informa tion Online using Patient Portal and [employer] Apps Indication:Nonsmoker Start:31-May-2023 Instruction Type:Patient Education Patient Instructions Indication:Nonsmoker Start:07-Mar-2023 Instruction Type:Provider Instructions for Treatment How to Access Health Informa tion Online using Patient Portal and [employer] Apps Indication:Nonsmoker Start:07-Mar-2023 Instruction Type:Patient Education Patient Instructions Indication:Chest pain Start:08-Feb-2023 Instruction Type:Provider Instructions for Treatment How to Access Health Informa tion Online using Patient Portal and [employer] Apps Indication:Chest pain Start:08-Feb-2023 Instruction Type:Patient Education How to Access Health Informa tion Online using Patient Portal and [employer] Apps Indication:Nonsmoker Start:21-Oct-2022 Instruction Type:Patient Education Patient Instructions Indication:Nonsmoker Start:21-Oct-2022 Instruction Type:Provider Instructions for Treatment Patient Instructions Indication:BMI 26.0-26.9,adult Start:28-Sep-2022 Instruction Type:Provider Instructions for Treatment How to Access Health Informa tion Online using Patient Portal and [employer] Apps Indication:BMI 26.0-26.9,adult Start:28-Sep-2022 Instruction Type:Patient Education Patient Instructions Indication:BMI 26.0-26.9,adult Start:19-Sep-2022 Instruction Type:Provider Instructions for Treatment How to Access Health Informa tion Online using Patient Portal and [employer] Apps Indication:BMI 26.0-26.9,adult Start:19-Sep-2022 Instruction Type:Patient Education Patient Instructions Indication:BMI 26.0-26.9,adult Start:13-Jul-2022 Instruction Type:Provider Instructions for Treatment How to Access Health Informa tion Online using Patient Portal and [employer] Apps Indication:BMI 26.0-26.9,adult Start:13-Jul-2022 Instruction Type:Patient Education Patient Instructions Indication:BMI 26.0-26.9,adult Start:15-Jun-2022 Instruction Type:Provider Instructions for Treatment How to Access Health Informa tion Online using Patient Portal and [employer] Apps Indication:BMI 26.0-26.9,adult Start:15-Jun-2022 Instruction Type:Patient Education How to Access Health Informa tion Online using Patient Portal and [employer] Apps Indication:Nonsmoker Start:31-May-2022 Instruction Type:Patient Education Patient Instructions Indication:Nonsmoker Start:31-May-2022 Instruction Type:Provider Instructions for Treatment Patient Instructions Indication:BMI 26.0-26.9,adult Start:27-May-2022 Instruction Type:Provider Instructions for Treatment How to Access Health Informa tion Online using Patient Portal and [employer] Apps Indication:BMI 26.0-26.9,adult Start:27-May-2022 Instruction Type:Patient Education Patient Instructions Indication:BMI 26.0-26.9,adult Start:11-May-2022 Instruction Type:Provider Instructions for Treatment How to Access Health Informa tion Online using Patient Portal and [employer] Apps Indication:BMI 26.0-26.9,adult Start:11-May-2022 Instruction Type:Patient Education Patient Instructions Indication:BMI 27.0-27.9,adult Start:26-Jan-2022 Instruction Type:Provider Instructions for Treatment How to Access Health Informa tion Online using Patient Portal and [employer] Apps Indication:BMI 27.0-27.9,adult Start:26-Jan-2022 Instruction Type:Patient Education Patient Instructions Indication:BMI 27.0-27.9,adult Start:17-Mar-2021 Instruction Type:Provider Instructions for Treatment How to Access Health Informa tion Online using Patient Portal and [employer] Apps Indication:Nonsmoker Start:17-Mar-2021 Instruction Type:Patient Education Patient Instructions Indication:Nonsmoker Start:01-Jan-2021 Instruction Type:Provider Instructions for Treatment How to Access Health Informa tion Online using Patient Portal and [employer] Apps Indication:Nonsmoker Start:01-Jan-2021 Instruction Type:Patient Education How to access health informa tion online Indication:BMI 27.0-27.9,adult Start:07-Sep-2020 Instruction Type:Patient Education How to access health informa tion online - Detail Indication:BMI 27.0-27.9,adult Start:07-Sep-2020 Instruction Type:Patient Education Patient Instructions Indication:BMI 27.0-27.9,adult Start:07-Sep-2020 Instruction Type:Provider Instructions for Treatment How to access health informa tion online Indication:Nonsmoker Start:31-Aug-2020 Instruction Type:Patient Education How to access health informa tion online - Detail Indication:Nonsmoker Start:31-Aug-2020 Instruction Type:Patient Education Patient Instructions Indication:Nonsmoker Start:31-Aug-2020 Instruction Type:Provider Instructions for Treatment How to access health informa tion online Indication:Nonsmoker Start:31-Jul-2020 Instruction Type:Patient Education How to access health informa tion online - Detail Indication:Nonsmoker Start:31-Jul-2020 Instruction Type:Patient Education Patient Instructions Indication:Nonsmoker Start:31-Jul-2020 Instruction Type:Provider Instructions for Treatment How to access health informa tion online Indication:Nonsmoker Start:17-Jun-2020 Instruction Type:Patient Education How to access health informa tion online - Detail Indication:Nonsmoker Start:17-Jun-2020 Instruction Type:Patient Education Patient Instructions Indication:BMI 27.0-27.9,adult Start:17-Jun-2020 Instruction Type:Provider Instructions for Treatment How to access health informa tion online Indication:Nonsmoker Start:09-Jun-2020 Instruction Type:Patient Education How to access health informa tion online - Detail Indication:Nonsmoker Start:09-Jun-2020 Instruction Type:Patient Education Patient Instructions Indication:Nonsmoker Start:09-Jun-2020 Instruction Type:Provider Instructions for Treatment [facility]; [facility] Work Phone: Instructions* Name Dates Details Patient Instructions Indication:Nonsmoker Start:19-Jun-2023 Instruction Type:Provider Instructions for Treatment How to Access Health Informa tion Online using Patient Portal and [employer] Apps Indication:Nonsmoker Start:19-Jun-2023 Instruction Type:Patient Education Patient Instructions Indication:Nonsmoker Start:31-May-2023 Instruction Type:Provider Instructions for Treatment How to Access Health Informa tion Online using Patient Portal and 3rd Republican Apps Indication:Nonsmoker Start:31-May-2023 Instruction Type:Patient Education Patient Instructions Indication:Nonsmoker Start:07-Mar-2023 Instruction Type:Provider Instructions for Treatment How to Access Health Informa tion Online using Patient Portal and 3rd Republican Apps Indication:Nonsmoker Start:07-Mar-2023 Instruction Type:Patient Education Patient Instructions Indication:Chest pain Start:08-Feb-2023 Instruction Type:Provider Instructions for Treatment How to Access Health Informa tion Online using Patient Portal and 3rd Republican Apps Indication:Chest pain Start:08-Feb-2023 Instruction Type:Patient Education How to Access Health Informa tion Online using Patient Portal and 3rd Republican Apps Indication:Nonsmoker Start:21-Oct-2022 Instruction Type:Patient Education Patient Instructions Indication:Nonsmoker Start:21-Oct-2022 Instruction Type:Provider Instructions for Treatment Patient Instructions Indication:BMI 26.0-26.9,adult Start:28-Sep-2022 Instruction Type:Provider Instructions for Treatment How to Access Health Informa tion Online using Patient Portal and 3rd Republican Apps Indication:BMI 26.0-26.9,adult Start:28-Sep-2022 Instruction Type:Patient Education Patient Instructions Indication:BMI 26.0-26.9,adult Start:19-Sep-2022 Instruction Type:Provider Instructions for Treatment How to Access Health Informa tion Online using Patient Portal and 3rd Republican Apps Indication:BMI 26.0-26.9,adult Start:19-Sep-2022 Instruction Type:Patient Education Patient Instructions Indication:BMI 26.0-26.9,adult Start:13-Jul-2022 Instruction Type:Provider Instructions for Treatment How to Access Health Informa tion Online using Patient Portal and 3rd Republican Apps Indication:BMI 26.0-26.9,adult Start:13-Jul-2022 Instruction Type:Patient Education Patient Instructions Indication:BMI 26.0-26.9,adult Start:15-Jun-2022 Instruction Type:Provider Instructions for Treatment How to Access Health Informa tion Online using Patient Portal and 3rd Republican Apps Indication:BMI 26.0-26.9,adult Start:15-Jun-2022 Instruction Type:Patient Education How to Access Health Informa tion Online using Patient Portal and 3rd Republican Apps Indication:Nonsmoker Start:31-May-2022 Instruction Type:Patient Education Patient Instructions Indication:Nonsmoker Start:31-May-2022 Instruction Type:Provider Instructions for Treatment Patient Instructions Indication:BMI 26.0-26.9,adult Start:27-May-2022 Instruction Type:Provider Instructions for Treatment How to Access Health Informa tion Online using Patient Portal and 3rd Republican Apps Indication:BMI 26.0-26.9,adult Start:27-May-2022 Instruction Type:Patient Education Patient Instructions Indication:BMI 26.0-26.9,adult Start:11-May-2022 Instruction Type:Provider Instructions for Treatment How to Access Health Informa tion Online using Patient Portal and 3rd Republican Apps Indication:BMI 26.0-26.9,adult Start:11-May-2022 Instruction Type:Patient Education Patient Instructions Indication:BMI 27.0-27.9,adult Start:26-Jan-2022 Instruction Type:Provider Instructions for Treatment How to Access Health Informa tion Online using Patient Portal and 3rd [employer] Apps Indication:BMI 27.0-27.9,adult Start:26-Jan-2022 Instruction Type:Patient Education Patient Instructions Indication:BMI 27.0-27.9,adult Start:17-Mar-2021 Instruction Type:Provider Instructions for Treatment How to Access Health Informa tion Online using Patient Portal and 3rd Republican Apps Indication:Nonsmoker Start:17-Mar-2021 Instruction Type:Patient Education Patient Instructions Indication:Nonsmoker Start:01-Jan-2021 Instruction Type:Provider Instructions for Treatment How to Access Health Informa tion Online using Patient Portal and 3rd Republican Apps Indication:Nonsmoker Start:01-Jan-2021 Instruction Type:Patient Education How to access health informa tion online Indication:BMI 27.0-27.9,adult Start:07-Sep-2020 Instruction Type:Patient Education How to access health informa tion online - Detail Indication:BMI 27.0-27.9,adult Start:07-Sep-2020 Instruction Type:Patient Education Patient Instructions Indication:BMI 27.0-27.9,adult Start:07-Sep-2020 Instruction Type:Provider Instructions for Treatment How to access health informa tion online Indication:Nonsmoker Start:31-Aug-2020 Instruction Type:Patient Education How to access health informa tion online - Detail Indication:Nonsmoker Start:31-Aug-2020 Instruction Type:Patient Education Patient Instructions Indication:Nonsmoker Start:31-Aug-2020 Instruction Type:Provider Instructions for Treatment How to access health informa tion online Indication:Nonsmoker Start:31-Jul-2020 Instruction Type:Patient Education How to access health informa tion online - Detail Indication:Nonsmoker Start:31-Jul-2020 Instruction Type:Patient Education Patient Instructions Indication:Nonsmoker Start:31-Jul-2020 Instruction Type:Provider Instructions for Treatment How to access health informa tion online Indication:Nonsmoker Start:17-Jun-2020 Instruction Type:Patient Education How to access health informa tion online - Detail Indication:Nonsmoker Start:17-Jun-2020 Instruction Type:Patient Education Patient Instructions Indication:BMI 27.0-27.9,adult Start:17-Jun-2020 Instruction Type:Provider Instructions for Treatment How to access health informa tion online Indication:Nonsmoker Start:09-Jun-2020 Instruction Type:Patient Education How to access health informa tion online - Detail Indication:Nonsmoker Start:09-Jun-2020 Instruction Type:Patient Education Patient Instructions Indication:Nonsmoker Start:09-Jun-2020 Instruction Type:Provider Instructions for Treatment [facility] Work Phone: reason for referral (narrative)* Outpatient Procedure (Routine) - Closed Specialty Diagnoses / Procedures Referred By Lizett t [facility] Diagnoses Other chest pain Procedures ECG COMPLETE ECG ROUTINE ECG W/LEAST 12 LDS W/I&R Prashanth Luna APRN.ALEX [address] [place] [address] [facility] [address] [place] [address] Referral ID Status Reason Start Date Expiration Date V isits Requested Visits Authorized [id number] Closed Auto-Generate d Referral 01/31/2023 01/31/2024 1 1 [facility] for referral (narrative)* Outpatient Procedure (Routine) - Pending Review Specialty Diagnoses / Procedures Referred By Lizett patel Referred [facility] Diagnoses Persistent asthma with status asthmaticus, unspecified asthma severity Procedures SPIROMETRY - BASELINE AND POST DILATOR BRNCDILAT RSPSE SPMTRY PRE&POST-BRNCDILAT Awilda Be MD [address] [place] [address] [facility] [address] [place] [address] Referral ID Status Reason Start Date Expiration Date Visits Requested Visits Authorized [id number] Pending Review Auto-Generat ed Referral 04/03/2023 05/02/2024 1 1 * Outpatient Procedure (Routine) - Pending Review Specialty Diagnoses / Procedures Referred By Lizett patel Referred [facility] Diagnoses Persistent asthma with status asthmaticus, unspecified asthma severity Procedures NITRIC OXIDE, EXHALED NITRIC OXIDE GAS DETERMINATION Awilda Garcia MD [address] [place] [address] [address] Referral ID Status Reason Start Date Expiration Date Visits Requested Visits Authorized [id number] Pending Review Auto-Generat ed Referral 05/04/2023 05/02/2024 1 1 [facility] for referral (narrative)* Outpatient Procedure (Routine) - Authorized Specialty Diagnoses / Procedures Referred By Contac t Referred [facility] Diagnoses Esophageal dysphagia Gastroesophageal reflux disease, unspecified whether esophagitis present Hiatal hernia Procedures EGD DIAGNOSTIC ESOPHAGOGASTRODUODENOSC OPY TRANSORAL DIAGNOSTIC Sebastian Abdalla Jr., DO [address] [place] [address] [facility] [address] [place], [place] [id number] Referral ID Status Reason Start Date Expiration Date Visits Requested Visits Authorized [id number] Authorized Auto-Generat ed Referral 04/14/2023 04/14/2024 1 1 [facility] for referral (narrative)* Outpatient Procedure (Routine) - Pending Review Specialty Diagnoses / Procedures Referred By Contac t Referred [facility] Diagnoses Hypoxemia Restrictive pattern present on pulmonary function testing Atelectasis Shortness of breath Procedures LUNG DIFFUSION CAPACITY (DLCO) DIFFUSING CAPACITY Leyla Tam MD [address] [place] [address] [facility] [address] [place], [place] [id number] Referral ID Status Reason Start Date Expiration Date Visits Requested Visits Authorized [id number] Pending Review Auto-Generat ed Referral 05/15/2023 06/13/2024 1 1 * Outpatient Procedure (Routine) - Pending Review Specialty Diagnoses / Procedures Referred By Contac t Referred To [facility] [place] Diagnoses Hypoxemia Restrictive pattern present on pulmonary function testing Atelectasis Shortness of breath Procedures LUNG VOLUMES Leyla Tam MD [address] [place] [address] [address] Referral ID Status Reason Start Date Expiration Date Visits Requested Visits Authorized [id number] Pending Review Auto-Generat ed Referral 05/15/2023 06/13/2024 1 1 * Outpatient Procedure (Routine) - Pending Review Specialty Diagnoses / Procedures Referred By Lizett t Referred To [facility] Diagnoses Hypoxemia Restrictive pattern present on pulmonary function testing Atelectasis Shortness of breath Procedures SPIROMETRY WITH DILATOR IF OBSTRUCTED BRNCDILAT RSPSE SPMTRY PRE&POST-BRNCDILAT ADMLeyla Harris MD [address] [place] [address] [address] Referral ID Status Reason Start Date Expiration Date Visits Requested Visits Authorized [id number] Pending Review Auto-Generat ed Referral 05/15/2023 06/13/2024 1 1 [facility] for referral (narrative)* Outpatient Procedure (Routine) - Pending Review Specialty Diagnoses / Procedures Referred By Lizett patel Referred [facility] Diagnoses Shortness of breath Procedures SPIROMETRY WITH DILATOR IF OBSTRUCTED BRNCDILAT RSPSE SPMTRY PRE&POST-BRNCDILAT ADMSabrina Preston MD [address] [place] [address] [address] [address] Referral ID Status Reason Start Date Expiration Date Visits Requested Visits Authorized [id number] Pending Review Auto-Generat ed Referral 3 09/26/2024 1 1 [facility] for referral (narrative)* Outpatient Procedure (Routine) - Authorized Specialty Diagnoses / Procedures Referred By Lizett t Referred To Contact [facility] Diagnoses Syncope, unspecified syncope type Convulsive syncope Procedures EPIL EEG ROUTINE ELECTROENCEPHALOGRAM REC COMA/[place] [address] [place] [address] [facility] [place] [address] [place] [address] Referral ID Status Reason Start Date Expiration Date Visits Requested Visits Authorized [id number] Authorized Auto-Generat ed Referral 11/03/2023 11/03/2024 1 1 [facility] for referral (narrative)* Outpatient Procedure (Routine) - Closed Specialty Diagnoses / Procedures Referred By Lizett patel Referred [facility] Diagnoses Esophageal dysphagia Gastroesophageal reflux disease, unspecified whether esophagitis present Hiatal hernia Procedures EGD DIAGNOSTIC ESOPHAGOGASTRODUODENOSC OPY TRANSORAL DIAGNOSTIC Sebastian Abdalla Jr., DO [address] [place] [address] [facility] [address] [place] [address] Referral ID Status Reason Start Date Expiration Date V isits Requested Visits Authorized [id number] Closed Auto-Generate d Referral 04/14/2023 04/14/2024 1 1 [facility] for referral (narrative)* Diagnostic Procedure Only (Routine) - Closed Specialty Diagnoses / Procedures Referred By Lizett patel Referred To Contact [facility] Diagnoses Neck pain Procedures XR CERV OTHER 4V AP/LAT/OBL RADEX SPINE CERVICAL 4 OR 5 VIEWS Awilda Garcia MD [address] [place] [address] [place] [id number] Referral ID Status Reason Start Date Expiration Date V isits Requested Visits Authorized [id number] Closed Auto-Generate d Referral 12/20/2022 01/19/2024 1 1 * Diagnostic Procedure Only (Routine) - Closed Specialty Diagnoses / Procedures Referred By Lizett patel Referred To Contact [facility] Diagnoses Left elbow pain Procedures XR ELBOW GENERAL 2V AP/LAT LEFT RADEX ELBOW 2 VIEWS Awilda Garcia MD [address] [place] [address] [place] [address] Referral ID Status Reason Start Date Expiration Date V isits Requested Visits Authorized [id number] Closed Auto-Generate d Referral 12/20/2022 01/19/2024 1 1 * Diagnostic Procedure Only (Routine) - Closed Specialty Diagnoses / Procedures Referred By Contac t Referred To Contact [facility] Diagnoses Chronic left shoulder pain Procedures XR SHOULDER GENERAL 3V OR MORE AP/TRUE AP/OTHER LEFT RADEX SHOULDER COMPLETE MINIMUM 2 VIEWS Awilda Garcia MD [address] [place] [address] [place] [address] Referral ID Status Reason Start Date Expiration Date V isits Requested Visits Authorized [id number] Closed Auto-Generate d Referral 12/20/2022 01/19/2024 1 1 [facility] for referral (narrative)* Outpatient Procedure (Routine) - New Request Specialty Diagnoses / Procedures Referred By Contac t Referred [facility] Diagnoses 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) Procedures ECG COMPLETE ECG ROUTINE ECG W/LEAST 12 LDS W/I&[place] [address] [place] [address] [facility] [address] [place] [address] Referral ID Status Reason Start Date Expiration Date Visits Requested Visits Authorized [id number] New Request Auto-Generat ed Referral 07/18/2025 1 1 [facility] for referral (narrative)No reason for referral information availableWMagruder [facility] Work Phone: Reason for visit Narrative* Diagnostic Procedure Only (Routine) - Closed Specialty Diagnoses / Procedures Referred By Contac t Referred To Contact [facility] Diagnoses 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) Procedures NM CARDIAC PERF STRESS/PHARM MYOCARDIAL [place] [address] [place] [address] [facility] [address] [place] [address] Referral ID Status Reason Start Date Expiration Date V isits Requested Visits Authorized [id number] Closed Auto-Generate d Referral 02/15/2023 03/16/2024 1 1 [facility] for visit Narrative* Outpatient Procedure (Routine) - Closed Specialty Diagnoses / Procedures Referred By Lizett patel Referred [facility] Diagnoses Esophageal dysphagia Gastroesophageal reflux disease, unspecified whether esophagitis present Hiatal hernia Procedures EGD DIAGNOSTIC ESOPHAGOGASTRODUODENOSC OPY TRANSORAL DIAGNOSTIC Sebastian Abdalla Jr., [address] [place] [address] [facility] [address] [place] [address] Referral ID Status Reason Start Date Expiration Date V isits Requested Visits Authorized [id number] Closed Auto-Generate d Referral 04/14/2023 04/14/2024 1 1 [facility] for visit Narrative* Diagnostic Procedure Only (Routine) - Closed Specialty Diagnoses / Procedures Referred By Lizett patel Referred To Contact XR IMAGING Diagnoses Neck pain Procedures XR CERV OTHER 4V AP/LAT/OBL RADEX SPINE CERVICAL 4 OR 5 VIEWS Awilda Garcia MD [address] [place] [address] [place] [id number] Referral ID Status Reason Start Date Expiration Date V isits Requested Visits Authorized [id number] Closed Auto-Generate d Referral 12/20/2022 01/19/2024 1 1 [facility] Instructions Name Dates Details How to access health informa tion online Indication:Nonsmoker Start:09-Jun-2020 Instruction Type:Patient Edu cation How to access health informa tion online - Detail Indication:Nonsmoker Start:09-Jun-2020 Instruction Type:Patient Edu cation Patient Instructions Indication:Nonsmoker Start:09-Jun-2020 Instruction Type:Provider Instructions for Treatment Name Dates Details How to access health informa tion online Indication:Nonsmoker Start:09-Jun-2020 Instruction Type:Patient Edu cation How to access health informa tion online - Detail Indication:Nonsmoker Start:09-Jun-2020 Instruction Type:Patient Edu cation Patient Instructions Indication:Nonsmoker Start:09-Jun-2020 Instruction Type:Provider Instructions for Treatment Name Dates Details How to access health informa tion online Indication:Nonsmoker Start:17-Jun-2020 Instruction Type:Patient Education How to access health informa tion online - Detail Indication:Nonsmoker Start:17-Jun-2020 Instruction Type:Patient Education Patient Instructions Indication:BMI 27.0-27.9,adult Start:17-Jun-2020 Instruction Type:Provider Instructions for Treatment How to access health informa tion online Indication:Nonsmoker Start:09-Jun-2020 Instruction Type:Patient Education How to access health informa tion online - Detail Indication:Nonsmoker Start:09-Jun-2020 Instruction Type:Patient Education Patient Instructions Indication:Nonsmoker Start:09-Jun-2020 Instruction Type:Provider Instructions for Treatment Name Dates Details How to access health informa tion online Indication:Nonsmoker Start:17-Jun-2020 Instruction Type:Patient Education How to access health informa tion online - Detail Indication:Nonsmoker Start:17-Jun-2020 Instruction Type:Patient Education Patient Instructions Indication:BMI 27.0-27.9,adult Start:17-Jun-2020 Instruction Type:Provider Instructions for Treatment How to access health informa tion online Indication:Nonsmoker Start:09-Jun-2020 Instruction Type:Patient Education How to access health informa tion online - Detail Indication:Nonsmoker Start:09-Jun-2020 Instruction Type:Patient Education Patient Instructions Indication:Nonsmoker Start:09-Jun-2020 Instruction Type:Provider Instructions for Treatment Name Dates Details How to access health informa tion online Indication:Nonsmoker Start:31-Jul-2020 Instruction Type:Patient Education How to access health informa tion online - Detail Indication:Nonsmoker Start:31-Jul-2020 Instruction Type:Patient Education Patient Instructions Indication:Nonsmoker Start:31-Jul-2020 Instruction Type:Provider Instructions for Treatment How to access health informa tion online Indication:Nonsmoker Start:17-Jun-2020 Instruction Type:Patient Education How to access health informa tion online - Detail Indication:Nonsmoker Start:17-Jun-2020 Instruction Type:Patient Education Patient Instructions Indication:BMI 27.0-27.9,adult Start:17-Jun-2020 Instruction Type:Provider Instructions for Treatment How to access health informa tion online Indication:Nonsmoker Start:09-Jun-2020 Instruction Type:Patient Education How to access health informa tion online - Detail Indication:Nonsmoker Start:09-Jun-2020 Instruction Type:Patient Education Patient Instructions Indication:Nonsmoker Start:09-Jun-2020 Instruction Type:Provider Instructions for Treatment Name Dates Details How to access health informa tion online Indication:Nonsmoker Start:31-Jul-2020 Instruction Type:Patient Education How to access health informa tion online - Detail Indication:Nonsmoker Start:31-Jul-2020 Instruction Type:Patient Education Patient Instructions Indication:Nonsmoker Start:31-Jul-2020 Instruction Type:Provider Instructions for Treatment How to access health informa tion online Indication:Nonsmoker Start:17-Jun-2020 Instruction Type:Patient Education How to access health informa tion online - Detail Indication:Nonsmoker Start:17-Jun-2020 Instruction Type:Patient Education Patient Instructions Indication:BMI 27.0-27.9,adult Start:17-Jun-2020 Instruction Type:Provider Instructions for Treatment How to access health informa tion online Indication:Nonsmoker Start:09-Jun-2020 Instruction Type:Patient Education How to access health informa tion online - Detail Indication:Nonsmoker Start:09-Jun-2020 Instruction Type:Patient Education Patient Instructions Indication:Nonsmoker Start:09-Jun-2020 Instruction Type:Provider Instructions for Treatment Name Dates Details How to access health informa tion online Indication:Nonsmoker Start:31-Aug-2020 Instruction Type:Patient Education How to access health informa tion online - Detail Indication:Nonsmoker Start:31-Aug-2020 Instruction Type:Patient Education Patient Instructions Indication:Nonsmoker Start:31-Aug-2020 Instruction Type:Provider Instructions for Treatment How to access health informa tion online Indication:Nonsmoker Start:31-Jul-2020 Instruction Type:Patient Education How to access health informa tion online - Detail Indication:Nonsmoker Start:31-Jul-2020 Instruction Type:Patient Education Patient Instructions Indication:Nonsmoker Start:31-Jul-2020 Instruction Type:Provider Instructions for Treatment How to access health informa tion online Indication:Nonsmoker Start:17-Jun-2020 Instruction Type:Patient Education How to access health informa tion online - Detail Indication:Nonsmoker Start:17-Jun-2020 Instruction Type:Patient Education Patient Instructions Indication:BMI 27.0-27.9,adult Start:17-Jun-2020 Instruction Type:Provider Instructions for Treatment How to access health informa tion online Indication:Nonsmoker Start:09-Jun-2020 Instruction Type:Patient Education How to access health informa tion online - Detail Indication:Nonsmoker Start:09-Jun-2020 Instruction Type:Patient Education Patient Instructions Indication:Nonsmoker Start:09-Jun-2020 Instruction Type:Provider Instructions for Treatment Name Dates Details How to access health informa tion online Indication:BMI 27.0-27.9,adult Start:07-Sep-2020 Instruction Type:Patient Education How to access health informa tion online - Detail Indication:BMI 27.0-27.9,adult Start:07-Sep-2020 Instruction Type:Patient Education Patient Instructions Indication:BMI 27.0-27.9,adult Start:07-Sep-2020 Instruction Type:Provider Instructions for Treatment How to access health informa tion online Indication:Nonsmoker Start:31-Aug-2020 Instruction Type:Patient Education How to access health informa tion online - Detail Indication:Nonsmoker Start:31-Aug-2020 Instruction Type:Patient Education Patient Instructions Indication:Nonsmoker Start:31-Aug-2020 Instruction Type:Provider Instructions for Treatment How to access health informa tion online Indication:Nonsmoker Start:31-Jul-2020 Instruction Type:Patient Education How to access health informa tion online - Detail Indication:Nonsmoker Start:31-Jul-2020 Instruction Type:Patient Education Patient Instructions Indication:Nonsmoker Start:31-Jul-2020 Instruction Type:Provider Instructions for Treatment How to access health informa tion online Indication:Nonsmoker Start:17-Jun-2020 Instruction Type:Patient Education How to access health informa tion online - Detail Indication:Nonsmoker Start:17-Jun-2020 Instruction Type:Patient Education Patient Instructions Indication:BMI 27.0-27.9,adult Start:17-Jun-2020 Instruction Type:Provider Instructions for Treatment How to access health informa tion online Indication:Nonsmoker Start:09-Jun-2020 Instruction Type:Patient Education How to access health informa tion online - Detail Indication:Nonsmoker Start:09-Jun-2020 Instruction Type:Patient Education Patient Instructions Indication:Nonsmoker Start:09-Jun-2020 Instruction Type:Provider Instructions for Treatment Name Dates Details How to access health informa tion online Indication:BMI 27.0-27.9,adult Start:07-Sep-2020 Instruction Type:Patient Education How to access health informa tion online - Detail Indication:BMI 27.0-27.9,adult Start:07-Sep-2020 Instruction Type:Patient Education Patient Instructions Indication:BMI 27.0-27.9,adult Start:07-Sep-2020 Instruction Type:Provider Instructions for Treatment How to access health informa tion online Indication:Nonsmoker Start:31-Aug-2020 Instruction Type:Patient Education How to access health informa tion online - Detail Indication:Nonsmoker Start:31-Aug-2020 Instruction Type:Patient Education Patient Instructions Indication:Nonsmoker Start:31-Aug-2020 Instruction Type:Provider Instructions for Treatment How to access health informa tion online Indication:Nonsmoker Start:31-Jul-2020 Instruction Type:Patient Education How to access health informa tion online - Detail Indication:Nonsmoker Start:31-Jul-2020 Instruction Type:Patient Education Patient Instructions Indication:Nonsmoker Start:31-Jul-2020 Instruction Type:Provider Instructions for Treatment How to access health informa tion online Indication:Nonsmoker Start:17-Jun-2020 Instruction Type:Patient Education How to access health informa tion online - Detail Indication:Nonsmoker Start:17-Jun-2020 Instruction Type:Patient Education Patient Instructions Indication:BMI 27.0-27.9,adult Start:17-Jun-2020 Instruction Type:Provider Instructions for Treatment How to access health informa tion online Indication:Nonsmoker Start:09-Jun-2020 Instruction Type:Patient Education How to access health informa tion online - Detail Indication:Nonsmoker Start:09-Jun-2020 Instruction Type:Patient Education Patient Instructions Indication:Nonsmoker Start:09-Jun-2020 Instruction Type:Provider Instructions for Treatment Name Dates Details How to access health informa tion online Indication:Nonsmoker Start:09-Jun-2020 Instruction Type:Patient Edu cation How to access health informa tion online - Detail Indication:Nonsmoker Start:09-Jun-2020 Instruction Type:Patient Edu cation Patient Instructions Indication:Nonsmoker Start:09-Jun-2020 Instruction Type:Provider Instructions for Treatment Name Dates Details How to access health informa tion online Indication:BMI 27.0-27.9,adult Start:07-Sep-2020 Instruction Type:Patient Education How to access health informa tion online - Detail Indication:BMI 27.0-27.9,adult Start:07-Sep-2020 Instruction Type:Patient Education Patient Instructions Indication:BMI 27.0-27.9,adult Start:07-Sep-2020 Instruction Type:Provider Instructions for Treatment How to access health informa tion online Indication:Nonsmoker Start:31-Aug-2020 Instruction Type:Patient Education How to access health informa tion online - Detail Indication:Nonsmoker Start:31-Aug-2020 Instruction Type:Patient Education Patient Instructions Indication:Nonsmoker Start:31-Aug-2020 Instruction Type:Provider Instructions for Treatment How to access health informa tion online Indication:Nonsmoker Start:31-Jul-2020 Instruction Type:Patient Education How to access health informa tion online - Detail Indication:Nonsmoker Start:31-Jul-2020 Instruction Type:Patient Education Patient Instructions Indication:Nonsmoker Start:31-Jul-2020 Instruction Type:Provider Instructions for Treatment How to access health informa tion online Indication:Nonsmoker Start:17-Jun-2020 Instruction Type:Patient Education How to access health informa tion online - Detail Indication:Nonsmoker Start:17-Jun-2020 Instruction Type:Patient Education Patient Instructions Indication:BMI 27.0-27.9,adult Start:17-Jun-2020 Instruction Type:Provider Instructions for Treatment How to access health informa tion online Indication:Nonsmoker Start:09-Jun-2020 Instruction Type:Patient Education How to access health informa tion online - Detail Indication:Nonsmoker Start:09-Jun-2020 Instruction Type:Patient Education Patient Instructions Indication:Nonsmoker Start:09-Jun-2020 Instruction Type:Provider Instructions for Treatment Name Dates Details Patient Instructions Indication:Nonsmoker Start:12-Jan-2021 Instruction Type:Provider Instructions for Treatment How to Access Health Informa tion Online using Patient Portal and [employer]rd [employer] Apps Indication:Nonsmoker Start:12-Jan-2021 Instruction Type:Patient Education Patient Instructions Indication:Nonsmoker Start:01-Jan-2021 Instruction Type:Provider Instructions for Treatment How to Access Health Informa tion Online using Patient Portal and [employer] Apps Indication:Nonsmoker Start:01-Jan-2021 Instruction Type:Patient Education How to access health informa tion online Indication:BMI 27.0-27.9,adult Start:07-Sep-2020 Instruction Type:Patient Education How to access health informa tion online - Detail Indication:BMI 27.0-27.9,adult Start:07-Sep-2020 Instruction Type:Patient Education Patient Instructions Indication:BMI 27.0-27.9,adult Start:07-Sep-2020 Instruction Type:Provider Instructions for Treatment How to access health informa tion online Indication:Nonsmoker Start:31-Aug-2020 Instruction Type:Patient Education How to access health informa tion online - Detail Indication:Nonsmoker Start:31-Aug-2020 Instruction Type:Patient Education Patient Instructions Indication:Nonsmoker Start:31-Aug-2020 Instruction Type:Provider Instructions for Treatment How to access health informa tion online Indication:Nonsmoker Start:31-Jul-2020 Instruction Type:Patient Education How to access health informa tion online - Detail Indication:Nonsmoker Start:31-Jul-2020 Instruction Type:Patient Education Patient Instructions Indication:Nonsmoker Start:31-Jul-2020 Instruction Type:Provider Instructions for Treatment How to access health informa tion online Indication:Nonsmoker Start:17-Jun-2020 Instruction Type:Patient Education How to access health informa tion online - Detail Indication:Nonsmoker Start:17-Jun-2020 Instruction Type:Patient Education Patient Instructions Indication:BMI 27.0-27.9,adult Start:17-Jun-2020 Instruction Type:Provider Instructions for Treatment How to access health informa tion online Indication:Nonsmoker Start:09-Jun-2020 Instruction Type:Patient Education How to access health informa tion online - Detail Indication:Nonsmoker Start:09-Jun-2020 Instruction Type:Patient Education Patient Instructions Indication:Nonsmoker Start:09-Jun-2020 Instruction Type:Provider Instructions for Treatment Name Dates Details Patient Instructions Indication:Nonsmoker Start:01-Jan-2021 Instruction Type:Provider Instructions for Treatment How to Access Health Informa tion Online using Patient Portal and [employer] Apps Indication:Nonsmoker Start:01-Jan-2021 Instruction Type:Patient Education How to access health informa tion online Indication:BMI 27.0-27.9,adult Start:07-Sep-2020 Instruction Type:Patient Education How to access health informa tion online - Detail Indication:BMI 27.0-27.9,adult Start:07-Sep-2020 Instruction Type:Patient Education Patient Instructions Indication:BMI 27.0-27.9,adult Start:07-Sep-2020 Instruction Type:Provider Instructions for Treatment How to access health informa tion online Indication:Nonsmoker Start:31-Aug-2020 Instruction Type:Patient Education How to access health informa tion online - Detail Indication:Nonsmoker Start:31-Aug-2020 Instruction Type:Patient Education Patient Instructions Indication:Nonsmoker Start:31-Aug-2020 Instruction Type:Provider Instructions for Treatment How to access health informa tion online Indication:Nonsmoker Start:31-Jul-2020 Instruction Type:Patient Education How to access health informa tion online - Detail Indication:Nonsmoker Start:31-Jul-2020 Instruction Type:Patient Education Patient Instructions Indication:Nonsmoker Start:31-Jul-2020 Instruction Type:Provider Instructions for Treatment How to access health informa tion online Indication:Nonsmoker Start:17-Jun-2020 Instruction Type:Patient Education How to access health informa tion online - Detail Indication:Nonsmoker Start:17-Jun-2020 Instruction Type:Patient Education Patient Instructions Indication:BMI 27.0-27.9,adult Start:17-Jun-2020 Instruction Type:Provider Instructions for Treatment How to access health informa tion online Indication:Nonsmoker Start:09-Jun-2020 Instruction Type:Patient Education How to access health informa tion online - Detail Indication:Nonsmoker Start:09-Jun-2020 Instruction Type:Patient Education Patient Instructions Indication:Nonsmoker Start:09-Jun-2020 Instruction Type:Provider Instructions for Treatment Chief Complaint and Reason for Visit Chief Complaint LEFT SIDE PAIN general illness, pain from head to stomach Chief Complaint general illness, domenic n from head to stomach ABD Chief Complaint general illness, domenic n from head to stomach ABD chest pain Chief Complaint ABD chest pain chest pain chest pain Chief Complaint ABD chest pain chest pain chest pain CP Chief Complaint ABD chest pain chest pain chest pain CP Amb Documentation cp CHEST PAIN Amb Documentation Reason for Visit Chest pain Essential hypertension Non-ischemic cardiomyopathy Chief Complaint 2 M FU STAT ABNORMAL LABS Reason for Visit Chest pain Dizziness Essential hypertension Non-ischemic cardiomyopathy Chief Complaint STAT ABNORMAL LABS LEFT KNEE Chief Complaint LEFT KNEE 4-5 MO F/U chest pain, dizziness Reason for Visit Dizziness Essential hypertension Non-ischemic cardiomyopathy Chief Complaint chest pain, dizzines s CP Chief Complaint Admit Date dizzy March 26, 2025 9:00 am Chief Complaint Admit Date dizzy March 26, 2025 9:00 am CHEST PAIN April 14, 2025 7:57 pm Family History No Family History Records Found Relationship Condition Age at Onset Recorded Date/T esmer mother Diabetes mellitus Unknown Cardiac disease Unknown Hypertension Unknown Kidney disorder Unknown father Hypertension Unknown Advance Directives Advance Directive Response Recorded Date/ Time Living Will No January 28, 2022 5:51am Power of Automotive Paint Technician No January 28 5:51am Documents on File Type Date Recorded Patient Credit Professional Expl anation Advance Directive(s) 01/08/2022 10:37 PM Advance Directive(s) 03/20/2021 1:43 AM Documents on File Type Date Recorded Patient Credit Professional Expl anation Advance Directive(s) 01/08/2022 10:37 PM Advance Directive(s) 03/20/2021 1:43 AM Advance Directive Response Recorded Date/ Time Living Will No May 05, 2022 10:59am Power of Automotive Paint Technician No May 05 10:59am Advance Directive Response Recorded Date/ Time Living Will No May 27 3:09pm Power of Automotive Paint Technician No May 27 022 3:09pm Advance Directive Response Recorded Date/ Time Living Will No June 22, 2022 3:55pm Power of Automotive Paint Technician No June 3:55pm Advance Directive Response Recorded Date/ Time Living Will No July 08 11:57am Power of Automotive Paint Technician No July 08, 2 022 11:57am Advance Directive Response Recorded Date/ Time Living Will No July 08 10:57am Power of Automotive Paint Technician No July 08 022 10:57am Advance Directive Response Recorded Date/ Time Living Will No February 08, 2023 9 :47pm Power of Automotive Paint Technician No February 08, 2023 9:47pm Advance Directive Response Recorded Date/ Time Living Will No April 14, 2023 10:57am Power of Automotive Paint Technician No April 14 10:57am Advance Directive Response Recorded Date/ Time Living Will No June 16, 2023 11:05am Power of Automotive Paint Technician No June 11:05am Advance Directive Response Recorded Date/ Time Living Will No September 23, 2 023 6:15pm Power of Automotive Paint Technician No September 23, 2023 6:15pm Advance Directive Response Recorded Date/ Time Do you have a Healthcare Power of Automotive Paint Technician? No March 26, 2025 9:05am Advance Directive Response Recorded Date/ Time Do you have a Healthcare Power of Automotive Paint Technician? No April 14, 2025 8:31pm Do you have a Healthcare Power of Automotive Paint Technician? No March 26, 2025 9:05am Reason for Referral Specialty Diagnoses / Procedures Referred By Contac t Referred To Contact Gastroenterology Diagnoses Other dysphagia Procedures CONSULT TO GASTROENTEROLOGY OFFICE/OUTPATIENT [facility] 60-74 MINUTES Awilda Garcia MD [address] [place] [address] Referral ID Status Reason Start Date Expiration Date Visits Requested Visits Authorized [id number] Pending Review PCP Requested Referral 12/20/2022 12/20/2023 1 1 Specialty Diagnoses / Procedures Referred By Contac t Referred To Contact XR IMAGING Diagnoses Neck pain Procedures XR CERV OTHER 4V AP/LAT/OBL RADEX SPINE CERVICAL 4 OR 5 VIEWS Awilda Garcia MD [address] [place] [address] Xr Imaging Referral ID Status Reason Start Date Expiration Date V isits Requested Visits Authorized [id number] Closed Auto-Generate d Referral 12/20/2022 01/19/2024 1 1 Specialty Diagnoses / Procedures Referred By Contac t Referred To Contact [facility] Diagnoses Neck pain Procedures CONSULT TO PHYSICAL THERAPY PHYSICAL THERAPY EVALUATION HIGH COMPLEX 45 MINS Awilda Garcia MD [address] [place] [address] [facility] [place] [address] Referral ID Status Reason Start Date Expiration Date Visits Requested Visits Authorized [id number] Pending Review Auto-Generat ed Referral 12/20/2022 12/20/2023 1 1 Specialty Diagnoses / Procedures Referred By Contac t Referred To Contact Cardiology Diagnoses Chest pain, unspecified type Procedures CONSULT TO CARDIOLOGY OFFICE/OUTPATIENT [facility] 60-74 MINUTES Awilda Garcia MD [address] [place] [address] Referral ID Status Reason Start Date Expiration Date Visits Requested Visits Authorized [id number] Pending Review PCP Requested Referral 12/20/2022 12/20/2023 1 1 Specialty Diagnoses / Procedures Referred By Contac t Referred To Contact XR IMAGING Diagnoses Left elbow pain Procedures XR ELBOW GENERAL 2V AP/LAT LEFT RADEX ELBOW 2 VIEWS Awilda Garcia MD [address] [place] [id number] Xr Imaging Referral ID Status Reason Start Date Expiration Date V isits Requested Visits Authorized [id number] Closed Auto-Generate d Referral 12/20/2022 01/19/2024 1 1 Specialty Diagnoses / Procedures Referred By Contac t Referred To Contact XR IMAGING Diagnoses Chronic left shoulder pain Procedures XR SHOULDER GENERAL 3V OR MORE AP/TRUE AP/OTHER LEFT RADEX SHOULDER COMPLETE MINIMUM 2 VIEWS Awilda Garcia MD [address] [place] [id number] Xr Imaging Referral ID Status Reason Start Date Expiration Date V isits Requested Visits Authorized [id number] Closed Auto-Generate d Referral 12/20/2022 01/19/2024 1 1 Specialty Diagnoses / Procedures Referred By Contac t Referred To Contact Orthopedics Diagnoses Chronic left shoulder pain Procedures CONSULT TO ORTHOPAEDICS OFFICE/OUTPATIENT [facility] 60-74 MINUTES Awilda Garcia MD [address] [place] [address] Referral ID Status Reason Start Date Expiration Date Visits Requested Visits Authorized [id number] Pending Review PCP Requested Referral 12/20/2022 12/20/2023 1 1 Specialty Diagnoses / Procedures Referred By Contac t Referred To Contact [facility] Diagnoses Neck pain Procedures PT REHAB FOLLOW UP ORDER THERAPEUTIC EXERCISES RE, EA 15 MIN. Genia Castañeda, PT [address] [place] [address] [facility] [address] [id number] [place] [address] Referral ID Status Reason Start Date Expiration Date Visits Requested Visits Authorized [id number] Pending Review PCP Requested Referral Auto-Generate d Referral 01/05/2023 04/05/2023 1 1 Specialty Diagnoses / Procedures Referred By Contac t Referred To Contact [facility] Diagnoses Neck pain Chronic left shoulder pain Procedures PT REHAB FOLLOW UP ORDER THERAPEUTIC EXERCISES RE, EA 15 MIN. Genia Castañeda, PT [address] [place] [address] [facility] [place] [address] [place] [address] Referral ID Status Reason Start Date Expiration Date Visits Requested Visits Authorized [id number] Pending Review PCP Requested Referral Auto-Generate d Referral 03/01/2023 05/30/2023 1 1 Specialty Diagnoses / Procedures Referred By Contac t Referred To Contact [facility] Diagnoses Mild intermittent asthma without complication Procedures CONSULT TO PULM/CRITICAL CARE OFFICE/OUTPATIENT [facility] MDM 60-74 MINUTES Prashanth Luna, [employer] 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 [address] [place] [address] Referral ID Status Reason Start Date Expiration Date Visits Requested Visits Authorized [id number] Pending Review PCP Requested Referral 04/02/2023 04/01/2024 1 1 Summary Purpose Additional Source Comments Goals (unrecognized section and content) Goals may be documented in a n alternate sectionGoals may be documented in an alternate sectionGoals may be documented in an alternate sectionGoals may be documented in an alternate sectionGoals may be documented in an alternate sectionGoals may be documented in an alternate sectionGoals may be documented in an alternate sectionGoals may be documented in an alternate sectionGoals may be documented in an alternate sectionGoals may be documented in an alternate sectionGoals may be documented in an alternate sectionGoals may be documented in an alternate section Source Comments (unrecognize d section and content) In the event this informatio n is protected by the Federal Confidentiality of Alcohol and Drug Abuse Patient Records regulations: The Federal rules restrict any use of the information to criminally investigate or prosecute any alcohol or drug abuse patient.[facility] MemorialIn the event this information is protected by the Federal Confidentiality of Alcohol and Drug Abuse Patient Records regulations: The Federal rules restrict any use of the information to criminally investigate or prosecute any alcohol or drug abuse patient.[facility] MemorialIn the event this information is protected by the Federal Confidentiality of Alcohol and Drug Abuse Patient Records regulations: The Federal rules restrict any use of the information to criminally investigate or prosecute any alcohol or drug abuse patient.[facility] MemorialIn the event this information is protected by the Federal Confidentiality of Alcohol and Drug Abuse Patient Records regulations: The Federal rules restrict any use of the information to criminally investigate or prosecute any alcohol or drug abuse patient.[facility] MemorialIn the event this information is protected by the Federal Confidentiality of Alcohol and Drug Abuse Patient Records regulations: The Federal rules restrict any use of the information to criminally investigate or prosecute any alcohol or drug abuse patient.[facility] MemorialIn the event this information is protected by the Federal Confidentiality of Alcohol and Drug Abuse Patient Records regulations: The Federal rules restrict any use of the information to criminally investigate or prosecute any alcohol or drug abuse patient.[facility] MemorialIn the event this information is protected by the Federal Confidentiality of Alcohol and Drug Abuse Patient Records regulations: The Federal rules restrict any use of the information to criminally investigate or prosecute any alcohol or drug abuse patient.[facility] MemorialIn the event this information is protected by the Federal Confidentiality of Alcohol and Drug Abuse Patient Records regulations: The Federal rules restrict any use of the information to criminally investigate or prosecute any alcohol or drug abuse patient.[facility] MemorialIn the event this information is protected by the Federal Confidentiality of Alcohol and Drug Abuse Patient Records regulations: The Federal rules restrict any use of the information to criminally investigate or prosecute any alcohol or drug abuse patient.[facility] MemorialIn the event this information is protected by the Federal Confidentiality of Alcohol and Drug Abuse Patient Records regulations: The Federal rules restrict any use of the information to criminally investigate or prosecute any alcohol or drug abuse patient.[facility] MemorialIn the event this information is protected by the Federal Confidentiality of Alcohol and Drug Abuse Patient Records regulations: The Federal rules restrict any use of the information to criminally investigate or prosecute any alcohol or drug abuse patient.[facility] MemorialIn the event this information is protected by the Federal Confidentiality of Alcohol and Drug Abuse Patient Records regulations: The Federal rules restrict any use of the information to criminally investigate or prosecute any alcohol or drug abuse patient.[facility] MemorialIn the event this information is protected by the Federal Confidentiality of Alcohol and Drug Abuse Patient Records regulations: The Federal rules restrict any use of the information to criminally investigate or prosecute any alcohol or drug abuse patient.[facility] MemorialIn the event this information is protected by the Federal Confidentiality of Alcohol and Drug Abuse Patient Records regulations: The Federal rules restrict any use of the information to criminally investigate or prosecute any alcohol or drug abuse patient.[facility] MemorialIn the event this information is protected by the Federal Confidentiality of Alcohol and Drug Abuse Patient Records regulations: The Federal rules restrict any use of the information to criminally investigate or prosecute any alcohol or drug abuse patient.[facility] MemorialIn the event this information is protected by the Federal Confidentiality of Alcohol and Drug Abuse Patient Records regulations: The Federal rules restrict any use of the information to criminally investigate or prosecute any alcohol or drug abuse patient.[facility] MemorialIn the event this information is protected by the Federal Confidentiality of Alcohol and Drug Abuse Patient Records regulations: The Federal rules restrict any use of the information to criminally investigate or prosecute any alcohol or drug abuse patient.[facility] MemorialIn the event this information is protected by the Federal Confidentiality of Alcohol and Drug Abuse Patient Records regulations: The Federal rules restrict any use of the information to criminally investigate or prosecute any alcohol or drug abuse patient.[facility] MemorialIn the event this information is protected by the Federal Confidentiality of Alcohol and Drug Abuse Patient Records regulations: The Federal rules restrict any use of the information to criminally investigate or prosecute any alcohol or drug abuse patient.[facility] MemorialIn the event this information is protected by the Federal Confidentiality of Alcohol and Drug Abuse Patient Records regulations: The Federal rules restrict any use of the information to criminally investigate or prosecute any alcohol or drug abuse patient.[facility] MemorialIn the event this information is protected by the Federal Confidentiality of Alcohol and Drug Abuse Patient Records regulations: The Federal rules restrict any use of the information to criminally investigate or prosecute any alcohol or drug abuse patient.[facility] MemorialIn the event this information is protected by the Federal Confidentiality of Alcohol and Drug Abuse Patient Records regulations: The Federal rules restrict any use of the information to criminally investigate or prosecute any alcohol or drug abuse patient.[facility] MemorialIn the event this information is protected by the Federal Confidentiality of Alcohol and Drug Abuse Patient Records regulations: The Federal rules restrict any use of the information to criminally investigate or prosecute any alcohol or drug abuse patient.[facility] MemorialIn the event this information is protected by the Federal Confidentiality of Alcohol and Drug Abuse Patient Records regulations: The Federal rules restrict any use of the information to criminally investigate or prosecute any alcohol or drug abuse patient.[facility] MemorialIn the event this information is protected by the Federal Confidentiality of Alcohol and Drug Abuse Patient Records regulations: The Federal rules restrict any use of the information to criminally investigate or prosecute any alcohol or drug abuse patient.[facility] MemorialIn the event this information is protected by the Federal Confidentiality of Alcohol and Drug Abuse Patient Records regulations: The Federal rules restrict any use of the information to criminally investigate or prosecute any alcohol or drug abuse patient.[facility] MemorialIn the event this information is protected by the Federal Confidentiality of Alcohol and Drug Abuse Patient Records regulations: The Federal rules restrict any use of the information to criminally investigate or prosecute any alcohol or drug abuse patient.[facility] MemorialIn the event this information is protected by the Federal Confidentiality of Alcohol and Drug Abuse Patient Records regulations: The Federal rules restrict any use of the information to criminally investigate or prosecute any alcohol or drug abuse patient.[facility] MemorialIn the event this information is protected by the Federal Confidentiality of Alcohol and Drug Abuse Patient Records regulations: The Federal rules restrict any use of the information to criminally investigate or prosecute any alcohol or drug abuse patient.[facility] MemorialIn the event this information is protected by the Federal Confidentiality of Alcohol and Drug Abuse Patient Records regulations: The Federal rules restrict any use of the information to criminally investigate or prosecute any alcohol or drug abuse patient.[facility] MemorialIn the event this information is protected by the Federal Confidentiality of Alcohol and Drug Abuse Patient Records regulations: The Federal rules restrict any use of the information to criminally investigate or prosecute any alcohol or drug abuse patient.[facility] MemorialIn the event this information is protected by the Federal Confidentiality of Alcohol and Drug Abuse Patient Records regulations: The Federal rules restrict any use of the information to criminally investigate or prosecute any alcohol or drug abuse patient.[facility] MemorialIn the event this information is protected by the Federal Confidentiality of Alcohol and Drug Abuse Patient Records regulations: The Federal rules restrict any use of the information to criminally investigate or prosecute any alcohol or drug abuse patient.[facility] MemorialIn the event this information is protected by the Federal Confidentiality of Alcohol and Drug Abuse Patient Records regulations: The Federal rules restrict any use of the information to criminally investigate or prosecute any alcohol or drug abuse patient.[facility] MemorialIn the event this information is protected by the Federal Confidentiality of Alcohol and Drug Abuse Patient Records regulations: The Federal rules restrict any use of the information to criminally investigate or prosecute any alcohol or drug abuse patient.[facility] MemorialIn the event this information is protected by the Federal Confidentiality of Alcohol and Drug Abuse Patient Records regulations: The Federal rules restrict any use of the information to criminally investigate or prosecute any alcohol or drug abuse patient.[facility] MemorialIn the event this information is protected by the Federal Confidentiality of Alcohol and Drug Abuse Patient Records regulations: The Federal rules restrict any use of the information to criminally investigate or prosecute any alcohol or drug abuse patient.[facility] MemorialIn the event this information is protected by the Federal Confidentiality of Alcohol and Drug Abuse Patient Records regulations: The Federal rules restrict any use of the information to criminally investigate or prosecute any alcohol or drug abuse patient.[facility] MemorialIn the event this information is protected by the Federal Confidentiality of Alcohol and Drug Abuse Patient Records regulations: The Federal rules restrict any use of the information to criminally investigate or prosecute any alcohol or drug abuse patient.[facility] MemorialIn the event this information is protected by the Federal Confidentiality of Alcohol and Drug Abuse Patient Records regulations: The Federal rules restrict any use of the information to criminally investigate or prosecute any alcohol or drug abuse patient.[facility] MemorialIn the event this information is protected by the Federal Confidentiality of Alcohol and Drug Abuse Patient Records regulations: The Federal rules restrict any use of the information to criminally investigate or prosecute any alcohol or drug abuse patient.[facility] MemorialIn the event this information is protected by the Federal Confidentiality of Alcohol and Drug Abuse Patient Records regulations: The Federal rules restrict any use of the information to criminally investigate or prosecute any alcohol or drug abuse patient.[facility] MemorialIn the event this information is protected by the Federal Confidentiality of Alcohol and Drug Abuse Patient Records regulations: The Federal rules restrict any use of the information to criminally investigate or prosecute any alcohol or drug abuse patient.[facility] MemorialIn the event this information is protected by the Federal Confidentiality of Alcohol and Drug Abuse Patient Records regulations: The Federal rules restrict any use of the information to criminally investigate or prosecute any alcohol or drug abuse patient.[facility] MemorialIn the event this information is protected by the Federal Confidentiality of Alcohol and Drug Abuse Patient Records regulations: The Federal rules restrict any use of the information to criminally investigate or prosecute any alcohol or drug abuse patient.[facility] MemorialIn the event this information is protected by the Federal Confidentiality of Alcohol and Drug Abuse Patient Records regulations: The Federal rules restrict any use of the information to criminally investigate or prosecute any alcohol or drug abuse patient.[facility] MemorialIn the event this information is protected by the Federal Confidentiality of Alcohol and Drug Abuse Patient Records regulations: The Federal rules restrict any use of the information to criminally investigate or prosecute any alcohol or drug abuse patient.[facility] MemorialIn the event this information is protected by the Federal Confidentiality of Alcohol and Drug Abuse Patient Records regulations: The Federal rules restrict any use of the information to criminally investigate or prosecute any alcohol or drug abuse patient.[facility] MemorialIn the event this information is protected by the Federal Confidentiality of Alcohol and Drug Abuse Patient Records regulations: The Federal rules restrict any use of the information to criminally investigate or prosecute any alcohol or drug abuse patient.[facility] MemorialIn the event this information is protected by the Federal Confidentiality of Alcohol and Drug Abuse Patient Records regulations: The Federal rules restrict any use of the information to criminally investigate or prosecute any alcohol or drug abuse patient.[facility] MemorialIn the event this information is protected by the Federal Confidentiality of Alcohol and Drug Abuse Patient Records regulations: The Federal rules restrict any use of the information to criminally investigate or prosecute any alcohol or drug abuse patient.[facility] MemorialIn the event this information is protected by the Federal Confidentiality of Alcohol and Drug Abuse Patient Records regulations: The Federal rules restrict any use of the information to criminally investigate or prosecute any alcohol or drug abuse patient.[facility] MemorialIn the event this information is protected by the Federal Confidentiality of Alcohol and Drug Abuse Patient Records regulations: The Federal rules restrict any use of the information to criminally investigate or prosecute any alcohol or drug abuse patient.[facility] MemorialIn the event this information is protected by the Federal Confidentiality of Alcohol and Drug Abuse Patient Records regulations: The Federal rules restrict any use of the information to criminally investigate or prosecute any alcohol or drug abuse patient.[facility] MemorialIn the event this information is protected by the Federal Confidentiality of Alcohol and Drug Abuse Patient Records regulations: The Federal rules restrict any use of the information to criminally investigate or prosecute any alcohol or drug abuse patient.[facility] MemorialIn the event this information is protected by the Federal Confidentiality of Alcohol and Drug Abuse Patient Records regulations: The Federal rules restrict any use of the information to criminally investigate or prosecute any alcohol or drug abuse patient.[facility] MemorialIn the event this information is protected by the Federal Confidentiality of Alcohol and Drug Abuse Patient Records regulations: The Federal rules restrict any use of the information to criminally investigate or prosecute any alcohol or drug abuse patient.[facility] MemorialIn the event this information is protected by the Federal Confidentiality of Alcohol and Drug Abuse Patient Records regulations: The Federal rules restrict any use of the information to criminally investigate or prosecute any alcohol or drug abuse patient.[facility] MemorialIn the event this information is protected by the Federal Confidentiality of Alcohol and Drug Abuse Patient Records regulations: The Federal rules restrict any use of the information to criminally investigate or prosecute any alcohol or drug abuse patient.[facility] Reason for Visit (unrecogniz ed section and content) Reason Comments PT Progress Note Specialty Diagnoses / Procedures Referred By Contac t Referred To Contact [facility] Diagnoses Neck pain Procedures CONSULT TO PHYSICAL THERAPY PHYSICAL THERAPY EVALUATION [facility] 45 MINS Awilda Garcia MD [address] [place] [address] [facility] [place] [address] Referral ID Status Reason Start Date Expiration Date Visits Requested Visits Authorized [id number] Authorized Auto-Generat ed Referral 10/02/2022 10/01/2023 20 20 Reason Comments Establish Care Pain, Back Lower back pain radi ating to the belly Specialty Diagnoses / Procedures Referred By Contac t Referred To Contact Chiropractor / WELLNESS Diagnoses Chiropractor Procedures [facility]IROPRACTOR Miguel Angel, [place] [address] Referral ID Status Reason Start Date Expiration Date V isits Requested Visits Authorized [id number] Authorized 04/12/2022 10/01/2022 99 99 Reason Comments Neck Pain Left sided neck pain Pain (Shoulder Pain) Left shoulder Abdominal Pain Has ruptured esophag us and it is getting hard to eat- pressure and digestive issues, holding the food Reason Comments Radio Gen RMP Reason Comments PT Eval Patient Education Reason Comments New Pain Specialty Diagnoses / Procedures Referred By Contac t Referred To Contact Orthopedics Diagnoses Chronic left shoulder pain Procedures CONSULT TO ORTHOPAEDICS OFFICE/OUTPATIENT [facility] MDM 60-74 MINUTES Awilda Garcia MD [address] [place] [address] Referral ID Status Reason Start Date Expiration Date Visits Requested Visits Authorized [id number] Pending Review PCP Requested Referral 12/20/2022 12/20/2023 1 1 Reason Comments Physical Therapy Specialty Diagnoses / Procedures Referred By Contac t Referred To Contact [facility] Diagnoses Neck pain Procedures CONSULT TO PHYSICAL THERAPY PHYSICAL THERAPY [facility] 45 MINS Awilda Garcia MD [address] [place] [address] [facility] [address] [address] Reason Comments Blood Pressure Chest Pain Chest cramps x4-5 mo nths, left side and at times down left arm causing numbness in fingers 2-3x daily Dizziness Dizzy spells x3wks. Falling over a bit Reason Comments Med Change Request Reason Comments Results Reason Comments Appointment Reason Comments Orders Reason Comments Referral Request Reason Comments No Show Attempted to call pa marknt regarding 3 no shows and policy to cancel future appointments. Phone number does not work Reason Comments Consult Gallstones referral Reason Comments Throat Problem Specialty Diagnoses / Procedures Referred By Contac t Referred To Contact Gastroenterology Diagnoses Other dysphagia Procedures CONSULT TO GASTROENTEROLOGY OFFICE/OUTPATIENT [facility] 60-74 MINUTES Awilda Garcia MD [address] [place] [address] Referral ID Status Reason Start Date Expiration Date Visits Requested Visits Authorized [id number] Pending Review PCP Requested Referral 12/20/2022 12/20/2023 1 1 Reason Comments Spirometry Specialty Diagnoses / Procedures Referred By Contac t Referred To Contact [facility] Diagnoses Persistent asthma with status asthmaticus, unspecified asthma severity Procedures SPIROMETRY - BASELINE AND POST DILATOR BRNCDILAT RSPSE SPMTRY PRE&POST-BRNCDILAT ADMN Awilda Garcia MD [address] [place] [address] [facility] [address] [place] [id number] Referral ID Status Reason Start Date Expiration Date V isits Requested Visits Authorized [id number] Closed Auto-Generate d Referral 04/03/2023 05/02/2024 1 1 Reason Comments Shortness of Breath Specialty Diagnoses / Procedures Referred By Contac t Referred To Contact Pulmonary and Critical Care Medicine / PULMONARY MEDICINE Diagnoses Mild intermittent asthma without complication Procedures CONSULT TO PULM/CRITICAL CARE OFFICE/OUTPATIENT [facility] 60-74 MINUTES Prashanth Luna APRN.AUTOMATIC SHIRRING MACHINE OPERATOR [address] [place] [address] [facility] [place] [address] [address] Referral ID Status Reason Start Date Expiration Date V isits Requested Visits Authorized [id number] Closed PCP Requested Referral 05/01/2023 10/01/2023 1 1 Reason Comments Abdominal Pain [facility] in [place] told him he needs his gallbladder out. Breast Problem Breathing not gettin g any better hand pain Pain in fingers Reason Comments New Patient Specialty Diagnoses / Procedures Referred By Contac t Referred To Contact Neurology Diagnoses Syncope, unspecified syncope type Procedures CONSULT TO NEUROLOGY OFFICE/OUTPATIENT [facility] 60-74 MINUTES Awilda Garcia MD [address] [place] [address] [address] [address] Referral ID Status Reason Start Date Expiration Date V isits Requested Visits Authorized [id number] Closed PCP Requested Referral 10/11/2023 10/01/2024 1 1 Specialty Diagnoses / Procedures Referred By Contac t Referred To Contact [facility] Diagnoses Shortness of breath Procedures SPIROMETRY WITH DILATOR IF OBSTRUCTED BRNCDILAT RSPSE SPMTRY PRE&POST-BRNCDILAT Sabrina Sung MD [address] [place] [address] [facility] [address] [place] [address] Referral ID Status Reason Start Date Expiration Date V isits Requested Visits Authorized [id number] Closed Auto-Generate d Referral 08/30/2023 09/26/2024 1 1 Reason Comments New Reason Comments Insurance Authorization Reason Comments Received Outside Medical Records Reason Onset Date Comments Refill Request 11/08/2023 Reason Comments Blood Pressure Review ECG result. Reason Onset Date Comments Refill Request 04/24/2024 Reason Comments Refill Request Reason Onset Date Comments Refill Request 06/27/2024 Reason Comments Established Patient Reason Comments Procedure Heart cath Reason Comments Letter Letter from Dr. Lamont [place] Reason Onset Date Comments Refill Request 08/21/2024 Erroneous encounter-disregard 08/21/2024 Reason Comments Procedure Rescheduling heart c ath Reason Comments Follow Up Reason Onset Date Comments Refill Request 03/03/2025 Reason Onset Date Comments Refill Request 03/21/2025 Reason Comments Follow Up Bilateral legs pain. Advised to tell pcp that he was 2 pints of blood low in the [place] [facility] Reason Onset Date Comments Refill Request 05/15/2025 Care Teams (unrecognized sec tion and content) Rn Renal Relationship Specialty Start Date End Date Awilda Garcia MD [address] [place] [address] PCP - General Internal Medicine 12/15/22 Rn Renal Relationship Specialty Start Date End Date Awilda Garcia MD [address] [place] [address] PCP - General Internal Medicine 12/15/22 Rn Renal Relationship Specialty Start Date End Date Awilda Garcia MD [address] [place] [address] PCP - General Internal Medicine 12/15/22 Rn Renal Relationship Specialty Start Date End Date Awilda Garcia MD [address] [place] [address] PCP - General Internal Medicine 12/15/22 Rn Renal Relationship Specialty Start Date End Date Awilda Garcia MD [address] [place] [address] PCP - General Internal Medicine 12/15/22 Rn Renal Relationship Specialty Start Date End Date Awilda Garcia MD [address] [place] [address] PCP - General Internal Medicine 12/15/22 Rn Renal Relationship Specialty Start Date End Date Awilda Garcia MD [address] [place] [address] PCP - General Internal Medicine 12/15/22 Rn Renal Relationship Specialty Start Date End Date Awilda Garcia MD [address] [place] [address] PCP - General Internal Medicine 12/15/22 Team Status: Active Member Role Status Dates No Primary Care Physician Family Provider Active Shreya Cat SURGICAL SALES REPRESENTATIVE-C Primary Care Provider Active Team Status: Inactive Member Role Status Dates Shreya Cat NP-Margarita Primary Care Provider, Referring Provider Active Brinda Escobedo NP, SURGICAL SALES REPRESENTATIVE-C Attending Provider Active Team Status: Inactive Member Role Status Dates Shreya Cat NP-C Primary Care Provi braeden, Attending Provider, Referring Provider Active Team Status: Inactive Member Role Status Dates Shreya Cat NP-C Primary Care Provider Active Dr. Calixto Mccullough MD Emergency Provider Active Rn Renal Relationship Specialty Start Date End Date Awilda Garcia MD [address] [place] [address] PCP - General Internal Medicine 12/15/22 Rn Renal Relationship Specialty Start Date End Date Awilda Garcia MD [address] [place] [address] PCP - General Internal Medicine 12/15/22 Rn Renal Relationship Specialty Start Date End Date Awilda Garcia MD [address] [place] [address] PCP - General Internal Medicine 12/15/22 Rn Renal Relationship Specialty Start Date End Date Awilda Garcia MD [address] [place] [address] PCP - General Internal Medicine 12/15/22 Rn Renal Relationship Specialty Start Date End Date Awilda Garcia MD [address] [place] [address] PCP - General Internal Medicine 12/15/22 Rn Renal Relationship Specialty Start Date End Date Awilda Garcia MD [address] [place] [address] PCP - General Internal Medicine 12/15/22 Rn Renal Relationship Specialty Start Date End Date Awilda Garcia MD [address] [place] [address] PCP - General Internal Medicine 12/15/22 Team Status: Inactive Member Role Status Dates Shreya Cat SURGICAL SALES REPRESENTATIVE-C Primary Care Provider Active Dr. Calixto Mccullough MD Attending Provider, Emergency Provi braeden Active Team Status: Inactive Member Role Status Dates Shreya Cat SURGICAL SALES REPRESENTATIVE-C Primary Care Provider Active Dr. Popeye Kramer , DO Emergency Provider Active Rn Renal Relationship Specialty Start Date End Date Awilda Garcia MD [address] [place] [address] PCP - General Internal Medicine 12/15/22 Rn Renal Relationship Specialty Start Date End Date Awilda Garcia MD [address] [place] [address] PCP - General Internal Medicine 12/15/22 Rn Renal Relationship Specialty Start Date End Date Awilda Garcia MD [address] [place] [address] PCP - General Internal Medicine 12/15/22 Rn Renal Relationship Specialty Start Date End Date Awilda Garcia MD [address] [place] [address] [place] [address] PCP - General Internal Medicine 12/15/22 Rn Renal Relationship Specialty Start Date End Date Awilda Garcia MD [address] [place] [address] PCP - General Internal Medicine 12/15/22 Rn Renal Relationship Specialty Start Date End Date Awilda Garcia MD [address] [place] [address] PCP - General Internal Medicine 12/15/22 Team Status: Inactive Member Role Status Dates ROBINA Anglin Primary Care Provider Active Dr. Popeye Kramer DO Attending Provider, Emergency P jennifer Active Team Status: Inactive Member Role Status Dates ROBINA Anglin Primary Care Provider Active Dr. Ant Alvarez , Emergency Provider Active Rn Renal Relationship Specialty Start Date End Date Awilda Garcia MD [address] [place] [address] PCP - General Internal Medicine 12/15/22 Rn Renal Relationship Specialty Start Date End Date Awilda Garcia MD [address] [place] [address] PCP - General Internal Medicine 12/15/22 Rn Renal Relationship Specialty Start Date End Date Awilda Garcia MD [address] [place] [address] PCP - General Internal Medicine 12/15/22 Team Status: Inactive Member Role Status Dates ROBINA Anglin Primary Care Provider Active Dr. Ant Alvarez DO Attending Provider, Emergency Pro vider Active Team Status: Inactive Member Role Status Dates Shreya Emory , SURGICAL SALES REPRESENTATIVE-C Primary Care Provider Active Dr. Nathanael Copeland , DO Emergency Provider Active Rn Renal Relationship Specialty Start Date End Date Awilda Garcia MD [address] [place] [address], [place] [address] PCP - General Internal Medicine 12/15/22 Rn Renal Relationship Specialty Start Date End Date Awilda Garcia MD [address] [place] [address], [place] [address] PCP - General Internal Medicine 12/15/22 Rn Renal Relationship Specialty Start Date End Date Awilda Garcia MD [address] [place] [address] PCP - General Internal Medicine 12/15/22 Rn Renal Relationship Specialty Start Date End Date Awilda Garcia MD [address] [place] [address] PCP - General Internal Medicine 12/15/22 Rn Renal Relationship Specialty Start Date End Date Awilda Garcia MD [address] [place] [address], [place] [address] PCP - General Internal Medicine 12/15/22 Rn Renal Relationship Specialty Start Date End Date Awilda Garcia MD [address] [place] [address] PCP - General Internal Medicine 12/15/22 Rn Renal Relationship Specialty Start Date End Date Awilda Garcia MD [address] [place] [address] PCP - General Internal Medicine 12/15/22 Rn Renal Relationship Specialty Start Date End Date Awilda Garcia MD [address] [place] [address] PCP - General Internal Medicine 12/15/22 Rn Renal Relationship Specialty Start Date End Date Awilda Garcia MD [address] [place] [address] PCP - General Internal Medicine 12/15/22 Rn Renal Relationship Specialty Start Date End Date Awilda Garcia MD [address] [place] [address] PCP - General Internal Medicine 12/15/22 Rn Renal Relationship Specialty Start Date End Date Awilda Garcia MD [address] [place] [address] PCP - General Internal Medicine 12/15/22 Rn Renal Relationship Specialty Start Date End Date Awilda Garcia MD [address] [place] [address] PCP - General Internal Medicine 12/15/22 Rn Renal Relationship Specialty Start Date End Date Awilda Garcia MD [address] [place] [address] PCP - General Internal Medicine 12/15/22 Naila Weber PA-C [address] [place] [address] Tree And Shrub Technician Internal Medicine 09/08/24 Prashanth Luna, WORM 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 [address] [place] [address] Tree And Shrub Technician [facility] 09/08/24 Rn Renal Relationship Specialty Start Date End Date Awilda Garcia MD [address] [place] [address] PCP - General Internal Medicine 12/15/22 Prashanth Luna, WORM 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 [address] [place] [address] Tree And Shrub Technician [facility] 09/08/24 Rn Renal Relationship Specialty Start Date End Date Awilda Garcia MD [address] [place] [address] PCP - General Internal Medicine 12/15/22 Prashanth Luna, WORM 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 [address] [place] [address] Tree And Shrub Technician [facility] 09/08/24 Rn Renal Relationship Specialty Start Date End Date Awilda Garcia MD [address] [place] [id number] PCP - General Internal Medicine 12/15/22 Prashanth Luna, WORM 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 [address] [place] [address] Tree And Shrub Technician [facility] 09/08/24 Rn Renal Relationship Specialty Start Date End Date Awilda Garcia MD [address] [place] [id number] PCP - General Internal Medicine 12/15/22 Prashanth Luna, WORM 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 [address] [place] [address] Tree And Shrub Technician [facility] 09/08/24 Rn Renal Relationship Specialty Start Date End Date Awilda Garcia MD [address] [place] [address] PCP - General Internal Medicine 12/15/22 Prashanth Luna WORM 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 [address] [place] [address] Tree And Shrub Technician [facility] 09/08/24 Team Status: Active Member Role Status Dates Shreya Cat SURGICAL SALES REPRESENTATIVE-C Primary Care Provider Active Team Status: Inactive Member Role Status Dates Shreya Cat SURGICAL SALES REPRESENTATIVE-C Primary Care Provider Active Start: March 26, 2025 End: March 26, 2025 Dr. Gavino Jeffery DO Emergency Provider Active Start: March 26, 2025 End: March 26, 2025 Team Status: Active Member Role/Relationship Status Dates Shreya aCt SURGICAL SALES REPRESENTATIVE-C Primary Care Provider Active Team Status: Inactive Member Role/Relationship Status Dates Shreya Cat SURGICAL SALES REPRESENTATIVE-C Primary Care Provider Active Start: March 26, 2025 End: March 26, 2025 Dr. Gavino Jeffery DO Attending Provider Active Start: March 26, 2025 End: March 26, 2025 Dr. Gavino Jeffery DO Emergency Provider Active Start: March 26, 2025 End: March 26, 2025 Team Status: Inactive Member Role/Relationship Status Dates Shreya Cat SURGICAL SALES REPRESENTATIVE-C Primary Care Provider Active Start: April 14, 2025 End: April 14, 2025 Dr. Harrison Mandujano DO Emergency Provider Active Start: April 14, 2025 End: April 14, 2025 Rn Renal Relationship Specialty Start Date End Date Awilda Garcia MD [address] [place] [address] PCP - General Internal Medicine 12/15/22 Prashanth Luna WORM 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 [address] [place] [address] [facility] Rn Renal Relationship Specialty Start Date End Date Awilda Garcia MD [address] [place] [id number] PCP - General Internal Medicine 12/15/22 Prashanth Luna, WORM 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 [address] [place] [address] [facility] Rn Renal Relationship Specialty Start Date End Date Awilda Garcia MD [address] [place] [address] PCP - General Internal Medicine 12/15/22 Prashanth Luna, WORM 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 [address] [place] [address] [facility] 09/08/24 (unrecognized sect ion and content) No Status Records FoundNo Status Records FoundNo Status Records FoundNo Status Records FoundNo Status Records Found INFORMATION SOURCE (unrecogn ized section and content) DATE CREATED AUTHOR 02/09/2023 [facility] DATE CREATED AUTHOR AUTHOR'S ORGANIZ ATION 12/02/2023 [facility] DATE CREATED AUTHOR AUTHOR'S ORGANIZ ATION 10/23/2024 [facility] DATE CREATED AUTHOR AUTHOR'S ORGANIZ ATION 04/22/2025 [facility] DATE CREATED AUTHOR AUTHOR'S ORGANIZ ATION 05/11/2025 [facility] FOR RECORDS PERTAINING TO PATIENTS WHO ARE OR HAVE BEEN ENROLLED IN A CHEMICAL DEPENDENCY/SUBSTANCEABUSE PROGRAM, SOME INFORMATION MAY BE OMITTED. This clinical summary was aggregated from multiple sources. Caution should be exercised in using it in the provision of clinical care. This summary normalizes information from multiple sources, and as a consequence, information in this document may materially change the coding, format and clinical context of patient data. In addition, data may be omitted in some cases. CLINICAL DECISIONS SHOULD BE BASED ON THE PRIMARY CLINICAL RECORDS. [employer] [facility] provides no warranty or guarantee of the accuracy or completeness of information in this document.
[2025-06-21 18:56] LABS: D-Dimer Quantitative (DVT/PE) 1.58 FEU/ug/m (0.27-0.49)
[2025-06-21 18:59] LABS: Anion Gap 11 (5-15); BUN 14 mg/dL (4-19); BUN/Creat Ratio 13.9 RATIO (10-20); Calcium,Total 9.2 mg/dL (7.6-11.0); Carbon Dioxide 20.9 mmol/L (21.0-32.0); Chloride 108 mmol/L (98-108); Estimated Creatinine Clearance 72.65 ml/min (50-250); Glucose 121 mg/dL (70-99); Potassium 3.7 mmol/L (3.3-5.1)
[2025-06-21 19:01] LABS: Troponin T High Sensitivity 7 ng/L (<=22)
--- NOTE | 2025-06-21 19:05 | CT_ITS ---
PROCEDURE: CTA CHEST W/WO CONTRAST 06/21/2025 REASON FOR EXAM: CHEST PAIN THROUGH THE BACK ELEVATED D-DIMER R/ TECHNIQUE: Procedure Code: [id number] Modality: CT Procedure: CTA CHEST W/WO CONTRAST Multiplanar Sagittal and Coronal images were obtained. CONTRAST: Please see CT VOLUME: Please see CT mL One or more dose reduction techniques were used (e.g., Automated exposure control, adjustment of the mA and/or kV according to patient size, use of iterative reconstruction technique). RADIATION DOSE SUMMARY: CTDlvol: Please see CT mGy DLP: 524.05 mGycm COMPARISON: Same day chest x-ray FINDINGS: Pulmonary arteries: Diameter of the main pulmonary trunk at 2.8 cm is within normal range. Enhancement within the central pulmonary arteries through the level of the segmental branches is preserved without evidence of central acute appearing occlusive pulmonary embolus. Evaluation of some smaller peripheral branches distal to the segmental levels is nondiagnostic secondary to motion related misregistration artifact and heterogeneous diminished peripheral contrast bolus. Maximal intensity of bolus on this study is left heart and systemic arterial, consistent with suboptimal bolus timing. Heart: The heart is not enlarged. The left atrium is effaced by a large hiatal hernia. This could affect cardiac function. Ventricular ratio is maintained. No cardiac chamber filling defect is seen to suggest cardiac thrombus. No significant pericardial effusion. Evaluation of coronary arteries is limited by motion artifact. No dense appearing coronary calcification seen. Aorta: The aortic root is not dilated. No thoracic aortic aneurysm or dissection. There is slight uncoiling of the aortic arch. No hemodynamically significant aortic stenosis. Three-vessel branch pattern noted off the aortic arch. Visualized proximal great vessels within the superior mediastinum appear patent. Mediastinum: No mediastinal hematoma. No mediastinal soft tissue emphysema. Lymph nodes: No mediastinal or hilar lymphadenopathy by size criteria. Esophagus: No periesophageal inflammation. There is a fat containing 14 cm hiatal hernia. The gastric fundus is distended with an air-fluid level up to 10.3 cm in diameter with the gastroesophageal junction below the level of the upper fundus suggesting a periesophageal fundal hernia possibly with slight obstruction or partial volvulus at the esophageal hiatus. Clinical correlation with symptoms. The stomach below the diaphragm is moderately distended with an air-fluid level. This could be correlated for recent vigorous ingestion versus mild gastroparesis. If there are symptoms related to the esophagus/stomach, consider endoscopy or esophagram/upper GI. Thyroid: Slight heterogeneity of the visualized left thyroid lobe of indeterminate significance. Lungs: The lungs are symmetrically expanded. Bibasal subpleural reticular opacities noted [id number]-right likely due to atelectasis and/or pulmonary parenchymal fibrotic changes. There is no consolidation. Indeterminate 6 mm noncalcified left lower lobe pulmonary nodule (image 42 axial series) is of uncertain significance. Malignancy can not be ruled out. Clinical correlation with risk factors. If there is no history of malignancy, consider Fleischner society follow-up guidelines at six-months. Pleura: No pleural effusion. There is no pneumothorax. Upper abdomen: No free air or free fluid within the visualized upper most abdomen. Body wall: No body wall hematoma or soft tissue emphysema. Osseous: Moderately severe degenerative changes of the spine and bony thorax. No acute displaced fracture seen. CT/CTA Chest W/WO Contrast IMPRESSION: No evidence for large central pulmonary embolus. Limitations discussed above. - Large complex hiatal hernia. Clinical correlation for partial obstruction or partial volvulus of periesophag eal herniation of the fundus as discussed above, versus gastroparesis. - Indeterminate pulmonary nodule. Nonemergent recommendations discussed above. - Other findings discussed above in detail. Reading Location: [id number]
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
[2025-06-21 21:01] LABS: Troponin T High Sens 2 HR 9 ng/L (<=22)
[2025-06-22] VITALS: BP 119/84; PULSE 71; RESP 16; O2SAT 98
[2025-06-22 00:02] VITALS: BP 119/84; PULSE 71; RESP 16; TEMP 36.7; O2SAT 98
== END 2025-06-22 00:16 | disposition home or self-care (01) ==
PROVIDERS: Emergency Provider Emergency Medicine; Visit Provider Emergency Medicine
DX: M54.6 Pain in thoracic spine (principal); K44.9 Diaphragmatic hernia without obstruction or gangrene; I10 Essential (primary) hypertension; R91.1 Solitary pulmonary nodule; R00.0 Tachycardia, unspecified
CPT/HCPCS: 71046; 71275; 80048; 84484; 85025; 85379; 93005; 99285; Q9967; A4216

== ENCOUNTER 2025-07-17 04:43 | Emergency (ER) | payer MEDICARE, MEDICAID, SELFPAY ==
[2025-07-17 04:43] VITALS: BP 126/81; PULSE 93; RESP 18; TEMP 36.4; O2SAT 100; BMI 29.7
--- NOTE | 2025-07-17 05:00 | RAD_ITS ---
PROCEDURE: FOOT MIN 3 VIEWS 07/17/2025 REASON FOR EXAM: 1ST AND 2ND TOE PAIN TECHNIQUE: Procedure Code: RADFO Modality: DX Procedure: FOOT MIN 3 VIEWS Laterality: Left. COMPARISON: None. FINDINGS: Acute oblique mildly displaced fracture in the base of the distal phalanx of the big toe with overlying soft tissue edema and swelling. Detached bone fragment adjacent to the base of the distal phalanx of the 2nd toe. Please correlate with focal tenderness at this level to exclude an acute traumatic pathology. Calcaneal spur formation. Hallux valgus deformity. Hammertoes deformities of the 2nd through 5th toes. Mild osteopenia of the visualized bones. Degenerative joint disease. No dislocation is seen. No lytic or blastic bone lesion is noted. RAD/Foot min 3 Views IMPRESSION: Acute oblique mildly displaced fracture in the base of the distal phalanx of th e big toe with overlying soft tissue edema and swelling. Detached bone fragment adjacent to the base of the distal phalanx of the 2nd to e. Please correlate with focal tenderness at this level to exclude an acute traumatic pathology. Calcaneal spur formation. Hallux valgus deformity. Hammertoes deformities of the 2nd through 5th toes. Mild osteopenia of the visualized bones. Reading Location: [facility]
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
--- OUTSIDE RECORDS SUMMARY | 2025-07-17 05:22 | XMS RPT_ITS | CCD ---
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 24 -2.14 FIF50 0.60 FEF50/FIF50 1.51 90-100 FIVC 0.38 YBZ90-03 0.79 1.24 2.60 4.44 30 -2.40 ExpiredTime 3.63 TimeToFEFMax 0.74 SAI 0.32 VolExtrap% 16 LUNG DIFFUSION DLCOunc 14.04 18.11 24.25 31.52 57 -2.93 DLCOStdPB 13.80 18.11 24.25 31.52 56 -3.01 VA 3.53 4.59 5.68 6.85 62 -3.39 Kco 3.90 3.24 4.30 5.45 90 -0.60 Comments: Medications and Allergies were reviewed for possible drug interactions per policy. No contraindications or sensitivities were noted. Meds taken: /hours before testing. The two largest FVCs were repeatable. The two largest FEV1s were repeatable. Extrapolated volume greater than ATS/ERS allows; FEV1 may not be valid. Time to Peak Flow greater than ATS/ERS standard, FEV1 may not be valid. Best test reported despite difficult testing session. the 2 best DLCO measurements were not repeatable. 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 No contraindications or sensitivities were noted. Meds taken: /hours before testing. The two largest FVCs were repeatable. The two largest FEV1s were repeatable. Extrapolated volume greater than ATS/ERS allows; FEV1 may not be valid. Time to Peak Flow greater than ATS/ERS standard, FEV1 may not be valid. Best test reported despite difficult testing session. the 2 best DLCO measurements were not repeatable. IMPRESSION: Spirometry indicates obstruction. The severity of obstruction cannot be graded due to the reduced FVC. The reduced FVC may be due to obstruction, however, concomitant restriction cannot be excluded, recommend lung volumes for definitive determination. Testing may not be valid. See RT comments above and flow volume loops. The diffusing capacity (uncorrected for hemoglobin) is reduced. The kCO (DLCO/VA) reflects a normal transfer/diffusion of CO from the alveolar regions to the blood. Clinical correlation recommended. Electronically Signed On 07-14-2025 16:17:23 EDT by Sabrina Reddy MD ID: [id number] Name: CASH MICHEL Race: White Ht: 66.14 in Wt: 180.00 lbs Age: 60 Gender: Male : 1965 Dx: Preoperative testing_ Smoking Hx: Non-smoker Doctor: NATALIE RESENDEZ Test Date: 07/14/2025 Site: Tech: Yanely Mahoney PRE-BRONCH POST-BRONCH Valerie LLN Pred ULN %Pred ZScore Valerie %Pred %Chg [employer] SPIROMETRY FVC 2.04 2.75 3.67 4.60 55 -2.96 FEV1 1.14 2.13 2.88 3.59 39 -3.61 FEV1/FVC 0.56 0.66 0.79 0.89 71 -2.69 FEFMax 2.04 6.13 8.20 10.27 24 -4.90 FEF50 0.90 1.55 3.67 5.80 24 -2.14 FIF50 0.60 FEF50/FIF50 1.51 90-100 FIVC 0.38 EUT98-74 0.79 1.24 2.60 4.44 30 -2.40 ExpiredTime 3.63 TimeToFEFMax 0.74 SAI 0.32 VolExtrap% 16 LUNG DIFFUSION DLCOunc 14.04 18.11 24.25 31.52 57 -2.93 DLCOStdPB 13.80 18.11 24.25 31.52 56 -3.01 VA 3.53 4.59 5.68 6.85 62 -3.39 Kco 3.90 3.24 4.30 5.45 90 -0.60 Comments: Medications and Allergies were reviewed for possible drug interactions per policy. No contraindications or sensitivities were noted. Meds taken: /hours before testing. The two largest FVCs were repeatable. The two largest FEV1s were repeatable. Extrapolated volume greater than ATS/ERS allows; FEV1 may not be valid. Time to Peak Flow greater than ATS/ERS standard, FEV1 may not be valid. Best test reported despite difficult testing session. the 2 best DLCO measurements were not repeatable. FVC_PRE (L) : 2.04 L FVC_PRED (L) : 3.67 L FVC_LLN (L) : 2.75 L FVC_ULN (L) : 4.60 L FEV1_PRE (L) : 1.14 L FEV1_PRED (L) : 2.88 L FEV1_LLN (L) : 2.13 L FEV1_ULN (L) : 3.59 L FEV1/FVC_PRE (%) : 56 % FEV1/FVC_PRED (%) : 79 % FEV1/FVC_LLN (%) : 66 % YJM84_GLB (L/S) : 0.79 L/S QQW64_FPW (L/S) : 0.80 L/S CDY51_INBB (L/S) : 0.76 L/S TAT57_NBG (L/S) : 0.30 L/S BHK55_ODJ (L/S) : 1.80 L/S KBG46-74%_PRE (L/S) : 0.79 L/S PDK07-18%_PRED (L/S) : 2.60 L/S CEI28-16%_LLN (L/S) : 1.24 L/S PEF_PRE (L/S) : 2.04 L/S PEFMAX_LLN (L/S) : 6.13 L/S PEFMAX_ULN (L/S) : 10.27 L/S SVC_PRED (L) : 3.67 L/S SVC_LLN (L) : 2.75 L/S SVC_ULN (L/S) : 4.60 L/S IC_PRED (L) : 2.45 L/S ERV_PREDICTED (L) : 1.22 L/S DLCO (ML/MIN/MMHG) : 14.04 ml/min/mmHg DLCO_PRED (ML/MIN/MMHG) : 24.25 ml/min/mmHg DLCO_LLN(ML/MIN/MMHG) : 18.11 ml/min/mmHg DLCO_ULN (ML/MIN/MMHG) : 31.52 ml/min/mmHg FET_PRE (S) : 3.63 S VA (L) : 3.53 L VA_PRD (L) : 5.68 L DLCO/VA (ML/MIN/MMHG/L) : 0.04 ml/min/mmHg/L DLCO_VA_PRED (L) : 0.04 ml/min/mmHg/L DLCOCOR (ML/MIN/MMHG) : 13.80 ml/min/mmHg DLCOCOR_PRED (ML/MIN/MMHG) : 24.25 ml/min/mmHg DLCO/VACOR (ML/MIN/MMHG/L) : 0.04 ml/min/mmHg/L Normal [facility] Farshad 06-25-2025 BOB Telephone (THORJESUS) ----- CASH MICHEL ([id number]) 1965 M T Date Time Provider Department 06/25/25 I THORACIC SURG CONSULT THORMN During your visit today, we recorded the following information about you: Rupinder Nayak, IVAN 06/25/2025 8:48 AM Addendum Thoracic Surgery Consultation - review of records for appointment scheduling Received medical records from the office of Erin Gong [address] [facility] [address] Patient is being referred to Unspecified Thoracic Surgeon by Erin Gong for Hiatal Hernia Outside hospital records scanned / in [facility] / Care Everywhere Pathology: 04/25/2023 DIAGNOSIS A. Stomach, antrum, biopsy: - Gastric antral body type mucosa with mild chronic inactive gastritis; see comment. Procedures: EGD 04/25/2023 ( Rufino Abdalla) The Z-line was irregular and was found [...] bulb and second portion of the duodenum. Imaging PET/CT:n/a CT (chest) requested by PCP , needs scheduled MRI: n/a UGI: 07/15 Cardiopulmonary Testing PFT's/Six: 07/14 Cardiac: Stress 04/17/2023 CONCLUSIONS: 1. SPECT Perfusion Study: Normal. 2. There is no scintigraphic evidence for inducible ischemia. 3. No evidence of scarred myocardium. 4. Left ventricle is normal in size. The left ventricle systolic function is normal. 5. Right ventricle is normal in size. The right ventricle systolic function is normal. 6. This is a low risk scan. Gated Stress FBP LVEF % 63 Office Notes/Consults Internal medicine Erin Gong ASSISTANT SERVICE MANAGER 06/24/2025 ASSESSMENT/PLAN: 1. Chest pain, unspecified type - ICD9: 786.50, ICD10: R07.9 (primary diagnosis) Cardiac enzymes negative. Left heart cath done in October 03/2025 showed no significant CAD. Patient advised by ED to see surgeon for his large complex hiatal hernia. Referral placed to thoracic surgery. - CONSULT TO CARDIOTHORACIC SURGERY 2. Lung nodules - ICD9: 793.19, ICD10: R91.8 6 mm lung nodule noted on recent CT. Denies history of smoking. Repeat CT ordered to be done in 6 months. - CT CHEST WO IVCON 3. Hiatal hernia - ICD9: 553.3, ICD10: K44.9 Large complex hiatal hernia noted again on imaging. Patient continues to have chest pain and shortness of breath. Referred to thoracic surgery. - CONSULT TO CARDIOTHORACIC SURGERY History of: FAMILY HISTORY Problem Relation Age of Onset Diabetes Mother Heart disease Mother other (CHF) Mother Hypertension Mother Kidney Disease Mother Heart disease Father 83 DC at age 83 Hypertension Father Parkinson?s Disease Brother PAST MEDICAL HISTORY Diagnosis Date Asthma (HCC) [...] 5cm hiatal hernia RIGHT HEART CATHERIZATION 11/07/2003 SOCIAL HISTORY[1] Request Esophagram PFT, 6mw Consult to thoracic surgery with Gisselle Nayak RN, BSN, [facility] Thoracic Nurse Practice Mgr [1] Social History Tobacco Use Smoking status: Never Smokeless tobacco: Never Vaping Use Vaping status: Never Used Substance Use Topics Alcohol use: Never Drug use: Never Maura Cheung 06/30/2025 12:20 PM Signed Pt was scheduled for the requested consult w/Dr Resendez w/pfts and an esophagram study per Rupinder Dodd for the 1st available dates of 07/14/25 and 07/15/25. Unable to leave a voicemail message for pt or pt's sister listed as pt's emergency contact, both voicemail were full. An appt reminder was sent out to pt via [employer]. Referr (more content not included)... Normal [facility] CNOVon 06-24-2025 CNOV Office Visit (INWAHE ) ----- CASH MICHEL ([id number]) 1965 M [facility] Date Time Provider Department 06/24/25 2:00 PM [facility] During your visit today, we recorded the following information about you: Temperature Pulse Blood pressure Weight 98.7 degrees 93/minute 122/84 81.8 kg Height 1.727 m Erin Gong, ASSISTANT SERVICE MANAGER.[employer] 06/24/2025 3:36 PM Signed Subjective Cash Michel is a 60 year old male. HPI Patient here for ED follow up. He developed sudden chest pain on 06/21, felt like he was hit with a baseball in his chest. He went to [facility]. Cardiac enzymes were normal. He had a CTA chest which showed a new 6 mm lung nodule and stable but large complex hiatal hernia. He had a left heart cath in 10/2024 that was normal for chest pain. He states his hiatal hernia was evaluated by a surgeon in [place] who feels its too large for him to treat at a small hospital. He has never smoked. Review of Systems All other systems reviewed and are negative. Past Medical History: PAST MEDICAL HISTORY Diagnosis Date Asthma (HCC) [...] Kidney Disease Mother Heart disease Father 83 DC at age 83 Hypertension Father Parkinson?s Disease Brother Social History: SOCIAL HISTORY[1] Current Medications: Encounter Medications[2] Allergies: ALLERGIES No Known Allergies Vitals: BP 122/84 Pulse 93 Temp 98.7 Ht 5' 8 (1.73m) Wt 180 lb 5.4 oz (81.8kg) SpO2 98% BMI 27.43 kg/(m2). Objective There were no vitals taken for this visit. Physical Exam HENT: Head: Normocephalic and atraumatic. Cardiovascular: Rate and Rhythm: Normal rate and regular rhythm. Heart sounds: Normal heart sounds. Pulmonary: Effort: Pulmonary effort is normal. Breath sounds: Normal breath sounds. Musculoskeletal: Cervical back: Normal range of motion. Skin: General: Skin is warm and dry. Neurological: Mental Status: He is alert and oriented to person, place, and time. Psychiatric: Judgment: Judgment normal. ASSESSMENT/PLAN: 1. Chest pain, unspecified type - ICD9: 786.50, ICD10: R07.9 (primary diagnosis) Cardiac enzymes negative. Left heart cath done in October 03/2025 showed no significant CAD. Patient advised by ED to see surgeon for his large complex hiatal hernia. Referral placed to thoracic surgery. - CONSULT TO CARDIOTHORACIC SURGERY 2. Lung nodules - ICD9: 793.19, ICD10: R91.8 6 mm lung nodule noted on recent CT. Denies history of smoking. Repeat CT ordered to be done in 6 months. - CT CHEST WO IVCON 3. Hiatal hernia - ICD9: 553.3, ICD10: K44.9 Large complex hiatal hernia noted again on imaging. Patient continues to have chest pain and shortness of breath. Referred to thoracic surgery. - CONSULT TO CARDIOTHORACIC SURGERY Erin Gong APRN.[employer] [1] Social History Tobacco Use Smoking status: Never Smokeless tobacco: Never Vaping Use Vaping status: Never Used Substance Use Topics Alcohol use: Never Drug use: Never [2] lisinopril-hydroCHLOROthi azide (ZESTORETIC) 20-12.5 mg per tablet, Take 1 tablet by mouth once daily., Disp: 30 tablet, Rfl: 5 sucralfate (CARAFATE) 1 gram tablet, Take 1 tablet by mouth every 12 hours., Disp: , Rfl: famotidine (PEPCID) 40 mg tablet, Take 40 mg by mouth daily at bedtime., Disp: , Rfl: amLODIPine (NORVASC) 10 mg tablet, Take 1 tablet by mouth once daily., Disp: 90 tablet, Rfl: 3 aspirin, enteric coated (ASPIRIN, ENTERIC COATED) 81 mg EC tablet, Take 1 tablet by mouth once daily., Disp: 90 tablet, Rfl: 3 rosuvastatin (CRESTOR) 20 mg tablet, Take 1 tablet by mouth daily at bedtime., Disp: 90 tablet, Rfl: 3 peg 3350-Electrolytes (GOLYTELY) 236-22.74-6.74 -5.86 gram suspension, Refer to printed prep instructions from your provider. (Patient not taking: Reported on 05/08/2025), Disp: 4000 mL, Rfl: 0 metoprolol succinate ER (TOPROL XL) 25 mg 24 hr tablet, Take 0.5 tablets by mouth once daily. (Patient not taking: Reported on 05/08/2025), Dis (more content not included)... Normal [facility] Electrocardiogram reportOrde red By: Marshall Grissom on 06-22-2025 EKG study [facility] Cardi[facility] Services [address] [place] [address] 12 Lead EKG 06/21/25 1834 MR#: [id number] Acct: [id number] Name: CASH MICHEL Rep #:[id number] : 1965 60 From: Marshall Grissom MD Attending Dr: Status: DEP E R Ordering Dr: Calixto Mccullough MD Date: 06/21 Location: ED Sex: M C Admitted: Test Reason : CP Blood Pressure : */* mmHG Vent. Rate : 91 BPM Atrial Rate : 91 BPM P-R Int : 150 ms QRS Dur : 94 ms QT Int : 374 ms P-R-T Axes : 18 -25 6 degrees QTcB Int : 460 ms Normal sinus rhythm Moderate voltage criteria for LVH, may be normal variant ( R in aVL , Sarmad product ) Borderline ECG Confirmed by JACIEL WOMACK, MARSHALL ([id number]), commercial production editor AUDREY PEPPER ([id number]) on 06/23/2025 8:30:24 AM Referred By: Confirmed By: MARSHALL GRISSOM MD 06/23/25829 Date _ Marshall Grissom MD CC: Dr. Calixto Mccullough MD ~ Signed [facility] Work Phone: 12 Lead EKGon 06-21-2025 12 Lead EKG [facility] Cardi[facility] Services [address] [place] [address] 12 Lead EKG 06/21/25 1834 MR#: [id number] Acct: [id number] Name: CASH MICHEL Rep #: [id number] : 1965 60 From: Marshall Grissom MD Attending Dr: Status: DEP ER Ordering Dr: Calixto Mccullough MD Date: 06/21/25 Location: ED Sex: M C Admitted: Test Reason : CP Blood Pressure : */* mmHG Vent. Rate : 91 BPM Atrial Rate : 91 BPM P-R Int : 150 ms QRS Dur : 94 ms QT Int : 374 ms P-R-T Axes : 18 -25 6 degrees QTcB Int : 460 ms Normal sinus rhythm Moderate voltage criteria for LVH, may be normal variant ( R in aVL , [place] product ) Borderline ECG Confirmed by MARSHALL GRISSOM MD ([id number]), commercial production editor AUDREY PEPPER ([id number]) on 06/23/2025 8:30:24 AM Referred By: Confirmed By: MARSHALL GRISSOM MD 06/23/25829 Date Marshall Grissom MD CC: Dr. Calixto Mccullough MD Signed Normal [facility] Absolute lymphocyte countOrd ered By: Calixto Mccullough on 06-21-2025 Lymphocytes Auto (Unsp spec) [#/Vol] 2.21 10*3/uL 0.83-4.51 [facility] Absolute neutrophil countOrd ered By: Calixtomelvin Mccullough on 06-21-2025 Neutrophils (Bld) [#/Vol] 6.4 10*3/uL 2.0-7.7 [facility] Anion gap in Serum or Plasma Ordered By: Calixtomelvin Mccullough on 06-21-2025 Anion gap [Moles/Vol] 11 mmol/L - [facility] Automated lymphocyte count a s percentage of total leukocytesOrdered By: Calixto Mccullough on 06-21-2025 Lymphocytes/100 WBC Auto (Unsp spec) 23.5 % [facility] BUN/creatinine ratioOrdered By: Calixto Mccullough on 06-21-2025 Urea nitrogen/Creatinine [Mass ratio] 13.9 mg/mg 07-21 [facility] Basic Metabolic Profile (BMP )on 06-21-2025 BUN/CRE 13.9 RATIO Normal 07-21 [facility] Comment on above: Performed By: #### L 500.2500, L100.0100 #### [facility] [address] [place], [address] Calcium [Mass/Vol] 9.2 mg/dL Normal 7.6-11.0 [facility] Comment on above: Performed By: #### L 500.2500, L100.0100 #### [facility] [address] [place], [address] Chloride [Moles/Vol] 108 mmol/L Normal 98-108 [facility] Comment on above: Performed By: #### L 500.2500, L100.0100 #### [facility] [address] [place], [address] CO2 [Moles/Vol] 20.9 mmol/L Low 21.0-32.0 [facility] Comment on above: Performed By: #### L 500.2500, L100.0100 #### [facility] [address] [place], [address] Creatinine [Mass/Vol] 1.02 mg/dL Normal 0.70-1.20 [facility] Comment on above: Performed By: #### L 500.2500, L100.0100 #### [facility] [address] [place], [address] ECRCL 72.65 ml/min Normal 50-250 [facility] Comment on above: Performed By: #### L 500.2500, L100.0100 #### [facility] [address] [place], [address] GAP 11 Normal 5-15 [facility] Comment on above: Performed By: #### L 500.2500, L100.0100 #### [facility] [address] [place], [address] GFR/1.73 sq M.predicted among non-blacks MDRD (S/P/Bld) [Vol rate/Area] 83 mL/min/{1.73_m2} Normal >60 [facility] Comment on above: Result Comment: mL/m in/1.73m2 CKD-EPI Creatinine Equation (2020) Performed By: #### L 500.2500, L100.0100 #### [facility] [address], [address] Glucose [Mass/Vol] 121 mg/dL High 70-99 [facility] Comment on above: Performed By: #### L 500.2500, L100.0100 #### [facility] [address] [place], [address] Potassium [Moles/Vol] 3.7 mmol/L Normal 3.3-5.1 [facility] Comment on above: Performed By: #### L 500.2500, L100.0100 #### [facility] [address] [place], [address] Sodium [Moles/Vol] 140 mmol/L Normal 133-145 [facility] Comment on above: Performed By: #### L 500.2500, L100.0100 #### [facility] [address] [place], [address] Urea nitrogen [Mass/Vol] 14 mg/dL Normal 4-19 [facility] Comment on above: Performed By: #### L 500.2500, L100.0100 #### [facility] [address] [place], [address] Basophil percentageOrdered B y: Calixto Mccullough on 06-21-2024 Basophils/100 WBC (Bld) 0.6 % 0-1 [facility] CBC W/Diff, Automatedon 06-03 0-2024 Absolute Lymph 2.21 X10 3/uL Normal 0.83-4.51 [facility] Comment on above: Performed By: #### L 500.2500, L100.0100 #### [facility] [address] [place], [address] Absolute Neut 6.4 X10 3/uL Normal 2.0-7.7 [facility] Comment on above: Performed By: #### L 500.2500, L100.0100 #### [facility] [address] [place], [address] Basophils/100 WBC (Bld) 0.6 % Normal 0-1 [facility] Comment on above: Performed By: #### L 500.2500, L100.0100 #### [facility] [address] [place], [address] Eosinophils/100 WBC (Bld) 1.0 % Normal 0-5 [facility] Comment on above: Performed By: #### L 500.2500, L100.0100 #### [facility] [address] [place], [address] Erythrocyte distribution width (RBC) [Ratio] 17.2 % High 11.6-14.6 [facility] Comment on above: Performed By: #### L 500.2500, L100.0100 #### [facility] [address] [place], [address] Hematocrit (Bld) [Volume fraction] 33.2 % Low 40-54 [facility] Comment on above: Performed By: #### L 500.2500, L100.0100 #### [facility] [address] [place], [address] Hemoglobin (Bld) [Mass/Vol] 9.9 g/dL Low 13.0-16.5 [facility] Comment on above: Performed By: #### L 500.2500, L100.0100 #### [facility] [address] [place], [address] IG% 0.400 Normal 0.0-0.9 [facility] Comment on above: Result Comment: IG% - Immature Granulocytes (promyelocytes, myelocytes and metamyelocytes) > 1% indicates that a LEFT SHIFT is Present. Performed By: #### L 500.2500, L100.0100 #### [facility] [address] [place], [address] Lymphocytes/100 WBC (Bld) 23.5 % Normal 19-41 [facility] Comment on above: Performed By: #### L 500.2500, L100.0100 #### [facility] [address] [place], [address] MCH (RBC) [Entitic mass] 21.5 pg Low 27.0-32.0 [facility] Comment on above: Performed By: #### L 500.2500, L100.0100 #### [facility] [address] [place], [address] MCHC (RBC) [Mass/Vol] 29.8 g/dL Low 32-36 [facility] Comment on above: Performed By: #### L 500.2500, L100.0100 #### [facility] [address] [place], [address] MCV (RBC) [Entitic vol] 72.0 fL Low 80-94 [facility] Comment on above: Performed By: #### L 500.2500, L100.0100 #### [facility] [address] [place], [address] Monocytes/100 WBC (Bld) 6.8 % Normal 0-10 [facility] Comment on above: Performed By: #### L 500.2500, L100.0100 #### [facility] [address] [place], [address] Neutrophils/100 WBC (Bld) 67.7 % Normal 47-70 [facility] Comment on above: Performed By: #### L 500.2500, L100.0100 #### [facility] [address] [place], [address] Nucleated RBC (Bld) [#/Vol] 0 10*3/uL Normal 0-5 [facility] Comment on above: Performed By: #### L 500.2500, L100.0100 #### [facility] [address] [place], [address] Platelet mean volume (Bld) [Entitic vol] 10.1 fL Normal 6.2-12.0 [facility] Comment on above: Performed By: #### L 500.2500, L100.0100 #### [facility] [address] [place], [address] Platelets (Bld) [#/Vol] 346 10*3/uL Normal 150-450 [facility] Comment on above: Performed By: #### L 500.2500, L100.0100 #### [facility] [address] [place], [address] RBC (Bld) [#/Vol] 4.61 10*6/uL Normal 4.6-6.2 [facility] Comment on above: Performed By: #### L 500.2500, L100.0100 #### [facility] [address] [place], [address] RDW SD 43.7 fl Normal 35.1-43.9 [facility] Comment on above: Performed By: #### L 500.2500, L100.0100 #### [facility] [address] [place], [address] WBC (Bld) [#/Vol] 9.4 10*3/uL Normal 4.4-11.0 [facility] Comment on above: Performed By: #### L 500.2500, L100.0100 #### [facility] [address] [place], [address] CTA Chest W/WO Contraston CTA Chest W/WO Contrast [facility] Imaging Services [address] [place] [address] CTA Chest W/WO Contrast MR#: [id number] Acct: [id number] Name: CASH MICHEL Rep #: [id number] : 1965 M 60 From: Dylan Lofton MD PCP: OUT OF TOWN DOCTOR Status: REG ER Study: CTA Chest W/WO Contrast Date of Exam: 06/21/25 Exam# [id number] Ordering Dr: Calixto Mccullough MD ADDENDUM by Dr. Tarik Pedro MD on 06/21/25 at 2543 Additional comparison is made to CT chest dated 11/11/2024. Please note that the 6 mm pulmonary nodule in the left lower lobe is not seen previously. Recommend Fleischner society follow-up guidelines at six-months. Large complex hiatal hernia appears grossly unchanged, accounting for differences in positioning and technique. Reading Location: [facility] 06/21/25 6133 Date cc: Dr. Calixto Mccullough MD * Signed PROCEDURE: CTA CHEST W/WO CONTRAST 06/21/2025 REASON FOR EXAM: CHEST PAIN THROUGH THE BACK ELEVATED D-DIMER R/ TECHNIQUE: Procedure Code: CTCTACHWW Modality: CT Procedure: CTA CHEST W/WO CONTRAST Multiplanar Sagittal and Coronal images were obtained. CONTRAST: Please see CT VOLUME: Please see CT mL One or more dose reduction techniques were used (e.g., Automated exposure control, adjustment of the mA and/or kV according to patient size, use of iterative reconstruction technique). RADIATION DOSE SUMMARY: CTDlvol: Please see CT mGy DLP: 524.05 mGycm COMPARISON: Same day chest x-ray FINDINGS: Pulmonary arteries: Diameter of the main pulmonary trunk at 2.8 cm is within normal range. Enhancement within the central pulmonary arteries through the level of the segmental branches is preserved without evidence of central acute appearing occlusive pulmonary embolus. Evaluation of some smaller peripheral branches distal to the segmental levels is nondiagnostic secondary to motion related misregistration artifact and heterogeneous diminished peripheral contrast bolus. Maximal intensity of bolus on this study is left heart and systemic arterial, consistent with suboptimal bolus timing. Heart: The heart is not enlarged. The left atrium is effaced by a large hiatal hernia. This could affect cardiac function. Ventricular ratio is maintained. No cardiac chamber filling defect is seen to suggest cardiac thrombus. No significant pericardial effusion. Evaluation of coronary arteries is limited by motion artifact. No dense appearing coronary calcification seen. Aorta: The aortic root is not dilated. No thoracic aortic aneurysm or dissection. There is slight uncoiling of the aortic arch. No hemodynamically significant aortic stenosis. Three-vessel branch pattern noted off the aortic arch. Visualized proximal great vessels within the superior mediastinum appear patent. Mediastinum: No mediastinal hematoma. No mediastinal soft tissue emphysema. Lymph nodes: No mediastinal or hilar lymphadenopathy by size criteria. Esophagus: No periesophageal inflammation. There is a fat containing 14 cm hiatal hernia. The gastric fundus is distended with an air-fluid level up to 10.3 cm in diameter with the gastroesophageal junction below the level of the upper fundus suggesting a periesophageal fundal hernia possibly with slight obstruction or partial volvulus at the esophageal hiatus. Clinical correlation with symptoms. The stomach below the diaphragm is moderately distended with an air-fluid level. This could be correlated for recent vigorous ingestion versus mild gastroparesis. If there are symptoms related to the esophagus/stomach, consider endoscopy or esophagram/upper GI. Thyroid: Slight heterogeneity of the visualized left thyroid lobe of indeterminate significance. Lungs: The lungs are symmetrically expanded. Bibasal subpleural reticular opacities noted [id number]-[id number]-right likely due to atelectasis and/or pulmonary parenchymal fibrotic changes. There is no consolidation. Indeterminate 6 mm noncalcified left lower lobe pulmonary nodule (image 42 axial series) is of uncertain significance. Malignancy can not be ruled out. Clinical correlation with risk factors. If there is no history of malignancy, consider Fleischner society follow-up guidelines at six-months. Pleura: No pleural effusion. There is no pneumothorax. Upper abdomen: No free air or free fluid within the visualized upper most abdomen. Body wall: No body wall hematoma or soft tissue emphysema. Osseous: Moderately severe degenerative changes of the spine and bony thorax. No acute displaced fracture seen. CT/CTA Chest W/WO Contrast IMPRESSION: No evidence for large central pulmonary embolus. Limitations discussed above. - Large complex hiatal hernia. Clinical correlation for part (more content not included)... Normal [facility] Carbon dioxide, total [Moles /volume] in Central venous bloodOrdered By: Calixto Mccullough on 06-21-2025 CO2 [Moles/Vol] 20.9 mmol/L Low 21.0-32.0 [facility] Chest PA and Lateralon 06-21 Chest PA and Lateral [facility] [address], [place] [address] Chest PA and Lateral MR#: [id number] Acct: [id number] Name: CASH MICHEL Rep #: [id number] : 1965 60 From: Dylan Lofton MD PCP: OUT OF TOWN DOCTOR Status: REG ER Study: Chest PA and Lateral Date of Exam: 06/21/25 Exam# [id number] Ordering Dr: Calixto Mccullough MD PROCEDURE: CHEST PA AND LATERAL 06/21/2025 REASON FOR EXAM: LEFT-SIDED CHEST PAIN AND BACK PAIN TECHNIQUE: Procedure Code: RADCXR Modality: DX Procedure: CHEST PA AND LATERAL COMPARISON: Chest x-ray March 26, 2025. FINDINGS: Lungs: The left hemidiaphragm is slightly elevated compared to the right of indeterminate significance. Lung volumes are very low, particularly the left. Hazy airspace opacity seen at the left lung base possibly due to atelectasis or mild infiltrate/pneumonia. Clinical correlation and radiographic follow-up is advised to confirm resolution. For follow-up consider proper inspiration PA and lateral views. Pleura: No significant pleural effusion seen. There is no evidence of pneumothorax. Mediastinum: There is no mediastinal widening or mediastinal shift. Heart: The cardiac silhouette is not enlarged. 10.5 cm lucency overlying the cardiac shadow likely representing a distended gas-filled hiatal hernia. Vascular: Calcified aortic atherosclerosis. Jeremi: The pulmonary jeremi are not enlarged or retracted. Osseous: No acute fracture is seen. Scoliosis and degenerative changes of the spine. Deformity of the right scapula may be developmental or chronic posttraumatic. RAD/Chest PA and Lateral IMPRESSION: Mild opacity at the left lung base to be correlated for atelectasis versus infiltrate/pneumonia. - 10.5 cm lucency overlying the cardiac shadow likely representing a gas-filled distended hiatal hernia of indeterminate clinical significance. - Other findings discussed above. Reading Location: [id number] CC: Dr. Calixto Mccullough MD Moth Proofer: Signed Normal [facility] Chloride assayOrdered By: Inocencio Mccullough on 06-21-2025 Chloride [Moles/Vol] 108 mmol/L 98-108 [facility] D-Dimer Quantitative (DVT/PE )on 06-21-2025 D-DIMER QUANT 1.58 FEU/ug/m Invalid Interpretation Code 0.27-0.49 [facility] Comment on above: Result Comment: CRIT ICAL VALUE CALLED TO Shane 06/21/25 1855 Megan Reed. RESULTS READ BACK BY same. D-Dimer ELEVATED (>0.49): Additional studies and clinical assessments are indicated to conclude diagnosis of: Deep Vein Thrombosis (DVT) or Pulmonary Embolism (PE) Performed By: #### L 500.2500, L100.0100 #### [facility] [address] [place], [address] Emergency Department Summary on 06-21-2025 Emergency Department Summary [facility] Medical Records Department [address] [place] [address] Emergency Department Summary 06/21/25 MR#: [id number] Acct: [id number] Name: CASH MICHEL Rep #: [id number] : 1965 60 From: Calixto Mccullough MD PCP: OUT OF TOWN DOCTOR Status:REG ER Location: ED HPI History of Present Illness Chief Complaint: Chest Pain Detail of Chief Complaint: Chest pain 3 days ago and today Informant: patient Onset/Context/Timing Onset: Today and Days Activity at onset: sudden and rest Timing: Continuous Quality: Positive for Aching (Detailed HPI narrative) Location: Left Chest Current Severity: Mild Maximum Severity: Severe Worsened By: Nothing Relieved By: Nothing Associated Symptoms: Positive for Nausea and - (Back pain) Narrative Narrative: Patient is a 60-year-old male. He states that a couple days ago while walking got an unusual sensation in his chest weak fell. He hit his head on the left side. He had no loss of conscious. Is not amnestic. He is not on anticoagulant or antiplatelet thrombotic. He denies headache. He denies double vision blurred vision loss of vision. Denies travis ears decreased hearing. Denies neck pain. Denies paresthesia, anesthesia or motor weakness upper or lower extremities. Denies problems with coordination or balance. Today while standing she felt like a /baseball struck him in the chest went through to his back and his left arm became numb and is still numb. He states he fell to the ground because of the intensity of pain. He is still having pain. He does have a history of hypertension. States is compliant with his blood pressure medicine. He has no known history of cardiac disease. He does have a history of hiatal hernia. He denies food intolerance. Denies black or maroon-colored stool. He states he has never had pain like this before. Patient does have history of nonischemic cardiomyopathy. We do not have history of heart disease but not due to vascular pathology. Prior Similar Symptoms: No Recent Illness/Hospitalization: No CVD Risk Factors: Positive for Hypertension and Hypercholesterolemia; Negative for Diabetes, Family History 1' PE Risk Factors: Negative for Recent Travel/Surgery, Recent Immobilization, Prior DVT or PE, Cancer or OCP + Smoking + >/=35 TAD Risk Factors: Positive for Hypertension; Negative for Marfan's Syndrome or Family History [facility] Medical History Chest pain Essential hypertension [...] subjective, sweats or weight loss Eyes Eyes: Reports none; Denies blurry vision or change in vision ENT ENT ED: Denies ear pain, rhinorrhea or sore throat Cardiovascular Cardiovascular: Reports as per HPI; Denies orthopnea or paroxysmal nocturnal dyspnea Respiratory/Chest Respiratory/Chest: Denies cough, dyspnea, dyspnea on exertion, orthopnea or paroxysmal nocturnal dyspnea Gastrointestinal Gastrointestinal: Denies abdominal pain, constipation, diarrhea, melena or vomiting Genitourinary Genitourinary ED: Denies dysuria, hematuria or urinary frequency Musculoskeletal Musculoskeletal: Reports back pain and other Details: Left scapular pain ; Denies arthralgias, myalgias or neck pain Integumentary Denies abscess (more content not included)... Normal [facility] Eosinophil percentageOrdered By: Calixtomelvin Mccullough on 06-21-2025 Eosinophils/100 WBC (Bld) 1.0 % 0-5 [facility] Erythrocyte distribution wid th ratioOrdered By: Calixtomelvin Mccullough on 06-21-2025 Erythrocyte distribution width (RBC) [Ratio] 17.2 % High 11.6-14.6 [facility] Erythrocyte distribution wid th standard deviationOrdered By: Calixtomelvin Mccullough on 06-21-2025 Erythrocyte distribution width (RBC) [Ratio] 43.7 fl 35.1-43.9 [facility] Glomerular filtration rate ( GFR) estimation/1.73 sq m using serum, plasma, or whole bOrdered By: Calixtomelvin Mccullough on 06-21-2025 GFR/1.73 sq M.predicted among non-blacks MDRD (S/P/Bld) [Vol rate/Area] 83 mL/min/{1.73_m2} >60 [facility] Comment on above: mL/min/1.73m2 CKD-EP I Creatinine Equation (2020) Hematocrit Auto (Bld) [Volum e fraction]Ordered By: Calixtomelvin Mccullough on 06-21-2025 Hematocrit (Bld) [Volume fraction] 33.2 % Low 40-54 [facility] Hemoglobin measurementOrdere d By: Calixto Mccullough on 06-21-2025 Hemoglobin (Bld) [Mass/Vol] 9.9 g/dL Low 13.0-16.5 [facility] Immature granulocytes/100 WB C Auto (Bld)Ordered By: Calixtomelvin Mccullough on 06-21-2025 Immature granulocytes/100 WBC (Bld) 0.400 % 0.0-0.9 [facility] Comment on above: IG% - Immature Granu locytes (promyelocytes, myelocytes and metamyelocytes) > 1% indicates that a LEFT SHIFT is Present. L501.4021on 06-21-2025 Trop T High Sen 7 ng/L Normal <=22 [facility] Comment on above: Performed By: #### L 500.2500, L100.0100 #### [facility] [address] [place], [address] MCV (mean corpuscular volume ) determinationOrdered By: Calixtomelvin Mccullough on 06-21-2025 MCV (RBC) [Entitic vol] 72.0 fL Low 80-94 [facility] Mean corpuscular hemoglobin (MCH) determinationOrdered By: Calixto Mccullough on 06-21-2025 MCH (RBC) [Entitic mass] 21.5 pg Low 27.0-32.0 [facility] Mean corpuscular hemoglobin concentration (MCHC) determinationOrdered By: Calixtomelvin Mccullough on 06-21-2025 MCHC (RBC) [Mass/Vol] 29.8 g/dL Low 32-36 [facility] Mean platelet volume determi nationOrdered By: Calixtomelvin Mccullough on 06-21-2025 Platelet mean volume (Bld) [Entitic vol] 10.1 fL 6.2-12.0 [facility] Monocyte percentageOrdered B y: Calixto Mccullough on 06-21-2025 Monocytes/100 WBC (Bld) 6.8 % 0-10 [facility] Neutrophil percentageOrdered By: Calixto Mccullough on 06-21-2025 Neutrophils/100 WBC (Bld) 67.7 % 47-70 [facility] Nucleated red blood cell per centageOrdered By: Calixtomelvin Mccullough on 06-21-2025 Nucleated RBC/100 WBC (Bld) [Ratio] 0 % 0-5 [facility] Platelet countOrdered By: melvin Mccullough on 06-21-2025 Platelets (Bld) [#/Vol] 346 10*3/uL 150-450 [facility] Potassium measurement (mass/ volume)Ordered By: Calixtomelvin Mccullough on 06-21-2025 Potassium (Unsp spec) [Mass/Vol] 3.7 mmol/L 3.3-5.1 [facility] RBC Auto (Bld) [#/Vol]Ordere d By: Calixto Mccullough on 06-21-2025 RBC (Bld) [#/Vol] 4.61 10*6/uL 4.6-6.2 [facility] Serum creatinine measurement (mass/volume)Ordered By: Calixto Mccullough on 06-21-2025 Creatinine [Mass/Vol] 1.02 mg/dL 0.70-1.20 [facility] Serum glucose measurement (m ass/volume)Ordered By: Calixto Mccullough on 06-21-2025 Glucose [Mass/Vol] 121 mg/dL High 70-99 [facility] Serum or plasma calcium valerie urement (mass/volume)Ordered By: Calixtomelvin Mccullough on 06-21-2025 Calcium [Mass/Vol] 9.2 mg/dL 7.6-11.0 [facility] Serum or plasma urea nitroge n measurement (mass/volume)Ordered By: Calixtomelvin Mccullough on 06-21-2025 Urea nitrogen [Mass/Vol] 14 mg/dL 4-19 [facility] Sodium levelOrdered By: Calixto Mccullough on 06-21-2025 Sodium [Moles/Vol] 140 mmol/L 133-145 [facility] Troponin T HS 2 HRon 025 Trop T High Sen 9 ng/L Normal <=22 [facility] Comment on above: Performed By: #### L 501.4021, L100.0100, L500.2500 #### [facility] [address] [place], [address] Troponin T HS 4 HRon 025 Trop T High Sen Normal <=22 [facility] Comment on above: Result Comment: Canc elled via OM: not needed per MD Performed By: #### L 500.2500, L100.0100 #### [facility] [address] [place], [address] Troponin T.cardiac [Mass/vol ume] in Serum or Plasma by High sensitivity methodOrdered By: Calixto Mccullough on 06-21-2025 Troponin T.cardiac High sensitivity method [Mass/Vol] 9 ng/L <22 [facility] Troponin T.cardiac High sensitivity method [Mass/Vol] 7 ng/L Invalid Interpretation Code <22 [facility] Comment on above: Delta: < 6 on -2041 White blood cell (WBC) count Ordered By: Calixto Mccullough on 06-21-2025 WBC (Bld) [#/Vol] 9.4 10*3/uL 4.4-11.0 [facility] 05-08[facility]20[facility] ----- CASH MICHEL ([id number]) 1965 M [facility] Date Time Provider Department 05/08/25 3:30 PM TRISTIAN CHAUDHARY [facility] During your visit today, we recorded the following information about you: Temperature Pulse Blood pressure Weight 98.5 degrees 87/minute 130/82 82.8 kg Height 1.727 m Tristian Chaudhary MD 05/08/2025 4:16 PM Signed Subjective Cash David Michel is a 60 year old male. [...] may contribute to constipation. - Advised by [facility] in [place] to have gallbladder removed; has not scheduled [...] prescribed. RTC LIMA Chaudhary MD Recording using [employer] software for draft documentation of the visit was discussed with the patient/authorized it sales representative; all questions welcomed and answered. Patient/authorized it sales representative agreed to proceed Referring Provider: SELF [...] - rosuvastat (more content not included)... Normal [facility] CBC W Auto Differential pane l (Bld)on 04-30-2025 Basophils (Bld) [#/Vol] 0.06 10*3/uL Normal <0.11 [facility] Comment on above: Order Comment: Speci men Type: BLOOD SPECIMEN Ordering Facility: [facility] Address: [address] [place] [address] Performed By: #### P SAS1 #### [facility] CLIA [id number] [address] [place] [address] [place] Basophils/100 WBC (Bld) 0.6 % Normal [facility] Comment on above: Order Comment: Speci men Type: BLOOD SPECIMEN Ordering Facility: [facility] Address: [address] [place] [address] Performed By: #### P SAS1 #### [facility] CLIA [id number] [address] [place] [id number] [place] Differential cell count method Nom (Bld) Auto Normal [facility] Comment on above: Order Comment: Speci men Type: BLOOD SPECIMEN Ordering Facility: [facility] Address: [address] [place] [address] Performed By: #### P SAS1 #### [facility] CLIA [id number] [address] [place] [address] [place] Eosinophils (Bld) [#/Vol] 0.14 10*3/uL Normal <0.46 [facility] Comment on above: Order Comment: Speci men Type: BLOOD SPECIMEN Ordering Facility: [facility] Address: [address] [place] [address] Performed By: #### P SAS1 #### [facility] CLIA [id number] [address] [place] [address] [place] Eosinophils/100 WBC (Bld) 1.4 % Normal [facility] Comment on above: Order Comment: Speci men Type: BLOOD SPECIMEN Ordering Facility: [facility] Address: [address] [place] [address] Performed By: #### P SAS1 #### [facility] CLIA [id number] [address] [place] [address] [place] Erythrocyte distribution width (RBC) [Ratio] 16.8 % High 11.5-15.0 [facility] Comment on above: Order Comment: Speci men Type: BLOOD SPECIMEN Ordering Facility: [facility] Address: [address] [place] [address] Performed By: #### P SAS1 #### [facility] CLIA [id number] [address] [place] [address] [place] Hematocrit (Bld) [Volume fraction] 36.5 % Low 39.0-51.0 [facility] Comment on above: Order Comment: Speci men Type: BLOOD SPECIMEN Ordering Facility: [facility] Address: [address] [place] [address] Performed By: #### P SAS1 #### [facility] CLIA [id number] [address] [place] [address] [place] Hemoglobin (Bld) [Mass/Vol] 10.4 g/dL Low 13.0-17.0 [facility] Comment on above: Order Comment: Speci men Type: BLOOD SPECIMEN Ordering Facility: [facility] Address: [address] [place] [address] Performed By: #### P SAS1 #### [facility] CLIA [id number] [address] [place] [address] [place] Immature granulocytes (Bld) [#/Vol] 0.03 10*3/uL Normal <0.10 [facility] Comment on above: Order Comment: Speci men Type: BLOOD SPECIMEN Ordering Facility: [facility] Address: [address] [place] [address] Performed By: #### P SAS1 #### [facility] CLIA [id number] [address] [place] [address] [place] Immature granulocytes/100 WBC (Bld) 0.3 % Normal [facility] Comment on above: Order Comment: Speci men Type: BLOOD SPECIMEN Ordering Facility: [facility] Address: [address] [place] [address] Performed By: #### P SAS1 #### [facility] CLIA [id number] [address] [place] [address] [place] Lymphocytes (Bld) [#/Vol] 2.22 10*3/uL Normal 1.00-4.00 [facility] Comment on above: Order Comment: Speci men Type: BLOOD SPECIMEN Ordering Facility: [facility] Address: [address] [place] [address] Performed By: #### P SAS1 #### [facility] CLIA [id number] [address] [place] [address] [place] Lymphocytes/100 WBC (Bld) 22.8 % Normal [facility] Comment on above: Order Comment: Speci men Type: BLOOD SPECIMEN Ordering Facility: [facility] Address: [address] [place] [address] Performed By: #### P SAS1 #### [facility] CLIA [id number] [address] [place] [address] [place] MCH (RBC) [Entitic mass] 21.1 pg Low 26.0-34.0 [facility] Comment on above: Order Comment: Speci men Type: BLOOD SPECIMEN Ordering Facility: [facility] Address: [address] [place] [address] Performed By: #### P SAS1 #### [facility] CLIA [id number] [address] [place] [address] [place] MCHC (RBC) [Mass/Vol] 28.5 g/dL Low 30.5-36.0 [facility] Comment on above: Order Comment: Speci men Type: BLOOD SPECIMEN Ordering Facility: [facility] Address: [address] [place] [address] Performed By: #### P SAS1 #### [facility] CLIA [id number] [address] [place] [address] [place] MCV (RBC) [Entitic vol] 73.9 fL Low 80.0-100.0 [facility] Comment on above: Order Comment: Speci men Type: BLOOD SPECIMEN Ordering Facility: [facility] Address: [address] [place] [address] Performed By: #### P SAS1 #### [facility] CLIA [id number] [address] [place] [address] [place] Monocytes (Bld) [#/Vol] 0.79 10*3/uL Normal <0.87 [facility] Comment on above: Order Comment: Speci men Type: BLOOD SPECIMEN Ordering Facility: [facility] Address: [address] [place] [address] Performed By: #### P SAS1 #### [facility] CLIA [id number] [address] [place] [address] [place] Monocytes/100 WBC (Bld) 8.1 % Normal [facility] Comment on above: Order Comment: Speci men Type: BLOOD SPECIMEN Ordering Facility: [facility] Address: [address] [place] [address] Performed By: #### P SAS1 #### [facility] CLIA [id number] [address] [place] [address] [place] Neutrophils (Bld) [#/Vol] 6.51 10*3/uL Normal 1.45-7.50 [facility] Comment on above: Order Comment: Speci men Type: BLOOD SPECIMEN Ordering Facility: [facility] Address: [address] [place] [address] Performed By: #### P SAS1 #### [facility] CLIA [id number] [address] [place] [address] [place] Neutrophils/100 WBC (Bld) 66.8 % Normal [facility] Comment on above: Order Comment: Speci men Type: BLOOD SPECIMEN Ordering Facility: [facility] Address: [address] [place] [address] Performed By: #### P SAS1 #### [facility] CLIA [id number] [address] [place] [address] [place] Nucleated RBC (Bld) [#/Vol] 10*3/uL Normal <0.01 [facility] Comment on above: Order Comment: Speci men Type: BLOOD SPECIMEN Ordering Facility: [facility] Address: [address] [place] [address] Performed By: #### P SAS1 #### [facility] CLIA [id number] [address] [place] [address] [place] Nucleated RBC/100 WBC (Bld) [Ratio] 0.0 /100 WBC Normal [facility] Comment on above: Order Comment: Speci men Type: BLOOD SPECIMEN Ordering Facility: [facility] Address: [address] [place] [address] Performed By: #### P SAS1 #### [facility] CLIA [id number] [address] [place] [address] [place] Platelet mean volume (Bld) [Entitic vol] 10.2 fL Normal 9.0-12.7 [facility] Comment on above: Order Comment: Speci men Type: BLOOD SPECIMEN Ordering Facility: [facility] Address: [address] [place] [address] Performed By: #### P SAS1 #### [facility] CLIA [id number] [address] [place] [address] [place] Platelets (Bld) [#/Vol] 428 10*3/uL High 150-400 [facility] Comment on above: Order Comment: Speci men Type: BLOOD SPECIMEN Ordering Facility: [facility] Address: [address] [place] [address] Performed By: #### P SAS1 #### [facility] CLIA [id number] [address] [place] [address] [place] RBC (Bld) [#/Vol] 4.94 10*6/uL Normal 4.20-6.00 [facility] Comment on above: Order Comment: Speci men Type: BLOOD SPECIMEN Ordering Facility: [facility] Address: [address] [place] [address] Performed By: #### P SAS1 #### [facility] CLIA [id number] [address] [place] [address] [place] WBC (Bld) [#/Vol] 9.75 10*3/uL Normal 3.70-11.00 [facility] Comment on above: Order Comment: Speci men Type: BLOOD SPECIMEN Ordering Facility: [facility] Address: [address] [place] [address] Performed By: #### P SAS1 #### [facility] CLIA [id number] [address] [place], [place] [address] [facility] CNOVon 04-30-2025 [facility] ----- KRISSYCASH WEAVER ([id number]) 1965 M [facility] Date Time Provider Department 04/30/25 1:30 PM AWILDA GARCIA [facility] During your visit today, we recorded the following information about you: Temperature Pulse Blood pressure Weight 97.3 degrees 77/minute 136/92 81.7 kg Height 1.727 m Awilda Garcia MD 04/30/2025 2:15 PM Signed Subjective Cash David Michel is a 60 year old male. [...] Kidney Disease Mother Heart disease Father 83 DC at age 83 Hypertension Father Parkinson?s Disease [...] normal. Beh (more content not included)... Normal [facility] Comprehensive metabolic 2000 panelon 04-30-2025 Albumin [Mass/Vol] 4.2 g/dL Normal 3.9-4.9 [facility] Comment on above: Order Comment: Speci lee Type: BLOOD SPECIMEN Ordering Facility: [facility] Address: [address] [place] [address] Performed By: #### P SAS1 #### [facility] CLIA [id number] [address] [place] [address] [place] [address] [place] ALP [Catalytic activity/Vol] 57 U/L Normal 38-113 [facility] Comment on above: Order Comment: Speci men Type: BLOOD SPECIMEN Ordering Facility: [facility] Address: [address] [place] [address] Performed By: #### P SAS1 #### [facility] CLIA [id number] [address] [place] [address] [place] ALT [Catalytic activity/Vol] 17 U/L Normal 10-54 [facility] Comment on above: Order Comment: Speci men Type: BLOOD SPECIMEN Ordering Facility: [facility] Address: [address] [place] [address] Performed By: #### P SAS1 #### [facility] CLIA [id number] [address] [place] [address] [place] Anion gap [Moles/Vol] 11 mmol/L Normal 8-15 [facility] Comment on above: Order Comment: Speci men Type: BLOOD SPECIMEN Ordering Facility: [facility] Address: [address] [place] [address] Performed By: #### P SAS1 #### [facility] CLIA [id number] [address] [place] [address] [place] AST [Catalytic activity/Vol] 20 U/L Normal 14-40 [facility] Comment on above: Order Comment: Speci men Type: BLOOD SPECIMEN Ordering Facility: [facility] Address: [address] [place] [address] Performed By: #### P SAS1 #### [facility] CLIA [id number] [address] [place] [address] [place] Bilirubin [Mass/Vol] 0.4 mg/dL Normal 0.2-1.3 [facility] Comment on above: Order Comment: Speci men Type: BLOOD SPECIMEN Ordering Facility: [facility] Address: [address] [place] [address] Performed By: #### P SAS1 #### [facility] CLIA [id number] [address] [place] [address] [place] Calcium [Mass/Vol] 9.3 mg/dL Normal 8.5-10.2 [facility] Comment on above: Order Comment: Speci men Type: BLOOD SPECIMEN Ordering Facility: [facility] Address: [address] [place] [address] Performed By: #### P SAS1 #### [facility] CLIA [id number] [address] [place] [address] [place] Chloride [Moles/Vol] 105 mmol/L Normal 98-107 [facility] Comment on above: Order Comment: Speci men Type: BLOOD SPECIMEN Ordering Facility: [facility] Address: [address] [place] [address] Performed By: #### P SAS1 #### [facility] CLIA [id number] [address] [place] [address] [place] CO2 [Moles/Vol] 23 mmol/L Normal 22-30 [facility] Comment on above: Order Comment: Speci men Type: BLOOD SPECIMEN Ordering Facility: [facility] Address: [address] [place] [address] Performed By: #### P SAS1 #### [facility] CLIA [id number] [address] [place] [address] [place] Creatinine [Mass/Vol] 0.99 mg/dL Normal 0.73-1.22 [facility] Comment on above: Order Comment: Speci men Type: BLOOD SPECIMEN Ordering Facility: [facility] Address: [address] [place] [address] Performed By: #### P SAS1 #### [facility] CLIA [id number] [address] [place] [address] [place] eGFRcr SerPlBld CKD-EPI 2020 86 mL/min/1.73m??? Normal >=60 [facility] Comment on above: Order Comment: Speci men Type: BLOOD SPECIMEN Ordering Facility: [facility] Address: [address] [place] [address] Result Comment: Marie mated Glomerular Filtration Rate [...] accurately reflect actual GFR. Performed By: #### P SAS1 #### [facility] CLIA [id number] [address] [place] [address] [place] Glucose [Mass/Vol] 88 mg/dL Normal 74-99 [facility] Comment on above: Order Comment: Carlo howard Type: BLOOD SPECIMEN Ordering Facility: [facility] Address: [address] [place] [address] Result Comment: The [place] Diabetes Association (ADA) provides guidance for cutoff [...] Standards of Medical Care in Diabetes 2016, [place] Diabetes Association. Diabetes Care. 2016.39(Suppl 1). Performed By: #### P SAS1 #### [facility] CLIA [id number] [address] [place] [address] [place] Potassium [Moles/Vol] 4.6 mmol/L Normal 3.7-5.1 [facility] Comment on above: Order Comment: Carlo howard Type: BLOOD SPECIMEN Ordering Facility: [facility] Address: [address] [place] [address] Performed By: #### P SAS1 #### [facility] CLIA [id number] [address] [place], [place] [address] [place] Protein [Mass/Vol] 7.6 g/dL Normal 6.3-8.0 [facility] Comment on above: Order Comment: Carlo howard Type: BLOOD SPECIMEN Ordering Facility: [facility] Address: [address] [place] [address] Performed By: #### P SAS1 #### [facility] CLIA [id number] [address] [place] [address] [place] Sodium [Moles/Vol] 139 mmol/L Normal 136-144 [facility] Comment on above: Order Comment: Speci men Type: BLOOD SPECIMEN Ordering Facility: [facility] Address: [address] [place] [address] Performed By: #### P SAS1 #### [facility] CLIA [id number] [address] [place] [address] [place] Urea nitrogen [Mass/Vol] 16 mg/dL Normal 9-24 [facility] Comment on above: Order Comment: Speci men Type: BLOOD SPECIMEN Ordering Facility: [facility] Address: [address] [place] [address] Performed By: #### P SAS1 #### [facility] CLIA [id number] [address] [place] [address] [place] HbA1c (Bld)on 04-30-2025 Average glucose Estimated from glycated hemoglobin (Bld) [Mass/Vol] 120 mg/dL Normal [facility] Comment on above: Order Comment: Speci men Type: BLOOD SPECIMEN Ordering Facility: [facility] Address: [address] [place] [address] Result Comment: eAG: (Estimated average glucose) is a calculated value from HgbA1c and is it sales representative of the average blood glucose level in the last 2-3 month period. Performed By: #### P SAS1 #### [facility] CLIA [id number] [address] [place] [address] [place] HbA1c (Bld) [Mass fraction] 5.8 % High 4.3-5.6 [facility] Comment on above: Order Comment: Speci men Type: BLOOD SPECIMEN Ordering Facility: [facility] Address: [address] [place] [address] Result Comment: Amer [place] Diabetes Association guidelines indicate that patients with HgbA1c in the range 5.7-6.4% are at increased risk for development of diabetes, and intervention by lifestyle modification may be beneficial. HgbA1c greater or equal to 6.5% is considered diagnostic of diabetes. Performed By: #### P SAS1 #### [facility] CLIA [id number] [address] [place] [address] [place] Lipid 1996 panelon 5 Cholesterol [Mass/Vol] 107 mg/dL Normal <200 [facility] Comment on above: Order Comment: Carlo howard Type: BLOOD SPECIMEN Ordering Facility: [facility] Address: [address] [place] [address] Result Comment: <200 mg/dL, Desirable 200-239 mg/dL, Borderline high >239 mg/dL, High Performed By: #### P SAS1 #### [facility] CLIA [id number] [address] [place] [address] Cholesterol in HDL [Mass/Vol] 39 mg/dL Low >39 [facility] Comment on above: Order Comment: Carlo howard Type: BLOOD SPECIMEN Ordering Facility: [facility] Address: [address] [place] [address] Result Comment: 40-5 9 mg/dL, Acceptable >59 mg/dL, High: Negative risk factor for coronary heart disease <40 mg/dL, Low: Positive risk factor for coronary heart disease Performed By: #### P SAS1 #### [facility] CLIA [id number] [address] [place] [address] Cholesterol in LDL [Mass/Vol] 55 mg/dL Normal <100 [facility] Comment on above: Order Comment: Carlo howard Type: BLOOD SPECIMEN Ordering Facility: [facility] Address: [address] [place] [address] Result Comment: <100 mg/dL, Optimal 100-129 mg/dL, Near optimal/above optimal 130-159 mg/dL, Borderline high 160-189 mg/dL, High >189 mg/dL, Very high Secondary prevention optimal LDL Cholesterol levels are recommended to be <70 mg/dL LDL cholesterol is calculated using the Cochran-NIH equation. Performed By: #### P SAS1 #### [facility] CLIA [id number] [address] [place] [address] [place] Cholesterol in LDL/Cholesterol in HDL [Mass ratio] 1.41 {ratio} Normal <2.54 [facility] Comment on above: Order Comment: Carlo howard Type: BLOOD SPECIMEN Ordering Facility: [facility] Address: [address] [place] [address] Result Comment: Refe rence: 1. National Cholesterol Education Program ATP III Guideline At-A-Glance Quick Desk Reference: National Heart, Lung, and Blood [place]. National Institutes of Health. 2001: NIH Publication No. 01-3305. 2. An International Atherosclerosis Society position paper: global recommendations for the management of dyslipidemia: executive summary, Atherosclerosis. 2014: 232(2):410-413. Performed By: #### P SAS1 #### [facility] CLIA [id number] [address] [place] [address] [place] Cholesterol in VLDL [Mass/Vol] 8 mg/dL Normal <30 [facility] Comment on above: Order Comment: Carlo howard Type: BLOOD SPECIMEN Ordering Facility: [facility] Address: [address] [place] [address] Performed By: #### P SAS1 #### [facility] [place] [id number] [address] [place] [address] [place] Cholesterol non HDL [Mass/Vol] 68 mg/dL Normal <130 [facility] Comment on above: Order Comment: Carlo howard Type: BLOOD SPECIMEN Ordering Facility: [facility] Address: [address] [place] [address] Result Comment: <130 mg/dL, Optimal 130-159 mg/dL, Near optimal/above optimal 160-189 mg/dL, Borderline high 190-219 mg/dL, High >219 mg/dL, Very high Secondary prevention optimal non HDL Cholesterol levels are recommended to be <100 mg/dL Performed By: #### P SAS1 #### [facility] CLIA [id number] [address] [place] [address] [place] Cholesterol.total/Cho lesterol in HDL [Mass ratio] 2.74 {ratio} Normal <5.10 [facility] Comment on above: Order Comment: Speci men Type: BLOOD SPECIMEN Ordering Facility: [facility] Address: [address] [place] [address] Performed By: #### P SAS1 #### [facility] CLIA [id number] [address] [place] [address] [place] FASTING TIME 2 hrs Normal [facility] Comment on above: Order Comment: Speci men Type: BLOOD SPECIMEN Ordering Facility: [facility] Address: [address] [place] [address] Performed By: #### P SAS1 #### [facility] CLIA [id number] [address] [place] [address] [place] Triglyceride [Mass/Vol] 56 mg/dL Normal <150 [facility] Comment on above: Order Comment: Speci men Type: BLOOD SPECIMEN Ordering Facility: [facility] Address: [address] [place] [address] Result Comment: <150 mg/dL, Normal 150-199 mg/dL, Borderline high 200-499 mg/dL, High >499 mg/dL, Very high Performed By: #### P SAS1 #### [facility] CLIA [id number] [address] [place] [address] [place] PSA/PROSTATE SPECIFIC ANTIGE N SCREENINGon 04-30-2025 Prostate specific Ag [Mass/Vol] 0.78 ng/mL Normal <2.60 [facility] Comment on above: Order Comment: Speci men Type: BLOOD SPECIMEN Ordering Facility: [facility] Address: [address] [place] [address] Result Comment: Tota l PSA test methodology used is the Electrochemiluminescence Immunoassay by [employer]. Total PSA values by differing methodologies cannot be interchanged. Performed By: #### P SAS1 #### [facility] CLIA [id number] [address] [facility] [address] STATES OF [facility] L499.0043on 04-15-2025 Trop T High Sen Normal <=22 [facility] Comment on above: Result Comment: Canc elled via OM: Order cancelled - Patient discharged Performed By: #### L 500.2500, L100.0100 #### [facility] [address] [facility], [address] 12 Lead EKGon 04-14-2025 12 Lead EKG [facility] [address] [place] [address] 12 Lead EKG 04/14/252005 MR#: [id number] Acct: [id number] Name: CASH MICHEL Rep #: [id number] : 1965 60 From: Mike Unger MD [...] ) Borderline ECG Confirmed by Mike Unger ([id number]), commercial production editor AUDREY PEPPER ([id number]) on 04/16/2025 11:21:57 AM Referred By: ELIZABETH Confirmed By: Mike Unger 04/16/25 1122 Date Mike Unger MD CC: [employer] Shreya Cat; Dr. Harrison Mandujano DO Signed Normal [facility] Absolute lymphocyte countOrd ered By: Harrison Mandujano on 04-14-2025 Lymphocytes Auto (Unsp spec) [#/Vol] 2.35 10*3/uL 0.83-4.51 [facility] Absolute neutrophil countOrd ered By: Harrison Mandujano on 04-14-2025 Neutrophils (Bld) [#/Vol] 5.4 10*3/uL 2.0-7.7 [facility] Anion gap in Serum or Plasma Ordered By: Harrison Mandujano on 04-14-2025 Anion gap [Moles/Vol] 13 mmol/L 02-13 [facility] Automated lymphocyte count a s percentage of total leukocytesOrdered By: Harrison Mandujano on 04-14-2025 Lymphocytes/100 WBC Auto (Unsp spec) 26.6 % [facility] BUN/creatinine ratioOrdered By: Harrison Mandujano on 04-14-2025 Urea nitrogen/Creatinine [Mass ratio] 11.7 mg/mg 07-21 [facility] Basic Metabolic Profile (BMP )on 04-14-2025 BUN/CRE 11.7 RATIO Normal 07-21 [facility] Comment on above: Performed By: #### L 501.4021, L100.0100, L500.2500 #### [facility] [address] [place], [address] Calcium [Mass/Vol] 8.8 mg/dL Normal 7.6-11.0 [facility] Comment on above: Performed By: #### L 501.4021, L100.0100, L500.2500 #### [facility] [address] [place], [address] Chloride [Moles/Vol] 106 mmol/L Normal 98-108 [facility] Comment on above: Performed By: #### L 501.4021, L100.0100, L500.2500 #### [facility] [address] [place], [address] CO2 [Moles/Vol] 19.5 mmol/L Low 21.0-32.0 [facility] Comment on above: Performed By: #### L 501.4021, L100.0100, L500.2500 #### [facility] [address] [place], [address] Creatinine [Mass/Vol] 1.04 mg/dL Normal 0.70-1.20 [facility] Comment on above: Performed By: #### L 501.4021, L100.0100, L500.2500 #### [facility] [address] [place], [address] ECRCL 77.90 ml/min Normal 50-250 [facility] Comment on above: Performed By: #### L 501.4021, L100.0100, L500.2500 #### [facility] [address] [place], [address] GAP 13 Normal 5-15 [facility] Comment on above: Performed By: #### L 501.4021, L100.0100, L500.2500 #### [facility] [address] [place], [address] GFR/1.73 sq M.predicted among non-blacks MDRD (S/P/Bld) [Vol rate/Area] 81 mL/min/{1.73_m2} Normal >60 [facility] Comment on above: Result Comment: mL/m in/1.73m2 CKD-EPI Creatinine Equation (2020) Performed By: #### L 501.4021, L100.0100, L500.2500 #### [facility] [address] [place], [address] Glucose [Mass/Vol] 102 mg/dL High 70-99 [facility] Comment on above: Performed By: #### L 501.4021, L100.0100, L500.2500 #### [facility] [address] [place], [address] Potassium [Moles/Vol] 4.0 mmol/L Normal 3.3-5.1 [facility] Comment on above: Result Comment: Hemo lysis present, Results??could be affected. ?? Performed By: #### L 501.4021, L100.0100, L500.2500 #### [facility] [address] [place], [address] Sodium [Moles/Vol] 138 mmol/L Normal 133-145 [facility] Comment on above: Performed By: #### L 501.4021, L100.0100, L500.2500 #### [facility] [address] [place], [address] Urea nitrogen [Mass/Vol] 12 mg/dL Normal 4-19 [facility] Comment on above: Performed By: #### L 501.4021, L100.0100, L500.2500 #### [facility] [address] [place], [address] Basophil percentageOrdered B y: Harrison Mandujano on 04-14-2025 Basophils/100 WBC (Bld) 0.6 % 0-1 [facility] CBC + diff autoon 04-14-2025 CBC W Auto Differential panel (Bld) [facility] CBC W/Diff, Automatedon 04-01 Absolute Lymph 2.35 X10 3/uL Normal 0.83-4.51 [facility] Comment on above: Performed By: #### L 501.4021, L100.0100, L500.2500 #### [facility] [address] [place], [address] Absolute Neut 5.4 X10 3/uL Normal 2.0-7.7 [facility] Comment on above: Performed By: #### L 501.4021, L100.0100, L500.2500 #### [facility] [address] [place], [address] Basophils/100 WBC (Bld) 0.6 % Normal 0-1 [facility] Comment on above: Performed By: #### L 501.4021, L100.0100, L500.2500 #### [facility] [address] [place], [address] Eosinophils/100 WBC (Bld) 2.0 % Normal 0-5 [facility] Comment on above: Performed By: #### L 501.4021, L100.0100, L500.2500 #### [facility] [address] [place], [address] Erythrocyte distribution width (RBC) [Ratio] 16.9 % High 11.6-14.6 [facility] Comment on above: Performed By: #### L 501.4021, L100.0100, L500.2500 #### [facility] [address] [place], [address] Hematocrit (Bld) [Volume fraction] 30.4 % Low 40-54 [facility] Comment on above: Performed By: #### L 501.4021, L100.0100, L500.2500 #### [facility] [address] [place], [address] Hemoglobin (Bld) [Mass/Vol] 9.1 g/dL Low 13.0-16.5 [facility] Comment on above: Performed By: #### L 501.4021, L100.0100, L500.2500 #### [facility] [address] [place], [address] IG% 0.500 Normal 0.0-0.9 [facility] Comment on above: Result Comment: IG% - Immature Granulocytes (promyelocytes, myelocytes and metamyelocytes) > 1% indicates that a LEFT SHIFT is Present. Performed By: #### L 501.4021, L100.0100, L500.2500 #### [facility] [address] [place], [address] Lymphocytes/100 WBC (Bld) 26.6 % Normal 19-41 [facility] Comment on above: Performed By: #### L 501.4021, L100.0100, L500.2500 #### [facility] [address] [place], [address] MCH (RBC) [Entitic mass] 21.5 pg Low 27.0-32.0 [facility] Comment on above: Performed By: #### L 501.4021, L100.0100, L500.2500 #### [facility] [address] [place], [address] MCHC (RBC) [Mass/Vol] 29.9 g/dL Low 32-36 [facility] Comment on above: Performed By: #### L 501.4021, L100.0100, L500.2500 #### [facility] [address] [place], [address] MCV (RBC) [Entitic vol] 71.9 fL Low 80-94 [facility] Comment on above: Performed By: #### L 501.4021, L100.0100, L500.2500 #### [facility] [address] [place], [address] Monocytes/100 WBC (Bld) 9.3 % Normal 0-10 [facility] Comment on above: Performed By: #### L 501.4021, L100.0100, L500.2500 #### [facility] [address] [place], [address] Neutrophils/100 WBC (Bld) 61.0 % Normal 47-70 [facility] Comment on above: Performed By: #### L 501.4021, L100.0100, L500.2500 #### [facility] [address] [place], [address] Nucleated RBC (Bld) [#/Vol] 0 10*3/uL Normal 0-5 [facility] Comment on above: Performed By: #### L 501.4021, L100.0100, L500.2500 #### [facility] [address] [place], [address] Platelet mean volume (Bld) [Entitic vol] 9.6 fL Normal 6.2-12.0 [facility] Comment on above: Performed By: #### L 501.4021, L100.0100, L500.2500 #### [facility] [address] [place], [address] Platelets (Bld) [#/Vol] 350 10*3/uL Normal 150-450 [facility] Comment on above: Performed By: #### L 501.4021, L100.0100, L500.2500 #### [facility] [address] [place], [address] RBC (Bld) [#/Vol] 4.23 10*6/uL Low 4.6-6.2 [facility] Comment on above: Performed By: #### L 501.4021, L100.0100, L500.2500 #### [facility] [address] [place], [address] RDW SD 43.0 fl Normal 35.1-43.9 [facility] Comment on above: Performed By: #### L 501.4021, L100.0100, L500.2500 #### [facility] [address] [place], [address] WBC (Bld) [#/Vol] 8.9 10*3/uL Normal 4.4-11.0 [facility] Comment on above: Performed By: #### L 501.4021, L100.0100, L500.2500 #### [facility] [address] [place], [address] Absolute Neut Normal 2.0-7.7 [facility] Comment on above: Result Comment: This specimen has been REJECTED due to Laboratory criteria: [quincy LOPEZ]. CARLA DODGE has been notified of need of recollection. 04/14/252107 Rupinder Abhinav Performed By: #### L 501.4021, L100.0100, L500.2500 #### [facility] [address] [place], [address] HCT Normal 40-54 [facility] Comment on above: Result Comment: This specimen has been REJECTED due to Laboratory criteria: [quincy LOPEZ]. CARLANICKI DODGE has been notified of need of recollection. 04/14/252107 Rupinder Abhinav Performed By: #### L 501.4021, L100.0100, L500.2500 #### [facility] [address] [place], [address] HGB Normal 13.0-16.5 [facility] Comment on above: Result Comment: This specimen has been REJECTED due to Laboratory criteria: [quincy LOPEZ]. CARLA HARARTUR has been notified of need of recollection. 04/14/252107 Rupinder Abhinav Performed By: #### L 501.4021, L100.0100, L500.2500 #### [facility] [address] [place], [address] MCH Normal 27.0-32.0 [facility] Comment on above: Result Comment: This specimen has been REJECTED due to Laboratory criteria: [quincy LOPEZ]. CARLA DAR has been notified of need of recollection. 04/14/252107 Rupinder Abhinav Performed By: #### L 501.4021, L100.0100, L500.2500 #### [facility] [address] [place], [address] MCHC Normal 32-36 [facility] Comment on above: Result Comment: This specimen has been REJECTED due to Laboratory criteria: [quincy LOPEZ]. CARLA HARARTUR has been notified of need of recollection. 04/14/252107 Rupinder Abhinav Performed By: #### L 501.4021, L100.0100, L500.2500 #### [facility] [address] [place], [address] MCV Normal 80-94 [facility] Comment on above: Result Comment: This specimen has been REJECTED due to Laboratory criteria: [quincy LOPEZ]. CARLA DODGE has been notified of need of recollection. 04/14/252107 Rupinder Abhinav Performed By: #### L 501.4021, L100.0100, L500.2500 #### [facility] [address] [place], [address] NEUT% Normal 47-70 [facility] Comment on above: Result Comment: This specimen has been REJECTED due to Laboratory criteria: [quincy LOPEZ]. CARLA DODGE has been notified of need of recollection. 04/14/252107 Rupinder Abhinav Performed By: #### L 501.4021, L100.0100, L500.2500 #### [facility] [address] [place], [address] PLT Normal 150-450 [facility] Comment on above: Result Comment: This specimen has been REJECTED due to Laboratory criteria: [quincy LOPEZ]. CARLA DODGE has been notified of need of recollection. 04/14/252107 Rupinder Abhinav Performed By: #### L 501.4021, L100.0100, L500.2500 #### [facility] [address] [place], [address] RBC Normal 4.6-6.2 [facility] Comment on above: Result Comment: This specimen has been REJECTED due to Laboratory criteria: [quincy LOPEZ]. CARLA DODGE has been notified of need of recollection. 04/14/252107 Rupinder Abhinav Performed By: #### L 501.4021, L100.0100, L500.2500 #### [facility] [address] [place], [address] RDW CV Normal 11.6-14.6 [facility] Comment on above: Result Comment: This specimen has been REJECTED due to Laboratory criteria: [g JOHN]. CARLA DODGE has been notified of need of recollection. 04/14/252107 Rupinder La Performed By: #### L 501.4021, L100.0100, L500.2500 #### [facility] [address] [place], [address] RDW SD Normal 35.1-43.9 [facility] Comment on above: Result Comment: This specimen has been REJECTED due to Laboratory criteria: [g LABCAMI]. CARLA DODGE has been notified of need of recollection. 04/14/252107 Rupinder La Performed By: #### L 501.4021, L100.0100, L500.2500 #### [facility] [address] [place], [address] WBC Normal 4.4-11.0 [facility] Comment on above: Result Comment: This specimen has been REJECTED due to Laboratory criteria: [g LABREPAULA]. CARLA DODGE has been notified of need of recollection. 04/14/252107 Rupinder La Performed By: #### L 501.4021, L100.0100, L500.2500 #### [facility] [address] [place], [address] Carbon dioxide, total [Moles /volume] in Central venous bloodOrdered By: Harrison Mandujano on 04-14-2025 CO2 [Moles/Vol] 19.5 mmol/L Low 21.0-32.0 [facility] Chest 1 View (Portable)on Chest 1 View (Portable) [facility] Imaging Services [address] [place] [address] Chest 1 View (Portable) MR#: [id number] Acct: [id number] Name: CASH MICHEL Rep #: [id number] : 1965 Gisselle Piedra From: Rich Joy PCP: ROBINA Anglin Status: REG ER Study: Chest 1 View (Portable) Date of Exam: 04/14/25 Exam# [id number] Ordering Dr: Harrison Mandujano DO PROCEDURE: CHEST 1 VIEW (PORTABLE) 04/14/2025 REASON FOR EXAM: CHEST PAIN TECHNIQUE: Frontal view of the chest. COMPARISON: 03/26/2025 FINDINGS: Mild pulmonary vascular congestion. Question mild interstitial edema. No focal consolidations. No pleural effusion or pneumothorax. Stable cardiomegaly. Unchanged hiatal hernia. RAD/Chest 1 View (Portable) IMPRESSION: Mild pulmonary vascular congestion and question mild interstitial edema. Stable mita-ql-mxdvnxus cardiomegaly. Unchanged hiatal hernia. No focal consolidations. Reading Location: [facility] CC: [employer] Shreya Cat; Dr. Harrison Mandujano DO Moth Proofer: Signed Normal [facility] Chloride assayOrdered By: Robin Mandujano on 04-14-2025 Chloride [Moles/Vol] 106 mmol/L 98-108 [facility] Emergency Department Summary on 04-14-2025 Emergency Department Summary [facility] Medical Records Department [address] [place] [address] Emergency Department Summary 04/14/25 MR#: [id number] Acct: [id number] Name: CASH MICHEL Rep #: [id number] : 1965 60 From: Harrison Mandujano DO PCP: ROBINA Anglin Status:DEP ER Location: [...] non-tender GI (more content not included)... Normal [facility] Eosinophil percentageOrdered By: Harrison Mandujano on 04-14-2025 Eosinophils/100 WBC (Bld) 2.0 % 0-5 [facility] Erythrocyte distribution wid th ratioOrdered By: Harrison Mandujano on 04-14-2025 Erythrocyte distribution width (RBC) [Ratio] 16.9 % High 11.6-14.6 [facility] Erythrocyte distribution wid th standard deviationOrdered By: Harrison Mandujano on 04-14-2025 Erythrocyte distribution width (RBC) [Ratio] 43.0 fl 35.1-43.9 [facility] Glomerular filtration rate ( GFR) estimation/1.73 sq m using serum, plasma, or whole bOrdered By: Harrison Mandujano on 04-14-2025 GFR/1.73 sq M.predicted among non-blacks MDRD (S/P/Bld) [Vol rate/Area] 81 mL/min/{1.73_m2} >60 [facility] Comment on above: mL/min/1.73m2 CKD-EP I Creatinine Equation (2020) Hematocrit Auto (Bld) [Volum e fraction]Ordered By: Harrison Mandujano on 04-14-2025 Hematocrit (Bld) [Volume fraction] 30.4 % Low 40-54 [facility] Hemoglobin measurementOrdere d By: Harrison Mandujano on 04-14-2025 Hemoglobin (Bld) [Mass/Vol] 9.1 g/dL Low 13.0-16.5 [facility] Immature granulocytes/100 WB C Auto (Bld)Ordered By: Harrison Mandujano on 04-14-2025 Immature granulocytes/100 WBC (Bld) 0.500 % 0.0-0.9 [facility] Comment on above: IG% - Immature Granu locytes (promyelocytes, myelocytes and metamyelocytes) > 1% indicates that a LEFT SHIFT is Present. L499.0042on 04-14-2025 Trop T High Sen 7 ng/L Normal <=22 [facility] Comment on above: Performed By: #### L 501.4021, L100.0100, L500.2500 #### [facility] [address] [place], [address] L501.4021on 04-14-2025 Trop T High Sen < 6 Normal <=22 [facility] Comment on above: Performed By: #### L 501.4021, L100.0100, L500.2500 #### [facility] [address] [facility] [place], [address] MCV (mean corpuscular volume ) determinationOrdered By: Harrison Mandujano on 04-14-2025 MCV (RBC) [Entitic vol] 71.9 fL Low 80-94 [facility] Mean corpuscular hemoglobin (MCH) determinationOrdered By: Harrison Mandujano on 04-14-2025 MCH (RBC) [Entitic mass] 21.5 pg Low 27.0-32.0 [facility] Mean corpuscular hemoglobin concentration (MCHC) determinationOrdered By: Harrison Mandujano on 04-14-2025 MCHC (RBC) [Mass/Vol] 29.9 g/dL Low 32-36 [facility] Mean platelet volume determi nationOrdered By: Harrison Mandujano on 04-14-2025 Platelet mean volume (Bld) [Entitic vol] 9.6 fL 6.2-12.0 [facility] Monocyte percentageOrdered B y: Harrison Mandujano on 04-14-2025 Monocytes/100 WBC (Bld) 9.3 % 0-10 [facility] Neutrophil percentageOrdered By: Harrison Mandujano on 04-14-2025 Neutrophils/100 WBC (Bld) 61.0 % 47-70 [facility] Nucleated red blood cell per centageOrdered By: Harrison Mandujano on 04-14-2025 Nucleated RBC/100 WBC (Bld) [Ratio] 0 % 0-5 [facility] Platelet countOrdered By: Robin Mandujano on 04-14-2025 Platelets (Bld) [#/Vol] 350 10*3/uL 150-450 [facility] Potassium measurement (mass/ volume)Ordered By: Harrison Mandujano on 04-14-2025 Potassium (Unsp spec) [Mass/Vol] 4.0 mmol/L 3.3-5.1 [facility] Comment on above: Hemolysis present, R esults could be affected. RBC Auto (Bld) [#/Vol]Ordere d By: Harrison Mandujano on 04-14-2025 RBC (Bld) [#/Vol] 4.23 10*6/uL Low 4.6-6.2 [facility] Serum creatinine measurement (mass/volume)Ordered By: Harrison Mandujano on 04-14-2025 Creatinine [Mass/Vol] 1.04 mg/dL 0.70-1.20 [facility] Serum glucose measurement (m ass/volume)Ordered By: Harrison Mandujano on 04-14-2025 Glucose [Mass/Vol] 102 mg/dL High 70-99 [facility] Serum or plasma calcium valerie urement (mass/volume)Ordered By: Harrison Mandujano on 04-14-2025 Calcium [Mass/Vol] 8.8 mg/dL 7.6-11.0 [facility] Serum or plasma urea nitroge n measurement (mass/volume)Ordered By: Harrison Mandujano on 04-14-2025 Urea nitrogen [Mass/Vol] 12 mg/dL 4-19 [facility] Sodium levelOrdered By: Harrison Mandujano on 04-14-2025 Sodium [Moles/Vol] 138 mmol/L 133-145 [facility] Stool Occult Blood iFOBon STOB Negative Normal [facility] Comment on above: Performed By: #### L 501.4021, L100.0100, L500.2500 #### [facility] [address] [place], [place], [address] Stool gastrointestinal hemog lobin detection by immunologic methodOrdered By: Harrison Mandujano on 04-14-2025 Lower GI hemoglobin IA Ql (Stl) [facility] Troponin T.cardiac [Mass/vol ume] in Serum or Plasma by High sensitivity methodOrdered By: Harrison Mandujano on 04-14-2025 Troponin T.cardiac High sensitivity method [Mass/Vol] 7 ng/L <22 [facility] Troponin T.cardiac High sensitivity method [Mass/Vol] < 6 ng/L <22 [facility] White blood cell (WBC) count Ordered By: Harrison Mandujano on 04-14-2025 WBC (Bld) [#/Vol] 8.9 10*3/uL 4.4-11.0 [facility] Culture, Blood (WB)on 2024 CUB Blood cultures x2, f rom two different sites No growth in 5 days. Normal [facility] Comment on above: Performed By: #### L 500.2500, L100.0100 #### [facility] [address] [place], [place], [id number] Urine Cultureon 03-27-2025 URC Culture exhibits no growth. Normal [facility] Comment on above: Performed By: #### L 500.2500, L100.0100 #### [facility] [place], [address] Absolute lymphocyte countOrd ered By: Gavino Jeffery on 03-26-2025 Lymphocytes Auto (Unsp spec) [#/Vol] 1.77 10*3/uL 0.83-4.51 [facility] Absolute neutrophil countOrd ered By: Gavino Jeffery on 03-26-2025 Neutrophils (Bld) [#/Vol] 6.7 10*3/uL 2.0-7.7 [facility] Activated partial thrombopla stin time (aPTT) in platelet poor plasma by coagulation aOrdered By: Gavino Jeffery on 03-26-2025 aPTT Coag (PPP) [Time] 24.2 s 24.1-36.2 [facility] Anion gap in Serum or Plasma Ordered By: Gavino Jeffery on 03-26-2025 Anion gap [Moles/Vol] 13 mmol/L 5-15 [facility] Automated lymphocyte count a s percentage of total leukocytesOrdered By: Gavino Jeffery on 03-26-2025 Lymphocytes/100 WBC Auto (Unsp spec) 18.2 % Low 19-41 [facility] BUN/creatinine ratioOrdered By: Gavino Jeffery on 03-26-2025 Urea nitrogen/Creatinine [Mass ratio] 13.2 mg/mg 10-20 [facility] Basophil percentageOrdered B y: Gavino Jeffery on 03-26-2025 Basophils/100 WBC (Bld) 0.5 % 0-1 [facility] Bilirubin Test strip Ql (U)O rdered By: Gavino Jeffery on 03-26-2025 Bilirubin Ql (U) Negative Negative [facility] Bilirubin, totalOrdered By: Gavino Jeffery on 03-26-2025 Bilirubin [Mass/Vol] 0.37 mg/dL 0.00-1.30 [facility] Blood cultureOrdered By: Jonn Jeffery on 03-26-2025 Bacteria identified Cx Nom (Bld) No growth in 5 days. [facility] Bacteria identified Cx Nom (Bld) No growth in 5 days. [facility] Brain/Head without Contrasto n 03-26-2025 Brain/Head without Contrast [facility] Imaging Services [address] [place] [address] Brain/Head without Contrast MR#: [id number] Acct: [id number] Name: CASH MICHEL Rep #: [id number] : 1965 M 59 From: Mike bailey MD PCP: Shreya Cat [employer]-C Status: REG ER Study: Brain/Head without Contrast Date of Exam: 03/03 02/23 Exam# [id number] Ordering Dr: Gavino Jeffery DO PROCEDURE: BRAIN/HEAD [...] CHRONIC CHANGES. NO ACUTE FINDINGS. Reading Location: [id number] CC: [employer]ADER-[employer] Shreya Cat; Dr. Gavino Jeffery DO Moth Proofer: Signed Normal [facility] CBC W/Diff, Automatedon 03-03 Absolute Lymph 1.77 X10 3/uL Normal 0.83-4.51 [facility] Comment on above: Performed By: #### M 200.1000, L100.0100, L500.4050, L503.6005, L501.4021, L300.4310, L300.3900 #### [facility] [address] [place], [address] Absolute Neut 6.7 X10 3/uL Normal 2.0-7.7 [facility] Comment on above: Performed By: #### M 200.1000, L100.0100, L500.4050, L503.6005, L501.4021, L300.4310, L300.3900 #### [facility] [address] [place], [address] Basophils/100 WBC (Bld) 0.5 % Normal 0-1 [facility] Comment on above: Performed By: #### M 200.1000, L100.0100, L500.4050, L503.6005, L501.4021, L300.4310, L300.3900 #### [facility] [address] [place], [address] Eosinophils/100 WBC (Bld) 2.3 % Normal 0-5 [facility] Comment on above: Performed By: #### M 200.1000, L100.0100, L500.4050, L503.6005, L501.4021, L300.4310, L300.3900 #### [facility] [address] [place], [address] Erythrocyte distribution width (RBC) [Ratio] 17.1 % High 11.6-14.6 [facility] Comment on above: Performed By: #### M 200.1000, L100.0100, L500.4050, L503.6005, L501.4021, L300.4310, L300.3900 #### [facility] [address] [place], [address] Hematocrit (Bld) [Volume fraction] 35.2 % Low 40-54 [facility] Comment on above: Performed By: #### M 200.1000, L100.0100, L500.4050, L503.6005, L501.4021, L300.4310, L300.3900 #### [facility] [address] [place], [address] Hemoglobin (Bld) [Mass/Vol] 10.4 g/dL Low 13.0-16.5 [facility] Comment on above: Performed By: #### M 200.1000, L100.0100, L500.4050, L503.6005, L501.4021, L300.4310, L300.3900 #### [facility] [address] [place], [address] IG% 0.300 Normal 0.0-0.9 [facility] Comment on above: Result Comment: IG% - Immature Granulocytes (promyelocytes, myelocytes and metamyelocytes) > 1% indicates that a LEFT SHIFT is Present. Performed By: #### M 200.1000, L100.0100, L500.4050, L503.6005, L501.4021, L300.4310, L300.3900 #### [facility] [address] [place], [address] Lymphocytes/100 WBC (Bld) 18.2 % Low 19-41 [facility] Comment on above: Performed By: #### M 200.1000, L100.0100, L500.4050, L503.6005, L501.4021, L300.4310, L300.3900 #### [facility] [address] [place], [address] MCH (RBC) [Entitic mass] 21.2 pg Low 27.0-32.0 [facility] Comment on above: Performed By: #### M 200.1000, L100.0100, L500.4050, L503.6005, L501.4021, L300.4310, L300.3900 #### [facility] [address] [place], [address] MCHC (RBC) [Mass/Vol] 29.5 g/dL Low 32-36 [facility] Comment on above: Performed By: #### M 200.1000, L100.0100, L500.4050, L503.6005, L501.4021, L300.4310, L300.3900 #### [facility] [address] [place], [address] MCV (RBC) [Entitic vol] 71.8 fL Low 80-94 [facility] Comment on above: Performed By: #### M 200.1000, L100.0100, L500.4050, L503.6005, L501.4021, L300.4310, L300.3900 #### [facility] [address] [place], [address] Monocytes/100 WBC (Bld) 9.9 % Normal 0-10 [facility] Comment on above: Performed By: #### M 200.1000, L100.0100, L500.4050, L503.6005, L501.4021, L300.4310, L300.3900 #### [facility] [address] [place], [address] Neutrophils/100 WBC (Bld) 68.8 % Normal 47-70 [facility] Comment on above: Performed By: #### M 200.1000, L100.0100, L500.4050, L503.6005, L501.4021, L300.4310, L300.3900 #### [facility] [address] [place], [address] Nucleated RBC (Bld) [#/Vol] 0 10*3/uL Normal 0-5 [facility] Comment on above: Performed By: #### M 200.1000, L100.0100, L500.4050, L503.6005, L501.4021, L300.4310, L300.3900 #### [facility] [address] [place], [address] Platelet mean volume (Bld) [Entitic vol] 10.1 fL Normal 6.2-12.0 [facility] Comment on above: Performed By: #### M 200.1000, L100.0100, L500.4050, L503.6005, L501.4021, L300.4310, L300.3900 #### [facility] [address] [place], [address] Platelets (Bld) [#/Vol] 351 10*3/uL Normal 150-450 [facility] Comment on above: Performed By: #### M 200.1000, L100.0100, L500.4050, L503.6005, L501.4021, L300.4310, L300.3900 #### [facility] [address] [place], [address] RBC (Bld) [#/Vol] 4.90 10*6/uL Normal 4.6-6.2 [facility] Comment on above: Performed By: #### M 200.1000, L100.0100, L500.4050, L503.6005, L501.4021, L300.4310, L300.3900 #### [facility] [address] [place], [address] RDW SD 43.3 fl Normal 35.1-43.9 [facility] Comment on above: Performed By: #### M 200.1000, L100.0100, L500.4050, L503.6005, L501.4021, L300.4310, L300.3900 #### [facility] [address] [place], [address] WBC (Bld) [#/Vol] 9.7 10*3/uL Normal 4.4-11.0 [facility] Comment on above: Performed By: #### M 200.1000, L100.0100, L500.4050, L503.6005, L501.4021, L300.4310, L300.3900 #### [facility] [address] [place], [address] Carbon dioxide, total [Moles /volume] in Central venous bloodOrdered By: Gavino Jeffery on 03-26-2025 CO2 [Moles/Vol] 20.5 mmol/L Low 21.0-32.0 [facility] Chest PA and Lateralon 03-26 Chest PA and Lateral [facility] Imaging Services [address] [place] [address] Chest PA and Lateral MR#: [id number] Acct: [id number] Name: CASH MICHEL Rep #: [id number] : 1965 M 59 From: Sebastian Joy PCP: ROBINA Anglin Status: REG ER Study: Chest PA and Lateral Date of Exam: 03/26/25 Exam# [id number] Ordering Dr: Gavino Jeffery DO PROCEDURE: CHEST PA AND LATERAL 03/26/2025 REASON FOR EXAM: CHEST PAIN TECHNIQUE: CHEST PA AND LATERAL COMPARISON: Chest x-ray 02/25/2024. RAD/Chest PA and Lateral IMPRESSION: Examination limited by AP portable technique, hypoinflation, and significant patient motion on both views. A prominent hiatal hernia is seen. Areas of bibasilar atelectasis are noted, evwqi-zrinecb-bdwi-left; cannot entirely exclude the presence of pneumonitis. No evidence of pulmonary edema. No pleural effusion or pneumothorax is seen. The cardiomediastinal silhouette is stable, without evidence of cardiomegaly. Reading Location: [place] [address] CC: CORK PAINTER AND GRADERArmando Cat; Dr. Gavino Jeffery DO Moth Proofer: Signed Normal [facility] Chloride assayOrdered By: Khris Jeffery on 03-26-2025 Chloride [Moles/Vol] 103 mmol/L 98-108 [facility] Comprehensive Metabolic Prof ilon 03-26-2025 Albumin [Mass/Vol] 3.8 g/dL Normal 3.4-4.8 [facility] Comment on above: Performed By: #### M 200.1000, L100.0100, L500.4050, L503.6005, L501.4021, L300.4310, L300.3900 #### [facility] [address] [place], [address] Albumin/Globulin [Mass ratio] 1.1 {ratio} Normal 0.9-2.4 [facility] Comment on above: Performed By: #### M 200.1000, L100.0100, L500.4050, L503.6005, L501.4021, L300.4310, L300.3900 #### [facility] [address] [place], [address] ALK PHOS 63 U/L Normal 40-129 [facility] Comment on above: Performed By: #### M 200.1000, L100.0100, L500.4050, L503.6005, L501.4021, L300.4310, L300.3900 #### [facility] [address] [place], [address] ALT [Catalytic activity/Vol] 11 U/L Normal <=46 [facility] Comment on above: Performed By: #### M 200.1000, L100.0100, L500.4050, L503.6005, L501.4021, L300.4310, L300.3900 #### [facility] [address] [place], [address] AST [Catalytic activity/Vol] 20 U/L Normal <=37 [facility] Comment on above: Performed By: #### M 200.1000, L100.0100, L500.4050, L503.6005, L501.4021, L300.4310, L300.3900 #### [facility] [address] [place], [address] Bilirubin [Mass/Vol] 0.37 mg/dL Normal 0.00-1.30 [facility] Comment on above: Performed By: #### M 200.1000, L100.0100, L500.4050, L503.6005, L501.4021, L300.4310, L300.3900 #### [facility] [address] [place], [address] BUN/CRE 13.2 RATIO Normal 10-20 [facility] Comment on above: Performed By: #### M 200.1000, L100.0100, L500.4050, L503.6005, L501.4021, L300.4310, L300.3900 #### [facility] [address] [place], [address] Calcium [Mass/Vol] 9.7 mg/dL Normal 7.6-11.0 [facility] Comment on above: Performed By: #### M 200.1000, L100.0100, L500.4050, L503.6005, L501.4021, L300.4310, L300.3900 #### [facility] [address] [place], [address] Chloride [Moles/Vol] 103 mmol/L Normal 98-108 [facility] Comment on above: Performed By: #### M 200.1000, L100.0100, L500.4050, L503.6005, L501.4021, L300.4310, L300.3900 #### [facility] [address] [place], [address] CO2 [Moles/Vol] 20.5 mmol/L Low 21.0-32.0 [facility] Comment on above: Performed By: #### M 200.1000, L100.0100, L500.4050, L503.6005, L501.4021, L300.4310, L300.3900 #### [facility] [address] [place], [address] Creatinine [Mass/Vol] 1.19 mg/dL Normal 0.70-1.20 [facility] Comment on above: Performed By: #### M 200.1000, L100.0100, L500.4050, L503.6005, L501.4021, L300.4310, L300.3900 #### [facility] [address] [place], [address] ECRCL 68.34 ml/min Normal 50-250 [facility] Comment on above: Performed By: #### M 200.1000, L100.0100, L500.4050, L503.6005, L501.4021, L300.4310, L300.3900 #### [facility] [address] [place], [address] GAP 13 Normal 5-15 [facility] Comment on above: Performed By: #### M 200.1000, L100.0100, L500.4050, L503.6005, L501.4021, L300.4310, L300.3900 #### [facility] [address] [place], [address] GFR/1.73 sq M.predicted among non-blacks MDRD (S/P/Bld) [Vol rate/Area] 69 mL/min/{1.73_m2} Normal >60 [facility] Comment on above: Result Comment: mL/m in/1.73m2 CKD-EPI Creatinine Equation (2020) Performed By: #### M 200.1000, L100.0100, L500.4050, L503.6005, L501.4021, L300.4310, L300.3900 #### [facility] [address] [place], [address] Globulin (S) [Mass/Vol] 3.6 g/dL Normal 2.2-4.2 [facility] Comment on above: Performed By: #### M 200.1000, L100.0100, L500.4050, L503.6005, L501.4021, L300.4310, L300.3900 #### [facility] [address] [place], [address] Glucose [Mass/Vol] 105 mg/dL High 70-99 [facility] Comment on above: Performed By: #### M 200.1000, L100.0100, L500.4050, L503.6005, L501.4021, L300.4310, L300.3900 #### [facility] [address] [place], [address] Potassium [Moles/Vol] 3.7 mmol/L Normal 3.3-5.1 [facility] Comment on above: Performed By: #### M 200.1000, L100.0100, L500.4050, L503.6005, L501.4021, L300.4310, L300.3900 #### [facility] [address] [place], [address] Sodium [Moles/Vol] 137 mmol/L Normal 133-145 [facility] Comment on above: Performed By: #### M 200.1000, L100.0100, L500.4050, L503.6005, L501.4021, L300.4310, L300.3900 #### [facility] [address] [place], [address] T PROT 7.4 g/dL Normal 5.9-8.4 [facility] Comment on above: Performed By: #### M 200.1000, L100.0100, L500.4050, L503.6005, L501.4021, L300.4310, L300.3900 #### [facility] [address] [place], [address] Urea nitrogen [Mass/Vol] 16 mg/dL Normal 4-19 [facility] Comment on above: Performed By: #### M 200.1000, L100.0100, L500.4050, L503.6005, L501.4021, L300.4310, L300.3900 #### [facility] [address] [place], [address] Emergency Department Summary on 03-26-2025 Emergency Department Summary [facility] Medical Records Department [address] [place] [address] Emergency Department Summary 03/26/25 MR#: [id number] Acct: [id number] Name: CASH MICHEL Rep #: [id number] : 1965 59 From: Gavino Jeffery DO [...] he is not dizzy he is lightheaded. [facility] Medical History Chest pain Essential hypertension Cholelithiasis [...] following commands and that he was at [facility] year is 2024 Skin: Warm, dry, [...] 100 98 (more content not included)... Normal [facility] Eosinophil percentageOrdered By: Gavino Jeffery on 03-26-2025 Eosinophils/100 WBC (Bld) 2.3 % 0-5 [facility] Erythrocyte distribution wid th ratioOrdered By: Gavino Jeffery on 03-26-2025 Erythrocyte distribution width (RBC) [Ratio] 17.1 % High 11.6-14.6 [facility] Erythrocyte distribution wid th standard deviationOrdered By: Gavino Jeffery on 03-26-2025 Erythrocyte distribution width (RBC) [Ratio] 43.3 fl 35.1-43.9 [facility] Glomerular filtration rate ( GFR) estimation/1.73 sq m using serum, plasma, or whole bOrdered By: Gavino Jeffery on 03-26-2025 GFR/1.73 sq M.predicted among non-blacks MDRD (S/P/Bld) [Vol rate/Area] 69 mL/min/{1.73_m2} >60 [facility] Comment on above: mL/min/1.73m2 CKD-EP I Creatinine Equation (2020) Hematocrit Auto (Bld) [Volum e fraction]Ordered By: Gavino Jeffery on 03-26-2025 Hematocrit (Bld) [Volume fraction] 35.2 % Low 40-54 [facility] Hemoglobin measurementOrdere d By: Gavino Jeffery on 03-26-2025 Hemoglobin (Bld) [Mass/Vol] 10.4 g/dL Low 13.0-16.5 [facility] Immature granulocytes/100 WB C Auto (Bld)Ordered By: Gavino Jeffery on 03-26-2025 Immature granulocytes/100 WBC (Bld) 0.300 % 0.0-0.9 [facility] Comment on above: IG% - Immature Granu locytes (promyelocytes, myelocytes and metamyelocytes) > 1% indicates that a LEFT SHIFT is Present. Influenza virus A and B and SARS-CoV-2 (COVID-19) and Respiratory syncytial virus RNAOrdered By: Gavino Jeffery on 03-26-2025 SARS-CoV-2 (COVID-19) RNA BRISEIDA+probe Ql (Unsp spec) [facility] International normalized rat io (INR) calculationOrdered By: Gavino Jeffery on 03-26-2025 INR Coag (Bld) [Relative time] 1.0 {INR} [facility] Ketones Test strip Ql (U)Ord ered By: Gavino Jeffery on 03-26-2025 Ketones Ql (U) Negative Negative [facility] L499.0042on 03-26-2025 Trop T High Sen < 6 Normal <=22 [facility] Comment on above: Performed By: #### L 500.2500, L100.0100 #### [facility] [address] [place], [address] L499.0043on 03-26-2025 Trop T High Sen Normal <=22 [facility] Comment on above: Result Comment: Ty long via OM: Ordered Performed By: #### L 500.2500, L100.0100 #### [facility] [address] [place], [address] L501.4021on 03-26-2025 Trop T High Sen < 6 Normal <=22 [facility] Comment on above: Performed By: #### L 500.2500, L100.0100 #### [facility] [address] [place], [address] Laboratory - Chemistry and C hemistry - challengeOrdered By: aGvino Jeffery on 03-26-2025 AST [Catalytic activity/Vol] 20 U/L <38 [facility] Lactic Acidon 03-26-2025 Lactate [Moles/Vol] 1.5 mmol/L Normal 0.0-2.0 [facility] Comment on above: Order Comment: Y Performed By: #### L 500.2500, L100.0100 #### [facility] [address] [place], [address] Lactic acid measurementOrder ed By: Gavino Jeffery on 03-26-2025 Lactate [Moles/Vol] 1.5 mmol/L 0.0-2.0 [facility] M100.678on 03-26-2025 M100.678 SARS-CoV-2 (COVID 19 ) Negative INFLUENZA A Negative INFLUENZA B Negative RSV PCR Negative Normal [facility] Comment on above: Performed By: #### L 500.2500, L100.0100 #### [facility] [address] [place], [place], [address] MCV (mean corpuscular volume ) determinationOrdered By: Gavino Jeffery on 03-26-2025 MCV (RBC) [Entitic vol] 71.8 fL Low 80-94 [facility] Mean corpuscular hemoglobin (MCH) determinationOrdered By: Gavino Jeffery on 03-26-2025 MCH (RBC) [Entitic mass] 21.2 pg Low 27.0-32.0 [facility] Mean corpuscular hemoglobin concentration (MCHC) determinationOrdered By: Gavino Jeffery on 03-26-2025 MCHC (RBC) [Mass/Vol] 29.5 g/dL Low 32-36 [facility] Mean platelet volume determi nationOrdered By: Gavino Jeffery on 03-26-2025 Platelet mean volume (Bld) [Entitic vol] 10.1 fL 6.2-12.0 [facility] Microscopic analysis of urin e for red blood cells (RBC)Ordered By: Gavino Jeffery on 03-26-2025 Microscopic analysis of urine for red blood cells (RBC) 0 SEEN /hpf 0-5 [facility] Monocyte percentageOrdered B y: Gavino Jeffery on 03-26-2025 Monocytes/100 WBC (Bld) 9.9 % 0-10 [facility] Mucus LM Ql (Urine sed)Order ed By: Gavino Jeffery on 03-26-2025 Mucus Ql (Urine sed) 0 SEEN /hpf [facility] Neutrophil percentageOrdered By: Gavino Jeffery on 03-26-2025 Neutrophils/100 WBC (Bld) 68.8 % 47-70 [facility] Nitrite Test strip Ql (U)Ord ered By: Gavino Jeffery on 03-26-2025 Nitrite Ql (U) Negative Negative [facility] Nucleated red blood cell per centageOrdered By: Gavino Jeffery on 03-26-2025 Nucleated RBC/100 WBC (Bld) [Ratio] 0 % 0-5 [facility] Partial Thromboplast Timeon 03-26-2025 aPTT Coag (Bld) [Time] 24.2 s Normal 24.1-36.2 [facility] Comment on above: Performed By: #### M 200.1000, L100.0100, L500.4050, L503.6005, L501.4021, L300.4310, L300.3900 #### [facility] [address] [place], [address] Platelet countOrdered By: Khris Jeffery on 03-26-2025 Platelets (Bld) [#/Vol] 351 10*3/uL 150-450 [facility] Potassium measurement (mass/ volume)Ordered By: Gavino Jeffery on 03-26-2025 Potassium (Unsp spec) [Mass/Vol] 3.7 mmol/L 3.3-5.1 [facility] Protein Test strip Ql (U)Ord ered By: Gavino Jeffery on 03-26-2025 Protein Ql (U) Negative Negative [facility] Prothrombin Time w/INRon INR Coag (PPP) [Relative time] 1.0 {INR} Normal [facility] Comment on above: Performed By: #### M 200.1000, L100.0100, L500.4050, L503.6005, L501.4021, L300.4310, L300.3900 #### [facility] [address] [place], [address] PT Coag (PPP) [Time] 13.0 s Normal 11.7-14.9 [facility] Comment on above: Performed By: #### M 200.1000, L100.0100, L500.4050, L503.6005, L501.4021, L300.4310, L300.3900 #### [facility] [address] [place], [place], [address] Prothrombin timeOrdered By: Gavino Jeffery on 03-26-2025 PT Coag (PPP) [Time] 13.0 s 11.7-14.9 [facility] RBC Auto (Bld) [#/Vol]Ordere d By: Gavino Jeffery on 03-26-2025 RBC (Bld) [#/Vol] 4.90 10*6/uL 4.6-6.2 [facility] Serum creatinine measurement (mass/volume)Ordered By: Gavino Jeffery on 03-26-2025 Creatinine [Mass/Vol] 1.19 mg/dL 0.70-1.20 [facility] Serum globulin measurementOr dered By: Gavino Jeffery on 03-26-2025 Globulin (S) [Mass/Vol] 3.6 g/dL 2.2-4.2 [facility] Serum glucose measurement (m ass/volume)Ordered By: Gavino Jeffery on 03-26-2025 Glucose [Mass/Vol] 105 mg/dL High 70-99 [facility] Serum or plasma alanine barahona otransferase (ALT) measurementOrdered By: Gavino Jeffery on 03-26-2025 ALT [Catalytic activity/Vol] 11 U/L <47 [facility] Serum or plasma albumin valerie urement (mass/volume)Ordered By: Gavino Jeffery on 03-26-2025 Albumin [Mass/Vol] 3.8 g/dL 3.4-4.8 [facility] Serum or plasma albumin/glob ulin mass ratioOrdered By: Gavino Jeffery on 03-26-2025 Albumin/Globulin [Mass ratio] 1.1 {ratio} 0.9-2.4 [facility] Serum or plasma alkaline aditya sphatase measurementOrdered By: Gavino Jeffery on 03-26-2025 ALP [Catalytic activity/Vol] 63 U/L 40-129 [facility] Serum or plasma calcium valerie urement (mass/volume)Ordered By: Gavino Jeffery on 03-26-2025 Calcium [Mass/Vol] 9.7 mg/dL 7.6-11.0 [facility] Serum or plasma urea nitroge n measurement (mass/volume)Ordered By: Gavino Jeffery on 03-26-2025 Urea nitrogen [Mass/Vol] 16 mg/dL 4-19 [facility] Sodium levelOrdered By: Jonny Jeffery on 03-26-2025 Sodium [Moles/Vol] 137 mmol/L 133-145 [facility] Squamous epithelial cells de tection in urine sediment by light microscopyOrdered By: Gavino Jeffery on 03-26-2025 Epithelial cells.squamous LM Ql (Urine sed) 0 SEEN /hpf 0-5 [facility] Total proteinOrdered By: Jonn Jeffery on 03-26-2025 Protein [Mass/Vol] 7.4 g/dL 5.9-8.4 [facility] Troponin T.cardiac [Mass/vol ume] in Serum or Plasma by High sensitivity methodOrdered By: Gavino Jeffery on 03-26-2025 Troponin T.cardiac High sensitivity method [Mass/Vol] < 6 ng/L <22 [facility] Troponin T.cardiac High sensitivity method [Mass/Vol] < 6 ng/L <22 [facility] Urinalysis, Completeon 03-26 BACTERIA 0 SEEN Normal None Seen [facility] Comment on above: Order Comment: BRODY MICHAEL TO SPECIFY Performed By: #### L 500.2500, L100.0100 #### [facility] [address] [place], [address] EPI,SQUAMOUS 0 SEEN Normal 0-5 [facility] Comment on above: Order Comment: COLLE CTOR TO SPECIFY Performed By: #### L 500.2500, L100.0100 #### [facility] [address] [place], [address] Mucus Ql (Urine sed) 0 SEEN Normal [facility] Comment on above: Order Comment: COLLE CTOR TO SPECIFY Performed By: #### L 500.2500, L100.0100 #### [facility] [address] [place], [address] RBC 0 SEEN Normal 0-5 [facility] Comment on above: Order Comment: BRODY CTOR TO SPECIFY Performed By: #### L 500.2500, L100.0100 #### [facility] [address] [place], [address] WBC 0 SEEN Normal 0-5 [facility] Comment on above: Order Comment: BRODY CTOR TO SPECIFY Performed By: #### L 500.2500, L100.0100 #### [facility] [address] [place], [address] Urine clarityOrdered By: Jonn Jeffery on 03-26-2025 Clarity (U) Clear Clear [facility] Urine color determinationOrd ered By: Gavino Jeffery on 03-26-2025 Color (U) Yellow Yellow [facility] Urine cultureOrdered By: Jonn Jeffery on 03-26-2025 Bacteria identified Cx Nom (U) Culture exhibits no growth. [facility] Urine glucose detectionOrder ed By: Gavino Jeffery on 03-26-2025 Glucose Ql (U) Normal mg/dl Normal [facility] Urine leukocyte esterase det ection by dipstickOrdered By: Gavino Jeffery on 03-26-2025 Leukocyte esterase Test strip Ql (U) Negative Negative [facility] Urine pHOrdered By: Gavino lam on 03-26-2025 pH (U) 6.0 [pH] 5.0 - 8.0 [facility] Urine sediment bacteria coun t by microscopy (number/high power field)Ordered By: Gavino Jeffery on 06-25-2025 Bacteria LM.HPF (Urine sed) [#/Area] 0 /[HPF] None Seen [facility] Urine specific gravity measu rementOrdered By: Gavino Jeffery on 03-26-2025 Specific gravity (U) [Rel density] 1.015 1.002-1.03 0 [facility] Urine urobilinogen measureme ntOrdered By: Gavino Jeffery on 03-26-2025 Urobilinogen Ql (U) Normal mg/dl Normal [facility] White blood cell (WBC) count Ordered By: Gavino Jeffery on 03-26-2025 WBC (Bld) [#/Vol] 9.7 10*3/uL 4.4-11.0 [facility] White blood cell countOrdere d By: Gavino Jeffery on 03-26-2025 White blood cell count 0 SEEN /hpf 0-5 [facility] CNPNon 12-04-2024 CNPN Telephone (CARDLO) ----- CASH MICHEL ([id number]) 1965 M [facility] Date Time Provider Department 12/04/24 GEORGE [...] calling: self Call patient at: on cell [phone] (home) [phone] (cell) Was an appointment scheduled: No Closing statement: Results or non-symptom based questions: Thank you for calling [facility], your call will be returned within the next business day. Kate Espinosa RN 12/04/2024 4:25 PM Signed Attempted to call pt. Phone went to [employer] however wouldn't accept a voice message. Will [...] any significant CAD. Coronary artery disease of [place] artery of [place] heart with stable angina pectoris (hcc) (primary [...] Known Allergies) Date Reviewed: 12/03/2024 Reviewed by: Yani Jeffery II, IVAN - Fully Assessed Prescriptions [...] 07/13/2022 Neck pain [M54.2] 01/11/2023 Atherosclerosis of [place] arteries of extremity*02/15/2023 BMI 26.0-26.9,adult [Z68.26] 04/07/2023 [...] pulmonary funct (more content not included)... Normal [facility] CNOVon 12-03-2024 CNOV Office Visit (CARINF ) ----- CASH MICHEL ([id number]) 1965 M [facility] Date Time Provider Department 12/03/24 3:00 PM GEORGE NORIEGA CARINF During your visit today, we recorded the following information about you: Pulse Blood pressure Weight Height 87/minute 128/96 81.3 kg 1.727 m George Noriega MD 12/03/2024 3:33 PM Formerly [facility], [facility]–1983 Heart, Vascular and Thoracic [place] Jose De Jesus Bower Department of Cardiovascular Medicine SECTION OF INTERVENTIONAL CARDIOLOGY OUTPATIENT VISIT DATE 12/03/2024 OUTPATIENT VISIT TYPE Established PRIMARY CARE PHYSICIAN: Awilda Garcia [address] [place] [address] REFERRING PHYSICIAN: Awilda Musa34 [facility] [address] CHIEF COMPLAINT: Patient presents with: Consult HISTORY [...] sentences. Inapprop (more content not included)... Normal [facility] 12 Lead EKGon 11-11-2024 12 Lead EKG [facility] Cardiovascular Services [address] [place] [address] 12 Lead EKG 11/11/24 1336 MR#: [id number] Acct: [id number] Name: CASH MICHEL Rep #: [id number] : 1965 59 From: Mike Unger MD [...] ) Borderline ECG Confirmed by Mike Unger ([id number]), commercial production editor LUISA HARE ([id number]) on 11/12/2024 10:03:49 AM Referred By: Confirmed By: Mike Unger 11/12/24 1003 Date Mike Unger MD CC: [employer]ADER-C Shreya Cat; Dr. Dawn Elizabeth MD Signed Normal [facility] Abdomen/Pelvis W IV Cont ONL Yon 11-11-2024 Abdomen/Pelvis W IV Cont ONLY [facility] Imaging Services [facility] [place], [place] [address] Abdomen/Pelvis W IV Cont ONLY MR#: [id number] Acct: [id number] Name: CASH MICHEL Rep #: [id number] : 1965 M 59 From: Mike bailey MD PCP: ROBINA Anglin Status: REG ER Study: Abdomen/Pelvis W IV Cont ONLY Date of Exam: Exam# [id number] Ordering Dr: Dawn Elizabeth MD PROCEDURE: ABDOMEN/PELVIS [...] use of iterative reconstruction technique). Reading Location: [place] [address] CC: ROBINA Cat; Dr. Dawn Elizabeth MD Moth Proofer: Signed Normal [facility] Basic Metabolic Profile (BMP )on 11-11-2024 BUN/CRE 14.3 RATIO Normal 10-20 [facility] Comment on above: Performed By: #### L 500.2500, L100.0100 #### [facility] [address] [place], [address] CA,Total 8.6 mg/dL Normal 8.5-10.1 [facility] Comment on above: Performed By: #### L 500.2500, L100.0100 #### [facility] [address] [place], [address] Chloride [Moles/Vol] 108 mmol/L High 98-107 [facility] Comment on above: Performed By: #### L 500.2500, L100.0100 #### [facility] [address] [place], [address] CO2 [Moles/Vol] 26.0 mmol/L Normal 21.0-32.0 [facility] Comment on above: Performed By: #### L 500.2500, L100.0100 #### [facility] [address] [place], [address] Creatinine [Mass/Vol] 1.05 mg/dL Normal 0.70-1.30 [facility] Comment on above: Result Comment: The validity of the calculated GFR GFRAA in patients over 70 years has not been determined. Clinical correlation is essential. Performed By: #### L 500.2500, L100.0100 #### [facility] [address] [place], [address] ECRCL 78.61 ml/min Normal [facility] Comment on above: Performed By: #### L 500.2500, L100.0100 #### [facility] [address] [place], [address] EST GFR - AA 92 mL/min Normal >60 [facility] Comment on above: Result Comment: Afri can Argentine GFR Calc Performed By: #### L 500.2500, L100.0100 #### [facility] [address] [place], [address] GAP 6 Normal 5-15 [facility] Comment on above: Performed By: #### L 500.2500, L100.0100 #### [facility] [address] [place], [address] GFR/1.73 sq M.predicted among non-blacks MDRD (S/P/Bld) [Vol rate/Area] 76 mL/min/{1.73_m2} Normal >60 [facility] Comment on above: Result Comment: Non- GFR Calc Performed By: #### L 500.2500, L100.0100 #### [facility] [address] [place], [address] Glucose [Mass/Vol] 92 mg/dL Normal 74-106 [facility] Comment on above: Performed By: #### L 500.2500, L100.0100 #### [facility] [address] [place], [address] Potassium [Moles/Vol] 3.1 mmol/L Low 3.5-5.1 [facility] Comment on above: Performed By: #### L 500.2500, L100.0100 #### [facility] [address] [place], [address] Sodium [Moles/Vol] 140 mmol/L Normal 136-145 [facility] Comment on above: Performed By: #### L 500.2500, L100.0100 #### [facility] [address] [place], [address] Urea nitrogen [Mass/Vol] 15 mg/dL Normal 7-18 [facility] Comment on above: Performed By: #### L 500.2500, L100.0100 #### [facility] [address] [place], [address] CBC W/Diff, Automatedon 11-02 0-2024 Absolute Lymph 1.58 X10 3/uL Normal 0.83-4.51 [facility] Comment on above: Performed By: #### L 500.2500, L100.0100 #### [facility] [address] [place], [address] Absolute Neut 2.3 X10 3/uL Normal 2.0-7.7 [facility] Comment on above: Performed By: #### L 500.2500, L100.0100 #### [facility] [address] [place], [address] Basophils/100 WBC (Bld) 0.7 % Normal 0-1 [facility] Comment on above: Performed By: #### L 500.2500, L100.0100 #### [facility] [address] [place], [address] Eosinophils/100 WBC (Bld) 1.6 % Normal 0-5 [facility] Comment on above: Performed By: #### L 500.2500, L100.0100 #### [facility] [address] [place], [address] Erythrocyte distribution width (RBC) [Ratio] 15.9 % High 11.6-14.6 [facility] Comment on above: Performed By: #### L 500.2500, L100.0100 #### [facility] [address] [place], [address] Hematocrit (Bld) [Volume fraction] 34.7 % Low 40-54 [facility] Comment on above: Performed By: #### L 500.2500, L100.0100 #### [facility] [address] [place], [address] Hemoglobin (Bld) [Mass/Vol] 10.3 g/dL Low 13.0-16.5 [facility] Comment on above: Performed By: #### L 500.2500, L100.0100 #### [facility] [address] [place], [address] IG% 0.500 Normal 0.0-0.9 [facility] Comment on above: Result Comment: IG% - Immature Granulocytes (promyelocytes, myelocytes and metamyelocytes) > 1% indicates that a LEFT SHIFT is Present. Performed By: #### L 500.2500, L100.0100 #### [facility] [address] [place], [address] Lymphocytes/100 WBC (Bld) 35.6 % Normal 19-41 [facility] Comment on above: Performed By: #### L 500.2500, L100.0100 #### [facility] [address] [place], [address] MCH (RBC) [Entitic mass] 21.8 pg Low 27.0-32.0 [facility] Comment on above: Performed By: #### L 500.2500, L100.0100 #### [facility] [address] [place], [address] MCHC (RBC) [Mass/Vol] 29.7 g/dL Low 32-36 [facility] Comment on above: Performed By: #### L 500.2500, L100.0100 #### [facility] [address] [place], [address] MCV (RBC) [Entitic vol] 73.5 fL Low 80-94 [facility] Comment on above: Performed By: #### L 500.2500, L100.0100 #### [facility] [address] [place], [address] Monocytes/100 WBC (Bld) 9.7 % Normal 0-10 [facility] Comment on above: Performed By: #### L 500.2500, L100.0100 #### [facility] [address] [place], [address] Neutrophils/100 WBC (Bld) 51.9 % Normal 47-70 [facility] Comment on above: Performed By: #### L 500.2500, L100.0100 #### [facility] [address] [place], [address] Nucleated RBC (Bld) [#/Vol] 0 10*3/uL Normal 0-5 [facility] Comment on above: Performed By: #### L 500.2500, L100.0100 #### [facility] [address] [place], [address] Platelet mean volume (Bld) [Entitic vol] 10.6 fL Normal 6.2-12.0 [facility] Comment on above: Performed By: #### L 500.2500, L100.0100 #### [facility] [address] [place], [address] Platelets (Bld) [#/Vol] 281 10*3/uL Normal 150-450 [facility] Comment on above: Performed By: #### L 500.2500, L100.0100 #### [facility] [address] [place], [address] RBC (Bld) [#/Vol] 4.72 10*6/uL Normal 4.6-6.2 [facility] Comment on above: Performed By: #### L 500.2500, L100.0100 #### [facility] [address] [place], [address] RDW SD 41.7 fl Normal 35.1-43.9 [facility] Comment on above: Performed By: #### L 500.2500, L100.0100 #### [facility] [address] [place], [address] WBC (Bld) [#/Vol] 4.4 10*3/uL Normal 4.4-11.0 [facility] Comment on above: Performed By: #### L 500.2500, L100.0100 #### [facility] [address] [place], [address] Chest without Contraston Chest without Contrast [facility] Imaging Services [address] [place] [address] Chest without Contrast MR#: [id number] Acct: [id number] Name: CASH MICHEL Rep #: [id number] : 1965 M 59 From: Mike bailey MD PCP: Shreya Cat NP-Margarita Status: [facility] ER Study: Chest without Contrast Date of Exam: 11/11/24 Exam# [id number] Ordering Dr: Dawn Elizabeth MD PROCEDURE: CHEST [...] use of iterative reconstruction technique). Reading Location: [facility] CC: ROBINA Cat; Dr. Dawn Elizabeth MD Moth Proofer: Signed Normal [facility] Emergency Department Summary on 11-11-2024 Emergency Department Summary [facility] Medical Records Department [address] [place] [address] Emergency Department Summary 11/11/24 MR#: [id number] Acct: [id number] Name: CASH MICHEL Rep #: [id number] : 1965 59 From: Dawn Elizabeth MD [...] physician for treatment for rib contusion. 11/11/24 1717 Cosigner Signature (if applicable): cc: ROBINA Cat [...] Prior similar symptoms: Yes Recent Illness/Hospitalization: Yes [facility] Medical History Chest pain Essential hypertension Cholelithiasis [...] normal Beth (more content not included)... Normal [facility] L501.4020on 11-11-2024 TROPONIN-I HS 13 pg/mL Normal 3.0-78.0 [facility] Comment on above: Order Comment: 'TROP ' Serial specimen #1, #2 or #3: 2 Result Comment: Plea se Note: New Test Units and Gender Specific Reference Ranges. For more information see Policy Stat Procedure [place] High Sensitivity Troponin (TNIH) and attachments. Performed By: #### L 501.4021, L100.0100, L500.2500 #### [facility] [address], [address] TROPONIN-I HS 10 pg/mL Normal 3.0-78.0 [facility] Comment on above: Order Comment: 'TROP ' Serial specimen #1, #2 or #3: 1 Result Comment: Plea se Note: New Test Units and Gender Specific Reference Ranges. For more information see Policy Stat Procedure [place] High Sensitivity Troponin (TNIH) and attachments. Performed By: #### L 500.2500, L100.0100 #### [facility] [address] [place], [address] Liver Profileon 11-11-2024 Albumin [Mass/Vol] 3.0 g/dL Low 3.2-5.0 [facility] Comment on above: Performed By: #### L 500.3400 #### [facility] [address] [place], [address] ALK P 49 U/L Normal 45-117 [facility] Comment on above: Performed By: #### L 500.3400 #### [facility] [address] [place], [address] ALT [Catalytic activity/Vol] 23 U/L Normal 16-61 [facility] Comment on above: Performed By: #### L 500.3400 #### [facility] [address] [place], [address] AST [Catalytic activity/Vol] 26 U/L Normal 15-37 [facility] Comment on above: Performed By: #### L 500.3400 #### [facility] [address] [place], [address] Bilirubin [Mass/Vol] 0.20 mg/dL Normal 0.20-1.00 [facility] Comment on above: Result Comment: For patients on eltrombopag therapy, use of Dimension [place] TBIL is not recommended. Performed By: #### L 500.3400 #### [facility] [address] [place], [address] Bilirubin.direct [Mass/Vol] 0.09 mg/dL Normal 0.00-0.30 [facility] Comment on above: Performed By: #### L 500.3400 #### [facility] [address] [place], [address] Globulin (S) [Mass/Vol] 4.0 g/dL Normal 2.2-4.2 [facility] Comment on above: Performed By: #### L 500.3400 #### [facility] [address] [place], [place], [address] T PROT 7.0 g/dL Normal 6.4-8.2 [facility] Comment on above: Performed By: #### L 500.3400 #### [facility] [address] [place], [address] HISTORY PHYSICALon HISTORY PHYSICAL HNO ID: [id number] Author: YVETTE SINGLETON PA-C Service: Anesthesiology Author Type: Physician Flatwork Assembler Type: H&P Filed: 10/22/2024 07:50 Note Text: [...] disease Active Problems: 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) (POA: Unknown) Assessment AND Plan: Coronary artery disease of [place] artery of [place] heart with stable angina pectoris Resolved Problems: * No resolved hospital problems. * Provisional Diagnosis/Treatment Plan: Coronary artery disease of [place] artery of [place] heart with stable angina pectoris / Procedure(s) (LRB): CORONARY ANGIO W CATH PLACE W IMAGE INJECT AND INTERP W LT HEART CATH W INJECT LT VENTRGRAPHY (N/A) SIGNATURE: Yvette Singleton PA-C PATIENT NAME: Cash Michel DATE: October 22, 2024 TIME: 7:49 AM Normal [facility] NURSING PROGon 10-22-2024 NURSING PROG HNO ID: [id number] Author: DIANA EVANGELISTA RN Service: ? Author Type: Registered Nurse Type: Nursing Progress Note Filed: 10/22/2024 09:18 Note Text: Upon interviewing patient pre-procedure, no phone number provided for his brother who is his planned fast food delivery driver. Patient states he cannot remember his [...] and will come afterwards. Information relayed to paint laboratory technician team and supervisors. [facility] OPERATIVE NOon 10-22-2024 OPERATIVE NO HNO ID: [id number] Author: GEORGE NORIEGA MD Service: Interventional Cardiology Author Type: Physician Type: Operative Report Filed: 10/22/2024 09:22 Note Text: CARDIAC CATHETERIZATION REPORT PATIENT NAME: Cash Michel SERVICE DATE: 10/22/24 SERVICE TIME: 60 minutes [place] Consultant: George Noriega MD Attending: George Noriega MD [...] Noriega MD DATE: 10/22/24 TIME: 9:19 AM [facility] CBC panel Auto (Bld)on 10-21 Erythrocyte distribution width (RBC) [Ratio] 15.6 % High 11.5-15.0 [facility] Comment on above: Order Comment: Carlo howard Type: BLOOD SPECIMEN Ordering Facility: [facility] Address: [address] [place] [address] Performed By: #### P SAS1 #### [facility] CLIA [id number] [address] [place] [address] [place] Hematocrit (Bld) [Volume fraction] 34.1 % Low 39.0-51.0 [facility] Comment on above: Order Comment: Carlo howard Type: BLOOD SPECIMEN Ordering Facility: [facility] Address: [address] [place] [address] Performed By: #### P SAS1 #### [facility] CLIA [id number] [address] [place] [address] [place] Hemoglobin (Bld) [Mass/Vol] 10.0 g/dL Low 13.0-17.0 [facility] Comment on above: Order Comment: Carlo howard Type: BLOOD SPECIMEN Ordering Facility: [facility] Address: [address] [place] [address] Performed By: #### P SAS1 #### [facility] CLIA [id number] [address] [place] [address] [place] MCH (RBC) [Entitic mass] 22.1 pg Low 26.0-34.0 [facility] Comment on above: Order Comment: Speci men Type: BLOOD SPECIMEN Ordering Facility: [facility] Address: [address] [place] [address] Performed By: #### P SAS1 #### [facility] CLIA [id number] [address] [place] [address] [place] MCHC (RBC) [Mass/Vol] 29.3 g/dL Low 30.5-36.0 [facility] Comment on above: Order Comment: Speci men Type: BLOOD SPECIMEN Ordering Facility: [facility] Address: [address] [place] [address] Performed By: #### P SAS1 #### [facility] CLIA [id number] [address] [place] [address] [place] MCV (RBC) [Entitic vol] 75.4 fL Low 80.0-100.0 [facility] Comment on above: Order Comment: Speci men Type: BLOOD SPECIMEN Ordering Facility: [facility] Address: [address] [place] [address] Performed By: #### P SAS1 #### [facility] CLIA [id number] [address] [place] [address] [place] Nucleated RBC (Bld) [#/Vol] 10*3/uL Normal <0.01 [facility] Comment on above: Order Comment: Speci men Type: BLOOD SPECIMEN Ordering Facility: [facility] Address: [address] [place] [address] Performed By: #### P SAS1 #### [facility] CLIA [id number] [address] [place] [address] [place] Platelet mean volume (Bld) [Entitic vol] 9.0 fL Normal 9.0-12.7 [facility] Comment on above: Order Comment: Speci men Type: BLOOD SPECIMEN Ordering Facility: [facility] Address: [address] [place] [address] Performed By: #### P SAS1 #### [facility] CLIA [id number] [address] [place] [address] [place] Platelets (Bld) [#/Vol] 396 10*3/uL Normal 150-400 [facility] Comment on above: Order Comment: Speci men Type: BLOOD SPECIMEN Ordering Facility: [facility] Address: [address] [place] [address] Performed By: #### P SAS1 #### [facility] CLIA [id number] [address] [place] [address] [place] RBC (Bld) [#/Vol] 4.52 10*6/uL Normal 4.20-6.00 [facility] Comment on above: Order Comment: Speci men Type: BLOOD SPECIMEN Ordering [facility] Address: [address] [place] [address] Performed By: #### P SAS1 #### [facility] CLIA [id number] [address] [place] [address] [place] WBC (Bld) [#/Vol] 9.57 10*3/uL Normal 3.70-11.00 [facility] Comment on above: Order Comment: Speci men Type: BLOOD SPECIMEN Ordering Facility: [facility] Address: [address] [place] [address] Performed By: #### P SAS1 #### [facility] CLIA [id number] [address] [place] [address] [place] Comprehensive metabolic 2000 panelon 10-21-2024 Albumin [Mass/Vol] 3.9 g/dL Normal 3.9-4.9 [facility] Comment on above: Order Comment: Speci men Type: BLOOD SPECIMEN Ordering Facility: [facility] Address: [address] [place], [place] [id number] Performed By: #### P SAS1 #### [facility] CLIA [id number] [address] [place] [address] [place] ALP [Catalytic activity/Vol] 64 U/L Normal 38-113 [facility] Comment on above: Order Comment: Speci men Type: BLOOD SPECIMEN Ordering Facility: [facility] Address: [address] [place] [address] Performed By: #### P SAS1 #### [facility] CLIA [id number] [address] [place] [address] [place] ALT [Catalytic activity/Vol] 11 U/L Normal 10-54 [facility] Comment on above: Order Comment: Speci men Type: BLOOD SPECIMEN Ordering Facility: [facility] Address: [address] [place] [address] Performed By: #### P SAS1 #### [facility] CLIA [id number] [address] [place] [address] [place] Anion gap [Moles/Vol] 9 mmol/L Normal 8-15 [facility] Comment on above: Order Comment: Speci men Type: BLOOD SPECIMEN Ordering Facility: [facility] Address: [address] [place] [address] Performed By: #### P SAS1 #### [facility] CLIA [id number] [address] [place] [address] [place] AST [Catalytic activity/Vol] 13 U/L Low 14-40 [facility] Comment on above: Order Comment: Speci men Type: BLOOD SPECIMEN Ordering Facility: [facility] Address: [address] [place] [address] Performed By: #### P SAS1 #### [facility] CLIA [id number] [address] [place], [place] [address] [place] Bilirubin [Mass/Vol] 0.2 mg/dL Normal 0.2-1.3 [facility] Comment on above: Order Comment: Speci men Type: BLOOD SPECIMEN Ordering Facility: [facility] Address: [address] [place], [place] [address] Performed By: #### P SAS1 #### [facility] CLIA [id number] [address] [place], [place] [address] [place] Calcium [Mass/Vol] 9.2 mg/dL Normal 8.5-10.2 [facility] Comment on above: Order Comment: Speci men Type: BLOOD SPECIMEN Ordering Facility: [facility] Address: [address] [place], [place] [address] Performed By: #### P SAS1 #### [facility] CLIA [id number] [address] [place] [address] [place] Chloride [Moles/Vol] 108 mmol/L High 98-107 [facility] Comment on above: Order Comment: Speci men Type: BLOOD SPECIMEN Ordering Facility: [facility] Address: [address] [place] [address] Performed By: #### P SAS1 #### [facility] CLIA [id number] [address] [place] [address] [place] CO2 [Moles/Vol] 23 mmol/L Normal 22-30 [facility] Comment on above: Order Comment: Speci men Type: BLOOD SPECIMEN Ordering Facility: [facility] Address: [address] [place] [address] Performed By: #### P SAS1 #### [facility] CLIA [id number] [address] [place], [place] [address] [place] Creatinine [Mass/Vol] 0.98 mg/dL Normal 0.73-1.22 [facility] Comment on above: Order Comment: Speci men Type: BLOOD SPECIMEN Ordering Facility: [facility] Address: [address] [place], [place] [address] Performed By: #### P SAS1 #### [facility] CLIA [id number] [address] [place] [address] [place] Creatinine and Glomerular filtration rate.predicted panel (S/P/Bld) 88 mL/min/1.73m??? Normal >=60 [facility] Comment on above: Order Comment: Carlo howard Type: BLOOD SPECIMEN Ordering Facility: [facility] Address: [address] [place] [address] Result Comment: Marie mated Glomerular Filtration Rate [...] accurately reflect actual GFR. Performed By: #### P SAS1 #### [facility] CLIA [id number] [address] [place] [address] [place] Glucose [Mass/Vol] 109 mg/dL High 74-99 [facility] Comment on above: Order Comment: Carlo howard Type: BLOOD SPECIMEN Ordering Facility: [facility] Address: [address] [place] [address] Result Comment: The [place] Diabetes Association (ADA) provides guidance for cutoff [...] Standards of Medical Care in Diabetes 2016, [place] Diabetes Association. Diabetes Care. 2016.39(Suppl 1). Performed By: #### P SAS1 #### [facility] CLIA [id number] [address] [place] [address] [place] Potassium [Moles/Vol] 3.7 mmol/L Normal 3.7-5.1 [facility] Comment on above: Order Comment: Speci men Type: BLOOD SPECIMEN Ordering Facility: [facility] Address: [address] [place] [address] Performed By: #### P SAS1 #### [facility] CLIA [id number] [address] [place] [address] [place] Protein [Mass/Vol] 6.9 g/dL Normal 6.3-8.0 [facility] Comment on above: Order Comment: Speci men Type: BLOOD SPECIMEN Ordering Facility: [facility] Address: [address] [place] [address] Performed By: #### P SAS1 #### [facility] CLIA [id number] [address] [place] [address] [place] Sodium [Moles/Vol] 140 mmol/L Normal 136-144 [facility] Comment on above: Order Comment: Speci men Type: BLOOD SPECIMEN Ordering [facility] Address: [address] [place] [address] Performed By: #### P SAS1 #### [facility] CLIA [id number] [address] [place] [address] [place] Urea nitrogen [Mass/Vol] 15 mg/dL Normal 9-24 [facility] Comment on above: Order Comment: Speci men Type: BLOOD SPECIMEN Ordering Facility[facility] Address: [address] [place] [address] Performed By: #### P SAS1 #### [facility] CLIA [id number] [address] [place] [address] [place] CNOVon 10-18-2024 CNOV Office Visit (CARINF ) ----- CASH MICHEL ([id number]) 1965 M [facility] Date Time Provider Department 10/18/24 3:00 PM GEORGE NORIEGA During your visit today, we recorded the following information about you: Pulse Blood pressure Weight Height 64/minute 124/90 83.4 kg 1.727 m George Noriega MD 12/16/2024 9:39 AM Signed Heart, Vascular and Thoracic [place] [facility] Department of Cardiovascular [...] 07/13/2022 Neck pain [M54.2] 01/11/2023 Atherosclerosis of [place] arteries of extremity*02/15/2023 BMI 26.0-26.9,adult [Z68.26] 04/07/2023 [...] Encounter Status:Closed by GEORGE NORIEGA on 12/16/24 [facility] CNPRegla 09-18-2024 CNPN Telephone (CARDAV) ----- CASH MICHEL ([id number]) 1965 [facility] Date Time Provider Department 09/18/24 GEORGE NORIEGA CARDAV During your visit today, we recorded the following information about you: Sincere Jacobo David 09/18/2024 3:03 PM Signed Received notification that patient cancelled his originally scheduled heart catheterization at [facility] with Dr. George Noriega. Called patient, who shared he would like to reschedule into October. Opted for 10/22/2024 date. He would like to keep the existing 10/18/[address] Noriega to review any questions that arise. Will have lab work drawn after the appointment at [facility]. Procedure instructions submitted via CareParent for patient's review. Allergies As of Date: [...] 07/13/2022 Neck pain [M54.2] 01/11/2023 Atherosclerosis of [place] arteries of extremity*02/15/2023 BMI 26.0-26.9,adult [Z68.26] 04/07/2023 [...] Encounter Status:Closed by SINCERE JACOBO on 09/18/24 [facility] CNOVon 08-20-2024 CNOV Office Visit (LUANNE ) ----- CASH MICHEL ([id number]) 1965 M [facility] Date Time Provider Department 08/20/24 1:00 PM AWILDA GARCIA During your visit today, we recorded the following information about you: Temperature Pulse Blood pressure Weight 99.1 degrees 85/minute 132/94 82.8 kg Height 1.727 m Awilda Garcia MD 08/20/2024 2:38 PM Signed This note was created using Aquacueriter. Subjective Cash Gonsalvesgurpreetyocasta is a 59 year old male. The [...] Kidney Disease Mother Heart disease Father 83 DC at age 83 Hypertension Father Parkinson?s Disease [...] murmur heard. (more content not included)... Normal [facility] Brain/Head without Contrasto n 08-15-2024 Brain/Head without Contrast [facility] Imaging Services [address] [place] [address] Brain/Head without Contrast MR#: [id number] Acct: [id number] Name: CASH MICHEL Rep #: [id number] : 1965 M 59 From: Rivas Joy PCP: ROBINA Anglin Status: DEP Study: Brain/Head without Contrast Date of Exam: 08/02 01/23 Exam# [id number] Ordering Dr: Arash Pink MD [id number] STUDY: CT BRAIN WITHOUT CONTRAST REASON FOR [...] frontal encephalomalacia. No acute disease. Electronically Signed: Rivas Gracia MD at 16:31 EST , CC: ROBINA Cat; Dr. Arash Pink MD Moth Proofer: Signed Normal [facility] Emergency Department Summary on 08-15-2024 Emergency Department Summary [facility] Medical Records Department [address] [place] [address] Emergency Department Summary 08/15/24 MR#: [id number] Acct: [id number] Name: CASH MICHEL Rep #: [id number] : 1965 59 From: Arash Pink MD [...] his head hitting him in the right buddhist causing him to have a loss of consciousness he believes for 1 to 2 minutes. This occurred on Monday which is now about 6 days ago. Denies any other complaints. Prior similar symptoms: Yes Recent Illness/Hospitalization: No [facility] Medical History Chest pain Essential hypertension Cholelithiasis [...] complains of mild tenderness to his right buddhist there is no significant hematoma nor laceration. He is diaphoretic. Disoriented otherwise scalp nontender. Neck nontender with normal range of motion. Trachea midline. Back nontender. Lungs clear. Heart regular rate and rhythm rate about 90. Chest wall and ribs nontender. Abdomen soft nontender. Pelvic girdle intact. Moving all 4 extremities. 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 Dorsi plantarflexion intact. Neurologically patient is (more content not included)... Normal [facility] 07-22-2024 [facility] Telephone (CARDAV) ----- CASH MICHEL ([id number]) 1965 M [facility] Date Time Provider Department 07/22/24 GEORGE NORIEGA During your visit today, we recorded the following information about you: Sincere Jacobo 07/22/2024 3:08 PM Signed A request has been received from Dr. George Noriega to assist in scheduling a heart catheterization at [facility]. Called patient, obtain his voice mail, left a message with candy maker's direct phone number and to also refer to [facility] regarding dates of availability. Sincere Jacobo 08/07/2024 1:22 PM Signed Called patient, received message his voice mail is full. Submitted a SMS with candy maker's direct contact number [phone]. Attempted emergency contact for sister, Ludivina, luke is not in service. Jacobo Sincere Hernandez 08/14/2024 3:33 PM Addendum Spoke with patient, he opted for 09/10/2024 date. Reviewed lab request and procedure instructions. Created instructions as well, communicated with Dr. Garcia's medical screener, Arabella Larkin. She will personally offered to patient when he presents to his 08/20/2024 appointment. Sincere Jacobo 08/19/2024 9:28 AM Signed Addended by: SINCERE JACOBO on: 08/19/2024 09:28 AM Modules accepted: Orders Sincere Gu 09/09/2024 9:01 AM Signed Patient calling. Would like to cancel 09/10/[address] Noriega. Would like to re-schedule for mid-March. Asking for call back at [phone] to reschedule. Allergies As of Date: 07/22/2024 (No Known Allergies) Date Reviewed: 07/18/2024 Reviewed by: Liana Daly OCCA - Fully Assessed Reason for Visit: Procedure [88] Cmt: Heart cath Primary Visit Diagnosis: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) [I25.118] Order(s):COMPLETE BLOOD COUNT [SQCBC] Order #: [id number] FUTURE COMPREHENSIVE METABOLIC PANEL [SQCMP] Order #: [id number] FUTURE Prescriptions as of 09/13/2024 - amLODIPine [...] 07/13/2022 Neck pain [M54.2] 01/11/2023 Atherosclerosis of [place] arteries of extremity*02/15/2023 BMI 26.0-26.9,adult [Z68.26] 04/07/2023 [...] Status:Closed by SINCERE JACOBO on 07/22/24 Normal [facility] CBC panel Auto (Bld)on 07-18 Erythrocyte distribution width (RBC) [Ratio] 13.9 % 11.5 - 15.0 % [facility] Hematocrit (Bld) [Volume fraction] 38.8 % Low 39.0 - 51.0 % [facility] Hemoglobin (Bld) [Mass/Vol] 11.6 g/dL Low 13.0 - 17.0 g/dL [facility] Interpretation and review of laboratory results Abnormal [facility] MCH (RBC) [Entitic mass] 24.5 pg Low 26.0 - 34.0 pg [facility] MCHC (RBC) [Mass/Vol] 29.9 g/dL Low 30.5 - 36.0 g/dL [facility] MCV (RBC) [Entitic vol] 82.0 fL 80.0 - 100.0 fL [facility] Nucleated RBC (Bld) [#/Vol] NINF [facility] Platelet mean volume (Bld) [Entitic vol] 10.2 fL 9.0 - 12.7 fL [facility] Platelets (Bld) [#/Vol] 389 10*3/uL [facility] RBC (Bld) [#/Vol] 4.73 10*6/uL 4.20 - 6.00 m/uL [facility] WBC (Bld) [#/Vol] 9.39 10*3/uL [facility] Erythrocyte distribution width (RBC) [Ratio] 13.9 % Normal 11.5-15.0 [facility] Comment on above: Order Comment: Speci men Type: BLOOD SPECIMEN Ordering Facility[facility] Address: [address] [place] [address] Performed By: #### 5 8410-2 #### [facility] [place] [id number] [address] [place], [place] [address] [place] [address] OF [facility] Hematocrit (Bld) [Volume fraction] 38.8 % Low 39.0-51.0 [facility] Comment on above: Order Comment: Speci men Type: BLOOD SPECIMEN Ordering Facility[facility] Address: [address] [place] [address] Performed By: #### 5 8410-2 #### [facility] [place] [id number] [address] [place] [address] [place] Hemoglobin (Bld) [Mass/Vol] 11.6 g/dL Low 13.0-17.0 [facility] Comment on above: Order Comment: Speci men Type: BLOOD SPECIMEN Order[facility] Facility[facility] Address: [address] [place] [address] Performed By: #### 5 8410-2 #### [facility] [place] [id number] [address] [place] [address] [place] MCH (RBC) [Entitic mass] 24.5 pg Low 26.0-34.0 [facility] Comment on above: Order Comment: Speci men Type: BLOOD SPECIMEN Order[facility] Facility[facility] Address: [address] [place] [address] Performed By: #### 5 8410-2 #### [facility] [place] [id number] [address] [place] [address] [place] MCHC (RBC) [Mass/Vol] 29.9 g/dL Low 30.5-36.0 [facility] Comment on above: Order Comment: Speci men Type: BLOOD SPECIMEN Order[facility] Facility[facility] Address: [address] [place] [address] Performed By: #### 5 8410-2 #### [facility] [place] [id number] [address] [place] [address] [place] MCV (RBC) [Entitic vol] 82.0 fL Normal 80.0-100.0 [facility] Comment on above: Order Comment: Speci men Type: BLOOD SPECIMEN Order[facility] Facility[facility] Address: [address] [place] [address] Performed By: #### 5 8410-2 #### [facility] CLIA [id number] [address] [place] [address] [place] Nucleated RBC (Bld) [#/Vol] 10*3/uL Normal <0.01 [facility] [facility] Comment on above: Order Comment: Speci men Type: BLOOD SPECIMEN [facility]ing Facility[facility] Address: [address] [place] [address] Performed By: #### 5 8410-2 #### [facility] CLIA [id number] [address] [place] [address] [place] Platelet mean volume (Bld) [Entitic vol] 10.2 fL Normal 9.0-12.7 [facility] Comment on above: Order Comment: Speci men Type: BLOOD SPECIMEN Ordering Facility: [facility] Address: [address] [place] [address] Performed By: #### 5 8410-2 #### [facility] CLIA [id number] [address] [place] [address] [place] Platelets (Bld) [#/Vol] 389 10*3/uL Normal 150-400 [facility] Comment on above: Order Comment: Speci men Type: BLOOD SPECIMEN Ordering Facility: [facility] Address: [address] [place] [address] Performed By: #### 5 8410-2 #### [facility] CLIA [id number] [address] [place] [address] [place] RBC (Bld) [#/Vol] 4.73 10*6/uL Normal 4.20-6.00 [facility] Comment on above: Order Comment: Speci men Type: BLOOD SPECIMEN [facility]ing Facility: [facility] Address: [address] [place] [address] Performed By: #### 5 8410-2 #### [facility] CLIA [id number] [address] [place] [address] [place] WBC (Bld) [#/Vol] 9.39 10*3/uL Normal 3.70-11.00 [facility] Comment on above: Order Comment: Speci men Type: BLOOD SPECIMEN [facility]ing Facility[facility] Address: [address] [place] [address] Performed By: #### 5 8410-2 #### [facility] CLIA [id number] [address] [place] [address] [facility] CNOVon 07-18-2024 CNOV Office Visit (CARINF ) ----- CASH MICHEL ([id number]) 1965 M T Date Time Provider Department 07/18/24 3:00 PM GEORGE NORIEGA CARINF During your visit today, we recorded the following information about you: Pulse Blood pressure Weight Height 85/minute 146/86 83.6 kg 1.727 m George Noriega MD 07/18/2024 4:18 PM Formerly [facility], 1928–1983 Heart, Vascular and Thoracic [place] Jose De Jesus Bower Department of Cardiovascular Medicine SECTION OF INTERVENTIONAL CARDIOLOGY OUTPATIENT VISIT DATE 07/18/2024 OUTPATIENT VISIT TYPE Established PRIMARY CARE PHYSICIAN: Awilda Garcia [address] [address] REFERRING PHYSICIAN: Awilda Garcia [address] [facility] [address] CHIEF COMPLAINT: Patient presents with: Consult HISTORY [...] vomiting. He also notes that he has Hartley class III intermittent claudication worse in the [...] movements intact (more content not included)... Normal [facility] Comprehensive metabolic 2000 panelon 07-18-2024 Albumin [Mass/Vol] 4.0 g/dL 3.9 - 4.9 g/dL [facility] ALP [Catalytic activity/Vol] 68 U/L 38 - 113 U/L [facility] ALT [Catalytic activity/Vol] 14 U/L 10 - 54 U/L [facility] Anion gap [Moles/Vol] 9 mmol/L 8 - 15 mmol/L [facility] AST [Catalytic activity/Vol] 21 U/L 14 - 40 U/L [facility] Bilirubin [Mass/Vol] 0.3 mg/dL 0.2 - 1 .3 mg/dL [facility] Calcium [Mass/Vol] 9.1 mg/dL 8.5 - 10. 2 mg/dL [facility] Chloride [Moles/Vol] 107 mmol/L 98 - 10 7 mmol/L [facility] CO2 [Moles/Vol] 25 mmol/L 22 - 30 mmol/L [facility] Creatinine [Mass/Vol] 1.02 mg/dL 0.73 - 1.22 mg/dL [facility] GFR/1.73 sq M.predicted among non-blacks MDRD (S/P/Bld) [Vol rate/Area] 84 mL/min/{1.73_m2} - PINF [facility] Comment on above: Estimated Glomerular Filtration Rate [...] [Mass/Vol] 94 mg/dL 74 - 99 mg/dL [facility] Comment on above: The [place] Diab[place] s Association (ADA) provides guidance for [...] Standards of Medical Care in Diabetes 2016, [place] Diabetes Association. Diabetes Care. 2016.39(Suppl 1). Interpretation and review of laboratory results Normal [facility] Potassium [Moles/Vol] 4.1 mmol/L 3.7 - 5.1 mmol/L [facility] Protein [Mass/Vol] 7.5 g/dL 6.3 - 8.0 g/dL [facility] Sodium [Moles/Vol] 141 mmol/L 136 - 144 mmol/L [facility] Urea nitrogen [Mass/Vol] 13 mg/dL 9 - 24 mg/dL [facility] Albumin [Mass/Vol] 4.0 g/dL Normal 3.9-4.9 [facility] Comment on above: Order Comment: Speci men Type: BLOOD SPECIMEN [facility] Address: [address] [place] [address] Performed By: #### 2 4323-8 #### [facility] CLIA [id number] [address] [place] [address] [place] ALP [Catalytic activity/Vol] 68 U/L Normal 38-113 [facility] Comment on above: Order Comment: Speci men Type: BLOOD SPECIMEN [facility] Address: [address] [place] [address] Performed By: #### 2 4323-8 #### [facility] IA [id number] [address] [place] [address] [place] ALT [Catalytic activity/Vol] 14 U/L Normal 10-54 [facility] Comment on above: Order Comment: Speci men Type: BLOOD SPECIMEN [facility] Address: [address] [place] [address] Performed By: #### 2 4323-8 #### [facility] IA [id number] [address] [place] [address] [place] Anion gap [Moles/Vol] 9 mmol/L Normal 8-15 [facility] Comment on above: Order Comment: Speci men Type: BLOOD SPECIMEN [facility] Address: [address] [place] [address] Performed By: #### 2 4323-8 #### [facility] IA [id number] [address] [place] [address] [place] AST [Catalytic activity/Vol] 21 U/L Normal 14-40 [facility] Comment on above: Order Comment: Speci men Type: BLOOD SPECIMEN [facility] Address: [address] [place] [address] Performed By: #### 2 4323-8 #### [facility] CLIA [id number] [address] [place] [address] [place] Bilirubin [Mass/Vol] 0.3 mg/dL Normal 0.2-1.3 [facility] Comment on above: Order Comment: Speci men Type: BLOOD SPECIMEN [facility] Address: [address] [place] [address] Performed By: #### 2 4323-8 #### [facility] CLIA [id number] [address] [place] [address] [place] Calcium [Mass/Vol] 9.1 mg/dL Normal 8.5-10.2 [facility] Comment on above: Order Comment: Speci men Type: BLOOD SPECIMEN [facility] Address: [address] [place] [address] Performed By: #### 2 4323-8 #### [facility] CLIA [id number] [address] [place] [address] [place] Chloride [Moles/Vol] 107 mmol/L Normal 98-107 [facility] Comment on above: Order Comment: Speci men Type: BLOOD SPECIMEN [facility] Address: [address] [place] [address] Performed By: #### 2 4323-8 #### [facility] CLIA [id number] [address] [place] [address] [place] CO2 [Moles/Vol] 25 mmol/L Normal 22-30 [facility] ital Comment on above: Order Comment: Speci men Type: BLOOD SPECIMEN [facility] Address: [address] [place] [address] Performed By: #### 2 4323-8 #### [facility] CLIA [id number] [address] [place] [address] [place] Creatinine [Mass/Vol] 1.02 mg/dL Normal 0.73-1.22 [facility] Comment on above: Order Comment: Speci men Type: BLOOD SPECIMEN [facility] Address: [address] [place] [address] Performed By: #### 2 4323-8 #### [facility] CLIA [id number] [address] [facility] [place] [address] [place] Creatinine and Glomerular filtration rate.predicted panel (S/P/Bld) 84 mL/min/1.73m??? Normal >=60 [facility] Comment on above: Order Comment: Carlo howard Type: BLOOD SPECIMEN [facility] Address: [address] [place] [address] Result Comment: Marie mated Glomerular Filtration Rate [...] GFR. Performed By: #### 2 4323-8 #### [facility] CLIA [id number] [address] [facility] [place] [address] [place] Glucose [Mass/Vol] 94 mg/dL Normal 74-99 [facility] Comment on above: Order Comment: Carlo howard Type: BLOOD SPECIMEN [facility] Address: [address] [place] [address] Result Comment: The [place] Diabetes Association (ADA) provides guidance for cutoff [...] Standards of Medical Care in Diabetes 2016, [place] Diabetes Association. Diabetes Care. 2016.39(Suppl 1). Performed By: #### 2 4323-8 #### [facility] CLIA [id number] [address] [facility] [place] [address] [place] Potassium [Moles/Vol] 4.1 mmol/L Normal 3.7-5.1 [facility] Comment on above: Order Comment: Speci men Type: BLOOD SPECIMEN Ordering [facility] Address: [address] [place] [address] Performed By: #### 2 4323-8 #### [facility] CLIA [id number] [address] [place] [address] [place] Protein [Mass/Vol] 7.5 g/dL Normal 6.3-8.0 [facility] Comment on above: Order Comment: Speci men Type: BLOOD SPECIMEN [facility] Address: [address] [place] [address] Performed By: #### 2 4323-8 #### [facility] IA [id number] [address] [place] [address] [place] Sodium [Moles/Vol] 141 mmol/L Normal 136-144 [facility] Comment on above: Order Comment: Speci men Type: BLOOD SPECIMEN [facility] Address: [address] [place] [address] Performed By: #### 2 4323-8 #### [facility] IA [id number] [address] [place] [address] [place] Urea nitrogen [Mass/Vol] 13 mg/dL Normal 9-24 [facility] Comment on above: Order Comment: Speci men Type: BLOOD SPECIMEN [facility] Address: [address] [place] [address] Performed By: #### 2 4323-8 #### [facility] IA [id number] [address] [place] [address] [place] [id number] 07-18-2024 ECG01 Ventricular Rate : 8 5 BPM Atrial Rate : 85 BPM P-R Interval : 150 ms QRS Duration : 86 ms Q-T Interval : 370 ms QTC Calculation(Bazett) : 440 ms Calculated P [place] : 32 degrees Calculated R [place] : -10 degrees Calculated T [place] : 0 degrees NORMAL SINUS RHYTHM MINIMAL VOLTAGE CRITERIA FOR LVH, MAY BE NORMAL VARIANT ( R in aVL ) BORDERLINE ECG Confirmed by DEREK POLANCO MD ([id number]) on 07/19/2024 2:04:28 PM NAME : CASH MICHEL PID : [id number] : 1965 Gender : Male Race : [...] : , Acquired by : , Normal [facility] Absolute lymphocyte countOrd ered By: Nathanael Copeland on 09-23-2023 Lymphocytes Auto (Unsp spec) [#/Vol] 2.60 10*3/uL 0.83-4.51 [facility] Basophil percentageOrdered B y: Nathanael Copeland on 09-23-2023 Basophils/100 WBC (Bld) 0.9 % 0-1 [facility] Chloride [Moles/Vol] 107 mmol/L 98-107 [facility] Eosinophils/100 WBC (Bld) 1.7 % 0-5 [facility] Glucose [Mass/Vol] 108 mg/dL 74-106 [facility] Comment on above: Fasting Glucose resu lt from 100 to 125 mg/dL suggests IMPAIRED HOMEOSTASIS per A.D.A. criteria. Neutrophils (Bld) [#/Vol] 7.4 10*3/uL 2.0-7.7 [facility] Neutrophils/100 WBC (Bld) 64.4 % 47-70 [facility] Potassium [Moles/Vol] 3.7 mmol/L 3.5-5.1 [facility] Sodium [Moles/Vol] 137 mmol/L 136-145 [facility] WBC (Bld) [#/Vol] 11.5 10*3/uL 4.4-11.0 [facility] Blood erythrocytes count (nu mber/volume)Ordered By: Nathanael Copeland on 09-23-2023 RBC (Bld) [#/Vol] 4.86 10*6/uL 4.6-6.2 [facility] Blood hemoglobin measurement (mass/volume)Ordered By: Nathanael Copeland on 09-23-2023 Hemoglobin (Bld) [Mass/Vol] 13.2 g/dL 13.0-16.5 [facility] Blood lymphocytes/100 leukoc ytesOrdered By: Nathanael Copeland on 09-23-2023 Lymphocytes/100 WBC (Bld) 22.7 % 19-41 [facility] Blood monocytes/100 leukocyt esOrdered By: Nathanael Copeland on 09-23-2023 Monocytes/100 WBC (Bld) 10.0 % 0-10 [facility] Blood platelet mean volumeOr dered By: Nathanael Copeland on 09-23-2023 Platelet mean volume (Bld) [Entitic vol] 10.9 fL 6.2-12.0 [facility] Determination of erythrocyte mean corpuscular volume (MCV)Ordered By: Nathanael Copeland on 09-23-2023 MCV (RBC) [Entitic vol] 85.8 fL 80-94 [facility] Hematocrit Auto (Bld) [Volum e fraction]Ordered By: Nathanael Copeland on 09-23-2023 Hematocrit (Bld) [Volume fraction] 41.7 % 40-54 [facility] - Chemistry and C hemistry - challengeOrdered By: Nathanael Copeland on 09-23-2023 CO2 [Moles/Vol] 27.0 mmol/L 21.0-32.0 [facility] Urea nitrogen/Creatinine [Mass ratio] 17.5 mg/mg 10-20 [facility] - Hematology and Cell countsOrdered By: Nathanael Copeland on 09-23-2023 Erythrocyte distribution width (RBC) [Entitic vol] 40.5 fL 35.1-43.9 [facility] Erythrocyte distribution width (RBC) [Ratio] 13.0 % 11.6-14.6 [facility] Immature granulocytes/100 WBC (Bld) 0.300 % 0.0-0.9 [facility] Comment on above: IG% - Immature Granu locytes (promyelocytes, myelocytes and metamyelocytes) > 1% indicates that a LEFT SHIFT is Present. MCH (RBC) [Entitic mass] 27.2 pg 27.0-32.0 [facility] Nucleated RBC/100 WBC (Bld) [Ratio] 0 % 0-5 [facility] MCHC Auto (RBC) [Mass/Vol]Or dered By: Nathanael Copeland on 09-23-2023 MCHC (RBC) [Mass/Vol] 31.7 g/dL 32-36 [facility] No Panel InformationOrdered By: Nathanael Copeland on 09-23-2023 D-Dimer Quantitative (PE/DVT) 1.30 FEU/ug/m 0.27-0.49 [facility] Comment on above: D-Dimer ELEVATED (>0 .49): Additional studies and clinicalassessments are indicated to conclude diagnosis of:Deep Vein Thrombosis (DVT) or Pulmonary Embolism (PE)CRITICAL VALUE VERIFIED. CALLED TO OTHKSH04/23/23 183 Dianne Hamm.RESULTS READ BACK BY SAME . Estimated GFR (MDRD) Amer 84 mL/min >60 [facility] Comment on above: GFR Calc Estimated GFR (MDRD) Non-Af Amer 70 mL/min >60 [facility] Comment on above: Non- GFR Calc Troponin I High Sensitivity 8 pg/mL 3.0-78.0 [facility] Comment on above: Please Note: New [place] t Units and Gender Specific Reference Ranges. For more information see Policy Stat Procedure [place] High Sensitivity Troponin (TNIH) and attachments. Platelets bldOrdered By: Richard Copeland on 09-23-2023 Platelets (Bld) [#/Vol] 298 10*3/uL 150-450 [facility] Serum or plasma calcium valerie urement (mass/volume)Ordered By: Nathanael Copeland on 09-23-2023 Calcium [Mass/Vol] 9.8 mg/dL 8.5-10.1 [facility] Serum or plasma creatinine m easurement (mass/volume)Ordered By: Nathanael Copeland on 09-23-2023 Creatinine [Mass/Vol] 1.14 mg/dL 0.70-1.30 [facility] Comment on above: The validity of the calculated GFR & GFRAA in patients over 70 years has not been determined. Clinical correlation is essential. Serum or plasma urea nitroge n measurement (mass/volume)Ordered By: Nathanael Copeland on 09-23-2023 Urea nitrogen [Mass/Vol] 20 mg/dL 7-18 [facility] Thin prep Papanicolaou smear with manual screeningOrdered By: Nathanael Copeland on 09-23-2023 Thin prep Papanicolaou smear with manual screening 3 5-15 [facility] Absolute lymphocyte countOrd ered By: Ant Alvarez on 06-16-2023 Lymphocytes Auto (Unsp spec) [#/Vol] 2.32 10*3/uL 0.83-4.51 [facility] Basophil percentageOrdered B y: Ant Alvarez on 06-16-2023 Basophils/100 WBC (Bld) 0.3 % 0-1 [facility] Bilirubin [Mass/Vol] 0.60 mg/dL 0.20-1.00 [facility] Comment on above: For patients on eltr ombopag therapy, use of Dimension [place] TBIL is not recommended. Chloride [Moles/Vol] 107 mmol/L 98-107 [facility] Eosinophils/100 WBC (Bld) 1.4 % 0-5 [facility] Glucose [Mass/Vol] 107 mg/dL 74-106 [facility] Comment on above: Fasting Glucose resu lt from 100 to 125 mg/dL suggests IMPAIRED HOMEOSTASIS per A.D.A. criteria. Neutrophils (Bld) [#/Vol] 6.7 10*3/uL 2.0-7.7 [facility] Neutrophils/100 WBC (Bld) 64.8 % 47-70 [facility] Potassium [Moles/Vol] 3.4 mmol/L 3.5-5.1 [facility] Protein [Mass/Vol] 7.1 g/dL 6.4-8.2 [facility] Sodium [Moles/Vol] 137 mmol/L 136-145 [facility] WBC (Bld) [#/Vol] 10.4 10*3/uL 4.4-11.0 [facility] Blood erythrocytes count (nu mber/volume)Ordered By: Ant Alvarez on 06-16-2023 RBC (Bld) [#/Vol] 4.74 10*6/uL 4.6-6.2 [facility] Blood hemoglobin measurement (mass/volume)Ordered By: Ant Alvarez on 06-16-2023 Hemoglobin (Bld) [Mass/Vol] 13.1 g/dL 13.0-16.5 [facility] Blood lymphocytes/100 leukoc ytesOrdered By: Ant Antonio on 06-16-2023 Lymphocytes/100 WBC (Bld) 22.3 % 19-41 [facility] Blood monocytes/100 leukocyt esOrdered By: Ant Antonio on 06-16-2023 Monocytes/100 WBC (Bld) 10.8 % 0-10 [facility] Blood platelet mean volumeOr dered By: [facility] on 06-16-2023 Platelet mean volume (Bld) [Entitic vol] 10.4 fL 6.2-12.0 [facility] Determination of erythrocyte mean corpuscular volume (MCV)Ordered By: Ant Antonio on 06-16-2023 MCV (RBC) [Entitic vol] 86.9 fL 80-94 [facility] Hematocrit Auto (Bld) [Volum e fraction]Ordered By: Ant Antonio on 06-16-2023 Hematocrit (Bld) [Volume fraction] 41.2 % 40-54 [facility] - Chemistry and C hemistry - challengeOrdered By: Ant Antonio on 06-16-2023 ALP [Catalytic activity/Vol] 52 U/L 45-117 [facility] ALT [Catalytic activity/Vol] 15 U/L 16-61 [facility] CO2 [Moles/Vol] 27.0 mmol/L 21.0-32.0 [facility] Globulin (S) [Mass/Vol] 3.9 g/dL 2.2-4.2 [facility] Lipase [Catalytic activity/Vol] 47 U/L 13-75 [facility] Comment on above: Please note:LIPASE r evised reference range effective 23. New Lipase methodology. Expected to produce lower values than the previous assay method. NEW Reference Range: 13 - 75 U/L Natriuretic peptide B (Bld) [Mass/Vol] 4.3 pg/mL 0-100 [facility] Urea nitrogen/Creatinine [Mass ratio] 15.1 mg/mg 10-20 [facility] - Hematology and Cell countsOrdered By: Ant Antonio on 06-16-2023 Erythrocyte distribution width (RBC) [Entitic vol] 42.2 fL 35.1-43.9 [facility] Erythrocyte distribution width (RBC) [Ratio] 13.3 % 11.6-14.6 [facility] Immature granulocytes/100 WBC (Bld) 0.400 % 0.0-0.9 [facility] Comment on above: IG% - Immature Granu locytes (promyelocytes, myelocytes and metamyelocytes) > 1% indicates that a LEFT SHIFT is Present. MCH (RBC) [Entitic mass] 27.6 pg 27.0-32.0 [facility] Nucleated RBC/100 WBC (Bld) [Ratio] 0 % 0-5 [facility] MCHC Auto (RBC) [Mass/Vol]Or dered By: Ant Alvarez on 06-16-2023 MCHC (RBC) [Mass/Vol] 31.8 g/dL 32-36 [facility] No Panel InformationOrdered By: Ant Alvarez on 06-16-2023 Estimated Creatinine Clearance Calc 47.80 ml/min [facility] Estimated GFR (MDRD) Amer 57 mL/min >60 [facility] Comment on above: GFR Calc Estimated GFR (MDRD) Non-Af Amer 47 mL/min >60 [facility] Comment on above: Non- GFR Calc Troponin I High Sensitivity 4 pg/mL 3.0-78.0 [facility] Comment on above: Please Note: New [place] t Units and Gender Specific Reference Ranges. For more information see Policy Stat Procedure [place] High Sensitivity Troponin (TNIH) and attachments. Platelets bldOrdered By: Pj Alvarez on 06-16-2023 Platelets (Bld) [#/Vol] 241 10*3/uL 150-450 [facility] Serum or plasma albumin valerie urement (mass/volume)Ordered By: Ant Alvarez on 06-16-2023 Albumin [Mass/Vol] 3.2 g/dL 3.2-5.0 [facility] Serum or plasma albumin/glob ulin mass ratioOrdered By: Ant Alvarez on 06-16-2023 Albumin/Globulin [Mass ratio] 0.8 {ratio} 0.9-2.4 [facility] Serum or plasma calcium valerie urement (mass/volume)Ordered By: Ant Alvarez on 06-16-2023 Calcium [Mass/Vol] 8.7 mg/dL 8.5-10.1 [facility] Serum or plasma creatinine m easurement (mass/volume)Ordered By: Ant Alvarez on 06-16-2023 Creatinine [Mass/Vol] 1.59 mg/dL 0.70-1.30 [facility] Comment on above: The validity of the calculated GFR & GFRAA in patients over 70 years has not been determined. Clinical correlation is essential. Serum or plasma urea nitroge n measurement (mass/volume)Ordered By: Ant Alvarez on 06-16-2023 Urea nitrogen [Mass/Vol] 24 mg/dL 7- [facility] Thin prep Papanicolaou smear with manual screeningOrdered By: Ant Alvarez on 06-16-2023 Thin prep Papanicolaou smear with manual screening 12 U/L 15 [facility] Thin prep Papanicolaou smear with manual screening 3 02-13 [facility] COVID 19 (ONLY) RAPID (41000 )Ordered By: LESLEY Marquez on 05-31-2023 SARS-CoV-2 (COVID-19) RNA BRISEIDA+probe Ql (Unsp spec) Negative Normal [facility] Work Phone: Rapid Flu (39764 x 2)Ordered By: LESLEY Marquez on 05-31-2023 FLUAV Ag IA Ql (Throat) Negative Normal [facility]; [facility] Work Phone: CBC W Auto Differential pane l (Bld)on 05-15-2023 Basophils (Bld) [#/Vol] 0.07 10*3/uL Normal <0.11 [facility] Comment on above: Order Comment: Speci men Type: BLOOD SPECIMENOrdering Facility: [facility] Address: [address] [id number] Performed By: #### 5 7021-8 ####[facility]ORYCLIA [id number] [address] [facility] Basophils/100 WBC (Bld) 0.8 % Normal [facility] Comment on above: Order Comment: Speci men Type: BLOOD SPECIMENOrdering Facility: [facility] Address: [address] [address] Performed By: #### 5 7021-8 ####[facility] LABORATORYCLIA [id number] [address] Differential cell count method Nom (Bld) Auto Normal [facility] Comment on above: Order Comment: Speci men Type: BLOOD SPECIMENOrdering Facility: [facility] Address: [address] [address] Performed By: #### 5 7021-8 ####[facility] LABORATORYCLIA [id number] [place] [address] [place] Eosinophils (Bld) [#/Vol] 0.07 10*3/uL Normal <0.46 [facility] Comment on above: Order Comment: Speci men Type: BLOOD SPECIMENOrdering Facility: [facility] Address: [address] [place] [address] Performed By: #### 5 7021-8 ####[facility] LABORATORYCLIA [id number] [address] Eosinophils/100 WBC (Bld) 0.8 % Normal [facility] Comment on above: Order Comment: Speci men Type: BLOOD SPECIMENOrdering Facility: [facility] Address: [address] [address] Performed By: #### 5 7021-8 ####[facility]ORATORYCLIA [id number] [address] Erythrocyte distribution width (RBC) [Ratio] 13.2 % Normal 11.5-15.0 [facility] Comment on above: Order Comment: Speci men Type: BLOOD SPECIMENOrdering Facility: [facility] Address: [address] [address] Performed By: #### 5 7021-8 ####[facility] LABORATORYCLIA [id number] [address] [place] Hematocrit (Bld) [Volume fraction] 41.8 % Normal 39.0-51.0 [facility] Comment on above: Order Comment: Speci men Type: BLOOD SPECIMENOrdering Facility: [facility] Address: [address] [address] Performed By: #### 5 7021-8 ####ROSS LABORATORYCLIA [id number] [place] [address] [place] Hemoglobin (Bld) [Mass/Vol] 13.4 g/dL Normal 13.0-17.0 [facility] Comment on above: Order Comment: Speci men Type: BLOOD SPECIMENOrdering Facility: [facility] Address: [address] [place] [address] Performed By: #### 5 7021-8 ####ROSS LABORATORYCLIA [id number] [place] [address] [place] Immature granulocytes (Bld) [#/Vol] 0.03 10*3/uL Normal <0.10 [facility] Comment on above: Order Comment: Speci men Type: BLOOD SPECIMENOrdering Facility: [facility] Address: [address] [place] [address] Performed By: #### 5 7021-8 ####ROSS LABORATORYCLIA [id number] [address] [place] Immature granulocytes/100 WBC (Bld) 0.3 % Normal [facility] Comment on above: Order Comment: Speci men Type: BLOOD SPECIMENOrdering Facility: [facility] Address: [address] [place] [address] Performed By: #### 5 7021-8 ####ROSS LABORATORYCLIA [id number] [place] [address] [place] Lymphocytes (Bld) [#/Vol] 2.57 10*3/uL Normal 1.00-4.00 [facility] Comment on above: Order Comment: Speci men Type: BLOOD SPECIMENOrdering Facility: [facility] Address: [address] [place] [address] Performed By: #### 5 7021-8 ####ROSS LABORATORYCLIA [id number] [address] [place] Lymphocytes/100 WBC (Bld) 28.3 % Normal [facility] Comment on above: Order Comment: Speci men Type: BLOOD SPECIMENOrdering Facility: [facility] Address: [address] [place] [address] Performed By: #### 5 7021-8 ####ROSS LABORATORYCLIA [id number] [address] MCH (RBC) [Entitic mass] 27.1 pg Normal 26.0-34.0 [facility] Comment on above: Order Comment: Speci men Type: BLOOD SPECIMENOrdering Facility: [facility] Address: [address] [place] [address] Performed By: #### 5 7021-8 ####ROSS LABORATORYCLIA [id number] [address] MCHC (RBC) [Mass/Vol] 32.1 g/dL Normal 30.5-36.0 [facility] Comment on above: Order Comment: Speci men Type: BLOOD SPECIMENOrdering Facility: [facility] Address: [address] [place] [address] Performed By: #### 5 7021-8 ####ROSS LABORATORYCLIA [id number] [address] MCV (RBC) [Entitic vol] 84.4 fL Normal 80.0-100.0 [facility] Comment on above: Order Comment: Speci men Type: BLOOD SPECIMENOrdering Facility: [facility] Address: [address] [place] [address] Performed By: #### 5 7021-8 ####ROSS LABORATORYCLIA [id number] [address] Monocytes (Bld) [#/Vol] 0.77 10*3/uL Normal <0.87 [facility] Comment on above: Order Comment: Speci men Type: BLOOD SPECIMENOrdering Facility: [facility] Address: [address] [place] [address] Performed By: #### 5 7021-8 ####ROSS LABORATORYCLIA [id number] [address] Monocytes/100 WBC (Bld) 8.5 % Normal [facility] Comment on above: Order Comment: Speci men Type: BLOOD SPECIMENOrdering Facility: [facility] Address: [address] [place] [address] Performed By: #### 5 7021-8 ####ROSS LABORATORYCLIA [id number] [place] [address] [place] Neutrophils (Bld) [#/Vol] 5.57 10*3/uL Normal 1.45-7.50 [facility] Comment on above: Order Comment: Speci men Type: BLOOD SPECIMENOrdering Facility: [facility] Address: [address] [place] [address] Performed By: #### 5 7021-8 ####ROSS LABORATORYCLIA [id number] [address] [place] Neutrophils/100 WBC (Bld) 61.3 % Normal [facility] Comment on above: Order Comment: Speci men Type: BLOOD SPECIMENOrdering Facility: [facility] Address: [address] [place] [address] Performed By: #### 5 7021-8 ####ROSS LABORATORYCLIA [id number] [place] [address] [place] Nucleated RBC (Bld) [#/Vol] 10*3/uL Normal <0.01 [facility] Comment on above: Order Comment: Speci men Type: BLOOD SPECIMENOrdering Facility: [facility] Address: [address] [place] [address] Performed By: #### 5 7021-8 ####ROSS LABORATORYCLIA [id number] [address] Nucleated RBC/100 WBC (Bld) [Ratio] 0.0 /100 WBC Normal [facility] Comment on above: Order Comment: Speci men Type: BLOOD SPECIMENOrdering Facility: [facility] Address: [address] [place] [address] Performed By: #### 5 7021-8 ####ROSS LABORATORYCLIA [id number] [address] Platelet mean volume (Bld) [Entitic vol] 10.7 fL Normal 9.0-12.7 [facility] Comment on above: Order Comment: Speci men Type: BLOOD SPECIMENOrdering Facility: [facility] Address: [address] [place], [place] [address] [address] Performed By: #### 5 7021-8 ####ROSS LABORATORYCLIA [id number] [place] [address] [place] Platelets (Bld) [#/Vol] 270 10*3/uL Normal 150-400 [facility] Comment on above: Order Comment: Speci men Type: BLOOD SPECIMENOrdering Facility: [facility] Address: [address] [address] Performed By: #### 5 7021-8 ####ROSS LABORATORYCLIA [id number] [place] [address] [place] RBC (Bld) [#/Vol] 4.95 10*6/uL Normal 4.20-6.00 [facility] Comment on above: Order Comment: Speci men Type: BLOOD SPECIMENOrdering Facility: [facility] Address: [address] [place] [address] Performed By: #### 5 7021-8 ####ROSS LABORATORYCLIA [id number] [place] [address] [place] WBC (Bld) [#/Vol] 9.08 10*3/uL Normal 3.70-11.00 [facility] Comment on above: Order Comment: Speci men Type: BLOOD SPECIMENOrdering Facility: [facility] Address: [address] [address] Performed By: #### 5 7021-8 ####ROSS LABORATORYCLIA [id number] [place] [address] [place] Basophils (Bld) [#/Vol] 0.07 10*3/uL <0.11 k/uL [facility] Basophils/100 WBC (Bld) 0.8 % [facility] Differential cell count method Nom (Bld) Auto [facility] Eosinophils (Bld) [#/Vol] 0.07 10*3/uL <0.46 k/uL [facility] Eosinophils/100 WBC (Bld) 0.8 % [facility] Erythrocyte distribution width (RBC) [Ratio] 13.2 % 11.5 - 15.0 % [facility] Hematocrit (Bld) [Volume fraction] 41.8 % 39.0 - 51.0 % [facility] Hemoglobin (Bld) [Mass/Vol] 13.4 g/dL 13.0 - 17.0 g/dL [facility] Immature granulocytes (Bld) [#/Vol] 0.03 10*3/uL <0.10 k/uL [facility] Immature granulocytes/100 WBC (Bld) 0.3 % [facility] Lymphocytes (Bld) [#/Vol] 2.57 10*3/uL 1.00 - 4.00 k/uL [facility] Lymphocytes/100 WBC (Bld) 28.3 % [facility] MCH (RBC) [Entitic mass] 27.1 pg 26.0 - 34.0 pg [facility] MCHC (RBC) [Mass/Vol] 32.1 g/dL 30.5 - 36.0 g/dL [facility] MCV (RBC) [Entitic vol] 84.4 fL 80.0 - 100.0 fL [facility] Monocytes (Bld) [#/Vol] 0.77 10*3/uL <0.87 k/uL [facility] Monocytes/100 WBC (Bld) 8.5 % [facility] Neutrophils (Bld) [#/Vol] 5.57 10*3/uL 1.45 - 7.50 k/uL [facility] Neutrophils/100 WBC (Bld) 61.3 % [facility] Nucleated RBC (Bld) [#/Vol] <0.01 k/uL [facility] Nucleated RBC/100 WBC (Bld) [Ratio] 0.0 /100 WBC [facility] Platelet mean volume (Bld) [Entitic vol] 10.7 fL 9.0 - 12.7 fL [facility] Platelets (Bld) [#/Vol] 270 10*3/uL 150 - 400 k/uL [facility] RBC (Bld) [#/Vol] 4.95 10*6/uL 4.20 - 6.00 m/uL [facility] WBC (Bld) [#/Vol] 9.08 10*3/uL 3.70 - 11.00 k/uL [facility] IgE SerPl-aCncon 05-15-2023 IgE Qn 7.7 kU/l Normal <114.0 [facility] Comment on above: Order Comment: Speci men Type: BLOOD SPECIMENOrdering Facility: [facility] Address: [address] [place], [place] [id number] Performed By: #### 1 9113-0 ####[facility] LABCLIA [id number] [facility] [id number] [address] [place] SPIROMETRY - BASELINE AND PO ST DILATORon 05-15-2023 PLA35-02% POST (L/S) 2.58 L/S [facility] KNG16-32% PRE (L/S) 1.51 L/S [facility] FEV1 PRE (L) 1.82 L [facility] FEV1/FVC POST (%) 76 % [facility] FEV1/FVC PRE (%) 75 % [facility] FEV1_POST (L) 2.22 L [facility] FVC POST (L) 2.91 L [facility] FVC PRE (L) 2.43 L [facility] PEF POST (L/S) 3.33 L/S [facility] PEF PRE (L/S) 3.13 L/S [facility] SURGICAL PATHOLOGYOrdered By : Rios Tracy on 04-26-2023 Case Report Surgical Pathology R eport Case: [id number] Authorizing Provider: Roby Mock, Collected: 04/25/2023 10:40 AM Ordering Location: Ambulatory Surgery Received: 04/25/2023 09:43 PM Pathologist: Rios Tracy MD Specimen: ANTRUM (STOMACH) BIOPSY [facility] Work Phone: Diagnosis Comment j2cfqDJsCTRaaGYiYOWr Mlxhb xHsZSZvvMDyJ7YrkrabZQbxTE 0aHW5bzZixcASxdXObVJUiMbP ae9mqm178iHOav8rcLWGBkcaj cLa5tOrqF22zf9A8AtozW48ki WDvSJJ3CMCtKREscICxTYDjTR D7FCJwoNXbO7gdOZDePW6yolp pBVsrILxfCIRnlRL9GGWufJGb B4WvGEXePGqgWFPngjy1IyOuH m1raYSnkYecAWreGDMdNVIhPO dxPFLoJfNmYW7tXj1eiYwzaa6 bcelydprxjKLkU80tsHX8kZYa GTX5sXWuMIiuxCvze6ZxQ5Jve iBQeWxvcmkgbGlrZSBvcmdhbm fioQYfUSRlZAhiBZ81jOEnKXM lUbngnh56gFwyAPOEUlUlm6Ow xU2rMBQvSBJ8tO8qsm6rmGRnv Q== [facility] Work Phone: FINAL DIAGNOSIS s4cxdRYtCLQlvLYmSNKh Mlxhb cSfTWIxjCAlF2IjrxbiKWagTC 5aPN5aeTnchPNnmFFnFSFdZtZ jx7zvj365vBXgh1faTHNHtdjf wXc5vMvmO66jq6G5DgfgE93pb YZyFAM6ROHpNJQroPMbGVZrES N3PCSgbVLgM9ejALVlOK1rbzn tITugVSqwNYCkwAN2QLXahNTg G3GvITEpHFquUDYrhod0DqLvD r3fyPNdeJuiUBsvFZHjIWHrOR doFXZdNnNoIH9rOQC3l12zT2j oTKKffZT3wSsfNqnibRQ9Ngzh MFZkRVZTZCN2lvrmGHLtqLTlc XXqz0N0BZX9xEBocWIny7YnGU dpdGggbWlsZCBjaHJvbmljIGl qNYQ7vDCwOHocw0MucHArsmiz q1VuQRPraN7pblFqYFNryv9= [facility] Work Phone: Gross Description j7egxTXpJKPrsNWGWLA8 MDFcY H0qzQhicEu1yIjxEBDrtcL1mK NgLYjkv3ydNIY8l1ppfbFRZhs uQVCgXT3nCIwiILTxLN6pEiDy XGRlZmYxXHBhcGVydzEyMjQwX CMtrNXmeSA9XWFyMB3eitutLR lrDRmlXKThiuD5CYBagTTuQ1W yOWGwKZ4zhkboBLM7XCHSWxkp Nl8rgCTpkDjfVbWwEnBtGQPiE XZaXPGtmPsqIBVrEEm4gS6CFm kyXDZ1SYMFKsccQbpciHlqs1T jdCBcXHNnIFxcaWQgNTEwMDAg YZuwNzFTToLgIwZyVsE4TDN7A gHzMXm5ARnmQeREGYkrHGA4OS SmGKd2URhkWHdvvTEoRHLsNVA qPSEfHCugstL9s9rpFBQxkJNl VUX2VMxzw6adJHlrZRC7AQBnV gJpZCLmPZ4FWtDmMYT1YNTySG K6LjG8BLy7OZXRObJfPsFsVdM 5HZy7AoXbDPf4MLq9TBzWDfTy YLv1ZIB5MDi1EXY5JFf8ATOfI HQgMiBcXHNzIDMgXFxmbCBcXG 8irSfvMRBmFT3IHOLdXNsyMPH pIbFwMP4uBF8DMnXAZGoBHV6I PXJJMQRGHS6ZB4uiyOViY0ixy MHjGM1URRJmhdWeDGqqqLsghC 8kxGKoR5pbIuLkFatghOvdAaL zdERvYzEgDQpcbHRycGFyXGxp bjBccmluMCANClxmczIwIFJlY 8HmkcMeSFqtHYOlcr7wnEpvRX WtQOHofAo7xAWwTKZkrQJjEUJ is2ZhuRImYIWef6U0OXTrs2R4 RYApH7xbTMlawRzpSyQ5scOcU jNcqCPbFqQanFGcViPqN18lOR IssSZvrIpzj5IojXn0fBJoXYp wMJ0xLMNwIVIsXRI2FY1pRNTw gqELZpbiNIEkCOgMnc7eulFra HGnnX0ecUkhnmXbCNSzb4HcNX LrNIElX9ocrsYrOK9tYUXmgV7 pYywgOTUwMCBFdWNsaWQgQXZl QyhjJ9aaohBuKV8dDGJEYIM3V KX3VSlbWKXvZMvrzORcYP4ROy SjFSxvBkUaMqTtDrYuPtV7EXR NXHBhciANClxzYTMwXGVwaWNY z6ZbYIDUSiduhBceUmGflFQaI lV7ECEroXYoTOA7PE8xmXuxWQ BfQ6SvR2UvqxR1XHNwktXRXrj zKPQrTB0LOLPuAlEcYHr1 [facility] Work Phone: Performing Lab j2cwcQHxWZQuyETbBnTm MDAwX KYjn5hlJAMhlSUdMnGvYkYxMd CkVmdogCTvVLGbSgFsa6twd33 2gHYrx7vtMLJwVaN0eMHkZOOl yBPdC352ZRKgCZnpq2zfr1ZbH KMovZVsx9E6RLORtmreoLy9hX wcS46sm2Y0RxpmF3veRFBxYYC aE4PvER9jVHNcOqe1XTN3GQC8 UHXdRZIiO4IuAF4oGBBrxJIjD Aw7o3uszBhjCHNlBHJ2a5xeRM voahCiHR8kog3eoRp8n7jsiaA xFHAyVVVwkMQUODLkE5YovAay Ai4uwJc6xXkwYgmbRNR2Szl5C W0czt46bgz3fTguCGUvpujlEk Q8AHmvUEHcuhaiFGm9KSchNVB tmHT5GBWajRRrB7RuBPDeZL3d sod6DBN2UNqlQGCtAoQ1AFLaa RElAHUfdRpmSBifj687HPV4Uy UlYQ2zG5Rbh3S3jY4spWWiBBQ lhMToOgGeXQYxbv7rhKRkVHii o9HuEQY6pfR5uOGzhAGaAUCjO N85Snpdb0MxRqzhf9NkT39fyZ T3PQuaj1xuLG1oOiQ6ugAkLSy kq0ctrP7yJyK8ZZbgEU8mRA5v QTJvjS9lhcdqRYGgDiJttuafB YIaoRsjkrNpJt8lwDsrPKC6FX epD8hzjZ0qIkS8IMteT4deoR0 dMWk9JZfoaEM2BXGaoB0cGB1j vqoin8rpKXxwXFumQJDyouI4y fG9ZGZimQKkK8PddQ9wXBNtQP 7ijjnmg4guVSP0EVkoFVGiSCW 9EgHjJBAhh9Ogmkx4ZmJks9Ge rLPyQNkmT52go885QTWpgiTyQ 1xwbGFpblxwbGFpblxmMFxmcz W9QADgFURiLThaPSHiFMLvOuB cbGFuZzEwMzNcaGljaFxmMVxk OsSxGINuVVycI6xlRrBgVsPuO rRTrWTdsp5omKypVHttqLJwyJ PnpQY4uU8eVAFzpdYitt7ySHB xvJBIyXS4NBdepiPwK2mftxcq GLEpjLCzEKHvzQ64MYVEp1Mkw XRhbCwgMjAwMDAgSGFydmFyZC jzE6EgdqQxm6ZdcOtfVPe2boQ OZUL4DSIoCkVoKPGPLBvGZqAp CpNeHzT2SzLlYSOpkzkvCBZen PFtPLthpUCrwiaaTHydkpP8DU BsYWluXGYxXGZzMjJcbGFuZzE wMzNcaGljaFxmMVxkYmNoXGYx UDusQ2cdVdEuZ8ChRTRbVeLnn ECpF7eyHEZyd4YkdI8oiGCgiY ojbF4zTwAfYbHgKdwaPV4xYCV xT9xfbBZiNNHeKXFtW2xlJoWg bF8rwWmsGUqaloPwRBMuhbNar O9jKtDBHEGxoAzyZ9A8bwJaqD FuLCBNLkQuXHBhcn0= [facility] Work Phone: [facility] Work Phone: EGD Study observation Narrat karon 04-25-2023 [facility] Patient Name: Cash Michel Procedure Date: 04/25/2023 10:29 AM Date of : 1965 Admit Type: Outpatient Age: 58 Room: [address] [address] Gender: Male Note Status: Finalized Attending MD: [...] the patient. Procedure Code(s): --- Professional --- 92858, Esophagogastroduodenoscop y, flexible, transoral; with biopsy, single or multiple CPT copyright 2020 [employer] (more content not included)... PROVATION [facility] Radiology Study observation (narrative) [facility] CARDIAC PERF STRESS/PHARM on 04-17-2023 [facility] Farshad 04-05-2023 CNPN Telephone (PTMDRG) ----- TOMCASH ([id number]) 1965 M T Date Time Provider Department 04/05/23 ABIMBOLA PARTIDA PTMDRG During your visit today, we recorded the following information about you: Abimbola Partida, OIL WELL ENGINEER 04/05/2023 3:20 PM Signed Attempted to call patient regarding 3 no shows and policy to cancel future appointments. Phone number does not work Allergies As of Date: 04/05/2023 (No Known Allergies) Date Reviewed: 02/20/2023 Reviewed by: Evert Lauren MA - Fully Assessed Reason for Visit: No Show [1558] Cmt: Attempted to call patient regarding 3 [...] 07/13/2022 Neck pain [M54.2] 01/11/2023 Atherosclerosis of [place] arteries of extremity*02/15/2023 Encounter Status:Closed by ABIMBOLA PARTIDA [facility]05[facility] CNPN Tele[facility] (PTMDRG) ----- CASH MICHEL ([id number]) 1965 M T Date Time Provider Department [...] 07/13/2022 Neck pain [M54.2] 01/11/2023 Atherosclerosis of [place] arteries of extremity*02/15/2023 Encounter Status:Closed by GENIA CASTAÑEDA on 03/29/23 [facility] CNTHERAPYon 03-28-2023 CNTHERAPY OT/PT/Speech Visit (PTMDRG) ----- CASH MICHEL ([id number]) 1965 M T Date Time Provider Department 03/28/23 2:45 PM ABIMBOLA PARTIDA PTMG Date Time Provider Department Center 03/28/2023 2:45 PM [id number], SUSAN PTMDRG [facility] Reason for Visit: Physical Therapy [503] PT [...] % (flush) 10 mL (BD POSIFLUSH) ----- [facility] CNTHERAPYon 03-01-2023 CNTHERAPY OT/PT/Speech Visit (PTMDRG) ----- CASH MICHEL ([id number]) 1965 M CHT Date Time Provider Department 03/01/23 6:00 PM GENIA CASTAÑEDA PTMDRG Date Time Provider Department [place] 03/01/2023 6:00 PM [id number] CASTAÑEDA PTMDRG [facility] Reason for Visit: PT Progress Note [1596] Primary Visit Diagnosis:Neck pain [M54.2] Other Visit [...] % (flush) 10 mL (BD POSIFLUSH) ----- Normal [facility] Absolute lymphocyte countOrd ered By: ED PROVIDER on 02-08-2023 Lymphocytes Auto (Unsp spec) [#/Vol] 2.17 10*3/uL 0.83-4.51 [facility] Absolute lymphocyte countOrd ered By: Shreya Aparicioam on 02-08-2023 Lymphocytes Auto (Unsp spec) [#/Vol] 2.01 10*3/uL 0.83-4.51 [facility] Basophil percentageOrdered B y: ED PROVIDER on 02-08-2023 Basophils/100 WBC (Bld) 0.5 % 0-1 [facility] Chloride [Moles/Vol] 101 mmol/L 98-107 [facility] Eosinophils/100 WBC (Bld) 0.7 % 0-5 [facility] Glucose [Mass/Vol] 128 mg/dL 74-106 [facility] Comment on above: Fasting Glucose resu lt greater than or equal to 126 mg/dL suggests DIABETES MELLITUS per A.D.A. criteria. Neutrophils (Bld) [#/Vol] 6.4 10*3/uL 2.0-7.7 [facility] Neutrophils/100 WBC (Bld) 67.4 % 47-70 [facility] Potassium [Moles/Vol] 3.6 mmol/L 3.5-5.1 [facility] Sodium [Moles/Vol] 135 mmol/L 136-145 [facility] WBC (Bld) [#/Vol] 9.5 10*3/uL 4.4-11.0 [facility] Basophil percentageOrdered B y: Shreya Aparicioam on 02-08-2023 Basophil percentage 2.1 mg/dL 2.5-4.9 [facility] Basophils/100 WBC (Bld) 0.7 % 0-1 [facility] Bilirubin [Mass/Vol] 0.30 mg/dL 0.20-1.00 [facility] Comment on above: For patients on eltr ombopag therapy, use of Dimension [place] TBIL is not recommended. Chloride [Moles/Vol] 103 mmol/L 98-107 [facility] Eosinophils/100 WBC (Bld) 0.7 % 0-5 [facility] Glucose [Mass/Vol] 94 mg/dL 74-106 [facility] Neutrophils (Bld) [#/Vol] 6.8 10*3/uL 2.0-7.7 [facility] Neutrophils/100 WBC (Bld) 67.9 % 47-70 [facility] Potassium [Moles/Vol] 4.1 mmol/L 3.5-5.1 [facility] Protein [Mass/Vol] 8.0 g/dL 6.4-8.2 [facility] Sodium [Moles/Vol] 133 mmol/L 136-145 [facility] WBC (Bld) [#/Vol] 10.1 10*3/uL 4.4-11.0 [facility] Blood erythrocytes count (nu mber/volume)Ordered By: ED PROVIDER on 02-08-2023 RBC (Bld) [#/Vol] 5.28 10*6/uL 4.6-6.2 [facility] Blood erythrocytes count (nu mber/volume)Ordered By: Shreya Cat on 02-08-2023 RBC (Bld) [#/Vol] 5.25 10*6/uL 4.6-6.2 [facility] Blood hemoglobin measurement (mass/volume)Ordered By: ED PROVIDER on 02-08-2023 Hemoglobin (Bld) [Mass/Vol] 14.2 g/dL 13.0-16.5 [facility] Blood hemoglobin measurement (mass/volume)Ordered By: Shreya Cat on 02-08-2023 Hemoglobin (Bld) [Mass/Vol] 14.1 g/dL 13.0-16.5 [facility] Blood lymphocytes/100 leukoc ytesOrdered By: ED PROVIDER on 02-08-2023 Lymphocytes/100 WBC (Bld) 22.9 % 19- [facility] Blood lymphocytes/100 leukoc ytesOrdered By: Shreya Cat on 02-08-2023 Lymphocytes/100 WBC (Bld) 20.0 % -41 [facility] Blood monocytes/100 leukocyt esOrdered By: ED PROVIDER on 02-08-2023 Monocytes/100 WBC (Bld) 8.2 % 0-10 [facility] Blood monocytes/100 leukocyt esOrdered By: Shreya Cat on 02-08-2023 Monocytes/100 WBC (Bld) 10.2 % 0-10 [facility] Blood platelet mean volumeOr dered By: ED PROVIDER on 02-08-2023 Platelet mean volume (Bld) [Entitic vol] 10.5 fL 6.2-12.0 [facility] Blood platelet mean volumeOr dered By: Shreya Cat on 02-08-2023 Platelet mean volume (Bld) [Entitic vol] 10.8 fL 6.2-12.0 [facility] Determination of erythrocyte mean corpuscular volume (MCV)Ordered By: ED PROVIDER on 02-08-2023 MCV (RBC) [Entitic vol] 85.0 fL 80-94 [facility] Determination of erythrocyte mean corpuscular volume (MCV)Ordered By: Shreya Cat on 02-08-2023 MCV (RBC) [Entitic vol] 86.3 fL 80-94 [facility] Hematocrit Auto (Bld) [Volum e fraction]Ordered By: ED PROVIDER on 02-08-2023 Hematocrit (Bld) [Volume fraction] 44.9 % 40-54 [facility] Hematocrit Auto (Bld) [Volum e fraction]Ordered By: Shreya Cat on 02-08-2023 Hematocrit (Bld) [Volume fraction] 45.3 % 40-54 [facility] - Chemistry and C hemistry - challengeOrdered By: ED PROVIDER on 02-08-2023 CO2 [Moles/Vol] 25.0 mmol/L 21.0-32.0 [facility] Urea nitrogen/Creatinine [Mass ratio] 16.7 mg/mg 10-20 [facility] - Chemistry and C hemistry - challengeOrdered By: Shreya Cat on 02-08-2023 ALP [Catalytic activity/Vol] 64 U/L 45-117 [facility] ALT [Catalytic activity/Vol] 27 U/L 16-61 [facility] CO2 [Moles/Vol] 26.0 mmol/L 21.0-32.0 [facility] Globulin (S) [Mass/Vol] 4.3 g/dL 2.2-4.2 [facility] Magnesium [Mass/Vol] 2.5 mg/dL 1.6-2.6 [facility] Urea nitrogen/Creatinine [Mass ratio] 16.9 mg/mg 07-21 [facility] - Hematology and Cell countsOrdered By: ED PROVIDER on 02-08-2023 Erythrocyte distribution width (RBC) [Entitic vol] 39.7 fL 35.1-43.9 [facility] Erythrocyte distribution width (RBC) [Ratio] 12.9 % 11.6-14.6 [facility] Immature granulocytes/100 WBC (Bld) 0.300 % 0.0-0.9 [facility] Comment on above: IG% - Immature Granu locytes (promyelocytes, myelocytes and metamyelocytes) > 1% indicates that a LEFT SHIFT is Present. MCH (RBC) [Entitic mass] 26.9 pg 27.0-32.0 [facility] Nucleated RBC/100 WBC (Bld) [Ratio] 0 % 0- [facility] - Hematology and Cell countsOrdered By: Shreya Cat on 02-08-2023 Erythrocyte distribution width (RBC) [Entitic vol] 39.5 fL 35.1-43.9 [facility] Erythrocyte distribution width (RBC) [Ratio] 12.7 % 11.6-14.6 [facility] Immature granulocytes/100 WBC (Bld) 0.500 % 0.0-0.9 [facility] Comment on above: IG% - Immature Granu locytes (promyelocytes, myelocytes and metamyelocytes) > 1% indicates that a LEFT SHIFT is Present. MCH (RBC) [Entitic mass] 26.9 pg 27.0-32.0 [facility] Nucleated RBC/100 WBC (Bld) [Ratio] 0 % 0- [facility] MCHC Auto (RBC) [Mass/Vol]Or dered By: ED PROVIDER on 02-08-2023 MCHC (RBC) [Mass/Vol] 31.6 g/dL [facility] MCHC Auto (RBC) [Mass/Vol]Or dered By: Shreya Cat on 02-08-2023 MCHC (RBC) [Mass/Vol] 31.1 g/dL [facility] No Panel InformationOrdered By: ED PROVIDER on 02-08-2023 Estimated Creatinine Clearance Calc 61.07 ml/min [facility] Estimated GFR (MDRD) Amer 75 mL/min >60 [facility] Comment on above: GFR Calc Estimated GFR (MDRD) Non-Af Amer 62 mL/min >60 [facility] Comment on above: Non- GFR Calc Troponin I High Sensitivity 8 pg/mL 3.0-78.0 [facility] Comment on above: Please Note: New [place] t Units and Gender Specific Reference Ranges. For more information see Policy Stat Procedure [place] High Sensitivity Troponin (TNIH) and attachments. No Panel InformationOrdered By: Shreya Cat on 02-08-2023 D-Dimer Quantitative (PE/DVT) 1.08 FEU/ug/m 0.27-0.49 [facility] Comment on above: D-Dimer ELEVATED (>0 .49): Additional studies and clinicalassessments are indicated to conclude diagnosis of:Deep Vein Thrombosis (DVT) or Pulmonary Embolism (PE)CRITICAL VALUE VERIFIED. CALLED TO DR. BURGOS02/08/23 048 Dianne Hamm.RESULTS READ BACK BY SAME . Estimated GFR (MDRD) Amer 77 mL/min >60 [facility] Comment on above: GFR Calc Estimated GFR (MDRD) Non-Af Amer 63 mL/min >60 [facility] Comment on above: Non- GFR Calc Troponin I High Sensitivity 5 pg/mL 3.0-78.0 [facility] Comment on above: Please Note: New [place] t Units and Gender Specific Reference Ranges. For more information see Policy Stat Procedure [place] High Sensitivity Troponin (TNIH) and attachments. Platelets bldOrdered By: ED PROVIDER on 02-08-2023 Platelets (Bld) [#/Vol] 314 10*3/uL 150-450 [facility] Platelets bldOrdered By: Pipo Cat on 02-08-2023 Platelets (Bld) [#/Vol] 334 10*3/uL 150-450 [facility] Serum or plasma C reactive p rotein measurement (mass/volume)Ordered By: Shreya Cat on 02-08-2023 CRP [Mass/Vol] 3.41 mg/L 0.0-3.0 [facility] Comment on above: C-Reactive Protein ( CRP) provides useful information for thediagnosis, therapy and monitoring of inflammatory processesand associated diseases. For the evaluation of Relative Riskfor Cardiovascular Disease, a High Sensitivity CRP (HSCRP)should be ordered. Serum or plasma albumin valerie urement (mass/volume)Ordered By: Shreya Cat on 02-08-2023 Albumin [Mass/Vol] 3.7 g/dL 3.2-5.0 [facility] Serum or plasma albumin/glob ulin mass ratioOrdered By: Shreya Cat on 02-08-2023 Albumin/Globulin [Mass ratio] 0.9 {ratio} 0.9-2.4 [facility] Serum or plasma calcium valerie urement (mass/volume)Ordered By: ED PROVIDER on 02-08-2023 Calcium [Mass/Vol] 9.2 mg/dL 8.5-10.1 [facility] Serum or plasma calcium valerie urement (mass/volume)Ordered By: Shreya Cat on 02-08-2023 Calcium [Mass/Vol] 9.0 mg/dL 8.5-10.1 [facility] Serum or plasma creatinine m easurement (mass/volume)Ordered By: ED PROVIDER on 02-08-2023 Creatinine [Mass/Vol] 1.26 mg/dL 0.70-1.30 [facility] Comment on above: The validity of the calculated GFR & GFRAA in patients over 70 years has not been determined. Clinical correlation is essential. Serum or plasma creatinine m easurement (mass/volume)Ordered By: Shreya Cat on 02-08-2023 Creatinine [Mass/Vol] 1.24 mg/dL 0.70-1.30 [facility] Comment on above: The validity of the calculated GFR & GFRAA in patients over 70 years has not been determined. Clinical correlation is essential. Serum or plasma urea nitroge n measurement (mass/volume)Ordered By: ED PROVIDER on 02-08-2023 Urea nitrogen [Mass/Vol] 21 mg/dL 04-18 [facility] Serum or plasma urea nitroge n measurement (mass/volume)Ordered By: Shreya Cat on 02-08-2023 Urea nitrogen [Mass/Vol] 21 mg/dL 04-18 [facility] Thin prep Papanicolaou smear with manual screeningOrdered By: ED PROVIDER on 02-08-2023 Thin prep Papanicolaou smear with manual screening 9 5-15 [facility] Thin prep Papanicolaou smear with manual screeningOrdered By: Shreya Cat on 02-08-2023 Thin prep Papanicolaou smear with manual screening 23 U/L 15-37 [facility] Thin prep Papanicolaou smear with manual screening 4 5-15 [facility] CBC W Auto Differential pane l (Bld)on 01-31-2023 Basophils (Bld) [#/Vol] 0.09 10*3/uL <0.11 k/uL [facility] Basophils/100 WBC (Bld) 1.1 % [facility] Differential cell count method Nom (Bld) Auto [facility] Eosinophils (Bld) [#/Vol] 0.11 10*3/uL <0.46 k/uL [facility] Eosinophils/100 WBC (Bld) 1.4 % [facility] Erythrocyte distribution width (RBC) [Ratio] 13.2 % 11.5 - 15.0 % [facility] Hematocrit (Bld) [Volume fraction] 46.8 % 39.0 - 51.0 % [facility] Hemoglobin (Bld) [Mass/Vol] 14.8 g/dL 13.0 - 17.0 g/dL [facility] Immature granulocytes (Bld) [#/Vol] <0.10 k/uL [facility] Immature granulocytes/100 WBC (Bld) 0.3 % [facility] Lymphocytes (Bld) [#/Vol] 2.58 10*3/uL 1.00 - 4.00 k/uL [facility] Lymphocytes/100 WBC (Bld) 32.3 % [facility] MCH (RBC) [Entitic mass] 27.7 pg 26.0 - 34.0 pg [facility] MCHC (RBC) [Mass/Vol] 31.6 g/dL 30.5 - 36.0 g/dL [facility] MCV (RBC) [Entitic vol] 87.5 fL 80.0 - 100.0 fL [facility] Monocytes (Bld) [#/Vol] 0.68 10*3/uL <0.87 k/uL [facility] Monocytes/100 WBC (Bld) 8.5 % [facility] Neutrophils (Bld) [#/Vol] 4.52 10*3/uL 1.45 - 7.50 k/uL [facility] Neutrophils/100 WBC (Bld) 56.4 % [facility] Nucleated RBC (Bld) [#/Vol] <0.01 k/uL [facility] Nucleated RBC/100 WBC (Bld) [Ratio] 0.0 /100 WBC [facility] Platelet mean volume (Bld) [Entitic vol] 10.7 fL 9.0 - 12.7 fL [facility] Platelets (Bld) [#/Vol] 329 10*3/uL 150 - 400 k/uL [facility] RBC (Bld) [#/Vol] 5.35 10*6/uL 4.20 - 6.00 m/uL [facility] WBC (Bld) [#/Vol] 8.00 10*3/uL 3.70 - 11.00 k/uL [facility] CNTHERAPYon 01-27-2023 CNTHERAPY OT/PT/Speech Visit (PTMDRG) ----- CASH MICHEL ([id number]) 1965 M [facility] Date Time Provider Department 01/27/23 11:00 AM GENIA CASTAÑEDA PTMDRG Date Time Provider Department [place] 01/27/2023 11:00 AM [id number] CASTAÑEDA PTMDRG [facility] Reason for Visit: Physical Therapy [503] Primary [...] as needed for Wheezing/Shortness of Breath. ----- [facility] CNTHERAPYon 01-23-2023 CNTHERAPY OT/PT/Speech Visit (PTMDRG) ----- CASH MICHEL ([id number]) 1965 M T Date Time Provider Department 01/23/23 10:30 AM USMAN AVENDAÑO PTMGRETA Date Time Provider Department Center 01/23/2023 10:30 AM [id number] AVENDAÑO PTMGRETA [facility] Reason for Visit: Physical Therapy [503] Primary [...] as needed for Wheezing/Shortness of Breath. ----- [facility] CNTHERAPYon 01-13-2023 CNTHERAPY OT/PT/Speech Visit (PTMDRG) ----- CASH MICHEL ([id number]) 1965 M [facility] Date Time Provider Department 01/13/23 10:00 AM USMAN AVENDAÑO PTMDRG Date Time Provider Department [place] 01/13/2023 10:00 AM [id number] AVENDAÑO PTMDRG [facility] Reason for Visit: Physical Therapy [503] Primary [...] as needed for Wheezing/Shortness of Breath. ----- [facility] CNTHERAPYon 01-11-2023 CNTHERAPY OT/PT/Speech Visit (PTMDRG) ----- CASH MICHEL ([id number]) 1965 M T Date Time Provider Department 01/11/23 4:00 PM USMAN AVENDAÑO Date Time Provider Department [place] 01/11/2023 4:00 PM [id number] AVENDAÑO PTMG [facility] Reason for Visit: Physical Therapy [503] Primary [...] needed for Wheezing/Shortness of Breath. ----- Normal [facility] CNTHERAPYon 01-05-2023 CNTHERAPY OT/PT/Speech Visit (PTMDRG) ----- CASH MICHEL ([id number]) 1965 M [facility] Date Time Provider Department 01/05/23 1:45 PM GENIA CASTAÑEDA PTMDRG Date Time Provider Department Center 01/05/2023 1:45 PM [id number] CASTAÑEDA PTMDRG [facility] Reason for Visit: PT Eval [747] Patient [...] needed for Wheezing/Shortness of Breath. ----- Normal [facility] XR Cervical spine AP and Lat eral and obliqueon 12-29-2022 IMPRESSION: Mild degenerative disc disease and facet joint arthropathy. If there is persistent clinical concern for nondisplaced fracture, then CT or MRI is suggested. Moth Proofer: [facility] Transcribe Date/Time: Dec 29 2022 12:07P Dictated by : CA REED MD This examination was interpreted and the report reviewed and electronically signed by: CA REED MD on Dec 29 2022 12:09PM [facility] DIVISION OF RADIOLOGY * * *Final Report* [...] tissues are unremarkable. DIVISION OF RADIOLOGY Provider, [facility] - 12/29/2022 * * *Final Report* [...] fracture, then CT or MRI is suggested. Moth Proofer: [facility] Transcribe Date/Time: Dec 29 2022 12:07P Dictated by : CA REED MD This examination was interpreted and the report reviewed and electronically signed by: CA REED MD on Dec 29 2022 12:09PM EST [facility] No Panel InformationOrdered By: Ccf Provider on 12-20-2022 [facility] No Panel Informationon 12-20 Radiology Study observation (narrative) [facility] XR ELBOW GENERAL 2V AP/LAT L EFTon 12-20-2022 [facility] XR Elbow - left AP and Later corey 12-20-2022 IMPRESSION: No acute osseous injury. Findings suggestive olecranon bursitis. Moth Proofer: [facility] Transcribe Date/Time: Dec 20 2022 2:43P Dictated by : LARRY SAUCEDO MD This examination was interpreted and the report reviewed and electronically signed by: LARRY SAUCEDO MD on Dec 20 2022 2:44PM [facility] DIVISION OF RADIOLOGY * * *Final Report* [...] may reflect bursitis. DIVISION OF RADIOLOGY Provider, [facility] - 12/20/2022 * * *Final [...] acute osseous injury. Findings suggestive olecranon bursitis. Moth Proofer: [facility] Transcribe Date/Time: Dec 20 2022 2:43P Dictated by : LARRY SAUCEDO MD This examination was interpreted and the report reviewed and electronically signed by: LARRY SAUCEDO MD on Dec 20 2022 2:44PM EST [facility] XR SHOULDER GENERAL 3V OR MO RE AP/TRUE AP/OTHER LEFTon 12-20-2022 [facility] XR Shoulder - left 3 Viewson 12-20-2022 IMPRESSION: No acute osseous abnormality. Moth Proofer: [facility] Transcribe Date/Time: Dec 20 2022 2:45P Dictated [...] joint is intact. DIVISION OF RADIOLOGY Provider, [facility] - 12/20/2022 * * *Final [...] intact. IMPRESSION IMPRESSION: No acute osseous abnormality. Moth Proofer: [facility] Transcribe Date/Time: Dec 20 2022 2:45P Dictated by : LARRY SAUCEDO MD This examination was interpreted and the report reviewed and electronically signed by: LARRY SAUCEDO MD on Dec 20 2022 2:45PM [facility] INHOUSE COVID 19 (ONLY) RAPI D ([id number])Ordered By: Yvette Hernandez on 09-28-2022 SARS-CoV-2 (COVID-19) RNA BRISEIDA+probe Ql (Unsp spec) Negative [facility] Work Phone: Inhouse FLU A+B DIRECT AG, ( RAPID) ([id number])Ordered By: Yvette Hernandez on 09-28-2022 FLUAV+FLUBV Ag Ql (Unsp spec) Negative Normal [facility] Work Phone: Absolute lymphocyte counton 07-08-2022 Lymphocytes Auto (Unsp spec) [#/Vol] 1.48 10*3/uL 0.83-4.51 [facility] Work Phone: Basophil percentageon 2021 Basophils/100 WBC (Bld) 0.9 % 0-1 [facility] Work Phone: Chloride [Moles/Vol] 106 mmol/L 98-107 [facility] Work Phone: Eosinophils/100 WBC (Bld) 0.5 % 0-5 [facility] Work Phone: Glucose [Mass/Vol] 89 mg/dL 74-106 [facility] Work Phone: Neutrophils (Bld) [#/Vol] 3.8 10*3/uL 2.0-7.7 [facility] Work Phone: Neutrophils/100 WBC (Bld) 57.9 % 47-70 [facility] Work Phone: Potassium [Moles/Vol] 3.8 mmol/L 3.5-5.1 [facility] Work Phone: Sodium [Moles/Vol] 138 mmol/L 136-145 [facility] Work Phone: WBC (Bld) [#/Vol] 6.6 10*3/uL 4.4-11.0 [facility] Work Phone: Blood erythrocytes count (nu mber/volume)on 07-08-2022 RBC (Bld) [#/Vol] 5.50 10*6/uL 4.6-6.2 [facility] Work Phone: Blood hemoglobin measurement (mass/volume)on 07-08-2022 Hemoglobin (Bld) [Mass/Vol] 15.0 g/dL 13.0-16.5 [facility] Work Phone: Blood lymphocytes/100 leukoc yteson 07-08-2022 Lymphocytes/100 WBC (Bld) 22.4 % 19-41 [facility] Work Phone: Blood monocytes/100 leukocyt eson 07-08-2022 Monocytes/100 WBC (Bld) 18.0 % 0-10 [facility] Work Phone: Blood platelet mean volumeon 07-08-2022 Platelet mean volume (Bld) [Entitic vol] 10.8 fL 6.2-12.0 [facility] Work Phone: Determination of erythrocyte mean corpuscular volume (MCV)on 07-08-2022 MCV (RBC) [Entitic vol] 84.7 fL 80-94 [facility] Work Phone: Hematocrit Auto (Bld) [Volum e fraction]on 07-08-2022 Hematocrit (Bld) [Volume fraction] 46.6 % 40-54 [facility] Work Phone: Laboratory - Chemistry and C hemistry - challengeon 07-08-2022 CO2 [Moles/Vol] 25.0 mmol/L 21.0-32.0 [facility] Work Phone: Natriuretic peptide B (Bld) [Mass/Vol] 13.7 pg/mL 0-100 [facility] Work Phone: Urea nitrogen/Creatinine [Mass ratio] 13.2 mg/mg 10-20 [facility] Work Phone: Laboratory - Hematology and Cell countson 07-08-2022 Erythrocyte distribution width (RBC) [Entitic vol] 41.7 fL 35.1-43.9 [facility] Work Phone: Erythrocyte distribution width (RBC) [Ratio] 13.5 % 11.6-14.6 [facility] Work Phone: Immature granulocytes/100 WBC (Bld) 0.300 % 0.0-0.9 [facility] Work Phone: Comment on above: IG% - Immature Granu locytes (promyelocytes, myelocytes and metamyelocytes) > 1% indicates that a LEFT SHIFT is Present. MCH (RBC) [Entitic mass] 27.3 pg 27.0-32.0 [facility] Work Phone: Nucleated RBC/100 WBC (Bld) [Ratio] 0 % 0-5 [facility] Work Phone: MCHC Auto (RBC) [Mass/Vol]on 07-08-2022 MCHC (RBC) [Mass/Vol] 32.2 g/dL 32-36 [facility] Work Phone: No Panel Informationon 07-08 Troponin I High Sensitivity 7 pg/mL 3.0-78.0 [facility] Work Phone: Comment on above: Please Note: New [place] t Units and Gender Specific Reference Ranges. For more information see Policy Stat Procedure [place] High Sensitivity Troponin (TNIH) and attachments. Estimated Creatinine Clearance Calc 55.64 ml/min [facility] Work Phone: Estimated GFR (MDRD) Amer 73 mL/min >60 [facility] Work Phone: Comment on above: GFR Calc Estimated GFR (MDRD) Non-Af Amer 61 mL/min >60 [facility] Work Phone: Comment on above: Non- GFR Calc Platelets bldon 07-08-2022 Platelets (Bld) [#/Vol] 244 10*3/uL 150-450 [facility] Work Phone: Serum or plasma calcium valerie urement (mass/volume)on 07-08-2022 Calcium [Mass/Vol] 9.0 mg/dL 8.5-10.1 [facility] Work Phone: Serum or plasma creatinine m easurement (mass/volume)on 07-08-2022 Creatinine [Mass/Vol] 1.29 mg/dL 0.70-1.30 [facility] Work Phone: Comment on above: The validity of the calculated GFR & GFRAA in patients over 70 years has not been determined. Clinical correlation is essential. Serum or plasma urea nitroge n measurement (mass/volume)on 07-08-2022 Urea nitrogen [Mass/Vol] 17 mg/dL 7-18 [facility] Work Phone: Thin prep Papanicolaou smear with manual screeningon 07-08-2022 Thin prep Papanicolaou smear with manual screening 7 5-15 [facility] Work Phone: Absolute lymphocyte counton 06-22-2022 Lymphocytes Auto (Unsp spec) [#/Vol] 2.49 10*3/uL 0.83-4.51 [facility] Work Phone: Basophil percentageon 2021 Basophils/100 WBC (Bld) 0.8 % 0-1 [facility] Work Phone: Chloride [Moles/Vol] 107 mmol/L 98-107 [facility] Work Phone: Eosinophils/100 WBC (Bld) 1.8 % 0-5 [facility] Work Phone: Glucose [Mass/Vol] 94 mg/dL 74-106 [facility] Work Phone: Neutrophils (Bld) [#/Vol] 4.3 10*3/uL 2.0-7.7 [facility] Work Phone: Neutrophils/100 WBC (Bld) 55.4 % 47-70 [facility] Work Phone: Potassium [Moles/Vol] 3.5 mmol/L 3.5-5.1 [facility] Work Phone: Sodium [Moles/Vol] 142 mmol/L 136-145 [facility] Work Phone: WBC (Bld) [#/Vol] 7.8 10*3/uL 4.4-11.0 [facility] Work Phone: Blood erythrocytes count (nu mber/volume)on 06-22-2022 RBC (Bld) [#/Vol] 4.76 10*6/uL 4.6-6.2 [facility] Work Phone: Blood hemoglobin measurement (mass/volume)on 06-22-2022 Hemoglobin (Bld) [Mass/Vol] 13.2 g/dL 13.0-16.5 [facility] Work Phone: Blood lymphocytes/100 leukoc yteson 06-22-2022 Lymphocytes/100 WBC (Bld) 32.1 % 19-41 [facility] Work Phone: Blood monocytes/100 leukocyt eson 06-22-2022 Monocytes/100 WBC (Bld) 9.5 % 0-10 [facility] Work Phone: Blood platelet mean volumeon 06-22-2022 Platelet mean volume (Bld) [Entitic vol] 11.0 fL 6.2-12.0 [facility] Work Phone: Determination of erythrocyte mean corpuscular volume (MCV)on 06-22-2022 MCV (RBC) [Entitic vol] 86.3 fL 80-94 [facility] Work Phone: Hematocrit Auto (Bld) [Volum e fraction]on 06-22-2022 Hematocrit (Bld) [Volume fraction] 41.1 % 40-54 [facility] Work Phone: Laboratory - Chemistry and C hemistry - challengeon 06-22-2022 CO2 [Moles/Vol] 27.0 mmol/L 21.0-32.0 [facility] Work Phone: Urea nitrogen/Creatinine [Mass ratio] 17.1 mg/mg 10-20 [facility] Work Phone: Laboratory - Hematology and Cell countson 06-22-2022 Erythrocyte distribution width (RBC) [Entitic vol] 40.0 fL 35.1-43.9 [facility] Work Phone: Erythrocyte distribution width (RBC) [Ratio] 12.8 % 11.6-14.6 [facility] Work Phone: Immature granulocytes/100 WBC (Bld) 0.400 % 0.0-0.9 [facility] Work Phone: Comment on above: IG% - Immature Granu locytes (promyelocytes, myelocytes and metamyelocytes) > 1% indicates that a LEFT SHIFT is Present. MCH (RBC) [Entitic mass] 27.7 pg 27.0-32.0 [facility] Work Phone: Nucleated RBC/100 WBC (Bld) [Ratio] 0 % 0-5 [facility] Work Phone: MCHC Auto (RBC) [Mass/Vol]on 06-22-2022 MCHC (RBC) [Mass/Vol] 32.1 g/dL 32-36 [facility] Work Phone: No Panel Informationon 06-22 Troponin I High Sensitivity 4 pg/mL 3.0-78.0 [facility] Work Phone: Comment on above: Please Note: New [place] t Units and Gender Specific Reference Ranges. For more information see Policy Stat Procedure [place] High Sensitivity Troponin (TNIH) and attachments. Estimated Creatinine Clearance Calc 76.95 ml/min [facility] Work Phone: Estimated GFR (MDRD) Amer 99 mL/min >60 [facility] Work Phone: Comment on above: GFR Calc Estimated GFR (MDRD) Non-Af Amer 82 mL/min >60 [facility] Work Phone: Comment on above: Non- GFR Calc Platelets bldon 06-22-2022 Platelets (Bld) [#/Vol] 313 10*3/uL 150-450 [facility] Work Phone: Serum or plasma calcium valerie urement (mass/volume)on 06-22-2022 Calcium [Mass/Vol] 8.8 mg/dL 8.5-10.1 [facility] Work Phone: Serum or plasma creatinine m easurement (mass/volume)on 06-22-2022 Creatinine [Mass/Vol] 1.00 mg/dL 0.70-1.30 [facility] Work Phone: Comment on above: The validity of the calculated GFR & GFRAA in patients over 70 years has not been determined. Clinical correlation is essential. Serum or plasma urea nitroge n measurement (mass/volume)on 06-22-2022 Urea nitrogen [Mass/Vol] 17 mg/dL 7-18 [facility] Work Phone: Thin prep Papanicolaou smear with manual screeningon 06-22-2022 Thin prep Papanicolaou smear with manual screening 8 5-15 [facility] Work Phone: Absolute lymphocyte counton 06-10-2022 Lymphocytes Auto (Unsp spec) [#/Vol] 2.51 10*3/uL 0.83-4.51 [facility] Work Phone: Basophil percentageon 2021 Basophils/100 WBC (Bld) 0.6 % 0-1 [facility] Work Phone: Chloride [Moles/Vol] 110 mmol/L 98-107 [facility] Work Phone: Eosinophils/100 WBC (Bld) 3.2 % 0-5 [facility] Work Phone: Glucose [Mass/Vol] 79 mg/dL 74-106 [facility] Work Phone: Neutrophils (Bld) [#/Vol] 5.0 10*3/uL 2.0-7.7 [facility] Work Phone: Neutrophils/100 WBC (Bld) 57.9 % 47-70 [facility] Work Phone: Potassium [Moles/Vol] 3.6 mmol/L 3.5-5.1 [facility] Work Phone: Sodium [Moles/Vol] 142 mmol/L 136-145 [facility] Work Phone: WBC (Bld) [#/Vol] 8.6 10*3/uL 4.4-11.0 [facility] Work Phone: Blood erythrocytes count (nu mber/volume)on 06-10-2022 RBC (Bld) [#/Vol] 4.69 10*6/uL 4.6-6.[facility] Work [facility]: Blood hemoglobin measurement (mass/volume)on 06-10-2022 Hemoglobin (Bld) [Mass/Vol] 13.1 g/dL 13.0-16.5 [facility] Work Phone: Blood lymphocytes/100 leukoc yteson 06-10-2022 Lymphocytes/100 WBC (Bld) 29.3 % 19-41 [facility] Work Phone: Blood monocytes/100 leukocyt eson 06-10-2022 Monocytes/100 WBC (Bld) 8.8 % 0-10 [facility] Work Phone: Blood platelet mean volumeon 06-10-2022 Platelet mean volume (Bld) [Entitic vol] 10.2 fL 6.2-12.0 [facility] Work Phone: Determination of erythrocyte mean corpuscular volume (MCV)on 06-10-2022 MCV (RBC) [Entitic vol] 86.1 fL 80-94 [facility] Work Phone: Hematocrit Auto (Bld) [Volum e fraction]on 06-10-2022 Hematocrit (Bld) [Volume fraction] 40.4 % 40-54 [facility] Work Phone: Laboratory - Chemistry and C hemistry - challengeon 06-10-2022 CO2 [Moles/Vol] 27.0 mmol/L 21.0-32.0 [facility] Work Phone: Natriuretic peptide B (Bld) [Mass/Vol] 36.6 pg/mL 0-100 [facility] Work Phone: Urea nitrogen/Creatinine [Mass ratio] 13.1 mg/mg 10-20 [facility] Work Phone: Laboratory - Hematology and Cell countson 06-10-2022 Erythrocyte distribution width (RBC) [Entitic vol] 39.9 fL 35.1-43.9 [facility] Work Phone: Erythrocyte distribution width (RBC) [Ratio] 12.8 % 11.6-14.6 [facility] Work Phone: Immature granulocytes/100 WBC (Bld) 0.200 % 0.0-0.9 [facility] Work Phone: Comment on above: IG% - Immature Granu locytes (promyelocytes, myelocytes and metamyelocytes) > 1% indicates that a LEFT SHIFT is Present. MCH (RBC) [Entitic mass] 27.9 pg 27.0-32.0 [facility] Work Phone: Nucleated RBC/100 WBC (Bld) [Ratio] 0 % 0-5 [facility] Work Phone: MCHC Auto (RBC) [Mass/Vol]on 06-10-2022 MCHC (RBC) [Mass/Vol] 32.4 g/dL 32-36 [facility] Work Phone: No Panel Informationon 06-10 Estimated GFR (MDRD) Amer 99 mL/min >60 [facility] Work Phone: Comment on above: GFR Calc Estimated GFR (MDRD) Non-Af Amer 82 mL/min >60 [facility] Work Phone: Comment on above: Non- GFR Calc Platelets bldon 06-10-2022 Platelets (Bld) [#/Vol] 340 10*3/uL 150-450 [facility] Work Phone: Serum or plasma calcium valerie urement (mass/volume)on 06-10-2022 Calcium [Mass/Vol] 8.9 mg/dL 8.5-10.1 [facility] Work Phone: Serum or plasma creatinine m easurement (mass/volume)on 06-10-2022 Creatinine [Mass/Vol] 1.00 mg/dL 0.70-1.30 [facility] Work Phone: Comment on above: The validity of the calculated GFR & GFRAA in patients over 70 years has not been determined. Clinical correlation is essential. Serum or plasma urea nitroge n measurement (mass/volume)on 06-10-2022 Urea nitrogen [Mass/Vol] 13 mg/dL 7-18 [facility] Work Phone: Thin prep Papanicolaou smear with manual screeningon 06-10-2022 Thin prep Papanicolaou smear with manual screening 5 5-15 [facility] Work Phone: Absolute lymphocyte counton 06-03-2022 Lymphocytes Auto (Unsp spec) [#/Vol] 2.27 10*3/uL 0.83-4.51 [facility] Work Phone: Basophil percentageon 2021 Basophils/100 WBC (Bld) 0.6 % 0-1 [facility] Work Phone: Bilirubin [Mass/Vol] 0.20 mg/dL 0.20-1.00 [facility] Work Phone: Comment on above: For patients on eltr ombopag therapy, use of Dimension [place] TBIL is not recommended. Chloride [Moles/Vol] 111 mmol/L 98-107 [facility] Work Phone: Eosinophils/100 WBC (Bld) 4.4 % 0-5 [facility] Work Phone: Glucose [Mass/Vol] 112 mg/dL 74-106 [facility] Work Phone: Comment on above: Fasting Glucose resu lt from 100 to 125 mg/dL suggests IMPAIRED HOMEOSTASIS per A.D.A. criteria. Neutrophils (Bld) [#/Vol] 4.3 10*3/uL 2.0-7.7 [facility] Work Phone: Neutrophils/100 WBC (Bld) 55.1 % 47-70 [facility] Work Phone: Potassium [Moles/Vol] 3.5 mmol/L 3.5-5.1 [facility] Work Phone: Protein [Mass/Vol] 7.3 g/dL 6.4-8.2 [facility] Work Phone: Sodium [Moles/Vol] 142 mmol/L 136-145 [facility] Work Phone: WBC (Bld) [#/Vol] 7.7 10*3/uL 4.4-11.0 [facility] Work Phone: Blood erythrocytes count (nu mber/volume)on 06-03-2022 RBC (Bld) [#/Vol] 4.88 10*6/uL 4.6-6.2 [facility] Work Phone: Blood hemoglobin measurement (mass/volume)on 06-03-2022 Hemoglobin (Bld) [Mass/Vol] 13.5 g/dL 13.0-16.5 [facility] Work Phone: Blood lymphocytes/100 leukoc yteson 06-03-2022 Lymphocytes/100 WBC (Bld) 29.4 % 19-41 [facility] Work Phone: Blood monocytes/100 leukocyt eson 06-03-2022 Monocytes/100 WBC (Bld) 10.2 % 0-10 [facility] Work Phone: Blood platelet mean volumeon 06-03-2022 Platelet mean volume (Bld) [Entitic vol] 10.6 fL 6.2-12.0 [facility] Work Phone: Determination of erythrocyte mean corpuscular volume (MCV)on 06-03-2022 MCV (RBC) [Entitic vol] 87.3 fL 80-94 [facility] Work Phone: Direct bilirubinon Bilirubin.direct [Mass/Vol] 0.08 mg/dL 0.00-0.30 [facility] Work Phone: Glucose Glucometer (BldC) [M ass/Vol]on 06-03-2022 Glucose [Mass/Vol] 116 mg/dL 74-106 [facility] Work Phone: Comment on above: MANAGEMENT OF PATIEN T CARE PER NURSING PROTOCOL Hematocrit Auto (Bld) [Volum e fraction]on 06-03-2022 Hematocrit (Bld) [Volume fraction] 42.6 % 40-54 [facility] Work Phone: INR in Blood by Coagulation assayon 06-03-2022 INR Coag (Bld) [Relative time] 1.0 {INR} [facility] Work Phone: Laboratory - Chemistry and C hemistry - challengeon 06-03-2022 ALP [Catalytic activity/Vol] 60 U/L 45-117 [facility] Work Phone: ALT [Catalytic activity/Vol] 22 U/L 16-61 [facility] Work Phone: CO2 [Moles/Vol] 25.0 mmol/L 21.0-32.0 [facility] Work Phone: Globulin (S) [Mass/Vol] 4.2 g/dL 2.2-4.2 [facility] Work Phone: Magnesium [Mass/Vol] 2.6 mg/dL 1.6-2.6 [facility] Work Phone: Urea nitrogen/Creatinine [Mass ratio] 12.3 mg/mg 10-20 [facility] Work Phone: Laboratory - Coagulationon 0 06-03-2022 PT Coag (PPP) [Time] 12.5 s 11.7-14.9 [facility] Work Phone: Laboratory - Hematology and Cell countson 06-03-2022 Erythrocyte distribution width (RBC) [Entitic vol] 41.3 fL 35.1-43.9 [facility] Work Phone: Erythrocyte distribution width (RBC) [Ratio] 13.0 % 11.6-14.6 [facility] Work Phone: Immature granulocytes/100 WBC (Bld) 0.300 % 0.0-0.9 [facility] Work Phone: Comment on above: IG% - Immature Granu locytes (promyelocytes, myelocytes and metamyelocytes) > 1% indicates that a LEFT SHIFT is Present. MCH (RBC) [Entitic mass] 27.7 pg 27.0-32.0 [facility] Work Phone: Nucleated RBC/100 WBC (Bld) [Ratio] 0 % 0-5 [facility] Work Phone: MCHC Auto (RBC) [Mass/Vol]on 06-03-2022 MCHC (RBC) [Mass/Vol] 31.7 g/dL 32-36 [facility] Work Phone: No Panel Informationon 06-03 Troponin I High Sensitivity 7 pg/mL 3.0-78.0 [facility] Work Phone: Comment on above: Please Note: New Leigh t Units and Gender Specific Reference Ranges. For more information see Policy Stat Procedure [place] High Sensitivity Troponin (TNIH) and attachments. D-Dimer Quantitative (PE/DVT) 0.94 FEU/ug/m 0.27-0.49 [facility] Work Phone: Comment on above: D-Dimer ELEVATED (>0 .49): Additional studies and clinicalassessments are indicated to conclude diagnosis of:Deep Vein Thrombosis (DVT) or Pulmonary Embolism (PE)CRITICAL VALUE VERIFIED. CALLED TO IKYRWQ24/02/22 1625 Dianne Hamm.RESULTS READ BACK BY SAME . Estimated Creatinine Clearance Calc 79.33 ml/min [facility] Work Phone: Estimated GFR (MDRD) Amer 101 mL/min >60 [facility] Work Phone: Comment on above: GFR Calc Estimated GFR (MDRD) Non-Af Amer 84 mL/min >60 [facility] Work Phone: Comment on above: Non- GFR Calc Platelets bldon 06-03-2022 Platelets (Bld) [#/Vol] 271 10*3/uL 150-450 [facility] Work Phone: Serum or plasma albumin valerie urement (mass/volume)on 06-03-2022 Albumin [Mass/Vol] 3.1 g/dL 3.2-5.0 [facility] Work Phone: Serum or plasma calcium valerie urement (mass/volume)on 06-03-2022 Calcium [Mass/Vol] 8.5 mg/dL 8.5-10.1 [facility] Work Phone: Serum or plasma creatinine m easurement (mass/volume)on 06-03-2022 Creatinine [Mass/Vol] 0.97 mg/dL 0.70-1.30 [facility] Work Phone: Comment on above: The validity of the calculated GFR & GFRAA in patients over 70 years has not been determined. Clinical correlation is essential. Serum or plasma urea nitroge n measurement (mass/volume)on 06-03-2022 Urea nitrogen [Mass/Vol] 12 mg/dL 7-18 [facility] Work Phone: Thin prep Papanicolaou smear with manual screeningon 06-03-2022 Thin prep Papanicolaou smear with manual screening 16 U/L 15-37 [facility] Work Phone: Thin prep Papanicolaou smear with manual screening 6 5-15 [facility] Work Phone: 2018 Novel Coronavirus (COVI D-19), BRISEIDA ([id number])Ordered By: Superintendent House on 05-31-20222018 Novel Coronavirus (COVID-19), BRISEIDA ([id number]) Not detected Normal [facility] Work Phone: Comment on above: This nucleic acid am plification test was developed and its performancecharacteristics determined by [employer]. Nucleic acidamplification tests include RT-PCR and TMA. [...] this assay. PATIENT NOT FASTINGP ERFORMED BY: [facility] [id number] INHOUSE COVID 19 (ONLY) RAPI D ([id number])Ordered By: Yvette Hernandez on 05-31-2022 SARS-CoV-2 (COVID-19) RNA BRISEIDA+probe Ql (Unsp spec) Negative Normal [facility]; [facility] Work Phone: Absolute lymphocyte counton 05-27-2022 Lymphocytes Auto (Unsp spec) [#/Vol] 2.52 10*3/uL 0.83-4.51 [facility] Work Phone: Basophil percentageon 2021 Basophils/100 WBC (Bld) 0.6 % 0-1 [facility] Work Phone: Chloride [Moles/Vol] 109 mmol/L 98-107 [facility] Work Phone: Eosinophils/100 WBC (Bld) 1.1 % 0-5 [facility] Work Phone: Glucose [Mass/Vol] 92 mg/dL 74-106 [facility] Work Phone: Neutrophils (Bld) [#/Vol] 4.9 10*3/uL 2.0-7.7 [facility] Work Phone: Neutrophils/100 WBC (Bld) 58.4 % 47-70 [facility] Work Phone: Potassium [Moles/Vol] 3.5 mmol/L 3.5-5.1 [facility] Work Phone: Sodium [Moles/Vol] 140 mmol/L 136-145 [facility] Work Phone: WBC (Bld) [#/Vol] 8.3 10*3/uL 4.4-11.0 [facility] Work Phone: Blood erythrocytes count (nu mber/volume)on 05-27-2022 RBC (Bld) [#/Vol] 5.14 10*6/uL 4.6-6.2 [facility] Work Phone: Blood hemoglobin measurement (mass/volume)on 05-27-2022 Hemoglobin (Bld) [Mass/Vol] 14.2 g/dL 13.0-16.5 [facility] Work Phone: Blood lymphocytes/100 leukoc yteson 05-27-2022 Lymphocytes/100 WBC (Bld) 30.3 % 19-41 [facility] Work Phone: Blood monocytes/100 leukocyt eson 05-27-2022 Monocytes/100 WBC (Bld) 9.4 % 0-10 [facility] Work Phone: Blood platelet mean volumeon 05-27-2022 Platelet mean volume (Bld) [Entitic vol] 10.6 fL 6.2-12.0 [facility] Work Phone: Determination of erythrocyte mean corpuscular volume (MCV)on 05-27-2022 MCV (RBC) [Entitic vol] 86.0 fL 80-94 [facility] Work Phone: Hematocrit Auto (Bld) [Volum e fraction]on 05-27-2022 Hematocrit (Bld) [Volume fraction] 44.2 % 40-54 [facility] Work Phone: Laboratory - Chemistry and C hemistry - challengeon 05-27-2022 CO2 [Moles/Vol] 23.0 mmol/L 21.0-32.0 [facility] Work Phone: Urea nitrogen/Creatinine [Mass ratio] 12.0 mg/mg 10-20 [facility] Work Phone: Laboratory - Hematology and Cell countson 05-27-2022 Erythrocyte distribution width (RBC) [Entitic vol] 39.9 fL 35.1-43.9 [facility] Work Phone: Erythrocyte distribution width (RBC) [Ratio] 12.9 % 11.6-14.6 [facility] Work Phone: Immature granulocytes/100 WBC (Bld) 0.200 % 0.0-0.9 [facility] Work Phone: Comment on above: IG% - Immature Granu locytes (promyelocytes, myelocytes and metamyelocytes) > 1% indicates that a LEFT SHIFT is Present. MCH (RBC) [Entitic mass] 27.6 pg 27.0-32.0 [facility] Work Phone: Nucleated RBC/100 WBC (Bld) [Ratio] 0 % 0-5 [facility] Work Phone: MCHC Auto (RBC) [Mass/Vol]on 05-27-2022 MCHC (RBC) [Mass/Vol] 32.1 g/dL 32-36 [facility] Work Phone: No Panel Informationon 05-27 Estimated Creatinine Clearance Calc 71.25 ml/min [facility] Work Phone: Estimated GFR (MDRD) Amer 90 mL/min >60 [facility] Work Phone: Comment on above: GFR Calc Estimated GFR (MDRD) Non-Af Amer 74 mL/min >60 [facility] Work Phone: Comment on above: Non- GFR Calc Troponin I High Sensitivity 7 pg/mL 3.0-78.0 [facility] Work Phone: Comment on above: Please Note: New Leigh t Units and Gender Specific Reference Ranges. For more information see Policy Stat Procedure [place] High Sensitivity Troponin (TNIH) and attachments. Platelets bldon 05-27-2022 Platelets (Bld) [#/Vol] 284 10*3/uL 150-450 [facility] Work Phone: Serum or plasma calcium valerie urement (mass/volume)on 05-27-2022 Calcium [Mass/Vol] 8.6 mg/dL 8.5-10.1 [facility] Work Phone: Serum or plasma creatinine m easurement (mass/volume)on 05-27-2022 Creatinine [Mass/Vol] 1.08 mg/dL 0.70-1.30 [facility] Work Phone: Comment on above: The validity of the calculated GFR & GFRAA in patients over 70 years has not been determined. Clinical correlation is essential. Serum or plasma urea nitroge n measurement (mass/volume)on 05-27-2022 Urea nitrogen [Mass/Vol] 13 mg/dL 7-18 [facility] Work Phone: Thin prep Papanicolaou smear with manual screeningon 05-27-2022 Thin prep Papanicolaou smear with manual screening 8 5-15 [facility] Work Phone: Absolute lymphocyte counton 05-05-2022 Lymphocytes Auto (Unsp spec) [#/Vol] 2.02 10*3/uL 0.83-4.51 [facility] Work Phone: Basophil percentageon 2021 Basophils/100 WBC (Bld) 0.9 % 0-1 [facility] Work Phone: Bilirubin [Mass/Vol] 0.30 mg/dL 0.20-1.00 [facility] Work Phone: Comment on above: For patients on eltr ombopag therapy, use of Dimension [place] TBIL is not recommended. Chloride [Moles/Vol] 110 mmol/L 98-107 [facility] Work Phone: Eosinophils/100 WBC (Bld) 1.8 % 0-5 [facility] Work Phone: Glucose [Mass/Vol] 116 mg/dL 74-106 [facility] Work Phone: Comment on above: Fasting Glucose resu lt from 100 to 125 mg/dL suggests IMPAIRED HOMEOSTASIS per A.D.A. criteria. Neutrophils (Bld) [#/Vol] 5.3 10*3/uL 2.0-7.7 [facility] Work Phone: Neutrophils/100 WBC (Bld) 64.5 % 47-70 [facility] Work Phone: Potassium [Moles/Vol] 3.9 mmol/L 3.5-5.1 [facility] Work Phone: Protein [Mass/Vol] 7.6 g/dL 6.4-8.2 [facility] Work Phone: Sodium [Moles/Vol] 141 mmol/L 136-145 [facility] Work Phone: WBC (Bld) [#/Vol] 8.2 10*3/uL 4.4-11.0 [facility] Work Phone: Blood erythrocytes count (nu mber/volume)on 05-05-2022 RBC (Bld) [#/Vol] 5.23 10*6/uL 4.6-6.2 [facility] Work Phone: Blood hemoglobin measurement (mass/volume)on 05-05-2022 Hemoglobin (Bld) [Mass/Vol] 14.9 g/dL 13.0-16.5 [facility] Work Phone: Blood lymphocytes/100 leukoc yteson 05-05-2022 Lymphocytes/100 WBC (Bld) 24.7 % 19-41 [facility] Work Phone: Blood monocytes/100 leukocyt eson 05-05-2022 Monocytes/100 WBC (Bld) 7.7 % 0-10 [facility] Work Phone: Blood platelet mean volumeon 05-05-2022 Platelet mean volume (Bld) [Entitic vol] 10.4 fL 6.2-12.0 [facility] Work Phone: Determination of erythrocyte mean corpuscular volume (MCV)on 05-05-2022 MCV (RBC) [Entitic vol] 87.0 fL 80-94 [facility] Work Phone: Direct bilirubinon Bilirubin.direct [Mass/Vol] 0.08 mg/dL 0.00-0.30 [facility] Work Phone: Hematocrit Auto (Bld) [Volum e fraction]on 05-05-2022 Hematocrit (Bld) [Volume fraction] 45.5 % 40-54 [facility] Work Phone: Laboratory - Chemistry and C hemistry - challengeon 05-05-2022 ALP [Catalytic activity/Vol] 61 U/L 45-117 [facility] Work Phone: ALT [Catalytic activity/Vol] 25 U/L 16-61 [facility] Work Phone: CO2 [Moles/Vol] 27.0 mmol/L 21.0-32.0 [facility] Work Phone: Globulin (S) [Mass/Vol] 4.2 g/dL 2.2-4.2 [facility] Work Phone: Lipase [Catalytic activity/Vol] 159 U/L 73-393 [facility] Work Phone: Urea nitrogen/Creatinine [Mass ratio] 14.5 mg/mg 10-20 [facility] Work Phone: Laboratory - Hematology and Cell countson 05-05-2022 Erythrocyte distribution width (RBC) [Entitic vol] 41.3 fL 35.1-43.9 [facility] Work Phone: Erythrocyte distribution width (RBC) [Ratio] 13.1 % 11.6-14.6 [facility] Work Phone: Immature granulocytes/100 WBC (Bld) 0.400 % 0.0-0.9 [facility] Work Phone: Comment on above: IG% - Immature Granu locytes (promyelocytes, myelocytes and metamyelocytes) > 1% indicates that a LEFT SHIFT is Present. MCH (RBC) [Entitic mass] 28.5 pg 27.0-32.0 [facility] Work Phone: Nucleated RBC/100 WBC (Bld) [Ratio] 0 % 0-5 [facility] Work Phone: MCHC Auto (RBC) [Mass/Vol]on 05-05-2022 MCHC (RBC) [Mass/Vol] 32.7 g/dL 32-36 [facility] Work Phone: No Panel Informationon 05-05 Estimated Creatinine Clearance Calc 62.06 ml/min [facility] Work Phone: Estimated GFR (MDRD) Amer 77 mL/min >60 [facility] Work Phone: Comment on above: GFR Calc Estimated GFR (MDRD) Non-Af Amer 63 mL/min >60 [facility] Work Phone: Comment on above: Non- GFR Calc Platelets bldon 05-05-2022 Platelets (Bld) [#/Vol] 289 10*3/uL 150-450 [facility] Work Phone: Serum or plasma albumin valerie urement (mass/volume)on 05-05-2022 Albumin [Mass/Vol] 3.4 g/dL 3.2-5.0 [facility] Work Phone: Serum or plasma calcium valerie urement (mass/volume)on 05-05-2022 Calcium [Mass/Vol] 8.8 mg/dL 8.5-10.1 [facility] Work Phone: Serum or plasma creatinine m easurement (mass/volume)on 05-05-2022 Creatinine [Mass/Vol] 1.24 mg/dL 0.70-1.30 [facility] Work Phone: Comment on above: The validity of the calculated GFR & GFRAA in patients over 70 years has not been determined. Clinical correlation is essential. Serum or plasma urea nitroge n measurement (mass/volume)on 05-05-2022 Urea nitrogen [Mass/Vol] 18 mg/dL 7-18 [facility] Work Phone: Thin prep Papanicolaou smear with manual screeningon 05-05-2022 Thin prep Papanicolaou smear with manual screening 17 U/L 15-37 [facility] Work Phone: Thin prep Papanicolaou smear with manual screening 4 5-15 [facility] Work Phone: CBC W Auto Differential pane l (Bld)on 03-08-2022 Abs Immature Gran 0.03 k/uL <0.10 k/uL [facility] Basophils (Bld) [#/Vol] 0.04 10*3/uL <0.11 k/uL [facility] Basophils/100 WBC (Bld) 0.5 % [facility] Differential cell count method Nom (Bld) Auto [facility] Eosinophils (Bld) [#/Vol] 0.08 10*3/uL <0.46 k/uL [facility] Eosinophils/100 WBC (Bld) 0.9 % [facility] Erythrocyte distribution width (RBC) [Ratio] 13.0 % 11.5 - 15.0 % [facility] Hematocrit (Bld) [Volume fraction] 46.6 % 39.0 - 51.0 % [facility] Hemoglobin (Bld) [Mass/Vol] 15.0 g/dL 13.0 - 17.0 g/dL [facility] Immature Gran % 0.3 % [facility] Lymphocytes (Bld) [#/Vol] 2.32 10*3/uL 1.00 - 4.00 k/uL [facility] Lymphocytes/100 WBC (Bld) 26.5 % [facility] MCH (RBC) [Entitic mass] 27.7 pg 26.0 - 34.0 pg [facility] MCHC (RBC) [Mass/Vol] 32.2 g/dL 30.5 - 36.0 g/dL [facility] MCV (RBC) [Entitic vol] 86.0 fL 80.0 - 100.0 fL [facility] Monocytes (Bld) [#/Vol] 0.68 10*3/uL <0.87 k/uL [facility] Monocytes/100 WBC (Bld) 7.8 % [facility] Neutrophils (Bld) [#/Vol] 5.62 10*3/uL 1.45 - 7.50 k/uL [facility] Neutrophils/100 WBC (Bld) 64.0 % [facility] Nucleated RBC (Bld) [#/Vol] 10*3/uL <0.01 k/uL [facility] Nucleated RBC/100 WBC (Bld) [Ratio] 0.0 /100 WBC [facility] Platelet mean volume (Bld) [Entitic vol] 10.6 fL 9.0 - 12.7 fL [facility] Platelets (Bld) [#/Vol] 300 10*3/uL 150 - 400 k/uL [facility] RBC (Bld) [#/Vol] 5.42 10*6/uL 4.20 - 6.00 m/uL [facility] WBC (Bld) [#/Vol] 8.77 10*3/uL 3.70 - 11.00 k/uL [facility] Comprehensive metabolic 2000 panelon 03-08-2022 Albumin [Mass/Vol] 4.1 g/dL 3.9 - 4.9 g/dL [facility] ALP [Catalytic activity/Vol] 70 U/L 38 - 113 U/L [facility] ALT [Catalytic activity/Vol] 18 U/L 10 - 54 U/L [facility] Anion gap [Moles/Vol] 11 mmol/L 9 - 18 mmol/L [facility] AST [Catalytic activity/Vol] 19 U/L 14 - 40 U/L [facility] Bilirubin [Mass/Vol] 0.5 mg/dL 0.2 - 1 .3 mg/dL [facility] Calcium [Mass/Vol] 9.1 mg/dL 8.5 - 10. 2 mg/dL [facility] Chloride [Moles/Vol] 104 mmol/L 97 - 10 5 mmol/L [facility] CO2 [Moles/Vol] 24 mmol/L 22 - 30 mmol/L [facility] Creatinine [Mass/Vol] 1.13 mg/dL 0.73 - 1.22 mg/dL [facility] Estimated Glomerular Filtration Rate 75 mL/min/1.73m >=60 mL/min/1.7 3m [facility] Glucose [Mass/Vol] 97 mg/dL 74 - 99 mg/dL [facility] Potassium [Moles/Vol] 3.5 mmol/L Low 3.7 - 5.1 mmol/L [facility] Protein [Mass/Vol] 7.3 g/dL 6.3 - 8.0 g/dL [facility] Sodium [Moles/Vol] 139 mmol/L 136 - 144 mmol/L [facility] Urea nitrogen [Mass/Vol] 9 mg/dL 9 - 24 mg/dL [facility] LIPID PANEL BASICon 03-08-20 22 Cholesterol [Mass/Vol] 182 mg/dL <200 mg/dL [facility] Cholesterol in HDL [Mass/Vol] 41 mg/dL >39 mg/dL [facility] Cholesterol in LDL [Mass/Vol] 122 mg/dL High <100 mg/dL [facility] Cholesterol in LDL/Cholesterol in HDL [Mass ratio] 2.98 {ratio} High <2.54 [facility] Cholesterol in VLDL [Mass/Vol] 19 mg/dL <30 mg/dL [facility] Cholesterol non HDL [Mass/Vol] 141 mg/dL High <130 mg/dL [facility] Cholesterol.total/Cho lesterol in HDL [Mass ratio] 4.44 {ratio} <5.10 [facility] Fasting Time 0 hrs [facility] Triglyceride [Mass/Vol] 94 mg/dL <150 mg/dL [facility] C-Reactive Protein ([id number])Or dered By: Superintendent House on 01-01-2021 CRP [Mass/Vol] 4 mg/L Normal 0-10 [facility] Work Phone: Comment on above: PATIENT NOT FASTINGP ERFORMED BY: [id number] [facility] [id number] D-Dimer ([id number])Ordered By: Arabella hayestem Motion Picture Commentator on 01-01-2021 Fibrin D-dimer FEU (PPP) [Mass/Vol] 0.39 {mg/L_FEU} Normal 0.00-0.49 [facility] Work Phone: Comment on above: According to the ass ay lockmaker's published package insert, anormal (<0.50 mg/L FEU) D-dimer result in conjunction with a non-highclinical probability assessment, excludes deep vein thrombosis (DVT)and pulmonary embolism (PE) with high sensitivity. .D-dimer values increase with age and this can make VTE exclusion ofan older population difficult. To address this, the [employer], based on best available evidence [...] mg/L FEU. PATIENT NOT FASTINGP ERFORMED BY: [id number] MOF TechnologiesNov[facility] [id number] CBC, PLATELETS & AUT DIFF ([id number])Ordered By: Superintendent House on 06-09-2020 Basophils (Bld) [#/Vol] 0.1 {x10E3/uL} Normal 0.0-0.2 [facility] Work Phone: Comment on above: PATIENT NOT FASTINGP ERFORMED BY: [id number] M[facility]Nov[facility] [id number] Basophils (Bld) [#/Vol] 0.1 10*3/uL Normal 0.0-0.2 [facility] Work Phone: Comment on above: PATIENT NOT FASTINGP ERFORMED BY: CB [facility] [id number] [place] [id number] Basophils/100 WBC (Bld) 1 % Normal [facility] Work Phone: Comment on above: PATIENT NOT FASTINGP ERFORMED BY: CB [facility] [id number] [address] [place] [id number] Eosinophils (Bld) [#/Vol] 0.1 {x10E3/uL} Normal 0.0-0.4 [facility] Work Phone: Comment on above: PATIENT NOT FASTINGP ERFORMED BY: CB [facility] [id number]Dublin [place] [id number] Eosinophils (Bld) [#/Vol] 0.1 10*3/uL Normal 0.0-0.4 [facility] Work Phone: Comment on above: PATIENT NOT FASTINGP ERFORMED BY: CB [facility] [id number] [place] [id number] Eosinophils/100 WBC (Bld) 1 % Normal [facility] Work Phone: Comment on above: PATIENT NOT FASTINGP ERFORMED BY: CB [facility] [id number] [place] [id number] Erythrocyte distribution width (RBC) [Ratio] 12.1 % Normal 11.6-15.4 [facility] Work Phone: Comment on above: PATIENT NOT FASTINGP ERFORMED BY: CB [facility] [id number] [address]Dublin [place] [id number] Hematocrit (Bld) [Volume fraction] 46.0 % Normal 37.5-51.0 [facility] Work Phone: Comment on above: PATIENT NOT FASTINGP ERFORMED BY: CB [facility] [id number] [address] [place] [id number] Hemoglobin (Bld) [Mass/Vol] 15.2 g/dL Normal 13.0-17.7 [facility] Work Phone: Comment on above: PATIENT NOT FASTINGP ERFORMED BY: CB [facility] [id number] [address] [place] [id number] Immature granulocytes (Bld) [#/Vol] 0.0 {x10E3/uL} Normal 0.0-0.1 [facility] Work Phone: Comment on above: PATIENT NOT FASTINGP ERFORMED BY: CB [facility] [id number] [place] [id number] Immature granulocytes (Bld) [#/Vol] 0.0 10*3/uL Normal 0.0-0.1 [facility] Work Phone: Comment on above: PATIENT NOT FASTINGP ERFORMED BY: CB [facility] [id number] [address] [place] [id number] Immature granulocytes/100 WBC (Bld) 0 % Normal [facility] Work Phone: Comment on above: PATIENT NOT FASTINGP ERFORMED BY: CB [facility] [id number] [address] [place] [id number] Lymphocytes (Bld) [#/Vol] 2.2 {x10E3/uL} Normal 0.7-3.1 [facility] Work Phone: Comment on above: PATIENT NOT FASTINGP ERFORMED BY: CB [facility] [id number] [address] [place] [id number] Lymphocytes (Bld) [#/Vol] 2.2 10*3/uL Normal 0.7-3.1 [facility] Work Phone: Comment on above: PATIENT NOT FASTINGP ERFORMED BY: CB [facility] [id number] [address] [place] [id number] Lymphocytes/100 WBC (Bld) 28 % Normal [facility] Work Phone: Comment on above: PATIENT NOT FASTINGP ERFORMED BY: CB [facility] [id number] [place] [id number] MCH (RBC) [Entitic mass] 28.6 pg Normal 26.6-33.0 [facility] Work Phone: Comment on above: PATIENT NOT FASTINGP ERFORMED BY: CB [facility] [id number] [address] [place] [id number] MCHC (RBC) [Mass/Vol] 33.0 g/dL Normal 31.5-35.7 [facility] prehensive Internal Medicine Work Phone: Comment on above: PATIENT NOT FASTINGP ERFORMED BY: CB [facility] [id number] [address] [place] [id number] MCV (RBC) [Entitic vol] 87 fL Normal 79-97 [facility] Work Phone: Comment on above: PATIENT NOT FASTINGP ERFORMED BY: CB [facility] Ylwywi1667 [address]Dublin [place] [id number] Monocytes (Bld) [#/Vol] 0.6 {x10E3/uL} Normal 0.1-0.9 [facility] Work Phone: Comment on above: PATIENT NOT FASTINGP ERFORMED BY: CB [facility] Wctfli9688 [address] [place] [id number] Monocytes (Bld) [#/Vol] 0.6 10*3/uL Normal 0.1-0.9 [facility]; [facility] Work Phone: Comment on above: PATIENT NOT FASTINGP ERFORMED BY: CB [facility] [id number] [address] [place] [id number] Monocytes/100 WBC (Bld) 8 % Normal [facility] Work Phone: Comment on above: PATIENT NOT FASTINGP ERFORMED BY: CB [facility] Mfqmdw2714 [address] [place] [id number] Neutrophils (Bld) [#/Vol] 5.1 {x10E3/uL} Normal 1.4-7.0 [facility] Work Phone: Comment on above: PATIENT NOT FASTINGP ERFORMED BY: CB [facility] Nrohet3557 [address] [place] [id number] Neutrophils (Bld) [#/Vol] 5.1 10*3/uL Normal 1.4-7.0 [facility]; [facility] Work Phone: Comment on above: PATIENT NOT FASTINGP ERFORMED BY: CB [facility] Isklzk8889 [address] [place] [id number] Neutrophils/100 WBC (Bld) 62 % Normal [facility] Work Phone: Comment on above: PATIENT NOT FASTINGP ERFORMED BY: CB [facility] Uhjygo0765 [address] [place] [id number] Platelets (Bld) [#/Vol] 273 {x10E3/uL} Normal 150-450 [facility] Work Phone: Comment on above: PATIENT NOT FASTINGP ERFORMED BY: CB [facility] Coioxh1769 [address] [place] [id number] Platelets (Bld) [#/Vol] 273 10*3/uL Normal 150-450 [facility]; [facility] Work Phone: Comment on above: PATIENT NOT FASTINGP ERFORMED BY: CB [facility] Lgaqer7441 [address] [place] [id number] RBC (Bld) [#/Vol] 5.32 {x10E6/uL} Normal 4.14-5.80 [facility] Internal Medicine Work Phone: Comment on above: PATIENT NOT FASTINGP ERFORMED BY: CB [facility] Yjfkup2140 [address] [place] [id number] RBC (Bld) [#/Vol] 5.32 10*6/uL Normal 4.14-5.80 [facility] Internal Medicine; [facility] Work Phone: Comment on above: PATIENT NOT FASTINGP ERFORMED BY: CB [facility] Jbjegz2287 [address] [place] [id number] WBC (Bld) [#/Vol] 8.1 {x10E3/uL} Normal 3.4-10.8 [facility] Internal Medicine Work Phone: Comment on above: PATIENT NOT FASTINGP ERFORMED BY: CB [facility] Vxcvna6294 [address] [place] [id number] WBC (Bld) [#/Vol] 8.1 10*3/uL Normal 3.4-10.8 [facility] Internal Medicine; [facility] Internal Medicine Work Phone: Comment on above: PATIENT NOT FASTINGP ERFORMED BY: KIMI LabCoesperanza MillerKfaply5416 [address]Dublin [place] [id number] METABOLIC PANEL, COMPREHENSI VE ([id number])Ordered By: Superintendent House on 06-09-2020 Albumin [Mass/Vol] 4.1 g/dL Normal 3.8-4.9 [facility] Internal Medicine Work Phone: Comment on above: PATIENT NOT FASTINGP ERFORMED BY: CB [facility] Kostnq5996 [address] [place] [id number] Albumin/Globulin [Mass ratio] 1.5 {ratio} Normal 1.2-2.2 [facility] Work Phone: Comment on above: PATIENT NOT FASTINGP ERFORMED BY: CB [facility] Jgtich7629 [address] [place] [id number] ALP [Catalytic activity/Vol] 61 [iU]/L Normal 39-117 [facility] Work Phone: Comment on above: PATIENT NOT FASTINGP ERFORMED BY: CB [facility] Ajwiui4120 [address] [place] [id number] ALP [Catalytic activity/Vol] 61 U/L Normal 39-117 [facility]; [facility] Work Phone: Comment on above: PATIENT NOT FASTINGP ERFORMED BY: CB [facility] Mbutbr0813 [address] [place] [id number] ALT [Catalytic activity/Vol] 16 [iU]/L Normal 0-44 [facility] Work Phone: Comment on above: PATIENT NOT FASTINGP ERFORMED BY: CB [facility] Bqbkly0242 [address] [place] [id number] ALT [Catalytic activity/Vol] 16 U/L Normal 0-44 [facility]; [facility] Work Phone: Comment on above: PATIENT NOT FASTINGP ERFORMED BY: CB [facility] Scezqa7781 [address] [place] [id number] AST [Catalytic activity/Vol] 18 [iU]/L Normal 0-40 [facility] Work Phone: Comment on above: PATIENT NOT FASTINGP ERFORMED BY: CB [facility] Tellbi0480 [address] [place] [id number] AST [Catalytic activity/Vol] 18 U/L Normal 0-40 [facility]; [facility] Internal Medicine Work Phone: Comment on above: PATIENT NOT FASTINGP ERFORMED BY: CB [facility] Vnvfjd5851 [address] [place] [id number] Bilirubin [Mass/Vol] 0.3 mg/dL Normal 0.0-1.2 [facility] Work Phone: Comment on above: PATIENT NOT FASTINGP ERFORMED BY: CB [facility] Oczdhy5988 [address] [place] [id number] Calcium [Mass/Vol] 9.1 mg/dL Normal 8.7-10.2 [facility] Internal Medicine Work Phone: Comment on above: PATIENT NOT FASTINGP ERFORMED BY: CB [facility] Rpxxss8417 [address] [place] [id number] Chloride [Moles/Vol] 106 mmol/L Normal 96-106 [facility] Work Phone: Comment on above: PATIENT NOT FASTINGP ERFORMED BY: CB [facility] Feidya4282 [address] [place] [id number] CO2 [Moles/Vol] 22 mmol/L Normal 20-29 [facility] [[email or web address] Internal Medicine Work Phone: Comment on above: PATIENT NOT FASTINGP ERFORMED BY: CB [facility] Wtemwd4418 [address] [place] [id number] Creatinine [Mass/Vol] 1.13 mg/dL Normal 0.76-1.27 [facility] Internal Medicine Work Phone: Comment on above: PATIENT NOT FASTINGP ERFORMED BY: CB [facility] Ellivl9281 [address] [place] [id number] GFR/1.73 sq M predicted among blacks CKD-EPI (S/P/Bld) [Vol rate/Area] 83 mL/min/1.73 Normal [facility] Work Phone: Comment on above: PATIENT NOT FASTINGP ERFORMED BY: CB [facility] Hmciym1749 [address]Dublin [place] [id number] GFR/1.73 sq M predicted among non-blacks CKD-EPI (S/P/Bld) [Vol rate/Area] 72 mL/min/1.73 Normal [facility] Work Phone: Comment on above: PATIENT NOT FASTINGP ERFORMED BY: CB [facility] Frrtoz9738 [address]Dublin [place] [id number] Globulin (S) [Mass/Vol] 2.8 g/dL Normal 1.5-4.5 [facility] Internal Medicine Work Phone: Comment on above: PATIENT NOT FASTINGP ERFORMED BY: CB [facility] Psjbfk7595 [address] RoadColumbus Regional Healthcare Systemin [place] [id number] Glucose [Mass/Vol] 94 mg/dL Normal 65-99 [facility] Internal Medicine Work Phone: Comment on above: PATIENT NOT FASTINGP ERFORMED BY: CB [facility] Tpxbmi8444 [address]blin [place] [id number] Potassium [Moles/Vol] 4.5 mmol/L Normal 3.5-5.2 [facility] Internal Medicine Work Phone: Comment on above: PATIENT NOT FASTINGP ERFORMED BY: CB [facility] Nndzno3288 [address]blin [place] [id number] Protein [Mass/Vol] 6.9 g/dL Normal 6.0-8.5 [facility] Internal Medicine Work Phone: Comment on above: PATIENT NOT FASTINGP ERFORMED BY: CB [facility] Iykxwt1088 [address]Dublin [place] [id number] Sodium [Moles/Vol] 141 mmol/L Normal 134-144 [facility] Internal Medicine Work Phone: Comment on above: PATIENT NOT FASTINGP ERFORMED BY: CB [facility] Xdkpzo3227 [facility] [id number] Urea nitrogen [Mass/Vol] 13 mg/dL Normal 6-24 [facility] Work Phone: Comment on above: PATIENT NOT FASTINGP ERFORMED BY: KIMI Jackson Dwhdie3309 [facility] [id number] Urea nitrogen/Creatinine [Mass ratio] 12 mg/mg Normal 9-20 [facility] Work Phone: Comment on above: PATIENT NOT FASTINGP ERFORMED BY: KIMI TaylorRanken [facility] Cjhmix3332 [facility] [id number] MICROALBUMINOrdered By: Syst em Motion Picture Commentator on 06-09-2020 Albumin DL <= 20 mg/L (U) [Mass/Vol] 4.7 ug/mL Normal [facility] Work Phone: Comment on above: PATIENT NOT FASTINGP ERFORMED BY: ClaudiaRanken [facility] Rhxixo4731 [facility] [id number] Information: SRC:UC Albumin/Creatinine (U) [Mass ratio] 3 {mg/g_creat} Normal 0-29 [facility] Work Phone: Comment on above: Normal: 0 - 29 Moder ately increased: 30 - 300 Severely increased: >300 Please note reference interval change PATIENT NOT FASTINGP ERFORMED BY: KIMI Jackson Gobose5801 [facility] [id number] Information: SRC:UC Creatinine (U) [Mass/Vol] 156.0 mg/dL Normal [facility] Work Phone: Comment on above: PATIENT NOT FASTINGP ERFORMED BY: LabRanken [facility] [id number] [facility] [id number] Information: SRC:UC PSA (PROSTATE SPECIFIC ANTIG EN) (V76.44)Ordered By: Superintendent House on 06-09-2020 Prostate specific Ag [Mass/Vol] 0.9 ng/mL Normal 0.0-4.0 [facility] Work Phone: Comment on above: Tio ECLIA methodol ogy. .According to the [place] [employer], Serum PSA shoulddecrease and remain [...] malignant disease. PATIENT NOT FASTINGP ERFORMED BY: [employer] [place] [id number] TSH (THYROID STIMULATING HOR RITESH) ([id number])Ordered By: Superintendent House on 06-09-2020 TSH Qn 2.040 {uIU/mL} Normal 0.450-4.50 0 [facility] Work Phone: Comment on above: PATIENT NOT FASTINGP ERFORMED BY: [employer] [place] [id number] URINE ARTURO CULTURE-IDENTIFICA [place] ([id number])Ordered By: Superintendent House on 06-09-2020 Bacteria identified Cx Nom (U) NG36 Normal [facility] Work Phone: Comment on above: No growth in 36 - 48 hours. PATIENT NOT FASTINGP ERFORMED BY: [employer] [place] [id number] Bacteria identified Cx Nom (U) Final report Normal [facility] Work Phone: Comment on above: PATIENT NOT FASTINGP ERFORMED BY: [employer]6370 [employer] TechnologiesClip[employer] [place] [id number] Urinalysis, Office ([id number])Or dered By: Keerthi Naranjo on 06-09-2020 Bilirubin [...] Medicine Work Phone: ALLERGEN SKIN TEST-INHALANT 20 [facility] Vital Signs Date Time Vital Sign Value Performing Clinician Facility 06-22-2025 00:02-0400 Body temperature 98.1 [degF] Shreya Cat NP-C Work Phone: [facility] 06-22-2025 00:02-0400 Diastolic blood pressure 84 mm[Hg] Shreya Cat NP-C Work Phone: [facility] 06-22-2025 00:02-0400 Heart rate 71 /min Shreya JOEC Work Phone: [facility] 06-22-2025 00:02-0400 Respiratory rate 16 /min Shreya Aparicioam [employer] PAINTER AND GRADER-C Work Phone: [facility] 06-22-2025 00:02-0400 SaO2% (BldA) [Mass fraction] 98 % Shreya Cat [employer] PAINTER AND GRADER-C Work Phone: [facility] 06-22-2025 00:02-0400 Systolic blood pressure 119 mm[Hg] Shreya Emory [employer] PAINTER AND GRADER-C Work Phone: [facility] 06-21-2025 18:08-0400 Body mass index (BMI) [Ratio] 25.7 kg/m2 Shreya Cat [employer] PAINTER AND GRADER-C Work Phone: [facility] 06-21-2025 18:08-0400 Body weight 76.8 kg Shreya Emory [employer]INTER [employer] GRADER-C Work Phone: [facility] 06-21-2025 18:05-0400 Body height 172.72 cm Shreya Emory [employer] PAINTER AND GRADER-C Work Phone: [facility] 04-30-2025 13:43-0400 Diastolic blood pressure 92 mm[Hg] Awilda Garcia MD Work Phone: [facility] 04-30-2025 13:43-0400 Systolic blood pressure 136 mm[Hg] Awilda Garcia MD Work Phone: [facility] 04-30-2025 13:25-0400 Body height 172.7 cm Awilda Garcia MD Work Phone: [facility] 04-30-2025 13:25-0400 Body mass index (BMI) [Ratio] 27.39 kg/m2 Awilda Garcia MD Work Phone: [facility] 04-30-2025 13:25-0400 Body temperature 97.3 [degF] Awilda Garcia MD Work Phone: [facility] 04-30-2025 13:25-0400 Body weight 81.7 kg Awilda Garcia MD Work Phone: [facility] 04-30-2025 13:25-0400 Heart rate 77 /min Awilda Garcia MD Work Phone: [facility] 04-30-2025 13:25-0400 SaO2% (BldA) [Mass fraction] 99 % Awilda Garica MD Work Phone: [facility] 04-14-2025 23:51-0400 Body temperature 98.6 [degF] Shreya Emory [employer] PAINTER [employer] GRADER-C Work Phone: [facility] 04-14-2025 23:51-0400 Diastolic blood pressure 74 mm[Hg] Shreya Emory [employer] PAINTER AND GRADER-C Work Phone: [facility] 04-14-2025 23:51-0400 Heart rate 59 /min Shreya Emory [employer] PAINTER AND GRADER-C Work Phone: [facility] 04-14-2025 23:51-0400 Respiratory rate 17 /min Shreya Emory [employer] PAINTER [employer] GRADER-C Work Phone: [facility] 04-14-2025 23:51-0400 SaO2% (BldA) [Mass fraction] 98 % Shreya Emory [employer]INTER [employer] GRADER-C Work Phone: [facility] 04-14-2025 23:51-0400 Systolic blood pressure 108 mm[Hg] Shreya Emory [employer] PAINTER AND GRADER-C Work Phone: [facility] 04-14-2025 19:57-0400 Body height 172.72 cm Shreya Emory [employer] PAINTER AND GRADER-C Work Phone: [facility] 04-14-2025 19:57-0400 Body mass index (BMI) [Ratio] 28.3 kg/m2 Shreya Emory [employer]INTER [employer] GRADER-C Work Phone: [facility] 04-14-2025 19:57-0400 Body weight 84.36 kg Shreya Emory [employer] PAINTER [employer] GRADER-C Work Phone: [facility] 03-26-2025 14:21-0400 Body temperature 98 [degF] Shreya Emory [employer] PAINTER AND GRADER-C Work Phone: [facility] 03-26-2025 14:21-0400 Diastolic blood pressure 84 mm[Hg] Shreya Aparicioam [employer] PAINTER AND GRADER-C Work Phone: [facility] 03-26-2025 14:21-0400 Heart rate 67 /min Shreya Aparicioam [employer] PAINTER AND GRADER-C Work Phone: [facility] 03-26-2025 14:21-0400 Respiratory rate 14 /min Shreya Aparicioam [employer] PAINTER AND GRADER-C Work Phone: [facility] 03-26-2025 14:21-0400 SaO2% (BldA) [Mass fraction] 99 % Shreya Aparicioam [employer] PAINTER AND GRADER-C Work Phone: [facility] 03-26-2025 14:21-0400 Systolic blood pressure 128 mm[Hg] Shreya Emory [employer] PAINTER AND GRADER-C Work Phone: [facility] 03-26-2025 09:01-0400 Body height 172.72 cm Shreya Aparicioam [employer] PAINTER AND GRADER-C Work Phone: [facility] 03-26-2025 09:01-0400 Body mass index (BMI) [Ratio] 27.7 kg/m2 Shreya Aparicioam [employer]INTER [employer] GRADER-C Work Phone: [facility] 03-26-2025 09:01-0400 Body weight 82.7 kg Shreya Aparicioam [employer] PAINTER [employer] GRADER-C Work Phone: [facility] 12-03-2024 14:59-0500 Body height 172.7 cm George Noriega MD Work Phone: [facility] 12-03-2024 14:59-0500 Body mass index (BMI) [Ratio] 27.25 kg/m2 George Noriega MD Work Phone: [facility] 12-03-2024 14:59-0500 Body weight 81.3 kg George Noriega MD Work Phone: [facility] 12-03-2024 14:59-0500 Diastolic blood pressure 96 mm[Hg] George Noriega MD Work Phone: [facility] 12-03-2024 14:59-0500 Heart rate 87 /min George Noriega MD Work Phone: [facility] 12-03-2024 14:59-0500 SaO2% (BldA) [Mass fraction] 98 % George Noriega MD Work Phone: [facility] 12-03-2024 14:59-0500 Systolic blood pressure 128 mm[Hg] George Noriega MD Work Phone: [facility] 08-20-2024 13:27-0500 Diastolic blood pressure 94 mm[Hg] Awilda Garcia MD Work Phone: [facility] 08-20-2024 13:27-0500 Systolic blood pressure 132 mm[Hg] Awilad Garcia MD Work Phone: [facility] 08-20-2024 12:50-0500 Body height 172.7 cm Awilda Garcia MD Work Phone: [facility] 08-20-2024 12:50-0500 Body mass index (BMI) [Ratio] 27.76 kg/m2 Awilda Garcia MD Work Phone: [facility] 08-20-2024 12:50-0500 Body temperature 99.1 [degF] Awilda Garcia MD Work Phone: [facility] 08-20-2024 12:50-0500 Body weight 82.8 kg Awilda Garcia MD Work Phone: [facility] 08-20-2024 12:50-0500 Heart rate 85 /min Awilda Garcia MD Work Phone: [facility] 08-20-2024 12:50-0500 SaO2% (BldA) [Mass fraction] 98 % Awilda Garcia MD Work Phone: [facility] 07-18-2024 15:28-0400 Body height 172.7 cm George Noriega MD Work Phone: [facility] 07-18-2024 15:28-0400 Body mass index (BMI) [Ratio] 28.02 kg/m2 George Noriega MD Work Phone: [facility] 07-18-2024 15:28-0400 Body weight 83.6 kg George Noriega MD Work Phone: [facility] 07-18-2024 15:28-0400 Diastolic blood pressure 86 mm[Hg] George Noriega MD Work Phone: [facility] 07-18-2024 15:28-0400 Heart rate 85 /min George Noriega MD Work Phone: [facility] 07-18-2024 15:28-0400 Systolic blood pressure 146 mm[Hg] George Noriega MD Work Phone: [facility] 12-22-2023 14:03-0400 Diastolic blood pressure 84 mm[Hg] Awilda Garcia MD Work Phone: [facility] 12-22-2023 14:03-0400 Systolic blood pressure 137 mm[Hg] Awilda Garcia MD Work Phone: [facility] 12-22-2023 13:50-0400 Body height 167.6 cm Awilda Garcia MD Work Phone: [facility] 12-22-2023 13:50-0400 Body temperature 97.9 [degF] Awilda Garcia MD Work Phone: [facility] 12-22-2023 13:50-0400 Body weight 81.5 kg Awilda Garcia MD Work Phone: [facility] 12-22-2023 13:50-0400 Heart rate 83 /min Awilda Garcia MD Work Phone: [facility] 12-22-2023 13:50-0400 Respiratory rate 18 /min Awilda Garcia MD Work Phone: [facility] 12-22-2023 13:50-0400 SaO2% (BldA) [Mass fraction] 98 % Awilda Garcia MD Work Phone: [facility] 11-06-2023 15:48-0500 Body temperature 97.81 [degF] Kee Duffy MD Work Phone: [facility] 11-06-2023 15:48-0500 Body weight 80.1 kg Kee Duffy MD Work Phone: [facility] 11-06-2023 15:48-0500 Diastolic blood pressure 97 mm[Hg] Kee Duffy MD Work Phone: [facility] 11-06-2023 15:48-0500 Heart rate 74 /min Kee Duffy MD Work Phone: [facility] 11-06-2023 15:48-0500 Respiratory rate 18 /min Kee Duffy MD Work Phone: [facility] 11-06-2023 15:48-0500 SaO2% (BldA) [Mass fraction] 99 % Kee Duffy MD Work Phone: [facility] 11-06-2023 15:48-0500 Systolic blood pressure 160 mm[Hg] Kee Duffy MD Work Phone: [facility] 11-03-2023 10:27-0500 Diastolic blood pressure 80 mm[Hg] Stevenson Dunn MD Work Phone: [facility] 11-03-2023 10:27-0500 Heart rate 77 /min Stevenson Dunn MD Work Phone: [facility] 11-03-2023 10:27-0500 Systolic blood pressure 130 mm[Hg] Stevenson Dunn MD Work Phone: [facility] 09-23-2023 21:04-0500 Diastolic blood pressure 78 mm[Hg] [facility] 09-23-2023 21:04-0500 Heart rate 93 /min [facility] 09-23-2023 21:04-0500 Respiratory rate 14 /min [facility] 09-23-2023 21:04-0500 SaO2% (BldA) [Mass fraction] 94 % [facility] 09-23-2023 21:04-0500 Systolic blood pressure 120 mm[Hg] [facility] 09-23-2023 19:33-0500 Body mass index (BMI) [Ratio] 27.4 kg/m2 [facility] 09-23-2023 19:33-0500 Body weight 81.8 kg [facility] 09-23-2023 17:43-0500 Body height 172.72 cm [facility] 09-23-2023 17:43-0500 Body temperature 97.5 [degF] [facility] 08-23-2023 13:12-0500 Body height 172.7 cm Awilda Garcia MD Work Phone: [facility] 08-23-2023 13:12-0500 Body temperature 98.4 [degF] Awilda Garcia MD Work Phone: [facility] 08-23-2023 13:12-0500 Body weight 80.1 kg Awilda Garcia MD Work Phone: [facility] 08-23-2023 13:12-0500 Diastolic blood pressure 88 mm[Hg] Awilda Garcia MD Work Phone: [facility] 08-23-2023 13:12-0500 Heart rate 101 /min Awilda Garcia MD Work Phone: [facility] 08-23-2023 13:12-0500 Respiratory rate 16 /min Awilda Garcia MD Work Phone: [facility] 08-23-2023 13:12-0500 SaO2% (BldA) [Mass fraction] 99 % Awilda Garcia MD Work Phone: [facility] 08-23-2023 13:12-0500 Systolic blood pressure 125 mm[Hg] Awilda Garcia MD Work Phone: [facility] 06-19-2023 14:30-0400 Body height 172.72 cm Keerthi Naranjo SOLUTION LEAD [facility]; [facility] Work Phone: 06-19-2023 14:30-0400 Body mass index (BMI) [Ratio] 26.15 kg/m2 Keerthi Sararb SOLUTION LEAD [facility]; [facility] Work Phone: 06-19-2023 14:30-0400 Body surface area Derived from formula 1.92 m2 Keerthi Ruizrb SOLUTION LEAD [facility]; [facility] Work Phone: 06-19-2023 14:30-0400 Body temperature 97.3 [degF] Keerthi Slarb SOLUTION LEAD [facility]; [facility] Work Phone: Comment on above: Method: Temporal 06-19-2023 14:30-0400 Body weight 78.02 kg Keerthi Naranjo SOLUTION LEAD [facility]; [facility] Work Phone: 06-19-2023 14:30-0400 Diastolic blood pressure 78 mm[Hg] Keerthi Slarb SOLUTION LEAD [facility]; [facility] Work Phone: Comment on above: Patient Position: Sitting; Cuff Location : Left Arm; Cuff Size: Standard 06-19-2023 14:30-0400 Heart rate 93 /min Keerthi Ruizrb SOLUTION LEAD [facility]; [facility] Work Phone: Comment on above: Pattern: Regular 06-19-2023 14:30-0400 Respiratory rate 16 /min Keerthi Ruizrb SOLUTION LEAD [facility]; [facility] Work Phone: Comment on above: Pattern: Unlabored 06-19-2023 14:30-0400 SaO2% (BldA) [Mass fraction] 98 % Keerthi Slarb SOLUTION LEAD [facility]; [facility] Work Phone: Comment on above: Room air 06-19-2023 14:30-0400 Systolic blood pressure 126 mm[Hg] Keerthi Slarb SOLUTION LEAD [facility]; [facility] Work Phone: Comment on above: Patient Position: Sitting; Cuff Location : Left Arm; Cuff Size: Standard 06-16-2023 16:16-0400 Diastolic blood pressure 62 mm[Hg] [employer] PAINTER [employer] GRADER-C Shreya Cat Work Phone: [facility] 06-16-2023 16:16-0400 Heart rate 81 /min [employer]INTER [employer]ADER-C Shreya Emory Work Phone: [facility] 06-16-2023 16:16-0400 Respiratory rate 16 /min [employer]INTER [employer]ADER-[employer] Shreya Aparicioam Work Phone: [facility] 06-16-2023 16:16-0400 SaO2% (BldA) [Mass fraction] 99 % [employer] Shreya Cat Work Phone: [facility] 06-16-2023 16:16-0400 Systolic blood pressure 100 mm[Hg] [employer] Shreya Cat Work Phone: [facility] 06-16-2023 10:55-0400 Body height 172.72 cm [employer]INTER [employer]AD[employer] Shreyaseveriano Cat Work Phone: [facility] 06-16-2023 10:55-0400 Body mass index (BMI) [Ratio] 26.5 kg/m2 [employer]AD[employer] Shreyaseveriano Cat Work Phone: [facility] 06-16-2023 10:55-0400 Body temperature 97.5 [degF] [employer] Shreya Cat Work Phone: [facility] 06-16-2023 10:55-0400 Body weight 79.19 kg [employer] Shreya Aparicioam Work Phone: [facility] 05-31-2023 14:25-0400 Body height 172.72 cm LESLEY Marquez LPN [facility] Work Phone: 05-31-2023 14:25-0400 Body mass index (BMI) [Ratio] 26.15 kg/m2 LESLEY Marquez LPN [facility]; [facility] Work Phone: 05-31-2023 14:25-0400 Body surface area Derived from formula 1.92 m2 LESLEY Marquez LPN [facility]; [facility] Work Phone: 05-31-2023 14:25-0400 Body temperature 97.6 [degF] LESLEY Marquez COR[facility]; [facility] Work Phone: Comment on above: Method: Temporal 05-31-2023 14:25-0400 Body weight 78.02 kg LESLEY Marquez CORA [facility] Work Phone: 05-31-2023 14:25-0400 Diastolic blood pressure 78 mm[Hg] LESLEY Marquez CORA [facility] Work Phone: Comment on above: Patient Position: Sitting; Cuff Location : Left Arm; Cuff Size: Standard 05-31-2023 14:25-0400 Heart rate 90 /min LESLEY Marquez CORA [facility] Work Phone: Comment on above: Pattern: Regular 05-31-2023 14:25-0400 Respiratory rate 20 /min LESLEY Marquez [facility]; [facility] Work Phone: Comment on above: Pattern: Unlabored 05-31-2023 14:25-0400 SaO2% (BldA) [Mass fraction] 97 % LESLEY Marquez CORA [facility]; [facility] Work Phone: Comment on above: Room air 05-31-2023 14:25-0400 Systolic blood pressure 122 mm[Hg] LESLEY Marquez CORA [facility]; [facility] Work Phone: Comment on above: Patient Position: Sitting; Cuff Location : Left Arm; Cuff Size: Standard 05-19-2023 10:56-0400 Body mass index (BMI) [Ratio] 27.2 kg/m2 ROBINA Cat Work Phone: [facility] 05-19-2023 10:56-0400 Body weight 81.19 kg ROBINA Cat Work Phone: [facility] 05-19-2023 10:56-0400 Diastolic blood pressure 82 mm[Hg] ROBINA Cat Work Phone: [facility] 05-19-2023 10:56-0400 Heart rate 91 /min [employer] Shreya Cat Work Phone: [facility] 05-19-2023 10:56-0400 Respiratory rate 18 /min [employer] Shreya Cat Work Phone: [facility] 05-19-2023 10:56-0400 SaO2% (BldA) [Mass fraction] 99 % [employer] Shreya Cat Work Phone: [facility] 05-19-2023 10:56-0400 Systolic blood pressure 123 mm[Hg] [employer] Shreya Cat Work Phone: [facility] 05-15-2023 14:09-0400 Body weight 79.38 kg Leyla Tam MD Work Phone: [facility] 05-15-2023 14:09-0400 Diastolic blood pressure 82 mm[Hg] Leyla Tam MD Work Phone: [facility] 05-15-2023 14:09-0400 Heart rate 89 /min Leyla Tam MD Work Phone: [facility] 05-15-2023 14:09-0400 SaO2% (BldA) [Mass fraction] 98 % Leyla Tam MD Work Phone: [facility] 05-15-2023 14:09-0400 Systolic blood pressure 120 mm[Hg] Leyla Tam MD Work Phone: [facility] 04-25-2023 11:36-0400 Diastolic blood pressure 80 mm[Hg] Roby Mock MD Work Phone: [facility] 04-25-2023 11:36-0400 Heart rate 70 /min Roby Mock MD Work Phone: [facility] 04-25-2023 11:36-0400 Respiratory rate 18 /min Roby Mock MD Work Phone: [facility] 04-25-2023 11:36-0400 SaO2% (BldA) [Mass fraction] 98 % Roby Mock MD Work Phone: [facility] 04-25-2023 11:36-0400 Systolic blood pressure 119 mm[Hg] Roby Mock MD Work Phone: [facility] 04-25-2023 10:48-0400 Body temperature 97.2 [degF] Roby Mock MD Work Phone: [facility] 04-25-2023 10:22-0400 Body height 167.6 cm Roby Mock MD Work Phone: [facility] 04-25-2023 10:22-0400 Body mass index (BMI) [Ratio] 28.25 kg/m2 Roby Mock MD Work Phone: [facility] 04-25-2023 10:22-0400 Body weight 79.38 kg Roby Mock MD Work Phone: [facility] 04-14-2023 14:23-0400 Body weight 79.38 kg Sebastian Abdalla Jr., DO Work Phone: [facility] 04-14-2023 14:23-0400 Diastolic blood pressure 84 mm[Hg] Sebastian Abdalla Jr., DO Work Phone: [facility] 04-14-2023 14:23-0400 Heart rate 72 /min Sebastian Abdalla Jr., DO Work Phone: [facility] 04-14-2023 14:23-0400 SaO2% (BldA) [Mass fraction] 99 % Sebastian Abdalla Jr., DO Work Phone: [facility] 04-14-2023 14:23-0400 Systolic blood pressure 124 mm[Hg] Sebastian Abdalla Jr., DO Work Phone: [facility] 04-14-2023 10:41-0400 Body height 172.72 cm [facility] 04-14-2023 10:41-0400 Body mass index (BMI) [Ratio] 26.2 kg/m2 [facility] 04-14-2023 10:41-0400 Body temperature 98.6 [degF] [facility] 04-14-2023 10:41-0400 Body weight 78.38 kg [facility] 04-14-2023 10:41-0400 Diastolic blood pressure 89 mm[Hg] [facility] 04-14-2023 10:41-0400 Heart rate 76 /min [facility] 04-14-2023 10:41-0400 Respiratory rate 14 /min [facility] 04-14-2023 10:41-0400 SaO2% (BldA) [Mass fraction] 100 % [facility] 04-14-2023 10:41-0400 Systolic blood pressure 142 mm[Hg] [facility] 04-10-2023 15:51-0400 Body height 167.6 cm Jassi Wilson MD Work Phone: [facility] 04-10-2023 15:51-0400 Body temperature 98.1 [degF] Jassi Wilson MD Work Phone: [facility] 04-10-2023 15:51-0400 Body weight 78.29 kg Jassi Wilson MD Work Phone: [facility] 04-10-2023 15:51-0400 Diastolic blood pressure 80 mm[Hg] Jassi Wilson MD Work Phone: [facility] 04-10-2023 15:51-0400 Heart rate 99 /min Jassi Wilson MD Work Phone: [facility] 04-10-2023 15:51-0400 SaO2% (BldA) [Mass fraction] 99 % Jassi Wilson MD Work Phone: [facility] 04-10-2023 15:51-0400 Systolic blood pressure 130 mm[Hg] Jassi Wilson MD Work Phone: [facility] 03-07-2023 14:46-0400 Body height 172.72 cm Keerthi Naranjo LPN [facility]; [facility] Work Phone: 03-07-2023 14:46-0400 Body mass index (BMI) [Ratio] 26.23 kg/m2 Keerthi Slarb SOLUTION LEAD [facility]; [facility] Work Phone: 03-07-2023 14:46-0400 Body surface area Derived from formula 1.92 m2 Keerthi Slarb SOLUTION LEAD [facility]; [facility] Work Phone: 03-07-2023 14:46-0400 Body temperature 97.6 [degF] Keerthi Slarb SOLUTION LEAD [facility]; [facility] Work Phone: Comment on above: Method: Temporal 03-07-2023 14:46-0400 Body weight 78.25 kg Keerthi Slarb SOLUTION LEAD [facility]; [facility] Work Phone: 03-07-2023 14:46-0400 Diastolic blood pressure 78 mm[Hg] Keerthi Slarb SOLUTION LEAD [facility]; [facility] Work Phone: Comment on above: Patient Position: Sitting; Cuff Location : Left Arm; Cuff Size: Standard 03-07-2023 14:46-0400 Heart rate 76 /min Keerthi Slarb SOLUTION LEAD [facility]; [facility] Work Phone: Comment on above: Pattern: Regular 03-07-2023 14:46-0400 Respiratory rate 15 /min Keerthi Slarb SOLUTION LEAD [facility]; [facility] Work Phone: Comment on above: Pattern: Unlabored 03-07-2023 14:46-0400 SaO2% (BldA) [Mass fraction] 97 % Keerthi Slarb SOLUTION LEAD [facility]; [facility] Work Phone: Comment on above: Room air 03-07-2023 14:46-0400 Systolic blood pressure 128 mm[Hg] Keerthi Slarb SOLUTION LEAD [facility]; [facility] Work Phone: Comment on above: Patient Position: Sitting; Cuff Location : Left Arm; Cuff Size: Standard 02-09-2023 00:10-0400 Heart rate 86 /min ROBINA Cat Work Phone: [facility] 02-09-2023 00:10-0400 Respiratory rate 19 /min [employer] Shreya Cat Work Phone: [facility] 02-09-2023 00:10-0400 SaO2% (BldA) [Mass fraction] 96 % [employer] Shreya Cat Work Phone: [facility] 02-08-2023 21:08-0400 Body height 172.72 cm [employer] Shreya Cat Work Phone: [facility] 02-08-2023 21:08-0400 Body mass index (BMI) [Ratio] 26.4 kg/m2 [employer] Shreya Cat Work Phone: [facility] 02-08-2023 21:08-0400 Body temperature 97.7 [degF] [employer] Shreya Cat Work Phone: [facility] 02-08-2023 21:08-0400 Body weight 78.92 kg [employer] Shreya Cat Work Phone: [facility] 02-08-2023 21:08-0400 Diastolic blood pressure 77 mm[Hg] [employer]AD[employer] Shreya Cat Work Phone: [facility] 02-08-2023 21:08-0400 Systolic blood pressure 139 mm[Hg] [employer]ADER[employer] Shreya Cat Work Phone: [facility] 02-08-2023 14:22-0400 Body height 172.72 cm [facility] Work Phone: 02-08-2023 14:22-0400 Body mass index (BMI) [Ratio] 26.23 kg/m2 [facility] Work Phone: 02-08-2023 14:22-0400 Body surface area Derived from formula 1.92 m2 [facility]; [facility] Work Phone: 02-08-2023 14:22-0400 Body temperature 97.2 [degF] [place] [facility] Work Phone: 02-08-2023 14:22-0400 Body weight 78.25 kg Johnnie Efrain [facility]; [facility] Work Phone: 02-08-2023 14:22-0400 Diastolic blood pressure 82 mm[Hg] [place] [facility]; [facility] Work Phone: Comment on above: Patient Position: Sitting; Cuff Location : Left Arm; Cuff Size: Standard 02-08-2023 14:22-0400 Heart rate 113 /min [place] [facility]; [facility] Work Phone: Comment on above: Pattern: Regular 02-08-2023 14:22-0400 Respiratory rate 17 /min [place] [facility] Work Phone: Comment on above: Pattern: Unlabored 02-08-2023 14:22-0400 SaO2% (BldA) [Mass fraction] 99 % [place] [facility]; [facility] Work Phone: Comment on above: Room air 02-08-2023 14:22-0400 Systolic blood pressure 126 mm[Hg] [place] [facility]; [facility] Work Phone: Comment on above: Patient Position: Sitting; Cuff Location : Left Arm; Cuff Size: Standard 01-31-2023 13:57-0400 Body height 175.3 cm Prashanth Luna ASSISTANT SERVICE MANAGER.[employer] Work Phone: [facility] 01-31-2023 13:57-0400 Body weight 78.47 kg Prashanth Luna ASSISTANT SERVICE MANAGER.[employer] Work Phone: [facility] 01-31-2023 13:57-0400 Diastolic blood pressure 118 mm[Hg] Prashanth Luna ASSISTANT SERVICE MANAGER.[employer] Work Phone: [facility] 01-31-2023 13:57-0400 Heart rate 88 /min Prashanth Luna ASSISTANT SERVICE MANAGER.[employer] Work Phone: [facility] 01-31-2023 13:57-0400 SaO2% (BldA) [Mass fraction] 99 % Prashanth Luna ASSISTANT SERVICE MANAGER.[employer] Work Phone: [facility] 01-31-2023 13:57-0400 Systolic blood pressure 159 mm[Hg] Prashanth Luna ASSISTANT SERVICE MANAGER.[employer] Work Phone: [facility] 01-23-2023 10:00-0400 Diastolic blood pressure 110 mm[Hg] Usman [place] [employer] WE[employer] ENGINEER Work Phone: [facility] 01-23-2023 10:00-0400 Heart rate 99 /min Usman [place] [employer] WE[employer] ENGINEER Work Phone: [facility] 01-23-2023 10:00-0400 Systolic blood pressure 164 mm[Hg] Usman [place] [employer] WE[employer] ENGINEER Work Phone: [facility] 12-20-2022 13:49-0400 Diastolic blood pressure 75 mm[Hg] Awilda Garcia MD Work Phone: [facility] 12-20-2022 13:49-0400 Systolic blood pressure 125 mm[Hg] Awilda Garcia MD Work Phone: [facility] 12-20-2022 13:08-0400 Body height 175.3 cm Awilda Garcia MD Work Phone: [facility] 12-20-2022 13:08-0400 Body weight 77.56 kg Awilda Garcia MD Work Phone: [facility] 12-20-2022 13:08-0400 Heart rate 90 /min Awilda Garcia MD Work Phone: [facility] 12-20-2022 13:08-0400 SaO2% (BldA) [Mass fraction] 99 % Awilda Garcia MD Work Phone: [facility] 11-23-2022 08:40-0500 Body mass index (BMI) [Ratio] 28 kg/m2 [employer]AD[employer] Shreya Cat Work Phone: [facility] 11-23-2022 08:40-0500 Body weight 78.69 kg [employer]AD[employer] Shreya Cat Work Phone: [facility] 11-23-2022 08:40-0500 Diastolic blood pressure 100 mm[Hg] [employer]ADER-C Shreya Cat Work Phone: [facility] 11-23-2022 08:40-0500 Heart rate 71 /min [employer]ADER-[employer] Shreya Cat Work Phone: [facility] 11-23-2022 08:40-0500 Respiratory rate 18 /min [employer] GRADER-C Shreya Cat Work Phone: [facility] 11-23-2022 08:40-0500 SaO2% (BldA) [Mass fraction] 99 % [employer]ADER-C Shreya Cat Work Phone: [facility] 11-23-2022 08:40-0500 Systolic blood pressure 170 mm[Hg] [employer] PAINTER [employer] GRADER-C Shreya Cat Work Phone: [facility] 10-21-2022 11:07-0500 Body height 172.72 cm Yvette [...] 09-19-2022 08:22-0500 Respiratory rate 16 /min Yvette Hernandez MA [facility]; [...] Standard 07-27-2022 12:35-0400 Body height 167.64 cm [employer]ADER-[employer] Shreya Cat Work Phone: [facility] Work Phone: 07-27-2022 12:35-0400 Body mass index (BMI) [Ratio] 27.7 kg/m2 [employer] GRADER-C Shreya Cat Work Phone: [facility] Work Phone: 07-27-2022 12:35-0400 Body weight 78.01 kg [employer] PAINTER AND GRADER-C Shreya Cat Work Phone: [facility] Work Phone: 07-27-2022 12:35-0400 Diastolic blood pressure 104 mm[Hg] [employer] PAINTER [employer] GRADER-C Shreya Cat Work Phone: [facility] Work Phone: 07-27-2022 12:35-0400 Heart rate 82 /min [employer] PAINTER AND GRADER-C Shreya Cat Work Phone: [facility] Work Phone: 07-27-2022 12:35-0400 Respiratory rate 16 /min [employer] PAINTER AND GRADER-C Shreya Cat Work Phone: [facility] Work Phone: 07-27-2022 12:35-0400 SaO2% (BldA) [Mass fraction] 100 % [employer] GRADER-C Shreya Cat Work Phone: [facility] Work Phone: 07-27-2022 12:35-0400 Systolic blood pressure 148 mm[Hg] [employer] PAINTER AND GRADER-C Shreya Cat Work Phone: [facility] Work Phone: 07-13-2022 15:21-0400 Body height 172.72 cm Keerthi Slarb SOLUTION LEAD [facility]; [facility] Work Phone: 07-13-2022 15:21-0400 Body mass index (BMI) [Ratio] 26.19 kg/m2 Keerthi Slarb SOLUTION LEAD [facility]; [facility] Work Phone: 07-13-2022 15:21-0400 Body surface area Derived from formula 1.92 m2 Keerthi Slarb SOLUTION LEAD [facility]; [facility] Work Phone: 07-13-2022 15:21-0400 Body temperature 97.1 [degF] Keerthi Slarb SOLUTION LEAD [facility]; [facility] Work Phone: 07-13-2022 15:21-0400 Body weight 78.13 kg Keerthi Slarb SOLUTION LEAD [facility]; [facility] Work Phone: 07-13-2022 15:21-0400 Diastolic blood pressure 98 mm[Hg] Keerthi Slarb SOLUTION LEAD [facility]; [facility] Work Phone: Comment on above: Patient Position: Sitting; Cuff Location : Left Arm; Cuff Size: Standard 07-13-2022 15:21-0400 Heart rate 103 /min Keerthi Slarb SOLUTION LEAD [facility]; [facility] Work Phone: Comment on above: Pattern: Regular 07-13-2022 15:21-0400 Respiratory rate 16 /min Keerthi Slarb SOLUTION LEAD [facility]; [facility] Work Phone: Comment on above: Pattern: Unlabored 07-13-2022 15:21-0400 SaO2% (BldA) [Mass fraction] 98 % Keerthi Slarb SOLUTION LEAD [facility]; [facility] Work Phone: Comment on above: Room air 07-13-2022 15:21-0400 Systolic blood pressure 162 mm[Hg] Keerthi Slarb SOLUTION LEAD [facility]; [facility] Work Phone: Comment on above: Patient Position: Sitting; Cuff Location : Left Arm; Cuff Size: Standard 07-08-2022 15:31-0400 Diastolic blood pressure 96 mm[Hg] [facility] Work Phone: 07-08-2022 15:31-0400 Heart rate 80 /min [facility] Work Phone: 07-08-2022 15:31-0400 Respiratory rate 12 /min [facility] Work Phone: 07-08-2022 15:31-0400 SaO2% (BldA) [Mass fraction] 96 % [facility] Work Phone: 07-08-2022 15:31-0400 Systolic blood pressure 135 mm[Hg] [facility] Work Phone: 07-08-2022 11:53-0400 Body height 167.64 cm [facility] Work Phone: 07-08-2022 11:53-0400 Body mass index (BMI) [Ratio] 28 kg/m2 [facility] Work Phone: 07-08-2022 11:53-0400 Body temperature 97.4 [degF] [facility] Work Phone: 07-08-2022 11:53-0400 Body weight 78.8 kg [facility] Work Phone: 06-22-2022 21:11-0400 Diastolic blood pressure 95 mm[Hg] [facility] Work Phone: 06-22-2022 21:11-0400 Heart rate 71 /min [facility] Work Phone: 06-22-2022 21:11-0400 Respiratory rate 15 /min [facility] Work Phone: 06-22-2022 21:11-0400 SaO2% (BldA) [Mass fraction] 98 % [facility] Work Phone: 06-22-2022 21:11-0400 Systolic blood pressure 133 mm[Hg] [facility] Work Phone: 06-22-2022 18:03-0400 Body temperature 97.8 [degF] [facility] Work Phone: 06-22-2022 15:34-0400 Body height 172.72 cm [facility] Work Phone: 06-22-2022 15:34-0400 Body mass index (BMI) [Ratio] 26.1 kg/m2 [facility] Work Phone: 06-22-2022 15:34-0400 Body weight 78.01 kg [facility] Work Phone: 06-15-2022 10:25-0400 Body height 172.72 cm Ting Marte LPN [facility] Work Phone: 06-15-2022 10:25-0400 Body mass index (BMI) [Ratio] 26.19 kg/m2 Ting Marte LPN [facility]; [facility] Work Phone: 06-15-2022 10:25-0400 Body surface area Derived from formula 1.92 m2 Ting Marte LPN [facility]; [...] 10:25-0400 Heart rate 104 /min Ting Marte LPN [facility]; [facility] Work Phone: Comment on above: Pattern: Regular 06-15-2022 10:25-0400 Respiratory rate 16 /min Ting Marte LPN [...] 06-03-2022 19:00-0400 Diastolic blood pressure 90 mm[Hg] [facility] Work Phone: 06-03-2022 19:00-0400 Heart rate 77 /min [facility] Work Phone: 06-03-2022 19:00-0400 Respiratory rate 20 /min [facility] Work Phone: 06-03-2022 19:00-0400 SaO2% (BldA) [Mass fraction] 94 % [facility] Work Phone: 06-03-2022 19:00-0400 Systolic blood pressure 138 mm[Hg] [facility] Work Phone: 06-03-2022 15:23-0400 Body mass index (BMI) [Ratio] 24.3 kg/m2 [facility] Work Phone: 06-03-2022 15:23-0400 Body temperature 98.7 [degF] [facility] Work Phone: 06-03-2022 15:23-0400 Body weight 72.57 kg [facility] Work Phone: 05-31-2022 13:38-0400 Body height 172.72 [...] 05-27-2022 16:49-0400 Diastolic blood pressure 104 mm[Hg] [facility] Work Phone: 05-27-2022 16:49-0400 Heart rate 72 /min [facility] Work Phone: 05-27-2022 16:49-0400 Respiratory rate 16 /min [facility] Work Phone: 05-27-2022 16:49-0400 SaO2% (BldA) [Mass fraction] 96 % [facility] Work Phone: 05-27-2022 16:49-0400 Systolic blood pressure 173 mm[Hg] [facility] Work Phone: 05-27-2022 14:41-0400 Body height 172.72 cm [facility] Work Phone: 05-27-2022 14:41-0400 Body mass index (BMI) [Ratio] 26.7 kg/m2 [facility] Work Phone: 05-27-2022 14:41-0400 Body temperature 98.2 [degF] [facility] Work Phone: 05-27-2022 14:41-0400 Body weight 79.83 kg [facility] Work Phone: 05-27-2022 08:27-0400 Body height 172.72 cm Keerthi Slarb SOLUTION LEAD [facility] Work Phone: 05-27-2022 08:27-0400 Body mass index (BMI) [Ratio] 26.68 kg/m2 Keerthi Slarb SOLUTION LEAD [facility]; [facility] Work Phone: 05-27-2022 08:27-0400 Body surface area Derived from formula 1.93 m2 Keerthi Slarb SOLUTION LEAD [facility]; [facility] Work Phone: 05-27-2022 08:27-0400 Body temperature 97.5 [degF] Keerthi Slarb SOLUTION LEAD [facility]; [facility] Work Phone: 05-27-2022 08:27-0400 Body weight 79.61 kg Keerthi Slarb SOLUTION LEAD [facility]; [facility] Work Phone: 05-27-2022 08:27-0400 Diastolic blood pressure 96 mm[Hg] Keerthi Slarb SOLUTION LEAD [facility]; [facility] Work Phone: Comment on above: Patient Position: Sitting; Cuff Location : Left Arm; Cuff Size: Standard 05-27-2022 08:27-0400 Heart rate 79 /min Keerthi Slarb SOLUTION LEAD [facility]; [facility] Work Phone: Comment on above: Pattern: Regular 05-27-2022 08:27-0400 Respiratory rate 16 /min Keerthi Slarb SOLUTION LEAD [facility]; [facility] Work Phone: Comment on above: Pattern: Unlabored 05-27-2022 08:27-0400 SaO2% (BldA) [Mass fraction] 99 % Keerthi Naranjo LPN [facility]; [facility] Work Phone: Comment on above: Room air 05-27-2022 08:27-0400 Systolic blood pressure 158 mm[Hg] Keerthi Naranjo LPN [facility]; [facility] [...] Derived from formula 1.93 m2 Ting Marte CORA [facility]; [facility] Work Phone: 05-11-2022 13:44-0400 Body temperature 97.9 [degF] Ting Marte LPN [facility]; [facility] Work Phone: 05-11-2022 13:44-0400 Body weight 79.61 kg Ting Marte SOLUTION LEAD [facility]; [facility] Work Phone: 05-11-2022 13:44-0400 Diastolic blood pressure 100 mm[Hg] Ting Marte SOLUTION LEAD [facility]; [facility] Work Phone: Comment on above: Patient Position: Sitting; Cuff Location : Left Arm; Cuff Size: Standard 05-11-2022 13:44-0400 Heart rate 89 /min Ting Marte SOLUTION LEAD [facility]; [facility] Work Phone: Comment on above: Pattern: Regular 05-11-2022 13:44-0400 Respiratory rate 16 /min Ting Marte LPN [facility]; [facility] Work Phone: Comment on above: Pattern: Unlabored 05-11-2022 13:44-0400 SaO2% (BldA) [Mass fraction] 98 % Ting Marte LPN [facility]; [facility] Work Phone: Comment on above: Room air 05-11-2022 13:44-0400 Systolic blood pressure 130 mm[Hg] Ting Marte LPN [facility]; [facility] Work Phone: Comment on above: Patient Position: Sitting; Cuff Location : Left Arm; Cuff Size: Standard 05-05-2022 12:59-0400 Heart rate 98 /min [facility] Work Phone: 05-05-2022 10:26-0400 Body height 172.72 cm [facility] Work Phone: 05-05-2022 10:26-0400 Body mass index (BMI) [Ratio] 26.8 kg/m2 [facility] Work Phone: 05-05-2022 10:26-0400 Body temperature 97.3 [degF] [facility] Work Phone: 05-05-2022 10:26-0400 Body weight 80.1 kg [facility] Work Phone: 05-05-2022 10:26-0400 Diastolic blood pressure 135 mm[Hg] [facility] Work Phone: 05-05-2022 10:26-0400 Respiratory rate 14 /min [facility] Work Phone: 05-05-2022 10:26-0400 SaO2% (BldA) [Mass fraction] 100 % [facility] Work Phone: 05-05-2022 10:26-0400 Systolic blood pressure 176 mm[Hg] [facility] Work Phone: 03-08-2022 14:12-0400 Body height 175.3 cm Awilda Garcia MD Work Phone: [facility] 03-08-2022 14:12-0400 Body temperature 97.7 [degF] Awilda Garcia MD Work Phone: [facility] 03-08-2022 14:12-0400 Body weight 78.56 kg Awilda Garcia MD Work Phone: [facility] 03-08-2022 14:12-0400 Diastolic blood pressure 82 mm[Hg] Awilda Garcia MD Work Phone: [facility] 03-08-2022 14:12-0400 Heart rate 88 /min Awilda Garcia MD Work Phone: [facility] 03-08-2022 14:12-0400 SaO2% (BldA) [Mass fraction] 95 % Awilda Garcia MD Work Phone: [facility] 03-08-2022 14:12-0400 Systolic blood pressure 130 mm[Hg] Awilda Garcia MD Work Phone: [facility] 01-28-2022 05:48-0400 Body height 172.72 cm [facility] Work Phone: 01-28-2022 05:48-0400 Body mass index (BMI) [Ratio] 27.1 kg/m2 [facility] Work Phone: 01-28-2022 05:48-0400 Body temperature 98.6 [degF] [facility] Work Phone: 01-28-2022 05:48-0400 Body weight 80.8 kg [facility] Work Phone: 01-28-2022 05:48-0400 Diastolic blood pressure 110 mm[Hg] [facility] Work Phone: 01-28-2022 05:48-0400 Heart rate 98 /min [facility] Work Phone: 01-28-2022 05:48-0400 Respiratory rate 18 /min [facility] Work Phone: 01-28-2022 05:48-0400 SaO2% (BldA) [Mass fraction] 97 % [facility] Work Phone: 01-28-2022 05:48-0400 Systolic blood pressure 175 mm[Hg] [facility] Work Phone: 01-26-2022 14:49-0400 Body height 172.72 cm Evelia Geronimo [facility]; [facility] Work Phone: 01-26-2022 14:49-0400 Body mass index (BMI) [Ratio] 27.37 kg/m2 Evelia Geronimo [facility]; [facility] Work Phone: 01-26-2022 14:49-0400 Body surface area Derived from formula 1.95 m2 Evelia Geronimo [facility]; [facility] Work Phone: 01-26-2022 14:49-0400 Body temperature 97.3 [degF] Evelia Geronimo [employer] [facility]; [facility] Work Phone: Comment on above: Method: Infrared 01-26-2022 14:49-0400 Body weight 81.65 kg Evelia Geronimo [facility]; [facility] Work Phone: 01-26-2022 14:49-0400 Diastolic blood pressure 82 mm[Hg] Evelia Geronimo [facility]; [facility] Work Phone: Comment on above: Patient Position: Sitting; Cuff Location : Left Arm; Cuff Size: Standard 01-26-2022 14:49-0400 Heart rate 86 /min Evelia Geronimo [facility]; [facility] Work Phone: Comment on above: Pattern: Regular 01-26-2022 14:49-0400 Respiratory rate 16 /min Evelia Geronimo [employer] [facility]; [facility] Work Phone: Comment on above: Pattern: Unlabored 01-26-2022 14:49-0400 SaO2% (BldA) [Mass fraction] 99 % Evelia Geronimo [facility]; [facility] Work Phone: Comment on above: Room air 01-26-2022 14:49-0400 Systolic blood pressure 138 mm[Hg] Evelia Geronimo [facility]; [facility] Work Phone: Comment on above: Patient Position: Sitting; Cuff Location : Left Arm; Cuff Size: Standard 12-17-2021 11:29-0400 Body mass index (BMI) [Ratio] 26.6 kg/m2 [facility] Work Phone: 12-17-2021 11:29-0400 Body temperature 98.9 [degF] [facility] Work Phone: 12-17-2021 11:29-0400 Body weight 79.37 kg [facility] Work Phone: 12-17-2021 11:29-0400 Diastolic blood pressure 108 mm[Hg] [facility] Work Phone: 12-17-2021 11:29-0400 Heart rate 100 /min [facility] Work Phone: 12-17-2021 11:29-0400 Respiratory rate 18 /min [facility] Work Phone: 12-17-2021 11:29-0400 SaO2% (BldA) [Mass fraction] 99 % [facility] Work Phone: 12-17-2021 11:29-0400 Systolic blood pressure 166 mm[Hg] [facility] Work Phone: 03-17-2021 08:00-0400 Body height 172.72 [...] 03-17-2021 08:00-0400 Respiratory rate 16 /min Carlos Rosaels LPN [facility]; [facility] [...] BMI (Body Mass Index) 27.83 kg/m2 Estela Alexandra [facility]; [facility] Work Phone: 01-12-2021 08:48-0400 Body weight 83.02 kg Estela Alexandra [facility]; [facility] Work Phone: 01-12-2021 08:48-0400 BSA (Body Surface Area) 1.97 m2 Estela Alexandra [facility]; [facility] Work Phone: 01-12-2021 08:48-0400 Height 172.72 cm Estela Alexandra [facility]; [facility] Work Phone: [...] 09:32-0400 Pulse Oximetry 97 % Estela Alexandra [facility]; [facility] Work Phone: [...] BP Diastolic 80 mm[Hg] Carlos Rosales LPN [facility] Internal Medicine Work Phone: Comment on above: Patient Position: Sitting; Cuff Location : Left Arm; Cuff Size: Standard 07-31-2020 07:54-0400 BP Systolic 132 mm[Hg] Carlos Rosales LPN [facility] Internal Medicine Work Phone: Comment on above: Patient Position: Sitting; Cuff Location : Left Arm; Cuff Size: Standard 07-31-2020 07:54-0400 BSA (Body Surface Area) 1.97 m2 Carlos Rosales LPN [facility] Internal Medicine Work Phone: 07-31-2020 07:54-0400 Height 172.72 cm Carlos Rosales LPN [facility] Internal Medicine Work Phone: 07-31-2020 07:54-0400 Pulse (Heart Rate) 80 /min Carlos Rosales LPN [facility] Work Phone: Comment on above: Pattern: Regular 07-31-2020 07:54-0400 Pulse Oximetry 98 % Estela Alexandra [facility] Work Phone: Comment on above: Room air 07-31-2020 07:54-0400 Respiratory Rate 16 /min Carlos Rosales LPN [facility] Internal Medicine Work Phone: Comment on above: Pattern: Unlabored 07-31-2020 07:54-0400 SaO2% (BldA) [Mass fraction] 98 % Carlos Rosales LPN [facility] Internal [facility]; [facility] Work Phone: Comment on above: Room air 06-17-2020 12:55-0400 BMI (Body Mass Index) 27.68 kg/m2 Carlos Rosales LPN [facility] Internal Medicine Work Phone: 06-17-2020 12:55-0400 Body Temperature 97.3 [degF] Carlos Rosales LPN [facility] Internal Medicine Work Phone: Comment on above: Method: Infrared 06-17-2020 12:55-0400 Body weight 82.56 kg Carlos Rosales LPN [facility] Work Phone: 06-17-2020 12:55-0400 BP Diastolic 84 mm[Hg] Carlos Rosales [facility] Internal Medicine Work Phone: Comment on above: Patient Position: Sitting; Cuff Location : Left Arm; Cuff Size: Standard 06-17-2020 12:55-0400 BP Systolic 152 mm[Hg] Carlos Rsoales [facility] Internal Medicine Work Phone: Comment on above: Patient Position: Sitting; Cuff Location : Left Arm; Cuff Size: Standard 06-17-2020 12:55-0400 BSA (Body Surface Area) 1.96 m2 Carlos Rosales [facility] Work Phone: 06-17-2020 12:55-0400 Height 172.72 cm Carlos Rosales [facility] Internal Medicine Work Phone: 06-17-2020 12:55-0400 Pulse (Heart Rate) 90 /min Carlos Rosales LPN [facility] Work Phone: Comment on above: Pattern: Regular 06-17-2020 12:55-0400 Pulse Oximetry 98 % Estela Alexandra [facility] Work Phone: Comment on above: Room air 06-17-2020 12:55-0400 Respiratory Rate 21 /min Carlos Rosales [facility] Internal Medicine Work Phone: Comment on above: Pattern: Unlabored 06-17-2020 12:55-0400 SaO2% (BldA) [Mass fraction] 98 % Carlos Rosales [facility] Internal Medicine; [facility] Work Phone: Comment on above: Room air 06-09-2020 09:41-0400 BMI (Body Mass Index) 27.67 kg/m2 Keerthi Naranjo [facility] Work Phone: 06-09-2020 09:41-0400 Body Temperature 97.5 [degF] Keerthi Naranjo [facility] Work Phone: 06-09-2020 09:41-0400 Body weight 82.56 kg Keerthi Naranjo [facility] Internal Medicine Work Phone: 06-09-2020 09:41-0400 BP Diastolic 90 mm[Hg] Keerthi Slarb SOLUTION LEAD [facility] Work Phone: Comment on above: Patient Position: Sitting; Cuff Location : Left Arm; Cuff Size: Standard 06-09-2020 09:41-0400 BP Systolic 142 mm[Hg] Keerthi Slarb SOLUTION LEAD [facility] Work Phone: Comment on above: Patient Position: Sitting; Cuff Location : Left Arm; Cuff Size: Standard 06-09-2020 09:41-0400 BSA (Body Surface Area) 1.96 m2 Keerthi Slarb SOLUTION LEAD [facility] Work Phone: 06-09-2020 09:41-0400 Height 172.72 cm Keerthi Slarb SOLUTION LEAD [facility] Work Phone: 06-09-2020 09:41-0400 Pulse (Heart Rate) 89 /min Keerthi Slarb SOLUTION LEAD [facility] Work Phone: Comment on above: Pattern: Regular 06-09-2020 09:41-0400 Pulse Oximetry 90 % Estela Alexandra [facility] Work Phone: Comment on above: Room air 06-09-2020 09:41-0400 Respiratory Rate 16 /min Keerthi Slarb SOLUTION LEAD [facility] Work Phone: Comment on above: Pattern: Unlabored 06-09-2020 09:41-0400 SaO2% (BldA) [Mass fraction] 90 % Keerthi Slarb SOLUTION LEAD [facility]; [facility] Work Phone: Comment on above: Room air Encounters Encounter Date Encounter Type Care Provider Facility Start: 07-15-2025 End: 07-15-2025 ambulatory [facility] Facility:[facility] Start: 07-14-2025 End: 07-14-2025 ambulatory [facility] Facility:[facility] Start: 07-14-2025 Encounter for preprocedural laboratory examination [facility] Start: 06-24-2025 End: 06-24-2025 ambulatory ERIN GONG Facility:[facility] Start: 06-21-2025 End: 06-22-2025 Emergency department patient visit Out of Town Doctor Facility:[facility] Start: 05-15-2025 End: 05-16-2025 Refill Awilda Garcia MD Work Phone: Internal Medicine [facility] Comment on above: Refill Request Start: 05-08-2025 End: 05-08-2025 ambulatory TRISTIAN CHAUDHARY Facility:[facility] Start: 04-30-2025 End: 04-30-2025 Office outpatient visit 25 minutes Awilda Garcia MD Work Phone: Internal Medicine [facility] Comment on above: Essential hypertensi on (Primary Dx); Mixed hyperlipidemia; Hyperglycemia; Screen for colon cancer Start: 04-30-2025 End: 04-30-2025 ambulatory AWILDA GARCIA Facility:[facility] Start: 04-14-2025 End: 04-14-2025 Emergency department patient visit Shreya QUARLES Work Phone: -Emergency Department Work Phone: Start: 04-08-2025 End: 04-08-2025 ambulatory Awilda Garcia MD Work Phone: Internal Medicine [place] [id number] Start: 03-26-2025 End: 03-26-2025 Emergency department patient visit Shreya JOEC Work Phone: -Emergency Department Work Phone: Start: 03-21-2025 End: 06-04-2025 Refill Awilda Garcia MD Work Phone: [address] [place] [address] Comment on above: Refill Request Start: 03-03-2025 End: 03-04-2025 Refill Awilda Garcia MD Work Phone: [address] [place] [address] Comment on above: Refill Request Start: 12-04-2024 End: 12-04-2024 Telephone encounter George Noriega MD Work Phone: Cardiology Start: 12-03-2024 End: 12-03-2024 ambulatory GEORGE NORIEGA Facility:[facility] Start: 12-03-2024 End: 12-03-2024 Office outpatient visit 25 minutes George Noriega MD Work Phone: Cardiology Comment on above: Essential hypertensi on (Primary Dx); Mixed hyperlipidemia Start: 11-26-2024 End: 11-26-2024 ambulatory Awilda Garcia MD Work Phone: Internal Medicine [place] [id number] Start: 11-13-2024 End: 11-13-2024 ambulatory Jovana Sexton RN Protection Specialist [facility] Start: 11-11-2024 End: 11-11-2024 Emergency department patient visit [facility] Facility:[facility] Start: 10-22-2024 End: 10-22-2024 ambulatory AWILDA AMY Facility:[facility] Start: 10-21-2024 End: 10-21-2024 ambulatory GEORGE HARI Facility:[facility] Start: 10-18-2024 End: 10-18-2024 ambulatory [facility] HARI Facility:[facility] Start: 09-18-2024 End: 09-18-2024 Telephone encounter George Noriega MD Work Phone: Cardiology Comment on above: Procedure (Reschedul ing heart cath) Start: 09-03-2024 ambulatory Shreya [place] Facility :[facility] Start: 08-21-2024 End: 08-21-2024 Refill Awilda Garcia MD Work Phone: [address] [place] [address] Comment on above: Refill Request; Erro neous encounter-disregard Start: 08-20-2024 End: 08-20-2024 ambulatory AWILDA GARCIA Facility:[facility] Start: 08-20-2024 End: 08-20-2024 Patient encounter procedure Awilda Garcia MD Work Phone: Internal Medicine [facility] Comment on above: Essential hypertensi on (Primary Dx); Encounter for immunization; Hyperlipidemia, unspecified hyperlipidemia type; 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) Start: 08-15-2024 End: 08-15-2024 Emergency department patient visit Arash Pink Facility:[facility] Start: 07-22-2024 End: 07-22-2024 Telephone encounter George Noriega MD Work Phone: Cardiology Comment on above: Procedure (Heart cat h) Start: 07-18-2024 End: 07-18-2024 ambulatory AWILDA GARCIA Facility[facility] Start: 07-18-2024 End: 07-18-2024 Office outpatient visit 40 minutes George Noriega MD Work Phone: Cardiology Comment on above: Coronary artery dise ase of [place] artery [place] heart with stable angina pectoris (HCC); Hyperlipidemia, unspecified hyperlipidemia type Start: 06-27-2024 End: 06-27-2024 Refill George Noriega MD Work Phone: Cardiology Comment on above: Refill Request Start: 06-06-2024 End: 06-07-2024 Refill George Noriega MD Work Phone: Cardiology Comment on above: Refill Request Start: 04-24-2024 Refill Awilda Joy Work Phone: [address] [place] [address] Comment on above: Refill Request Start: 12-22-2023 End: 12-22-2023 Patient encounter procedure Awilda Garcia MD Work Phone: Internal Medicine [facility] Comment on above: Essential hypertensi on (Primary Dx); Mixed hyperlipidemia; Screen for colon cancer Start: 12-05-2023 ambulatory Awilda Joy Work Phone: Internal Medicine [facility] [place] Start: 11-30-2023 End: 11-30-2023 ambulatory STEVENSON DUNN [facility] Start: 11-08-2023 Telephone encounter Kee Duffy MD [...] procedure Pulm Fct Lab Main [facility] Comment on above: Moderate persistent asthma without complication (Primary Dx) Start: 11-03-2023 End: 11-03-2023 Patient encounter procedure Stevenson Dunn MD Work Phone: Neurology Comment on above: Convulsive syncope ( Primary Dx); Syncope, unspecified syncope type Start: 09-23-2023 End: 09-23-2023 [facility] Start: 08-28-2023 Orders Only Sabrina bee MD Work Phone: Pulmonary Medicine Comment on above: Shortness of breath (Primary Dx) Start: 08-23-2023 End: 08-23-2023 Patient encounter procedure Awilda Garcia MD Work Phone: Internal Medicine [facility] Comment on above: Essential hypertensi on (Primary Dx); Mixed hyperlipidemia; Gastroesophageal reflux disease without esophagitis Start: 06-19-2023 End: 06-26-2023 Office consultation new/estab patient 40 min Shreya Cat CNP Work Phone: [facility] Start: 06-19-2023 Review Shreya Cat CNP Work Phone: [facility] Start: 06-16-2023 End: 06-16-2023 Emergency department 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-C Shreya Cat Work Phone: [facility] Work Phone: Start: 06-06-2023 ambulatory Awilda Joy Work Phone: Internal Medicine [facility] Start: 05-31-2023 End: 06-11-2023 Office outpatient visit 15 minutes Shreya Cat CNP Work Phone: [facility] Start: 05-31-2023 Review Shreya Cat CNP Work Phone: [facility] Start: 05-19-2023 End: 05-19-2023 Patient encounter procedure ROBINA Cat Work Phone: [facility] Work Phone: Start: 05-15-2023 End: 05-16-2023 ambulatory LEYLA TAM Facility:[facility] Start: 05-15-2023 Chart abstracting Jose Case LETTER OF CREDIT CLERK Pulmonary Medicine Start: 05-15-2023 End: 05-15-20[facility] Work Phone: [facility] Comment on above: Spirometry Start: 05-15-2023 End: 05-15-2023 Patient encounter procedure Pul Fct Lab [facility] Work Phone: [facility] Comment on above: Shortness of breath (Primary [...] Subsequent hospital visit by physician Tiffanie Mays [facility] Work Phone: Nuclear Medicine Comment on above: Coronary artery dise ase of [place] artery of [place] heart with stable angina pectoris (HCC) [I25.118] Start: 04-14-2023 End: 04-14-2023 Patient encounter procedure Sebastian Abdalla DO Work Phone: Gastgroenterology Comment on above: Hiatal hernia (Prima ry Dx); Esophageal dysphagia; Gastroesophageal reflux disease, unspecified whether esophagitis present; Screening for colorectal cancer Start: 04-14-2023 End: 04-14-2023 Emergency department patient visit [facility] Work Phone: Start: 04-10-2023 End: 04-10-2023 Patient encounter procedure Jassi Wilson MD Work Phone: General Surgery Comment on above: Calculus of [place] with chronic cholecystitis without obstruction (Primary Dx); RUQ pain Start: 04-05-2023 Telephone encounter Ab[facility] Outpatient Physical Therapy Comment on above: No Show (Attempted t o call patient regarding 3 no shows and policy to cancel future appointments. Phone number does not work) Start: 04-03-2023 Telephone encounter Awilda elias MD Work Phone: Internal Medicine [facility] Comment on above: Orders Persistent asthma wi th status asthmaticus, unspecified asthma severity (Primary Dx) Mild intermittent as thma, unspecified whether complicated (Primary Dx) Start: 2023 Telephone encounter Awilda elias MD Work Phone: [address] [place] [address] Comment on above: Referral Request Start: 03-29-2023 Telephone encounter Genia morales PT Work Phone: [facility] Outpatient Physical Therapy Comment on above: Appointment Start: 03-28-2023 End: 03-28-2023 ambulatory AWILDA GARCIA Facility:[facility] Start: 03-28-2023 End: 03-28-2023 ambulatory Abimbola [facility] Outpatient Physical Therapy Comment on above: [...] 03-02-2023 ambulatory Genia Castañeda PT Work Phone: [facility] Physical Therapy Comment on above: Neck pain (Primary D x); Chronic left shoulder pain Start: 02-10-2023 End: 02-10-2023 Annotation/Addendum Shreya [place] ALEX Work Phone: [facility]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 Work Phone: Start: 01-31-2023 End: 04-02-2023 Comprehensive metabolic 2000 panel - Serum or Plasma [facility] Work Phone: Comment on above: Expected: 01/31/2023, Expires: 3 Start: 01-31-2023 End: 04-02-2023 Thyrotropin [Units/volume] in Serum or Plasma [facility] Work Phone: Comment on above: Expected: 01/31/2023, Expires: 3 Start: 01-31-2023 End: 04-02-2023 Urinalysis complete panel - Urine [facility] Work Phone: Comment on above: Expected: 01/31/2023, Expires: 3 Start: 10-21-2022 Patient Education [facility]; [facility] Work Phone: Start: 10-21-2022 Procedure Education Eprescribed prescriptions (G8553) [facility]; [facility] Work Phone: Start: 10-21-2022 Provider Instructions for Treatment Follow up in 3 months [facility]; [facility] Work Phone: Start: 10-02-2022 DEPRESSION ASSESSMENT DEPRESSION ASSESSMENT [facility] Start: 09-28-2022 Procedure Education Eprescribed prescriptions (G8553) [...] Work Phone: Start: 07-26-2022 Patient Education [facility]; [facility] Work Phone: Start: 07-26-2022 Provider Instructions for Treatment [facility]; [facility] Work Phone: Start: 07-13-2022 Procedure Education Eprescribed prescriptions (G8553) [facility]; [facility] Work Phone: Start: 07-13-2022 Provider Instructions for Treatment Follow up in 3 months [facility]; [facility] Work Phone: Start: 07-08-2022 [facility] Work Phone: Start: 07-04-2022 Procedure Education Eprescribed prescriptions (G8553) [facility]; [facility] Work Phone: Start: 06-22-2022 [facility] Work Phone: Start: 06-15-2022 Procedure Education Eprescribed prescriptions (G8553) [facility]; [facility] Work Phone: Start: 06-15-2022 Provider Instructions for Treatment Follow up in 4 months [facility]; [facility] Work Phone: Start: 06-10-2022 Basic metabolic panel calcium total METABOLIC PANEL, BASIC (78462) [facility]; [facility] Work Phone: Start: 06-10-2022 Natriuretic peptide BNTP (31063) [facility]; [facility] Work Phone: Start: 06-10-2022 Blood count complete auto&auto difrntl wbc CBC, PLATELETS & AUT DIFF (73519) [facility]; [facility] Work Phone: Start: 06-03-2022 [facility] Work Phone: Start: 06-02-2022 Influenza vaccination [facility] Start: 05-31-2022 Procedure Education Eprescribed prescriptions (G8553) [facility]; [facility] Work Phone: Start: 05-31-2022 Provider Instructions for Treatment Follow up in 4 weeks [facility]; [facility] Work Phone: Start: 05-31-2022 Lipid panel LIPID PANEL (50327) [facility]; [facility] Work Phone: Start: 05-27-2022 [facility] Work Phone: Start: 05-27-2022 Procedure Education Eprescribed prescriptions (G8553) [facility]; [facility] Work Phone: Start: 05-11-2022 Procedure Education Eprescribed prescriptions (G8553) [facility]; [facility] Work Phone: Start: 05-11-2022 Provider Instructions for Treatment Follow up in 2 weeks [facility]; [facility] Work Phone: Start: 03-08-2022 End: 05-08-2022 PSA/PROSTSPECAG SCRN [facility] Work Phone: Comment on above: Expected: 03/08/2022, Expires: 2 Start: 01-26-2022 Procedure Education Eprescribed prescriptions (G8553) [facility]; [facility] Work Phone: Start: 01-26-2022 Provider Instructions for Treatment [facility]; [facility] Work Phone: Start: 07-15-2021 COVID-19 VACCINE (3 - Booster for Pfizer series) COVID-19 VACCINE (3 - Booster for Pfizer series) [facility] Start: 04-09-2021 COVID-19 VACCINE (3 - Booster for Pfizer series) COVID-19 VACCINE (3 - Booster for Pfizer series) [facility] Start: 04-09-2021 COVID-19 VACCINE (3 - Pfizer series) COVID-19 VACCINE (3 - Pfizer series) [facility] Start: 03-17-2021 Procedure Education Eprescribed prescriptions (G8553) [...] 06-09-2020 TSH Qn TSH (THYROID STIMULATING HORMONE) (44899) [facility] Work Phone: Start: 06-09-2020 Assay of prostate specific antigen total PSA (PROSTATE SPECIFIC ANTIGEN) (V76.44) [facility] Work Phone: Start: 06-09-2020 Blood count complete auto&auto difrntl wbc CBC, PLATELETS & AUT DIFF (26957) [facility] Work Phone: Start: 06-09-2020 Comprehensive metabolic panel METABOLIC PANEL, COMPREHENSIVE (31844) [facility] Work Phone: Start: 06-09-2020 Assay of prostate specific antigen total PSA (PROSTATE SPECIFIC ANTIGEN) (V76.44) [facility] Work Phone: Start: 06-09-2020 Blood count complete auto&auto difrntl wbc CBC, Platelets & Auto Diff (90213) [facility] Work Phone: Start: 06-09-2020 Comprehensive metabolic panel Metabolic Panel, Comprehensive (25412) [facility] Work Phone: Start: 06-09-2020 Assay of thyroid stimulating hormone tsh TSH (31445) [facility]; [facility] Work Phone: Start: 06-09-2020 TSH Qn TSH (99955) [facility] Work Phone: Start: 06-09-2020 Urine albumin quantitative MICROALBUMIN: CREATININE RATIO (06924) AND (39683) [facility] Work Phone: Start: 06-09-2020 Culture bct isol&prsmptv id isolate ea urine URINE ARTURO CULTURE-IDENTIFICATN (35029) [facility] Work Phone: Start: 2018 PROSTATE CANCER SCREENING DISCUSSION PROSTATE CANCER SCREENING DISCUSSION [facility] Start: 2013 SHINGRIX VACCINE (1 of 2) SHINGRIX VACCINE (1 of 2) [facility] Start: 2008 COLOGUARD (FIT-DNA) COLOGUARD (FIT-DNA) [facility] Start: 2008 Colonoscopy COLONOSCOPY [facility] Start: 2008 COLORECTAL CANCER SCREENING COLORECTAL CANCER SCREENING [facility] Start: [address] COLONOGRAPHY [facility] Start: 2008 FECAL OCCULT BLOOD FECAL OCCULT BLOOD [facility] Start: 2008 Screening for malignant neoplasm of colon [facility] Start: 2008 SIGMOIDOSCOPY SIGMOIDOSCOPY [facility] Start: 1981 BP CONTROLLED (<130/80) BP CONTROLLED (<130/80) [facility] Start: 1981 Depression Screening Depression Screening [facility] Start: 1981 HEPATITIS C SCREENING HEPATITIS C SCREENING [facility] Start: 1981 Hepatitis C screening Hepatitis C Screening [facility] Start: 1981 HIV SCREENING HIV SCREENING [facility] Start: 1981 HIV screening HIV Screening [facility] Start: 1981 SPIROMETRY SPIROMETRY [facility] Start: 1975 Adult depression screening assessment DEPRESSION SCREENING [facility] Start: 1969 PNEUMOCOCCAL (1 - PCV) PNEUMOCOCCAL (1 - PCV) [facility] Start: 1969 Pneumococcal vaccination Pneumococcal Vaccine (1 - PCV) [facility] Bilirubin measuremen t, urine [facility] COLOGUARD COLOGUARD Lab Ro utine Screen for colon cancer Ordered: 03/08/2022 [facility] Work Phone: Comment on above: Ordered: 03/08/2022 COLOGUARD COLOGUARD Lab Ro utine Screen for colon cancer Ordered: 12/22/2023 [facility] Work Phone: Comment on above: Ordered: 12/22/2023 End: 02-01-2024 ECG COMPLETE ECG COMPLETE ECG Routine Other chest pain 1 Occurrences starting 01/31/2023 until 02/01/2024 [facility] Work Phone: Comment on above: 1 Occurrences starting 01/31/2023 until 02/01/2024 ECG COMPLETE ECG COMPLETE ECG 01/31/2023 2:31 PM EDT [facility] ECG COMPLETE [facility] Work Phone: Comment on above: Ordered: 07/18/2024 End: 04-14-2024 EGD DIAGNOSTIC EGD DIAGNOSTIC Endoscopy Routine Esophageal dysphagia Gastroesophageal reflux disease, unspecified whether esophagitis present Hiatal hernia 1 Occurrences starting 04/14/2023 until 04/14/2024 [facility] Work Phone: Comment on above: 1 Occurrences starting 04/14/2023 until 04/14/2024 EPIL EEG ROUTINE EPIL EEG ROUTIN E NEUROLOGY Routine Syncope, unspecified syncope type Convulsive syncope Ordered: 11/03/2023 [facility] Work Phone: Comment on above: Ordered: 11/03/2023 Hemoglobin [Presence ] in Urine [facility] End: 06-13-2024 LUNG DIFFUSION CAPACITY (DLCO) LUNG DIFFUSION CAPACITY (DLCO) PFT Routine Hypoxemia Restrictive pattern present on pulmonary function testing Atelectasis Shortness of breath 1 Occurrences starting 05/15/2023 until 06/13/2024 [facility] Work Phone: Comment on above: 1 Occurrences starting 05/15/2023 until 06/13/2024 End: 06-13-2024 LUNG VOLUMES LUNG VOLUMES PFT Routine Hypoxemia Restrictive pattern present on pulmonary function testing Atelectasis Shortness of breath 1 Occurrences starting 05/15/2023 until 06/13/2024 [facility] Work Phone: Comment on above: 1 Occurrences starting 05/15/2023 until 06/13/2024 Measurement of keton es in urine using dipstick [facility] Microscopic urinalysis [facility] Patient Education [facility] Work Phone: Patient referral [facility] Work Phone: pH of Urine [facility] PT PLAN OF CARE CERTIFICATION PT PLAN OF CARE CERTIFICATION Procedures Routine Neck pain Ordered: 01/05/2023 [facility] Work Phone: Comment on above: Ordered: 01/05/2023 PT PLAN OF CARE CERTIFICATION PT PLAN OF CARE CERTIFICATION Procedures Routine Neck pain Chronic left shoulder pain Ordered: 03/01/2023 [facility] Work Phone: Comment on above: Ordered: 03/01/2023 End: 01-19-2024 Radex spine cervical 4 or 5 views XR CERV OTHER 4V AP/LAT/OBL Radiology Routine Neck pain 1 Occurrences starting 12/20/2022 until 01/19/2024 [facility] Work Phone: Comment on above: 1 Occurrences starting 12/20/2022 until 01/19/2024 Radex spine cervical 4 or 5 views XR CERV OTHER 4V AP/LAT/OBL Radiology Routine Neck pain 12/20/2022 2:35 PM EDT [facility] Work Phone: Specific gravity of Urine [facility] End: 05-02-2024 SPIROMETRY - BASELINE AND POST DILATOR SPIROMETRY - BASELINE AND POST DILATOR PFT Routine Persistent asthma with status asthmaticus, unspecified asthma severity 1 Occurrences starting 04/03/2023 until 05/02/2024 [facility] Work Phone: Comment on above: 1 Occurrences starting 04/03/2023 until 05/02/2024 End: 06-13-2024 SPIROMETRY WITH DILATOR IF OBSTRUCTED SPIROMETRY WITH DILATOR IF OBSTRUCTED PFT Routine Hypoxemia Restrictive pattern present on pulmonary function testing Atelectasis Shortness of breath 1 Occurrences starting 05/15/2023 until 06/13/2024 [facility] Work Phone: Comment on above: 1 Occurrences starting 05/15/2023 until 06/13/2024 End: 09-26-2024 SPIROMETRY WITH DILATOR IF OBSTRUCTED SPIROMETRY WITH DILATOR IF OBSTRUCTED PFT Routine Shortness of breath 1 Occurrences starting 08/30/2023 until 09/26/2024 [facility] Work Phone: Comment on above: 1 Occurrences starting 08/30/2023 until 09/26/2024 SPIROMETRY WITH DILATOR IF OBSTRUCTED SPIROMETRY WITH DILATOR IF OBSTRUCTED PFT Routine Shortness of breath 11/06/2023 2:52 PM EST [facility] Work Phone: Urinalysis, blood, qualitative [facility] Urine culture [facility] Urine dipstick for glucose [facility] Urine dipstick for leukocyte esterase [facility] Urine dipstick for nitrite [facility] Urine dipstick for protein [facility] Urine examination [facility] Urine microscopy: epithelial cells [facility] Urine Microscopy: white cells [facility] Urobilinogen [Presence] in Urine [facility] US Carotid arteries [facility] Work Phone: [facility] [...] nternal Medicine; [facility] Work Phone: [facility] Work Phone: [facility] Work Phone: [facility]; [facility] Work Phone: [facility] Immunizations Immunization Date Immunization Notes Care Provider Brandon trinh 08-20-2024 COVID-19 vaccine, ag e 12+ yr (PFIZER-BIONTECH COMIRNATY) Awilad Garcia MD Work Phone: [facility] 08-20-2024 influenza, seasonal, injectable Awilda Garcia MD Work Phone: [facility] 08-20-2024 influenza virus vacc ine, unspecified formulation Awilda Garcia MD Work Phone: [facility] 08-07-2023 pneumococcal (PCV20) vaccine, 20 valent (PREVNAR 20) Awilda Garcia MD Work Phone: [facility] 06-23-2023 influenza, injectabl e, quadrivalent, contains preservative Awilda Garcia MD Work Phone: [facility] 06-23-2023 influenza virus vacc ine, unspecified formulation Awilda Garcia MD Work Phone: [facility] 02-12-2021 COVID-19 vaccine, ag e 12+ yr (PFIZER-BIONTECH - PURPLE TOP) Awilda Garcia MD Work Phone: [facility] 01-22-2021 COVID-19 vaccine, ag e 12+ yr (PFIZER-BIONTECH - PURPLE TOP) Awilda Garcia MD Work Phone: [facility] 06-12-2018 tetanus toxoid, redu nunu diphtheria toxoid, and acellular pertussis vaccine, adsorbed [facility] Payers Date Payer Category Payer Self-pay [id number] 2019 Medicaid [id number] 2019 Medicaid [id number] 2018 Medicare (Managed Care) AMANDA EMERSON HMO [id number] 2018 Unknown 2018 Unknown AMANDA GARCIA CROS S AND BLUE SHIELD ANTHMONISHA MEDIBLUE O [id number] 2018-Present [phone] [id number] [place] [id number] [facility] [id number] 2018 Medicare [id number] 1965 Unknown [id number] Medicare [id number] Medicare [id number] Unknown [id number] Unknown [id number] Unknown [id number] Unknown [id number] Unknown [id number] Unknown [id number] Social History Date Type Detail Facility Alcohol Use: Alcohol Use: [facility] Work Phone: Tobacco Use: Tobacco Use: [facility] Work Phone: Alcohol Use: Alcohol Use: [facility] Work Phone: Tobacco Use: Tobacco Use: [facility] Work Phone: Start: 01-28-2022 End: 09-23-2023 Tobacco smoking status OKIS Unknown if ever smoked [facility] Start: 10-31-2019 Alone [facility] Start: 1965 Sex Assigned At Male [facility] Start: 04-16-2015 End: 06-21-2025 Tobacco smoking status NHIS Never smoked tobacco [facility] Work Phone: Start: 04-16-2015 End: 12-20-2022 Tobacco use and exposure Smokeless tobacco non-user [facility] Work Phone: Start: 03-08-2022 End: 10-18-2024 Alcohol intake Lifetime non-drinker (finding) [facility] Start: 03-20-2021 History SDOH Alcohol Frequency 1 [facility] Start: 1965 Sex Assigned At Not on file C [facility] Start: 02-26-2022 End: 03-08-2022 Exposure to SARS-CoV-2 (event) Not sure [facility] Start: 04-10-2023 End: 05-08-2025 History of Social function [facility] Work Phone: Start: 04-10-2023 End: 05-08-2025 Tobacco use panel [facility] Work Phone: Start: 09-02-2012 National Score (1-100), lower number is lower risk 65 [facility] Work Phone: Goals Date Patient Goal Desired Activity /State Personal health goal Functional Status Date Assessment Result Facility 04-16-2015 Are you deaf, or do you have serious difficulty hearing No 04/16/2015 6:24 PM EDT Mishel Vega MA No [facility] 04-16-2015 Are you blind, or do you have serious difficulty seeing, even when wearing glasses No 04/16/2015 6:24 PM EDT Mishel Vega MA No [facility] 04-16-2015 Do you have serious difficulty walking or climbing stairs No 04/16/2015 6:24 PM EDT Mishel Vega MA No [facility] 04-16-2015 Do you have difficul ty dressing or bathing No 04/16/2015 6:24 PM EDT Mishel Vega MA No [facility] 04-16-2015 Because of a physica l, mental, or emotional condition, do you have difficulty doing errands alone such as visiting a physician's office or shopping No 04/16/2015 6:24 PM EDT Mishel Vega MA No [facility] Mental Status Date Assessment Result Facility 06-21-2025 Cognitive function Voice/Name [facility] Work Phone: 04-14-2025 Cognitive function Voice/Name [facility] Work Phone: 03-26-2025 Cognitive function Voice/Name [facility] Work Phone: 09-23-2023 Cognitive function Voice/Name [facility] Work Phone: 06-16-2023 Cognitive function Voice/Name [facility] Work Phone: 02-08-2023 Cognitive function Level Of Cons ciousness Awake;Alert;Appropriate [facility] Work Phone: 07-08-2022 Cognitive function Level Of Cons ciousness Awake;Alert;Appropriate;Fol lows Commands [facility] Work Phone: 06-22-2022 Cognitive function Voice/Name [facility] Work Phone: 06-03-2022 Cognitive function Awake;Alert;A ppropriate;Fol lows Commands [facility] Work Phone: 05-27-2022 Cognitive function Awake;Alert;A ppropriate;Fol lows Commands [facility] Work Phone: 01-28-2022 Cognitive function Level Of Cons ciousness Awake;Alert;Appropriate;Fol lows Commands [facility] Work Phone: 12-17-2021 Cognitive function Level Of Cons ciousness Awake;Alert;Appropriate;Fol lows Commands [facility] Work Phone: 04-16-2015 Because of a physica l, mental, or emotional condition, do you have serious difficulty concentrating, remembering, or making decisions No 04/16/2015 6:24 PM EDT Mishel Vega MA No [facility] Clinical Notes 03-08-2022 to 07-15-2025 Note Date & Type Note Facility 07-15-2025 Note HNO ID: [id number] Author: ELHAM PERAZA RT(R) Service: ? Author Type: Technologist Type: Progress Notes Filed: 07/15/2025 13:22 Note Text: Radiology Service Progress Note PATIENT NAME: Cash Michel DATE OF SERVICE: July 15, 2025 TIME: 1:21 PM PATIENT IDENTITY VERIFICATION COMPLETED USING TWO (2) IDENTIFIERS: Name and Date of confirmed by patient verbally. FALL SCREENING: Has the patient had 2 falls in the last year or 1 fall with injury or currently using an Ambulatory Assistive Device (Walker, Cane, Wheelchair, Crutches, etc.)? No PATIENT GENDER DATA: Assigned male at PATIENT RELEVANT IMPLANT DATA REVIEWED: Not Applicable PATIENT PRESENTS WITH AN IMPLANTABLE OR ATTACHED CORK PAINTER AND GRADER: No RADIOLOGY DEPARTMENT: General X-ray: Exam(s) Completed: GI/ Procedure(s): Esophogram with barium contrast PERIPHERAL IV DATA: Not applicable SIGNED BY: RT Dwaine(R) July 15, 2025 1:21 PM [facility] 07-14-2025 Note HNO ID: [id number] Author: YANELY MAHONEY RPFT Service: ? Author Type: Respiratory Therapist Type: Procedures Filed: 07/14/2025 10:30 Note Text: Attestation signed by Mike Smith MD at 07/14/2025 3:14 PM The patient completed the six minute walk test with No stops. . The patient required Room Air to complete the test. The distance the patient walked in six minutes is within the predicted normal range. This is the first time patient takes the six minute walk test. The patient perceived their dyspnea during the six minute walk test to be 2-Slight on the modified Oliva scale. The patient perceived their fatigue during the six minute walk test to be 7-Very severe on the modified Oliva scale. I have reviewed the findings and made appropriate revisions as needed. Mike Smith MD July 14, 2025 3:14 PM RESPIRATORY THERAPY SIX MINUTE WALK TEST OXIMETRY REPORT Six Minute Walk Test for This Encounter Oxygen Device Liters FIO2 SpO2% HR Activity Feet Speed (MPH) R/A 96 87 Resting R/A 97 95 Six Minute Walk 335 0.6 R/A 98 85 Recovery General Information Height Weight Pulse Oximetry Site Pre Blood Pressure Post Recovery Blood Pressure -- 81.6 kg (180 lb) Forehead 122/83 135/93 _ Distance Walked (meters) Distance Walked (feet) Male Predicted Walk Distance (feet) Male Lower Limit of Normal (feet) Male % Predicted Total Duration Of The Stops (seconds) 102.11 335 -- -- -- -- _ Lowest SpO2 During 6 Minute Walk Pre-Oliva Dyspnea Rating Pre-Oliva Fatigue Rating Post Oliva Dyspnea Rating Post Oliva Fatigue Rating Walking Assistance/O2 Supply Carrier 96 % 1 7 2 7 Wheeled Walker Six Minute Walk Trend (Previous Encounters) None _ Comments: Patient unsteady on his feet. Tech had patient walk with a rolling walker for stability. SIGNATURE: CAT Ortiz PATIENT NAME: Cash Michel DATE: July 14, 2025 TIME: 10:30 AM 6MINWALKTEST [facility] 06-24-2025 Note HNO ID: [id number] Author: ERIN GONG APRN.[employer] Service: ? Author Type: Nurse Practitioner Type: Progress Notes Filed: 06/24/2025 15:36 Note Text: Subjective Cash Michel is a 60 year old male. HPI Patient here for ED follow up. He developed sudden chest pain on 06/21, felt like he was hit with a baseball in his chest. He went to [facility]. Cardiac enzymes were normal. He had a CTA chest which showed a new 6 mm lung nodule and stable but large complex hiatal hernia. He had a left heart cath in 10/2024 that was normal for chest pain. He states his hiatal hernia was evaluated by a surgeon in [place] who feels its too large for him to treat at a small hospital. He has never smoked. Review of Systems All other systems reviewed and are negative. Past Medical History: PAST MEDICAL HISTORY Diagnosis Date Asthma (HCC) [...] Kidney Disease Mother Heart disease Father 83 DC at age 83 Hypertension Father Parkinson?s Disease Brother Social History: SOCIAL HISTORY[1] Current Medications: Encounter Medications[2] Allergies: ALLERGIES No Known Allergies Vitals: BP 122/84 Pulse 93 Temp 98.7 Ht 5' 8 (1.73m) Wt 180 lb 5.4 oz (81.8kg) SpO2 98% BMI 27.43 kg/(m2). Objective There were no vitals taken for this visit. Physical Exam HENT: Head: Normocephalic and atraumatic. Cardiovascular: Rate and Rhythm: Normal rate and regular rhythm. Heart sounds: Normal heart sounds. Pulmonary: Effort: Pulmonary effort is normal. Breath sounds: Normal breath sounds. Musculoskeletal: Cervical back: Normal range of motion. Skin: General: Skin is warm and dry. Neurological: Mental Status: He is alert and oriented to person, place, and time. Psychiatric: Judgment: Judgment normal. ASSESSMENT/PLAN: 1. Chest pain, unspecified type - ICD9: 786.50, ICD10: R07.9 (primary diagnosis) Cardiac enzymes negative. Left heart cath done in October 03/2025 showed no significant CAD. Patient advised by ED to see surgeon for his large complex hiatal hernia. Referral placed to thoracic surgery. - CONSULT TO CARDIOTHORACIC SURGERY 2. Lung nodules - ICD9: 793.19, ICD10: R91.8 6 mm lung nodule noted on recent CT. Denies history of smoking. Repeat CT ordered to be done in 6 months. - CT CHEST WO IVCON 3. Hiatal hernia - ICD9: 553.3, ICD10: K44.9 Large complex hiatal hernia noted again on imaging. Patient continues to have chest pain and shortness of breath. Referred to thoracic surgery. - CONSULT TO CARDIOTHORACIC SURGERY Erin Gong APRN.[employer] [1] Social History Tobacco Use Smoking status: Never Smokeless tobacco: Never Vaping Use Vaping status: Never Used Substance Use Topics Alcohol use: Never Drug use: Never [2] lisinopril-hydroCHLOROthiazide (ZESTORETIC) 20-12.5 mg per tablet, Take 1 tablet by mouth once daily., Disp: 30 tablet, Rfl: 5 sucralfate (CARAFATE) 1 gram tablet, Take 1 tablet by mouth every 12 hours., Disp: , Rfl: famotidine (PEPCID) 40 mg tablet, Take 40 mg by mouth daily at bedtime., Disp: , Rfl: amLODIPine (NORVASC) 10 mg tablet, Take 1 tablet by mouth once daily., Disp: 90 tablet, Rfl: 3 aspirin, enteric coated (ASPIRIN, ENTERIC COATED) 81 mg EC tablet, Take 1 tablet by mouth once daily., Disp: 90 tablet, Rfl: 3 rosuvastatin (CRESTOR) 20 mg tablet, Take 1 tablet by mouth daily at bedtime., Disp: 90 tablet, Rfl: 3 peg 3350-Electrolytes (GOLYTELY) 236-22.74-6.74 -5.86 gram suspension, Refer to printed prep instructions from your provider. (Patient not taking: Reported on 05/08/2025), Disp: 4000 mL, Rfl: 0 metoprolol succinate ER (TOPROL XL) 25 mg 24 hr tablet, Take 0.5 tablets by mouth once daily. (Patient not taking: Reported on 05/08/2025), Disp: 15 tablet, Rfl: 0 albuterol HFA (VENTOLIN HFA) 90 mcg/actuation inhaler, Inhale 2 puffs as instructed every 4 hours as needed for wheezing/shortness of breath. (Patient not taking: Reported on 05/08/2025), Disp: 1 each, Rfl: 1 triamcinolone acetonide (KENALOG) 0.5 % cream, Apply 1 appli (more content not included)... [facility] 06-22-2025 Discharge summary [facility] 06-21-2025 Radiology Diagnostic study note [facility] Imaging Services [address] [place] [address] [id number] CTA Chest W/WO Contrast MR#: [id number] Acct: [id number] Name: CASH MICHEL Rep #: [id number] : 1965 M 60 From: Gris Lofton MD PCP: OUT OF TOWN DOCTOR Status: REG ER Study:CTA Chest W/WO Contrast Date of Exam: 06/21/25 Exam# [id number] Ordering Dr: Inocencio Mccullough MD ADDENDUM by Dr. Tarik Pedro MD on 06/21/25 at 2357 Additional comparison is made to CT chest dated 11/11/2024. Please note that the 6 mm pulmonary nodule in the left lower lobe is not seen previously. Recommend Fleischner society follow-up guidelines at six-months. Large complex hiatal hernia appears grossly unchanged, accounting for differences in positioning and technique. Reading Location: [facility] 06/21/25 2357 Date cc: Dr. Calixto Mccullough MD ~* Signed PROCEDURE: CTA CHEST W/WO CONTRAST 06/21/2025 REASON FOR EXAM: CHEST PAIN THROUGH THE BACK ELEVATED D-DIMER R/ TECHNIQUE: Procedure Code: CTCTACHWW Modality: CT Procedure: CTA CHEST W/WO CONTRAST Multiplanar Sagittal and Coronal images were obtained. CONTRAST: Please see CT VOLUME: Please see CT mL One or more dose reduction techniques were used (e.g., Automated exposure control, adjustment of the mA and/or kV according to patient size, use of iterative reconstruction technique). RADIATION DOSE SUMMARY: CTDlvol: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 pneumonitis. No evidence of pulmonary edema. No pleural effusion or pneumothorax is seen. The cardiomediastinal silhouette is stable, without evidence of cardiomegaly. Reading Location: [facility] [address] 03/26/25 09:17 IMPRESSION: CHRONIC CHANGES. NO ACUTE FINDINGS. Reading Location: [facility] Discharge Plan Triage Chief Complaint: Dizziness ED [...] worsening symptoms or other concerns. Print Language: Martiniquais Disposition Disposition: Home, Self Care What to do if you have Problems For any increased pain, shortness of breath, bleeding, nausea or vomiting, chestpain, or any unexpected problems, contact your Primary Care Provider. Call [facility] ([phone]) or report to the closest Emergency Room. Call 911 if necessary. 03/26/25 1411 <Electronically signed by Gavino Jeffery DO> Cosigner Signature (if applicable): CC: [employer] Shreya Cat ~ Signed [facility] Work Phone: [phone] Radiology Diagnostic study note [facility] Imaging Services [address], [place] [id number] Brain/Head without Contrast MR#: [id number] Acct: [id number] Name: CASH MICHEL Rep #: [id number] : 1965 M 59 From: To Kramer MD PCP: ROBINA Anglin Status: REG E R Study:Brain/Head without Contrast Date of Exa m: 03/26/25 Exam# [id number] Ordering Dr: Mariana Jeffery DO PROCEDURE: BRAIN/HEAD [...] CHRONIC CHANGES. NO ACUTE FINDINGS. 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 Gavino Jeffery DO ~ Moth Proofer: Signed [facility]06-25-2025 Radiology Diagnostic study note [facility] Imaging Services [address] [place] [address] Chest PA and Lateral MR#: [id number] Acct: [id number] Name: CASH MICHEL Rep #: [id number] : 1965 M 59 From: Faustino Mendoza MD PCP: Shreya Cat, [employer]ADER-C Status: REG E R Study:Chest PA and Lateral Date of Exam: 03/26/25 Exam# [id number] Ordering Dr: Mariana Jeffery DO PROCEDURE: CHEST PA AND LATERAL 03/26/2025 REASON FOR EXAM: CHEST PAIN TECHNIQUE: CHEST PA AND LATERAL COMPARISON: Chest x-ray 02/25/2024. RAD/Chest PA and Lateral IMPRESSION: Examination limited by AP portable technique, hypoinflation, and significant patient motion on bothviews. A prominent hiatal hernia is seen. Areas of bibasilar atelectasis are noted, hdiyf-pfpyjrw-dytx-left; cannot entirely exclude the presence of pneumonitis. No evidence of pulmonary edema. No pleural effusion or pneumothorax is seen. The cardiomediastinal silhouette is stable, without evidence of cardiomegaly. Reading Location: [place] [address] CC: ROBINA Cat; Dr. Gavino Jeffery, DO ~ Moth Proofer: Signed [facility]06-23-2025 Telephone encounter Note* Telephone Encounter - Usman Gomez - 03/24/2025 2:16 PM EDT Spot to pt, he is scheduled for April 22 [facility]06-23-2025 Miscellaneous Notes* Telephone Encounter - Usman Gomez [...] 1 tablet by mouth once daily. Noelle Meija March 21, 2025 1:30 PM documented in this encounterLouis Stokes Cleveland [facility] Center06-23-2025 Telephone encounter Note * Telephone Encounter - Prashanth Luna APRN.CNP - 03/24/2025 9:07 AM EDT Will send 30-day supply, however, patient was a no-show to last appointment and is due for visit. Please call to schedule with Dr. Garcia. Prashanth Luna APRN.CNP [facility]06-20-2025 Telephone encounter Note* Telephone Encounter - Noelle [...] Noelle Mejia March 21, 2025 1:30 PM [facility]06-20-2025 Telephone encounter Note* Telephone Encounter - Noelle [...] Noelle Mejia March 21, 2025 1:29 PM [facility]06-20-2025 Miscellaneous Notes* Telephone Encounter - Noelle Mejia [...] 21, 2025 1:29 PM documented in this encounterLouis Stokes [facility] Center06-02-2025 Telephone encounter Note * Telephone Encounter - Chrissy Brunson - 03/03/2025 4:28 PM EDT Patient calling to check the status of this. Patient stated he loss his. Please advise. [facility]06-02-2025 Miscellaneous Notes* Telephone Encounter - Chrissy Brunson [...] 03, 2025 2:02 PM documented in this encounterLouis Stokes [facility] Center06-02-2025 Telephone encounter Note * Telephone Encounter - [...] Misty Rivas March 03, 2025 2:02 PM [facility]03-17-2025 NoteHNO ID: [id number] Author: GEORGE NORIEGA MD Service: ? Author Type: Physician Type: Progress Notes Filed: 12/16/2024 09:39 Note Text: Heart, Vascular and Thoracic [place] [facility] Department of Cardiovascular Medicine Patient is scheduled for cardiac cath on 10/22/2024, wishes not to be seen today [facility]03-05-2025 Telephone encounter Note* Telephone Encounter - Kate Márquez RN - 12/04/2024 4:04 PM EST Attempted to call pt. Phone went to [employer] however wouldn't accept a voice message. Will send suzettehart. Hari 12/03/24 IMPRESSION: Mr. Michel is a 59 year old male who initially presented with typical chest pain most likely stable coronary artery disease in setting of hypertension, which had improved with control of his hypertension on 2 antianginals, but now with recurrence despite antianginal therapy. Cardiac catheterization did not reveal any significant CAD. Coronary artery disease of [place] artery of [place] heart with stable angina pectoris (hcc) (primaryencounter diagnosis) Right carotid bruit Disturbance in affect Carotid artery stenosis PLAN AND RECOMMENDATIONS: - follow with PCP - Continue metoprolol succinate 12.5 mg PO daily goal HR < 70. Monitor for bradycardia, lightheadedness, dizziness, hypotension, hyperglycemia - Continue with amlodipine 10 mg p.o. daily as second antianginal and goal blood pressure less enxs969/80 - Continue with hydrochlorothiazide/lisinopril combo pill as prescribed goal blood pressure less than 130/80 - Continue aspirin 81 mg p.o. daily and high intensity statin. Patient instructed to monitor for myalgias, right upper quadrant pain, urinary discoloration and bleeding diatheses [facility]03-05-2025 Miscellaneous Notes* Telephone Encounter - Kate Márquez RN - 12/04/2024 4:04 PM EST Attempted to call pt. Phone went to voicemail however wouldn't accept a voice message. Will [...] any significant CAD. Coronary artery disease of [place] artery of [place] heart with stable angina pectoris (hcc) (primaryencounter diagnosis) Right carotid bruit Disturbance in affect Carotid artery stenosis PLAN AND RECOMMENDATIONS: - follow with PCP - Continue metoprolol succinate 12.5 mg PO daily goal HR < 70. Monitor for bradycardia, lightheadedness, dizziness, hypotension, hyperglycemia - Continue with amlodipine 10 mg p.o. daily as second antianginal and goal blood pressure less kzig984/80 - Continue with hydrochlorothiazide/lisinopril combo pill as [...] calling: self Call patient at: on cell [phone] (home) [phone] (cell) Was an appointment scheduled: No Closing statement: Results or non-symptom based questions: Thank you for calling [facility], your call will be returned within the next business day. Daamri Cheney documented in this encounterLouis Stokes Cleveland [facility] Center03-05-2025 Telephone encounter Note * Telephone Encounter - [...] calling: self Call patient at: on cell [phone] (home) [phone] (cell) Was an appointment scheduled: No Closing statement: Results or non-symptom based questions: Thank you for calling [facility], your call will be returned within the next business day. Damari Cheney [facility]03-04-2025 History of Present illness Narrative* George Noriega MD - 12/03/2024 3:20 PM EST Images from the original note were not included. Heart, Vascular and Thoracic [place] [facility] Department of Cardiovascular Medicine SECTION OF INTERVENTIONAL CARDIOLOGY OUTPATIENT VISIT DATE 12/03/2024 OUTPATIENT VISIT TYPE Established PRIMARY CARE PHYSICIAN: [place] [address] REFERRING PHYSICIAN: Awilda Espinoza [facility] [address] CHIEF COMPLAINT: Patient presents with: Consult HISTORY [...] vomiting. He also notes that he has Hartley class III intermittent claudication worse in the [...] any significant CAD. Coronary artery disease of [place] artery of [place] heart with stable angina pectoris (hcc) (primaryencounter diagnosis) Right carotid bruit Disturbance in affect Carotid artery stenosis PLAN AND RECOMMENDATIONS: - follow with PCP - Continue metoprolol succinate 12.5 mg PO daily goal HR < 70. Monitor for bradycardia, lightheadedness, dizziness, hypotension, hyperglycemia - Continue with amlodipine 10 mg p.o. daily as second antianginal and goal blood pressure less oghn168/80 - Continue with hydrochlorothiazide/lisinopril combo pill as [...] of Cardiovascular Medicine Heart, Vascular and Thoracic [place] [facility] Office Office Pager [phone] This note was partially generated using [employer] voice recognition system, and there may be some incorrect words, spellings, and punctuation that were not noted in checking the note before saving documented in this encounterLouis Stokes Cleveland Va [facility] Center03-04-2025 NoteHNO ID: [id number] Author: GEORGE NORIEGA MD Service: ? Author Type: Physician Type: Progress Notes Filed: 12/03/2024 15:33 Note Text: Heart, Vascular and Thoracic [place] [facility] Department of Cardiovascular Medicine SECTION OF INTERVENTIONAL CARDIOLOGY OUTPATIENT VISIT DATE 12/03/2024 OUTPATIENT VISIT TYPE Established PRIMARY CARE PHYSICIAN: Awilda Garcia [address] [place] [address] REFERRING PHYSICIAN: Awilda Musa34 [facility] [address] CHIEF COMPLAINT: Patient presents with: Consult HISTORY [...] vomiting. He also notes that he has Hartley class III intermittent claudication worse in the [...] twice daily.Disp: Rfl: amLODIPine (NORVASC) 10 mg bazjpz55 mg.Disp: Rfl: omeprazole (PRILOSEC) 20 mg capsuleTake [...] Lungs: Clear to au (more content not included)...[facility] 11-26-2024 NotePatient Outreach (INTMMN) KRISSYCASH WEAVER ([id number]) 1965 M [facility] Date Time Provider Department 11/26/24 AWILDA GARCIA INTMMN During your visit today, we recorded the following information about you: Allergies As of Date: 11/26/2024 (No Known Allergies) Date Reviewed: 10/22/2024 Reviewed by: Serina Garcia, IVAN - Fully Assessed Primary Visit Diagnosis:Screening for prostate cancer [Z12.5] Other Visit Diagnosis:HLD (hyperlipidemia) [E78.5] Order(s):LIPID PANEL BASIC [SQLIPB] Order #: [id number] FUTURE PSA/PROSTATE SPECIFIC ANTIGEN SCREENING [SQPSAS1] Order #: [id number] FUTURE Prescriptions as of 11/26/2024 - amLODIPine [...] 07/13/2022 Neck pain [M54.2] 01/11/2023 Atherosclerosis of [place] arteries of extremity*02/15/2023 BMI 26.0-26.9,adult [Z68.26] 04/07/2023 [...] pollen [J30.1] 08/07/2023 Coronary artery disease of [place] artery of mike*10/22/2024 Encounter Status:Closed by PRASHANTH LUNA on 11/26/24[facility] 11-20-2024 NoteHNO ID: [id number] Author: ?, ?, ? Service: ? Author Type: ? Type: Progress Notes Filed: 11/20/2024 15:02 Note Text: [facility] [facility] NoteHNO ID: [id number] Author: ?, ?, ? Service: ? Author Type: ? Type: Progress Notes Filed: 11/18/2024 14:08 Note Text: Tried to call 2nd attempt no answer no VM set up.[facility] 11-15-2024 NoteHNO ID: [id number] Author: ?, ?, ? Service: ? Author Type: ? Type: Progress Notes Filed: 11/15/2024 15:31 Note Text: Placed call to patient no answer no vm set up. Will send My Chart. The last time they logged on to My Chart was in September.[facility]02-12-2025 NoteHNO ID: [id number] Author: JOVANA SEXTON RN Service: ? Author [...] seen in the Emergency Department (ED) Location: [place] Date: 11/11/24 Reason for ED Visit: Injured [...] provided with appropriate counseling: Yes Based on burnt lime drawer, the following disposition is advised: No symptoms or symptoms present, not severe. Routed to: No Action Needed MARISOL Education Provided this Outreach: No Jovana Sexton RN November 13, 2024 11:17 [facility]02-12-2025 History of Present illness Narrative* Jovana Sexton [...] seen in the Emergency Department (ED) Location: [place] Date: 11/11/24 Reason for ED Visit: Injured [...] provided with appropriate counseling: Yes Based on burnt lime drawer, the following disposition is advised: No symptoms or symptoms present, not severe. Routed to: No Action Needed MARISOL Education Provided this Outreach: No Jovana Sexton RN November 13, 2024 11:17 AM documented in this encounterLouis Stokes Cleveland [facility]02-12-2025 NotePatient Outreach (AMBCMG) CASH MICHEL ([id number]) 1965 M [facility] Date Time Provider Department 11/13/24 JOVANA SEXTON During your visit today, we recorded the following information about you: Jovnaa Sexton RN 11/13/2024 11:30 AM Signed ED [...] seen in the Emergency Department (ED) Location: [place] Date: 11/11/24 Reason for ED Visit: Injured [...] provided with appropriate counseling: Yes Based on burnt lime drawer, the following disposition is advised: No symptoms [...] My Chart was in September. Mel Wu Le 11/18/2024 2:08 PM Signed Tried to call 2nd attempt no answer no VM set up. Clau Wilks 11/20/2024 3:02 PM Signed Appointment 12/13/[address] Garcia Allergies As of Date: 11/13/2024 (No Known Allergies) Date Reviewed: 10/22/2024 Reviewed by: Serina Garcia, RN - Fully Assessed Prescriptions as of [...] 07/13/2022 Neck pain [M54.2] 01/11/2023 Atherosclerosis of [place] arteries of extremity*02/15/2023 BMI 26.0-26.9,adult [Z68.26] 04/07/2023 [...] pollen [J30.1] 08/07/2023 Coronary artery disease of [place] artery of mike*10/22/2024 (more content not included)...[facility]12-18-2024 Telephone encounter Note* Telephone Encounter - Sincere Jacobo/18/2024 2:59 PM EST Received notification that patient cancelled his originally scheduled heart catheterization at [facility] with Dr. George Noriega. Called patient, who shared he would like to reschedule into October. Opted for 10/22/2024 date. He would like to keep the existing 10/18/[address] Noriega to review any questions that arise. Will have lab work drawn after the appointment at [facility]. Procedure instructions submitted via Workdayt for patient's review. [facility] Work Phone: [phone] 140-633612-18-2024 Miscellaneous Notes* Telephone Encounter - Sincere Jacobo - 09/18/2024 2:59 PM EST Received notification that patient cancelled his originally scheduled heart catheterization at [facility] with Dr. George Noriega. Called patient, who shared he would like to reschedule into October. Opted for 10/22/2024 date. He would like to keep the existing 10/18/[address] Noriega to review any questions that arise. Will have lab work drawn after the appointment at [facility]. Procedure instructions submitted via CareParent for patient's review. documented in this encounterLouis Stokes Cleveland Va Medical Center11-20-2024 Telephone encounter Note * Telephone Encounter - Diamond Mendiola - 08/21/2024 11:07 AM EST error [facility]11-20-2024 Miscellaneous Notes* Telephone Encounter - Diamond Mendiola - 08/21/2024 11:07 AM EST error documented in this encounterLouis Stokes Cleveland Va Medical Center11-19-2024 NoteHNO ID: [id number] Author: AWILDA GARCIA MD Service: ? Author Type: Physician Type: Progress Notes Filed: 08/20/2024 14:38 Note Text: This note was created using Aquacueriter. Subjective Cash Michel is a 59 year [...] SURGICAL HISTORY Procedure Later[facility] 04/25/2023 Gastric antral body type mucosa with mild chronic inactive gastritis, 5cm hiatal hernia RIGHT HEART CATHERIZATION 11/07/2003 Family History: FAMILY HISTORY Problem Relation Age of Onset Diabetes Mother Heart disease Mother other (CHF) Mother Hypertension Mother Kidney Disease Mother Heart disease Father 83 DC at age 83 Hypertension Father Parkinson?s Disease [...] distension. Palpations: Abdomen is (more content not included)...[facility] 08-20-2024 History of Present illness Narrative* Awilda Garcia MD - 08/20/2024 2:37 PM EST This note was created using Aquacueriter. Subjective Cash Michel is a 59 year [...] SURGICAL HISTORY Procedure Laterality Date EGD W/O [facility] SPEC VARICIES INJ 04/25/2023 Gastric antral body type mucosa with mild chronic inactive gastritis, 5cm hiatal hernia RIGHT HEART CATHERIZATION 11/07/2003 Family History: FAMILY HISTORY Problem Relation Age of Onset Diabetes Mother Heart disease Mother other (CHF) Mother Hypertension Mother Kidney Disease Mother Heart disease Father 83 DC at age 83 Hypertension Father Parkinson s [...] 6MO-64YR, TRIVALENT (AFLURIA, FLULAVAL, FLUVIRIN, FLUZONE) - [employer]) COVID-19 VACCINE AGE 12+ YR (COMIRNATY) 3. Hyperlipidemia, unspecified hyperlipidemia type - ICD9: 272.4, ICD10: E78.5 - ASPIRIN 81 MG TABLET,DELAYED RELEASE - ROSUVASTATIN 20 MG TABLET 4. 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) - ICD9: 414.01, 413.9, ICD10: I25.118 - METOPROLOL SUCCINATE ER 25 MG TABLET,EXTENDED RELEASE 24 HR Awilda Garcia MD documented in this encounterLouis Stokes Cleveland Va Medical Center10-21-2024 Telephone encounter Note * Telephone Encounter - Sincere Jacobo - 07/22/2024 3:06 PM EDT A request has been received from [facility] patient, obtain his voice mail, left a message with candy maker's direct phone number and to also refer to CareParent regarding dates of availability. [facility] Work Phone: [phone]) 587-859910-21-2024 Miscellaneous Notes* Telephone Encounter - Sincere Jacobo - 07/22/2024 3:06 PM EDT A request has been received from Dr. George [facility]iega [facility] Called patient, obtain his voice mail, left a message with candy maker's direct phone number and to also refer to CareParent regarding dates of availability. documented in this encounterLouis Stokes Cleveland Va Medical Center10-17-2024 NoteHNO ID: [id number] Author: GEORGE NORIEGA MD Service: ? Author Type: Physician Type: Progress Notes Filed: 07/18/2024 16:18 Note Text: Heart, Vascular and Thoracic [place] [facility] Department of Cardiovascular Medicine SECTION OF INTERVENTIONAL CARDIOLOGY OUTPATIENT VISIT DATE 07/18/2024 OUTPATIENT VISIT TYPE Established PRIMARY CARE PHYSICIAN: Awilda Garcia [address] [place] [address] REFERRING PHYSICIAN: Awilda Musa34 [facility] [address] CHIEF COMPLAINT: Patient presents with: Consult HISTORY [...] vomiting. He also notes that he has Hartley class III intermittent claudication worse in the [...] twice daily.Disp: Rfl: amLODIPine (NORVASC) 10 mg [id number] mg.Disp: Rfl: omeprazole (PRILOSEC) 20 mg capsuleTake [...] S3, no S4, no (more content not included)...[facility]10-17-2024 History of Present illness Narrative* George Noriega MD - 07/18/2024 3:41 PM EDT Images from the original note were not included. Heart, Vascular and Thoracic [place] [facility] Department of Cardiovascular Medicine SECTION OF INTERVENTIONAL CARDIOLOGY OUTPATIENT VISIT DATE 07/18/2024 OUTPATIENT VISIT TYPE Established PRIMARY CARE PHYSICIAN: Awilda Garcia [address] [place], [place] [id number] REFERRING PHYSICIAN: Awilda Garcia [address] [place], [place] [id number] CHIEF COMPLAINT: Patient presents with: Consult HISTORY [...] vomiting. He also notes that he has Hartley class III intermittent claudication worse in the [...] define the anatomy. Coronary artery disease of [place] artery of [place] heart with stable angina pectoris (hcc) (primaryencounter diagnosis) Right carotid bruit Disturbance in affect Carotid artery stenosis PLAN AND RECOMMENDATIONS: - Cardiac catheterization, labs ordered - Continue metoprolol succinate 12.5 mg PO daily goal HR < 70. Monitor for bradycardia, lightheadedness, dizziness, hypotension, hyperglycemia - Continue with amlodipine 10 mg p.o. daily as second antianginal and goal blood pressure less ulcs670/80 - Continue with hydrochlorothiazide/lisinopril combo pill as [...] of Cardiovascular Medicine Heart, Vascular and Thoracic [place] [facility] Office Office Pager [phone] This note was partially generated using [employer] voice recognition system, and there may be some incorrect words, spellings, and punctuation that were not noted in checking the note before saving documented in this encounterLouis Stokes Cleveland Va Medical Center09-26-2024 Telephone encounter Note * Telephone Encounter - Liana Daly OCCA - 06/27/2024 4:[address] Shreya Cat's office asks if Dr Noriega is not going to refill this medication for patient, please advise if they should take over managing medication for patient. [phone]. OK to leave a detailed VM. Received [...] 01/31/2023 1.14 0.73 - 1.22 mg/dL Final [facility]09-26-2024 Miscellaneous Notes* Telephone Encounter - Liana Daly OCCA - 06/27/2024 4:[address] Shreya Cat's office asks if Dr Noriega is not going to refill this medication for patient, please advise if they should take over managing medication for patient. [phone]. OK to leave a detailed VM. Received [...] 1.22 mg/dL Final * Telephone Encounter - Barry Brinda - 06/27/2024 2:20 PM EDT Prescription Refill Information Dr Shreya Cat's office asks if Dr oNriega is not going to refill this medication for patient, please advise if they should take over managing medication for patient. [phone]. OK to leave a detailed VM. The [...] 27, 2024 2:23 PM documented in this encounterLouis Stokes Cleveland Va Medical Center09-26-2024 Telephone encounter Note * Telephone Encounter - Brinda Reddy - 06/27/2024 2:20 PM EDT Prescription Refill Information Dr Shreya Cat's office asks if Dr Noriega is not going to refill this medication for patient, please advise if they should take over managing medication for patient. [phone]. OK to leave a detailed VM. The [...] Brinda Reddy June 27, 2024 2:23 PM [facility]09-06-2024 Telephone encounter Note* Telephone Encounter - Liana [...] 01/31/2023 1.14 0.73 - 1.22 mg/dL Final [facility]09-06-2024 Miscellaneous Notes* Telephone Encounter - Liana Daly [...] - 1.22 mg/dL Final documented in this encounterLouis Stokes Cleveland Va Medical Center07-24-2024 Telephone encounter Note * Telephone Encounter - [...] Damari Cheney April 24, 2024 2:07 PM [facility]07-24-2024 Miscellaneous Notes* Telephone Encounter - Damari Cheney [...] 24, 2024 2:07 PM documented in this encounterLouis Stokes Cleveland Va Medical Center03-22-2024 History of Present illness Narrative* Awilda Garcia [...] SURGICAL HISTORY Procedure Laterality Date EGD W/O [facility] SPEC VARICIES INJ 04/25/2023 Gastric antral body type mucosa with mild chronic inactive gastritis, 5cm hiatal hernia RIGHT HEART CATHERIZATION 11/07/2003 Family History: FAMILY HISTORY Problem Relation Age of Onset Diabetes Mother Heart disease Mother other (CHF) Mother Hypertension Mother Kidney Disease Mother Heart disease Father 83 DC at age 83 Hypertension Father Parkinson s [...] injection (DEFINITY), , INTRAVENOUS, DIRECTED PRN, George Noreiga MD sodium chloride 0.9 % (flush) 10 [...] cancer - ICD9: V76.51, ICD10: Z12.11 - COLOGLEDY Garcia MD * Radha Box RN - [...] attempts). Repeat BPwas 137/84. documented in this encounterLouis Stokes Cleveland Va Medical Center02-07-2024 Miscellaneous Notes* Telephone Encounter - Comfort Tapia - 11/08/2023 10:48 AM EST Images from the original note were not included. Received external prior authorization approval for Dulera from [employer], dated 11/07/2023. Please allow time delay for documents to appear in Epic (Scanned Documents Tab). Images can take up to 24 hours to appear in Epic. documented in this encounterLouis Stokes Cleveland Va Medical Center02-06-2024 Miscellaneous Notes* Telephone Encounter - Comfort Tapia - 11/07/2023 12:59 PM EST Prior Authorization Documentation Prior authorization requested for the following medication: Medication: Dulera 200-5MCG/ACT Provider: Dr. Felipa Duffy Prior authorization submitted on 11/07/2023 Awaiting determination. documented in this encounterLouis Stokes Cleveland Va Medical Center02-05-2024 Instructions* Patient Instructions* Kee Mendoza MD - 11/06/2023 4:45 PM EST I recommend you be evaluated by Dr. Givens for management of vocal cord dysfunction. To make an appointment, please call [phone]. The number for the office desk is:[phone] Continue Omeprazole The following interventions are based [...] puffs twice a day. documented in this encounterLouis Stokes Cleveland Va Medical Center02-05-2024 History of Present illness Narrative* Weston Amezquita RRT - 11/06/2023 3:51 PM EST PULM FUNCTION SMARTBLOCK: Provider: Sabrina Rosado MD Assisting Tech: Yani Garay RRT Add'l Tech Assisting Tech 2: Jenny Anderson RRT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 [address] [facility] [address] Jonathan Stone MD Shoulder & Elbow Surgeon Department of Orthopaedic Surgery [facility] documented in this encounterLouis Stokes Cleveland [facility] Center04-06-2023 NoteHNO ID: [id number] Author: Genia Castañeda PT Service: ? Author [...] of Care: created on 01/05/23 through 03/06/23 [place] in home exercise program. Patient will decrease [...] Planned: 12 Planned Treatment Interventions: Therapeutic exercise (23620), Neuromuscular re-education (03799), Manual therapy (14215), Therapeutic activities (32142), Self-fci management (95483), Gait Training (38876) PLAN FOR NEXT VISIT: Take baseline vitals. [...] left shoulder and elbow pain. Medical History: [id number] been fluctuating-monitors at home, heart issues-may be [...] grossly 4+ to 5/5) (more content not included)...[facility] HospitalJrwqoopc79-55-2627 History of Present illness Narrative* Genia Castañeda, [...] of Care: created on 01/05/23 through 03/06/23 [place] in home exercise program. Patient will decrease [...] Planned: 12 Planned Treatment Interventions: Therapeutic exercise (28411), Neuromuscular re- education (00437), Manual therapy (88576), Therapeutic activities (64439), Self- fci management (65515), Gait Training (65243) PLAN FOR NEXT VISIT: Take baseline vitals. [...] left shoulder and elbow pain. Medical History: [id number] been fluctuating-monitors at home, heart issues-may be [...] Interventions: Therapeutic Exercise, Manual Therapy, Aquatic Therapy, Self-Halfway Management Evaluation Therapeutic Exercise: 1: *cervical retractions [...] was facilitated with verbal and visual cuing. Self-Halfway Management: 1: eval findings , HEP and [...] 40 Genia Castañeda PT documented in this encounterLouis Stokes [facility] Center03-21-2023 History of Present illness Narrative* RT Mike(R) - 12/20/2022 2:38 PM EDT Radiology Service [...] 20, 2022 2:38 PM documented in this encounterLouis Stokes Cleveland [facility] Center03-21-2023 History of Present illness Narrative* Awilda Garcia MD - 12/20/2022 2:04 PM EDT This note was created using Aquacueriter. Subjective Cash Michel is a 57 year [...] GASTROENTEROLOGY Awilda Garcia MD documented in this encounterLouis Stokes Cleveland [facility] Center03-21-2023 Instructions* Patient Instructions* Dorota Larkin MA - 12/20/2022 1:31 PM EDT [facility] FACTS Please visit our lab at least 3-5 days before your scheduled appointment to have your lab work drawn, if lab work is ordered. This will allow us the ability to review your lab work results with you during your scheduled visit. [facility]: Lab is open Monday - Monday from 6:30am to 5pm and open 8am -12pm on Saturdays. [facility]: Monday- 7:30am to 5:30pm. Fridays [...] medicine, or pediatrics at any of our [facility] locations and main campus. documented in this encounterLouis Stokes [facility] Center07-12-2022 History of Present illness Narrative* Yobany Thomason DC - 04/12/2022 12:52 PM EDT Patient did not show for 10 am appointment. Electronically Signed: Yobany Thomason DC April 12, 2022 12:52 PM documented in this encounterLouis Stokes Cleveland [facility] Center06-07-2022 History of Present illness Narrative* Awilda Garcia MD - 03/08/2022 2:41 PM EDT This note was created using Pergunter. Subjective Cash Michel is a 56 year [...] COLOGUARD Awilda Garcia MD documented in this encounterLouis Stokes Cleveland [facility] Center06-07-2022 Nurse Note* Evert Lauren MA - 03/08/2022 [...] (175 lb 6.4 oz) documented in this encounterLouis Stokes Cleveland Va Medical Center06-07-2022 Instructions* Patient Instructions* Evert Lauren MA - 03/08/2022 2:10 PM EDT [facility] FA[facility] Please visit our lab at least 3-5 days before your scheduled appointment to have your lab work drawn, if lab work is ordered. This will allow us the ability to review your lab work results with you during your scheduled visit. [facility]: Lab is open Monday - Monday from 6:30am to 5pm and open 8am -12pm on Saturdays. [facility]: Monday- 7:30am to 5:30pm. Fridays [...] medicine, or pediatrics at any of our [facility] locations and main campus. documented in this encounterWright-Patterson [facility] Centeralubeebe medical center noteNo assessment information availableWWilson Health Work Phone: evaluation note* Diagnosis Chronic fatigue- Primary Other malaise and fatigue Mixed hyperlipidemia Benign prostatic hyperplasia without lower urinary tract symptoms Screen for colon cancer Special screening for malignant neoplasms, colon documented in this encounter [facility] note* Diagnosis No-show for appointment- Primary documented in this encounter [facility] note* Diagnosis Onset Date Resolution Status Chest pain acute Essential hypertension chron ic Non-ischemic cardiomyopathy resolved [facility] Work Phone: evaluation note* Diagnosis Left elbow pain- Primary Pain in joint, upper arm Chronic left shoulder pain Pain in joint, shoulder region Chest pain, unspecified type Neck pain Cervicalgia Other dysphagia documented in this encounter [facility] note* Diagnosis Neck pain Cervicalgia documented in this encounter [facility] note* Diagnosis Left shoulder pain, unspecified chronicity documented in this encounter [facility] note* Diagnosis Neck pain- Primary Cervicalgia documented in this encounter [facility] note* Diagnosis Neck pain- Primary Cervicalgia documented in this encounter [facility]* Diagnosis Neck pain- Primary Cervicalgia documented in this encounter [facility]* Diagnosis Primary hypertension- Primary Unspecified essential hypertension Other chest pain documented in this encounter [facility] note* Diagnosis Onset Date Resolution Status Chest pain acute Dizziness acute Essential hypertension chron ic Non-ischemic cardiomyopathy resolved [facility] Work Phone: evaluation note* Diagnosis Neck pain- Primary Cervicalgia Chronic left shoulder pain Pain in joint, shoulder region documented in this encounter [facility] note* Diagnosis Neck pain- Primary Cervicalgia documented in this encounter [facility]* Diagnosis Persistent asthma with status asthmaticus, unspecified asthma severity- Primary documented in this encounter [facility]* Diagnosis Mild intermittent asthma, unspecified whether complicated- Primary documented in this encounter [facility]* Diagnosis Mild intermittent asthma without complication- Primary Unspecified asthma documented in this encounter [facility]* Diagnosis Calculus of gallbladder with chronic cholecystitis without obstruction- Primary Calculus of gallbladder with other cholecystitis, without mention of obstruction RUQ pain Abdominal pain, right upper quadrant documented in this encounter [facility]* Diagnosis Hiatal hernia- Primary Diaphragmatic hernia without mention of obstruction or gangrene Esophageal dysphagia Dysphagia, pharyngoesophageal phase Gastroesophageal reflux disease, unspecified whether esophagitis present Screening for colorectal cancer Special screening for malignant neoplasms, colon documented in this encounter [facility]* Diagnosis Persistent asthma with status asthmaticus, unspecified asthma severity documented in this encounter [facility]* Diagnosis Shortness of breath- Primary Blunt [...] Nocturnal hypoxemia Hypoxemia documented in this encounter [facility]* Diagnosis Screening for prostate cancer- Primary Special screening for malignant neoplasm of prostate HLD (hyperlipidemia) Other and unspecified hyperlipidemia documented in this encounter [facility] note* Diagnosis Onset Date Resolution Status Dizziness acute Essential hypertension chron ic Non-ischemic cardiomyopathy resolved [facility] Work Phone: Evaluation note* Diagnosis Essential hypertension- Primary Unspecified essential hypertension Mixed hyperlipidemia Gastroesophageal reflux disease without esophagitis Esophageal reflux documented in this encounter [facility]* Diagnosis Shortness of breath- Primary documented in this encounter [facility] note* Diagnosis Convulsive syncope- Primary Syncope and collapse Syncope, unspecified syncope type documented in this encounter [facility]* Diagnosis Shortness of breath- Primary documented in this encounter [facility]* Diagnosis Moderate persistent asthma without complication- Primary Unspecified asthma documented in this encounter [facility]* Diagnosis Hypertension Unspecified essential hypertension documented in this encounter [facility] CenterEvalubeebe [facility] center note* Diagnosis Essential hypertension- Primary Unspecified essential hypertension Mixed hyperlipidemia Screen for colon cancer Special screening for malignant neoplasms, colon documented in this encounter [facility]* Diagnosis Hyperlipidemia, unspecified hyperlipidemia type documented in this encounter [facility]* Diagnosis Esophageal dysphagia Dysphagia, pharyngoesophageal phase Gastroesophageal reflux disease, unspecified whether esophagitis present Hiatal hernia Diaphragmatic hernia without mention of obstruction or gangrene [facility] Chronic left shoulder pain Pain in joint, shoulder region Left elbow pain Pain in joint, upper arm Neck pain Cervicalgia [facility]* [facility] Hyperlipidemia, unspecified hyperlipidemia type [facility]* Diagnosis 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) Hyperlipidemia, unspecified hyperlipidemia type [facility]* Diagnosis Essential hypertension- Primary Unspecified essential hypertension Encounter for immunization Need for other specified prophylactic vaccination against single bacterial disease Hyperlipidemia, unspecified hyperlipidemia type 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) [facility] Screening for prostate cancer- Primary Special screening for malignant neoplasm of prostate HLD (hyperlipidemia) Other and unspecified hyperlipidemia [facility] Essential hypertension- Primary Unspecified essential hypertension Mixed hyperlipidemia [facility] Diagnosis Coronary artery disease of [place] artery of [place] heart with stable angina pectoris [facility] Diagnosis Essential hypertension- Primary Unspecified essential hypertension HLD (hyperlipidemia) Other and unspecified hyperlipidemia Screening for prostate cancer Special screening for malignant neoplasm of prostate Hyperglycemia Other abnormal glucose [facility] Essential hypertension- Primary Unspecified essential hypertension Mixed hyperlipidemia Hyperglycemia Other abnormal glucose Screen for colon cancer Special screening for malignant neoplasms, colon [facility] Additional Instructions The cause of your chest pain is not clear. It seemed to improve most with breathing treatment. Please follow-up with your primary care doctor for further evaluation of this. No signs of a heart attack or pneumonia today. Use the inhaler you were given 1 to 2 puffs every 4-6 hours as needed for shortness of breath or wheezing.[facility] Work Phone: Hospital Discharge instructions Additional Instructions Please follow-up with your PCP regarding your blood pressure as well as outpatient stress test.[facility] Work Phone: Hospital Discharge instructions Additional Instructions Thank you for trusting us with your care today! Please take Tylenol (2 pills, 650 mg), ibuprofen (2 pills, 400 mg) every 6 hours as needed for pain and fever control. Please return to the emergency department if your symptoms change or worsen. Please follow with your primary care physician for further outpatient evaluation and management.[facility] Work Phone: Hospital Discharge instructions Additional Instructions Increase fluids at home. Take daily multivitamins. Increase fluids with Gatorade or Powerade. Follow-up with PCP for further testing if you have another near syncopal/passing out episode. Use Tylenol as needed for headache.[facility] Work Phone: Hospital Discharge instructions Additional Instructions Follow-up with your doctor in the outpatient setting. Ensure that you are drinking plenty of fluids. Return with worsening symptoms or other concerns.[facility] Work Phone: Hospital Discharge instructionsAdditional Instructions You will need to contact your doctor for referral to repair your hiatal hernia. He will need to be done at a larger hospital.[facility] Work Phone: Instructions* Name Dates Details Patient [...] Informa tion Online using Patient Portal and [employer] Apps Indication:Nonsmoker Start:01-Jan-2021 Instruction Type:Patient Education How [...] Informa tion Online using Patient Portal and [employer] Apps Indication:Nonsmoker Start:17-Mar-2021 Instruction Type:Patient Education Patient Instructions Indication:Nonsmoker Start:01-Jan-2021 Instruction Type:Provider Instructions for Treatment How to Access Health Informa tion Online using Patient Portal and [employer] Apps Indication:Nonsmoker Start:01-Jan-2021 Instruction Type:Patient Education [...] Informa tion Online using Patient Portal and [employer] Apps Indication:BMI 27.0-27.9,adult Start:26-Jan-2022 Instruction Type:Patient Education Patient Instructions Indication:BMI 27.0-27.9,adult Start:17-Mar-2021 Instruction Type:Provider Instructions for Treatment How to Access Health Informa tion Online using Patient Portal and [employer] Apps Indication:Nonsmoker Start:17-Mar-2021 Instruction Type:Patient Education Patient Instructions Indication:Nonsmoker Start:01-Jan-2021 Instruction Type:Provider Instructions for Treatment How to Access Health Informa tion Online using Patient Portal and [employer] Apps Indication:Nonsmoker Start:01-Jan-2021 Instruction Type:Patient Education [...] Informa tion Online using Patient Portal and [employer] Apps Indication:Hypertension Start:04-Jul-2022 Instruction Type:Patient Education Patient Instructions Indication:BMI 26.0-26.9,adult Start:15-Jun-2022 Instruction Type:Provider Instructions for Treatment How to Access Health Informa tion Online using Patient Portal and [employer] Apps Indication:BMI 26.0-26.9,adult Start:15-Jun-2022 Instruction Type:Patient Education How to Access Health Informa tion Online using Patient Portal and [employer] Apps Indication:Nonsmoker Start:31-May-2022 Instruction Type:Patient Education Patient Instructions Indication:Nonsmoker Start:31-May-2022 Instruction Type:Provider Instructions for Treatment Patient Instructions Indication:BMI 26.0-26.9,adult Start:27-May-2022 Instruction Type:Provider Instructions for Treatment How to Access Health Informa tion Online using Patient Portal and [employer] Apps Indication:BMI 26.0-26.9,adult Start:27-May-2022 Instruction Type:Patient [...] Informa tion Online using Patient Portal and [employer] Apps Indication:BMI 26.0-26.9,adult Start:15-Jun-2022 Instruction Type:Patient [...] Informa tion Online using Patient Portal and [employer] Apps Indication:BMI 26.0-26.9,adult Start:13-Jul-2022 Instruction Type:Patient Education Patient Instructions Indication:BMI 26.0-26.9,adult Start:15-Jun-2022 Instruction Type:Provider Instructions for Treatment How to Access Health Informa tion Online using Patient Portal and [employer] Apps Indication:BMI 26.0-26.9,adult Start:15-Jun-2022 Instruction Type:Patient Education How to Access Health Informa tion Online using Patient Portal and [employer] Apps Indication:Nonsmoker Start:31-May-2022 Instruction Type:Patient Education [...] Informa tion Online using Patient Portal and [employer] Apps Indication:Nonsmoker Start:21-Oct-2022 Instruction Type:Patient Education Patient Instructions Indication:Nonsmoker Start:21-Oct-2022 Instruction Type:Provider Instructions for Treatment Patient Instructions Indication:BMI 26.0-26.9,adult Start:28-Sep-2022 Instruction Type:Provider Instructions for Treatment How to Access Health Informa tion Online using Patient Portal and [employer] Apps Indication:BMI 26.0-26.9,adult Start:28-Sep-2022 Instruction Type:Patient Education [...] Informa tion Online using Patient Portal and [employer] Apps Indication:Nonsmoker Start:01-Jan-2021 Instruction Type:Patient Education [...] Informa tion Online using Patient Portal and [employer] Apps Indication:Nonsmoker Start:21-Oct-2022 Instruction Type:Patient Education Patient Instructions Indication:Nonsmoker Start:21-Oct-2022 Instruction Type:Provider Instructions for Treatment Patient Instructions Indication:BMI 26.0-26.9,adult Start:28-Sep-2022 Instruction Type:Provider Instructions for Treatment How to Access Health Informa tion Online using Patient Portal and [employer] Apps Indication:BMI 26.0-26.9,adult Start:28-Sep-2022 Instruction Type:Patient [...] Informa tion Online using Patient Portal and [employer] Apps Indication:Nonsmoker Start:07-Mar-2023 Instruction Type:Patient Education [...] Informa tion Online using Patient Portal and [employer] Apps Indication:Nonsmoker Start:07-Mar-2023 Instruction Type:Patient Education Patient Instructions Indication:Chest pain Start:08-Feb-2023 Instruction Type:Provider Instructions for Treatment How to Access Health Informa tion Online using Patient Portal and [employer] Apps Indication:Chest pain Start:08-Feb-2023 Instruction Type:Patient Education How to Access Health Informa tion Online using Patient Portal and [employer] Apps Indication:Nonsmoker Start:21-Oct-2022 Instruction Type:Patient Education Patient Instructions Indication:Nonsmoker Start:21-Oct-2022 Instruction Type:Provider Instructions for Treatment Patient Instructions Indication:BMI 26.0-26.9,adult Start:28-Sep-2022 Instruction Type:Provider Instructions for Treatment How to Access Health Informa tion Online using Patient Portal and [employer] Apps Indication:BMI 26.0-26.9,adult Start:28-Sep-2022 Instruction Type:Patient Education Patient Instructions Indication:BMI 26.0-26.9,adult Start:19-Sep-2022 Instruction Type:Provider Instructions for Treatment How to Access Health Informa tion Online using Patient Portal and [employer] Apps Indication:BMI 26.0-26.9,adult Start:19-Sep-2022 Instruction Type:Patient [...] Informa tion Online using Patient Portal and [employer] Apps Indication:Nonsmoker Start:07-Mar-2023 Instruction Type:Patient Education Patient Instructions Indication:Chest pain Start:08-Feb-2023 Instruction Type:Provider Instructions for Treatment How to Access Health Informa tion Online using Patient Portal and [employer] Apps Indication:Chest pain Start:08-Feb-2023 Instruction Type:Patient [...] Informa tion Online using Patient Portal and [employer] Apps Indication:Chest pain Start:08-Feb-2023 Instruction Type:Patient Education How to Access Health Informa tion Online using Patient Portal and [employer] Apps Indication:Nonsmoker Start:21-Oct-2022 Instruction Type:Patient Education [...] Referred By Lizett patel Referred To Contact [facility] Diagnoses Other chest pain Procedures ECG COMPLETE ECG ROUTINE ECG W/LEAST 12 LDS W/I&R Prashanth Luna APRN.ALEX [address] [place] [address] [address] Referral ID Status Reason Start Date Expiration Date V isits Requested Visits Authorized [id number] Closed Auto-Generate d Referral 01/31/2023 01/31/2024 1 1 [facility] for referral (narrative)* Outpatient Procedure (Routine) - Pending Review Specialty Diagnoses / Procedures Referred By Lizett patel Referred [facility] Diagnoses Persistent asthma with status asthmaticus, unspecified asthma severity Procedures SPIROMETRY - BASELINE AND POST DILATOR BRNCDILAT RSPSE SPMTRY PRE&POST-BRNCDILAT Awilda Be MD [address] [place] [address] [address] Referral ID Status Reason Start Date Expiration Date Visits Requested Visits Authorized [id number] Pending Review Auto-Generat ed Referral 04/03/2023 05/02/2024 1 1 * Outpatient Procedure (Routine) - Pending Review Specialty Diagnoses / Procedures Referred By Contac t Referred To Contact [facility] Diagnoses Persistent asthma with status asthmaticus, unspecified asthma severity Procedures NITRIC OXIDE, EXHALED NITRIC OXIDE GAS DETERMINATION Awilda Garcia MD [address] [place] [address] Respiratory [place] [address] [place], [place] [id number] Referral ID Status Reason Start Date Expiration Date Visits Requested Visits Authorized [id number] Pending Review Auto-Generat ed Referral 05/04/2023 05/02/2024 1 1 [facility] for referral (narrative)* Outpatient Procedure (Routine) - Authorized Specialty Diagnoses / Procedures Referred By Contac t Referred To Contact [facility] Diagnoses Esophageal dysphagia Gastroesophageal reflux disease, unspecified whether esophagitis present Hiatal hernia Procedures EGD DIAGNOSTIC ESOPHAGOGASTRODUODENOSC OPY TRANSORAL DIAGNOSTIC Sebastian Abdalla Jr., [address] [place] [address] [facility] [place] [address] [place] [address] Referral ID Status Reason Start Date Expiration Date Visits Requested Visits Authorized [id number] Authorized Auto-Generat ed Referral 04/14/2023 04/14/2024 1 1 [facility] for referral (narrative)* Outpatient Procedure (Routine) - Pending Review Specialty Diagnoses / Procedures Referred By Contac t Referred To [facility] Diagnoses Hypoxemia Restrictive pattern present on pulmonary function testing Atelectasis Shortness of breath Procedures LUNG DIFFUSION CAPACITY (DLCO) DIFFUSING CAPACITY Leyla Tam MD [address] [place] [address] Respiratory [place] [address] [place] [id number] Referral ID Status Reason Start Date Expiration Date Visits Requested Visits Authorized [id number] Pending Review Auto-Generat ed Referral 05/15/2023 06/13/2024 1 1 * Outpatient Procedure (Routine) - Pending Review Specialty Diagnoses / Procedures Referred By Lizett patel Referred [facility] Diagnoses Hypoxemia Restrictive pattern present on pulmonary function testing Atelectasis Shortness of breath Procedures LUNG VOLUMES Leyla Tam MD [address] [place] [address] Respiratory [place] [address] [place] [address] Referral ID Status Reason Start Date Expiration Date Visits Requested Visits Authorized [id number] Pending Review Auto-Generat ed Referral 05/15/2023 06/13/2024 1 1 * Outpatient Procedure (Routine) - Pending Review Specialty Diagnoses / Procedures Referred By Lizett patel Referred [facility] Diagnoses Hypoxemia Restrictive pattern present on pulmonary function testing Atelectasis Shortness of breath Procedures SPIROMETRY WITH DILATOR IF OBSTRUCTED BRNCDILAT RSPSE SPMTRY PRE&POST-BRNCDILAT ADMLeyla Harris MD [address] [place] [address] Respiratory [place] [address] [place] [address] Referral ID Status Reason Start Date Expiration Date Visits Requested Visits Authorized [id number] Pending Review Auto-Generat ed Referral 05/15/2023 06/13/2024 1 1 [facility] for referral (narrative)* Outpatient Procedure (Routine) - Pending Review Specialty Diagnoses / Procedures Referred By Lizett t Referred To Contact [facility] Diagnoses Shortness of breath Procedures SPIROMETRY WITH DILATOR IF OBSTRUCTED BRNCDILAT RSPSE SPMTRY PRE&POST-BRNCDILAT ADMSabrina Preston MD [address] [place] [address] Respiratory [place] [address] [place] [phone] Referral ID Status Reason Start Date Expiration Date Visits Requested Visits Authorized [id number] Pending Review Auto-Generat ed Referral 3 09/26/2024 1 1 [facility] for referral (narrative)* Outpatient Procedure (Routine) - Authorized Specialty Diagnoses / Procedures Referred By Lizett patel Referred To Contact [facility] Diagnoses Syncope, unspecified syncope type Convulsive syncope Procedures EPIL EEG ROUTINE ELECTROENCEPHALOGRAM REC COMA/[place] [address] [place] [address] [address] Referral ID Status Reason Start Date Expiration Date Visits Requested Visits Authorized [id number] Authorized Auto-Generat ed Referral 11/03/2023 11/03/2024 1 1 [facility] for referral (narrative)* Outpatient Procedure (Routine) - Closed Specialty Diagnoses / Procedures Referred By Lizett Referred To Contact [facility] Diagnoses Esophageal dysphagia Gastroesophageal reflux disease, unspecified whether esophagitis present Hiatal hernia Procedures EGD DIAGNOSTIC ESOPHAGOGASTRODUODENOSC OPY TRANSORAL DIAGNOSTIC Sebastian Abdalla Jr., DO [address] [place] [address] [facility] [place] [address] [place] [address] Referral ID Status Reason Start Date Expiration Date V isits Requested Visits Authorized [id number] Closed Auto-Generate d Referral 04/14/2023 04/14/2024 1 1 [facility] for referral (narrative)* Diagnostic Procedure Only (Routine) - Closed Specialty Diagnoses / Procedures Referred By Lizett Referred To Contact XR IMAGING Diagnoses Neck pain Procedures XR CERV OTHER 4V AP/LAT/OBL RADEX SPINE CERVICAL 4 OR 5 VIEWS Awilda Garcia MD [address] [place] [address] [place] [address] Referral ID Status Reason Start Date Expiration Date V isits Requested Visits Authorized [id number] Closed Auto-Generate d Referral 12/20/2022 01/19/2024 1 1 * Diagnostic Procedure Only (Routine) - Closed Specialty Diagnoses / Procedures Referred By Contac t Referred To Contact XR IMAGING Diagnoses Left elbow pain Procedures XR ELBOW GENERAL 2V AP/LAT LEFT RADEX ELBOW 2 VIEWS Awilda Garcia MD [address] [place] [address] [place] [address] Referral ID Status Reason Start Date Expiration Date V isits Requested Visits Authorized [id number] Closed Auto-Generate d Referral 12/20/2022 01/19/2024 1 1 * Diagnostic Procedure Only (Routine) - Closed Specialty Diagnoses / Procedures Referred By Contac t Referred To Contact XR IMAGING Diagnoses Chronic left shoulder pain Procedures XR SHOULDER GENERAL 3V OR MORE AP/TRUE AP/OTHER LEFT RADEX SHOULDER COMPLETE MINIMUM 2 VIEWS Awilda Garcia MD [address] [place] [address] [place] [address] Referral ID Status Reason Start Date Expiration Date V isits Requested Visits Authorized [id number] Closed Auto-Generate d Referral 12/20/2022 01/19/2024 1 1 [facility] for referral (narrative)* Outpatient Procedure (Routine) - New Request Specialty Diagnoses / Procedures Referred By Contac t Referred To Contact [facility] Diagnoses 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) Procedures ECG COMPLETE ECG ROUTINE ECG W/LEAST 12 LDS W/I&[place] [address] [place] [address] [facility] [place] [address] [place] [address] Referral ID Status Reason Start Date Expiration Date Visits Requested Visits Authorized [id number] New Request Auto-Generat ed Referral 07/18/2025 1 1 [facility] for referral (narrative)No reason for referral information [facility] Phone: [facility] Narrative* Diagnostic Procedure Only (Routine) - Closed Specialty Diagnoses / Procedures Referred By Lizett patel Referred To Contact [facility]LECULAR [facility] FUN[facility]AL [facility]ING Diagnoses 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) Procedures NM CARDIAC PERF STRESS/PHARM MYOCARDIAL [place] [address] [place] [address] Molecular [facility] [address] [place] [address] Referral ID Status Reason Start Date Expiration Date V isits Requested Visits Authorized [id number] Closed Auto-Generate d Referral 02/15/2023 03/16/2024 1 1 [facility] for visit Narrative* Outpatient Procedure (Routine) - Closed Specialty Diagnoses / Procedures Referred By Lizett patel Referred To Contact [facility] Diagnoses Esophageal dysphagia Gastroesophageal reflux disease, unspecified whether esophagitis present Hiatal hernia Procedures EGD DIAGNOSTIC ESOPHAGOGASTRODUODENOSC OPY TRANSORAL DIAGNOSTIC Sebastian Abdalla Jr., DO [address] [place] [address] [facility] [place] [address] [place] [address] Referral ID Status Reason Start Date Expiration Date V isits Requested Visits Authorized [id number] Closed Auto-Generate d Referral 04/14/2023 04/14/2024 1 1 [facility] for visit Narrative* Diagnostic Procedure Only (Routine) - Closed Specialty Diagnoses / Procedures Referred By Lizett patel Referred To Contact XR IMAGING Diagnoses Neck pain Procedures XR CERV OTHER 4V AP/LAT/OBL RADEX SPINE CERVICAL 4 OR 5 VIEWS Awilda Garcia MD [address] [place] [address] [place] [address] Referral ID Status Reason Start Date Expiration Date V isits Requested Visits Authorized [id number] Closed Auto-Generate d Referral 12/20/2022 01/19/2024 1 1 [facility] Instructions Name Dates Details How to access [...] CHEST PAIN April 14, 2025 7:57 pm Chief Complaint Admit Date dizzy March 26, 2025 9:00 am CHEST PAIN April 14, 2025 7:57 pm chest pain June 21, 2025 6:04pm Family History No Family History Records Found Relationship Condition Age at Onset Recorded Date/T esmer mother Diabetes mellitus Unknown Cardiac disease Unknown Hypertension Unknown Kidney disorder Unknown father Hypertension Unknown Advance Directives No Advanced Directives Records Found Advance Directive Response Recorded Date/ Time Living Will No January 28, 2022 5:51am Power of Configuration Consultant No January 28 5:51am Documents on File Type Date Recorded 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 Advance Directive(s) 01/08/2022 10:37 PM Advance Directive(s) 03/20/2021 1:43 AM Documents on File Type Date Recorded 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 Advance Directive(s) 01/08/2022 10:37 PM Advance Directive(s) 03/20/2021 1:43 AM Advance Directive Response Recorded Date/ Time Living Will No May 05, 2022 10:59am Power of Configuration Consultant No May 05 10:59am Advance Directive Response Recorded Date/ Time Living Will No May 27 3:09pm Power of Configuration Consultant No May 27 022 3:09pm Advance Directive Response Recorded Date/ Time Living Will No June 22, 2022 3:55pm Power of Configuration Consultant No June 3:55pm Advance Directive Response Recorded Date/ Time Living Will No July 08 11:57am Power of Configuration Consultant No July 08 11:57am Advance Directive Response Recorded Date/ Time Living Will No July 08 10:57am Power of Configuration Consultant No July 08 10:57am Advance Directive Response Recorded Date/ Time Living Will No February 08, 2023 9 :47pm Power of Configuration Consultant No February 08, 2023 9:47pm Advance Directive Response Recorded Date/ Time Living Will No April 14, 2023 10:57am Power of Configuration Consultant No April 14 10:57am Advance Directive Response Recorded Date/ Time Living Will No June 16, 2023 11:05am Power of Configuration Consultant No June 11:05am Advance Directive Response Recorded Date/ Time Living Will No September 23 6:15pm Power of Configuration Consultant No September 23, 2023 6:15pm Advance Directive Response Recorded Date/ Time Do you have a Healthcare Power of Configuration Consultant? No March 26, 2025 9:05am Advance Directive Response Recorded Date/ Time Do you have a Healthcare Power of Configuration Consultant? No April 14, 2025 8:31pm Do you have a Healthcare Power of Configuration Consultant? No March 26, 2025 9:05am Advance Directive Response Recorded Date/ Time Do you have a Healthcare Power of Configuration Consultant? No April 14, 2025 8:31pm Do you have a Healthcare Power of Configuration Consultant? No June 21, 2025 6:41pm Do you have a Healthcare Power of Configuration Consultant? No March 26, 2025 9:05am Reason for Referral Specialty Diagnoses / Procedures Referred By Lizett patel Referred To Contact Gastroenterology Diagnoses Other dysphagia Procedures CONSULT TO GASTROENTEROLOGY OFFICE/OUTPATIENT [facility] 60-74 MINUTES Awilda Garcia MD [address] [place] [address] Referral ID Status Reason Start Date Expiration Date Visits Requested Visits Authorized [id number] Pending Review PCP Requested Referral 12/20/2022 12/20/2023 1 1 Specialty Diagnoses / Procedures Referred By Contac t Referred To Contact XR IMAGING Diagnoses Neck pain Procedures XR CERV OTHER 4V AP/LAT/OBL RADEX SPINE CERVICAL 4 OR 5 VIEWS Awilda Garcia MD [address] [place] [address] Xr Imaging Referral ID Status Reason Start Date Expiration Date V isits Requested Visits Authorized [id number] Closed Auto-Generate d Referral 12/20/2022 01/19/2024 1 1 Specialty Diagnoses / Procedures Referred By Contac t Referred To Contact [facility] Diagnoses Neck pain Procedures CONSULT TO PHYSICAL THERAPY PHYSICAL THERAPY [facility] 45 MINS Awilda Garcia MD [address] [place] [address] [facility] [address] [address] Referral ID Status Reason Start Date Expiration Date Visits Requested Visits Authorized [id number] Pending Review Auto-Generat ed Referral 12/20/2022 12/20/2023 1 1 Specialty Diagnoses / Procedures Referred By Contac t Referred To Contact Cardiology Diagnoses Chest pain, unspecified type Procedures CONSULT TO CARDIOLOGY OFFICE/OUTPATIENT [facility] 60-74 MINUTES Awilda Garcia MD [address] [place] [address] Referral ID Status Reason Start Date Expiration Date Visits Requested Visits Authorized [id number] Pending Review PCP Requested Referral 12/20/2022 12/20/2023 1 1 Specialty Diagnoses / Procedures Referred By Contac t Referred To Contact XR IMAGING Diagnoses Left elbow pain Procedures XR ELBOW GENERAL 2V AP/LAT LEFT RADEX ELBOW 2 VIEWS Awilda Garcia MD [address] [place] [address] Xr Imaging Referral ID Status Reason Start Date Expiration Date V isits Requested Visits Authorized [id number] Closed Auto-Generate d Referral 12/20/2022 01/19/2024 1 1 Specialty Diagnoses / Procedures Referred By Contac t Referred To Contact XR IMAGING Diagnoses Chronic left shoulder pain Procedures XR SHOULDER GENERAL 3V OR MORE AP/TRUE AP/OTHER LEFT RADEX SHOULDER COMPLETE MINIMUM 2 VIEWS Awilda Garcia MD [address] [place] [address] Xr Imaging Referral ID Status Reason Start Date Expiration Date V isits Requested Visits Authorized [id number] Closed Auto-Generate d Referral 12/20/2022 01/19/2024 1 1 Specialty Diagnoses / Procedures Referred By Contac t Referred To Contact Orthopedics Diagnoses Chronic left shoulder pain Procedures CONSULT TO ORTHOPAEDICS OFFICE/OUTPATIENT [facility] 60-74 MINUTES Awilda Garcia MD [address] [place] [address] Referral ID Status Reason Start Date Expiration Date Visits Requested Visits Authorized [id number] Pending Review PCP Requested Referral 12/20/2022 12/20/2023 1 1 Specialty Diagnoses / Procedures Referred By Contac t Referred To Contact [facility] Diagnoses Neck pain Procedures PT REHAB FOLLOW UP ORDER THERAPEUTIC EXERCISES RE, EA 15 MIN. Genia Castañeda, PT [address] [place] [address] [facility] [place] [address] [place] [address] Referral ID Status Reason Start Date Expiration Date Visits Requested Visits Authorized [id number] Pending Review PCP Requested Referral Auto-Generate d Referral 01/05/2023 04/05/2023 1 1 Specialty Diagnoses / Procedures Referred By Contac t Referred To Contact [facility] Diagnoses Neck pain Chronic left shoulder pain Procedures PT REHAB FOLLOW UP ORDER THERAPEUTIC EXERCISES RE, EA 15 MIN. Mihir Castañedaison, PT [address] [place] [address] [facility] [place] [address] [place] [address] Referral ID Status Reason Start Date Expiration Date Visits Requested Visits Authorized [id number] Pending Review PCP Requested Referral Auto-Generate d Referral 03/01/2023 05/30/2023 1 1 Specialty Diagnoses / Procedures Referred By Contac t Referred To Contact Pulmonary and Critical Care Medicine Diagnoses Mild intermittent asthma without complication Procedures CONSULT TO PULM/CRITICAL CARE OFFICE/OUTPATIENT [facility] 60-74 MINUTES Prashanth Luna, ASSISTANT SERVICE MANAGER.[employer] [address] [place] [address] Referral ID Status Reason Start Date Expiration Date Visits Requested Visits Authorized [id number] Pending Review PCP Requested Referral 04/02/2023 04/01/2024 [...] or prosecute any alcohol or drug abuse patient.[facility] CenterIn the event this information is protected by the Federal Confidentiality of Alcohol and Drug Abuse Patient Records regulations: The Federal rules restrict any use of the information to criminally investigate or prosecute any alcohol or drug abuse patient.[facility] CenterIn the event this information is protected by the Federal Confidentiality of Alcohol and Drug Abuse Patient Records regulations: The Federal rules restrict any use of the information to criminally investigate or prosecute any alcohol or drug abuse patient.[facility] CenterIn the event this information is protected by the Federal Confidentiality of Alcohol and Drug Abuse Patient Records regulations: The Federal rules restrict any use of the information to criminally investigate or prosecute any alcohol or drug abuse patient.[facility] CenterIn the event this information is protected by the Federal Confidentiality of Alcohol and Drug Abuse Patient Records regulations: The Federal rules restrict any use of the information to criminally investigate or prosecute any alcohol or drug abuse patient.[facility] CenterIn the event this information is protected by the Federal Confidentiality of Alcohol and Drug Abuse Patient Records regulations: The Federal rules restrict any use of the information to criminally investigate or prosecute any alcohol or drug abuse patient.[facility] CenterIn the event this information is protected by the Federal Confidentiality of Alcohol and Drug Abuse Patient Records regulations: The Federal rules restrict any use of the information to criminally investigate or prosecute any alcohol or drug abuse patient.[facility] CenterIn the event this information is protected by the Federal Confidentiality of Alcohol and Drug Abuse Patient Records regulations: The Federal rules restrict any use of the information to criminally investigate or prosecute any alcohol or drug abuse patient.[facility] CenterIn the event this information is protected by the Federal Confidentiality of Alcohol and Drug Abuse Patient Records regulations: The Federal rules restrict any use of the information to criminally investigate or prosecute any alcohol or drug abuse patient.[facility] CenterIn the event this information is protected by the Federal Confidentiality of Alcohol and Drug Abuse Patient Records regulations: The Federal rules restrict any use of the information to criminally investigate or prosecute any alcohol or drug abuse patient.[facility] CenterIn the event this information is protected by the Federal Confidentiality of Alcohol and Drug Abuse Patient Records regulations: The Federal rules restrict any use of the information to criminally investigate or prosecute any alcohol or drug abuse patient.[facility] CenterIn the event this information is protected by the Federal Confidentiality of Alcohol and Drug Abuse Patient Records regulations: The Federal rules restrict any use of the information to criminally investigate or prosecute any alcohol or drug abuse patient.[facility] CenterIn the event this information is protected by the Federal Confidentiality of Alcohol and Drug Abuse Patient Records regulations: The Federal rules restrict any use of the information to criminally investigate or prosecute any alcohol or drug abuse patient.[facility] CenterIn the event this information is protected by the Federal Confidentiality of Alcohol and Drug Abuse Patient Records regulations: The Federal rules restrict any use of the information to criminally investigate or prosecute any alcohol or drug abuse patient.[facility] CenterIn the event this information is protected by the Federal Confidentiality of Alcohol and Drug Abuse Patient Records regulations: The Federal rules restrict any use of the information to criminally investigate or prosecute any alcohol or drug abuse patient.[facility] CenterIn the event this information is protected by the Federal Confidentiality of Alcohol and Drug Abuse Patient Records regulations: The Federal rules restrict any use of the information to criminally investigate or prosecute any alcohol or drug abuse patient.[facility] CenterIn the event this information is protected by the Federal Confidentiality of Alcohol and Drug Abuse Patient Records regulations: The Federal rules restrict any use of the information to criminally investigate or prosecute any alcohol or drug abuse patient.[facility] CenterIn the event this information is protected by the Federal Confidentiality of Alcohol and Drug Abuse Patient Records regulations: The Federal rules restrict any use of the information to criminally investigate or prosecute any alcohol or drug abuse patient.[facility] CenterIn the event this information is protected by the Federal Confidentiality of Alcohol and Drug Abuse Patient Records regulations: The Federal rules restrict any use of the information to criminally investigate or prosecute any alcohol or drug abuse patient.[facility] CenterIn the event this information is protected by the Federal Confidentiality of Alcohol and Drug Abuse Patient Records regulations: The Federal rules restrict any use of the information to criminally investigate or prosecute any alcohol or drug abuse patient.[facility] CenterIn the event this information is protected by the Federal Confidentiality of Alcohol and Drug Abuse Patient Records regulations: The Federal rules restrict any use of the information to criminally investigate or prosecute any alcohol or drug abuse patient.[facility] CenterIn the event this information is protected by the Federal Confidentiality of Alcohol and Drug Abuse Patient Records regulations: The Federal rules restrict any use of the information to criminally investigate or prosecute any alcohol or drug abuse patient.[facility] CenterIn the event this information is protected by the Federal Confidentiality of Alcohol and Drug Abuse Patient Records regulations: The Federal rules restrict any use of the information to criminally investigate or prosecute any alcohol or drug abuse patient.[facility] CenterIn the event this information is protected by the Federal Confidentiality of Alcohol and Drug Abuse Patient Records regulations: The Federal rules restrict any use of the information to criminally investigate or prosecute any alcohol or drug abuse patient.[facility] CenterIn the event this information is protected by the Federal Confidentiality of Alcohol and Drug Abuse Patient Records regulations: The Federal rules restrict any use of the information to criminally investigate or prosecute any alcohol or drug abuse patient.[facility] CenterIn the event this information is protected by the Federal Confidentiality of Alcohol and Drug Abuse Patient Records regulations: The Federal rules restrict any use of the information to criminally investigate or prosecute any alcohol or drug abuse patient.[facility] CenterIn the event this information is protected by the Federal Confidentiality of Alcohol and Drug Abuse Patient Records regulations: The Federal rules restrict any use of the information to criminally investigate or prosecute any alcohol or drug abuse patient.[facility] CenterIn the event this information is protected by the Federal Confidentiality of Alcohol and Drug Abuse Patient Records regulations: The Federal rules restrict any use of the information to criminally investigate or prosecute any alcohol or drug abuse patient.[facility] CenterIn the event this information is protected by the Federal Confidentiality of Alcohol and Drug Abuse Patient Records regulations: The Federal rules restrict any use of the information to criminally investigate or prosecute any alcohol or drug abuse patient.[facility] CenterIn the event this information is protected by the Federal Confidentiality of Alcohol and Drug Abuse Patient Records regulations: The Federal rules restrict any use of the information to criminally investigate or prosecute any alcohol or drug abuse patient.[facility] CenterIn the event this information is protected by the Federal Confidentiality of Alcohol and Drug Abuse Patient Records regulations: The Federal rules restrict any use of the information to criminally investigate or prosecute any alcohol or drug abuse patient.[facility] CenterIn the event this information is protected by the Federal Confidentiality of Alcohol and Drug Abuse Patient Records regulations: The Federal rules restrict any use of the information to criminally investigate or prosecute any alcohol or drug abuse patient.[facility] CenterIn the event this information is protected by the Federal Confidentiality of Alcohol and Drug Abuse Patient Records regulations: The Federal rules restrict any use of the information to criminally investigate or prosecute any alcohol or drug abuse patient.[facility] CenterIn the event this information is protected by the Federal Confidentiality of Alcohol and Drug Abuse Patient Records regulations: The Federal rules restrict any use of the information to criminally investigate or prosecute any alcohol or drug abuse patient.[facility] CenterIn the event this information is protected by the Federal Confidentiality of Alcohol and Drug Abuse Patient Records regulations: The Federal rules restrict any use of the information to criminally investigate or prosecute any alcohol or drug abuse patient.[facility] CenterIn the event this information is protected by the Federal Confidentiality of Alcohol and Drug Abuse Patient Records regulations: The Federal rules restrict any use of the information to criminally investigate or prosecute any alcohol or drug abuse patient.[facility] CenterIn the event this information is protected by the Federal Confidentiality of Alcohol and Drug Abuse Patient Records regulations: The Federal rules restrict any use of the information to criminally investigate or prosecute any alcohol or drug abuse patient.[facility] CenterIn the event this information is protected by the Federal Confidentiality of Alcohol and Drug Abuse Patient Records regulations: The Federal rules restrict any use of the information to criminally investigate or prosecute any alcohol or drug abuse patient.[facility] CenterIn the event this information is protected by the Federal Confidentiality of Alcohol and Drug Abuse Patient Records regulations: The Federal rules restrict any use of the information to criminally investigate or prosecute any alcohol or drug abuse patient.[facility] CenterIn the event this information is protected by the Federal Confidentiality of Alcohol and Drug Abuse Patient Records regulations: The Federal rules restrict any use of the information to criminally investigate or prosecute any alcohol or drug abuse patient.[facility] CenterIn the event this information is protected by the Federal Confidentiality of Alcohol and Drug Abuse Patient Records regulations: The Federal rules restrict any use of the information to criminally investigate or prosecute any alcohol or drug abuse patient.[facility] CenterIn the event this information is protected by the Federal Confidentiality of Alcohol and Drug Abuse Patient Records regulations: The Federal rules restrict any use of the information to criminally investigate or prosecute any alcohol or drug abuse patient.[facility] CenterIn the event this information is protected by the Federal Confidentiality of Alcohol and Drug Abuse Patient Records regulations: The Federal rules restrict any use of the information to criminally investigate or prosecute any alcohol or drug abuse patient.[facility] CenterIn the event this information is protected by the Federal Confidentiality of Alcohol and Drug Abuse Patient Records regulations: The Federal rules restrict any use of the information to criminally investigate or prosecute any alcohol or drug abuse patient.[facility] CenterIn the event this information is protected by the Federal Confidentiality of Alcohol and Drug Abuse Patient Records regulations: The Federal rules restrict any use of the information to criminally investigate or prosecute any alcohol or drug abuse patient.[facility] CenterIn the event this information is protected by the Federal Confidentiality of Alcohol and Drug Abuse Patient Records regulations: The Federal rules restrict any use of the information to criminally investigate or prosecute any alcohol or drug abuse patient.[facility] CenterIn the event this information is protected by the Federal Confidentiality of Alcohol and Drug Abuse Patient Records regulations: The Federal rules restrict any use of the information to criminally investigate or prosecute any alcohol or drug abuse patient.[facility] CenterIn the event this information is protected by the Federal Confidentiality of Alcohol and Drug Abuse Patient Records regulations: The Federal rules restrict any use of the information to criminally investigate or prosecute any alcohol or drug abuse patient.[facility] CenterIn the event this information is protected by the Federal Confidentiality of Alcohol and Drug Abuse Patient Records regulations: The Federal rules restrict any use of the information to criminally investigate or prosecute any alcohol or drug abuse patient.[facility] CenterIn the event this information is protected by the Federal Confidentiality of Alcohol and Drug Abuse Patient Records regulations: The Federal rules restrict any use of the information to criminally investigate or prosecute any alcohol or drug abuse patient.[facility] CenterIn the event this information is protected by the Federal Confidentiality of Alcohol and Drug Abuse Patient Records regulations: The Federal rules restrict any use of the information to criminally investigate or prosecute any alcohol or drug abuse patient.[facility] CenterIn the event this information is protected by the Federal Confidentiality of Alcohol and Drug Abuse Patient Records regulations: The Federal rules restrict any use of the information to criminally investigate or prosecute any alcohol or drug abuse patient.[facility] CenterIn the event this information is protected by the Federal Confidentiality of Alcohol and Drug Abuse Patient Records regulations: The Federal rules restrict any use of the information to criminally investigate or prosecute any alcohol or drug abuse patient.[facility] CenterIn the event this information is protected by the Federal Confidentiality of Alcohol and Drug Abuse Patient Records regulations: The Federal rules restrict any use of the information to criminally investigate or prosecute any alcohol or drug abuse patient.[facility] CenterIn the event this information is protected by the Federal Confidentiality of Alcohol and Drug Abuse Patient Records regulations: The Federal rules restrict any use of the information to criminally investigate or prosecute any alcohol or drug abuse patient.[facility] CenterIn the event this information is protected by the Federal Confidentiality of Alcohol and Drug Abuse Patient Records regulations: The Federal rules restrict any use of the information to criminally investigate or prosecute any alcohol or drug abuse patient.[facility] CenterIn the event this information is protected by the Federal Confidentiality of Alcohol and Drug Abuse Patient Records regulations: The Federal rules restrict any use of the information to criminally investigate or prosecute any alcohol or drug abuse patient.[facility] CenterIn the event this information is protected by the Federal Confidentiality of Alcohol and Drug Abuse Patient Records regulations: The Federal rules restrict any use of the information to criminally investigate or prosecute any alcohol or drug abuse patient.[facility] CenterIn the event this information is protected by the Federal Confidentiality of Alcohol and Drug Abuse Patient Records regulations: The Federal rules restrict any use of the information to criminally investigate or prosecute any alcohol or drug abuse patient.[facility] Reason for Visit (unrecogniz ed section and content) Reason Comments PT Progress Note Specialty Diagnoses / Procedures Referred By Contnorris t Referred To Contact [facility] Diagnoses Neck pain Procedures CONSULT TO PHYSICAL THERAPY PHYSICAL THERAPY EVALUATION HIGH COMPLEX 45 MINS Awilda Garcia MD [address] [place] [address] [facility] [place] [address] [place] [address] Referral ID Status Reason Start Date Expiration Date Visits Requested Visits Authorized [id number] Authorized Auto-Generat ed Referral 10/02/2022 10/01/2023 20 20 Reason Comments Establish Care Pain, Back Lower back pain radi ating to the belly Specialty Diagnoses / Procedures Referred By Contac t Referred To Contact Chiropractor / WELLNESS Diagnoses Chiropractor Procedures [facility] Miguel Angel, Yobany Nichols [place] [address] [place] [address] Referral ID Status Reason Start Date Expiration Date V isits Requested Visits Authorized [id number] Authorized 04/12/2022 10/01/2022 99 99 Reason Comments [...] shoulder pain Procedures CONSULT TO ORTHOPAEDICS OFFICE/OUTPATIENT [facility] MDM 60-74 MINUTES Awilda Garcia MD [address] [place] [address] Referral ID Status Reason Start Date Expiration Date Visits Requested Visits Authorized [id number] Pending Review PCP Requested Referral 12/20/2022 12/20/2023 1 1 Reason Comments Physical Therapy Specialty Diagnoses / Procedures Referred By Contac t Referred To Contact [facility] Diagnoses Neck pain Procedures CONSULT TO PHYSICAL THERAPY PHYSICAL THERAPY EVALUATION HIGH COMPLEX 45 MINS Awilda Garcia MD [address] [place] [address] [facility] [address] [address] Reason Comments Blood Pressure Chest Pain Chest cramps x4-5 mo nths, left side and at times down left arm causing numbness in fingers 2-3x daily Dizziness Dizzy spells x3wks. Falling over a bit Reason Comments Med Change Request Reason Comments Results Reason Comments Appointment Reason Comments Orders Reason Comments Referral Request Reason Comments No Show Attempted to call elmira mccullough regarding 3 no shows and policy to cancel future appointments. Phone number does not work Reason Comments Consult Gallstones referral Reason Comments Throat Problem Specialty Diagnoses / Procedures Referred By Contac t Referred To Contact Gastroenterology Diagnoses Other dysphagia Procedures CONSULT TO GASTROENTEROLOGY OFFICE/OUTPATIENT [facility] 60-74 MINUTES Awilda Garcia MD [address] [place] [address] Referral ID Status Reason Start Date Expiration Date Visits Requested Visits Authorized [id number] Pending Review PCP Requested Referral 12/20/2022 12/20/2023 1 1 Reason Comments Spirometry Specialty Diagnoses / Procedures Referred By Contac t Referred To Contact [facility] Diagnoses Persistent asthma with status asthmaticus, unspecified asthma severity Procedures SPIROMETRY - BASELINE AND POST DILATOR BRNCDILAT RSPSE SPMTRY PRE&POST-BRNCDILAT ADMN Awilda Garcia MD [address] [place] [address] [facility] [place] [address] [place] [address] Referral ID Status Reason Start Date Expiration Date V isits Requested Visits Authorized [id number] Closed Auto-Generate d Referral 04/03/2023 05/02/2024 1 1 Reason Comments Shortness of Breath Specialty Diagnoses / Procedures Referred By Contac t Referred To Contact Pulmonary and Critical Care Medicine / PULMONARY MEDICINE Diagnoses Mild intermittent asthma without complication Procedures CONSULT TO PULM/CRITICAL CARE OFFICE/OUTPATIENT [facility] 60-74 MINUTES Prashanth Luna, ASSISTANT SERVICE MANAGER.[employer] [address] [place] [address] Pulm Lab [facility] [address] [address] Referral ID Status Reason Start Date Expiration Date V isits Requested Visits Authorized [id number] Closed PCP Requested Referral 05/01/2023 10/01/2023 1 1 Reason Comments Abdominal Pain [facility] in [place] told him he needs his gallbladder out. Breast Problem Breathing not gettin g any better hand pain Pain in fingers Reason Comments New Patient Specialty Diagnoses / Procedures Referred By Contac t Referred To Contact Neurology Diagnoses Syncope, unspecified syncope type Procedures CONSULT TO NEUROLOGY OFFICE/OUTPATIENT [facility] 60-74 MINUTES Awilda Garcia MD [address] [place] [address] Or Main [address] [facility] [address] [place] [address] Referral ID Status Reason Start Date Expiration Date V isits Requested Visits Authorized [id number] Closed PCP Requested Referral 10/11/2023 10/01/2024 1 1 Specialty Diagnoses / Procedures Referred By Contac t Referred To Contact [facility] Diagnoses Shortness of breath Procedures SPIROMETRY WITH DILATOR IF OBSTRUCTED BRNCDILAT RSPSE SPMTRY PRE&POST-BRNCDILAT ADMSabrina Preston MD [address] [place] [address] Respiratory [place] [address] [place] [address] Referral ID Status Reason Start Date Expiration Date V isits Requested Visits Authorized [id number] Closed Auto-Generate d Referral 08/30/2023 09/26/2024 1 [...] 2 pints of blood low in the [place] [facility] Reason Onset Date Comments Refill Request 05/15/2025 Care Teams (unrecognized sec tion and content) Slide Machine Tender Relationship Specialty Start Date End Date Awilda Garcia MD [address] [place], [place] [id number] PCP - General Internal Medicine 12/15/22 Slide Machine Tender Relationship Specialty Start Date End Date Awilda Garcia MD [address] [place] [address] PCP - General Internal Medicine 12/15/22 Slide Machine Tender Relationship Specialty Start Date End Date Awilda Garcia MD [address] [place] [address] PCP - General Internal Medicine 12/15/22 Slide Machine Tender Relationship Specialty Start Date End Date Awilda Garcia MD [address] [place] [address] PCP - General Internal Medicine 12/15/22 Slide Machine Tender Relationship Specialty Start Date End Date Awilda Garcia MD [address] [place] [address] PCP - General Internal Medicine 12/15/22 Slide Machine Tender Relationship Specialty Start Date End Date Awilda Garcia MD [address] [place] [address] PCP - General Internal Medicine 12/15/22 Slide Machine Tender Relationship Specialty Start Date End Date Awilda Garcia MD [address] [place] [address] PCP - General Internal Medicine 12/15/22 Slide Machine Tender Relationship Specialty Start Date End Date Awilda Garcia MD [address] [place] [address] PCP - General Internal Medicine 12/15/22 Team Status: Active Member Role Status Dates No Primary Care Physician Family Provider Active ROBINA Anglin Primary Care Provider Active Team Status: Inactive Member Role Status Dates Shreya Cat NP-C Primary Care Provider, Referring Provider Active Brinda Escobedo NP, CORK PAINTER AND GRADER-C Attending Provider Active Team Status: Inactive Member Role Status Dates Shreya Cat CORK PAINTER AND GRADER-C Primary Care Provi braeden, Attending Provider, Referring Provider Active Team Status: Inactive Member Role Status Dates Shreya Cat NP-C Primary Care Provider Active Dr. Calixto Mccullough MD Emergency Provider Active Slide Machine Tender Relationship Specialty Start Date End Date Awilda Garcia MD [address] [place] [address] PCP - General Internal Medicine 12/15/22 Slide Machine Tender Relationship Specialty Start Date End Date Awilda Garcia MD [address] [place] [address] PCP - General Internal Medicine 12/15/22 Slide Machine Tender Relationship Specialty Start Date End Date Awilda Garcia MD [address] [place] [address] PCP - General Internal Medicine 12/15/22 Slide Machine Tender Relationship Specialty Start Date End Date Awilda Garcia MD [address] [place] [address] PCP - General Internal Medicine 12/15/22 Slide Machine Tender Relationship Specialty Start Date End Date Awilda Garcia MD [address] [place] [address] PCP - General Internal Medicine 12/15/22 Slide Machine Tender Relationship Specialty Start Date End Date Awilda Garcia MD [address] [place] [address] PCP - General Internal Medicine 12/15/22 Slide Machine Tender Relationship Specialty Start Date End Date Awilda Garcia MD [address] [place] [address] PCP - General Internal Medicine 12/15/22 Team Status: Inactive Member Role Status Dates Shreya Cat NP-C Primary Care Provider Active Dr. Calixto Mccullough MD Attending Provider, Emergency Provi braeden Active Team Status: Inactive Member Role Status Dates Shreya Cat NP-C Primary Care Provider Active Dr. Popeye Kramer , DO Emergency Provider Active Slide Machine Tender Relationship Specialty Start Date End Date Awilda Garcia MD [address] [place] [address] PCP - General Internal Medicine 12/15/22 Slide Machine Tender Relationship Specialty Start Date End Date Awilda Garcia MD [address] [place] [address] PCP - General Internal Medicine 12/15/22 Slide Machine Tender Relationship Specialty Start Date End Date Awilda Garcia MD [address] [place] [address] PCP - General Internal Medicine 12/15/22 Slide Machine Tender Relationship Specialty Start Date End Date Awilda Garcia MD [address] [place] [address] PCP - General Internal Medicine 12/15/22 Slide Machine Tender Relationship Specialty Start Date End Date Awilda Garcia MD [address] [place] [address] PCP - General Internal Medicine 12/15/22 Slide Machine Tender Relationship Specialty Start Date End Date Awilda Garcia MD [address] [place] [address] PCP - General Internal Medicine 12/15/22 Team Status: Inactive Member Role Status Dates Shreya Emory , CORK PAINTER AND GRADER-C Primary Care Provider Active Dr. Popeye Kramer DO Attending Provider, Emergency Romie rodriguez Active Team Status: Inactive Member Role Status Dates Shreya Cat NP-C Primary Care Provider Active Dr. Ant Alvarez , Emergency Provider Active Slide Machine Tender Relationship Specialty Start Date End Date Awilda Garcia MD [address] [place] [address] PCP - General Internal Medicine 12/15/22 Slide Machine Tender Relationship Specialty Start Date End Date Awilda Garcia MD [address] [place] [address] PCP - General Internal Medicine 12/15/22 Slide Machine Tender Relationship Specialty Start Date End Date Awilda Garcia MD [address] [place] [address] PCP - General Internal Medicine 12/15/22 Team Status: Inactive Member Role Status Dates Shreya Cat NP-C Primary Care Provider Active Dr. Ant Alvarez DO Attending Provider, Emergency Pro vider Active Team Status: Inactive Member Role Status Dates Shreya Cat CORK PAINTER AND GRADER-C Primary Care Provider Active Dr. Nathanael Copeland DO Emergency Provider Active Slide Machine Tender Relationship Specialty Start Date End Date Awilda Garcia MD [address] [place] [address] PCP - General Internal Medicine 12/15/22 Slide Machine Tender Relationship Specialty Start Date End Date Awilda Garcia MD [address] [place] [address] PCP - General Internal Medicine 12/15/22 Slide Machine Tender Relationship Specialty Start Date End Date Awilda Garcia MD [address] [place] [address] PCP - General Internal Medicine 12/15/22 Slide Machine Tender Relationship Specialty Start Date End Date Awilda Garcia MD [address] [place] [address], [place] [address] PCP - General Internal Medicine 12/15/22 Slide Machine Tender Relationship Specialty Start Date End Date Awilda Garcia MD [address] [place] [address], [place] [address] PCP - General Internal Medicine 12/15/22 Slide Machine Tender Relationship Specialty Start Date End Date Awilda Garcia MD [address] [place] [address], [place] [address] PCP - General Internal Medicine 12/15/22 Slide Machine Tender Relationship Specialty Start Date End Date Awilda Garcia MD [address] [place] [address], [place] [address] PCP - General Internal Medicine 12/15/22 Slide Machine Tender Relationship Specialty Start Date End Date Awilda Garcia MD [address] [facility] [address] PCP - General Internal Medicine 12/15/22 Slide Machine Tender Relationship Specialty Start Date End Date Awilda Garcia MD [address] [facility] [place] [address] PCP - General Internal Medicine 12/15/22 Slide Machine Tender Relationship Specialty Start Date End Date Awilda Garcia MD [address] [place] [address], [place] [address] PCP - General Internal Medicine 12/15/22 Slide Machine Tender Relationship Specialty Start Date End Date Awilda Garcia MD [address] [place] [address] PCP - General Internal Medicine 12/15/22 Slide Machine Tender Relationship Specialty Start Date End Date Awilda Garcia MD [address] [place] [address] PCP - General Internal Medicine 12/15/22 Slide Machine Tender Relationship Specialty Start Date End Date Awilda Garcia MD [address] [place] [address] PCP - General Internal Medicine 12/15/22 Naila Weber PA-C [address] [place] [address] Grind Operator Internal Medicine 09/08/24 Prashanth Luna APRN.[employer] [address] [place] [address] Grind Operator Family Medicine 09/08/24 Slide Machine Tender Relationship Specialty Start Date End Date Awilda Garcia MD [address] [place] [address] PCP - General Internal Medicine 12/15/22 Prashanth Luna APRN.[employer] [address] [place] [address] Grind Operator Family Medicine 09/08/24 Slide Machine Tender Relationship Specialty Start Date End Date Awilda Garcia MD [address] [place] [address] PCP - General Internal Medicine 12/15/22 Prashanth Luna, ASSISTANT SERVICE MANAGER.[employer] [address] [place] [address] Grind Operator [facility] 09/08/24 Slide Machine Tender Relationship Specialty Start Date End Date Awilda Garcia MD [address] [place] [address] PCP - General Internal Medicine 12/15/22 Prashanth Luna, ASSISTANT SERVICE MANAGER.[employer] [address] [place] [address] Grind Operator [facility] 09/08/24 Slide Machine Tender Relationship Specialty Start Date End Date Awilda Garcia MD [address] [place] [address] PCP - General Internal Medicine 12/15/22 Prashanth Luna, ASSISTANT SERVICE MANAGER.[employer] [address] [place] [address] [facility] Slide Machine Tender Relationship Specialty Start Date End Date Awilda Garcia MD [address] [place] [address] PCP - General Internal Medicine 12/15/22 Prashanth Luna, ASSISTANT SERVICE MANAGER.[employer] [address] [place] [address] [facility] 09/[facility]/24 Team Status: Active Member Role Status Dates Shreya Cat NP-C Primary Care Provider Active Team Status: Inactive Member Role Status Dates Shreya Cat NP-C Primary Care Provider Active Start: March 26, 2025 End: March 26, 2025 Dr. Gavino Jeffery , Emergency Provider Active Start: March 26, 2025 End: March 26, 2025 Team Status: Active Member Role/Relationship Status Dates Shreya Cat CORK PAINTER AND GRADER-C Primary Care Provider Active Team Status: Inactive Member Role/Relationship Status Dates Shreya Cat CORK PAINTER AND GRADER-C Primary Care Provider Active Start: March 26, 2025 End: March 26, 2025 Dr. Gavino Jeffery , Attending Provider Active Start: March 26, 2025 End: March 26, 2025 Dr. Gavino Jeffery , Emergency Provider Active Start: March 26, 2025 End: March 26, 2025 Team Status: Inactive Member Role/Relationship Status Dates Shreya Cat CORK PAINTER AND GRADER-C Primary Care Provider Active Start: April 14, 2025 End: April 14, 2025 Dr. Harrison Mandujano , Emergency Provider Active Start: April 14, 2025 End: April 14, 2025 Slide Machine Tender Relationship Specialty Start Date End Date Awilda Garcia MD [address] [place] [address] PCP - General Internal Medicine 12/15/22 Prashanth Luna, ASSISTANT SERVICE MANAGER.[employer] [facility] [place] [address] Grind Operator Family Medicine 09/08/24 Slide Machine Tender Relationship Specialty Start Date End Date Awilda Garcia MD [address] [place] [address] PCP - General Internal Medicine 12/15/22 Prashanth Luna, ASSISTANT SERVICE MANAGER.[employer] [address] [place] [address] Grind Operator Family [facility] 09/08/24 Slide Machine Tender Relationship Specialty Start Date End Date Awilda Garcia MD [address] [place] [address] PCP - General Internal Medicine 12/15/22 Prashanth Luna, ASSISTANT SERVICE MANAGER.[facility] [address] [place] [address] Grind Operator Family Medicine 09/08/24 Team Status: Active Member Role/Relationship Status Dates Out of Town Doctor Primary care physician Active Team Status: Inactive Member Role/Relationship Status Dates ROBINA Anglin Primary care physician Active Start: March 26, 2025 End: March 26, 2025 Dr. Gavino Jeffery DO Attending physician Active Start: March 26, 2025 End: March 26, 2025 Dr. Gavino Jeffery DO Emergency Department Physician A ctive Start: March 26, 2025 End: March 26, 2025 Team Status: Inactive Member Role/Relationship Status Dates ROBINA Anglin Primary care physician Active Start: April 14, 2025 End: April 14, 2025 Dr. Harrison Mandujano DO Attending physician Active Start: April 14, 2025 End: April 14, 2025 Dr. Harrison Mandujano DO Emergency Department Physician Active Start: April 14, 2025 End: April 14, 2025 Team Status: Inactive Member Role/Relationship Status Dates Dr. Calixto Mccullough MD Attending physician Active St art: June 21, 2025 End: June 22, 2025 Dr. Calixto Mccullough MD Emergency Department Physician Active Start: June 21, 2025 End: June 22, 2025 Out of Town Doctor Primary care physician Active Start: June 21, 2025 End: June 22, 2025 (unrecognized sect ion and content) No Status Records FoundNo Status Records FoundNo Status Records FoundNo Status Records FoundNo Status Records Found INFORMATION SOURCE (unrecogn ized section and content) DATE CREATED AUTHOR 02/09/2023 [facility] DATE CREATED AUTHOR AUTHOR'S ORGANIZ ATION 12/02/2023 [facility] DATE CREATED AUTHOR AUTHOR'S ORGANIZ ATION 10/23/2024 [facility] DATE CREATED AUTHOR AUTHOR'S ORGANIZ ATION 06/27/2025 [facility] DATE CREATED AUTHOR AUTHOR'S VIVI PEREZ 07/17/2025 [facility] FOR RECORDS PERTAINING TO PATIENTS WHO ARE [...] BE BASED ON THE PRIMARY CLINICAL RECORDS. [facility] [employer] [facility]. provides no warranty or guarantee of the accuracy or completeness of information in this document.
[2025-07-17 06:19] VITALS: BP 120/79; PULSE 89; RESP 18; TEMP 36.4; O2SAT 100
== END 2025-07-17 06:23 | disposition home or self-care (01) ==
PROVIDERS: Emergency Provider Emergency Medicine; PCP Internal Medicine; Visit Provider Emergency Medicine
DX: S92.422A Displaced fracture of distal phalanx of left great toe, initial encounter for closed fracture (principal); W22.03XA Walked into furniture, initial encounter; M20.42 Other hammer toe(s) (acquired), left foot; M20.12 Hallux valgus (acquired), left foot; M85.80 Other specified disorders of bone density and structure, unspecified site; I10 Essential (primary) hypertension; J45.909 Unspecified asthma, uncomplicated; Z79.82 Long term (current) use of aspirin; Z79.899 Other long term (current) drug therapy
CPT/HCPCS: 73630; 99283